=== PATIENT | female | born 1940 | race Caucasian/White ===

== ENCOUNTER 2017-12-20 02:26 | Outpatient (CLI) | payer MEDICARE, OTHER, SELFPAY ==
[2017-12-20 08:49] LABS: HGB 13.1 g/dL (12.0-15.5); Mean Corpuscular Hemoglobin 29.5 pg (27.0-33.0); Mean Corpuscular Volume 92.3 fL (80-95); Mean Platelet Volume 9.6 fL (8.0-11.0); Platelet Count 511 x1000/uL (130-400); RBC 4.44 m/cumm (4.00-5.20); RBC Distribution Width 14.3 % (11.7-14.6); White Blood Cell Count 7.12 k/cumm (4.4-10.8)
[2017-12-20 09:30] LABS: Hemoglobin A1C 6.8 % (4.5-6.2)
[2017-12-20 09:45] LABS: Iron 86 ug/dL (50-175)
== END 2017-12-20 02:46 ==
PROVIDERS: PCP Family Medicine; Visit Provider Family Medicine
DX: D64.9 Anemia, unspecified (principal); E11.9 Type 2 diabetes mellitus without complications
CPT/HCPCS: 36415; 80061; 83721; 85027; 83036; 83540

== ENCOUNTER 2018-03-21 01:41 | Outpatient (CLI) | payer MEDICARE, OTHER, SELFPAY ==
[2018-03-21 09:40] LABS: HCT 40.7 % (36.0-46.0); HGB 13.3 g/dL (12.0-15.5); Mean Corp. HGB Concentration 32.7 g/dL (32.0-36.0); Mean Corpuscular Hemoglobin 30.2 pg (27.0-33.0); Mean Corpuscular Volume 92.3 fL (80-95); Mean Platelet Volume 9.6 fL (8.0-11.0); Platelet Count 512 x1000/uL (130-400); RBC 4.41 m/cumm (4.00-5.20); RBC Distribution Width 14.6 % (11.7-14.6); White Blood Cell Count 7.42 k/cumm (4.4-10.8)
[2018-03-21 10:14] LABS: COMMENT (LAB VIEW ONLY) 142.56 mg/dL; Microalb ug/mg Crea 5.9 ug/mg Cr
[2018-03-21 10:22] LABS: ALT 41 U/L (12-78); AST 24 U/L (15-37); Albumin 3.5 g/dL (3.4-5.0); Alkaline Phosphatase 113 U/L (46-116); Anion Gap 10.2 mmol/L (3-11); BUN 19 mg/dL (7-18); Bilirubin, Total 0.4 mg/dL (0.2-1.0); CO2 27.8 mmol/L (21.0-32.0); CREATININE 0.84 mg/dL (0.55-1.02); Calcium 9.1 mg/dL (8.5-10.1); Chloride 103 mmol/L (98-107); Cholesterol 198 mg/dL (50-200); Ferritin 25 ng/mL (8-388); Glucose 133 mg/dL (70-100); HDL Cholesterol 76 mg/dL (40-60); LDL CHOLESTEROL 98 mg/dL (<100); Potassium 4.3 mmol/L (3.5-5.1); Sodium 141 mmol/L (136-145); TSH (W/Ref FT4) 3.82 uIU/mL (0.358-3.74); Total Protein 6.7 g/dL (6.4-8.2); Triglyceride 85 mg/dL (30-150)
[2018-03-21 11:07] LABS: FREE T4 0.93 ng/dL (0.76-1.46)
== END 2018-03-21 02:01 ==
PROVIDERS: PCP Family Medicine; Visit Provider Family Medicine
DX: F32.9 Major depressive disorder, single episode, unspecified
CPT/HCPCS: 36415; 80053; 80061; 83721; 85027; 82043; 82570; 82728; 83036; 83540; 84439; 84443

== ENCOUNTER 2018-07-03 10:25 | Outpatient (CLI) | payer MEDICARE, OTHER, SELFPAY ==
[2018-07-03 10:51] LABS: HGB 13.7 g/dL (12.0-15.5); Mean Corp. HGB Concentration 32.6 g/dL (32.0-36.0); Mean Corpuscular Hemoglobin 29.8 pg (27.0-33.0); Mean Corpuscular Volume 91.3 fL (80-95); Mean Platelet Volume 9.4 fL (8.0-11.0); Platelet Count 469 x1000/uL (130-400); RBC Distribution Width 14.5 % (11.7-14.6); White Blood Cell Count 6.92 k/cumm (4.4-10.8)
[2018-07-03 11:14] LABS: Hemoglobin A1C 6.9 % (4.5-6.2)
[2018-07-03 12:20] LABS: Iron 85 ug/dL (50-175)
[2018-07-03 12:31] LABS: TSH (W/Ref FT4) 3.09 uIU/mL (0.358-3.74)
== END 2018-07-03 10:45 ==
PROVIDERS: PCP Family Medicine; Visit Provider Family Medicine
DX: D64.9 Anemia, unspecified (principal); E11.9 Type 2 diabetes mellitus without complications; E03.9 Hypothyroidism, unspecified
CPT/HCPCS: 36415; 85027; 83036; 83540; 84443

== ENCOUNTER 2018-07-18 00:07 | Outpatient (CLI) | payer MEDICARE, OTHER, SELFPAY ==
--- NOTE | 2018-07-18 08:30 | ETT_ITS ---
*[facility]* *[facility]* [address] [place] [address] Stress Electrocardiography Jonas protocol Date of study: 07/18/2018 *PATIENT PRESENTATION* Height: 161.3cm (63.5in) Blood Pressure: Weight: 76.8kg (169lb) BSA: 1.88m^2 Referring physician: Rxoy Mehta Ordering physician: Roxy Mehta Impressions: Negative stress test after maximal exercise. Summary: 1. Stress ECG conclusions: The stress ECG is negative. Krishnan treadmill score: 7. This score predicts a low risk of cardiac events. 2. Stress: The target heart rate was achieved. The heart rate response to stress is normal. There is resting hypertension with an appropriate response to stress. The patient experienced no chest pain during stress. Exercise capacity is above normal for age. 3. Treadmill exercise testing was performed using the Jonas protocol. The patient exercised for 7 min, to protocol stage 2, to a maximal work rate of 8.6mets. Exercise was terminated due to fatigue. Indication: R07.9, Appropriate Use Criteria: A (Appropriate). History: REASON FOR VISIT: FOR PAST SEVERAL MONTHS PT REPORTS INTERMITTENT CHEST ACHES AND TIGHTNESS BROUGHT ON BY ACTIVITY, ASSOCIATED WITH SHORTNESS OF BREATH AND SOMETIMES WITH NAUSEA. PT IS RETIRED SHE DOES NOT DUE ANY REGULAR EXERCISE. Risk factors: FORMER SMOKER. QUIT 15 YEARS AGO. SMOKED FOR 40 YEARS, 1/4 PACK A DAY. Family history of coronary artery disease. Hypertension. Diabetes mellitus. Dyslipidemia. Cholesterol: 198mg/dl. HDL: 76mg/dl. LDL: 98mg/dl. Triglycerides: 85mg/dl. ALLERGIES: DOXYCYCLINE. MEDICATIONS: OMEPRAZOLE 20 MG DAILY. METFORMIN 500 MG BID. LOSARTAN 50 MG DAILY. IRON 18 MG DAILY. ESTRADIOL 1 TAB VG 2X/Q WK. ESCITALOPRAM OXALATE 10 MG DAILY. DULOXETINE 60 MG DAILY. VITAMIN D3 2000 UNITS DAILY. ATORVASTATIN 20 MG DAILY. ALBUTEROL SULFATE 2 PUFFS QID PRN. Protocol: Jonas protocol. Baseline ECG: SINUS RHYTHM. HR 77 BPM. Normal ECG. Stress protocol: + +---+ + !Stage !HR !BP (mmHg) ! + +---+ + !Baseline supine !77 !150/100 (117)! + +---+ + !Baseline standing !86 !150/96 (114) ! + +---+ + !Stage I; 1.7mph, 10degrees; 3 min !109!160/100 (120)! + +---+ + !Stage II; 2.5mph, 12degrees; 3 min!125!180/80 (113) ! + +---+ + !Recovery; 1 min !110!200/88 (125) ! + +---+ + !Recovery; 3 min !91 !180/80 (113) ! + +---+ + !Recovery; 6 min !88 !162/82 (109) ! + +---+ + * Stress results: Maximal heart rate during stress was 133bpm (92% of maximal predicted heart rate). The maximal predicted heart rate was 144bpm. The target heart rate was achieved. The heart rate response to stress is normal. There is resting hypertension with an appropriate response to stress. The rate-pressure product for the peak heart rate and blood pressure was 92469oh Hg/min. The patient experienced no chest pain during stress. Exercise capacity is above normal for age. Stress ECG: TREADMILL PORTION OF STRESS TEST ENDED IN 7 MINUTES DUE FATIGUE NORMAL HEART RATE AND BLOOD PRESSURE RESPONSE TO EXERERCISE MAX HR = 133 % OF TARGET = 92 PACs NOTED DURING RECOVERY PHASE. APPROXIMATE METS ACHIEVED = 8.58 NAUSEA AND DIZZYNESS REPORTED UPON IMMEDIATE RECOVERY SUBSIDED WITH LYING DOWN. 3 MINUTES POST EXERCISE CHEST TIGHTNESS REPORTED 2-3 OUT OF 10 ON PAIN SCALE, SUBSIDED WITHIN 2 MINUTES OF REST. 6 MINUTES POST EXERCISE BRIEF TWINGES IN HER LEFT CHEST. SUBSIDED AFTER A FEW SECONDS. NO SIGNIFICAN ST SEGMENT CHANGES ABOVE AVERAGE FUNCTIONAL CAPACITY FOR EXERCISE. The stress ECG is negative. Krishnan treadmill score: 7. This score predicts a low risk of cardiac events. Study data: James Blevins MD supervised and was readily available during the procedure. This study was interpreted by [facility]. Study status: Routine. Consent: The risks, benefits, and alternatives to the procedure were explained to the patient and informed consent was obtained. Procedure: Initial setup. A baseline ECG was recorded. Surface ECG leads and manual cuff blood pressure measurements were monitored. Heart sounds: Murmur. Lung sounds: Normal. Treadmill exercise testing was performed using the Jonas protocol. The patient exercised for 7 min, to protocol stage 2, to a maximal work rate of 8.6mets. Exercise was terminated due to fatigue. Study completion: The patient tolerated the procedure well and was discharged from the lab. Discharge: The patient left the laboratory in stable condition. Birthdate: Patient birthdate: 1940. Sex: Gender: female. Study date: Study date: 07/18/2018. Study time: 00:01 AM. Signature Documentation: The Stress ECG portion of this study was interpreted by James Blevins MD. Electronically signed by James Blevins 07/18/2018 11:01
== END 2018-07-18 00:27 ==
PROVIDERS: PCP Family Medicine; Visit Provider Family Medicine
DX: R07.9 Chest pain, unspecified (principal); R06.02 Shortness of breath; I10 Essential (primary) hypertension; E78.5 Hyperlipidemia, unspecified; Z87.891 Personal history of nicotine dependence; Z82.49 Family history of ischemic heart disease and other diseases of the circulatory system
CPT/HCPCS: 93016; 93018; 93017

== ENCOUNTER 2018-09-05 01:22 | Outpatient (CLI) | payer MEDICARE, OTHER, SELFPAY ==
[2018-09-05 11:21] LABS: Hemoglobin A1C 6.6 % (4.5-6.2)
== END 2018-09-05 01:42 ==
PROVIDERS: PCP Family Medicine; Visit Provider Family Medicine
DX: E11.9 Type 2 diabetes mellitus without complications (principal)
CPT/HCPCS: 36415; 83036

== ENCOUNTER 2019-01-15 02:07 | Outpatient (CLI) | payer MEDICARE, OTHER, SELFPAY ==
[2019-01-15 15:38] LABS: Abs Immature Grans 0.02 k/cumm (0.0-0.09); Absolute Basophil Count 0.04 k/cumm (0.0-0.2); Absolute Eosinophil Count 0.36 k/cumm (0.0-0.7); Absolute Lymphocyte Count 3.02 k/cumm (1.2-3.4); Absolute Neutrophil Count 5.85 k/cumm (1.2-6.7); Basophils % 0.4; Eosinophils % 3.5; HCT 41.2 % (36.0-46.0); HGB 13.5 g/dL (12.0-15.5); Immature Grans % 0.2; Lymphocytes % 29.6; Mean Corp. HGB Concentration 32.8 g/dL (32.0-36.0); Mean Corpuscular Hemoglobin 29.8 pg (27.0-33.0); Mean Corpuscular Volume 90.9 fL (80-95); Mean Platelet Volume 9.3 fL (8.0-11.0); Monocytes % 8.8; Neutrophils % 57.5; Platelet Count 501 x1000/uL (130-400); RBC 4.53 m/cumm (4.00-5.20); RBC Distribution Width 13.9 % (11.7-14.6); White Blood Cell Count 10.19 k/cumm (4.4-10.8)
[2019-01-15 16:13] LABS: Hemoglobin A1C 6.7 % (4.5-6.2); Iron 60 ug/dL (50-175)
[2019-01-15 17:26] LABS: ALT 22 U/L (14-59); AST 15 U/L (15-37); Albumin 3.6 g/dL (3.4-5.0); Alkaline Phosphatase 142 U/L (46-116); Anion Gap 12.4 mmol/L (3-11); BUN 20 mg/dL (7-18); Bilirubin, Total 0.2 mg/dL (0.2-1.0); CO2 24.6 mmol/L (21.0-32.0); CREATININE 0.92 mg/dL (0.55-1.02); Chloride 103 mmol/L (98-107); Estimated GFR 59.19 (mL/min/1.73m2); Ferritin 26 ng/mL (8-388); Glucose 101 mg/dL (70-100); Magnesium 1.8 mg/dL (1.8-2.4); Potassium 4.2 mmol/L (3.5-5.1); Sodium 140 mmol/L (136-145); TSH (W/Ref FT4) 2.51 uIU/mL (0.36-3.74)
[2019-01-15 18:13] LABS: Vitamin B12 1763 pg/mL (193-986)
== END 2019-01-15 02:27 ==
PROVIDERS: PCP Family Medicine; Visit Provider Family Medicine
DX: E11.9 Type 2 diabetes mellitus without complications (principal); I10 Essential (primary) hypertension; D50.9 Iron deficiency anemia, unspecified; D47.3 Essential (hemorrhagic) thrombocythemia; F32.9 Major depressive disorder, single episode, unspecified
CPT/HCPCS: 36415; 80053; 82607; 82728; 83036; 83540; 83735; 84443; 85025

== ENCOUNTER 2019-02-11 01:33 | Outpatient (CLI) | payer MEDICARE, OTHER, SELFPAY ==
[2019-02-11 11:17] LABS: Abs Immature Grans 0.01 k/cumm (0.0-0.09); Absolute Basophil Count 0.02 k/cumm (0.0-0.2); Absolute Eosinophil Count 0.28 k/cumm (0.0-0.7); Absolute Lymphocyte Count 2.15 k/cumm (1.2-3.4); Absolute Monocyte Count 0.44 k/cumm (0.11-0.7); Absolute Neutrophil Count 3.49 k/cumm (1.2-6.7); Basophils % 0.3; Eosinophils % 4.4; HCT 42.3 % (36.0-46.0); HGB 13.5 g/dL (12.0-15.5); Immature Grans % 0.2; Lymphocytes % 33.6; Mean Corp. HGB Concentration 31.9 g/dL (32.0-36.0); Mean Corpuscular Hemoglobin 29.1 pg (27.0-33.0); Mean Corpuscular Volume 91.2 fL (80-95); Monocytes % 6.9; Neutrophils % 54.6; Platelet Count 508 x1000/uL (130-400); RBC 4.64 m/cumm (4.00-5.20); RBC Distribution Width 14.2 % (11.7-14.6); White Blood Cell Count 6.39 k/cumm (4.4-10.8)
[2019-02-11 12:24] LABS: TSH (W/Ref FT4) 2.74 uIU/mL (0.36-3.74)
[2019-02-12 08:20] LABS: T3,Free 4.4 pg/mL (2.8-5.3)
[2019-02-13 12:42] LABS: Metanephrine, Free <0.20 nmol/L (<0.50); Normetanephrine, Free 1.1 nmol/L (<0.90)
== END 2019-02-11 01:53 ==
PROVIDERS: PCP Family Medicine; Visit Provider Family Medicine
DX: D47.3 Essential (hemorrhagic) thrombocythemia (principal); E04.1 Nontoxic single thyroid nodule; E11.9 Type 2 diabetes mellitus without complications; R61 Generalized hyperhidrosis
CPT/HCPCS: 36415; 83036; 83835; 84443; 84481; 85025

== ENCOUNTER 2019-02-11 10:42 | Outpatient (REF) | payer MEDICARE, OTHER, SELFPAY ==
[2019-02-11 15:49] LABS: Creatinine,Urine 154.42 mg/dL
[2019-02-11 15:50] LABS: Creatinine,24hr Ur 1.39 g/24hr (0.60-1.80); Total Volume 950 ml
[2019-02-14 17:48] LABS: Metanephrines, U 84 mcg/24 h; Normetanephrine, U 598 mcg/24 h; Total Metanephrines, U 682 mcg/24 h; Urine Volume 925 mL
[2019-02-15 14:53] LABS: Urine Volume 925 mL
== END 2019-02-11 11:02 ==
LOC: LBN 10:42
PROVIDERS: PCP Family Medicine; Visit Provider Family Medicine
DX: R61 Generalized hyperhidrosis (principal)
CPT/HCPCS: 81050; 82384; 82570; 83835

== ENCOUNTER 2019-02-21 02:21 | Outpatient (CLI) | payer MEDICARE, OTHER, SELFPAY ==
--- NOTE | 2019-02-21 12:50 | DI.US_ITS ---
EXAM: US THYROID CLINICAL HISTORY: thyroid mass on ct scan 2017 E04.1 TECHNIQUE: Ultrasound performed using standard protocol. COMPARISON: CAROTID ULTRASOUND from 02/03/2015 CHEST FOR PULMONARY EMBOLUS from 08/28/2016 FINDINGS: The right lobe measures 4.9 x 2.1 x 1.9 centimeters. There is a 3 x 1 x 1.5 centimeter cystic lesion in the lateral aspect of the right lobe of the thyroid gland. There is a thin septation seen superi david. No internal blood flow is present. There is a 1.2 x 0.9 x 0.9 centimeter lesion in the superi or pole of the right lobe of the thyroid gland. Lesion contains septations and a vascular solid compo nent internally. There are several smaller simple cystic lesions seen in the right lobe of the thyro id gland. There is also a small avascular solid nodule in the right lobe of the thyroid gland. This measures 0.6 centimeters. The left lobe measures 3.4 x 1.4 x 1.2 centimeters. There are several cystic lesions seen within the left lobe. There are 2 cystic lesions in the mid left lobe. They both measure 0.7 x 0.5 x 0.7 cent imeters. They each contain a thin septation and show no internal blood flow. The isthmus is within normal limits. IMPRESSION: Multinodular thyroid gland. Complex nodule in the upper pole of the right lobe of the thyroid gland. The nodule contains solid v ascular components internally. Due to the internal characteristics of this nodule, further evaluatio n is warranted. Biopsy should be considered.
== END 2019-02-21 02:41 ==
PROVIDERS: PCP Family Medicine; Visit Provider Family Medicine
DX: E04.2 Nontoxic multinodular goiter (principal); E07.89 Other specified disorders of thyroid
CPT/HCPCS: 76536

== ENCOUNTER 2019-03-04 10:47 | Outpatient (REF) | payer MEDICARE, OTHER, SELFPAY ==
[2019-03-07 10:29] LABS: 5-Hydroxyindoleacetic Acid, U 3.6 mg/24 h (<=8.6); Urine Volume 1325 mL
== END 2019-03-04 11:07 ==
LOC: LBN 10:47
PROVIDERS: PCP Family Medicine; Visit Provider Family Medicine
DX: R23.2 Flushing (principal); E04.2 Nontoxic multinodular goiter
CPT/HCPCS: 81050; 83497

== ENCOUNTER 2019-03-08 01:48 | Outpatient (CLI) | payer MEDICARE, OTHER, SELFPAY ==
[2019-03-08] MEDS: Breeza Beverage 473 ML BTL PO ×2 (07:05→07:06)
[2019-03-08] MEDS: Omnipaque 350 MG/ML 50 ML BTL PO (07:06)
[2019-03-08] MEDS: Omnipaque 350 MG/ML 100 ML BTL IV (07:46)
[2019-03-08] MEDS: Normal Saline Flush 10 ML SYR IVP (07:49)
[2019-03-08 07:56] LABS: ALT 27 U/L (14-59); AST 20 U/L (15-37); Albumin 3.3 g/dL (3.4-5.0); Alkaline Phosphatase 121 U/L (46-116); Anion Gap 8.8 mmol/L (3-11); BUN 21 mg/dL (7-18); Bilirubin, Total 0.2 mg/dL (0.2-1.0); CO2 26.2 mmol/L (21.0-32.0); CREATININE 0.79 mg/dL (0.55-1.02); Calcium 8.7 mg/dL (8.5-10.1); Chloride 106 mmol/L (98-107); Glucose 158 mg/dL (74-106); Potassium 3.9 mmol/L (3.5-5.1); Sodium 141 mmol/L (136-145); Total Protein 6.9 g/dL (6.4-8.2)
[2019-03-08 08:08] LABS: ESR 15 mm/hr (0-30)
--- NOTE | 2019-03-08 08:15 | DI.CT_ITS ---
EXAM: CT CHEST/ABD/PEL W CLINICAL HISTORY: ? carcinoid tumor flush/increased BP/h/o PE TECHNIQUE: Imaging Protocol: Axial computed tomography images with coronal and sagittal reformatted images were created and reviewed CONTRAST MATERIAL: Intravenous: Omnipaque 350 Contrast volume:100 mL contrast route:IV - Oral: Yes COMPARISON: ABD PELVIS WITH CONTRAST from 03/06/2012 ABD PELVIS WITH CONTRAST from 09/04/2013 CHEST FOR PULMONARY EMBOLUS from 07/26/2016 CHEST FOR PULMONARY EMBOLUS from 08/28/2016 FINDINGS: CHEST: Tracheobronchial tree: Patent where visualized. Mediastinum and Yulisa: No dominant adenopathy or fluid collection. Pulmonary parenchyma: Dependent atelectasis. No focal consolidating infiltrate. No pulmonary nodule . No architectural distortion. Pleura: No effusion or pneumothorax. Lymph nodes: Within normal limits. Aorta: Atherosclerosis. No aneurysmal dilatation. Thyroid gland: There are multiple bilateral thyroid nodules. The largest is in the lobe. Nonemergen t thyroid ultrasound may be obtained for further evaluation. Heart: There is no cardiomegaly or pericardial effusion. Coronary artery calcifications are present. Bones: Degenerative changes are present. ABDOMEN: Liver: There is diffuse fatty infiltration. No suspicious hepatic mass is seen. The portal, superio r mesenteric and splenic veins are patent. Gallbladder and biliary tract: Cholelithiasis. No biliary ductal dilatation. Pancreas: Normal density, no abnormal calcifications or inflammatory process. Spleen: There is a calcified granuloma. Kidneys: Normal size, contour and axis. No radiodense stones or obstructive uropathy. No masses seen. Adrenal glands: No masses seen. Aorta: Atherosclerosis. No aneurysmal dilatation. Lymph nodes: Within normal limits. PELVIS: Bladder: Symmetric distention, no gross wall thickening. Bowel: No obstruction or bowel wall thickening. No evidence of an acute appendicitis. There is a lar ge hiatal hernia. Peritoneal cavity: No ascites, collection or mesenteric inflammatory response. There has been no tucker ge in size or appearance of the 3.3 centimeter fluid attenuation lesion posterior to the descending c olon. This has been present and stable dating back to the oldest available CT scan from 03/06/2012. Bones: There are degenerative changes seen in the spine Reproductive organs: Unremarkable as visualized. IMPRESSION: 1. No evidence of an acute abdominal or pelvic process. 2. Hepatic steatosis. 3. Stable fluid attenuation lesion since 2011. 4. No acute pulmonary process. No evidence of a thoracic mass or metastatic disease. 5. Thyroid nodules. Thyroid ultrasound may be obtained for further evaluation. DATA REPOSITORY: All CT scans at this facility are submitted to the National Radiology Data Registry (NRDR) Dose Index Registry (DIR) with the [employer] (ACR). RADIATION OPTIMIZATION: All CT scans at this facility use at least one of these dose optimization te chniques: automated exposure control; mA and/or kV adjustment per patient size (includes targeted exa ms where dose is matched to clinical indication); or iterative reconstruction.
== END 2019-03-08 02:08 ==
PROVIDERS: PCP Family Medicine; Visit Provider Family Medicine
DX: R03.0 Elevated blood-pressure reading, without diagnosis of hypertension (principal); R23.2 Flushing; R61 Generalized hyperhidrosis; R68.89 Other general symptoms and signs; K76.0 Fatty (change of) liver, not elsewhere classified; E04.2 Nontoxic multinodular goiter; K80.20 Calculus of gallbladder without cholecystitis without obstruction; K44.9 Diaphragmatic hernia without obstruction or gangrene; Z86.711 Personal history of pulmonary embolism
CPT/HCPCS: 74177; 80053; 85652; 71260; J3490; Q9967

== ENCOUNTER 2019-03-29 03:13 | Outpatient (CLI) | payer MEDICARE, OTHER, SELFPAY ==
--- NOTE | 2019-03-29 13:52 | DI.US_ITS ---
APPROVED REPORT EXAM: Comprehensive 2D, Doppler, and color-flow Echocardiogram Patient Location: Out-Patient Disease Education Specialist: Nataliia Antonio RDCS (AE) Rhythm: NSR Indications: SOB FOLLOW UP z09 encounter for follow up examination after complete treatment for con ditions other than malignant. Conclusion Normal LV size and wall thickness, LV systolic function is hyperdynamic, EF 65-70% There is no chamber enlargement Mildy thickened mitral and aortic valve leaflets Trace mitral and aortic regurgitation Trace to mild pulmonic and tricus[pid regurgitation Wall motion Left Ventricle The left ventricle is normal size. Left ventricular systolic function is hyperdynamic. There is robert l left ventricular wall thickness. There is normal LV segmental wall motion. abnormal relax with vals vilchis. LVEF is estimated to be 65-70%. Right Ventricle The right ventricle is normal size. The right ventricular systolic function appears normal. Atria The left atrium size is normal. The right atrium size is normal. Aortic Valve Aortic valve is trileaflet. Aortic valve is mildly thickened There is no aortic valvular stenosis. Tr liudmila aortic regurgitation. Mitral Valve Mitral valve leaflets are mildly thickened. Trace mitral regurgitation. Tricuspid Valve The tricuspid valve is normal in structure. Mild tricuspid regurgitation. Pulmonic Valve Trace to mild pulmonic regurgitation. Great Vessels The aortic root is normal in size. The ascending aorta is top normal in size. IVC is normal in size a nd collapses >50% with inspiration. Pericardium Prominent anterior epicardial fat pad is present. 2D Dimensions IVSd 0.90 cm F: 0.6-1.0 LV EDV A2C 71.10 mL PWd 0.90 cm F: 0.6 - 1.0 LV EDV A4C 64.50 mL LVDd 4.10 cm F: 3.8 - 5.2 LA Volume Index A2C 21.13 mL/m2 LVDs 2.45 cm F: 2.2 - 3.5 LA Volume Index A4C 25.11 mL/m2 Aortic Root 3.25 cm F: 2.7 - 3.3 LA Volume Index Biplane 23.98 mL/m2 RA Area A4C 11.63 cm2 LA Area A4C 17.43 cm2 LVOT 1.90 cm (M/F) 1.5-2.5 LA Area A2C 16.65 cm2 Ascending Aorta 3.49 cm F: 2.3 - 3.1 EF AP4 65.27 % LVEF (Teich) 71.25 % EF AP2 68.64 % LVEF (Myers's) 66.69 % F: 54 - 74 EF BP 66.69 % LV Volume 51.83 mL F: 46 - 106 LV Volume Index 28.01 mL/m2 F: 29 - 61 FS 40.10 % LV Diastology E/A Ratio 0.7 MED E' 0.08 (>0.07 m/s) LV E/e MED 9.15 (<14) LAT E' 0.11 (>0.1 m/s) LV E/e LAT 7.05 (<14) Aortic Valve LVOT Area 2.94 cm2 LVOT Vmax 1.47 m/s LVOT Mean Santosh. 1.12 m/s LVOT Peak Gr. 8.6 mmHg AoV Area Vmax 0.00 m/s LVOT Mean Gr. 5.4 mmHg AoV Area/ BSA (Vmax) 0.96 cm2/m2 LVOT VTI 0.267 m EMMANUEL Mean Santosh. 0.00 m/s AoV Vmax 2.43 (0.5-1.3 m/s) EMMANUEL Mean Santosh. Index 1.09 cm2/m2 AoV Mean Santosh. 1.63 m/s AoV Peak Grad 23.7 mmHg AoV Mean Grad 12.1 (<5 mmHg) AoV VTI 0.411 (0.18-0.25 m) VTI Ratio 0.71 AoV Area VTI 2.07 (2.5-4.5 cm2) AoV Area/ BSA (VTI) 1.12 cm/m2 Mitral Valve MV E Max Santosh. 0.77 (0.4-1.3 m/s) MV A Velocity 1.10 (0.4-1.3 m/s) E/A Ratio 0.70 MV Decel. Time 173.40 (160-240 msec) MV PHT 50.29 msec MVA PHT 4.35 cm2 Pulmonary Valve PV Peak Velocity 1.16 (0.5-1.5 m/s) RVOT Peak Gr. 3.84 mmHg RVOT Peak Santosh. 0.98 m/s RVOT Mean Gr. 2.00 mmHg RVOT VTI 0.15 m Tricuspid Valve TR P. Velocity 3.01 m/s TV Regurg Vmax 3.01 m/s RAP Estimate 3.00 mmHg RVSP 39.00 mmHg TR P. Gradient 36.15 mmHg
== END 2019-03-29 03:33 ==
PROVIDERS: PCP Family Medicine; Visit Provider Family Medicine
DX: R06.02 Shortness of breath (principal); I34.8 Other nonrheumatic mitral valve disorders; I35.1 Nonrheumatic aortic (valve) insufficiency; I36.1 Nonrheumatic tricuspid (valve) insufficiency
CPT/HCPCS: 93306

== ENCOUNTER 2019-04-10 02:25 | Outpatient (CLI) | payer MEDICARE, OTHER, SELFPAY ==
[2019-04-10 09:53] LABS: Hemoglobin A1C 6.5 % (3.8-5.6)
[2019-04-10 10:42] LABS: ALT 40 U/L (14-59); AST 16 U/L (15-37); Albumin 3.6 g/dL (3.4-5.0); Alkaline Phosphatase 138 U/L (46-116); BUN 21 mg/dL (7-18); Bilirubin, Total 0.3 mg/dL (0.2-1.0); CREATININE 1.03 mg/dL (0.55-1.02); Calcium 9.6 mg/dL (8.5-10.1); Chloride 101 mmol/L (98-107); Estimated GFR 51.96 (mL/min/1.73m2); Glucose 137 mg/dL (74-106); Potassium 4.3 mmol/L (3.5-5.1); Sodium 140 mmol/L (136-145); TSH (W/Ref FT4) 4.06 uIU/mL (0.36-3.74); Total Protein 6.9 g/dL (6.4-8.2)
[2019-04-10 11:04] LABS: FREE T4 0.84 ng/dL (0.76-1.46)
[2019-04-11 05:41] LABS: Vitamin D 25 Total 58.5 ng/ml (30-100)
== END 2019-04-10 02:45 ==
PROVIDERS: PCP Family Medicine; Visit Provider Family Medicine
DX: I10 Essential (primary) hypertension (principal); E11.9 Type 2 diabetes mellitus without complications; E07.89 Other specified disorders of thyroid; M85.80 Other specified disorders of bone density and structure, unspecified site
CPT/HCPCS: 36415; 80053; 82306; 82397; 83036; 84439; 84443

== ENCOUNTER 2019-04-25 02:16 | Outpatient (CLI) | payer MEDICARE, OTHER, SELFPAY ==
[2019-04-25 10:30] LABS: HCT 42.2 % (36.0-46.0); HGB 13.8 g/dL (12.0-15.5); Mean Corp. HGB Concentration 32.7 g/dL (32.0-36.0); Mean Corpuscular Hemoglobin 29.6 pg (27.0-33.0); Mean Corpuscular Volume 90.4 fL (80-95); Platelet Count 512 x1000/uL (130-400); RBC 4.67 m/cumm (4.00-5.20); RBC Distribution Width 13.1 % (11.7-14.6); White Blood Cell Count 6.97 k/cumm (4.4-10.8)
[2019-04-25 11:30] LABS: Iron 60 ug/dL (50-170)
[2019-04-25 11:39] LABS: TSH (W/Ref FT4) 2.23 uIU/mL (0.36-3.74)
[2019-04-30 16:02] LABS: PTH-Related Peptide <0.4 pmol/L (< or = 4.2)
== END 2019-04-25 02:36 ==
PROVIDERS: PCP Family Medicine; Visit Provider Family Medicine
DX: D64.9 Anemia, unspecified (principal); E11.9 Type 2 diabetes mellitus without complications; E07.9 Disorder of thyroid, unspecified; I10 Essential (primary) hypertension; E03.9 Hypothyroidism, unspecified
CPT/HCPCS: 36415; 85027; 82397; 83036; 83540; 84443

== ENCOUNTER 2019-06-20 00:35 | Outpatient (CLI) | payer MEDICARE, OTHER, SELFPAY ==
--- NOTE | 2019-06-20 09:15 | DI.CT_ITS ---
EXAM: CT SINUS WO CLINICAL HISTORY: chronic sinusitis, J32.9 COMPARISON: No exams were available for comparison FINDINGS: CT examination of the paranasal sinuses was performed without contrast administration. Images obtain ed through the brain are unremarkable. The orbital structures appear intact. Mastoid air cells and temporal bone structures are unremarkable. There is moderate mucoperiosteal thickening of left maxillary antrum, ethmoid air cells, and frontal sinus. There may be fluid in left maxillary antrum. Ostiomeatal complex appears obstructed on the le ft. No significant findings involving the paranasal sinuses or nasal cavity on the right. The sphenoid s inuses are clear. IMPRESSION: Findings consistent with chronic and acute left maxillary, frontal, and ethmoid sinusitis. There shireen ears to be obstruction of the infundibulum of the ostiomeatal complex on the left. No sinus expansio n or bony erosion.
== END 2019-06-20 00:55 ==
PROVIDERS: PCP Family Medicine; Visit Provider Family Medicine
DX: J32.0 Chronic maxillary sinusitis (principal); J32.1 Chronic frontal sinusitis; J32.2 Chronic ethmoidal sinusitis
CPT/HCPCS: 70486

== ENCOUNTER 2019-09-17 16:04 | Outpatient (REF) | payer MEDICARE, OTHER, SELFPAY | END 2019-09-17 16:24 | LOC: LBN 16:04 | PROVIDERS: PCP Family Medicine; Visit Provider Family Medicine | DX: N76.0 Acute vaginitis (principal) | CPT/HCPCS: 87480; 87510; 87660 ==

== ENCOUNTER 2019-09-18 09:46 | Outpatient (CLI) | payer MEDICARE, OTHER, SELFPAY ==
--- NOTE | 2019-09-18 13:25 | DI.RAD_ITS ---
EXAM: XR KNEE RT 3V AP,LAT,JAYSON CLINICAL HISTORY: r knee pain, M25.561. TECHNIQUE: 2D digital imaging was performed. COMPARISON: CR LEFT ANKLE COMPLETE from 09/08/2014 FINDINGS: BONES: No acute fracture is present. No bony destructive lesion is seen. JOINTS: Femoral tibial joint spaces are mildly narrowed. There is mild periarticular spurring. Ther e is severe narrowing of the patellofemoral joint which shows moderate spurring. No joint effusion i s seen. SOFT TISSUE: Normal. 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 DATA REPOSITORY: RADIATION DOSE DELIVERED:
--- NOTE | 2019-09-18 13:30 | DI.RAD_ITS ---
EXAM: XR LUMBAR SPINE COMPLETE CLINICAL HISTORY: lbp, M54.5. TECHNIQUE: 2D digital imaging was performed. COMPARISON: No exams were available for comparison FINDINGS: BONES: Vertebral bodies are well maintained in height. Endplate osteophytes are seen throughout. Th ere is severe narrowing of the L3-4, L4-5 and L5-S1 disc spaces. Facet degenerative changes are also present at these levels. ALIGNMENT: Lumbar spinal alignment is within normal limits. SOFT TISSUE: Calcification is seen in the abdominal aorta.. IMPRESSION: Severe degenerative changes from L3-4 through L5-S1. DATA REPOSITORY: RADIATION DOSE DELIVERED:
== END 2019-09-18 10:06 ==
PROVIDERS: PCP Family Medicine; Visit Provider Family Medicine
DX: M54.5 Low back pain (principal); M51.37 Other intervertebral disc degeneration, lumbosacral region; M25.561 Pain in right knee; M17.11 Unilateral primary osteoarthritis, right knee; M22.2X2 Patellofemoral disorders, left knee
CPT/HCPCS: 73562; 72110

== ENCOUNTER 2019-10-18 10:10 | Outpatient (CLI) | payer MEDICARE, OTHER, SELFPAY ==
[2019-10-24 22:36] LABS: SARS-CoV-2 RNA Undetected (Undetected); SARS-CoV-2 Specimen Source Nasopharynx
== END 2019-10-18 10:30 ==
PROVIDERS: PCP Family Medicine; Visit Provider Family Medicine
DX: R05 Cough (principal)
CPT/HCPCS: U0003

== ENCOUNTER 2019-12-27 01:45 | Outpatient (CLI) | payer MEDICARE, OTHER, SELFPAY ==
[2019-12-27 12:48] LABS: HCT 37.4 % (36.0-46.0); HGB 11.9 g/dL (11.2-15.7); MCH 26.7 pg (27.0-33.0); MCHC 31.8 % (32.0-36.0); MPV 9.7 fL (8.0-11.0); Platelet Count 560 10^3/uL (130-400); RBC 4.45 10^6/uL (3.93-5.22); RDW 14.9 % (11.7-14.6); RDW-SD 45.1 fL; WBC 7.15 10^3/uL (4.4-10.8)
[2019-12-27 13:37] LABS: ALT 28 U/L (14-59); AST 19 U/L (15-37); Albumin 3.4 g/dL (3.4-5.0); Alkaline Phosphatase 152 U/L (46-116); Anion Gap 10.6 mmol/L (3-11); BUN 21 mg/dL (7-18); Bilirubin, Total 0.3 mg/dL (0.2-1.0); CO2 25.4 mmol/L (21.0-32.0); CREATININE 0.99 mg/dL (0.55-1.02); Calcium 9.2 mg/dL (8.5-10.1); Chloride 105 mmol/L (98-107); Estimated GFR 54.25 (mL/min/1.73m2); Glucose 171 mg/dL (74-106); Potassium 4.6 mmol/L (3.5-5.1); Sodium 141 mmol/L (136-145); TSH (W/Ref FT4) 2.45 uIU/mL (0.36-3.74); Total Protein 6.7 g/dL (6.4-8.2)
[2019-12-27 13:48] LABS: Hemoglobin A1C 7.1 % (<5.7)
== END 2019-12-27 02:05 ==
PROVIDERS: PCP Family Medicine; Visit Provider Family Medicine
DX: E03.9 Hypothyroidism, unspecified (principal); E11.9 Type 2 diabetes mellitus without complications; R53.83 Other fatigue
CPT/HCPCS: 36415; 80053; 85027; 83036; 84443

== ENCOUNTER 2020-04-08 04:21 | Outpatient (CLI) | payer MEDICARE, OTHER, SELFPAY ==
[2020-04-08 12:53] LABS: HCT 29.3 % (36.0-46.0); HGB 8.6 g/dL (11.2-15.7); MCH 22.8 pg (27.0-33.0); MCHC 29.4 % (32.0-36.0); MCV 77.7 fL (80-95); MPV 8.9 fL (8.0-11.0); RBC 3.77 10^6/uL (3.93-5.22); RDW 15.7 % (11.7-14.6); RDW-SD 43.8 fL; WBC 10.44 10^3/uL (4.4-10.8)
[2020-04-08 13:20] LABS: Hemoglobin A1C 7.2 % (<5.7)
[2020-04-08 13:21] LABS: Platelet Count 727 10^3/uL (130-400)
== END 2020-04-08 04:41 ==
PROVIDERS: PCP Family Medicine; Visit Provider Family Medicine
DX: E11.9 Type 2 diabetes mellitus without complications (principal); D47.3 Essential (hemorrhagic) thrombocythemia
CPT/HCPCS: 36415; 85027; 83036

== ENCOUNTER 2020-04-13 02:26 | Outpatient (CLI) | payer MEDICARE, OTHER, SELFPAY ==
[2020-04-13 09:04] LABS: Abs Immature Grans 0.04 10^3/uL (0.0-0.06); Absolute Basophil Count 0.08 10^3/uL (0.0-0.2); Absolute Eosinophil Count 0.33 10^3/uL (0.0-0.7); Absolute Lymphocyte Count 2.56 10^3/uL (1.2-3.4); Absolute Monocyte Count 0.61 10^3/uL (0.1-0.8); Absolute Neutrophil Count 4.95 10^3/uL (1.2-6.7); Basophils % 0.9; Eosinophils % 3.9; HCT 28.3 % (36.0-46.0); HGB 8.2 g/dL (11.2-15.7); Immature Grans % 0.5; Lymphocytes % 29.9; MCH 22.5 pg (27.0-33.0); MCV 77.7 fL (80-95); MPV 8.8 fL (8.0-11.0); Monocytes % 7.1; Neutrophils % 57.7; Nucleated RBC 0 %; Platelet Count 564 10^3/uL (130-400); RBC 3.64 10^6/uL (3.93-5.22); RDW 15.5 % (11.7-14.6); RDW-SD 43.4 fL; WBC 8.57 10^3/uL (4.4-10.8)
[2020-04-13 09:15] LABS: Prothrombin Time 9.9 sec (9.3-11.0)
[2020-04-13 09:26] LABS: Diff Comment RBC Morph Reviewed; Hypochromasia 2+; Microcytosis 1+; Poikilocytes 1+; Polychromasia Present
[2020-04-13 09:27] LABS: Iron 15 ug/dL (50-170)
[2020-04-13 09:40] LABS: Ferritin 8 ng/mL (8-252); TSH (W/Ref FT4) 2.25 uIU/mL (0.36-3.74)
== END 2020-04-13 02:46 ==
PROVIDERS: PCP Family Medicine; Visit Provider Family Medicine
DX: D64.9 Anemia, unspecified (principal); E03.9 Hypothyroidism, unspecified; R53.83 Other fatigue
CPT/HCPCS: 36415; 82728; 83540; 84443; 85025; 85610

== ENCOUNTER 2020-04-23 04:19 | Outpatient (RCR) | payer MEDICARE, OTHER, SELFPAY ==
[2020-04-15] MEDS: SODIUM FER. GLUC./SUC. 125 MG in Normal Saline 100 ML 110 MG IVPB (13:13)
[2020-04-15] MEDS: Normal Saline Flush 10 ML SYR IVP (13:24)
[2020-04-23] MEDS: SODIUM FER. GLUC./SUC. 125 MG in Normal Saline 100 ML 110 MG IVPB (12:42)
[2020-04-23] MEDS: Normal Saline Flush 10 ML SYR IVP (12:42)
[2020-04-23 12:46] VITALS: BP 142/70; PULSE 106; RESP 22; O2SAT 94
== END 2020-05-03 23:59 | disposition home or self-care (01) ==
LOC: INF 04:19
PROVIDERS: PCP Family Medicine; Visit Provider Family Medicine
DX: D50.9 Iron deficiency anemia, unspecified (principal)
CPT/HCPCS: 96365; J2916

== ENCOUNTER 2020-04-28 03:35 | Outpatient (CLI) | payer MEDICARE, OTHER, SELFPAY ==
[2020-04-28 12:41] LABS: HCT 32.6 % (36.0-46.0); HGB 9.4 g/dL (11.2-15.7); MCH 22.8 pg (27.0-33.0); MCHC 28.8 % (32.0-36.0); MCV 79.1 fL (80-95); MPV 9.4 fL (8.0-11.0); Platelet Count 698 10^3/uL (130-400); RBC 4.12 10^6/uL (3.93-5.22); RDW 20.2 % (11.7-14.6); RDW-SD 52.4 fL; WBC 8.69 10^3/uL (4.4-10.8)
[2020-04-28 13:09] LABS: ALT 24 U/L (14-59); AST 15 U/L (15-37); Albumin 3.5 g/dL (3.4-5.0); Alkaline Phosphatase 183 U/L (46-116); Anion Gap 9.8 mmol/L (3-11); BUN 25 mg/dL (7-18); Bilirubin, Total 0.3 mg/dL (0.2-1.0); CO2 24.2 mmol/L (21.0-32.0); CREATININE 1.05 mg/dL (0.55-1.02); Calcium 9.2 mg/dL (8.5-10.1); Chloride 102 mmol/L (98-107); Estimated GFR 50.69 (mL/min/1.73m2); Glucose 243 mg/dL (74-106); Potassium 4.8 mmol/L (3.5-5.1); Sodium 136 mmol/L (136-145); Total Protein 7.2 g/dL (6.4-8.2)
[2020-04-28 13:19] LABS: NT-proBNP 23 pg/mL (<300)
[2020-04-28 13:23] LABS: D-Dimer 5183 ng/mlFEU (<500)
== END 2020-04-28 03:55 ==
PROVIDERS: PCP Family Medicine; Visit Provider Family Medicine
DX: R06.02 Shortness of breath (principal); R53.83 Other fatigue; D64.9 Anemia, unspecified
CPT/HCPCS: 36415; 80053; 85027; 83880; 85379

== ENCOUNTER 2020-04-28 12:31 | Outpatient (CLI) | payer MEDICARE, OTHER, SELFPAY ==
--- NOTE | 2020-04-28 13:30 | DI.CT_ITS ---
EXAM: CT CHEST/ABD/PEL WO CLINICAL HISTORY: severe SOB, fatigue, anemia, R53.83, D64.9, R06.02. TECHNIQUE: Imaging Protocol: Axial computed tomography images with coronal and sagittal reformatted images were created and reviewed CONTRAST MATERIAL: Intravenous: Omnipaque 350 Contrast volume:82 cc. Oral: / no COMPARISON: CT CT CHEST/ABD/PEL W from 03/08/2019 FINDINGS: There is infiltration of the IV during the injection. Contrast is noted within the renal collecting systems. CHEST: Tracheobronchial tree: Patent where visualized. Mediastinum and Yulisa: No dominant adenopathy or fluid collection. Pulmonary parenchyma: Mild dependent changes. No consolidation or dominant measurable mass. No arch itectural distortion. Pleura: No effusion or pneumothorax. Lymph nodes: Within normal limits. Aorta: Thoracic portion non-dilated. Mild calcification. Normal diameter. Heart: Normal size. Mild coronary artery calcifications. Bones: ABDOMEN: Liver: Normal density. No measurable mass. Gallbladder and biliary tract: No radiodense calculus or dilation. Pancreas: Normal density, no abnormal calcifications or inflammatory process. Spleen: Normal. Kidneys: Normal size, contour and axis. No radiodense stones or obstructive uropathy. No masses seen. Adrenal glands: No masses seen. Aorta: Abdominal portion non-dilated. Lymph nodes: Within normal limits. PELVIS: Bladder: Symmetric distention, no gross wall thickening. Bowel: Moderate-sized hiatal hernia. No obstruction or bowel wall thickening. Mild diverticulosis s igmoid. Peritoneal cavity: No ascites, collection or mesenteric inflammatory response. Stable smoothly margin ated fluid collection posterior to the descending colon. Bones: Degenerative changes. No compression fractures. Reproductive organs: Status post hysterectomy. IMPRESSION: Somewhat limited exam due to IV malfunction. No acute abnormality is demonstrated in the chest, abdo men or pelvis. RADIATION DOSE DELIVERED: 701.95 mGy.cm Total DLP DATA REPOSITORY: All CT scans at this facility are submitted to the National Radiology Data Registry (NRDR) Dose Index Registry (DIR) with the [employer] (ACR). RADIATION OPTIMIZATION: All CT scans at this facility use at least one of these dose optimization te chniques: automated exposure control; mA and/or kV adjustment per patient size (includes targeted exa ms where dose is matched to clinical indication); or iterative reconstruction.
--- NOTE | 2020-04-28 17:21 | DI.VRAD_ITS ---
PROCEDURE INFORMATION: Exam: CT Chest Without Contrast; Diagnostic Exam date and time: 04/28/2020 4:20 PM Age: 79 years old Clinical indication: Other: Fatigue, anemia; Shortness of breath TECHNIQUE: Imaging protocol: Diagnostic computed tomography of the chest without contrast. Radiation optimization: All CT scans at this facility use at least one of these dose optimization techniques: automated exposure control; mA and/or kV adjustment per patient size (includes targeted exams where dose is matched to clinical indication); or iterative reconstruction. COMPARISON: CT CHEST/ABD/PEL W 03/08/2019 8:15 AM FINDINGS: Lungs: The central airways are patent. There is no bronchiectasis or bronchiolectasis. There is mild bibasilar atelectasis, left greater than right, without clear change from prior study. Lungs otherwise clear. Pleural space: There are no layering pleural effusions. Heart: There is mild coronary artery calcification. Mediastinal space: Again noted is a moderate sliding hiatal hernia. Aorta: There is mild to moderate atherosclerotic calcification of the thoracic aorta without aneurysm formation. Lymph nodes: There is no thoracic adenopathy. Bones/joints: Multilevel [id number] degenerative changes. No acute fracture. Soft tissues: Unremarkable. IMPRESSION: 1. No evidence for infectious or neoplastic process within the chest. 2. Moderate sliding hiatal hernia. PROCEDURE INFORMATION: Exam: CT Abdomen And Pelvis Without Contrast Exam date and time: 04/28/2020 4:20 PM Age: 79 years old Clinical indication: Other: Fatigue, anemia; Shortness of breath TECHNIQUE: Imaging protocol: Computed tomography of the abdomen and pelvis without contrast. Radiation optimization: All CT scans at this facility use at least one of these dose optimization techniques: automated exposure control; mA and/or kV adjustment per patient size (includes targeted exams where dose is matched to clinical indication); or iterative reconstruction. COMPARISON: CT CHEST/ABD/PEL W 03/08/2019 8:15 AM FINDINGS: Liver: The liver parenchyma demonstrates normal attenuation, without evidence for steatosis. Gallbladder and bile ducts: Normal. No calcified stones. No ductal dilation. Pancreas: The pancreas is moderately atrophic but appears otherwise unremarkable without focal lesion or evidence of acute inflammation. Spleen: There is a punctate calcification in the spleen, as on prior study, suggesting a tiny granuloma. The spleen is normal in size. Adrenal glands: Normal. No mass. Kidneys and ureters: There is contrast opacified urine within the renal collecting systems and ureters suggesting recent intravenous contrast administration. Stomach and bowel: There are scattered distal colonic diverticula without evidence for acute diverticulitis. There is no evidence for bowel obstruction or inflammation. There is a 3.5 x 2.4 cm homogeneous fluid density lesion posterior to the descending colon which partially abuts the posterior wall of the descending colon in this region, as seen on image 61, series 6, stable since prior study. Appendix: The appendix is not clearly visualized, but there is no right lower quadrant inflammatory change identified. Intraperitoneal space: Unremarkable. No free air. No significant fluid collection. Vasculature: There is moderate atherosclerotic calcification of the abdominal aorta and iliac arteries without aneurysm formation. Lymph nodes: Unremarkable. No enlarged lymph nodes. Urinary bladder: Unremarkable as visualized. Reproductive: The patient is status post hysterectomy. Bones/joints: There is mild facet arthrosis of the lower lumbar spine as well as multilevel moderate degenerative disc disease of the lumbar spine. No acute fractures are identified. Soft tissues: Unremarkable. IMPRESSION: 1. No evidence for neoplasm or inflammatory process within the abdomen or pelvis. 2. Stable fluid attenuation lesion posterior to the descending colon, likely benign. Dictated and Authenticated by: Adam Austin MD. Ordering:LISA Ramsey MD
== END 2020-04-28 12:51 ==
PROVIDERS: PCP Family Medicine; Visit Provider Family Medicine
DX: R06.02 Shortness of breath (principal); D64.9 Anemia, unspecified; R53.83 Other fatigue; K44.9 Diaphragmatic hernia without obstruction or gangrene
CPT/HCPCS: 36415; 71250; 80053; 85027; 74176; 83880; 85379

== ENCOUNTER 2020-04-28 18:07 | Observation (INO) | payer MEDICARE, OTHER, SELFPAY ==
[2020-04-28] VITALS (15 sets, daily range): BP systolic 141–159; BP diastolic 75–92; PULSE 88–103; RESP 14–26; TEMP 36.6–36.9; O2SAT 94–98
--- NOTE | 2020-04-28 18:00 | RT.EKG_ITS ---
APPROVED REPORT Exam: Resting ECG Patient Location: E HR:98 bpm ECG Measurements Heart Rate 98 AXIS PA 149 P 57 QRSd 87 QRS 46 QT 370 T 59 QTc 473 Conclusion Sinus rhythm...normal P axis, V-rate 60- [address]-T changes Normal [place]
--- NOTE | 2020-04-28 18:15 | DI.CT_ITS ---
EXAM: CT CHEST PE CTA CLINICAL HISTORY: sob. TECHNIQUE: Imaging Protocol: Axial CT angiography was performed with multi-slice acquisition and mu lti-planar and/or 3D reconstructions. CONTRAST MATERIAL: Intravenous: Omnipaque 350 Contrast volume:100 cc COMPARISON: CT CT CHEST/ABD/PEL WO from 04/28/2020 FINDINGS: Pulmonary Arteries: Bilateral pulmonary emboli are seen. Emboli are noted in the posterior segment r ight upper lobe branches and the apical segment of the right upper lobe. Right middle lobe subsegmen lynda emboli are seen. Emboli are seen in the right lower lobe branches. Additional emboli are seen i n the left upper lobe subsegmental branches and lingula as well as basilar segmental branch.. There is no abnormal dilatation of the pulmonary arteries.. Tracheobronchial tree: Patent where visualized. Mediastinum and Yulisa: No dominant adenopathy or fluid collection. Pulmonary parenchyma: Mild dependent changes. No consolidation or dominant measurable mass. No archi tectural distortion. Pleura: No effusion or pneumothorax. Heart: The heart is not dilated. No coronary artery calcifications are seen. No evidence of right hea rt strain. Aorta: Thoracic aorta non-dilated. Minimal atherosclerotic changes. Upper abdomen: Hiatal hernia, moderate sized. Bones: Degenerative disc changes. No compression fractures. IMPRESSION: Bilateral pulmonary emboli, right greater than left. No saddle embolus or evidence right heart strai n. RADIATION DOSE DELIVERED: 360.52mGy.cm Total DLP DATA REPOSITORY: All CT scans at this facility are submitted to the National Radiology Data Registry (NRDR) Dose Index Registry (DIR) with the [employer] (ACR). RADIATION OPTIMIZATION: All CT scans at this facility use at least one of these dose optimization te chniques: automated exposure control; mA and/or kV adjustment per patient size (includes targeted exa ms where dose is matched to clinical indication); or iterative reconstruction.
--- NOTE | 2020-04-28 18:41 | ED.GENADUL_ITS ---
Discharge Plan Disposition Patient Disposition: [facility] INPATIENT Condition: Fair Discharge Details Clinical Impression: Pulmonary emboli Primary Care Provider: Roxy Mehta ED Provider: Joyce Davalos Home Meds and New Rx's Prescriptions: No Action estradiol [Yuvafem] 10 mcg tablet 10 mcg VG .twice a week Qty: 24 RF: 4 Shingrix (PF) 50 mcg/0.5 mL suspension for reconstitution 0.5 ml IM ONCE Qty: 1 RF: 1 albuterol sulfate [Ventolin HFA] 90 mcg/actuation HFA aerosol inhaler 2 puff IH QID PRN (Reason: shortness of breath or wheezing) Qty: 8.5 RF: 0 (DME) Aerochamber MV Spacer See Rx Instructions .ROUTE .MEDSUPPLY Qty: 1 RF: 0 FLONASE 16 GM SPRAY.SUSP 2 spry NS DAILY PRNRF: 4 TEST STRIP 1 EACH strip 1 strip SQ DAILY Qty: 90 RF: 12 cholecalciferol (vitamin D3) [Vitamin D3] 2,000 UNIT capsule 2,000 unit PO DAILY RF: 0 EZ Tears 2 tab PO DAILY RF: 0 omeprazole 20 mg capsule,delayed release(DR/EC) 20 mg PO DAILY Qty: 90 RF: 12 levothyroxine [Levoxyl] 50 mcg tablet 50 mcg PO DAILY Qty: 90 RF: 4 losartan 50 mg tablet 50 mg PO DAILY Qty: 90 RF: 5 prednisone 20 mg tablet 20 mg PO BID Qty: 10 RF: 0 acetaminophen [Tylenol] 325 MG tablet 650 mg PO Q6H PRN PRNQty: 30 RF: 0 Medical Decision Making Patient presents for CTA of the chest which has been ordered. An IV has been established accordingly. She is oxygenating in the high 90s on room air with clear breath sounds no cough or fever noted cta shows multiple segmental and subsegmental emboli with both lungs. Will be started on heparin for PE protocol. Stools for occult blood have been negative x3 during an outpatient work-up for her recent anemia. She will be referred to observation under hospitalist services. Reporting care patient is handed off to Dr. Anders. Medical Records Medical records reviewed: Yes I reviewed the patient's medical records. Lab Data Lab results reviewed: Yes I reviewed the patient's lab results. HPI General Mode of arrival: ambulatory . Date/Time Provider Initiated Documentation: 04/28/20 18:15 . Limitations to Documentation: no limitations . Information obtained by: patient . HPI Narrative: Patient referred to the emergency department for CTA of the chest which they tried to obtain earlier today as an outpatient but they were unable to gain IV access. She reports that she has had increased shortness of breath. She denies any fevers chest pain leg swelling or pain. Related Data Home Medications Medication Instructions Recorded Confirmed Flonase 2 spry NS DAILY PRN spray 07/12/12 04/28/20 cholecalciferol (vitamin D3) 2,000 unit PO DAILY 07/28/16 04/28/20 [Vitamin D3] Ez Tears 2 tab PO DAILY 06/01/17 04/28/20 acetaminophen [Tylenol] 650 mg PO Q6H PRN PRN #30 tab 07/20/17 04/28/20 albuterol sulfate 90 mcg/actuation 2 puff IH QID PRN #8.5 gm 05/29/19 04/28/20 aerosol inhaler inhalational spacing device #1 each 05/29/19 04/28/20 estradiol 10 mcg vaginal tablet 10 mcg VG .twice a week #24 tab 09/17/19 04/28/20 omeprazole 20 mg capsule,delayed 20 mg PO DAILY #90 tab-cap 09/18/19 04/28/20 release varicella-zoster glycoE [id number] 0.5 ml IM ONCE #1 ea 01/14/20 04/28/20 adj(PF) 50 mcg/0.5 mL IM susp, kit levothyroxine 50 mcg tablet 50 mcg PO DAILY #90 tab 04/20/20 04/28/20 losartan 50 mg tablet 50 mg PO DAILY #90 tab 04/20/20 04/28/20 prednisone 20 mg tablet 20 mg PO BID #10 tab 04/26/20 04/28/20 Previous Rx's Medication Instructions Recorded acetaminophen [Tylenol] 650 mg PO Q6H PRN PRN #30 tab 07/20/17 albuterol sulfate 90 mcg/actuation 2 puff IH QID PRN #8.5 gm 05/29/19 aerosol inhaler inhalational spacing device #1 each 05/29/19 estradiol 10 mcg vaginal tablet 10 mcg VG .twice a week #24 tab 09/17/19 omeprazole 20 mg capsule,delayed 20 mg PO DAILY #90 tab-cap 09/18/19 release varicella-zoster glycoE [id number] 0.5 ml IM ONCE #1 ea 01/14/20 adj(PF) 50 mcg/0.5 mL IM susp, kit levothyroxine 50 mcg tablet 50 mcg PO DAILY #90 tab 04/20/20 losartan 50 mg tablet 50 mg PO DAILY #90 tab 04/20/20 prednisone 20 mg tablet 20 mg PO BID #10 tab 04/26/20 Allergies Allergy/AdvReac Type Severity Reaction Status Date / Time doxycycline Allergy PRURITIS Verified 04/13/20 11:33 General Stated Complaint: SOB MITRA: 2 Review of Systems Constitutional Constitutional: Denies anorexia and Denies fever(s) ENT Ears, Nose, Mouth, and Throat: Denies vertigo and Denies dizziness Cardiovascular Cardiovascular: Denies chest pain, Denies leg edema, Denies lightheadedness and Reports dyspnea Respiratory Respiratory: Denies pain on inspiration, Reports dyspnea and Denies wheezing Musculoskeletal Musculoskeletal: Denies myalgias Neurologic Neurologic: Denies vertigo and Denies dizziness Allergic/Immunologic Allergic/Immunologic: Denies wheezing [facility] Medical History (Updated 04/28/20 @ 19:51 by Joyce Davalos NP) Abdominal mass (10/02/12) Abnormal mammogram 03/02/00 left breast=cyst;2001-right breast, per U/[facility] at [facility] [place]simple cysts, also a recent biopsy Abnormal mammography (03/02/00) Abnormal weight loss 02/14/12 Allergic rhinitis Anemia Arthritis of both knees (01/26/15) Cataract Cervical arthritis with foraminal encroachment chiro care Chronic rhinitis Colon polyp Colon polyps hyperplastic polyps Depressive disorder Depressive disorder Diabetes mellitus Diabetes mellitus (07/17/12) Diverticulosis Diverticulosis of colon without diverticulitis (09/28/11) Elevated liver function tests (08/27/13) Elevated platelet count (02/03/15) persistent and increasing referral to hemotology Colonoscopy,EGD, Bone marrow BX Essential hypertension (03/15/13) Family history of malignant neoplasm of breast Family hx-breast malignancy grandmother,aunt and mother Gastroesophageal reflux disease GERD (gastroesophageal reflux disease) GERD (gastroesophageal reflux disease) Hiatal hernia Hyperlipidemia Hyperlipidemia (10/29/12) Hypoferremia (09/03/15) Iron deficiency anemia 04/30/15; DR. CORRALES Iron deficiency anemia, unspecified Low ferritin (03/24/15) Low ferritin level (03/24/15) Low serum iron (09/03/15) Memory changes (12/15/15) MMSE NSAID induced gastritis Osteopenia Osteopenia (03/02/03) normal Vitamin D level T-scores -1.8, -1.1, -0.8 Post zoster neuralgia Primary fibromyalgia syndrome Pulmonary emboli Pulmonary embolism 08/2016 Stress due to spouse with dementia (06/01/17) Stress due to spouse with dementia Thrombocytosis Thyroid cyst (03/24/15) on carotid us 2+cm cyst Surgical History (Updated 04/08/19 @ 15:12 by Roxy Mehta MD, [place]) Abdominal hysterectomy HAS 1 OVARY Arthroplasty of knee 08/03/15-LEFT KNEE BUNIONECTOMY 2006,2007 section Colonoscopy - IV Sedation (09/14/11) DR. JOYA-HYPERPLASTIC POLYPS; DIVERTICULOSIS EGD - IV Sedation 03/12/12 ; 02/2014 DR. CORRALES Excision, Lesion (07/20/17) right breast skin lesion - seborrrheic keratosis Extraction of cataract H/O abdominal hysterectomy H/O bilateral salpingectomy H/O cataract removal with insertion of prosthetic lens H/O section H/O esophagogastroduodenoscopy 04/03/11 Dr. Joya-2011, Dr. Corrales--02/2014 H/O knee surgery 12/11/14 repair of left medial meniscal tear History of bilateral salpingectomy History of cataract removal with insertion of prosthetic lens History of section Meniscectomy 12/11/14; [facility]; LEFT PARTIAL KNEE S/P abdominal hysterectomy one ovary remains S/P bunionectomy 2006,2007 S/P total knee replacement 08/02/15 left SALPINGECTOMY B/L Status post bunionectomy Status post total knee replacement Family History (Updated 09/18/19 @ 09:53 by Amada Delgado) Mother , 83 Renal failure syndrome Essential hypertension Depression Heart disease Hyperlipidemia Breast cancer Father , 82 Essential hypertension Depression Heart disease Hyperlipidemia Stroke Sister Essential hypertension Depression Brother , MVA at age 21. No problems noted. Maternal Grandfather , 78 Stroke Paternal Grandfather Heart disease Maternal Grandmother , 93 Heart disease Breast cancer Paternal Grandmother No problems noted. Sister Depression Son No problems noted. Social History (Updated 09/18/19 @ 09:51 by Amada Delgado) Smoking/Tobacco Use Status: Former Tobacco Use Tobacco: How many years used: 35 Quit status: quit date established Second Hand Exposure: Yes Smoking risk assessment performed?: Yes Alcohol Intake: current Alcohol Intake frequency: a few times a week Alcohol type: wine Counseling provided: reduce to 2 or less/day Drug use: Never Substance use type: does not use Counseling given: No Household members: spouse and none Housing: house Communication Needs: Hard of Hearing Do you need help understanding health information?: Rarely Pets and animals: No Sexually active: No Do you think of yourself as: straight/heterosexual Current gender identity: female What is your relationship status?: How often do you talk on the phone with friends or family?: three or more times per week How often do you get together with friends or relatives?: once per week How often do you attend mormonism or buddhism services?: decline to answer Do you belong to any clubs or organized social groups?: yes Panel score (0-1 are the most socially isolated patients): 2 What type of physical activity do you participate in: walking Duration: 45-60 minutes/day Frequency: 5-6 times per week Corinna/Holiness: none Special corinna needs: No Seatbelt use: always Helmet use: No Drive intox or ride w/intox laundry route driver: No Do you feel safe at home: Yes Do you feel safe in your relationship?: Yes Exam Const General: cooperative, healthy appearing, comfortable, no acute distress and well groomed Nutritional Appearance: average body habitus Orientation: alert, awake and oriented x3 [facility] Head: normal to inspection, normocephalic and atraumatic Mouth: oral mucosae normal Resp Effort & Inspection: normal respiratory effort Auscultation: clear to auscultation bilaterally Cardio Rate: regular rate Rhythm: regular rhythm GI Inspection: normal to inspection Palpation: soft Skin General skin exam: no rashes or lesions noted Neuro General: patient alert, patient awake, patient oriented x3 and no focal motor deficits Extrem General: normal to inspection, full ROM and no edema Course Vital Signs Vital signs: Vital Signs Temperature 36.9 C 04/28/20 18:20 Pulse 96 H 04/28/20 18:20 Respiratory Rate 19 01/26/21 18:20 Blood Pressure 159/92 H 04/28/20 18:20 Pulse Oximetry 98 04/28/20 18:20 Temperature 36.9 C 04/28/20 18:20 Temperature Source Temporal Artery Scan 04/28/20 18:20 Pulse 92 H 04/28/20 18:35 Pulse 97 H 04/28/20 18:36 Respiratory Rate 22 04/28/20 18:36 Respiratory Effort Labored 04/28/20 18:25 Blood Pressure 159/92 H 04/28/20 18:35 Blood Pressure Mean 105 04/28/20 18:35 Blood Pressure Position Supine 04/28/20 18:20 Pulse Oximetry 96 04/28/20 18:35 Oxygen Delivery Method Room Air 04/28/20 18:20 Oxygen Flow Rate 0 04/28/20 18:20 Pain Level 0 04/28/20 18:20
[2020-04-28] MEDS: Omnipaque 350 MG/ML 100 ML BTL IV (18:59)
[2020-04-28] MEDS: Normal Saline - Diluent 50 ML VIAL IV (19:00)
--- NOTE | 2020-04-28 19:43 | DI.VRAD_ITS ---
PROCEDURE INFORMATION: Exam: CT Angiography Chest With Contrast Exam date and time: 04/28/2020 6:52 PM Age: 79 years old Clinical indication: Other: SOB TECHNIQUE: Imaging protocol: Computed tomographic angiography of the chest with intravenous contrast. 3D rendering (Not supervised by radiologist): MIP and/or 3D reconstructed images were created by the technologist. Radiation optimization: All CT scans at this facility use at least one of these dose optimization techniques: automated exposure control; mA and/or kV adjustment per patient size (includes targeted exams where dose is matched to clinical indication); or iterative reconstruction. Contrast material: OMNIPAQUE 350; Contrast volume: 100 ml; Contrast route: INTRAVENOUS (IV); COMPARISON: CT CHEST FOR PULMONARY EMBOLUS 08/28/2016 12:09 PM FINDINGS: Pulmonary arteries: There are multiple new segmental and subsegmental emboli within both lungs. There are new nonocclusive pulmonary emboli within 2 adjacent subsegmental branches within the posterior segment of the right upper lobe on image 223, series 10. There are new nonocclusive subsegmental pulmonary emboli within the apical segment of the right upper lobe around image 160, series 10. There is new occlusive pulmonary embolism within the medial segment right middle lobe pulmonary artery on image 281, series 10. There is new nonocclusive pulmonary embolism within the lateral segment of the right middle lobe extending into distal subsegmental branches. There is a new nearly occlusive pulmonary embolism within a lateral subsegmental pulmonary arterial branch within the superior segment of the right lower lobe on image 280, series 10. There is a new nonocclusive thrombus within the descending right lower lobe pulmonary artery extending into multiple basilar segmental branches. There are new subsegmental nonocclusive pulmonary emboli within the apicoposterior segment of the left upper lobe around image 160, series 10. There is new nearly occlusive thrombus within subsegmental branches within the anterior segment of the left upper lobe around image 231, series 10. There are new subsegmental PE within the lingula on image 283 as well as within posterolateral basilar left lower lobe segmental and subsegmental branches around image 325. The pulmonary arteries are not dilated. Aorta: Unremarkable. No aortic aneurysm. No aortic dissection. Lungs: There are regions of mild subsegmental atelectasis at the lung bases, similar to prior study. Lungs otherwise clear. Pleural space: Unremarkable. No pneumothorax. No pleural effusion. Heart: Heart size is within normal limits. The right ventricular to left ventricular ratios is 0.86 which is within normal limits. There is no reflux of contrast into the inferior vena cava. There is no pericardial effusion. Mediastinal space: There is a moderate sliding hiatal hernia, without clear change from prior study. Lymph nodes: Unremarkable. No enlarged lymph nodes. Bones/joints: There is multilevel moderate spondylosis throughout the thoracic spine. No acute compression fractures are identified. Soft tissues: Unremarkable. IMPRESSION: 1. Multiple new segmental and subsegmental acute pulmonary emboli within all lobes as described above. 2. No CT evidence of right heart strain. 3. Moderate sliding hiatal hernia, as on prior study. COMMENTS: THIS REPORT CONTAINS FINDINGS THAT MAY BE CRITICAL TO PATIENT CARE. The exam findings were verbally communicated by me to Dr. Ashby via telephone conference at 7:40 PM EST on 04/28/2020. The findings were acknowledged and understood. Dictated and Authenticated by: Adam Austin MD. Ordering:DOROTHY Cook MD
[2020-04-28 21:29] LABS: PTT Activated 23.2 sec (21.0-27.5); Prothrombin Time 10.4 sec (9.3-11.0)
[2020-04-28] MEDS: Normal Saline 1,000 ML 80 ML IV (22:31)
--- NOTE | 2020-04-28 23:12 | NUR.NOTE ---
Nursing Note: At 21:20, Pt brought up to Rm 225 , AO x 3. with heparin drip regulated at 15 cc/hr. Pt ambulates to bathroom independently and voided well. Denied of pain but has SOB on exertion and at rest. O2 2 L/NC applied., w/ O2 Sat of 92% at R/A. Left upper arm swollen from IV infiltration in ER., elevated on two pillows and aqua hilary applied. Admission care rendered.
[2020-04-29] VITALS (8 sets, daily range): BP systolic 111–139; BP diastolic 53–79; PULSE 79–108; RESP 17–28; TEMP 35.7–36.8; O2SAT 91–97
--- NOTE | 2020-04-29 | DI.US_ITS ---
EXAM: US EXTREMITY VENOUS BI CLINICAL HISTORY: acute PE, concern for DVT. TECHNIQUE: Bilateral lower extremity venous ultrasound performed using grayscale, color-flow, and sp ectral Doppler analysis. COMPARISON: No exams were available for comparison FINDINGS: The bilateral common femoral, femoral and popliteal veins demonstrate normal compressibility, augment ation, and color Doppler. The posterior tibial veins are patent. IMPRESSION: Right: Negative for DVT Left: Negative for DVT DATA REPOSITORY:
--- NOTE | 2020-04-29 | DI.US_ITS ---
APPROVED REPORT EXAM: Comprehensive 2D, Doppler, and color-flow Echocardiogram Patient Location: In-Patient Screed Person: Adenike Nam RDCS (AE) Indications: Acute pulmonary emboli Other Information Study Quality: Adequate Conclusion Normal left ventricular wall thickness and chamber size. Estimated ejection fraction is 60%. There are no segmental wall motion abnormalities Normal right ventricular size and systolic function Both atria are normal in size The aortic valve is trileaflet, mildly sclerotic, with trace regurgitation Normal tricuspid valve, trace regurgitation, estimated RVSP is 31 mmHg Structurally normal mitral valve with mild regurgitation Normal pulmonic valve with trace regurgitation Mildly dilated ascending aorta, 3.57 cm Wall motion Left Ventricle The left ventricle is normal size. The left ventricular systolic function is normal. The left ventric ular ejection fraction is within the normal range. There is normal left ventricular wall thickness. T here is normal LV segmental wall motion. There is no ventricular septal defect visualized. LVEF is 60 %. Right Ventricle The right ventricle is normal size. The right ventricular systolic function is normal. The RVSP is 31 .4mmHg. Atria The left atrium size is normal. The right atrium size is normal. Prominent Eustachian valve is noted in the right atrium. The interatrial septum is intact with no evidence for an atrial septal defect. Aortic Valve The aortic valve is trileaflet and mildly sclerotic There is no aortic valvular stenosis. Trace aorti c regurgitation. Mitral Valve The mitral valve is normal in structure. No evidence of mitral valve stenosis. Mild mitral regurgitat ion. Tricuspid Valve The tricuspid valve is normal in structure. There is no tricuspid valve stenosis. Trace tricuspid reg urgitation. Pulmonic Valve The pulmonary valve is normal in structure. There is no pulmonic valvular stenosis. Trace pulmonic re gurgitation. Great Vessels The aortic root is normal in size. The ascending aorta is mildly dilated. IVC is normal in size and c ollapses >50% with inspiration. Pericardium There is no pericardial effusion. 2D Dimensions IVSD d PLAX 0.92 cm F: 0.6-1.0 LV Vol A2C d MOD 68.6 mL LVPW d PLAX 0.95 cm F: 0.6 - 1.0 LV Vol A4C d MOD 92.4 mL LVID d PLAX 4.11 cm F: 3.8 - 5.2 LA vol/ BSA A2C s A-L 24.4 mL/m2 LVDs 2.75 cm F: 2.2 - 3.5 LA vol/ BSA A4C s A-L 38.4 mL/m2 Ao Root d 3.10 cm F: 2.7 - 3.3 LA Vol/ BSA Biplane s A-L 30.9 mL/m2 RA Area A4C 13.33 cm2 LA Area A4C s MOD 22.00 cm2 RA Vol/ BSA A4C s A-L 17.1 mL/m2 LA Area A2C s MOD 17.32 cm2 Ao Asc Diam d 3.57 cm F: 2.3 - 3.1 LV EF A4C MOD 56.4 % LV EF Teichholz 61.3 % LV EF A2C MOD 61.7 % LVEF (Myers's) 57.13 % F: 54 - 74 LV EF Biplane MOD 57.1 % LV Volume 62.03 mL F: 46 - 106 SV 45.61 mL LV Volume Index 34.46 mL/m2 F: 29 - 61 SV Index 25.27 mL/m2 LV Vol Biplane MOD 79.8 mL FS 32.45 % M-Mode TAPSE 2.52 cm (M/F) >1.7 LV Diastology MV E' medial 0.075 (>0.07 m/s) E/A Ratio 0.7 LV E/e MED 11.15 (<14) MV E Vmax 0.84 (0.4-1.3 m/s) MV E' lateral 0.114 (>0.1 m/s) MV A Vmax 1.15 (0.4-1.3 m/s) LV E/e LAT 7.30 (<14) MV E/A Ratio 0.70 MV E/E' medial 11.17 MV E/E' lateral 7.34 Aortic Valve LVOT Area 2.99 cm2 AoV Area Vmax 2.37 cm2 LVOT Vmax 1.21 m/s AoV Area/ BSA (Vmax) 1.31 cm2/m2 LVOT Mean Santosh. 0.81 m/s EMMANUEL Mean Santosh. 2.21 cm2 LVOT Peak Grad 5.8 mmHg EMMANUEL Mean Santosh. Index 1.23 cm2/m2 LVOT Mean Grad 3.1 mmHg LVOT VTI 0.262 m LVOT Diam s 1.95 cm AoV Vmax 1.52 m/s Velocity Ratio 0.79 AoV Mean Santosh. 1.09 m/s AoV Peak Grad 9.3 mmHg LVOT SV 78.20 mL AoV Mean Grad 5.4 mmHg AoV VTI 0.336 m AoV Area VTI 2.33 cm2 AoV Area/ BSA (VTI) 1.29 cm/m2 Mitral Valve MV DT 323 (160-240 msec) MR Vmax 4.94 m/s MV PHT 94 msec MR VTI 1.540 m MV Area PHT 2.35 cm2 MR Peak Grad 97.5 mmHg MV VTI 0.231 m MR Mean Grad 65.4 mmHg MV VTI Annulus 0.236 m MR PISA Radius 0.44 cm MV Area VTI 3.46 (4.0-6.0 cm2) MR EROA 0.08 cm2 MR Aliasing Velocity 0.35 m/s MR PISA 1.20 cm2 Pulmonary Valve PV Vmax 0.94 (0.5-1.5 m/s) RVOT Peak Gr. 1.66 mmHg PV Peak Grad 3.5 mmHg RVOT Mean Gr. 0.80 mmHg PV Mean Grad 2.1 mmHg RVOT VTI 0.139 m PV VTI 0.175 m RVOT Vmax 0.64 m/s Tricuspid Valve TR Peak Grad 28.3 mmHg TR Vmax 2.66 m/s RA Pressure 3.00 mmHg RVSP (TR) 31.4 mmHg
[2020-04-29 02:38] LABS: PTT Activated 132.2 sec (21.0-27.5)
[2020-04-29] MEDS: Levothyroxine 50 MCG TAB PO (05:33)
--- NOTE | 2020-04-29 05:36 | HPE_ITS ---
Date of service: 04/28/20 Time of Service: 19:40 Assessment and Plan Assessment and plan (1) Pulmonary emboli: Status: Chronic Assessment and plan: Multiple segmental and subsegmental emboli. Currently on heparin drip. Long-term AC / lifetime, to be decided upon. No evidence of bleeding. H/H pending. Echocardiogram ordered; no eveidence of R heart strain noted on CTA chest. Qualifiers: Pulmonary embolism type: multiple subsegmental (without acute cor pulmonale) Qualified Code(s): I26.94 - Multiple subsegmental pulmonary emboli without acute cor pulmonale (2) Anemia: Status: Acute Assessment and plan: She has undergone an extensive w/u prior to this admission, including endoscopies, CTs and capsule endoscopy. Has been receiving iron infusions and H/H has improved. Monitor closely for blood loss now that she is on AC. Fecal occult blood monitorig initiated. H/H this AM (3) Hypothyroidism: Status: Chronic Assessment and plan: Cont current replacement tx. (4) Gastroesophageal reflux disease: Status: Chronic Assessment and plan: Hiatal hernia noted on CTA chest. Cont PPI. No current complaints. (5) Essential hypertension: Status: Chronic Assessment and plan: Cont home Losartan and monitor. (6) Diabetes mellitus: Status: Chronic Assessment and plan: Recent A1c of 7.2 Not currently on any medications for tx. Diabetic diet. Glucose monitoring with sliding scale insulin correction dosing. Random glucose at admission was 243. History of Present Illness History of Present Illness Chief Complaint: Shortness of air, dyspnea on exertion Narrative: This is a 79 yo female with a h/o anemia, hypothyroidism, depression, HLD, HTN, DM. She presented to the ED with SOA/REED. She was initially scheduled for a CTA chest on the day of admission as an outpatient but establishment of an IV was not successful. She denied CP, palpitations, leg pain/swelling/redness. No F/C, cough/sputum. A CTA chest showed multiple new segmental and subsegmental acute pulmonary emboli within all lobes as described above. No CT evidence of right heart strain. Because of her h/o idiopathic anemia and concerns for a GI source, she was placed on a heparin drip with a longer term decision to be made on anticoagulation the day after admission. Review of Systems All systems reviewed & are unremarkable except as noted in HPI and below PFSH Medical History Abdominal mass (10/02/12) Abnormal mammogram 03/02/00 left breast=cyst;2001[place]right breast[place] [facility] [place], also a recent biopsy Abnormal mammography (03/02/00) Abnormal weight loss 02/14/12 Allergic rhinitis Anemia Arthritis of both knees (01/26/15) Cataract Cervical arthritis with foraminal encroachment chiro care Chronic rhinitis Colon polyp Colon polyps hyperplastic polyps Depressive disorder Depressive disorder Diabetes mellitus Diabetes mellitus (07/17/12) Diverticulosis Diverticulosis of colon without diverticulitis (09/28/11) Elevated liver function tests (08/27/13) Elevated platelet count (02/03/15) persistent and increasing referral to hemotology Colonoscopy,EGD, Bone marrow BX Essential hypertension (03/15/13) Family history of malignant neoplasm of breast Family hx-breast malignancy grandmother,aunt and mother Gastroesophageal reflux disease GERD (gastroesophageal reflux disease) GERD (gastroesophageal reflux disease) Hiatal hernia Hyperlipidemia Hyperlipidemia (10/29/12) Hypoferremia (09/03/15) Iron deficiency anemia 04/30/15; DR. CORRALES Iron deficiency anemia, unspecified Low ferritin (03/24/15) Low ferritin level (03/24/15) Low serum iron (09/03/15) Memory changes (12/15/15) MMSE 30 NSAID induced gastritis Osteopenia Osteopenia (03/02/03) normal Vitamin D level T-scores -1.8, -1.1, -0.8 Post zoster neuralgia Primary fibromyalgia syndrome Pulmonary emboli Pulmonary embolism 08/2016 Stress due to spouse with dementia (06/01/17) Stress due to spouse with dementia Thrombocytosis Thyroid cyst (03/24/15) on carotid us 2+cm cyst Surgical History Abdominal hysterectomy HAS 1 OVARY Arthroplasty of knee 08/03/15-LEFT KNEE BUNIONECTOMY 2006,2007 section Colonoscopy - IV Sedation (09/14/11) DR. JOYA-HYPERPLASTIC POLYPS; DIVERTICULOSIS EGD - IV Sedation 03/12/12 ; 02/2014 DR. CORRALES Excision, Lesion (07/20/17) right breast skin lesion - seborrrheic keratosis Extraction of cataract H/O abdominal hysterectomy H/O bilateral salpingectomy H/O cataract removal with insertion of prosthetic lens H/O section H/O esophagogastroduodenoscopy 04/03/11 Dr. Joya-2011, Dr. Corrales--02/2014 H/O knee surgery 12/11/14 repair of left medial meniscal tear History of bilateral salpingectomy History of cataract removal with insertion of prosthetic lens History of section Meniscectomy 12/11/14; [facility]; LEFT PARTIAL KNEE S/P abdominal hysterectomy one ovary remains S/P bunionectomy 2006,2007 S/P total knee replacement 08/02/15 left SALPINGECTOMY B/L Status post bunionectomy Status post total knee replacement Family History Mother , 83 Renal failure syndrome Essential hypertension Depression Heart disease Hyperlipidemia Breast cancer Father , 82 Essential hypertension Depression Heart disease Hyperlipidemia Stroke Sister Essential hypertension Depression Brother , MVA at age 21. No problems noted. Maternal Grandfather , 78 Stroke Paternal Grandfather Heart disease Maternal Grandmother , 93 Heart disease Breast cancer Paternal Grandmother No problems noted. Sister Depression Son No problems noted. Social History Smoking/Tobacco Use Status: Former Tobacco Use Tobacco: How many years used: 35 Quit status: quit date established Second Hand Exposure: Yes Smoking risk assessment performed?: Yes Alcohol Intake: current Alcohol Intake frequency: a few times a week Alcohol type: wine Counseling provided: reduce to 2 or less/day Drug use: Never Substance use type: does not use Counseling given: No Household members: spouse and none Housing: house Communication Needs: Hard of Hearing Do you need help understanding health information?: Rarely Pets and animals: No Sexually active: No Do you think of yourself as: straight/heterosexual Current gender identity: female What is your relationship status?: How often do you talk on the phone with friends or family?: three or more times per week How often do you get together with friends or relatives?: once per week How often do you attend restorationism or alevism services?: decline to answer Do you belong to any clubs or organized social groups?: yes Panel score (0-1 are the most socially isolated patients): 2 What type of physical activity do you participate in: walking Duration: 45-60 minutes/day Frequency: 5-6 times per week Corinna/Oriental Orthodox: none Special corinna needs: No Seatbelt use: always Helmet use: No Drive intox or ride w/intox coal tram driver: No Do you feel safe at home: Yes Do you feel safe in your relationship?: Yes Meds Home Medications and Allergies Home Medications Medication Instructions Recorded Confirmed Type Flonase 2 spry NS DAILY PRN spray 07/12/12 04/28/20 History Test Strip 1 strip SQ DAILY #90 strip 11/30/12 04/28/20 Clinic cholecalciferol (vitamin D3) 2,000 unit PO DAILY 07/28/16 04/28/20 History [Vitamin D3] Ez Tears 2 tab PO DAILY 06/01/17 04/28/20 History acetaminophen [Tylenol] 650 mg PO Q6H PRN PRN #30 tab 07/20/17 04/28/20 Rx albuterol sulfate 90 mcg/actuation 2 puff IH QID PRN #8.5 gm 05/29/19 04/28/20 Rx aerosol inhaler inhalational spacing device #1 each 05/29/19 04/28/20 Rx estradiol 10 mcg vaginal tablet 10 mcg VG .twice a week #24 tab 09/17/19 04/28/20 Rx omeprazole 20 mg capsule,delayed 20 mg PO DAILY #90 tab-cap 09/18/19 04/28/20 Rx release varicella-zoster glycoE [id number] 0.5 ml IM ONCE #1 ea 01/14/20 04/28/20 Rx adj(PF) 50 mcg/0.5 mL IM susp, kit levothyroxine 50 mcg tablet 50 mcg PO DAILY #90 tab 04/20/20 04/28/20 Rx losartan 50 mg tablet 50 mg PO DAILY #90 tab 04/20/20 04/28/20 Rx prednisone 20 mg tablet 20 mg PO BID #10 tab 04/26/20 04/28/20 Rx Allergies Allergy/AdvReac Type Severity Reaction Status Date / Time doxycycline Allergy PRURITIS Verified 04/13/20 11:33 Exam Const General: cooperative and no acute distress Nutritional Appearance: overweight Orientation: alert and oriented x3 HENMT Head: normocephalic and atraumatic Resp Effort & Inspection: normal respiratory effort Auscultation: clear to auscultation bilaterally Cardio Jugular venous pressure: no JVD Rate: regular rate Rhythm: regular rhythm Heart Sounds: S1 normal and S2 normal GI Palpation: soft and nontender Auscultation: normal bowel sounds Neuro General: moves all extremities and no focal motor deficits Cognition: normal cognition Speech: speech normal Extrem General: no pedal edema and no calf tenderness Psych Appearance: grossly normal Mental Status: mental status grossly normal Speech and Movement: speech and movement normal Affect: normal affect Results Labs Result diagrams: 04/29/20 05:35 04/29/20 05:35 Labs: Laboratory Results - last 24 hr 04/28/20 04/28/20 04/29/20 18:24 21:16 01:52 PT 10.4 INR 1.0 APTT 23.2 Cancelled 132.2 H* D Last Vital Signs Temp 36.4 C L 04/29/20 02:48 Pulse 95 H 04/29/20 04:09 Resp 18 04/29/20 02:48 BP 111/53 L 04/29/20 02:48 Pulse Ox 97 04/29/20 02:48 COVID-19 Screening Have you, or household traveled for leisure in last 14 days?: No Had IN PERSON contact w/suspected or confirmed C-19 person: No
[2020-04-29 07:13] LABS: Abs Immature Grans 0.03 10^3/uL (0.0-0.06); Absolute Basophil Count 0.05 10^3/uL (0.0-0.2); Absolute Eosinophil Count 0.23 10^3/uL (0.0-0.7); Absolute Lymphocyte Count 3.06 10^3/uL (1.2-3.4); Absolute Monocyte Count 0.63 10^3/uL (0.1-0.8); Absolute Neutrophil Count 4.18 10^3/uL (1.2-6.7); Basophils % 0.6; Eosinophils % 2.8; HCT 27.4 % (36.0-46.0); Immature Grans % 0.4; Lymphocytes % 37.4; MCH 22.4 pg (27.0-33.0); MCHC 29.2 % (32.0-36.0); MCV 76.8 fL (80-95); MPV 8.8 fL (8.0-11.0); Monocytes % 7.7; Neutrophils % 51.1; Nucleated RBC 0 %; Platelet Count 611 10^3/uL (130-400); RBC 3.57 10^6/uL (3.93-5.22); RDW 19.8 % (11.7-14.6); RDW-SD 51.9 fL; WBC 8.18 10^3/uL (4.4-10.8)
[2020-04-29 07:26] LABS: Anion Gap 10.7 mmol/L (3-11); BUN 18 mg/dL (7-18); CO2 23.3 mmol/L (21.0-32.0); CREATININE 0.88 mg/dL (0.55-1.02); Calcium 8.3 mg/dL (8.5-10.1); Chloride 104 mmol/L (98-107); Glucose 148 mg/dL (74-106); Potassium 3.9 mmol/L (3.5-5.1); Sodium 138 mmol/L (136-145)
[2020-04-29 07:59] LABS: Diff Comment RBC Morph Reviewed
[2020-04-29 08:00] LABS: Anisocytosis 2+; Hypochromasia 3+; Microcytosis 2+; Polychromasia Present
[2020-04-29 08:01] LABS: Poikilocytes 2+
[2020-04-29] MEDS: Losartan 50 MG TAB PO (08:04)
[2020-04-29] MEDS: Cholecalciferol (Vitamin D3) 1,000 UNIT TAB 2000 UNITS PO (08:04)
[2020-04-29 08:33] LABS: NT-proBNP 30 pg/mL (<300)
[2020-04-29 08:36] LABS: Troponin I < 0.05 ng/mL (<0.06)
[2020-04-29] MEDS: Normal Saline 1,000 ML 80 ML IV (10:58)
[2020-04-29 11:08] LABS: PTT Activated 92.6 sec (21.0-27.5)
[2020-04-29 14:42] LABS: HCT 29.6 % (36.0-46.0); HGB 8.6 g/dL (11.2-15.7)
--- NOTE | 2020-04-29 15:00 | CHAPLAIN ---
Vania had just returned from tests elsewhere when I visited. She said she'd already had a busy morning. Vania's a year and a half ago. He had dementia and Vania took care of him for several years before he went to live at [facility] for just a few months before he . Since his , she has moved out of her home and into a senior park in [place] so she has dealt with a lot of changes recently and we talked about what that's been like for her. Vania's neighbor's recently , and Vania said she thinks they will be good company for one another. I will continue to visit.
--- NOTE | 2020-04-29 15:10 | W.PM.DS.N ---
Date of service: 04/29/20 Time of Service: 15:13 DS: Diagnosis Discharge Diagnosis (1) Pulmonary emboli: Status: Acute (2) Pulmonary hypertension: Status: Acute Asessment and Plan: RVSP 31 mmHg (3) Chronic anemia: Status: Chronic Asessment and Plan: of iron deficiency (4) Hypothyroidism: Status: Chronic (5) Gastroesophageal reflux disease: Status: Chronic (6) Essential hypertension: Status: Chronic (7) Diabetes mellitus: Status: Chronic Discharge Plan Disposition Patient Disposition: HOME Condition: Stable Discharge Details Reason For Visit: BILATERAL PE Admit Date/Time: 04/28/20 20:45 Admit Provider: Marino Anders Attending Provider: Marino Anders Primary Care Provider: Roxy Mehta [facility] Hospital Course: Ms Liu is a 79 year old female with PMHx of prior PE, as well as h/o chronic iron deficiency anemia without history of GI bleeding, NIDDM2, hypothyroidism, observed on [facility] hospitalist service from 04/28/2020 until 04/29/2020 for bilateral pulmonary emboli. The patient had been experiencing shortness of breath for three weeks and, after having difficulties with obtaining a CTA of her chest as an outpatient (difficulty with placing IV), was sent to the ED. Her CTA of the chest was successfully completed there and showed bilateral pulmonary emboli, right greater than left (not saddle), without evidence of right heart strain. She was treated with heparin drip. She was monitored on telemetry without any arrhythmic events. Her troponin and NT-proBNP were negative. Her echocardiogram showed RVSP of 31 mmHg and no evidence of R heart strain. Her oxygen requirement is room air on both rest and ambulation, there there is definite increase in work of breathing on exertion. Her hemoglobin has remained stable since initiation of anticoagulation, but will need to be followed up as outpatient - a CBC is being ordered for 05/04/2020. She is medically stable for discharge home today and follow up with her PCP within 1 week. Home Meds and New Rx's Prescriptions: New Eliquis 5 mg tablet See Rx Instructions .ROUTE .COMPLEX Qty: 74 RF: 0 Continued estradiol [Yuvafem] 10 mcg tablet 10 mcg VG .twice a week Qty: 24 RF: 4 Shingrix (PF) 50 mcg/0.5 mL suspension for reconstitution 0.5 ml IM ONCE Qty: 1 RF: 1 albuterol sulfate [Ventolin HFA] 90 mcg/actuation HFA aerosol inhaler 2 puff IH QID PRN (Reason: shortness of breath or wheezing) Qty: 8.5 RF: 0 (DME) Aerochamber MV Spacer See Rx Instructions .ROUTE .MEDSUPPLY Qty: 1 RF: 0 FLONASE 16 GM SPRAY.SUSP 2 spry NS DAILY PRNRF: 4 TEST STRIP 1 EACH strip 1 strip SQ DAILY Qty: 90 RF: 12 cholecalciferol (vitamin D3) [Vitamin D3] 2,000 UNIT capsule 2,000 unit PO DAILY RF: 0 EZ Tears 2 tab PO DAILY RF: 0 omeprazole 20 mg capsule,delayed release(DR/EC) 20 mg PO DAILY Qty: 90 RF: 12 levothyroxine [Levoxyl] 50 mcg tablet 50 mcg PO DAILY Qty: 90 RF: 4 losartan 50 mg tablet 50 mg PO DAILY Qty: 90 RF: 5 acetaminophen [Tylenol] 325 MG tablet 650 mg PO Q6H PRN PRNQty: 30 RF: 0 Discontinued prednisone 20 mg tablet 20 mg PO BID Qty: 10 RF: 0 Discharge Instructions Instructions: Apixaban (By mouth), Pulmonary Embolism (DC) Additional Instructions: Take eliquis as prescribed. Return to the hospital if you notice tarry stools/blood in stool, feel weak or faint, have a fever, chest pain, or worsening shortness of breath. Follow up with your PCP in 1-2 days. Hematology referral is being sent. Bloodwork 05/04/2020 - results to Dr Mehta Stand Alone Forms: Nursing Discharge Form Referrals: HEMATOLOGY/ONC,[facility] [place] [OTHER] - (recurrent PEs) Roxy Mehta MD, [place] [Primary Care Provider] - 05/07/20 10:20 am Activity:: Activity as Tolerated Equipment/Supplies:: No Equipment Needed Diet:: As Tolerated Discharge Orders Discharge Orders: Discharge Order (Routine); Ordered 04/29/20 Ordered By: Meena Shirley Other Ambulatory Orders: Complete Blood Count w/Diff (Routine) Timeframe: [id number] Location: Determined by Patient Ordered By: Meena Shirley DS: Summary Time Spent with Patient providing and/or coordinating discharge services: Greater than 30 minutes Status at Discharge Functional status at discharge: independent ambulation Overall status at discharge: patient is progressing back to baseline Mental Status: mental status grossly normal Speech and Movement: speech and movement normal Mood: congruent mood Affect: normal affect Exam Narrative Exam Narrative: General: Very pleasant elderly female, A&Ox3, laying comfortably in bed, no dyspnea/tachypnea/cyanosis on RA HEENT: EOMI, MMM Heart: RRR Lungs: CTAB Abdomen: soft, nontender, nondistended Extremities: no edema BLE's Psych Mental Status: mental status grossly normal Speech and Movement: speech and movement normal Mood: congruent mood Affect: normal affect DS: Data Vitals/I&O Vitals and I&O: Vital Signs Temperature 35.7 C L 04/29/20 11:17 Temperature Source Tympanic 04/29/20 11:17 Pulse 79 04/29/20 11:17 Pulse Rhythm Regular 04/29/20 08:05 Pulse 91 H 04/28/20 20:50 Respiratory Rate 18 04/29/20 11:17 Respiratory Effort Non-Labored 04/29/20 08:05 Respiratory Depth Normal 04/29/20 08:05 Respiratory Pattern Normal 04/29/20 08:05 Blood Pressure 139/79 04/29/20 11:17 Blood Pressure Mean 105 04/28/20 18:35 Blood Pressure Position Supine 04/28/20 18:20 Pulse Oximetry 91 L 04/29/20 11:17 Oxygen Delivery Method Nasal Cannula 04/29/20 11:17 Oxygen Flow Rate 2 04/29/20 11:17 Pain Level 0 04/29/20 02:48 Intake & Output 04/28/20 04/29/20 04/29/20 23:59 11:59 23:59 Intake Total 1431.333 / 1671.333 240 / 1671.333 Output Total 400 / 400 500 / 1300 800 / 1300 Balance -390 / -390 931.333 / 371.333 -560 / 371.333 Weight 77.5 kg Intake: IV 1191.333 / 1191.333 0 / 1191.333 Oral 240 / 480 240 / 480 Output: Urine 400 / 400 500 / 1300 800 / 1300 Other: Urine Color Yellow Yellow Yellow Urine Appearance Clear Clear Clear Stool Size Moderate Stool Characteristics Formed Brown Voiding Methods Toilet Toilet Toilet Data Completed and Pending Completed studies during hospitalization [Text1]: CTA chest 04/29/2020: Bilateral pulmonary emboli, right greater than left. No saddle embolus or evidence right heart strain. Echo: Normal left ventricular wall thickness and chamber size. Estimated ejection fraction is 60%. There are no segmental wall motion abnormalities Normal right ventricular size and systolic function Both atria are normal in size The aortic valve is trileaflet, mildly sclerotic, with trace regurgitation Normal tricuspid valve, trace regurgitation, estimated RVSP is 31 mmHg Structurally normal mitral valve with mild regurgitation Normal pulmonic valve with trace regurgitation Mildly dilated ascending aorta, 3.57 cm Venous doppler BLE's: Right: Negative for DVT Left: Negative for DVT Pending studies at discharge: COVID-19 PCR Labs on day of discharge: Labs from last 24 hours 04/29/20 04/29/20 04/29/20 18:15 14:34 10:25 WBC RBC Hgb 8.6 L Hct 29.6 L MCV MCH MCHC RDW Plt Count MPV Immature Gran % Neutrophils % Lymphocytes % Monocytes % Eosinophils % Basophils % Nucleated RBC % Absolute Neutrophils Absolute Lymphocytes Absolute Monocytes Absolute Eosinophils Absolute Basophils RBC Morphology Polychromasia Hypochromasia Poikilocytosis Anisocytosis Microcytosis PT INR APTT Pending 92.6 H* D Sodium Potassium Chloride Carbon Dioxide Anion Gap BUN Creatinine Estimated GFR/1.73 m2 Glucose Calcium Troponin I NT-Pro-B Natriuret Pep SARS-CoV-2 (PCR) [facility] COVID-19 PCR Ref Test Perform Site 04/29/20 04/29/20 04/29/20 06:50 06:50 06:00 WBC 8.18 RBC 3.57 L Hgb 8.0 L Cancelled Hct 27.4 L Cancelled MCV 76.8 L MCH 22.4 L MCHC 29.2 L RDW 19.8 H Plt Count 611 H MPV 8.8 Immature Gran % 0.4 Neutrophils % 51.1 Lymphocytes % 37.4 Monocytes % 7.7 Eosinophils % 2.8 Basophils % 0.6 Nucleated RBC % 0 Absolute Neutrophils 4.18 Absolute Lymphocytes 3.06 Absolute Monocytes 0.63 Absolute Eosinophils 0.23 Absolute Basophils 0.05 RBC Morphology See below Polychromasia Present Hypochromasia 3+ Poikilocytosis 2+ Anisocytosis 2+ Microcytosis 2+ PT INR APTT Sodium 138 Potassium 3.9 Chloride 104 Carbon Dioxide 23.3 Anion Gap 10.7 BUN 18 D Creatinine 0.88 Estimated GFR/1.73 m2 >= 60.00 Glucose 148 H D Calcium 8.3 L Troponin I < 0.05 NT-Pro-B Natriuret Pep 30 SARS-CoV-2 (PCR) [facility] COVID-19 PCR Ref Test Perform Site 04/29/20 04/28/20 04/28/20 01:52 21:16 21:05 WBC RBC Hgb Hct MCV MCH MCHC RDW Plt Count MPV Immature Gran % Neutrophils % Lymphocytes % Monocytes % Eosinophils % Basophils % Nucleated RBC % Absolute Neutrophils Absolute Lymphocytes Absolute Monocytes Absolute Eosinophils Absolute Basophils RBC Morphology Polychromasia Hypochromasia Poikilocytosis Anisocytosis Microcytosis PT INR APTT 132.2 H* D Cancelled Sodium Potassium Chloride Carbon Dioxide Anion Gap BUN Creatinine Estimated GFR/1.73 m2 Glucose Calcium Troponin I NT-Pro-B Natriuret Pep SARS-CoV-2 (PCR) Pending [facility] COVID-19 PCR Pending Ref Test Perform Site Pending 04/28/20 18:24 WBC RBC Hgb Hct MCV MCH MCHC RDW Plt Count MPV Immature Gran % Neutrophils % Lymphocytes % Monocytes % Eosinophils % Basophils % Nucleated RBC % Absolute Neutrophils Absolute Lymphocytes Absolute Monocytes Absolute Eosinophils Absolute Basophils RBC Morphology Polychromasia Hypochromasia Poikilocytosis Anisocytosis Microcytosis PT 10.4 INR 1.0 APTT 23.2 Sodium Potassium Chloride Carbon Dioxide Anion Gap BUN Creatinine Estimated GFR/1.73 m2 Glucose Calcium Troponin I NT-Pro-B Natriuret Pep SARS-CoV-2 (PCR) [facility] COVID-19 PCR Ref Test Perform Site [facility] Medical History Abdominal mass (10/02/12) Abnormal mammogram 03/02/00 left breast=cyst;2001-right breast, per U/S at [facility] [place]-simple cysts, also a recent biopsy Abnormal mammography (03/02/00) Abnormal weight loss 02/14/12 Allergic rhinitis Anemia Arthritis of both knees (01/26/15) Cataract Cervical arthritis with foraminal encroachment chiro care Chronic rhinitis Colon polyp Colon polyps hyperplastic polyps Depressive disorder Depressive disorder Diabetes mellitus Diabetes mellitus (07/17/12) Diverticulosis Diverticulosis of colon without diverticulitis (09/28/11) Elevated liver function tests (08/27/13) Elevated platelet count (02/03/15) persistent and increasing referral to hemotology Colonoscopy,EGD, Bone marrow BX Essential hypertension (03/15/13) Family history of malignant neoplasm of breast Family hx-breast malignancy grandmother,aunt and mother Gastroesophageal reflux disease GERD (gastroesophageal reflux disease) GERD (gastroesophageal reflux disease) Hiatal hernia Hyperlipidemia Hyperlipidemia (10/29/12) Hypoferremia (09/03/15) Iron deficiency anemia 04/30/15; DR. CORRALES Iron deficiency anemia, unspecified Low ferritin (03/24/15) Low ferritin level (03/24/15) Low serum iron (09/03/15) Memory changes (12/15/15) MMSE NSAID induced gastritis Osteopenia Osteopenia (03/02/03) normal Vitamin D level T-scores -1.8, -1.1, -0.8 Post zoster neuralgia Primary fibromyalgia syndrome Pulmonary emboli Pulmonary embolism 08/2016 Stress due to spouse with dementia (06/01/17) Stress due to spouse with dementia Thrombocytosis Thyroid cyst (03/24/15) on carotid us 2+cm cyst Surgical History Abdominal hysterectomy HAS 1 OVARY Arthroplasty of knee 08/03/15-LEFT KNEE BUNIONECTOMY 2006,2007 section Colonoscopy - IV Sedation (09/14/11) DR. JOYA-HYPERPLASTIC POLYPS; DIVERTICULOSIS EGD - IV Sedation 03/12/12 ; 02/2014 DR. CORRALES Excision, Lesion (07/20/17) right breast skin lesion - seborrrheic keratosis Extraction of cataract H/O abdominal hysterectomy H/O bilateral salpingectomy H/O cataract removal with insertion of prosthetic lens H/O section H/O esophagogastroduodenoscopy 04/03/11 Dr. Joya-2011, Dr. Corrales--02/2014 H/O knee surgery 12/11/14 repair of left medial meniscal tear History of bilateral salpingectomy History of cataract removal with insertion of prosthetic lens History of section Meniscectomy 12/11/14; [facility]; LEFT PARTIAL KNEE S/P abdominal hysterectomy one ovary remains S/P bunionectomy 2006,2007 S/P total knee replacement 08/02/15 left SALPINGECTOMY B/L Status post bunionectomy Status post total knee replacement Family History Mother , 83 Renal failure syndrome Essential hypertension Depression Heart disease Hyperlipidemia Breast cancer Father , 82 Essential hypertension Depression Heart disease Hyperlipidemia Stroke Sister Essential hypertension Depression Brother , MVA at age 21. No problems noted. Maternal Grandfather , 78 Stroke Paternal Grandfather Heart disease Maternal Grandmother , 93 Heart disease Breast cancer Paternal Grandmother No problems noted. Sister Depression Son No problems noted. Social History Smoking/Tobacco Use Status: Former Tobacco Use Tobacco: How many years used: 35 Quit status: quit date established Second Hand Exposure: Yes Smoking risk assessment performed?: Yes Alcohol Intake: current Alcohol Intake frequency: a few times a week Alcohol type: wine Counseling provided: reduce to 2 or less/day Drug use: Never Substance use type: does not use Counseling given: No Household members: spouse and none Housing: house Communication Needs: Hard of Hearing Do you need help understanding health information?: Rarely Pets and animals: No Sexually active: No Do you think of yourself as: straight/heterosexual Current gender identity: female What is your relationship status?: How often do you talk on the phone with friends or family?: three or more times per week How often do you get together with friends or relatives?: once per week How often do you attend alevism or episcopal services?: decline to answer Do you belong to any clubs or organized social groups?: yes Panel score (0-1 are the most socially isolated patients): 2 What type of physical activity do you participate in: walking Duration: 45-60 minutes/day Frequency: 5-6 times per week Corinna/Methodist: none Special corinna needs: No Seatbelt use: always Helmet use: No Drive intox or ride w/intox hire car driver: No Do you feel safe at home: Yes Do you feel safe in your relationship?: Yes
[2020-04-29] MEDS: Apixaban 5 MG TAB 10 MG PO (15:51)
--- NOTE | 2020-04-29 18:23 | INITIAL_ITS ---
- If Service Date Differs Date of service: 04/29/20 Time of Service: 18:23 Care Management Initial Assess REASON FOR HOSPITALIZATION:: Bilateral PEs PAST MEDICAL HISTORY/PAST SURGICAL HISTORY:: Medical History . Abdominal mass (10/02/12). Abnormal mammogram. 03/02/00 left breast=cyst;2001-[place] [facility] [place], also a recent biopsy. Abnormal mammography (03/02/00). Abnormal weight loss. 02/14/12. Allergic rhinitis. Anemia. Arthritis of both knees (01/26/15). Cataract. Cervical arthritis. with foraminal encroachment. chiro care. Chronic rhinitis. Colon polyp. Colon polyps. hyperplastic polyps. Depressive disorder. Depressive disorder. Diabetes mellitus. Diabetes mellitus (07/17/12). Diverticulosis. Diverticulosis of colon without diverticulitis (09/28/11). Elevated liver function tests (08/27/13). Elevated platelet count (02/03/15). persistent and increasing. referral to hemotology. Colonoscopy,EGD, Bone marrow BX. Essential hypertension (03/15/13). Family history of malignant neoplasm of breast. Family hx-breast malignancy. grandmother,aunt and mother. Gastroesophageal reflux disease. GERD (gastroesophageal reflux disease). GERD (gastroesophageal reflux disease). Hiatal hernia. Hyperlipidemia. Hyperlipidemia (10/29/12). Hypoferremia (09/03/15). Iron deficiency anemia. 04/30/15; DR. CORRALES. Iron deficiency anemia, unspecified. Low ferritin (03/24/15). Low ferritin level (03/24/15). Low serum iron (09/03/15). Memory changes (12/15/15). MMSE . NSAID induced gastritis. Osteopenia. Osteopenia (03/02/03). normal Vitamin D level. T-scores -1.8, -1.1, -0.8. Post zoster neuralgia. Primary fibromyalgia syndrome. Pulmonary emboli. Pulmonary embolism. 08/2016. Stress due to spouse with dementia (06/01/17). Stress due to spouse with dementia. Thrombocytosis. Thyroid cyst (03/24/15). on carotid us. 2+cm cyst. Surgical History . Abdominal hysterectomy. HAS 1 OVARY. Arthroplasty of knee. 08/03/15-LEFT KNEE. BUNIONECTOMY. 2006,2007. section. Colonoscopy - IV Sedation (09/14/11). DR. JOYA-HYPERPLASTIC POLYPS; DIVERTICULOSIS. EGD - IV Sedation. 03/12/12 ; 02/2014 DR. CORRALES. Excision, Lesion (07/20/17). right breast skin lesion - seborrrheic keratosis. Extraction of cataract. H/O abdominal hysterectomy. H/O bilateral salpi ngectomy. H/O cataract removal with insertion of prosthetic lens. H/O section. H/O esophagogastroduodenoscopy. 04/03/11 Dr. Joya-2011, Dr. Corrales--02/2014. H/O knee surgery. 12/11/14 repair of left medial meniscal tear. History of bilateral salpingectomy. History of cataract removal with insertion of prosthetic lens. History of section. Meniscectomy. 12/11/14; [facility]; LEFT PARTIAL KNEE. S/P abdominal hysterectomy. one ovary remains. S/P bunionectomy. 2006,2007. S/P total knee replacement. 08/02/15 left. SALPINGECTOMY. B/L. Status post bunionectomy. Status post total knee replacement PREVIOUS FUNCTIONAL STATUS/SOCIAL/FAMILY SUPPORTS:: Patricia lives alone in a mobile home in [place], [place] She has been a for the past year and a half and admits it has been very difficult. Patricia has one son who lives in the [facility] and one 2 1/2 year old grandchild. Patricia describes herself as very independent and continues to drive. Patricia stated that she has wonderful neighbors and that they check in on her and bring her food and are there to support her. CURRENT FUNCTIONAL STATUS:: Patricia was sitting up in bed when CM met with her. She had not seen the provider yet so was unsure of her plan of care. Dr. Shirley had ordered Eliquis and requested that CM review with her pharmacy to ensure it would be covered. This was done and CM learne that she will only have a $20/month co-pay. ADVANCE DIRECTIVES:: On file. Son agent Has patient been provided with info about the portal/API?: Yes Did the patient sign up for the portal?: Yes (previously) CODE STATUS:: DNR/DNI INSURANCE COVERAGE / FINANCIAL ISSUES:: Medicare. CIG[employer] U IDs only CURRENT HOME/COMMUNITY SERVICES/EQUIPMENT:: none currently PRIMARY CARE PHYSICIAN:: Roxy Mehta POTENTIAL DISCHARGE NEEDS:: Follow up with PCP PATIENT/FAMILY EDUCATION NEEDS:: Discharge plan, limitations, follow up plan. Ask Me Three TRANSPORTATION:: via private vehicle with friend PLAN:: Patricia will be discharged home with no new services. She will follow up with her PCP and plan of care and transport with a friend.
[2020-04-29 20:18] LABS: COVID-19 RT-PCR UVMMC Result Negative (Negative)
== END 2020-04-29 16:40 | disposition home or self-care (01) ==
LOC: ER 20:58 → MS 21:28
PROVIDERS: Internal Medicine; Admitting Provider Family Medicine; Emergency Provider Nurse Practitioner Acute Care; PCP Family Medicine; Visit Provider Family Medicine
DX: I26.94 Multiple subsegmental thrombotic pulmonary emboli without acute cor pulmonale (principal); E03.9 Hypothyroidism, unspecified; I10 Essential (primary) hypertension; F32.9 Major depressive disorder, single episode, unspecified; E78.5 Hyperlipidemia, unspecified; E11.9 Type 2 diabetes mellitus without complications; M47.812 Spondylosis without myelopathy or radiculopathy, cervical region; K57.30 Diverticulosis of large intestine without perforation or abscess without bleeding; K21.9 Gastro-esophageal reflux disease without esophagitis; D50.9 Iron deficiency anemia, unspecified; R41.3 Other amnesia; M79.7 Fibromyalgia; D47.3 Essential (hemorrhagic) thrombocythemia; I27.20 Pulmonary hypertension, unspecified
CPT/HCPCS: 36415; 71250; 71275; 80048; 80053; 85027; 93005; 93306; 94618; 96365; 96366; 96376; 99217; 99219; 99285; U0003; 74176; 83880; 84484; 85014; 85018; 85025; 85379; 85610; 85730; 93010; 93970; G0378; J3490

== ENCOUNTER 2020-05-01 01:13 | Outpatient (CLI) | payer MEDICARE, OTHER, SELFPAY ==
[2020-05-01 12:31] LABS: Abs Immature Grans 0.02 10^3/uL (0.0-0.06); Absolute Basophil Count 0.06 10^3/uL (0.0-0.2); Absolute Eosinophil Count 0.18 10^3/uL (0.0-0.7); Absolute Monocyte Count 0.42 10^3/uL (0.1-0.8); Absolute Neutrophil Count 4.33 10^3/uL (1.2-6.7); Basophils % 0.9; Eosinophils % 2.6; HGB 9.3 g/dL (11.2-15.7); Immature Grans % 0.3; Lymphocytes % 27.5; MCH 22.9 pg (27.0-33.0); MCHC 29.1 % (32.0-36.0); MCV 78.6 fL (80-95); MPV 9.1 fL (8.0-11.0); Monocytes % 6.1; Neutrophils % 62.6; Nucleated RBC 0 %; RBC 4.07 10^6/uL (3.93-5.22); RDW 19.9 % (11.7-14.6); RDW-SD 54.7 fL; WBC 6.91 10^3/uL (4.4-10.8)
[2020-05-01 12:38] LABS: Iron 23 ug/dL (50-170)
[2020-05-01 12:43] LABS: Platelet Count 758 10^3/uL (130-400)
[2020-05-01 12:51] LABS: Ferritin 88 ng/mL (8-252)
== END 2020-05-01 01:33 ==
PROVIDERS: Internal Medicine; PCP Family Medicine; Visit Provider Family Medicine
DX: D64.9 Anemia, unspecified (principal); I26.94 Multiple subsegmental thrombotic pulmonary emboli without acute cor pulmonale
CPT/HCPCS: 36415; 82728; 83540; 85025

== ENCOUNTER 2020-05-13 12:00 | Outpatient (RCR) | payer MEDICARE, OTHER, SELFPAY ==
[2020-05-04 00:16] VITALS: BP 142/70; PULSE 106; RESP 22
[2020-05-07] MEDS: SODIUM FER. GLUC./SUC. 125 MG in Normal Saline 100 ML 110 MG IVPB (12:04)
[2020-05-07] MEDS: Normal Saline Flush 10 ML SYR IVP (12:04)
[2020-05-13] MEDS: Normal Saline Flush 10 ML SYR IVP (12:01)
[2020-05-13] MEDS: SODIUM FER. GLUC./SUC. 125 MG in Normal Saline 100 ML 110 MG IVPB (12:06)
[2020-05-13 13:32] LABS: HCT 31.8 % (36.0-46.0); HGB 9.4 g/dL (11.2-15.7); MCH 23.4 pg (27.0-33.0); MCHC 29.6 % (32.0-36.0); MCV 79.1 fL (80-95); MPV 8.5 fL (8.0-11.0); RBC 4.02 10^6/uL (3.93-5.22); RDW 21.5 % (11.7-14.6); RDW-SD 57.7 fL; WBC 9.15 10^3/uL (4.4-10.8)
[2020-05-13 13:52] LABS: Platelet Count 656 10^3/uL (130-400)
[2020-05-13 14:15] LABS: Ferritin 96 ng/mL (8-252); Vitamin B12 531 pg/mL (193-986)
[2020-05-13 14:22] LABS: Iron 338 ug/dL (50-170)
[2020-05-26 12:40] LABS: C4a Level by RIA 7198 ng/mL (0-2830)
== END 2020-05-31 23:59 | disposition home or self-care (01) ==
LOC: INF 12:00
PROVIDERS: PCP Family Medicine; Visit Provider Family Medicine
DX: D50.9 Iron deficiency anemia, unspecified (principal)
CPT/HCPCS: 36415; 85027; 96365; 82607; 82728; 83540; 86160; J2916

== ENCOUNTER 2020-05-28 03:03 | Outpatient (CLI) | payer MEDICARE, OTHER, SELFPAY ==
[2020-05-28 12:38] LABS: HCT 39.7 % (36.0-46.0); HGB 11.6 g/dL (11.2-15.7); MCH 23.8 pg (27.0-33.0); MCHC 29.2 % (32.0-36.0); MCV 81.4 fL (80-95); MPV 9.5 fL (8.0-11.0); Platelet Count 628 10^3/uL (130-400); RBC 4.88 10^6/uL (3.93-5.22); RDW 24.3 % (11.7-14.6); RDW-SD 69.1 fL
[2020-05-28 12:53] LABS: Iron 249 ug/dL (50-170)
[2020-05-28 13:06] LABS: Ferritin 83 ng/mL (8-252)
== END 2020-05-28 03:04 | disposition home or self-care (01) ==
LOC: LOS 03:03
PROVIDERS: Nurse Practitioner Family; PCP Family Medicine; Visit Provider Family Medicine
DX: D64.9 Anemia, unspecified (principal); R79.89 Other specified abnormal findings of blood chemistry
CPT/HCPCS: 36415; 85027; 82728; 83540

== ENCOUNTER 2020-06-03 03:57 | Outpatient (CLI) | payer MEDICARE, OTHER, SELFPAY ==
[2020-06-03 13:05] LABS: C-Reactive Protein 1.09 mg/dL (0.0-0.3)
[2020-06-03 21:55] LABS: Rheumatoid Factor <8.6 IU/mL (<12.0)
[2020-06-03 21:57] LABS: ESR 48 mm/hr (<or=30)
[2020-06-04 10:14] LABS: Cyclic Citrullinated Peptide <2.5 U/mL (<5.0)
[2020-06-04 10:27] LABS: Lyme Ab w Rflx to Lyme Confirm Negative (Negative)
[2020-06-04 16:05] LABS: ANA Interpretation Negative (Negative)
[2020-06-05 13:35] LABS: Phospholipid Ab, IgG <9.4 GPL; Phospholipid Ab, IgM 9.7 MPL
== END 2020-06-03 03:58 | disposition home or self-care (01) ==
LOC: LOS 03:57
PROVIDERS: PCP Family Medicine; Visit Provider Family Medicine
DX: D64.9 Anemia, unspecified (principal); R06.02 Shortness of breath; R53.83 Other fatigue; I26.94 Multiple subsegmental thrombotic pulmonary emboli without acute cor pulmonale
CPT/HCPCS: 36415; 85652; 86147; 86200; 86038; 86140; 86431; 86606; 86618

== ENCOUNTER 2020-06-22 13:34 | Outpatient (REF) | payer MEDICARE, OTHER, SELFPAY | END 2020-06-22 13:35 | disposition home or self-care (01) | LOC: LBN 13:34 | PROVIDERS: PCP Family Medicine; Visit Provider Family Medicine | DX: N76.0 Acute vaginitis (principal) | CPT/HCPCS: 87480; 87510; 87660 ==

== ENCOUNTER → 2020-07-27 10:57 | Outpatient (BNVA) | payer MEDICARE, OTHER, SELFPAY | PROVIDERS: PCP Family Medicine; Referring Provider Family Medicine; Visit Provider Student in an Organized Health Care Education/Training Program | DX: M17.11 Unilateral primary osteoarthritis, right knee (principal); M70.52 Other bursitis of knee, left knee; Z96.652 Presence of left artificial knee joint; I26.99 Other pulmonary embolism without acute cor pulmonale | CPT/HCPCS: 20610; 99213; J1040 ==

== ENCOUNTER 2020-07-30 02:04 | Outpatient (CLI) | payer MEDICARE, OTHER, SELFPAY ==
[2020-07-30 12:40] LABS: ESR 14 mm//hr (0-30)
[2020-07-30 12:57] LABS: Hemoglobin A1C 6.7 % (<5.7); Iron 133 ug/dL (50-170)
[2020-07-30 13:10] LABS: Ferritin 22 ng/mL (8-252); TSH (W/Ref FT4) 1.56 uIU/mL (0.36-3.74)
== END 2020-07-30 02:05 | disposition home or self-care (01) ==
LOC: LOS 02:04
PROVIDERS: PCP Family Medicine; Visit Provider Family Medicine
DX: D64.9 Anemia, unspecified (principal); E11.9 Type 2 diabetes mellitus without complications; R70.0 Elevated erythrocyte sedimentation rate
CPT/HCPCS: 36415; 85652; 82728; 83036; 83540; 84443

== ENCOUNTER 2020-08-03 00:55 | Outpatient (CLI) | payer MEDICARE, OTHER, SELFPAY ==
--- NOTE | 2020-08-03 07:15 | DI.NM_ITS ---
APPROVED REPORT Exam: Exercise Treadmill Patient Location: Out-Patient Room/Bed: Stress Nurse: Ainsley Erazo RN Ordering Provider:WILLEM GLORIA, Contact Number: [phone] BMI: 30.46 Baseline Rhythm: Sinus Rhythm Indications: Chest pressure, SOB, fatigue Medical History Medical History: Anemia, GERD, HLD, DM II, Arthritis bilateral knees, HTN, recent PEs, Depression, [place] PD Cardiac Medications: Losartan, Omeprazole, Eliquis, Albuterol sulfate inhaler Allergies: Doxycycline Cardiac Risk Factors: HTN, Hyperlipidemia, DM, FHX of CAD, Smoking (former), COPD Previous Cardiac Procedures: None Pretest Chest Pain Characteristics: No chest pain Exercise History: Sedentary Physical Disabilities: Knees Lung Sounds: Clear to auscultation Heart Sounds: Regular Stress Test Details Test: Exercise stress testing was performed using a modified Jonas protocol. Nuclear Acquisition: Rest Tc-99m/Stress Tc-99m 1 day Rest Isotope: Tc-99m Sestamibi. Dose: 10.5 Date: 08/03/2020 Injection Time: 1130 Stress Isotope: Tc-99m Sestamibi. Dose: 31.0 Date: 08/03/2020 Injection Time: 1300 HR Resting HR Supine: 63 bpm Max Heart Rate (APMHR): 142.986484 bpm Resting HR Standin bpm Target HR (85% APMHR): 120.025936 bpm Max HR Achieved: 125 bpm % of APMHR: 88.03 Recovery HR: 74 bpm HR response to stress: Normal HR response to stress BP Resting BP Supine: 140/92 mmHg Resting BP Standin/86 mmHg Max BP: 174/80 mmHg Recovery BP: 146/88 mmHg BP response to stress: Normal blood pressure response to stress. ECG Resting ECG: Sinus Rhythm Ectopy: None. Stress ECG: Sinus Tachycardia ST Change: No significant ST segment changes noted Arrhythmia: None Recovery ECG: Sinus Rhythm Recovery ST Change: No significant ST segment changes noted Recovery Arrhythmia: None Clinical Reason for Termination: Knee pain Stress Symptoms: Dyspnea, Knee pain Exercise duration: 6 min35 sec Highest Stage Reached: Stage 2: 2.5 mph at 12% grade. Exercise capacity: 7.05 METs Rate Pressure Product: 42202 Stress ECG Conclusion 1. Resting electrocardiogram was normal 2. Patient exercised on the modified Jonas protocol and completed a workload of 7.05 METS limited by shortness of breath and knee pain 3. Normal heart rate and blood pressure response to exercise 4. The patient achieved 88% of predicted heart rate for age 6. There was no electrocardiographic evidence of myocardial ischemia Stress Test Summary STAGE Time (mins) Speed (mph) Grade (%) HR BP SYMPTOMS METS Supine 63 140/92 Standing 74 140/86 1 3 1.7 10 104 150/84 4.6 2 6 2.5 12 122 7 1 min recovery 102 174/80 3 min recovery 82 164/82 6 min recovery 74 146/88 Modified protocol - speed and elevation held at stage 2 ( 2.5 mph and 12% grade) d/t significant righ t knee pain. MPI Conclusion Normal myocardial perfusion without evidence of ischemia or prior infarction EF 58% Radiologist Interpretation Radiologist Interpretation by: Rufus Cook MD Interpretation Date/Time: 08/03/2020 16:01:15
== END 2020-08-03 01:15 ==
PROVIDERS: PCP Family Medicine; Visit Provider Family Medicine
DX: R07.89 Other chest pain (principal); R06.02 Shortness of breath; R53.83 Other fatigue; I10 Essential (primary) hypertension; E78.5 Hyperlipidemia, unspecified; E11.9 Type 2 diabetes mellitus without complications; Z82.49 Family history of ischemic heart disease and other diseases of the circulatory system; Z87.891 Personal history of nicotine dependence; J44.9 Chronic obstructive pulmonary disease, unspecified
CPT/HCPCS: 78452; 93016; 93018; 93017

== ENCOUNTER 2020-09-22 03:02 | Outpatient (CLI) | payer MEDICARE, OTHER, SELFPAY ==
[2020-09-22 12:29] LABS: Abs Immature Grans 0.04 10^3/uL (0.0-0.06); Absolute Basophil Count 0.06 10^3/uL (0.0-0.2); Absolute Eosinophil Count 0.16 10^3/uL (0.0-0.7); Absolute Lymphocyte Count 2.39 10^3/uL (1.2-3.4); Absolute Monocyte Count 0.78 10^3/uL (0.1-0.8); Absolute Neutrophil Count 4.29 10^3/uL (1.2-6.7); Basophils % 0.8; Eosinophils % 2.1; HCT 42.6 % (36.0-46.0); HGB 13.5 g/dL (11.2-15.7); Immature Grans % 0.5; MCH 28.1 pg (27.0-33.0); MCHC 31.7 % (32.0-36.0); MCV 88.6 fL (80-95); MPV 9.7 fL (8.0-11.0); Monocytes % 10.1; Neutrophils % 55.5; Nucleated RBC 0 %; Platelet Count 443 10^3/uL (130-400); RBC 4.81 10^6/uL (3.93-5.22); RDW 16.1 % (11.7-14.6); RDW-SD 52.4 fL; WBC 7.72 10^3/uL (4.4-10.8)
[2020-09-22 13:24] LABS: Hemoglobin A1C 7.1 % (<5.7)
[2020-09-22 13:56] LABS: Iron 93 ug/dL (50-170)
[2020-09-22 14:29] LABS: ALT 24 U/L (14-59); AST 17 U/L (15-37); Albumin 3.6 g/dL (3.4-5.0); Alkaline Phosphatase 160 U/L (46-116); BUN 15 mg/dL (7-18); Bilirubin, Total 0.3 mg/dL (0.2-1.0); CREATININE 0.9 mg/dL (0.55-1.02); Calcium 9.2 mg/dL (8.5-10.1); Chloride 100 mmol/L (98-107); Ferritin 32 ng/mL (8-252); Glucose 133 mg/dL (74-106); Potassium 4.2 mmol/L (3.5-5.1); Sodium 137 mmol/L (136-145); Total Protein 7.2 g/dL (6.4-8.2)
== END 2020-09-22 03:03 | disposition home or self-care (01) ==
PROVIDERS: PCP Family Medicine; Visit Provider Family Medicine
DX: D64.9 Anemia, unspecified (principal); R53.83 Other fatigue; E11.9 Type 2 diabetes mellitus without complications
CPT/HCPCS: 36415; 80053; 82728; 83036; 83540; 85025

== ENCOUNTER 2020-11-06 10:40 | Outpatient (CLI) | payer MEDICARE, OTHER, SELFPAY ==
--- NOTE | 2020-11-06 09:00 | DI.RAD_ITS ---
Exam(s) XR KNEE RT 1V XR STANDING ALIGNMENT EXAM: XR STANDING ALIGNMENT and XR knee RT 1 V CLINICAL HISTORY: right knee pain. TECHNIQUE: 2D digital imaging was performed. COMPARISON: CR XR KNEE RT 3V AP,LAT,JAYSON from 09/18/2019 FINDINGS: The hips are well maintained. The patient has a prior left total knee replacement. In the right kne e, there is moderate narrowing of the medial femoral tibial joint space. Mild periarticular spurring is seen in both the medial and lateral femoral tibial joint spaces. There is again seen marked narr owing of the patellofemoral joint with periarticular spurring present. The ankles are well maintaine d. The right lower extremity measures 86.4 cm. The left lower extremity measures 87.1 cm. IMPRESSION: Osteoarthritis of the right knee, particularly involving the patellofemoral joint. DATA REPOSITORY: RADIATION DOSE DELIVERED:
== END 2020-11-06 10:41 | disposition home or self-care (01) ==
LOC: DIORS 10:40
PROVIDERS: PCP Family Medicine; Referring Provider Family Medicine; Visit Provider Student in an Organized Health Care Education/Training Program
DX: M17.11 Unilateral primary osteoarthritis, right knee (principal); Z96.652 Presence of left artificial knee joint; I26.99 Other pulmonary embolism without acute cor pulmonale; Z79.01 Long term (current) use of anticoagulants; M25.561 Pain in right knee
CPT/HCPCS: 99213; 73560; 77073

== ENCOUNTER 2020-12-01 09:16 | Outpatient (CLI) | payer MEDICARE, OTHER, SELFPAY ==
--- NOTE | 2020-12-01 09:15 | RT.EKG_ITS ---
APPROVED REPORT Exam: Resting ECG Reason for Exam: Baseline EKG for surgery Patient Location: O HR:75 bpm ECG Measurements Heart Rate 75 AXIS DE 158 P 49 QRSd 90 QRS 30 QT 385 T 52 QTc 432 Conclusion Sinus rhythm...normal P axis, V-rate 60- 99
== END 2020-12-01 09:17 | disposition home or self-care (01) ==
LOC: DI.CM 09:18
PROVIDERS: PCP Family Medicine; Visit Provider Family Medicine
DX: Z01.818 Encounter for other preprocedural examination (principal)
CPT/HCPCS: 93010

== ENCOUNTER 2020-12-10 02:38 | Outpatient (CLI) | payer MEDICARE, OTHER, SELFPAY ==
[2020-12-10 12:20] LABS: HGB 13.4 g/dL (11.2-15.7); MCH 29.2 pg (27.0-33.0); MCHC 31.9 % (32.0-36.0); MCV 91.5 fL (80-95); MPV 9.6 fL (8.0-11.0); Platelet Count 487 10^3/uL (130-400); RBC 4.59 10^6/uL (3.93-5.22); RDW 13.1 % (11.7-14.6); WBC 7.62 10^3/uL (4.4-10.8)
[2020-12-10 12:29] LABS: Anion Gap 9.4 mmol/L (3-11); BUN 15 mg/dL (7-18); CO2 25.6 mmol/L (21.0-32.0); CREATININE 0.9 mg/dL (0.55-1.02); Calcium 9.3 mg/dL (8.5-10.1); Chloride 103 mmol/L (98-107); Glucose 160 mg/dL (74-106); Potassium 4.4 mmol/L (3.5-5.1); Sodium 138 mmol/L (136-145)
[2020-12-10 12:46] LABS: Hemoglobin A1C 6.7 % (<5.7)
[2020-12-10 13:03] LABS: Iron 45 ug/dL (50-170)
[2020-12-10 15:04] LABS: COMMENT (LAB VIEW ONLY) 252.72 mg/dL; Microalb ug/mg Crea 8.4 ug/mg Cr
== END 2020-12-10 02:39 | disposition home or self-care (01) ==
LOC: LOS 02:38
PROVIDERS: Student in an Organized Health Care Education/Training Program; PCP Family Medicine; Visit Provider Family Medicine
DX: D64.9 Anemia, unspecified (principal); E11.9 Type 2 diabetes mellitus without complications; M17.0 Bilateral primary osteoarthritis of knee; Z01.818 Encounter for other preprocedural examination
CPT/HCPCS: 36415; 80048; 85027; 82043; 82570; 83036; 83540

== ENCOUNTER 2020-12-14 03:37 | Outpatient (CLI) | payer MEDICARE, OTHER, SELFPAY ==
[2020-12-14 12:22] LABS: Source Nasal/Nares
[2020-12-14 15:51] LABS: COVID-19 PCR Negative (Negative)
== END 2020-12-14 03:38 | disposition home or self-care (01) ==
LOC: LBO 03:38
PROVIDERS: PCP Family Medicine; Visit Provider Student in an Organized Health Care Education/Training Program
DX: Z20.822 Contact with and (suspected) exposure to COVID-19 (principal); Z01.818 Encounter for other preprocedural examination
CPT/HCPCS: 87635

== ENCOUNTER 2020-12-15 06:47 | Outpatient (RCR) | payer MEDICARE, OTHER, SELFPAY ==
[2020-12-15] MEDS: SODIUM FER. GLUC./SUC. 125 MG in Normal Saline 100 ML 110 MG IVPB (10:26)
[2020-12-15] MEDS: Normal Saline Flush 10 ML SYR IVP (13:00)
== END 2020-12-31 23:59 | disposition home or self-care (01) ==
LOC: INF 06:47
PROVIDERS: PCP Family Medicine; Visit Provider Family Medicine
DX: D50.9 Iron deficiency anemia, unspecified (principal)
CPT/HCPCS: 96365; J2916

== ENCOUNTER 2020-12-16 07:02 | Observation (INO) | payer MEDICARE, OTHER, SELFPAY ==
[2020-12-16] VITALS (24 sets, daily range): BP systolic 59–141; BP diastolic 33–85; PULSE 60–88; RESP 12–24; TEMP 35.7–36.7; O2SAT 88–99; BMI 31.6
--- NOTE | 2020-12-16 | DI.CT_ITS ---
Exam(s) CT CHEST PE CTA EXAM: CT CHEST PE CTA CLINICAL HISTORY: post-operative hypoxia, decreased A-a gradient. TECHNIQUE: Imaging Protocol: Axial CT angiography was performed with multi-slice acquisition and mu lti-planar and/or 3D reconstructions. CONTRAST MATERIAL: Intravenous: Omnipaque 350 Contrast volume:71 mL COMPARISON: CT CT CHEST PE CTA from 04/28/[address] CHEST PE CTA from 04/28/2020 FINDINGS: Tracheobronchial tree: Patent where visualized. Pulmonary parenchyma: There is dependent atelectasis and/or scarring. No architectural distortion. Pulmonary Arteries: No evidence of filling defect to suggest pulmonary emboli. Mediastinum and Yulisa: No dominant adenopathy or fluid collection. There is a large hiatal hernia. Visualized thyroid gland: Unremarkable. Pleura: No effusion or pneumothorax. Heart: The heart is not dilated. Mild coronary artery calcification. No pericardial effusion. Aorta: Thoracic aorta non-dilated. Atherosclerosis. No evidence of dissection. Upper abdomen: Unremarkable. Soft tissues: Unremarkable. Bones: Within normal limits. IMPRESSION: 1. No evidence of pulmonary embolism, thoracic aortic dissection or aneurysm. 2. Bilateral basilar atelectasis. 3. Results of this exam have been verbally communicated with Ebony Branch, certified nurse apparatus repair mechanic. RADIATION DOSE DELIVERED: 494.33mGy.cm Total DLP DATA REPOSITORY: All CT scans at this facility are submitted to the National Radiology Data Registry (NRDR) Dose Index Registry (DIR) with the [employer] (A[employer]). RADIATION OPTIMIZATION: All CT scans at this facility use at least one of these dose optimization te chniques: automated exposure control; mA and/or kV adjustment per patient size (includes targeted exa ms where dose is matched to clinical indication); or iterative reconstruction.
[2020-12-16] MEDS: Celecoxib 200 MG CAP 400 MG PO (06:38)
[2020-12-16] MEDS: Acetaminophen 500 MG TAB 1000 MG PO ×3 (06:39→21:10)
[2020-12-16] MEDS: Gabapentin 300 MG CAP PO (06:39)
--- NOTE | 2020-12-16 06:55 | ANES.PREOP_ITS ---
General Info Date of Service Date Performed: 12/16/20 Height: 5 ft 3 in Weight: 80.9 kg Body Mass Index (BMI): 31.6 Surgical Procedure: Operation Date: 12/16/20 07:40 Proposed Procedures Side Surgeon p Knee Total Arthroplasty Right Timmy Antunez MD Meds Allergies and Home Medications Allergies Allergy/AdvReac Type Severity Reaction Status Date / Time doxycycline Allergy PRURITIS Verified 12/15/20 09:43 Home Medication Medication Instructions Recorded cholecalciferol (vitamin D3) 2,000 unit PO DAILY 07/28/16 [Vitamin D3] Ez Tears 2 tab PO DAILY 06/01/17 levothyroxine 50 mcg tablet 50 mcg PO DAILY #90 tab 04/20/20 losartan 50 mg tablet 50 mg PO DAILY #90 tab 04/20/20 estradiol 10 mcg vaginal tablet 10 mcg VG .three times weekly #36 06/01/20 tab apixaban 2.5 mg tablet 2.5 mg PO BID #180 tab 09/29/20 fluticasone propionate 50 1 spray INTRANASAL DAILY 90 Days 11/16/20 mcg/actuation nasal #3 units spray,suspension chlorhexidine gluconate 4 % 1 applic TOPICAL DAILY #473 ml 12/01/20 topical liquid acetaminophen 1,000 mg PO Q8H PRN #90 tab 12/14/20 celecoxib 200 mg PO BID PRN #60 cap 12/14/20 docusate sodium [Colace] 100 mg PO BID PRN #10 cap 12/14/20 oxycodone 5 mg PO Q4H #15 tab 12/14/20 omeprazole 20 mg PO HS 12/15/20 Current Visit Medications: Current Medications Generic Name Dose Route Start Last Admin Trade Name Freq PRN Reason Stop Dose Admin Acetaminophen 1,000 mg 12/16/20 06:00 12/16/20 06:39 Acetaminophen 500 Mg Tab PO 12/16/20 16:00 1,000 mg PREOP TERRENCE Administration Celecoxib 400 mg 12/16/20 06:00 12/16/20 06:38 Celecoxib 200 Mg Cap PO 12/16/20 16:00 400 mg PREOP TERRENCE Administration Gabapentin 300 mg 12/16/20 06:00 12/16/20 06:39 Gabapentin 300 Mg Cap PO 12/16/20 16:00 300 mg PREOP TERRENCE Administration Tranexamic Acid 1,000 mg/ 60 mls @ 360 mls/hr 12/16/20 06:00 Sodium Chloride IVPB 12/16/20 16:00 PREOP TERRENCE Tranexamic Acid 1,000 mg/ 60 mls @ 360 mls/hr 12/16/20 06:00 Sodium Chloride IVPB 12/16/20 16:00 DIRECTED TERRENCE Ringer's Solution 1,000 mls @ 80 mls/hr 12/16/20 06:00 IV 01/14/21 23:59 INFUSION TERRENCE Cefazolin Sodium 2,000 mg/ 100 mls @ 200 mls/hr 12/16/20 06:00 Sodium Chloride IVPB 12/16/20 16:00 PREOP [facility] IV Miscellaneous Supplies 1 each 12/16/20 06:00 Iv Access IV 01/14/21 23:59 DIRECTED TERRENCE Sodium Chloride 0 ml 12/16/20 06:00 Normal Saline Flush 10 Ml Syr IV 01/14/21 23:59 PRN PRN Sodium Chloride 0 ml 12/16/20 06:00 Normal Saline 10 Ml Vial IJ 01/14/21 23:59 DIRECTED PRN Sterile Water 0 ml 12/16/20 06:00 Water,Injection,Sterile 10 Ml Vial IJ 01/14/21 23:59 DIRECTED PRN PFSH Active Problems Active Problems: Problem Status Onset Code Elevated erythrocyte sedimentation rate R70.0 Degenerative joint disease of right knee M17.11 Pes anserinus bursitis of left knee M70.52 Patellofemoral arthralgia of right knee M25.561 Chronic anemia D64.9 Pulmonary hypertension I27.20 Pulmonary emboli I26.99 Shortness of breath R06.02 Anemia D64.9 Fatigue R53.83 Low back pain M54.5 Right knee pain M25.561 Post-nasal drip R09.82 Sensorineural hearing loss of both ears H90.3 Chronic rhinitis J31.0 Sinus infection J32.9 Hypothyroidism E03.9 Insomnia G47.00 Seborrheic keratoses L82.1 Depression F32.9 Elevated liver function tests 08/27/13 R94.5 Family history of malignant neoplasm of breast Z80.3 Gastroesophageal reflux disease K21.9 Low ferritin level 03/24/15 R79.0 Thyroid cyst 03/24/15 E04.1 Osteopenia 03/02/03 M85.80 Memory changes 12/15/15 R41.3 Hyperlipidemia 10/29/12 E78.5 Hiatal hernia K44.9 Essential hypertension 03/15/13 I10 Diverticulosis of colon without diverticulitis 09/28/11 K57.30 Diabetes mellitus 07/17/12 E11.9 Cervical arthritis M47.812 Arthritis of both knees 01/26/15 M17.0 Thrombocytosis D47.3 Medical History Medical History Abdominal mass (10/02/12) Abnormal mammogram 03/02/00 left breast=cyst;2001[place] [facility] [place] also a recent biopsy Abnormal mammography (03/02/00) Abnormal weight loss 02/14/12 Allergic rhinitis Anemia Arthritis of both knees (01/26/15) Cataract Cervical arthritis with foraminal encroachment chiro care Chronic rhinitis Colon polyp Colon polyps hyperplastic polyps Degenerative joint disease of right knee Depo-Medrol injection: 07/27/2020 Depressive disorder Depressive disorder Diabetes mellitus Diabetes mellitus (07/17/12) Diverticulosis Diverticulosis of colon without diverticulitis (09/28/11) Elevated liver function tests (08/27/13) Elevated platelet count (02/03/15) persistent and increasing referral to hemotology Colonoscopy,EGD, Bone marrow BX Essential hypertension (03/15/13) Family history of malignant neoplasm of breast Family hx-breast malignancy grandmother,aunt and mother Gastroesophageal reflux disease GERD (gastroesophageal reflux disease) GERD (gastroesophageal reflux disease) Hiatal hernia Hyperlipidemia Hyperlipidemia (10/29/12) Hypoferremia (09/03/15) Iron deficiency anemia 04/30/15; DR. CORRALES Iron deficiency anemia, unspecified Low ferritin (03/24/15) Low ferritin level (03/24/15) Low serum iron (09/03/15) Memory changes (12/15/15) MMSE NSAID induced gastritis Osteopenia Osteopenia (03/02/03) normal Vitamin D level T-scores -1.8, -1.1, -0.8 Pes anserinus bursitis of left knee Post zoster neuralgia Primary fibromyalgia syndrome Pulmonary emboli Pulmonary embolism 08/2016 Stress due to spouse with dementia (06/01/17) Stress due to spouse with dementia Thrombocytosis Thyroid cyst (03/24/15) on carotid us 2+cm cyst Surgical History Surgical History Abdominal hysterectomy HAS 1 OVARY Arthroplasty of knee 08/03/15-LEFT KNEE BUNIONECTOMY 2006,2007 section Colonoscopy - IV Sedation (09/14/11) DR. JOYA-HYPERPLASTIC POLYPS; DIVERTICULOSIS EGD - IV Sedation 03/12/12 ; 02/2014 DR. CORRALES Excision, Lesion (07/20/17) right breast skin lesion - seborrrheic keratosis Extraction of cataract H/O abdominal hysterectomy H/O bilateral salpingectomy H/O cataract removal with insertion of prosthetic lens H/O section H/O esophagogastroduodenoscopy 04/03/11 Dr. Joya-2011, Dr. Corrales--02/2014 H/O knee surgery 12/11/14 repair of left medial meniscal tear History of bilateral salpingectomy History of cataract removal with insertion of prosthetic lens History of section Meniscectomy 12/11/14; [facility]; LEFT PARTIAL KNEE S/P abdominal hysterectomy one ovary remains S/P bunionectomy 2006,2007 S/P total knee replacement 08/02/15 left SALPINGECTOMY B/L Status post bunionectomy Status post total knee replacement Tobacco Smoking/Tobacco Use Status: Former Tobacco Use Tobacco: How many years used: 35 Passive smoking exposure: Yes Quit Status: quit date established Second hand exposure: Yes Alcohol Alcohol Intake: current Alcohol intake frequency: a few times a week Alcohol type: wine Counseling provided: reduce to 2 or less/day Substance Use Substance use: Never Substance use type: does not use Counseling given: No Vital Signs and Lab Results Vital Signs Most Recent Vital Signs in EMR: Most Recent Vital Signs Temp Pulse Resp BP Pulse Ox 36.1 C L 81 16 135/85 96 12/16/20 06:16 12/16/20 06:16 12/16/20 06:16 12/16/20 06:16 12/16/20 06:16 Lab Results Blood Type / Crossmatch: No Data to Display Complete Blood Count: White Blood Count 7.62 10^3/uL (4.4-10.8) 12/10/20 10:58 12/10/20 Red Blood Count 4.59 10^6/uL (3.93-5.22) 12/10/20 10:58 12/10/20 Hemoglobin 13.4 g/dL (11.2-15.7) 12/10/20 10:58 12/10/20 Hematocrit 42.0 % (36.0-46.0) 12/10/20 10:58 12/10/20 Platelet Count 487 10^3/uL (130-400) H 12/10/20 10:58 12/10/20 Complete Metabolic Panel: Sodium Level 138 mmol/L (136-145) 12/10/20 10:58 12/10/20 Potassium Level 4.4 mmol/L (3.5-5.1) 12/10/20 10:58 12/10/20 Chloride Level 103 mmol/L (98-107) 12/10/20 10:58 12/10/20 Carbon Dioxide Level 25.6 mmol/L (21.0-32.0) 12/10/20 10:58 12/10/20 Blood Urea Nitrogen 15 mg/dL (7-18) 12/10/20 10:58 12/10/20 Creatinine 0.9 mg/dL (0.55-1.02) 12/10/20 10:58 12/10/20 Estimated GFR/1.73 m2 >= 60.00 (mL/min/1.73m2) 12/10/20 10:58 12/10/20 Calcium Level 9.3 mg/dL (8.5-10.1) 12/10/20 10:58 12/10/20 Glucose Level 160 mg/dL (74-106) H 12/10/20 10:58 12/10/20 Hemoglobin A1c 6.7 % (<5.7) H 12/10/20 10:58 12/10/20 Liver Function Panel: No Data to Display Coagulation Panel: No Data to Display Cardiac Panel: No Data to Display Arterial Blood Gas: No Data to Display Venous Blood Gas: No Data to Display Pancreas Panel: No Data to Display Thyroid Panel: No Data to Display Infectious Disease: Coronavirus (COVID-19)(PCR) Negative (Negative) 12/14/20 10:24 12/14/20 Coronavirus 2019 Source Nasal/Nares 12/14/20 10:24 12/14/20 Blood Cultures: No Data to Display Toxicology Panel: No Data to Display Imaging and Studies Imaging and Studies EKG Summary: //: Exam: Resting ECG Reason for Exam: Baseline EKG for surgery Patient Location: O HR:75 bpm ECG Measurements Heart Rate 75 AXIS NE 158 P 49 QRSd 90 QRS 30 QT 385 T52 QTc 432 Conclusion Sinus rhythm...normal P axis, V-rate 60- 99 Stress Test Summary: 06/2020: Stress ECG Conclusion 1. Resting electrocardiogram was normal 2. Patient exercised on the modified Jonas protocol and completed a workload of 7.05 METS limited by shortness of breath and knee pain 3. Normal heart rate and blood pressure response to exercise 4. The patient achieved 88% of predicted heart rate for age 6. There was no electrocardiographic evidence of myocardial ischemia Echocardiogram Summary: 04/23/2020: Conclusion Normal left ventricular wall thickness and chamber size. Estimated ejection fraction is 60%. There are no segmental wall motion abnormalities Normal right ventricular size and systolic function Both atria are normal in size The aortic valve is trileaflet, mildly sclerotic, with trace regurgitation Normal tricuspid valve, trace regurgitation, estimated RVSP is 31 mmHg Structurally normal mitral valve with mild regurgitation Normal pulmonic valve with trace regurgitation Mildly dilated ascending aorta, 3.57 cm Carotid Artery Summary:: 02/2015: CAROTID ULTRASOUND: Mild plaque is demonstrated in the carotid bulbs and origin of the ICA bilaterally. Tortuosity of the right internal carotid artery is identified. There is what appears to represent a right thyroid lobe cyst measuring up to 2.2 cm. in diameter. SUMMARY: No evidence of significant carotid stenosis. Please see the above discussion. Anesthesia Assessment and Plan Anesthesia History Personal History: No History of Anesthesia Complications Family History: No Family History of Anesthesia Complications Exercise Tolerance Exercise Tolerance: Metabolic Equivalents>4 Pertinent Negatives Pertinent Negatives: No Symptoms of GERD, No Major Cardiovascular Symptoms or Complaints and No Major Pulmonary Symptoms or Complaints Cardiac & Pulmonary Exam Cardiac Exam: Normal S1/S2 Heart Sounds Pulmonary Exam: Clear Bilateral Breath Sounds Airway Exam Known Difficult Airway: No Mallampati Class: 2 Mouth Opening: Normal (> 3cm) Thyromental Distance: Greater than 3 cm Neck Range of Motion: Full ROM Neck Circumference: Normal Teeth Condition: Normal Dentition ASA Classification ASA Score: ASA 3 Emergency Case?: No NPO Status NPO Status: NPO Clears >2 hours, Solids >8 hours Anesthesia Plan Resuscitation Status: Full Code Anesthesia Technique: General Anesthesia Airway Planned: LMA Monitors Used: Standard Monitors
[2020-12-16] MEDS: Lactated Ringers 1,000 ML 80 ML IV ×2 (07:01→15:00)
--- NOTE | 2020-12-16 07:06 | PDOC.DSDIS_ITS ---
Discharge Plan Disposition Patient Disposition: HOME Condition: Good Discharge Details Reason For Visit: Right Knee DJD Attending Provider: Timmy Antunez Primary Care Provider: Roxy Mehta Home Meds and New Rx's Prescriptions: New celecoxib 200 mg capsule 200 mg PO BID PRN (Reason: pain) Qty: 60 RF: 1 acetaminophen 500 mg tablet 1,000 mg PO Q8H PRN (Reason: pain) Qty: 90 RF: 3 docusate sodium [Colace] 100 mg capsule 100 mg PO BID PRNQty: 10 RF: 0 oxycodone 5 mg tablet 5 mg PO Q4H Qty: 15 RF: 0 Continued chlorhexidine gluconate [Hibiclens] 4 % liquid 1 applic topical DAILY Qty: 473 RF: 0 estradiol [Yuvafem] 10 mcg tablet 10 mcg VG .three times weekly Qty: 36 RF: 4 apixaban 2.5 mg tablet 2.5 mg PO BID Qty: 180 RF: 6 cholecalciferol (vitamin D3) [Vitamin D3] 2,000 UNIT capsule 2,000 unit PO DAILY RF: 0 EZ Tears 2 tab PO DAILY RF: 0 levothyroxine [Levoxyl] 50 mcg tablet 50 mcg PO DAILY Qty: 90 RF: 4 losartan 50 mg tablet 50 mg PO DAILY Qty: 90 RF: 5 fluticasone propionate [Flonase Allergy Relief] 50 mcg/actuation spray,suspension 1 spray intranasal DAILY 90 Days Qty: 3 RF: 4 Discontinued acetaminophen [Tylenol] 325 MG tablet 650 mg PO Q6H PRN PRNQty: 30 RF: 0 No Action omeprazole 20 mg capsule,delayed release(DR/EC) 20 mg PO HS RF: 0 Discharge Instructions Additional Instructions: Total Knee Discharge Instructions Activity: The most important activity is to walk. You should try to take short walks a few times a day. It is important that when resting you work on keeping the knee straight. Avoid putting a pillow behind the knee as this will encourage flexion. Work on range of motion exercises as provided by Physical Therapy. If you have the [employer] bike coming, this will be your primary tool for exercise after the knee replacement. You should use it and follow the directions for the knee. Utilize the other exercises sparingly based on your symptoms. - Start outpatient physical therapy within 2 weeks. - You should wear the DEVANTE hose on both legs for 2 weeks. You may remove these at night. You may also use any compression sock in place of the DEVANTE hose. - Utilize [facility] [employer] [facility] to review exercises, see videos on exercises and obtain basic information pertaining to your surgery and your recovery. Dressing: Remove the Erik wrap by 2 days after your surgery and put on the DEVANTE stocking given to you from the hospital. Keep the surgical dressing (underneath the ERIK wrap) in place for at least one week. After the first week it may be removed and replaced with light gauze and tape or nothing. The wound and dressing may get wet after 3 days but avoid soaking the dressing or otherwise it will need to be changed. Many people prefer covering the dressing with cling wrap (saran wrap) to minimize it from getting soaked. If it gets wet, just pat dry. If it starts to peel off then it will need to be changed. Medications: - You should take Tylenol and anti-inflammatory Celebrex as your primary pain control medications. If the Celebrex is too expensive or not covered, please call the office for another alternative (Advil/Ibuprofen or Naproxen/Aleve) - You have been prescribed a stronger pain medication Oxycodone for breakthrough pain, take as needed as prescribed. - You will continue your stomach acid reduction agent, Omeprazole to help reduce stomach acid and reflux. - You will be taking your home dose of Eliquis (Apixaban) 2.5mg BID for DVT prevention. You may start this at bedtime today. - If you have constipation you should take Colace or Miralax (both over-the-c ounter). It takes most people 3-4 days to have a bowel movement. Follow-up: 2 weeks If you have any acute concerns or questions, please do not hesitate to contact the office at [phone]. You may contact Dr. Antunez with any questions after hours through the hospital at [phone] or on his cell phone at [phone]. Remember the [employer] website has very helpful information about your surgery and your recovery and many questions can be answered there too. Referrals: Timmy Atnunez MD [ [facility] STAFF PHYSICIAN] - Equipment/Supplies: Walker Activity:: Activity as Tolerated Remove Dressings/Wound Care:: Do Not Remove Shower/Bathe:: Cover Diet:: As Tolerated DS: Diagnosis Discharge Diagnosis (1) Degenerative joint disease of right knee: Status: Acute
[2020-12-16] MEDS: ceFAZolin 2,000 MG in Normal Saline 100 ML 200 MG IVPB (07:28)
[2020-12-16] MEDS: Bupivacaine 0.25% Pres-Free 30 ML VIAL (07:56)
[2020-12-16] MEDS: Ketorolac 30 MG/ML VIAL (07:59)
[2020-12-16] MEDS: Normal Saline 20 ML VIAL (08:00)
--- NOTE | 2020-12-16 08:05 | W.ANESNERVE ---
Nerve Block Single Injection Procedure Date and Time Date Performed: 12/16/20 Procedure Start: 07:20 Location Where Procedure Performed Procedure Location: PACU Reason Performed: Postoperative Analgesia Requesting Provider: Harmony Timeout Performed Timeout Performed: Yes Monitoring Used ECG, Blood Pressure and SpO2 Sterility Sterility: Hand Hygiene, Surgical Mask, Sterile Gloves, Eye Protection and Chlorhexidine Sedation Given During Procedure Sedation Given (Indicate Dose Given): Versed IV Dose:: 2mg and Precedex IV Dose:: 8mcg Patient Mental Status Patient Mental Status: Sedate with meaningful communication Nerve Block 1st Nerve Block: Laterality: Right Block Type: Adductor Canal Needle / Catheter Used: 80mm SonoPlex II Local Anesthetic Bolus (Indicate Dose Given): Lidocaine used for local infiltration of skin, Injected in 3-5ml increments after negative blood aspiration and Bupivacaine 0.25% Dose:: 15mL Additives (Indicate Dose Given): None Ultrasound: Sterile probe cover and gel used Ultrasound Image Saved?: Yes Nerve Stimulator: Not Used Paresthesia: None Procedure Tolerated: No Complications Procedure Outcome: Successful Performed By: Ebony Branch
[2020-12-16 09:47] LABS: BE 0 mmol/L (-2-3); HCO3 26 mmol/L (22-26); pCO2 47 mmHg (35-45); pH 7.34 (7.35-7.45); pO2 81 mmHg (80-105); sO2 96 % (95-98); tCO2 24 mmol/L (23-27)
[2020-12-16 09:56] LABS: FIO2L 8 L; Site Left Radial
[2020-12-16 09:57] LABS: FIO2 Unknown/Not Given %
--- NOTE | 2020-12-16 10:20 | ROE_ITS ---
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 Depuy Attune Cruciate Retaining Femoral Component, Size 5 2. Depuy Attune Rotating Platform Tibial Component, Size 3 3. Depuy Attune 5x7mm CR,RP Poly 4. Depuy Attune Patellar Component, Size 35 Indications: I have seen Patricia in clinic for symptoms of knee arthritis, confirmed with radiographic findings. She has exhausted nonoperative methods and was having significant limitations in daily function and desired better function and less pain. I discussed the technical details of a knee replacement. I explained the risks of the procedure to include, but not limited to, bleeding, infection, pain, stiffness, fracture, damage to nerves and vessels, damage to muscles and tendons, loosening, need for repeat procedure, blood clot and cardiopulmonary demise. Despite these risks, Patricia elected to proceed. Findings: There was significant signs of arthritis throughout the knee, involving all 3 compartments, with exposed bone medially. Procedure Description: Patricia was greeted in the preoperative holding area where the correct side was identified and marked. The consent was reviewed with the patient and signed. The history and physical was updated. All questions were answered. Preoperative mediacations were administered: Acetaminophen 1000mg, Celebrex 400mg, and Gabapentin 300mg. An adductor canal block was then administered by the anesthesia team in the PACU. Patricia was taken back to the operating room. A spinal anesthestic was then administered. The patient was placed into the supine position on the operating room table. A nonsterile tourniquet was placed high onto the leg but only used for cementing. Posts were placed for positioning during the procedure. All bony prominences were well padded. Prophylactic antibiotics in the form of Cefazolin were administered. 1g of Tranxemic Acid was given intravenously within 30 minutes of incision. The right leg was then prepped with Chloraprep and draped in a standard fashion with impervious stockinette and extremity drape. A second prep with Chloraprep was performed prior to placing Ioband. A timeout to confirm correct identity, side and site, procedure, allergies, anesthesia, and medical concerns was performed. With the knee in some flexion, a midline incision was made overlying the knee. Full thickness skin flaps were raised once the extensor mechanism was encountered. These were raised medially and laterally. Any bleeding was controlled with electrocautery. Once the extensor mechanism was fully exposed, a medial parapatellar arthrotomy was performed in a flexed position. All bleeding from the arthrotomy and the geniculate arteries was coagulated. A medial subperiosteal peel was performed with electrocautery to the midcoronal plane. The fat pad was removed while keeping the patellar tendon protected. The anterior distal femur synovium was removed for later visualization. The ACL and PCL were resected and the anterior horn of the lateral meniscus was transected. The knee was then flexed with the patella everted. Time was spent to cauterize any bleeding but there was a persistent ooze with notable hypertension initially leading to some early blood loss. Using a step drill, and based on preoperative templating, the femoral canal was entered. This was done with a step drill without any difficulty. The intramedullary distal femoral cut guide was inserted, set to a 5 degree valgus cut and 9mm cut thickness. The distal femoral cut guide was then held in position and pinned. With the soft tissues protected, the distal cut was performed. This was passed over a few times to ensure a planar cut. I then turned attention to the tibia. The extramedullary guide was placed onto the leg. The distal aspect was slid medial to adjust for position of center of ankle and stay in line with shaft of the tibia. Approximately 3-5 degrees of posterior slope was kept in the proximal cutting guide. The center of the guide was aligned with the PCL. The stylus was used to assess cut thickness. The medial side, most involved side, was set for a 4mm cut. This was then held in position and pinned into place with 2 additional pins and a cross pin for stability. The medial and lateral collateral ligaments were protected and the cut was performed. With this completed, it was assessed and noted to be of appropriate dimensions. The guide was removed. A spacer block was inserted and the knee was brought into extension. The 6mm spacer block provided full extension, without hyperextension and with stability of both the medial and lateral collateral ligaments was assessed. The pins from the femur and the tibia were then removed. The distal femur was then sized. The anterior stylus was placed onto the lateral ridge of the anterior femur. This indicated a size 5 femur. The external rotation of the guide was adjusted to 5 degrees to match the epicondylar axis, perpendicular to Zion?s line. The 4-in-1 cutting guide was the placed. The posterior medial femur cut was evaluated and appeared of good thickness. The spacer block was inserted underneath the cutting guide and stability was confirmed in 90 degrees of flexion. An daryl wing was used to confirm appropriate position of the anterior cut to avoid notching. This cutting guide was ensured to be flush on the cut surface and then pinned into place with headed pins. While protecting the soft tissues, quad tendon, and collateral ligaments, the anterior and posterior cuts were performed with a saw. The central two pins were removed and the posterior and anterior chamfers were cut next. The notch-cutting guide was placed. This was pinned to lateralize the femoral component as much as possible while keeping it flush on the cut surface. This was then pinned into position. A reciprocating saw was used to make the small notch cut. A trial CR femoral component was then inserted, impacted down to the cut surfaces, and the lug holes were drilled. A provisional trial tibial compo nent was placed and the knee was brought through range of motion. The polyethylene was trialed until there was good flexion and extension with excellent stability to the medial and lateral collaterals. The patella was tracking without thumbs. The tibial cut surface was fully exposed. The medial and lateral menisci were removed. The tibia was then sized as a 3. The tibia had been previously marked during trialing to correspond to the center of the tibial component to help with rotation. The trial was aligned to this cristhian, approximately rotated to the medial 1/3rd of the tibial tubercle. The trial was pinned into place. The tibia was prepared with a reamer and a keel punch. The knee was then brought into extension and the patella was measured as 22mm. Using the patellar clamp and cut guide, this was resected to a flat surface with at least 13mm of thickness remaining. The size 35 patella fit the best. This was oriented and then clamped into position. The lugs were drilled. The trial components were removed. The final components, except for the polyethylene were opened on the back table. The periosteal and capsular tissues, especially posteriorly, around the knee were then systematically injected with a periarticular cocktail consisting of 50cc 0.25% Marcaine, 30mg Ketorolac, 20cc of Exparal and 50cc of injectable saline. The tourniquet was then inflated to 275mmHg. The knee was thoroughly irrigated with a pulse lavage and dried. On the back table, with the implants opened, the cement was mixed. 2 batches of medium viscosity cement were prepared with vacuum assistance. After the cement was ready it was placed on to the back side of the tibial component. A small amount was placed onto the posterior flange of the femur. Cement was manual pressurized and impregnated into the cut surface of the tibia. The tibial component was then inserted into the cut surface and impacted into position. Excess cement was removed and the component was reimpacted. Again, excess cement was removed and our attention was then turned to the femur. The femoral cut surface was once again dried and cement was manually impacted into the cut surface. The femoral component was lined with the lug holes and impacted. Excess cement was removed. It was ensured to be down against the cut surface. The trial polyethylene was then inserted and the leg was brought out into full extension for the duration of the cement curing process, approximately 18min. Cement was lastly manually impacted into the cut surface of the patella and the patellar button was clamped into position and held. At this time, I was made aware by Ebony Branch CRNA that Patricia had become hypotensive and mildly hypoxic. She was responding but less so than she had and had a definitive drop to where she was just prior to cementing. She was stable but there was concern about a cement syndrome or other embolic type process. While the knee was held in extension, attention was turned to the gutters of the knee and for all interfaces for any excess cement. While the cement was hardening, the knee was irrigated with Irrisept chlorhexadine solution. It was allowed to sit in the knee for 3 minutes. After the cement had finally cured, approximately 18min, the clamp was removed from the patella and the knee was taken through range of motion. A size 7mm polyethylene component provided the best range of motion and stability with less than 2mm gapping with medial and lateral stress and full extension without significant hyperextension. The patella was tracking with a no-thumbs technique. The trial poly was removed and once again the knee was checked for any loose, excess, or errant cement. The poly component was then inserted into position after cleaning and drying the tibial tray. The capsule was then reapproximated with a No. 1 Vicryl at multiple locations. The capsule was finally closed with a No. 2 Stratafix, barbed suture. The tourniquet was then released and the arthrotomy appeared watertight without significant bleeding. The second dosing of 1g TXA was started. Deep tissues were then reapproximated with 0 Vicryl and 2-0 Vicryl. The skin was closed with a running 3-0 Monocryl in a subcuticular fashion. This was reinforced with skin glue. A Mepilex silver dressing was applied along with a [id number] MARY wrap. A CryoCuff was applied. Patricia was transferred to the hospital stretcher without difficulty. She was still requiring 8L of Oxygen and slightly hypotensive. She was responsive and had palpable pulses but was taken to the PACU for closer observation, anticipating potential ABG to assess oxygenation as well as CT PE if hypoxia persists with history. Patricia has a good prognosis. 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 We will continue to watch closely and likely admit for further observation. Physical therapy will start today and without restrictions, weight-bearing as tolerated. She will return to using Eliquis for DVT prophylaxis.
[2020-12-16] MEDS: Omnipaque 350 MG/ML 100 ML BTL 71 ML IJ (10:34)
--- NOTE | 2020-12-16 11:02 | PDOC.ANES ---
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 Complication addressed and surgeon aware. Surgery was completed without incident and patient brought to the PACU. See PACU documentation for vital signs and documented interventions. ABG was obtained and correlated with clinical picture of ongoing oxygen requirement and tachypnea. Given history of PE, decision was made to rule out PE. Study was obtained, negative for PE. Patient's son, Santos, was updated on the findings. Patient is doing well in PACU and comfortable, plan to proceed with TKA recovery.
[2020-12-16] MEDS: oxyCODONE 5 MG TAB PO (11:53)
--- NOTE | 2020-12-16 12:55 | IN_ITS ---
Date of service: 12/16/20 Time of Service: 12:55 PT Notes Visit Reasons: Right Knee DJD Physical Therapy Day Surgery Initial Evaluation Date: 12/16/2020 Referring Doctor: Harmony PT Orders: PT CONSULT: Status post Ortho surgery Precautions: WBAT on right LE with AD. Patient Profile/Admitting Diagnosis: Vania is a 79-year-old female with degenerative joint disease of the right knee and is status post right total knee arthroplasty on postoperative day 0. PMHX: Medical History (Updated 07/27/20 @ 16:10 by Roxy Mehta MD, [place]) Abdominal mass (10/02/12) Abnormal mammogram 03/02/00 left breast=cyst;2001-right breast, per [place] [facility] [place], also a recent biopsy Abnormal mammography (03/02/00) Abnormal weight loss 02/14/12 Allergic rhinitis Anemia Arthritis of both knees (01/26/15) Cataract Cervical arthritis with foraminal encroachment chiro care Chronic rhinitis Colon polyps hyperplastic polyps Degenerative joint disease of right knee Depo-Medrol injection: 07/27/2020 Depressive disorder Diabetes mellitus (07/17/12) Diverticulosis Diverticulosis of colon without diverticulitis (09/28/11) Elevated liver function tests (08/27/13) Elevated platelet count (02/03/15) persistent and increasing referral to hemotology Colonoscopy,EGD, Bone marrow BX Essential hypertension (03/15/13) Family hx-breast malignancy grandmother,aunt and mother Gastroesophageal reflux disease GERD (gastroesophageal reflux disease) Hiatal hernia Hyperlipidemia (10/29/12) Hypoferremia (09/03/15) Iron deficiency anemia 04/30/15; DR. CORRALES Iron deficiency anemia, unspecified Low ferritin level (03/24/15) Low serum iron (09/03/15) Memory changes (12/15/15) MMSE NSAID induced gastritis Osteopenia (03/02/03) normal Vitamin D level T-scores -1.8, -1.1, -0.8 Pes anserinus bursitis of left knee Post zoster neuralgia Primary fibromyalgia syndrome Pulmonary embolism5 08/2016 Stress due to spouse with dementia (06/01/17) Thrombocytosis Thyroid cyst (03/24/15) on carotid us 2+cm cyst Surgical History Abdominal hysterectomy HAS 1 OVARY Arthroplasty of knee 08/03/15-LEFT KNEE BUNIONECTOMY 2006,2007 section Colonoscopy - IV Sedation (09/14/11) DR. JOYA-HYPERPLASTIC POLYPS; DIVERTICULOSIS EGD - IV Sedation 03/12/12 ; 02/2014 DR. CORRALES Excision, Lesion (07/20/17) right breast skin lesion - seborrrheic keratosis Extraction of cataract H/O abdominal hysterectomy H/O bilateral salpingectomy H/O cataract removal with insertion of prosthetic lens H/O section H/O esophagogastroduodenoscopy 04/03/11 Dr. Joya-2011, Dr. Corrales--02/2014 H/O knee surgery 12/11/14 repair of left medial meniscal tear History of bilateral salpingectomy History of cataract removal with insertion of prosthetic lens History of section Meniscectomy 12/11/14; [facility]; LEFT PARTIAL KNEE S/P abdominal hysterectomy one ovary remains S/P bunionectomy 2006,2007 S/P total knee replacement 08/02/15 left SALPINGECTOMY B/L Status post bunionectomy Status post total knee replacement Social History/Home Situation: Lives alone in a trailer with 3 steps to enter. Son will be checking in on her as she recovers at home. Equipment Owned/DME: None Subjective: Patient reports being tired and weak but is agreeable to PT consult. Complained of a whirling sensation of right after standing up from edge of bed and was momentarily unable to respond. PT immediately guided patient back onto bed for safety. Nurse Bernadine on the other side of patient assisting. Deferred any further out-of bed activities due to safety concerns. Objective: General Observation: Supine in SDC stretcher. MARY wraps on R LE. Cryocuff on R LE. IV access in R UE. Mental Status: Alert and oriented x 4 Pain: Reported 3-4/10 pain in the R knee during straight leg raise ROM: Right Lower Extremity: Hip flexion WFL. Hip abduction WFL. Knee flexion about 20 degrees to 90 degrees with empty end feel. Knee extension -20 degrees. Ankle dorsiflexion WFL. Ankle plantarflexion WFL. Left Lower Extremity: Hip flexion WFL. Hip abduction WFL. Knee flexion WFL. Ankle dorsiflexion WFL. Ankle plantarflexion WFL. Strength: Right Lower Extremity: Hip flexors 5/5. Hip abductors 5/5. Knee flexors 5/5. Knee extensors 3-/5. Ankle dorsiflexors 3-/5. Ankle plantarflexors 5/5. Left Lower Extremity:Hip flexors 5/5. Hip abductors 5/5. Knee flexors 5/5. Knee extensors 5/5. Ankle dorsiflexors 5/5. Ankle plantarflexors 5/5. Sensation: Denies numbness and tingling in B LE Bed Mobility/Transfers: Supine to sit contact-guard assist Sit to stand contact-guard assist Stand to sit minimal assist Gait: Deferred due to safety concerns Balance: Static Sitting: Normal Dynamic Sitting: Good Static Standing: Fair Dynamic Standing: Fair Special Tests: Mobility Limitations Standardized Measure [facility] AM-PAC 6 clicks Basic Mobility Inpatient Short Form: Raw Score: 17 CMS Score: 50% deficit Informed Consent/Education: Patient instructed in purpose of PT consult. Assessment: Deferred further mobility assessment due to safety concerns. Nurse Bernadine indicated at start of eval that orthopod explained to her that patient may have postoperative bone cement implantation syndrome which may complicate patient's recovery. Both patient and Nurse agreed to be seen after a half hour to an hour to allow her to stabilize a bit more. Later on during attemtp at finishing up evaluation, Dr. Antunez decided that pateint will be admitted to med surg unit for further monitoring. Will plan to re-evalaute patient under medical surgical status as ordered. Patient presents with clinical signs and symptoms consistent with current/admitting diagnoses that have resulted to mobility limitations, gait instability, generalized weakness, and impairment of motor control as demonstrated by the following impairment level findings: 1. Decreased strength to R knee major muscle groups 2. Impaired standing balance 3. Limitation of joint range of motion in R knee 4. 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 Inability to safely ambulate due to safety concersn by PT provider at this time 2. Increase completion time for mobility ADL performance 3. Increased fall risk Patient is assessed as a 99033 moderate complexity based on the following: History: 79-year-old female with impairment level findings, functional limitations, and past medical history as indicated above Examination: Demonstrable impairment in strength, balance, and mobility level with underlying impairments and functional limitations as documented above Presentation: Evolving Decision Makin moderate complexity Goals: N/A. PT evaluation only and one treatment session only. Plan of Care/Treatment Plan: N/A. PT evaluation only and one treatment session only. DISCHARGE RECOMMENDATIONS: PT re-evalaution under acute care in the medical surgical unit per orthopod order. TREATMENT CODE/TIME: 59117 x 20 minutes, 05911 x 9 minutes beginning at 12:55 PM. Thank you for the opportunity to participate in the care of this patient. Anne Gar PT, DPT, CLT [facility] [place], [place]
--- NOTE | 2020-12-16 14:18 | W.ANESPOSTOP ---
Postoperative Evaluation Date, Time and Location Date Performed: 12/16/20 Time Performed: 14:18 Patient Location: PACU Vital Signs Most Recent Imported Vital Signs: Most Recent Vital Signs Temp Pulse Resp BP Pulse Ox 36.3 C L 83 18 120/62 96 12/16/20 13:20 12/16/20 13:20 12/16/20 13:20 12/16/20 13:20 12/16/20 13:20 Pain Score Most Recent Pain Score: Most Recent Pain Score Pain Level 0 12/16/20 13:20 Assessment Mental Status: Awake (Alert & Oriented to Patient Baseline) Airway and Respiratory Function: Abnormal Respiratory exam (See explanation) (Plan to keep patient as observation overnight to monitor oxygenation 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
[2020-12-16] MEDS: Normal Saline Flush 10 ML SYR IV ×4 (14:29→21:09)
[2020-12-16] MEDS: Ketorolac 15 MG/ML VIAL IVP ×2 (14:50→21:10)
--- NOTE | 2020-12-16 15:42 | PT.INIE ---
Date of service: 12/16/20 Time of Service: 15:42 PT Notes Visit Reasons: Right Knee DJD Physical Therapy Inpatient Initial Evaluation Date: 12/16/2020 Referring Doctor: Timmy Antunez MD PT Orders: PT CONSULT: Status post Ortho surgery Precautions: WBAT on right LE with AD. Patient Profile/Admitting Diagnosis: Vania is a 79-year-old female with degenerative joint disease of the right knee and is status post right total knee arthroplasty on postoperative day 0. Patient was admitted by orthopod for observation in the medical surgical unit due to postoperative bone cement implantation syndrome. PMHX: Medical History (Updated 07/27/20 @ 16:10 by Roxy Mehta MD, [place]) Abdominal mass (10/02/12) Abnormal mammogram 03/02/00 left breast=cyst;2001-right breast, per U/S at [facility] [place]-simple cysts, also a recent biopsy Abnormal mammography (03/02/00) Abnormal weight loss 02/14/12 Allergic rhinitis Anemia Arthritis of both knees (01/26/15) Cataract Cervical arthritis with foraminal encroachment chiro care Chronic rhinitis Colon polyps hyperplastic polyps Degenerative joint disease of right knee Depo-Medrol injection: 07/27/2020 Depressive disorder Diabetes mellitus (07/17/12) Diverticulosis Diverticulosis of colon without diverticulitis (09/28/11) Elevated liver function tests (08/27/13) Elevated platelet count (02/03/15) persistent and increasing referral to hemotology Colonoscopy,EGD, Bone marrow BX Essential hypertension (03/15/13) Family hx-breast malignancy grandmother,aunt and mother Gastroesophageal reflux disease GERD (gastroesophageal reflux disease) Hiatal hernia Hyperlipidemia (10/29/12) Hypoferremia (09/03/15) Iron deficiency anemia 04/30/15; DR. CORRALES Iron deficiency anemia, unspecified Low ferritin level (03/24/15) Low serum iron (09/03/15) Memory changes (12/15/15) MMSE NSAID induced gastritis Osteopenia (03/02/03) normal Vitamin D level T-scores -1.8, -1.1, -0.8 Pes anserinus bursitis of left knee Post zoster neuralgia Primary fibromyalgia syndrome Pulmonary embolism5 08/2016 Stress due to spouse with dementia (06/01/17) Thrombocytosis Thyroid cyst (03/24/15) on carotid us 2+cm cyst Surgical History Abdominal hysterectomy HAS 1 OVARY Arthroplasty of knee 08/03/15-LEFT KNEE BUNIONECTOMY 2006,2007 section Colonoscopy - IV Sedation (09/14/11) DR. JOYA-HYPERPLASTIC POLYPS; DIVERTICULOSIS EGD - IV Sedation 03/12/12 ; 02/2014 DR. CORRALES Excision, Lesion (07/20/17) right breast skin lesion - seborrrheic keratosis Extraction of cataract H/O abdominal hysterectomy H/O bilateral salpingectomy H/O cataract removal with insertion of prosthetic lens H/O section H/O esophagogastroduodenoscopy 04/03/11 Dr. Joya-2011, Dr. Corrales--02/2014 H/O knee surgery 12/11/14 repair of left medial meniscal tear History of bilateral salpingectomy History of cataract removal with insertion of prosthetic lens History of section Meniscectomy 12/11/14; [facility]; LEFT PARTIAL KNEE S/P abdominal hysterectomy one ovary remains S/P bunionectomy 2006,2007 S/P total knee replacement 08/02/15 left SALPINGECTOMY B/L Status post bunionectomy Status post total knee replacement Social History/Home Situation: Lives alone in a trailer with 3 steps to enter. Son will be checking in on her as she recovers at home. Equipment Owned/DME: None Subjective: Patient reports feeling a lot better this time. Denies any whirling sensation, chest pain, and headache throughout session. Reports 3-4/10 pain in the R knee. Feels secure that she stayed at the hospital for further monitoring. Did report having mild difficulty breathing after short distance level surface ambulation with PT this afternoon. Nurse Roxanne made aware. Objective: General Observation: Supine in bed. MARY wraps on R LE. Cryocuff on R LE. IV access in R UE. Mental Status: Alert and oriented x 4 Pain: Reported 3-4/10 pain in the R knee during straight leg raise ROM: Right Lower Extremity: Hip flexion WFL. Hip abduction WFL. Knee flexion about 20 degrees to 90 degrees with empty end feel. Knee extension -20 degrees. Ankle dorsiflexion WFL. Ankle plantarflexion WFL. Left Lower Extremity: Hip flexion WFL. Hip abduction WFL. Knee flexion WFL. Ankle dorsiflexion WFL. Ankle plantarflexion WFL. Strength: Right Lower Extremity: Hip flexors 5/5. Hip abductors 5/5. Knee flexors 5/5. Knee extensors 3-/5. Ankle dorsiflexors 3-/5. Ankle plantarflexors 5/5. Left Lower Extremity:Hip flexors 5/5. Hip abductors 5/5. Knee flexors 5/5. Knee extensors 5/5. Ankle dorsiflexors 5/5. Ankle plantarflexors 5/5. Sensation: Denies numbness and tingling in B LE Bed Mobility/Transfers: Supine to sit contact-guard assist Sit to stand contact-guard assist Stand to sit minimal assist Gait: Instructed patient on level surface ambulation of about 40 feet using a front wheeled walker with contact-guard assist using step to gait pattern. Lauren decreased. No L OB seen. Patient did report some mild goatee in breathing which nurse Roxanne was made aware of. Vital signs were right away taken by nurse Oliveira with blood pressure of 120/60 mmHg, oxygen saturation of 96% on room air, and heart rate of 78 bpm. Patient was then assisted back in supine. Balance: Static Sitting: Normal Dynamic Sitting: Good Static Standing: Fair Dynamic Standing: Fair Special Tests: Mobility Limitations Standardized Measure [facility] AM-PAC 6 clicks Basic Mobility Inpatient Short Form: Raw Score: 17 CMS Score: 50% deficit Informed Consent/Education: Patient instructed in purpose of PT consult. Assessment: Vania is a 79-year-old female with degenerative joint disease of the right knee and is status post right total knee arthroplasty on postoperative day 0. Patient was admitted by orthopod for observation in the medical surgical unit due to postoperative bone cement implantation syndrome. Dyspnea during short distance ambulation. Patient presents with clinical signs and symptoms consistent with current/admitting diagnoses that have resulted to mobility limitations, gait instability, generalized weakness, and impairment of motor control as demonstrated by the following impairment level findings: 1. Decreased strength to R knee major muscle groups 2. Impaired standing balance 3. Limitation of joint range of motion in R knee 4. 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 Inability to safely ambulate due to safety concersn by PT provider at this time 2. Increase completion time for mobility ADL performance 3. Increased fall risk Patient is assessed as a 94318 moderate complexity based on the following: History: 79-year-old female with impairment level findings, functional limitations, and past medical history as indicated above Examination: Demonstrable impairment in strength, balance, and mobility level with underlying impairments and functional limitations as documented above Presentation: Evolving Decision Makin moderate complexity Goals: Goals X1 week 1. Supine-Sit independent 2. Sit-Supine independent 3. Sit-Stand independent 4. Stand-Sit independent 5. Bed-Chair independent 6. Chair-Bed independent 7. Independent gait on level surface with use of front-wheeled walker for at least 300 feet without report of pain nor dyspnea 8. Independent stair negotiation while holding onto 1 rail for at least 3 steps without report of pain nor dyspnea 9. Independent with home exercise program 10. Good static and dynamic standing balance/tolerance Plan of Care/Treatment Plan: 1-2x/day, 7 days/week x 1 week. Plan of care has been reviewed with the [facility] providing the service under Physical Therapy direction. Initiate Physical Therapy intervention for pain management as needed, strengthening, bed mobility, transfers, gait, stairs, balance training, and use of assistive device. DISCHARGE RECOMMENDATIONS: Home when medically cleared by orthopedic surgery. Outpatient PT services to facilitate return to independent community ambulation without an assistive device. TREATMENT CODE/TIME: 94810 x 23 minutes beginning at 15:42 PM. Thank you for the opportunity to participate in the care of this patient. Anne Gar PT, DPT, CLT [facility] [place], [place]
[2020-12-16] MEDS: ceFAZolin 1 GM/50 ML BAG IVPB (16:15)
[2020-12-16] MEDS: Omeprazole 20 MG CAPCR PO (21:11)
[2020-12-16] MEDS: Apixaban 2.5 MG TAB PO (21:12)
[2020-12-17] MEDS: ceFAZolin 1 GM/50 ML BAG IVPB ×2 (00:22→07:20)
[2020-12-17] MEDS: Normal Saline Flush 10 ML SYR IV ×3 (00:25→10:11)
[2020-12-17] MEDS: Lactated Ringers 1,000 ML 80 ML IV (01:55)
[2020-12-17] MEDS: Ketorolac 15 MG/ML VIAL IVP ×2 (01:58→09:36)
[2020-12-17 02:00] VITALS: O2SAT 95
[2020-12-17 03:40] VITALS: BP 118/73; PULSE 83; RESP 17; TEMP 36.7; O2SAT 97
[2020-12-17] MEDS: Levothyroxine 50 MCG TAB PO (06:30)
[2020-12-17] MEDS: oxyCODONE 5 MG TAB PO (06:30)
[2020-12-17 07:15] VITALS: BP 144/78; PULSE 88; RESP 16; TEMP 37.4; O2SAT 93
[2020-12-17] MEDS: Apixaban 2.5 MG TAB PO (07:20)
[2020-12-17] MEDS: Acetaminophen 500 MG TAB 1000 MG PO (07:20)
[2020-12-17] MEDS: Cholecalciferol (Vitamin D3) 1,000 UNIT TAB 2000 UNITS PO (07:33)
[2020-12-17 08:12] LABS: HGB 10.6 g/dL (11.2-15.7); MCH 29.2 pg (27.0-33.0); MCHC 31.2 % (32.0-36.0); MCV 93.7 fL (80-95); MPV 9.7 fL (8.0-11.0); Platelet Count 336 10^3/uL (130-400); RBC 3.63 10^6/uL (3.93-5.22); RDW 13.4 % (11.7-14.6); WBC 10.03 10^3/uL (4.4-10.8)
--- NOTE | 2020-12-17 08:16 | DSE_ITS ---
Date of service: 12/17/20 Time of Service: 08:17 DS: Diagnosis Discharge Diagnosis (1) Degenerative joint disease of right knee: Status: Acute Discharge Plan Disposition Patient Disposition: HOME Condition: Good Discharge Details Reason For Visit: Right Knee DJD Admit Date/Time: 12/16/20 07:02 Admit Provider: Timmy Antunez Attending Provider: Timmy Antunez Primary Care Provider: Roxy Mehta [facility] Course Hospital Course: Patient was admitted to the medical/surgical floor following the procedure. She suffered some hypotension and hypoxia at the time of cementing and this took some time to respond. 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 With her history of blood clots, a CT of the chest for PE was obtained and was negative. The surgery was tolerated well and she remained stable with supportive oxygen and monitoring. Given this, she was admitted for observation. Mobilization began postoperatively. She was voiding spontaneously. Vitals reamained stable. Physical therapy worked with the patient and was cleared for discharge home. No acute medical issues. Pain was controlled on oral regimen. Home Meds and New Rx's Prescriptions: New celecoxib 200 mg capsule 200 mg PO BID PRN (Reason: pain) Qty: 60 RF: 1 acetaminophen 500 mg tablet 1,000 mg PO Q8H PRN (Reason: pain) Qty: 90 RF: 3 docusate sodium [Colace] 100 mg capsule 100 mg PO BID PRNQty: 10 RF: 0 oxycodone 5 mg tablet 5 mg PO Q4H Qty: 15 RF: 0 Continued chlorhexidine gluconate [Hibiclens] 4 % liquid 1 applic topical DAILY Qty: 473 RF: 0 estradiol [Yuvafem] 10 mcg tablet 10 mcg VG .three times weekly Qty: 36 RF: 4 apixaban 2.5 mg tablet 2.5 mg PO BID Qty: 180 RF: 6 cholecalciferol (vitamin D3) [Vitamin D3] 2,000 UNIT capsule 2,000 unit PO DAILY RF: 0 EZ Tears 2 tab PO DAILY RF: 0 levothyroxine [Levoxyl] 50 mcg tablet 50 mcg PO DAILY Qty: 90 RF: 4 losartan 50 mg tablet 50 mg PO DAILY Qty: 90 RF: 5 fluticasone propionate [Flonase Allergy Relief] 50 mcg/actuation spray,suspension 1 spray intranasal DAILY 90 Days Qty: 3 RF: 4 Discontinued acetaminophen [Tylenol] 325 MG tablet 650 mg PO Q6H PRN PRNQty: 30 RF: 0 No Action omeprazole 20 mg capsule,delayed release(DR/EC) 20 mg PO HS RF: 0 Discharge Instructions Additional Instructions: Total Knee Discharge Instructions Activity: The most important activity is to walk. You should try to take short walks a few times a day. It is important that when resting you work on keeping the knee straight. Avoid putting a pillow behind the knee as this will encourage flexion. Work on range of motion exercises as provided by Physical Therapy. If you have the [employer] bike coming, this will be your primary tool for exercise after the knee replacement. You should use it and follow the dir ections for the knee. Utilize the other exercises sparingly based on your symptoms. - Start outpatient physical therapy within 2 weeks. - You should wear the DEVANTE hose on both legs for 2 weeks. You may remove these at night. You may also use any compression sock in place of the DEVANTE hose. - Utilize [employer] to review exercises, see videos on exercises and obtain basic information pertaining to your surgery and your recovery. Dressing: Keep the surgical dressing, Mepilex, in place for at least one week. After the first week it may be removed and replaced with light gauze and tape or nothing. The wound and dressing may get wet after 3 days but avoid soaking the dressing or otherwise it will need to be changed. Many people prefer covering the dressing with cling wrap (saran wrap) to minimize it from getting soaked. If it gets wet, just pat dry. If it starts to peel off then it will need to be changed. Medications: - You should take Tylenol and anti-inflammatory Celebrex as your primary pain control medications. If the Celebrex is too expensive or not covered, please call the office for another alternative (Advil/Ibuprofen or Naproxen/Aleve) - You have been prescribed a stronger pain medication Oxycodone for breakthrough pain, take as needed as prescribed. - You will continue your stomach acid reduction agent, Omeprazole to help reduce stomach acid and reflux. - You will be taking your home dose of Eliquis (Apixaban) 2.5mg BID for DVT prevention. You may start this at bedtime today. - If you have constipation you should take Colace or Miralax (both [id number]). It takes most people 3-4 days to have a bowel movement. Follow-up: 2 weeks If you have any acute concerns or questions, please do not hesitate to contact the office at [phone]. You may contact Dr. Antunez with any questions after hours through the hospital at [phone] or on his cell phone at [phone]. Remember the [employer] website has very helpful information about your surgery and your recovery and many questions can be answered there too. Referrals: Timmy Antunez MD [ [facility] STAFF PHYSICIAN] - Activity:: Activity as Tolerated Equipment/Supplies:: Walker Diet:: As Tolerated Discharge Orders Discharge Orders: Discharge Order (Routine); Ordered 12/17/20 Ordered By: Timmy Antunez DS: Summary Time Spent with Patient providing and/or coordinating discharge services: Less than 30 minutes Status at Discharge Functional status at discharge: uses cane/walker Overall status at discharge: patient is progressing back to baseline Mental Status: mental status grossly normal Speech and Movement: speech and movement normal Mood: congruent mood Affect: normal affect Exam Psych Mental Status: mental status grossly normal Speech and Movement: speech and movement normal Mood: congruent mood Affect: normal affect DS: Data Vitals/I&O Vitals and I&O: Vital Signs Temperature 37.4 C 12/17/20 07:15 Temperature Source Tympanic 12/17/20 07:15 Pulse 88 12/17/20 07:15 Pulse Rhythm Regular 12/17/20 06:38 Respiratory Rate 16 12/17/20 07:15 Respiratory Effort Non-Labored 12/17/20 06:38 Respiratory Depth Normal 12/17/20 06:38 Respiratory Pattern Normal 12/17/20 06:38 Blood Pressure 144/78 H 12/17/20 07:15 Blood Pressure Mean 89 12/16/20 15:03 Blood Pressure Position Supine 12/16/20 15:03 Pulse Oximetry 93 12/17/20 07:15 Respiratory End-tidal CO2 30 12/16/20 11:24 Oxygen Delivery Method Nasal Cannula 12/17/20 07:15 Oxygen Flow Rate 1 12/17/20 07:15 Pain Level 2 12/17/20 07:30 Comment 12/16/20 15:03 Intake & Output 12/16/20 12/16/20 12/17/20 11:59 23:59 11:59 Intake Total 1120 / 1246.667 126.667 / 1573.343 7064.333 / 1173.333 Output Total 300 / 1350 1050 / 1350 550 / 550 Balance 820 / -103.333 -923.333 / -103.333 623.333 / 623.333 Weight 80.9 kg 86.7 kg Intake: IV 1120 / 1246.667 126.667 / 1246.667 933.333 / 933.333 Oral 240 / 240 Output: Urine 1050 / 1050 550 / 550 Estimated Blood Loss 300 / 300 Other: Urine Color Straw Dark Julianne Urine Appearance Clear Clear Urine Odor Strong Normal Emesis Description None None Voiding Methods Bedside Commode Bedside Commode Data Completed and Pending Labs on day of discharge: Labs from last 24 hours 12/17/20 12/17/20 12/16/20 07:42 07:42 09:42 WBC Pending RBC Pending Hgb Pending Hct Pending MCV Pending MCH Pending MCHC Pending RDW Pending Plt Count Pending MPV Pending ABG Sample Site Left Radial ABG pH 7.34 L ABG pCO2 47 H ABG pO2 81 ABG HCO3 26 ABG Total CO2 24 ABG O2 Saturation 96 ABG Base Excess 0 Oxygen Liter Flow 8 FiO2 Unknown/Not Given Sodium Pending Potassium Pending Chloride Pending Carbon Dioxide Pending Anion Gap Pending BUN Pending Creatinine Pending Estimated GFR/1.73 m2 Pending Glucose Pending Calcium Pending [facility] Medical History Abdominal mass (10/02/12) Abnormal mammogram 03/02/00 left breast=cyst;2001-right breast, per U/S at [facility] [place]-simple cysts, also a recent biopsy Abnormal mammography (03/02/00) Abnormal weight loss 02/14/12 Allergic rhinitis Anemia Arthritis of both knees (01/26/15) Cataract Cervical arthritis with foraminal encroachment chiro care Chronic rhinitis Colon polyp Colon polyps hyperplastic polyps Degenerative joint disease of right knee Depo-Medrol injection: 07/27/2020 Depressive disorder Depressive disorder Diabetes mellitus Diabetes mellitus (07/17/12) Diverticulosis Diverticulosis of colon without diverticulitis (09/28/11) Elevated liver function tests (08/27/13) Elevated platelet count (02/03/15) persistent and increasing referral to hemotology Colonoscopy,EGD, Bone marrow BX Essential hypertension (03/15/13) Family history of malignant neoplasm of breast Family hx-breast malignancy grandmother,aunt and mother Gastroesophageal reflux disease GERD (gastroesophageal reflux disease) GERD (gastroesophageal reflux disease) Hiatal hernia Hyperlipidemia Hyperlipidemia (10/29/12) Hypoferremia (09/03/15) Iron deficiency anemia 04/30/15; DR. CORRALES Iron deficiency anemia, unspecified Low ferritin (03/24/15) Low ferritin level (03/24/15) Low serum iron (09/03/15) Memory changes (12/15/15) MMSE NSAID induced gastritis Osteopenia Osteopenia (03/02/03) normal Vitamin D level T-scores -1.8, -1.1, -0.8 Pes anserinus bursitis of left knee Post zoster neuralgia Primary fibromyalgia syndrome Pulmonary emboli Pulmonary embolism 08/2016 Stress due to spouse with dementia (06/01/17) Stress due to spouse with dementia Thrombocytosis Thyroid cyst (03/24/15) on carotid us 2+cm cyst Surgical History Abdominal hysterectomy HAS 1 OVARY Arthroplasty of knee 08/03/15-LEFT KNEE BUNIONECTOMY 2006,2007 section Colonoscopy - IV Sedation (09/14/11) DR. JOYA-HYPERPLASTIC POLYPS; DIVERTICULOSIS EGD - IV Sedation 03/12/12 ; 02/2014 DR. CORRALES Excision, Lesion (07/20/17) right breast skin lesion - seborrrheic keratosis Extraction of cataract H/O abdominal hysterectomy H/O bilateral salpingectomy H/O cataract removal with insertion of prosthetic lens H/O section H/O esophagogastroduodenoscopy 04/03/11 Dr. Joya-2011, Dr. Corrales--02/2014 H/O knee surgery 12/11/14 repair of left medial meniscal tear History of bilateral salpingectomy History of cataract removal with insertion of prosthetic lens History of section Meniscectomy 12/11/14; [facility]; LEFT PARTIAL KNEE S/P abdominal hysterectomy one ovary remains S/P bunionectomy 2006,2007 S/P total knee replacement 08/02/15 left SALPINGECTOMY B/L Status post bunionectomy Status post total knee replacement Family History Mother , 83 Renal failure syndrome Essential hypertension Depression Heart disease Hyperlipidemia Breast cancer Father , 82 Essential hypertension Depression Heart disease Hyperlipidemia Stroke Sister Essential hypertension Depression Brother , MVA at age 21. No problems noted. Maternal Grandfather , 78 Stroke Paternal Grandfather Heart disease Maternal Grandmother , 93 Heart disease Breast cancer Paternal Grandmother No problems noted. Sister Depression Son No problems noted. Social History Smoking/Tobacco Use Status: Former Tobacco Use Quit Date: 04/03/00 Tobacco: How many years used: 35 Quit status: quit date established Second Hand Exposure: Yes Smoking risk assessment performed?: Yes Alcohol Intake: current Alcohol Intake frequency: a few times a week Alcohol type: wine Counseling provided: reduce to 2 or less/day Drug use: Never Substance use type: does not use Counseling given: No Household members: spouse and none Housing: house Communication Needs: Hard of Hearing Do you need help understanding health information?: Rarely Pets and animals: No Sexually active: No Do you think of yourself as: straight/heterosexual Current gender identity: female What is your relationship status?: How often do you talk on the phone with friends or family?: three or more times per week How often do you get together with friends or relatives?: once per week How often do you attend oriental orthodox or rastafari services?: decline to answer Do you belong to any clubs or organized social groups?: yes Panel score (0-1 are the most socially isolated patients): 2 What type of physical activity do you participate in: walking Duration: 45-60 minutes/day Frequency: 5-6 times per week Corinna/Muslim: none Special corinna needs: No Seatbelt use: always Helmet use: No Drive intox or ride w/intox driver service technician: No Do you feel safe at home: Yes Additional Social history: lives alone
[2020-12-17 08:29] LABS: Anion Gap 7.1 mmol/L (3-11); BUN 12 mg/dL (7-18); CO2 26.9 mmol/L (21.0-32.0); CREATININE 0.9 mg/dL (0.55-1.02); Calcium 8.2 mg/dL (8.5-10.1); Chloride 105 mmol/L (98-107); Glucose 178 mg/dL (74-106); Potassium 4.4 mmol/L (3.5-5.1); Sodium 139 mmol/L (136-145)
[2020-12-17] MEDS: Ondansetron 4 MG/2 ML VIAL IVP (10:11)
--- NOTE | 2020-12-17 17:00 | PT.INDS ---
Date of service: 12/17/20 PT Notes Visit Reasons: Right Knee DJD Physical Therapy Inpatient Discharge Summary Date: 12/17/2020 Dates of service: 12/16/2020 through 12/17/2020 Referring Doctor: Timmy Antunez MD PT Orders: PT CONSULT: Status post Ortho surgery Precautions: WBAT on right LE with AD. Patient Profile/Admitting Diagnosis: Vania is a 79-year-old female with degenerative joint disease of the right knee and is status post right total knee arthroplasty on postoperative day 0. Patient was admitted by orthopod for observation in the medical surgical unit due to postoperative bone cement implantation syndrome. PMHX: Medical History (Updated 07/27/20 @ 16:10 by Roxy Mehta MD, [place]) Abdominal mass (10/02/12) Abnormal mammogram 03/02/00 left breast=cyst;2001-right breast, per [place] [facility] [place], also a recent biopsy Abnormal mammography (03/02/00) Abnormal weight loss 02/14/12 Allergic rhinitis Anemia Arthritis of both knees (01/26/15) Cataract Cervical arthritis with foraminal encroachment chiro care Chronic rhinitis Colon polyps hyperplastic polyps Degenerative joint disease of right knee Depo-Medrol injection: 07/27/2020 Depressive disorder Diabetes mellitus (07/17/12) Diverticulosis Diverticulosis of colon without diverticulitis (09/28/11) Elevated liver function tests (08/27/13) Elevated platelet count (02/03/15) persistent and increasing referral to hemotology Colonoscopy,EGD, Bone marrow BX Essential hypertension (03/15/13) Family hx-breast malignancy grandmother,aunt and mother Gastroesophageal reflux disease GERD (gastroesophageal reflux disease) Hiatal hernia Hyperlipidemia (10/29/12) Hypoferremia (09/03/15) Iron deficiency anemia 04/30/15; DR. CORRALES Iron deficiency anemia, unspecified Low ferritin level (03/24/15) Low serum iron (09/03/15) Memory changes (12/15/15) MMSE NSAID induced gastritis Osteopenia (03/02/03) normal Vitamin D level T-scores -1.8, -1.1, -0.8 Pes anserinus bursitis of left knee Post zoster neuralgia Primary fibromyalgia syndrome Pulmonary embolism5 08/2016 Stress due to spouse with dementia (06/01/17) Thrombocytosis Thyroid cyst (03/24/15) on carotid us 2+cm cyst Surgical History Abdominal hysterectomy HAS 1 OVARY Arthroplasty of knee 08/03/15-LEFT KNEE BUNIONECTOMY 2006,2007 section Colonoscopy - IV Sedation (09/14/11) DR. JOYA-HYPERPLASTIC POLYPS; DIVERTICULOSIS EGD - IV Sedation 03/12/12 ; 02/2014 DR. CORRALES Excision, Lesion (07/20/17) right breast skin lesion - seborrrheic keratosis Extraction of cataract H/O abdominal hysterectomy H/O bilateral salpingectomy H/O cataract removal with insertion of prosthetic lens H/O section H/O esophagogastroduodenoscopy 04/03/11 Dr. Joya-2011, Dr. Corrales--02/2014 H/O knee surgery 12/11/14 repair of left medial meniscal tear History of bilateral salpingectomy History of cataract removal with insertion of prosthetic lens History of section Meniscectomy 12/11/14; [facility]; LEFT PARTIAL KNEE S/P abdominal hysterectomy one ovary remains S/P bunionectomy 2006,2007 S/P total knee replacement 08/02/15 left SALPINGECTOMY B/L Status post bunionectomy Status post total knee replacement Social History/Home Situation: Lives alone in a trailer with 3 steps to enter. Son will be checking in on her as she recovers at home. Equipment Owned/DME: None Subjective: Feels a lot better cmpared to yesterday. Denies any SOB, chest pain, and headache but did report being mildy woozy and clammy after ambulation activity. Objective: General Observation: Supine in bed. MARY wraps on R LE. Cryocuff on R LE. IV access in R UE. Mental Status: Alert and oriented x 4 Pain: Reported 2-3/10 pain in the R knee during straight leg raise ROM: Right Lower Extremity: Hip flexion WFL. Hip abduction WFL. Knee flexion about 20 degrees to 90 degrees with empty end feel. Knee extension -20 degrees. Ankle dorsiflexion WFL. Ankle plantarflexion WFL. Left Lower Extremity: Hip flexion WFL. Hip abduction WFL. Knee flexion WFL. Ankle dorsiflexion WFL. Ankle plantarflexion WFL. Strength: Right Lower Extremity: Hip flexors 5/5. Hip abductors 5/5. Knee flexors 5/5. Knee extensors 3-/5. Ankle dorsiflexors 3-/5. Ankle plantarflexors 5/5. Left Lower Extremity:Hip flexors 5/5. Hip abductors 5/5. Knee flexors 5/5. Knee extensors 5/5. Ankle dorsiflexors 5/5. Ankle plantarflexors 5/5. Sensation: Denies numbness and tingling in B LE Bed Mobility/Transfers: Supine to sit standby assist Sit to stand standby assist Stand to sit standby assist Gait: Instructed patient on level surface ambulation of about 80 feet +80 feet using a front wheeled walker with standby assist using step to gait pattern. Complained of being clammy and woozy. Nurse Isabella updated. Vital signs 142/70 mmHg, 97% oxygen saturation on room air, and 88 bpm with blood sugar measuring 263 mg/dL. Patient was able to walk back to room with no issues. Balance: Static Sitting: Normal Dynamic Sitting: Good Static Standing: Fair Dynamic Standing: Fair Assessment: Vania is a 79-year-old female with degenerative joint disease of the right knee and is status post right total knee arthroplasty on postoperative day 1. Patient was admitted by orthopod for observation in the medical surgical unit due to postoperative bone cement implantation syndrome. Patient presents with clinical signs and symptoms consistent with current/admitting diagnoses that have resulted to mobility limitations, gait instability, generalized weakness, and impairment of motor control as demonstrated by the following impairment level findings: 1. Decreased strength to R knee major muscle groups 2. Impaired standing balance 3. Limitation of joint range of motion in R knee 4. 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 Inability to safely ambulate due to safety concersn by PT provider at this time 2. Increase completion time for mobility ADL performance 3. Increased fall risk Goals: Goals X1 week 1. Supine-Sit independent MET 2. Sit-Supine independent MET 3. Sit-Stand independent NOT MET 4. Stand-Sit independent NOT MET 5. Bed-Chair independent NOT MET 6. Chair-Bed independent NOT MET 7. Independent gait on level surface with use of front-wheeled walker for at least 300 feet without report of pain nor dyspnea NOT MET 8. Independent stair negotiation while holding onto 1 rail for at least 3 steps without report of pain nor dyspnea NOT MET 9. Independent with home exercise program NOT MET 10. Good static and dynamic standing balance/tolerance NOT MET DISCHARGE RECOMMENDATIONS: Home when medically cleared by orthopedic surgery. Outpatient PT services to facilitate return to independent community ambulation without an assistive device. TREATMENT CODE/TIME: 91109 x 45 minutes for 3 units. Thank you for the opportunity to participate in the care of this patient. Anne Gar PT, DPT, CLT [facility] [place], [place]
== END 2020-12-17 10:51 | disposition home or self-care (01) ==
LOC: SUR 12:47 → MS 15:23
PROVIDERS: Nurse Anesthetist, Certified Registered; Admitting Provider Student in an Organized Health Care Education/Training Program; PCP Family Medicine; Visit Provider Student in an Organized Health Care Education/Training Program
PROC: (CPT 27447; principal; 2020-12-16 07:30)
DX: M17.11 Unilateral primary osteoarthritis, right knee (principal); R09.02 Hypoxemia; I95.89 Other hypotension; D64.9 Anemia, unspecified; E03.9 Hypothyroidism, unspecified; K21.9 Gastro-esophageal reflux disease without esophagitis; E78.5 Hyperlipidemia, unspecified; M85.80 Other specified disorders of bone density and structure, unspecified site; K44.9 Diaphragmatic hernia without obstruction or gangrene; I10 Essential (primary) hypertension; E11.9 Type 2 diabetes mellitus without complications; D47.3 Essential (hemorrhagic) thrombocythemia; Z86.711 Personal history of pulmonary embolism; I27.20 Pulmonary hypertension, unspecified
CPT/HCPCS: 27447; C1776; 71275; 80048; 82805; 85027; 97162; 97530; G0378; J0171; J0360; J0690; J1885; J2001; J2250; J2370; J2405; J3010; J3490

== ENCOUNTER 2020-12-31 11:00 | Outpatient (CLI) | payer MEDICARE, OTHER, SELFPAY ==
--- NOTE | 2020-12-31 10:15 | DI.RAD_ITS ---
Exam(s) XR KNEE RT 1V XR STANDING ALIGNMENT EXAM: XR STANDING ALIGNMENT and XR knee RT 1 V CLINICAL HISTORY: 1ST POST OP R TKA. TECHNIQUE: 2D digital imaging was performed. Four views were obtained. COMPARISON: CR XR STANDING ALIGNMENT from 11/06/2020 CR XR KNEE RT 1V from 12/31/2020 CR XR KNEE RT 1V from 12/31/2020 FINDINGS: Since the prior examination, the patient has undergone a right total knee replacement. The orthopedi c hardware in the right knee appears within normal limits. No lucencies are seen about the orthopedi c hardware to suggest loosening or infection. There is no acute fracture. The hip joints are well maintained. Patient has a left total knee replacement which appears grossly unremarkable. The ankles are well maintained. The left lower extremity measures 88.3 cm. The right lower extremity measures 87 cm. IMPRESSION: Interval placement of a right TKR. DATA REPOSITORY: RADIATION DOSE DELIVERED:
== END 2020-12-31 11:01 | disposition home or self-care (01) ==
LOC: DIORS 11:00
PROVIDERS: PCP Family Medicine; Referring Provider Family Medicine; Visit Provider Physician Assistant Surgical
DX: Z96.651 Presence of right artificial knee joint (principal); Z47.1 Aftercare following joint replacement surgery; M17.11 Unilateral primary osteoarthritis, right knee
CPT/HCPCS: 73560; 77073

== ENCOUNTER → 2021-02-01 12:57 | Outpatient (BNVA) | payer MEDICARE, OTHER, SELFPAY | PROVIDERS: PCP Family Medicine; Referring Provider Family Medicine; Visit Provider Student in an Organized Health Care Education/Training Program | DX: Z47.1 Aftercare following joint replacement surgery (principal); Z96.651 Presence of right artificial knee joint; M70.52 Other bursitis of knee, left knee | CPT/HCPCS: 99212 ==

== ENCOUNTER 2021-03-02 03:26 | Outpatient (CLI) | payer MEDICARE, OTHER, SELFPAY ==
[2021-03-02 12:49] LABS: Abs Immature Grans 0.03 10^3/uL (0.0-0.06); Absolute Basophil Count 0.08 10^3/uL (0.0-0.2); Absolute Eosinophil Count 0.16 10^3/uL (0.0-0.7); Absolute Lymphocyte Count 2.09 10^3/uL (1.2-3.4); Absolute Monocyte Count 0.59 10^3/uL (0.1-0.8); Absolute Neutrophil Count 4.62 10^3/uL (1.2-6.7); Basophils % 1.1; Eosinophils % 2.1; HCT 40.4 % (36.0-46.0); HGB 12.4 g/dL (11.2-15.7); Immature Grans % 0.4; Lymphocytes % 27.6; MCH 28.1 pg (27.0-33.0); MCHC 30.7 % (32.0-36.0); MCV 91.6 fL (80-95); MPV 9.6 fL (8.0-11.0); Monocytes % 7.8; Nucleated RBC 0 %; Platelet Count 551 10^3/uL (130-400); RBC 4.41 10^6/uL (3.93-5.22); RDW 13.5 % (11.7-14.6); RDW-SD 46.1 fL; WBC 7.57 10^3/uL (4.4-10.8)
[2021-03-02 12:56] LABS: Iron 44 ug/dL (50-170)
[2021-03-02 13:09] LABS: Ferritin 33 ng/mL (8-252)
[2021-03-02 13:16] LABS: Hemoglobin A1C 7.2 % (<5.7)
== END 2021-03-02 03:27 | disposition home or self-care (01) ==
LOC: LOS 03:26
PROVIDERS: PCP Family Medicine; Visit Provider Internal Medicine Hematology & Oncology
DX: D64.9 Anemia, unspecified (principal); E11.9 Type 2 diabetes mellitus without complications; D50.9 Iron deficiency anemia, unspecified
CPT/HCPCS: 36415; 82728; 83036; 83540; 85025

== ENCOUNTER → 2021-03-15 12:56 | Outpatient (BNVA) | payer MEDICARE, OTHER, SELFPAY | PROVIDERS: PCP Family Medicine; Visit Provider Student in an Organized Health Care Education/Training Program | DX: Z47.1 Aftercare following joint replacement surgery (principal); Z96.651 Presence of right artificial knee joint ==

== ENCOUNTER 2021-03-24 02:10 | Outpatient (RCR) | payer MEDICARE, OTHER, SELFPAY ==
[2021-03-12] MEDS: Normal Saline Flush 10 ML SYR IVP (12:57)
[2021-03-12] MEDS: SODIUM FER. GLUC./SUC. 125 MG in Normal Saline 100 ML 110 MG IVPB (13:11)
[2021-03-19] MEDS: SODIUM FER. GLUC./SUC. 125 MG in Normal Saline 100 ML 110 MG IVPB (13:08)
[2021-03-19] MEDS: Normal Saline Flush 10 ML SYR IVP (13:08)
[2021-03-24] MEDS: Normal Saline Flush 10 ML SYR IVP (13:03)
[2021-03-24] MEDS: SODIUM FER. GLUC./SUC. 125 MG in Normal Saline 100 ML 110 MG IVPB (13:11)
== END 2021-04-02 23:59 | disposition home or self-care (01) ==
LOC: INF 02:10
PROVIDERS: PCP Family Medicine; Visit Provider Family Medicine
DX: D50.9 Iron deficiency anemia, unspecified (principal)
CPT/HCPCS: 96365; J2916

== ENCOUNTER 2021-06-11 04:04 | Outpatient (CLI) | payer MEDICARE, SELFPAY ==
[2021-06-11 14:50] LABS: Abs Immature Grans 0.02 10^3/uL (0.0-0.06); Absolute Basophil Count 0.06 10^3/uL (0.0-0.2); Absolute Eosinophil Count 0.13 10^3/uL (0.0-0.7); Absolute Neutrophil Count 4.49 10^3/uL (1.2-6.7); Basophils % 0.8; Eosinophils % 1.6; HCT 42.6 % (36.0-46.0); HGB 13.5 g/dL (11.2-15.7); Immature Grans % 0.3; Lymphocytes % 33.8; MCH 28.6 pg (27.0-33.0); MCHC 31.7 % (32.0-36.0); MCV 90.3 fL (80-95); MPV 9.2 fL (8.0-11.0); Monocytes % 7.5; Nucleated RBC 0 %; Platelet Count 497 10^3/uL (130-400); RBC 4.72 10^6/uL (3.93-5.22); RDW-SD 46.7 fL
[2021-06-11 15:14] LABS: Ferritin 35 ng/mL (8-252)
[2021-06-11 15:15] LABS: Hemoglobin A1C 7.1 % (<5.7)
[2021-06-11 16:10] LABS: Iron 68 ug/dL (50-170)
[2021-06-11 16:42] LABS: TSH (W/Ref FT4) 1.25 uIU/mL (0.36-3.74)
== END 2021-06-11 04:05 | disposition home or self-care (01) ==
LOC: LBO 04:05
PROVIDERS: PCP Family Medicine; Visit Provider Internal Medicine Hematology & Oncology
DX: D64.9 Anemia, unspecified (principal); E03.9 Hypothyroidism, unspecified; I26.94 Multiple subsegmental thrombotic pulmonary emboli without acute cor pulmonale; E11.9 Type 2 diabetes mellitus without complications; D50.9 Iron deficiency anemia, unspecified
CPT/HCPCS: 36415; 82728; 83036; 83540; 84443; 85025

== ENCOUNTER 2021-06-21 18:31 | Outpatient (REF) | payer MEDICARE, SELFPAY ==
[2021-06-21 18:47] LABS: Bilirubin Negative (Negative); Blood Large (Negative); Clarity Sl Cloudy (Clear); Glucose Negative (Negative); Ketones Negative (Negative); Leukocyte Esterase Trace (Negative); Nitrite Positive (Negative); Specific Gravity >= 1.030 (1.005-1.025); Urobilinogen 0.2 EU/dL (Up TO 0.2); pH 5.5 (5-8)
[2021-06-21 18:59] LABS: Bacteria Many HPF (Negative); C & S Indicated? Yes; Casts Negative LPF (Negative); Crystals Negative HPF (Negative); Epithelial Cells Few HPF (Negative); Mucus Trace (Negative); RBC 20-50 HPF (0-2); WBC >50 HPF (0-5)
== END 2021-06-21 18:32 | disposition home or self-care (01) ==
LOC: NCHCN 18:31
PROVIDERS: PCP Family Medicine; Visit Provider Family Medicine
DX: R30.0 Dysuria (principal)
CPT/HCPCS: 87077; 81003; 81015; 87086; 87186

== ENCOUNTER 2021-07-09 12:03 | Outpatient (REF) | payer MEDICARE, SELFPAY ==
[2021-07-09 14:30] LABS: Bilirubin Negative (Negative); Blood Small (Negative); Clarity Sl Cloudy (Clear); Glucose Negative (Negative); Ketones Negative (Negative); Leukocyte Esterase Negative (Negative); Nitrite Negative (Negative); Specific Gravity >= 1.030 (1.005-1.025); Urobilinogen 0.2 EU/dL (Up TO 0.2)
[2021-07-09 14:40] LABS: Bacteria Few HPF (Negative); C & S Indicated? Yes; Crystals Negative HPF (Negative); Epithelial Cells Few HPF (Negative); Mucus Moderate (Negative); WBC >50 HPF (0-5)
== END 2021-07-09 12:04 | disposition home or self-care (01) ==
LOC: LBN 12:03
PROVIDERS: PCP Family Medicine; Visit Provider Physician Assistant
DX: N39.0 Urinary tract infection, site not specified (principal); R30.0 Dysuria; R39.89 Other symptoms and signs involving the genitourinary system
CPT/HCPCS: 87077; 81003; 81015; 87086; 87186; 87480; 87510; 87660

== ENCOUNTER 2021-07-26 03:13 | Outpatient (CLI) | payer MEDICARE, SELFPAY ==
--- NOTE | 2021-07-26 10:30 | DI.MAMMO_ITS ---
Exam(s) MAMMO DIAGNOSTIC BI EXAM: MAMMO DIAGNOSTIC BI CLINICAL HISTORY: persistent r breast pain,MASTODYNIA,N64.4 TECHNIQUE: Bilateral full field digital CC and MLO mammographic images were obtained with 3D tomosyn thesis and utilizing computer aided detection (CAD). COMPARISON: Available for comparison. FINDINGS: Masses/Architectural Distortion: None seen. Microcalcifications: No suspicious pleomorphic-type are seen. Skin Thickening/Nipple Retraction: None. IMPRESSION: 1. No significant interval change with no specific features of malignancy noted. 2. Unless there is more urgent need, screening mammography is recommended, as per [employer] guidelines. 3. Findings were discussed with the patient on the date of the examination. BI-RADS Category 1 - Negative Breast Density - Category C - Heterogeneously dense Breast density category C or D implies that the patient has dense breast tissue. Dense breast tissue is very common and is not abnormal but dense breast tissue can make it harder to find cancer on a ma mmogram. Also, dense breast tissue may increase their breast cancer risk. This information about the result of the mammogram report was provided to the patient to raise their awareness. Use this report when you speak with the patient about their risks for breast cancer, which includes their family hist ory. At that time, you may recommend for more screening tests (Ultrasound or MRI) as they might be us eful based on their risk. A negative radiographic report should not delay biopsy if a dominant or clinically suspicious mass is present. Up to ten percent of cancers are not identified on mammography. A negative report may reinforce clinical impression. Adenosis and dense breasts may obscure an underlying neoplasm. False positive reports average 6 to 10%. Patient will receive a letter notifying them of these results.
== END 2021-07-26 03:33 ==
PROVIDERS: PCP Family Medicine; Visit Provider Family Medicine
DX: N64.4 Mastodynia (principal)
CPT/HCPCS: 77062; 77066; G0279

== ENCOUNTER 2021-07-30 01:18 | Outpatient (RCR) | payer MEDICARE, SELFPAY ==
[2021-07-30] MEDS: Normal Saline Flush 10 ML SYR IVP (10:04)
[2021-07-30] MEDS: SODIUM FER. GLUC./SUC. 125 MG in Normal Saline 100 ML 110 MG IVPB (10:12)
== END 2021-07-31 23:59 | disposition home or self-care (01) ==
LOC: INF 01:18
PROVIDERS: PCP Family Medicine; Visit Provider Family Medicine
DX: D50.9 Iron deficiency anemia, unspecified (principal)
CPT/HCPCS: 96365; J2916

== ENCOUNTER 2021-08-13 01:19 | Outpatient (RCR) | payer MEDICARE, SELFPAY ==
[2021-08-06] MEDS: Normal Saline Flush 10 ML SYR IVP (10:10)
[2021-08-06] MEDS: SODIUM FER. GLUC./SUC. 125 MG in Normal Saline 100 ML 110 MG IVPB (10:20)
[2021-08-13] MEDS: Normal Saline Flush 10 ML SYR IVP (13:23)
[2021-08-13] MEDS: SODIUM FER. GLUC./SUC. 125 MG in Normal Saline 100 ML 110 MG IVPB (13:23)
== END 2021-08-31 23:59 | disposition home or self-care (01) ==
LOC: INF 01:19
PROVIDERS: PCP Family Medicine; Visit Provider Family Medicine
DX: D50.9 Iron deficiency anemia, unspecified (principal)
CPT/HCPCS: 96365; J2916

== ENCOUNTER 2021-08-25 04:19 | Outpatient (CLI) | payer MEDICARE, SELFPAY ==
[2021-08-25 12:49] LABS: HCT 43.5 % (36.0-46.0); MCH 29.4 pg (27.0-33.0); MCHC 32.2 % (32.0-36.0); MCV 91 fL (80-95); MPV 10.1 fL (8.0-11.0); Platelet Count 447 10^3/uL (130-400); RBC 4.77 10^6/uL (3.93-5.22); RDW-SD 50.4 fL; WBC 6.33 10^3/uL (4.4-10.8)
[2021-08-25 13:05] LABS: Hemoglobin A1C 7.1 % (<5.7)
[2021-08-25 13:06] LABS: Iron 128 ug/dL (50-170)
[2021-08-25 13:18] LABS: Ferritin 230 ng/mL (8-252)
== END 2021-08-25 04:20 | disposition home or self-care (01) ==
LOC: LOS 04:19
PROVIDERS: PCP Family Medicine; Visit Provider Family Medicine
DX: D64.9 Anemia, unspecified (principal); E11.9 Type 2 diabetes mellitus without complications
CPT/HCPCS: 36415; 85027; 82728; 83036; 83540

== ENCOUNTER → 2021-09-23 02:35 | Outpatient (CLI) | payer MEDICARE, SELFPAY ==
--- NOTE | 2021-09-23 08:45 | DI.DEXA_ITS ---
Exam(s) XR DEXA BONE DENSITY W/WO XU EXAM: XR DEXA BONE DENSITY W/WO XU CLINICAL HISTORY: osteopenia, M85.88 TECHNIQUE: nCino C densitometer analysis of left hip, lumbar spine and left forearm. COMPARISON: DX XU from 06/18/2008 CR XR LUMBAR SPINE COMPLETE from 09/18/2019 DEXA scan from 2003 through 2008 FINDINGS: Lateral view of the thoracic and lumbar spine shows no evidence of compression fractures. Degenera tive disc changes with sclerotic endplates are noted at L3-4 which increases bone mineral density alex surements. Bone mineral density measurements of the lumbar spine correspond to a total T-score of -0.3, in the normal range. This is unchanged from 2009 the represent is 6.3 percent increase from 2003. Bone mineral density measurements of the left hip correspond to a total T-score of -1.6 . The femora l neck T-score is -2.6, in the osteoporotic range. Total T-score in 2009 was -0.8 and a femoral neck T-score was -1.9.. The left forearm bone mineral density measurements correspond to a T-score of the distal 3rd of -2.5 , in the osteoporotic range. The forearm was not analyzed on the prior exams. IMPRESSION: Normal bone mineral density of the lumbar spine. 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
== END ==
PROVIDERS: PCP Family Medicine; Visit Provider Family Medicine
DX: M81.0 Age-related osteoporosis without current pathological fracture (principal)
CPT/HCPCS: 77080

== ENCOUNTER 2021-10-04 07:48 | Emergency (ER) | payer MEDICARE, SELFPAY ==
[2021-10-04 08:00] VITALS: BP 150/90; PULSE 78; RESP 18; TEMP 37.1
--- NOTE | 2021-10-04 08:11 | ED.GENADUL_ITS ---
Discharge Plan Disposition Patient Disposition: HOME Condition: Stable Discharge Details Clinical Impression: Acute pain of left ear, Acute dysfunction of eustachian tube Primary Care Provider: Roxy Mehta ED Provider: Janneth Strickland Home Meds and New Rx's Prescriptions: New methylprednisolone [Medrol (Sumanth)] 4 mg tablets,dose pack See Rx Instructions .ROUTE .COMPLEX Qty: 21 0RF Rx Instructions: orally per package directions Continued apixaban 2.5 mg tablet 2.5 mg PO BID Qty: 180 6RF estradiol [Yuvafem] 10 mcg tablet 10 mcg VG .three times weekly Qty: 36 4RF levothyroxine [Levoxyl] 50 mcg tablet 50 mcg PO DAILY Qty: 90 4RF omeprazole 20 mg capsule,delayed release(DR/EC) 20 mg PO HS Qty: 90 3RF losartan 100 mg tablet 100 mg PO DAILY Qty: 90 3RF cholecalciferol (vitamin D3) [Vitamin D3] 2,000 UNIT capsule 2,000 unit PO DAILY EZ Tears 2 tab PO DAILY estradiol 0.01 % (0.1 mg/gram) cream 1 g vaginal .twice weekly Qty: 42.5 5RF fluticasone propionate [Flonase Allergy Relief] 50 mcg/actuation spray,suspension 2 spray intranasal DAILY 90 Days Qty: 3 4RF Rx Instructions: administer into each nostril acetaminophen 500 mg tablet 1,000 mg PO Q8H PRN (Reason: pain) Qty: 90 3RF Discharge Instructions Instructions: Earache (ED) Additional Instructions: Your exam is not consistent with an ear infection, sinus infection or strep throat. Lungs are clear. Your ear pain seems most consistent with swelling Or blocked eustachian tube. Please continue with increased hydration, Tylenol, your Tamiko pot and Mucinex. We will like to start you on oral steroids to help reduce the swelling comfort. This has been sent to [facility] in [place]. As we discussed, this can elevate your sugar temporarily. Please take as directed on packaging. Please follow-up with primary care in 1 week for reevaluation. If you develop any new or worsening symptoms please seek care urgently once again. Referrals: Roxy Mehta [place], [place] [Primary Care Provider] - Medical Decision Making Patient is a pleasant 80-year-old female with past medical history pertinent for diet-controlled diabetes, pulmonary emboli anticoagulated on apixaban, presented with chief complaint of left ear pain. Patient was diagnosed with COVID-19 2 weeks ago. At the time of diagnosis, she was outside the window for treatment. She reports that overall her symptoms have been improving in regard to cough. Denies any shortness of breath. Has been monitoring her oxygen at home and has not had any episodes of desaturation. However, states that she has had increasing left ear pain that seems to come and sharp waves. She denies any discharge. Has been monitoring her temperature at home and states that it may be 1/10 above her typical. Denies any sinus pain, pain with chewing or dental pain, breathing or swallowing. She does report that she has throat. Has been Mucinex, Jenkins pot, Tylenol. Patient reports that she has had long history of sinusitis and has been trying to prevent this. Has had a large amount of mucus secretions. On exam, patient appears nontoxic. Vital signs are stable, patient afebrile. Lungs clear. She has no sinus discomfort with palpation. Posterior oropharynx is normal no erythema, swelling or exudate. Exams of her ears are normal. Denies any evidence of otitis media or otitis interna. However, patient does clearly have these waves of discomfort. With the increase continues to a ccretion description of the pain, on questioning she has eustachian tube function. Again, no evidence of bacterial infection no erythema, loss of landmarks, tympanic membrane. Patient discussed treatment options. There is severity of discomfort, he says it would be appropriate to treat her with oral steroids to help reduce swelling. We did discuss potential side effects of this medication. Return precautions were discussed. Encourage hydration and continuation of supportive therapies. Advise follow-up with primary care. All her questions and concerns were addressed and she is in agreement this plan. HPI General Date/Time Provider Initiated Documentation: 10/04/21 08:11 . Limitations to Documentation: no limitations . Information obtained by: patient and RN notes reviewed . History of Present Illness 80 year old F presents to the emergency department with the chief complaint of left ear pain, described as severe, Quality is described as sharp, and is localized to the face. Patient reports no radiation. Patient started experiencing this day(s) and it has been intermittent (waves of discomfort). No relieving factors improve symptom(s), No exacerbating factors reported . Patient notes cough (improving from recent dx of COVID); denies chest pain, fever/chills, nausea/vomiting, rash and shortness of breath. Related Data Home Medications Medication Instructions Recorded Confirmed cholecalciferol (vitamin D3) 50 2,000 unit PO DAILY 07/28/16 10/04/21 mcg (2,000 unit) capsule (Vitamin D3) Ez Tears 2 tab PO DAILY 06/01/17 09/02/21 apixaban 2.5 mg tablet 2.5 mg PO BID #180 tabs 09/29/20 10/04/21 acetaminophen 500 mg tablet 1,000 mg PO Q8H PRN pain #90 tabs 12/14/20 10/04/21 estradiol 0.01% (0.1 mg/gram) 1 g vaginal .twice weekly #42.5 07/09/21 10/04/21 vaginal cream grams estradiol 10 mcg vaginal tablet 10 mcg vaginal .three times weekly 07/12/21 10/04/21 (Yuvafem) #36 tabs levothyroxine 50 mcg tablet 50 mcg PO DAILY #90 tabs 07/12/21 10/04/21 (Levoxyl) losartan 100 mg tablet 100 mg PO DAILY #90 tabs 07/12/21 10/04/21 omeprazole 20 mg capsule,delayed 20 mg PO HS #90 caps 07/12/21 10/04/21 release fluticasone propionate 50 2 spray intranasal DAILY 90 days 09/28/21 10/04/21 mcg/actuation nasal #3 multiple units spray,suspension (Flonase Allergy Relief) methylprednisolone 4 mg tablets in See Rx Instructions PO .COMPLEX 10/04/21 a dose pack (Medrol (Sumanth)) #21 dose pk Previous Rx's Medication Instructions Recorded apixaban 2.5 mg tablet 2.5 mg PO BID #180 tabs 09/29/20 acetaminophen 500 mg tablet 1,000 mg PO Q8H PRN pain #90 tabs 12/14/20 estradiol 0.01% (0.1 mg/gram) 1 g vaginal .twice weekly #42.5 07/09/21 vaginal cream grams estradiol 10 mcg vaginal tablet 10 mcg vaginal .three times weekly 07/12/21 (Yuvafem) #36 tabs levothyroxine 50 mcg tablet 50 mcg PO DAILY #90 tabs 07/12/21 (Levoxyl) losartan 100 mg tablet 100 mg PO DAILY #90 tabs 07/12/21 omeprazole 20 mg capsule,delayed 20 mg PO HS #90 caps 07/12/21 release fluticasone propionate 50 2 spray intranasal DAILY 90 days 09/28/21 mcg/actuation nasal #3 multiple units spray,suspension (Flonase Allergy Relief) methylprednisolone 4 mg tablets in See Rx Instructions PO .COMPLEX 10/04/21 a dose pack (Medrol (Sumanth)) #21 dose pk Allergies Allergy/AdvReac Type Severity Reaction Status Date / Time bone cement Allergy Severe Verified 08/16/21 11:26 doxycycline Allergy PRURITIS Verified 08/16/21 11:26 General Stated Complaint: GenMedical MITRA: 3 Review of Systems Constitutional Constitutional: Reports as per HPI Eyes Eyes: Reports as per HPI, Denies eye discharge and Denies irritation ENT Ears, Nose, Mouth, and Throat: Reports as per HPI Cardiovascular Cardiovascular: Reports as per HPI, Denies chest pain and Denies dyspnea Respiratory Respiratory: Reports as per HPI and Denies dyspnea Integumentary/Breasts Skin/Breast: Reports as per HPI and Denies rash Neurologic Neurologic: Reports as per HPI PFSH All Active Problems (Updated 10/04/21 @ 08:50 by NIKKI Mcnair) Acute pain of left ear (Acute) Acute dysfunction of eustachian tube (Acute) Laceration of left breast without foreign body (Acute) Osteopenia (Acute) Breast pain, right (Acute) Skin lesion of face (Acute) History of total right knee replacement (Acute) s/p R TKA 12/16/20 Elevated erythrocyte sedimentation rate (Acute) Pes anserinus bursitis of left knee (Acute) Patellofemoral arthralgia of right knee (Acute) Chronic anemia (Chronic) continue iron infusions until ferritin over 100 Pulmonary hypertension (Acute) Pulmonary emboli (Acute) Shortness of breath (Acute) Anemia (Acute) Fatigue (Acute) Low back pain (Acute) Right knee pain (Acute) Post-nasal drip (Acute) Sensorineural hearing loss of both ears (Acute) Chronic rhinitis (Acute) Sinus infection (Acute) Hypothyroidism (Chronic) Insomnia (Acute) Seborrheic keratoses (Acute) Depression (Chronic) Family history of malignant neoplasm of breast (Chronic) Gastroesophageal reflux disease (Chronic) Low ferritin level (Chronic 03/24/15) Thyroid cyst (Chronic 03/24/15) on carotid us 2+cm cyst Osteopenia (Chronic 03/02/03) normal Vitamin D level T-scores -1.8, -1.1, -0.8 Memory changes (Chronic 12/15/15) MMSE 30 Hyperlipidemia (Chronic 10/29/12) Hiatal hernia (Chronic) Essential hypertension (Chronic 03/15/13) Diverticulosis of colon without diverticulitis (Chronic 09/28/11) Diabetes mellitus (Chronic 07/17/12) Cervical arthritis (Chronic) with foraminal encroachment chiro care Arthritis of both knees (Chronic 01/26/15) Thrombocytosis (Chronic) Medical History Abdominal mass (10/02/12) Abnormal mammogram 03/02/00 left breast=cyst;2001-right breast, per [facility] at [facility]-simple cysts, also a recent biopsy Abnormal mammography (03/02/00) Abnormal weight loss 02/14/12 Allergic rhinitis Cataract Chronic rhinitis Colon polyp Colon polyps hyperplastic polyps Degenerative joint disease of right knee TKA: 12/16/20 Depo-Medrol injection: 07/27/2020 Depressive disorder Depressive disorder Diabetes mellitus Diverticulosis Elevated platelet count (02/03/15) persistent and increasing referral to hemotology Colonoscopy,EGD, Bone marrow BX Family hx-breast malignancy grandmother,aunt and mother GERD (gastroesophageal reflux disease) GERD (gastroesophageal reflux disease) Hyperlipidemia Hypoferremia (09/03/15) Iron deficiency anemia 04/30/15; DR. CORRALES Iron deficiency anemia, unspecified Low ferritin (03/24/15) Low serum iron (09/03/15) NSAID induced gastritis Osteopenia Post zoster neuralgia Primary fibromyalgia syndrome Pulmonary emboli Pulmonary embolism 08/2016 Stress due to spouse with dementia (06/01/17) Stress due to spouse with dementia Surgical History Abdominal hysterectomy HAS 1 OVARY BUNIONECTOMY 2006,2007 section Colonoscopy - IV Sedation (09/14/11) DR. JOYA-HYPERPLASTIC POLYPS; DIVERTICULOSIS EGD - IV Sedation 03/12/12 ; 02/2014 DR. CORRALES Excision, Lesion (07/20/17) right breast skin lesion - seborrrheic keratosis Extraction of cataract H/O abdominal hysterectomy H/O bilateral salpingectomy H/O cataract removal with insertion of prosthetic lens H/O section H/O esophagogastroduodenoscopy 04/03/11 Dr. Joya-2011, Dr. Corrales--02/2014 H/O knee surgery 12/11/14 repair of left medial meniscal tear History of bilateral salpingectomy History of cataract removal with insertion of prosthetic lens History of section History of tonsillectomy and adenoidectomy Meniscectomy 12/11/14; [facility]; LEFT PARTIAL KNEE S/P abdominal hysterectomy one ovary remains S/P bunionectomy 2006,2007 S/P total knee replacement 08/02/15 left SALPINGECTOMY B/L Status post bunionectomy Status post total knee replacement Family History Mother , 83 Renal failure syndrome Essential hypertension Depression Heart disease Hyperlipidemia Breast cancer Father , 82 Essential hypertension Depression Heart disease Hyperlipidemia Stroke Sister Essential hypertension Depression Brother , MVA at age 21. No problems noted. Maternal Grandfather , 78 Stroke Paternal Grandfather Heart disease Maternal Grandmother , 93 Heart disease Breast cancer Paternal Grandmother No problems noted. Sister Depression Son No problems noted. Social History Smoking/Tobacco Use Status: Former Tobacco Use tobacco type: cigarettes Quit Date: 04/03/00 Tobacco: How many years used: 35 Second Hand Exposure: Yes Smoking risk assessment performed?: Yes Alcohol Intake: current Alcohol Intake frequency: a few times a month Alcohol type: wine Counseling provided: reduce to 2 or less/day Drug use: Never Substance use type: does not use Counseling given: No Caregiver/Support person: No Household members: none Housing: house Communication Needs: Hard of Hearing Do you need help understanding health information?: Rarely Pets and animals: No Sexually active: No Do you think of yourself as: straight/heterosexual Current gender identity: female What is your relationship status?: How often do you talk on the phone with friends or family?: three or more times per week How often do you get together with friends or relatives?: twice per week How often do you attend methodist or mormonism services?: decline to answer Do you belong to any clubs or organized social groups?: yes Panel score (0-1 are the most socially isolated patients): 2 What type of physical activity do you participate in: walking Duration: 30-45 minutes/day Frequency: 3-4 times per week Corinna/Evangelical: none Special corinna needs: No Seatbelt use: always Helmet use: No Drive intox or ride w/intox food mobile driver: No Do you feel safe at home: Yes Additional Social history: lives alone Exam Const General: cooperative, healthy appearing, comfortable, no acute distress, well developed and well groomed Nutritional Appearance: average body habitus and well nourished Orientation: alert and awake [facility] Head: normal to inspection and normocephalic Ears: hearing grossly normal bilaterally, external ears normal, TM's normal bilaterally, TM normal on the right, TM normal on the left, mastoids normal and no external ear abnormalities General nose exam: external nose normal and nares normal Face and sinus: normal facial exam, sinuses nontender and face symmetric Mouth: oral mucosae normal, lip normal, tongue normal, oropharynx normal and moist mucous membranes Teeth and gingiva: dentition normal and gingiva normal Throat: posterior oropharynx normal, tonsils normal and uvula midline Eyes General: appearance normal, both eyes and all related structures Neck Neck: normal visual inspection, full ROM and no lymphadenopathy Resp Effort & Inspection: normal respiratory effort, able to speak in complete sentences and no respiratory distress Auscultation: clear to auscultation bilaterally, no rales, no rhonchi and no wheezes Cardio Rate: regular rate Rhythm: regular rhythm Heart Sounds: S1 normal and S2 normal Skin General skin exam: no rashes or lesions noted Neuro General: patient alert and patient awake Cognition: normal cognition Speech: speech normal Gait: normal gait Psych Appearance: grossly normal and well kempt Mental Status: mental status grossly normal Speech and Movement: speech and movement normal Course Vital Signs Vital signs: Vital Signs Temperature 37.1 C 10/04/21 08:00 Pulse 78 10/04/21 08:00 Respiratory Rate 18 10/04/21 08:00 Blood Pressure 150/90 H 10/04/21 08:00 Temperature 37.1 C 10/04/21 08:00 Temperature Source Tympanic 10/04/21 08:00 Pulse 78 10/04/21 08:00 Respiratory Rate 18 10/04/21 08:00 Blood Pressure 150/90 H 10/04/21 08:00 Blood Pressure Position Sitting 10/04/21 08:00 Oxygen Delivery Method Room Air 10/04/21 08:00 Oxygen Flow Rate 0 10/04/21 08:00
[2021-10-04 08:15] VITALS: RESP 18
== END 2021-10-04 09:03 | disposition home or self-care (01) ==
PROVIDERS: Emergency Provider Physician Assistant; PCP Family Medicine
DX: H69.92 Unspecified Eustachian tube disorder, left ear (principal); E11.9 Type 2 diabetes mellitus without complications; Z87.891 Personal history of nicotine dependence; U07.1 COVID-19
CPT/HCPCS: 99283; 99284

== ENCOUNTER 2021-11-16 01:54 | Outpatient (CLI) | payer MEDICARE, SELFPAY ==
[2021-11-16 12:37] LABS: Hemoglobin A1C 7.3 % (<5.7)
[2021-11-16 12:45] LABS: ALT 31 U/L (14-59); AST 20 U/L (15-37); Albumin 3.4 g/dL (3.4-5.0); Alkaline Phosphatase 132 U/L (46-116); BUN 18 mg/dL (7-18); Bilirubin, Total 0.2 mg/dL (0.2-1.0); CREATININE 0.9 mg/dL (0.55-1.02); Calcium 8.9 mg/dL (8.5-10.1); Chloride 101 mmol/L (98-107); Glucose 238 mg/dL (74-106); Sodium 138 mmol/L (136-145); TSH (W/Ref FT4) 1.81 uIU/mL (0.36-3.74); Total Protein 7.6 g/dL (6.4-8.2)
[2021-11-17 08:44] LABS: Iron 63 ug/dL (50-170)
[2021-11-17 08:58] LABS: Ferritin 43 ng/mL (8-252)
== END 2021-11-16 01:55 | disposition home or self-care (01) ==
LOC: LOS 01:54
PROVIDERS: PCP Family Medicine; Visit Provider Family Medicine
DX: E11.9 Type 2 diabetes mellitus without complications (principal); D64.9 Anemia, unspecified; I27.20 Pulmonary hypertension, unspecified; R79.0 Abnormal level of blood mineral
CPT/HCPCS: 80053; 82728; 83036; 83540; 84443

== ENCOUNTER 2021-11-25 02:37 | Outpatient (RCR) | payer MEDICARE, SELFPAY ==
[2021-11-25] MEDS: Normal Saline Flush 10 ML SYR IVP (09:31)
[2021-11-25] MEDS: SODIUM FER. GLUC./SUC. 125 MG in Normal Saline 100 ML 110 MG IVPB (09:43)
== END 2021-12-01 23:59 | disposition home or self-care (01) ==
LOC: INF 02:37
PROVIDERS: PCP Family Medicine; Visit Provider Family Medicine
DX: D50.9 Iron deficiency anemia, unspecified (principal)
CPT/HCPCS: 96365; J2916

== ENCOUNTER 2021-12-09 02:36 | Outpatient (RCR) | payer MEDICARE, SELFPAY ==
[2021-12-02] MEDS: SODIUM FER. GLUC./SUC. 125 MG in Normal Saline 100 ML 110 MG IVPB (10:08)
[2021-12-02] MEDS: Normal Saline Flush 10 ML SYR IVP ×2 (10:09→11:10)
[2021-12-09] MEDS: Normal Saline Flush 10 ML SYR IVP (09:46)
[2021-12-09] MEDS: SODIUM FER. GLUC./SUC. 125 MG in Normal Saline 100 ML 110 MG IVPB (09:49)
== END 2021-12-31 23:59 | disposition home or self-care (01) ==
LOC: INF 02:36
PROVIDERS: PCP Family Medicine; Visit Provider Family Medicine
DX: D50.9 Iron deficiency anemia, unspecified (principal)
CPT/HCPCS: 96365; J2916

== ENCOUNTER 2021-12-20 13:48 | Outpatient (CLI) | payer MEDICARE, SELFPAY ==
--- NOTE | 2021-12-20 13:30 | DI.RAD_ITS ---
Exam(s) XR KNEE RT 2V AP,LAT EXAM: XR KNEE RT 2V AP,LAT INDICATION: ANNUAL F/U R TKA. COMPARISON: CR XR KNEE RT 1V from 12/31/2020 TECHNIQUE: 2D digital imaging was performed. Two views. FINDINGS: There has been no change in the appearance of the total knee prosthesis or appearance of the surround ing bone. DATA REPOSITORY: RADIATION DOSE DELIVERED:
== END 2021-12-20 13:49 | disposition home or self-care (01) ==
LOC: DIORS 13:48
PROVIDERS: PCP Family Medicine; Referring Provider Family Medicine; Visit Provider Student in an Organized Health Care Education/Training Program
DX: Z96.651 Presence of right artificial knee joint (principal)
CPT/HCPCS: 99214; 73560

== ENCOUNTER 2022-02-17 03:30 | Outpatient (CLI) | payer MEDICARE, SELFPAY ==
[2022-02-17 12:51] LABS: Hemoglobin A1C 7.5 % (<5.7)
[2022-02-17 12:54] LABS: Iron 60 ug/dL (50-170)
[2022-02-17 12:57] LABS: COMMENT (LAB VIEW ONLY) 101.71 mg/dL; Microalb ug/mg Crea 6.6 ug/mg Cr
[2022-02-17 18:51] LABS: Ferritin 72 ng/mL (8-252)
== END 2022-02-17 03:31 | disposition home or self-care (01) ==
LOC: LOS 03:30
PROVIDERS: PCP Family Medicine; Visit Provider Family Medicine
DX: D64.9 Anemia, unspecified (principal); E11.9 Type 2 diabetes mellitus without complications
CPT/HCPCS: 36415; 82043; 82570; 82728; 83036; 83540

== ENCOUNTER 2022-02-25 00:59 | Outpatient (RCR) | payer MEDICARE, SELFPAY ==
[2022-02-25] MEDS: Normal Saline Flush 10 ML SYR IVP (11:15)
[2022-02-25] MEDS: SODIUM FER. GLUC./SUC. 125 MG in Normal Saline 100 ML 110 MG IVPB (11:20)
== END 2022-03-02 23:59 | disposition home or self-care (01) ==
LOC: INF 00:59
PROVIDERS: PCP Family Medicine; Visit Provider Family Medicine
DX: D64.9 Anemia, unspecified (principal)
CPT/HCPCS: 96365; J2916

== ENCOUNTER → 2022-02-28 13:33 | Outpatient (BNVA) | payer MEDICARE, SELFPAY | PROVIDERS: PCP Family Medicine; Referring Provider Family Medicine; Visit Provider Student in an Organized Health Care Education/Training Program | DX: Z96.651 Presence of right artificial knee joint (principal) | CPT/HCPCS: 99213 ==

== ENCOUNTER 2022-04-11 02:57 | Outpatient (CLI) | payer MEDICARE, SELFPAY ==
--- NOTE | 2022-04-11 07:30 | DI.RAD_ITS ---
Exam(s) XR CHEST 2V PA LATERAL EXAM: XR CHEST 2V PA LATERAL CLINICAL HISTORY: cough,BRONCHITIS, J40,R05.9 TECHNIQUE: 2D digital imaging was performed. COMPARISON: CT CT CHEST PE CTA from 12/16/2020 FINDINGS: Moderate size hiatal hernia with air-fluid level. HEART: Normal size. Aorta: Not dilated. Calcification at arch. PULMONARY VASCULATURE: Normal. LUNGS: Clear. PLEURAL SPACE: No pleural effusion or pneumothorax. BONE:Unremarkable for age. IMPRESSION: No acute abnormality. Hiatal hernia. DATA REPOSITORY: RADIATION DOSE DELIVERED:
[2022-04-11] MEDS: Albuterol HFA 18 GM 200 PUFF INH IH (14:18)
[2022-04-11] MEDS: Inhaler, Assist Device 1 EACH MC (14:18)
--- NOTE | 2022-04-11 14:48 | W.PFT ---
Date of service: 04/11/22 Time of Service: 13:02 Pulmonary Function Test Result Requesting Provider Roxy Mehta Indications: Cough and dyspnea Interpretation Spirometry: There is no airflow limitation. There is no significant bronchodilator response. Lung Volumes: Normal lung volumes Diffusion Capacity: Normal diffusion Airway Pressure: Normal airways resistance Impression Normal pulmonary function testing. Clinical Correlation therefore is recommended.
== END 2022-04-11 02:58 | disposition home or self-care (01) ==
PROVIDERS: PCP Family Medicine; Visit Provider Family Medicine
DX: R05.9 Cough, unspecified (principal); R06.09 Other forms of dyspnea; J45.909 Unspecified asthma, uncomplicated; Z87.891 Personal history of nicotine dependence
CPT/HCPCS: 94060; 94726; 94729; 71046

== ENCOUNTER 2022-04-15 01:12 | Outpatient (CLI) | payer MEDICARE, SELFPAY ==
[2022-04-15 12:14] LABS: HCT 40.5 % (36.0-46.0); HGB 12.9 g/dL (11.2-15.7); MCH 29.2 pg (27.0-33.0); MCHC 31.9 % (32.0-36.0); MCV 92 fL (80-95); MPV 9.6 fL (8.0-11.0); Platelet Count 594 10^3/uL (130-400); RBC 4.42 10^6/uL (3.93-5.22); RDW 13.2 % (11.7-14.6); WBC 12.87 10^3/uL (4.4-10.8)
[2022-04-15 12:29] LABS: Iron 74 ug/dL (50-170)
[2022-04-15 12:53] LABS: ALT 24 U/L (14-59); AST 21 U/L (15-37); Albumin 3.4 g/dL (3.4-5.0); Alkaline Phosphatase 134 U/L (46-116); Anion Gap 8.7 mmol/L (3-11); BUN 21 mg/dL (7-18); Bilirubin, Total 0.3 mg/dL (0.2-1.0); CO2 27.3 mmol/L (21.0-32.0); CREATININE 0.9 mg/dL (0.55-1.02); Chloride 103 mmol/L (98-107); Estimated GFR 64.63 (mL/min/1.73m2); Ferritin 95 ng/mL (8-252); Glucose 118 mg/dL (74-106); Sodium 139 mmol/L (136-145); TSH (W/Ref FT4) 3.61 uIU/mL (0.36-3.74); Total Protein 7.5 g/dL (6.4-8.2)
[2022-04-15 13:02] LABS: C-Reactive Protein 2.57 mg/dL (0.0-0.3)
[2022-04-15 22:45] LABS: Estimated Average Glucose 148 mg/dL; Hemoglobin A1C 6.8 % (<5.7)
== END 2022-04-15 01:13 | disposition home or self-care (01) ==
LOC: LOS 01:12
PROVIDERS: PCP Family Medicine; Visit Provider Family Medicine
DX: D64.9 Anemia, unspecified (principal); E03.9 Hypothyroidism, unspecified; I10 Essential (primary) hypertension; J01.90 Acute sinusitis, unspecified; R05.9 Cough, unspecified
CPT/HCPCS: 36415; 80053; 85027; 82728; 83036; 83540; 84443; 86140

== ENCOUNTER 2022-04-19 02:18 | Outpatient (CLI) | payer MEDICARE, SELFPAY ==
--- NOTE | 2022-04-19 08:40 | DI.CT_ITS ---
Exam(s) CT SINUS WO EXAM: CT SINUS WO CLINICAL HISTORY: chronic sinus infection,acute inflammation,j01.90. TECHNIQUE: Imaging Protocol: Axial computed tomography images with coronal and sagittal reformatted images were created and reviewed. No IV Contrast COMPARISON: CT CT SINUS WO from 06/20/2019 FINDINGS: MAXILLARY SINUSES: There are fluid levels in both maxillary sinuses consistent with acute sinusitis. No bone dehiscence in the maxillary sinus mccartney. No fractures evident. There is no evidence of bone dehiscence. OSTIOMEATAL UNITS: Echoes all thickening evident bilaterally ETHMOIDAL AIR CELLS: Well aerated. No mucosal thickening nor fluid levels. SPHENOID SINUSES: Well aerated. No mucosal thickening nor fluid levels. FRONTAL SINUSES: Well aerated. No mucosal thickening nor fluid levels. NASAL SEPTUM AND TURBINATES:Nasal septum is relatively midline with no evidence of significant nasal septal spur. There is no evidence of significant remington bullosa. IMPRESSION: 1. There are bilateral maxillary sinus fluid levels consistent with bilateral maxillary sinusitis. Insert opacification of the ostiomeatal units bilaterally. No bone dehiscence in either maxillary si nus. I note that prior CT scan of 06/20/2019 revealed unilateral left-sided maxillary sinusitis at t hat time. 2. Other paranasal sinuses are clear. RADIATION DOSE DELIVERED: 123.61mGy.cm Total DLP DATA REPOSITORY: All CT scans at this facility are submitted to the National Radiology Data Registry (NRDR) Dose Index Registry (DIR) with the [employer] (A[employer]). RADIATION OPTIMIZATION: All CT scans at this facility use at least one of these dose optimization te chniques: automated exposure control; mA and/or kV adjustment per patient size (includes targeted exa ms where dose is matched to clinical indication); or iterative reconstruction.
== END 2022-04-19 02:38 ==
LOC: DI 02:18
PROVIDERS: PCP Family Medicine; Visit Provider Family Medicine
DX: J01.90 Acute sinusitis, unspecified (principal)
CPT/HCPCS: 70486

== ENCOUNTER 2022-04-28 02:07 | Outpatient (RCR) | payer MEDICARE, SELFPAY ==
[2022-04-21] MEDS: SODIUM FER. GLUC./SUC. 125 MG in Normal Saline 100 ML 110 MG IVPB (13:16)
[2022-04-21] MEDS: Normal Saline Flush 10 ML SYR IVP (13:16)
[2022-04-28] MEDS: Normal Saline Flush 10 ML SYR IVP (13:08)
[2022-04-28] MEDS: SODIUM FER. GLUC./SUC. 125 MG in Normal Saline 100 ML 110 MG IVPB (13:08)
== END 2022-05-03 23:59 | disposition home or self-care (01) ==
LOC: INF 02:07
PROVIDERS: PCP Family Medicine; Visit Provider Family Medicine
DX: D50.9 Iron deficiency anemia, unspecified (principal)
CPT/HCPCS: 96365; J2916

== ENCOUNTER 2022-05-05 02:51 | Outpatient (RCR) | payer MEDICARE, SELFPAY ==
[2022-05-05] MEDS: SODIUM FER. GLUC./SUC. 125 MG in Normal Saline 100 ML 110 MG IVPB (13:10)
[2022-05-05] MEDS: Normal Saline Flush 10 ML SYR IVP (13:10)
== END 2022-05-31 23:59 | disposition home or self-care (01) ==
LOC: INF 02:51
PROVIDERS: PCP Family Medicine; Visit Provider Family Medicine
DX: D50.9 Iron deficiency anemia, unspecified (principal)
CPT/HCPCS: 96365; J2916

== ENCOUNTER 2022-05-19 01:25 | Outpatient (CLI) | payer MEDICARE, SELFPAY ==
[2022-05-23 11:06] LABS: Myeloperoxidase Ab IgG <0.2 U; Proteinase 3 Ab (PR3) <0.2 U
[2022-05-23 14:01] LABS: Angiotensin Converting Enzyme 35 U/L (16 - 85)
== END 2022-05-19 01:26 | disposition home or self-care (01) ==
LOC: LOS 01:25
PROVIDERS: PCP Family Medicine; Visit Provider Otolaryngology
DX: R53.83 Other fatigue (principal); R05.8 Other specified cough; J32.8 Other chronic sinusitis
CPT/HCPCS: 36415; 82164; 83516

== ENCOUNTER 2022-07-06 10:22 | Day surgery (SDC) | payer MEDICARE, SELFPAY ==
[2022-07-06] VITALS (8 sets, daily range): BP systolic 126–166; BP diastolic 69–86; PULSE 73–83; RESP 10–27; TEMP 36.4–37.1; O2SAT 95–99; BMI 32.3
[2022-07-06] MEDS: Lactated Ringers 1,000 ML 80 ML IV (11:10)
--- NOTE | 2022-07-06 11:30 | ANES.PREOP_ITS ---
General Info Date of Service Date Performed: 07/06/22 Height: 5 ft 3 in Weight: 82.8 kg Body Mass Index (BMI): 32.3 Surgical Procedure: Operation Date: 07/06/22 12:40 Proposed Procedure Side Surgeon p Knee Arthroscopy Synovectomy & Manipulation Right Timmy Antunez MD Meds Allergies and Home Medications Allergies Allergy/AdvReac Type Severity Reaction Status Date / Time bone cement Allergy Severe Verified 07/05/22 11:57 doxycycline Allergy PRURITIS Verified 06/06/22 10:54 Home Medication Medication Instructions Recorded cholecalciferol (vitamin D3) 50 2,000 unit PO DAILY 07/28/16 mcg (2,000 unit) capsule (Vitamin D3) Ez Tears 2 tab PO DAILY 06/01/17 levothyroxine 50 mcg tablet 50 mcg PO DAILY #90 tabs 07/12/21 (Levoxyl) omeprazole 20 mg capsule,delayed 20 mg PO HS #90 caps 07/12/21 release apixaban 2.5 mg tablet 2.5 mg PO BID #180 tabs 11/12/21 estradiol 10 mcg vaginal tablet 10 mcg vaginal .three times weekly 01/13/22 (Yuvafem) #36 tabs glipizide 5 mg tablet, extended 5 mg PO DAILY #90 tabs 01/13/22 release 24 hr estradiol 0.01% (0.1 mg/gram) 1 g vaginal .twice weekly #42.5 03/22/22 vaginal cream grams mupirocin 2 % topical ointment 1 applic topical BID PRN 03/22/22 losartan 100 mg tablet 100 mg PO DAILY #90 tabs 06/20/22 lipase 3,000-protease 1 cap PO DIRECTED 07/05/22 9,500-amylase 15,000 unit capsule, delayed rel (Creon) Current Visit Medications: Current Medications Generic Name Dose Route Start Last Admin Trade Name Freq PRN Reason Stop Dose Admin Ringer's Solution 1,000 mls @ 80 mls/hr 07/06/22 06:00 07/06/22 11:10 IV 08/04/22 23:59 80 mls/hr INFUSION TERRENCE Administration Cefazolin Sodium/Dextrose 2 gm in 50 mls @ 100 mls/hr 07/06/22 06:00 Ancef Duplex IVPB 08/04/22 23:59 PREOP TERRENCE IV Miscellaneous Supplies 1 each 07/06/22 06:00 Iv Access IV 08/04/22 23:59 DIRECTED TERRENCE Sodium Chloride 0 ml 07/06/22 06:00 Normal Saline Flush 10 Ml Syr IV 08/04/22 23:59 PRN PRN Sodium Chloride 0 ml 07/06/22 06:00 Normal Saline 10 Ml Vial IJ 08/04/22 23:59 DIRECTED PRN Sterile Water 0 ml 07/06/22 06:00 Water,Injection,Sterile 10 Ml Vial IJ 08/04/22 23:59 DIRECTED PRN PFSH Active Problems Active Problems: Problem Status Onset Code Sensorineural hearing loss H90.5 Wears hearing aid in both ears Z97.4 Sinusitis J32.9 Chronic sinusitis of both maxillary sinuses J32.0 Asthma J45.909 Bronchitis J40 Acute inflammation of sinus J01.90 Cough R05.9 Arthrofibrosis of total knee arthroplasty T84.82XA Painful total knee replacement, right T84.84XA, Z96.651 Nasal mucosa dry J34.89 Laceration of left breast without foreign body S21.012A Osteopenia M85.80 Breast pain, right N64.4 Skin lesion of face L98.9 History of total right knee replacement 12/16/20 Z96.651 Elevated erythrocyte sedimentation rate R70.0 Pes anserinus bursitis of left knee M70.52 Patellofemoral arthralgia of right knee M25.561 Chronic anemia D64.9 Pulmonary hypertension I27.20 Pulmonary emboli I26.99 Shortness of breath R06.02 Anemia D64.9 Fatigue R53.83 Low back pain M54.5 Right knee pain M25.561 Post-nasal drip R09.82 Sensorineural hearing loss of both ears H90.3 Chronic rhinitis J31.0 Hypothyroidism E03.9 Insomnia G47.00 Seborrheic keratoses L82.1 Depression F32.9 Elevated liver function tests 08/27/13 R94.5 Family history of malignant neoplasm of breast Z80.3 Gastroesophageal reflux disease K21.9 Low ferritin level 03/24/15 R79.0 Thyroid cyst 03/24/15 E04.1 Osteopenia 03/02/03 M85.80 Memory changes 12/15/15 R41.3 Hyperlipidemia 10/29/12 E78.5 Hiatal hernia K44.9 Essential hypertension 03/15/13 I10 Diverticulosis of colon without diverticulitis 09/28/11 K57.30 Diabetes mellitus 07/17/12 E11.9 Cervical arthritis M47.812 Arthritis of both knees 01/26/15 M17.0 Thrombocytosis D47.3 Medical History Medical History Abdominal mass (10/02/12) Abnormal mammogram 03/02/00 left breast=cyst;2001-right breast, per U/S at [facility] [place]-simple cysts, also a recent biopsy Abnormal mammography (03/02/00) Abnormal weight loss 02/14/12 Allergic rhinitis Cataract Chronic rhinitis Colon polyp Colon polyps hyperplastic polyps Degenerative joint disease of right knee TKA: 12/16/20 Depo-Medrol injection: 07/27/2020 Depressive disorder Depressive disorder Diabetes mellitus Diverticulosis Elevated platelet count (02/03/15) persistent and increasing referral to hemotology Colonoscopy,EGD, Bone marrow BX Family hx-breast malignancy grandmother,aunt and mother GERD (gastroesophageal reflux disease) GERD (gastroesophageal reflux disease) Hyperlipidemia Hypoferremia (09/03/15) Iron deficiency anemia 04/30/15; DR. CORRALES Iron deficiency anemia, unspecified Low ferritin (03/24/15) Low serum iron (09/03/15) NSAID induced gastritis Osteopenia Post zoster neuralgia Primary fibromyalgia syndrome Pulmonary emboli Pulmonary embolism 08/2016 Stress due to spouse with dementia (06/01/17) Stress due to spouse with dementia Surgical History Surgical History Abdominal hysterectomy HAS 1 OVARY BUNIONECTOMY 2006,2007 section Colonoscopy - IV Sedation (09/14/11) DR. JOYA-HYPERPLASTIC POLYPS; DIVERTICULOSIS EGD - IV Sedation 03/12/12 ; 02/2014 DR. CORRALES Excision, Lesion (07/20/17) right breast skin lesion - seborrrheic keratosis Extraction of cataract H/O abdominal hysterectomy H/O bilateral salpingectomy H/O cataract removal with insertion of prosthetic lens H/O section H/O esophagogastroduodenoscopy 04/03/11 Dr. Joya-2011, Dr. Corrales--02/2014 H/O knee surgery 12/11/14 repair of left medial meniscal tear History of bilateral salpingectomy History of cataract removal with insertion of prosthetic lens History of section History of tonsillectomy and adenoidectomy Meniscectomy 12/11/14; [facility]; LEFT PARTIAL KNEE S/P abdominal hysterectomy one ovary remains S/P bunionectomy 2006,2007 S/P total knee replacement 08/02/15 left SALPINGECTOMY B/L Status post bunionectomy Status post total knee replacement Tobacco Smoking/Tobacco Use Status: Former Tobacco Use Passive smoking exposure: Yes Second hand exposure: Yes Alcohol Alcohol Intake: current Alcohol intake frequency: a few times a month Alcohol type: wine Counseling provided: reduce to 2 or less/day Substance Use Substance use: Never Substance use type: does not use Vital Signs and Lab Results Vital Signs Most Recent Vital Signs in EMR: Most Recent Vital Signs Temp Pulse Resp BP Pulse Ox 37.1 C 83 16 129/86 97 07/06/22 10:52 07/06/22 10:52 07/06/22 10:52 07/06/22 10:52 07/06/22 10:52 Lab Results Blood Type / Crossmatch: No Data to Display Complete Blood Count: No Data to Display Complete Metabolic Panel: No Data to Display Liver Function Panel: No Data to Display Coagulation Panel: No Data to Display Cardiac Panel: No Data to Display Arterial Blood Gas: No Data to Display Venous Blood Gas: No Data to Display Pancreas Panel: No Data to Display Thyroid Panel: No Data to Display Infectious Disease: No Data to Display Blood Cultures: No Data to Display Toxicology Panel: No Data to Display Imaging and Studies Imaging and Studies Study information below may be from another EMR and interpreted by another provider. Please see original notes in EMR for more complete details. EKG Summary: //: Exam: Resting ECG Reason for Exam: Baseline EKG for surgery Patient Location: O HR:75 bpm ECG Measurements Heart Rate 75 AXIS OH 158 P 49 QRSd 90 QRS 30 QT 385 T52 QTc 432 Conclusion Sinus rhythm...normal P axis, V-rate 60- 99 Stress Test Summary: 06/2020: Stress ECG Conclusion 1. Resting electrocardiogram was normal 2. Patient exercised on the modified Jonas protocol and completed a workload of 7.05 METS limited by shortness of breath and knee pain 3. Normal heart rate and blood pressure response to exercise 4. The patient achieved 88% of predicted heart rate for age 5. There was no electrocardiographic evidence of myocardial ischemia Echocardiogram Summary: 04/23/2020: Conclusion Normal left ventricular wall thickness and chamber size. Estimated ejection fraction is 60%. There are no segmental wall motion abnormalities Normal right ventricular size and systolic function Both atria are normal in size The aortic valve is trileaflet, mildly sclerotic, with trace regurgitation Normal tricuspid valve, trace regurgitation, estimated RVSP is 31 mmHg Structurally normal mitral valve with mild regurgitation Normal pulmonic valve with trace regurgitation Mildly dilated ascending aorta, 3.57 cm Carotid Artery Summary:: 02/2015: CAROTID ULTRASOUND: Mild plaque is demonstrated in the carotid bulbs and origin of the ICA bilaterally. Tortuosity of the right internal carotid artery is identified. There is what appears to represent a right thyroid lobe cyst measuring up to 2.2 cm. in diameter. SUMMARY: No evidence of significant carotid stenosis. Please see the above discussion. Pulmonary Function Summary: 04/11/2022: Pulmonary Function Test Result Requesting Provider Roxy Mehta Indications: Cough and dyspnea Interpretation Spirometry: There is no airflow limitation. There is no significant bronchodilator response. Lung Volumes: Normal lung volumes Diffusion Capacity: Normal diffusion Airway Pressure: Normal airways resistance Impression Normal pulmonary function testing. Clinical Correlation therefore is recommended. Anesthesia Assessment and Plan Anesthesia History Personal History: No History of Anesthesia Complications Family History: No Family History of Anesthesia Complications Exercise Tolerance Exercise Tolerance: Metabolic Equivalents>4 Pertinent Negatives Pertinent Negatives: No Symptoms of GERD, No Major Cardiovascular Symptoms or Complaints and No Major Pulmonary Symptoms or Complaints Cardiac & Pulmonary Exam Cardiac Exam: Normal S1/S2 Heart Sounds Pulmonary Exam: Clear Bilateral Breath Sounds Implantable Cardiac Device Does patient have a Pacemaker or an ICD?: No Airway Exam Known Difficult Airway: No Mallampati Class: 2 Mouth Opening: Normal (> 3cm) Thyromental Distance: Greater than 3 cm Neck Range of Motion: Full ROM Neck Circumference: Normal Teeth Condition: Normal Dentition ASA Classification ASA Score: ASA 2 Emergency Case?: No NPO Status NPO Status: NPO Clears >2 hours, Solids >8 hours Anesthesia Plan Resuscitation Status: Full Code Anesthesia Technique: General Anesthesia Airway Planned: LMA Monitors Used: Standard Monitors
--- NOTE | 2022-07-06 12:10 | W.PREOPHP ---
Assessment and Plan Assessment and plan (1) Arthrofibrosis of total knee arthroplasty: Status: Acute (2) Painful total knee replacement, right: Status: Acute Assessment and plan: Patricia is an 81-year-old female who has ongoing synovitis, pain, and stiffness about the right knee after knee replacement. Given the failure of other nonoperative options I have offered an arthroscopic synovectomy. I have previously discussed at the office visit we had previously. I reviewed the risk of the procedure to include bleeding, infection, pain, stiffness, recurrence, need for repeat procedures. Despite these risk, she elects to proceed. History of Present Illness History of Present Illness Chief Complaint: Right Knee Synovitis and Fibrosis s/p TKA Narrative: Vania is an 81-year-old active female who has had some restricted motion and some pain around the knee after knee replacement surgery. Given the apparent synovitis despite aggressive physical therapy and continued exercise, I have offered arthroscopic synovectomy. She is here today for that procedure. She had no change to her story. She does feel that the motion may have gotten slightly better. However, she continues have pain over the posterior medial posterior lateral aspect of the knee with flexion primarily. No trauma. No instability. No issues with the wound. No fevers no chills. She has had no changes to her health. Review of Systems All systems reviewed & are unremarkable except as noted in HPI and below PFSH All Active Problems Sensorineural hearing loss (Acute) Wears hearing aid in both ears (Acute) Sinusitis (Acute) Chronic sinusitis of both maxillary sinuses (Acute) Asthma (Chronic) Bronchitis (Acute) Acute inflammation of sinus (Acute) Cough (Acute) Arthrofibrosis of total knee arthroplasty (Acute) Painful total knee replacement, right (Acute) Nasal mucosa dry (Acute) Laceration of left breast without foreign body (Acute) Osteopenia (Acute) Breast pain, right (Acute) Skin lesion of face (Acute) History of total right knee replacement (Acute 12/16/20) s/p R TKA 12/16/20 Elevated erythrocyte sedimentation rate (Acute) Pes anserinus bursitis of left knee (Acute) Patellofemoral arthralgia of right knee (Acute) Chronic anemia (Chronic) continue iron infusions until ferritin over 100 Pulmonary hypertension (Acute) Pulmonary emboli (Acute) Shortness of breath (Acute) Anemia (Acute) Fatigue (Acute) Low back pain (Acute) Right knee pain (Acute) Post-nasal drip (Acute) Sensorineural hearing loss of both ears (Acute) Chronic rhinitis (Acute) Hypothyroidism (Chronic) Insomnia (Acute) Seborrheic keratoses (Acute) Depression (Chronic) Family history of malignant neoplasm of breast (Chronic) Gastroesophageal reflux disease (Chronic) Low ferritin level (Chronic 03/24/15) Thyroid cyst (Chronic 03/24/15) on carotid us 2+cm cyst Osteopenia (Chronic 03/02/03) normal Vitamin D level T-scores -1.8, -1.1, -0.8 Memory changes (Chronic 12/15/15) MMSE Hyperlipidemia (Chronic 10/29/12) Hiatal hernia (Chronic) Essential hypertension (Chronic 03/15/13) Diverticulosis of colon without diverticulitis (Chronic 09/28/11) Diabetes mellitus (Chronic 07/17/12) Cervical arthritis (Chronic) with foraminal encroachment chiro care Arthritis of both knees (Chronic 01/26/15) Thrombocytosis (Chronic) Medical History Abdominal mass (10/02/12) Abnormal mammogram 03/02/00 left breast=cyst;2001-right breast, per U/S at [facility] [place]-simple cysts, also a recent biopsy Abnormal mammography (03/02/00) Abnormal weight loss 02/14/12 Allergic rhinitis Cataract Chronic rhinitis Colon polyp Colon polyps hyperplastic polyps Degenerative joint disease of right knee TKA: 12/16/20 Depo-Medrol injection: 07/27/2020 Depressive disorder Depressive disorder Diabetes mellitus Diverticulosis Elevated platelet count (02/03/15) persistent and increasing referral to hemotology Colonoscopy,EGD, Bone marrow BX Family hx-breast malignancy grandmother,aunt and mother GERD (gastroesophageal reflux disease) GERD (gastroesophageal reflux disease) Hyperlipidemia Hypoferremia (09/03/15) Iron deficiency anemia 04/30/15; DR. CORRALES Iron deficiency anemia, unspecified Low ferritin (03/24/15) Low serum iron (09/03/15) NSAID induced gastritis Osteopenia Post zoster neuralgia Primary fibromyalgia syndrome Pulmonary emboli Pulmonary embolism 08/2016 Stress due to spouse with dementia (06/01/17) Stress due to spouse with dementia Surgical History Abdominal hysterectomy HAS 1 OVARY BUNIONECTOMY 2006,2007 section Colonoscopy - IV Sedation (09/14/11) DR. JOYA-HYPERPLASTIC POLYPS; DIVERTICULOSIS EGD - IV Sedation 03/12/12 ; 02/2014 DR. CORRALES Excision, Lesion (07/20/17) right breast skin lesion - seborrrheic keratosis Extraction of cataract H/O abdominal hysterectomy H/O bilateral salpingectomy H/O cataract removal with insertion of prosthetic lens H/O section H/O esophagogastroduodenoscopy 04/03/11 Dr. Joya-2011, Dr. Corrales--02/2014 H/O knee surgery 12/11/14 repair of left medial meniscal tear History of bilateral salpingectomy History of cataract removal with insertion of prosthetic lens History of section History of tonsillectomy and adenoidectomy Meniscectomy 12/11/14; [facility]; LEFT PARTIAL KNEE S/P abdominal hysterectomy one ovary remains S/P bunionectomy 2006,2007 S/P total knee replacement 08/02/15 left SALPINGECTOMY B/L Status post bunionectomy Status post total knee replacement Family History Mother , 83 Renal failure syndrome Essential hypertension Depression Heart disease Hyperlipidemia Breast cancer Father , 82 Essential hypertension Depression Heart disease Hyperlipidemia Stroke Sister Essential hypertension Depression Brother , MVA at age 21. No problems noted. Maternal Grandfather , 78 Stroke Paternal Grandfather Heart disease Maternal Grandmother , 93 Heart disease Breast cancer Paternal Grandmother No problems noted. Sister Depression Son No problems noted. Social History Smoking/Tobacco Use Status: Former Tobacco Use tobacco type: cigarettes Quit Date: 04/03/00 Tobacco: How many years used: 35 Second Hand Exposure: Yes Smoking risk assessment performed?: Yes Alcohol Intake: current Alcohol Intake frequency: a few times a month Alcohol type: wine Counseling provided: reduce to 2 or less/day Drug use: Never Substance use type: does not use Counseling given: No Caregiver/Support person: No Household members: none Housing: house Communication Needs: Hard of Hearing and Corrective Lenses Do you need help understanding health information?: Rarely Pets and animals: No Sexually active: No Do you think of yourself as: straight/heterosexual Current gender identity: female What is your relationship status?: How often do you talk on the phone with friends or family?: three or more times per week How often do you get together with friends or relatives?: twice per week How often do you attend moravian or bahai services?: decline to answer Do you belong to any clubs or organized social groups?: yes Panel score (0-1 are the most socially isolated patients): 2 What type of physical activity do you participate in: walking Duration: 30-45 minutes/day Frequency: 5-6 times per week Corinna/Mandaen: none Special corinna needs: No Seatbelt use: always Helmet use: No Drive intox or ride w/intox otr company truck driver: No Do you feel safe at home: Yes Additional Social history: lives alone Meds Allergies and Home Medications Allergies Allergy/AdvReac Type Severity Reaction Status Date / Time bone cement Allergy Severe Verified 07/05/22 11:57 doxycycline Allergy PRURITIS Verified 06/06/22 10:54 Home Medications Medication Instructions Recorded Confirmed Type cholecalciferol (vitamin D3) 50 2,000 unit PO DAILY 07/28/16 07/06/22 History mcg (2,000 unit) capsule (Vitamin D3) Ez Tears 2 tab PO DAILY 06/01/17 07/06/22 History levothyroxine 50 mcg tablet 50 mcg PO DAILY #90 tabs 07/12/21 07/06/22 Rx (Levoxyl) omeprazole 20 mg capsule,delayed 20 mg PO HS #90 caps 07/12/21 07/06/22 Rx release apixaban 2.5 mg tablet 2.5 mg PO BID #180 tabs 11/12/21 07/05/22 Rx estradiol 10 mcg vaginal tablet 10 mcg vaginal .three times weekly 01/13/22 07/06/22 Rx (Yuvafem) #36 tabs glipizide 5 mg tablet, extended 5 mg PO DAILY #90 tabs 01/13/22 07/06/22 Rx release 24 hr estradiol 0.01% (0.1 mg/gram) 1 g vaginal .twice weekly #42.5 03/22/22 07/06/22 Rx vaginal cream grams mupirocin 2 % topical ointment 1 applic topical BID PRN 03/22/22 07/06/22 History losartan 100 mg tablet 100 mg PO DAILY #90 tabs 06/20/22 07/06/22 Rx lipase 3,000-protease 1 cap PO DIRECTED 07/05/22 07/06/22 History 9,500-amylase 15,000 unit capsule, delayed rel (Creon) Exam Resp Effort & Inspection: normal respiratory effort Auscultation: clear to auscultation bilaterally Cardio Rate: regular rate Rhythm: regular rhythm Extrem Other: Incision over the right knee is well-healed. No signs of infection. No erythema. There is a mild bogginess of the right knee. No effusion is detected. There is some pain to palpation over the medial lateral aspects of the knee, more posteriorly and anteriorly. No crepitus with range of motion. However, there is increase in pain with passive flexion. Range of motion is approximately 5 to 95 degrees with some effort about 105 degrees as possible. Results Last Vital Signs Temp 37.1 C 07/06/22 10:52 Pulse 83 07/06/22 10:52 Resp 16 07/06/22 10:52 BP 129/86 07/06/22 10:52 Pulse Ox 97 07/06/22 10:52
[2022-07-06] MEDS: ceFAZolin 2 GM/50 ML BAG IVPB (12:13)
--- NOTE | 2022-07-06 12:29 | W.PM.DSUDISC ---
Date of service: 07/06/22 Time of Service: 12:29 Discharge Plan Disposition Patient Disposition: Home Condition: Good Discharge Details Reason For Visit: R knee arthroscopy Attending Provider: Timmy Antunez Primary Care Provider: Roxy Mehta Home Meds and New Rx's Prescriptions: New hydrocodone-acetaminophen 5-325 mg tablet 1 tab PO Q6H PRN (Reason: pain) Qty: 12 0RF acetaminophen 500 mg tablet 1,000 mg PO TID Qty: 90 0RF ibuprofen 600 mg tablet 600 mg PO TID PRN (Reason: pain) Qty: 90 0RF Continued mupirocin 2 % ointment 1 applic topical BID PRN estradiol 0.01 % (0.1 mg/gram) cream 1 g vaginal .twice weekly Qty: 42.5 5RF levothyroxine [Levoxyl] 50 mcg tablet 50 mcg PO DAILY Qty: 90 4RF omeprazole 20 mg capsule,delayed release(DR/EC) 20 mg PO HS Qty: 90 3RF cholecalciferol (vitamin D3) [Vitamin D3] 2,000 UNIT capsule 2,000 unit PO DAILY EZ Tears 2 tab PO DAILY apixaban 2.5 mg tablet 2.5 mg PO BID Qty: 180 6RF estradiol [Yuvafem] 10 mcg tablet 10 mcg VG .three times weekly Qty: 36 4RF glipizide 5 mg tablet extended release 24hr 5 mg PO DAILY Qty: 90 5RF losartan 100 mg tablet 100 mg PO DAILY Qty: 90 3RF Creon 3,000-9,500- 15,000 unit capsule,delayed release(DR/EC) 1 cap PO DIRECTED Discharge Instructions Stand Alone Forms: [facility] Referrals: Timmy Antunez MD [ [facility] STAFF PHYSICIAN] - Equipment/Supplies: Partial Weight Bearing Crutches Activity:: Activity as Tolerated Remove Dressings/Wound Care:: 72 hours Shower/Bathe:: 72 hours Diet:: As Tolerated Discharge Orders Discharge Orders: Discharge Order (Routine); Ordered 07/06/22 Ordered By: Michele Bartholomew DS: Diagnosis Discharge Diagnosis (1) Arthrofibrosis of total knee arthroplasty: Status: Acute (2) Painful total knee replacement, right: Status: Acute
[2022-07-06] MEDS: EPINEPHrine 30 MG/30 ML VIAL (12:48)
[2022-07-06] MEDS: Bupivacaine 0.5% Pres-Free 30 ML VIAL (12:48)
[2022-07-06] MEDS: fentaNYL 100 MCG/2 ML VIAL IVP (13:34)
--- NOTE | 2022-07-06 13:48 | W.ANESPOSTOP ---
Postoperative Evaluation Date, Time and Location Date Performed: 07/06/22 Time Performed: 13:48 Patient Location: PACU Vital Signs Most Recent Imported Vital Signs: Most Recent Vital Signs Temp Pulse Resp BP Pulse Ox 36.4 C L 73 16 161/72 H 98 07/06/22 13:37 07/06/22 13:37 07/06/22 13:37 07/06/22 13:37 07/06/22 13:37 Pain Score Most Recent Pain Score: Most Recent Pain Score Pain Level 3 07/06/22 13:37 Assessment Mental Status: Awake (Alert & Oriented to Patient Baseline) Airway and Respiratory Function: Patent airway with normal (patient baseline) respiratory exam Cardiovascular Function: Hemodynamically Stable Hydration Status: Adequately Hydrated Nausea & Vomiting: No Nausea or Vomiting Pain: Pain is tolerable per patient Peripheral Nerve Block: Patient did not receive a nerve block
[2022-07-06] MEDS: Acetaminophen 325 MG TAB 650 MG PO (14:22)
--- NOTE | 2022-07-06 17:00 | ROE_ITS ---
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 Nonoperative measures were exhausted but disability due to lack of motion persisted. I discussed knee arthroscopy with synovectomy with maniuplation with the patient. I reviewed the risks of the procedure to include, but not limited to, bleeding, infection, pain, continued stiffness, recurrence, blood clot. Despite these risks, the patient elected to proceed. Findings: There were dense adhesions seen within the suprapatellar space. There is also frayed scar tissue seen adjacent the patella with notable synovitis and irritated tissues within the medial and lateral gutters. A small amount of interposed soft tissue was seen between the medial aspect of the joint as well as the lateral aspect. This was resected. Procedure Description: Patricia was greeted in the preoperative holding area where the correct side was identified and marked. The consent was reviewed with the patient and signed. The history and physical was updated. All questions were answered. She was taken back to the operating room. The patient was placed into the supine position on the operating room table. All bony prominences were well padded. Prophylactic antibiotics in the form of Cefazolin were administered. The right leg was then prepped with Chloraprep and draped in a standard fashion with stockinette and extremity drape. A timeout to confirm correct identity, side and site, procedure, allergies, anesthesia, and medical concerns was perfor med. The leg was placed into a pneumatic leg johnson, SPIDER2. A standard lateral portal was made at the lateral border of the patella tendon in line with the inferior pole of the patella, soft spot. The skin and deep tissue was incised sharply and the blunt trochar was inserted atraumatically. At this point had visualization of the femoral component. A superolateral portal was then established with spinal needle localization just superior and lateral to the patella. A knife was taken down through the skin and soft tissue to enter the knee joint. Starting in the superior compartment above the femoral component and anterior to the femur I released all scarring between the anterior femoral synovium and the overlying extensor mechanism. This was taken through all of any noticeable scar tissue until the superior patellar pouch was fully released and mobile. This resection was carried out mostly with electrocautery as well as shaver. Once this was released fully from lateral to medial superiorly I then continue working down the lateral gutter. All scar tissue in the lateral gutter was released so there is normal space and movement between the capsular tissues and the edge of the femoral component and femur. This was taken down through the lateral gutter such that I was able to identify the polyethylene to its posterior corner. Once again, all scar tissue in this area was resected so the polyethylene was easily visible. There was some notable inflamed tissue and synovitis seen in this region. I utilized both electrocautery and a shaver to debride this area until is able to visualize the entire lateral gutter all the way to the posterior corner.. After the synovectomy, there is no interposed tissue in the back and the polyethylene was identified. I then continued to work anteriorly. To continue the synovectomy from the lateral compartment to the anterior compartment into the medial compartment, I placed a medial portal under spinal needle localization. Once this was in place it became another working portal and I continued the synovectomy through the anterior compartment to the medial compartment. Once again, I freed up the medial gutter so I was able to visualize the polyethylene from the anterior posterior margins. There was notable synovitis in this region with frayed tissue and some interposed soft tissue making visualization of the periphery challenging. Using both electrocautery and shaver an aggressive synovectomy was performed of this area from anterior to posterior. There is no interposed tissue after full synovectomy was performed. Adhesions between the capsule and the femur were released. This was continued up the medial gutter until it met up with the releases performed previously in the superior compartment. Any remnant scar tissue from around the patella was then removed with a shaver and electrocautery. The arthroscope was brought back into the suprapatellar pouch and the leg was in full extension. The knee was thoroughly irrigated with the arthroscopic fluid on high flow and pressure. Inflow was stopped and excess fluid was removed. The wounds were closed with 4-0 Nylon. 0.5% bupivacaine was injected around the portal sites and into the knee. The wounds were dressed with Xeroform, 4x4 gauze, ABD pad, Kerlix and an MARY wrap. A cryo-cuff was applied. The patient tolerated the procedure well and was recovered in the PACU area in a stable condition suffering no known complication..
== END 2022-07-06 15:24 | disposition home or self-care (01) ==
PROVIDERS: PCP Family Medicine; Visit Provider Student in an Organized Health Care Education/Training Program
PROC: (CPT 29870; principal; 2022-07-06 12:30)
DX: T84.82XA Fibrosis due to internal orthopedic prosthetic devices, implants and grafts, initial encounter (principal); T84.84XA Pain due to internal orthopedic prosthetic devices, implants and grafts, initial encounter; Z96.651 Presence of right artificial knee joint
CPT/HCPCS: 29876; J0690; J1100; J1885; J2405; J2704; J3010

== ENCOUNTER → 2022-07-18 11:11 | Outpatient (BNVA) | payer MEDICARE, SELFPAY | PROVIDERS: PCP Family Medicine; Referring Provider Family Medicine; Visit Provider Student in an Organized Health Care Education/Training Program | DX: Z47.1 Aftercare following joint replacement surgery (principal); T84.82XA Fibrosis due to internal orthopedic prosthetic devices, implants and grafts, initial encounter; Z96.651 Presence of right artificial knee joint ==

== ENCOUNTER 2022-08-11 02:32 | Outpatient (CLI) | payer MEDICARE, SELFPAY ==
[2022-08-11 12:17] LABS: HCT 36.1 % (36.0-46.0); HGB 11.5 g/dL (11.2-15.7); MCH 29.7 pg (27.0-33.0); MCHC 31.9 % (32.0-36.0); MCV 93 fL (80-95); MPV 9.4 fL (8.0-11.0); Platelet Count 518 10^3/uL (130-400); RBC 3.87 10^6/uL (3.93-5.22); RDW-SD 47.9 fL; WBC 6.72 10^3/uL (4.4-10.8)
[2022-08-11 12:43] LABS: Hemoglobin A1C 6.5 % (<5.7)
[2022-08-11 12:49] LABS: Iron 48 ug/dL (50-170)
[2022-08-11 13:14] LABS: ALT 26 U/L (14-59); AST 16 U/L (15-37); Albumin 3.4 g/dL (3.4-5.0); Alkaline Phosphatase 117 U/L (46-116); Anion Gap 9.1 mmol/L (3-11); BUN 18 mg/dL (7-18); Bilirubin, Total 0.2 mg/dL (0.2-1.0); CO2 27.9 mmol/L (21.0-32.0); CREATININE 0.9 mg/dL (0.55-1.02); Calcium 8.7 mg/dL (8.5-10.1); Chloride 104 mmol/L (98-107); Estimated GFR 64.63 (mL/min/1.73m2); Ferritin 56 ng/mL (8-252); Glucose 219 mg/dL (74-106); Potassium 3.9 mmol/L (3.5-5.1); Sodium 141 mmol/L (136-145); TSH (W/Ref FT4) 2.25 uIU/mL (0.36-3.74); Total Protein 6.9 g/dL (6.4-8.2); Vitamin B12 508 pg/mL (193-986)
== END 2022-08-11 02:33 | disposition home or self-care (01) ==
LOC: LOS 02:33
PROVIDERS: PCP Family Medicine; Visit Provider Family Medicine
DX: E11.9 Type 2 diabetes mellitus without complications (principal); Z01.818 Encounter for other preprocedural examination; D64.9 Anemia, unspecified; E03.9 Hypothyroidism, unspecified; E78.5 Hyperlipidemia, unspecified; I10 Essential (primary) hypertension; I27.20 Pulmonary hypertension, unspecified; K21.9 Gastro-esophageal reflux disease without esophagitis; R53.83 Other fatigue; R41.9 Unspecified symptoms and signs involving cognitive functions and awareness
CPT/HCPCS: 36415; 80053; 85027; 82607; 82728; 83036; 83540; 84443

== ENCOUNTER → 2022-08-15 13:45 | Outpatient (BNVA) | payer MEDICARE, SELFPAY | PROVIDERS: PCP Family Medicine; Referring Provider Family Medicine | DX: Z47.1 Aftercare following joint replacement surgery (principal); T84.82XA Fibrosis due to internal orthopedic prosthetic devices, implants and grafts, initial encounter; Z96.651 Presence of right artificial knee joint ==

== ENCOUNTER 2022-08-30 03:20 | Outpatient (RCR) | payer MEDICARE, SELFPAY ==
[2022-08-16] MEDS: SODIUM FER. GLUC./SUC. 125 MG in Normal Saline 100 ML 110 MG IVPB (10:02)
[2022-08-16] MEDS: Normal Saline Flush 10 ML SYR IVP (10:03)
[2022-08-23] MEDS: Normal Saline Flush 10 ML SYR IVP (11:12)
[2022-08-23] MEDS: SODIUM FER. GLUC./SUC. 125 MG in Normal Saline 100 ML 110 MG IVPB (11:12)
[2022-08-30] MEDS: SODIUM FER. GLUC./SUC. 125 MG in Normal Saline 100 ML 110 MG IVPB (10:30)
[2022-08-30] MEDS: Normal Saline Flush 10 ML SYR IVP (10:34)
== END 2022-08-31 23:59 | disposition home or self-care (01) ==
LOC: INF 03:20
PROVIDERS: PCP Family Medicine; Visit Provider Family Medicine
DX: D50.9 Iron deficiency anemia, unspecified (principal)
CPT/HCPCS: 96365; J2916

== ENCOUNTER 2022-09-27 01:26 | Outpatient (CLI) | payer MEDICARE, SELFPAY ==
--- NOTE | 2022-09-27 06:45 | DI.RAD_ITS ---
Exam(s) XR SHOULDER RT COMPLETE 2+V EXAM: XR SHOULDER RT COMPLETE 2+V CLINICAL HISTORY: b/l shoulder pain,m25.519. TECHNIQUE: 2D digital imaging was performed. Five views. COMPARISON: No exams were available for comparison FINDINGS: BONES: No acute fracture is present. No bony destructive lesion is seen. Degenerative cysts in the h umeral head. JOINTS: No dislocation present. [id number] narrowing of the glenohumeral joint and mild periar ticular spurring. Mild spurring at the AC joint. SOFT TISSUE: Normal. IMPRESSION: Moderate degenerative changes. DATA REPOSITORY: RADIATION DOSE DELIVERED:
--- NOTE | 2022-09-27 06:45 | DI.RAD_ITS ---
Exam(s) XR SHOULDER LT COMPLETE 2+V EXAM: XR SHOULDER LT COMPLETE 2+V CLINICAL HISTORY: b/l shoulder pain,m25.519. TECHNIQUE: 2D digital imaging was performed. Five views. COMPARISON: CR XR SHOULDER RT COMPLETE 2+V from 09/27/2022 FINDINGS: BONES: No acute fracture is present. No bony destructive lesion is seen. Small subchondral cyst in t he superior humeral head. JOINTS: No dislocation present. Moderate to severe narrowing of the glenohumeral joint. Spurring at the inferior glenoid and humeral head. No significant AC joint spurring. Some spurring is noted at the undersurface of the acromion. SOFT TISSUE: Normal. IMPRESSION: Moderate to severe degenerative changes of the glenohumeral joint. DATA REPOSITORY: RADIATION DOSE DELIVERED:
== END 2022-09-27 01:46 ==
LOC: DI 01:26
PROVIDERS: PCP Family Medicine; Visit Provider Family Medicine
DX: M19.011 Primary osteoarthritis, right shoulder (principal); M19.012 Primary osteoarthritis, left shoulder
CPT/HCPCS: 73030

== ENCOUNTER 2022-10-28 01:23 | Outpatient (CLI) | payer MEDICARE, SELFPAY ==
[2022-10-28 12:19] LABS: HCT 40.4 % (36.0-46.0); HGB 12.7 g/dL (11.2-15.7); MCH 28.6 pg (27.0-33.0); MCHC 31.4 % (32.0-36.0); MCV 91 fL (80-95); MPV 9.3 fL (8.0-11.0); Platelet Count 585 10^3/uL (130-400); RBC 4.44 10^6/uL (3.93-5.22); RDW 13.3 % (11.7-14.6); RDW-SD 44.7 fL; WBC 6.45 10^3/uL (4.4-10.8)
[2022-10-28 12:36] LABS: Hemoglobin A1C 6.3 % (<5.7)
[2022-10-28 12:45] LABS: ALT 23 U/L (14-59); AST 16 U/L (15-37); Albumin 3.5 g/dL (3.4-5.0); Alkaline Phosphatase 132 U/L (46-116); Anion Gap 11.3 mmol/L (3-11); BUN 15 mg/dL (7-18); Bilirubin, Total 0.2 mg/dL (0.2-1.0); CO2 26.7 mmol/L (21.0-32.0); CREATININE 0.9 mg/dL (0.55-1.02); Chloride 102 mmol/L (98-107); Estimated GFR 64.63 (mL/min/1.73m2); Ferritin 22 ng/mL (8-252); Glucose 129 mg/dL (74-106); Potassium 4.4 mmol/L (3.5-5.1); Sodium 140 mmol/L (136-145); Total Protein 7.4 g/dL (6.4-8.2)
[2022-10-28 12:48] LABS: Iron 268 ug/dL (50-170)
== END 2022-10-28 01:24 | disposition home or self-care (01) ==
LOC: LOS 01:23
PROVIDERS: PCP Family Medicine; Visit Provider Family Medicine
DX: D64.9 Anemia, unspecified (principal); E11.9 Type 2 diabetes mellitus without complications; E03.9 Hypothyroidism, unspecified; R79.0 Abnormal level of blood mineral
CPT/HCPCS: 36415; 80053; 85027; 82728; 83036; 83540

== ENCOUNTER 2022-11-01 02:14 | Outpatient (RCR) | payer MEDICARE, SELFPAY ==
[2022-11-01] MEDS: Normal Saline Flush 10 ML SYR IVP (10:34)
[2022-11-01] MEDS: SODIUM FER. GLUC./SUC. 125 MG in Normal Saline 100 ML 110 MG IVPB (10:35)
== END 2022-12-01 23:59 | disposition home or self-care (01) ==
LOC: INF 02:14
PROVIDERS: PCP Family Medicine; Visit Provider Family Medicine
DX: D50.9 Iron deficiency anemia, unspecified (principal)
CPT/HCPCS: 96365; J2916

== ENCOUNTER → 2022-12-30 18:34 | Outpatient (CLI) | payer MEDICARE, SELFPAY ==
--- NOTE | 2022-12-30 18:45 | DI.RAD_ITS ---
Exam(s) XR CHEST 2V PA LATERAL EXAM: XR CHEST 2V PA LATERAL CLINICAL HISTORY: evaluate pathology. TECHNIQUE: 2D digital imaging was performed. COMPARISON: CR XR CHEST 2V PA LATERAL from 04/11/2022 FINDINGS: 2 views: Heart size is normal. The mediastinum is not widened. Prominent retrocardiac hiatal hernia is again noted. However, there is also atelectasis now evident in both lung bases, more so on the right side where there may be developing infiltrate. No pleural e ffusions. No pulmonary edema. IMPRESSION: Atelectasis with possible developing infiltrate right lung base. No pleural effusions. Large hiatal hernia again noted. DATA REPOSITORY: RADIATION DOSE DELIVERED:
--- NOTE | 2022-12-30 19:31 | DI.VRAD_ITS ---
PROCEDURE INFORMATION: Exam: XR Chest Exam date and time: 12/30/2022 7:01 PM Age: 82 years old Clinical indication: Evaluate pathology TECHNIQUE: Imaging protocol: Radiologic exam of the chest. Views: 2 views. COMPARISON: CR XR CHEST 2V PA LATERAL 04/11/2022 2:13 PM FINDINGS: Lungs: No alveolar infiltrate. Bibasilar linear parenchymal scarring or subsegmental collapse / atelectasis. Pleural spaces: No pleural fluid collection. No pneumothorax. Heart/Mediastinum: Normal heart size. Calcific thoracic aorta. Hiatal hernia. Bones/joints: Spinal degenerative changes. IMPRESSION: 1. No acute infiltrate. 2. Bibasilar linear parenchymal scarring or subsegmental collapse / atelectasis. 3. Hiatal hernia. Dictated and Authenticated by: Tre Salinas MD. Ordering:ROSALBA Song MD
== END ==
PROVIDERS: PCP Family Medicine; Visit Provider Nurse Practitioner Family
DX: J98.11 Atelectasis (principal); R91.8 Other nonspecific abnormal finding of lung field
CPT/HCPCS: 71046

== ENCOUNTER 2022-12-30 21:15 | Outpatient (REF) | payer MEDICARE, SELFPAY ==
[2022-12-30 21:32] LABS: Abs Immature Grans 0.08 10^3/uL (0.0-0.06); Absolute Lymphocyte Count 2.03 10^3/uL (1.2-3.4); Absolute Monocyte Count 0.56 10^3/uL (0.1-0.8); Basophils % 0.3; HCT 39.9 % (36.0-46.0); HGB 12.5 g/dL (11.2-15.7); Immature Grans % 0.7; Lymphocytes % 17.6; MCH 26.1 pg (27.0-33.0); MCHC 31.3 % (32.0-36.0); MCV 83 fL (80-95); MPV 9.4 fL (8.0-11.0); Monocytes % 4.9; Neutrophils % 76.5; Platelet Count 628 10^3/uL (130-400); RBC 4.79 10^6/uL (3.93-5.22); RDW 14.3 % (11.7-14.6); RDW-SD 43.3 fL; WBC 11.51 10^3/uL (4.4-10.8)
[2022-12-30 21:34] LABS: Absolute Basophil Count 0.03 10^3/uL (0.0-0.2); Absolute Neutrophil Count 8.81 10^3/uL (1.2-6.7)
[2022-12-30 21:36] LABS: Iron 32 ug/dL (50-170); Total Iron Binding Capacity 412 ug/dL (250-450)
[2022-12-30 21:48] LABS: Anion Gap 11.5 mmol/L (3-11); BUN 21 mg/dL (7-18); CO2 24.5 mmol/L (21.0-32.0); CREATININE 0.9 mg/dL (0.55-1.02); Calcium 9.6 mg/dL (8.5-10.1); Chloride 97 mmol/L (98-107); Estimated GFR 64.23 (mL/min/1.73m2); Ferritin 21 ng/mL (8-252); Glucose 156 mg/dL (74-106); NT-proBNP 70 pg/mL (<300); Potassium 4.6 mmol/L (3.5-5.1); Sodium 133 mmol/L (136-145)
== END 2022-12-30 21:16 | disposition home or self-care (01) ==
LOC: LBN 21:15
PROVIDERS: PCP Family Medicine; Visit Provider Nurse Practitioner Family
DX: D64.9 Anemia, unspecified (principal); R09.89 Other specified symptoms and signs involving the circulatory and respiratory systems; R06.02 Shortness of breath; R06.2 Wheezing
CPT/HCPCS: 80048; 82728; 83540; 83550; 83880; 85025

== ENCOUNTER 2023-01-25 03:12 | Outpatient (RCR) | payer MEDICARE, SELFPAY ==
[2023-01-11] MEDS: SODIUM FER. GLUC./SUC. 125 MG in Normal Saline 100 ML 110 MG IVPB (09:07)
[2023-01-11] MEDS: Normal Saline Flush 10 ML SYR IVP (09:08)
[2023-01-18] MEDS: SODIUM FER. GLUC./SUC. 125 MG in Normal Saline 100 ML 110 MG IVPB (10:11)
[2023-01-18] MEDS: Normal Saline Flush 10 ML SYR IVP (10:12)
[2023-01-25] MEDS: SODIUM FER. GLUC./SUC. 125 MG in Normal Saline 100 ML 110 MG IVPB (10:13)
[2023-01-25] MEDS: Normal Saline Flush 10 ML SYR IVP (10:14)
== END 2023-01-31 23:59 | disposition home or self-care (01) ==
LOC: INF 03:12
PROVIDERS: PCP Family Medicine; Visit Provider Family Medicine
DX: D50.9 Iron deficiency anemia, unspecified (principal)
CPT/HCPCS: 96365; J2916

== ENCOUNTER 2023-02-09 02:15 | Outpatient (CLI) | payer MEDICARE, SELFPAY ==
[2023-02-09 13:02] LABS: Ferritin 157 ng/mL (8-252)
== END 2023-02-09 02:16 | disposition home or self-care (01) ==
LOC: LOS 02:16
PROVIDERS: PCP Family Medicine; Visit Provider Family Medicine
DX: D64.9 Anemia, unspecified (principal)
CPT/HCPCS: 36415; 82728

== ENCOUNTER 2023-03-20 02:55 | Outpatient (CLI) | payer MEDICARE, SELFPAY ==
[2023-03-20 12:43] LABS: HCT 41.8 % (36.0-46.0); HGB 13.4 g/dL (11.2-15.7); MCH 28.4 pg (27.0-33.0); MCHC 32.1 % (32.0-36.0); MCV 89 fL (80-95); MPV 9.7 fL (8.0-11.0); Platelet Count 503 10^3/uL (130-400); RBC 4.72 10^6/uL (3.93-5.22); RDW 16.9 % (11.7-14.6); RDW-SD 55.5 fL; WBC 7.17 10^3/uL (4.4-10.8)
[2023-03-20 13:07] LABS: Hemoglobin A1C 6.3 % (<5.7)
[2023-03-20 13:16] LABS: ALT 25 U/L (14-59); AST 16 U/L (15-37); Albumin 3.4 g/dL (3.4-5.0); Alkaline Phosphatase 130 U/L (46-116); Anion Gap 10.1 mmol/L (3-11); BUN 21 mg/dL (7-18); Bilirubin, Total 0.2 mg/dL (0.2-1.0); CO2 25.9 mmol/L (21.0-32.0); Calcium 9.1 mg/dL (8.5-10.1); Calculated LDL 194 mg/dL (<100); Chloride 106 mmol/L (98-107); Cholesterol 291 mg/dL (<200); Ferritin 50 ng/mL (8-252); Glucose 113 mg/dL (74-106); HDL Cholesterol 68 mg/dL (40-60); Potassium 4.2 mmol/L (3.5-5.1); Sodium 142 mmol/L (136-145); Total Protein 7.1 g/dL (6.4-8.2); Triglyceride 148 mg/dL (<150)
[2023-03-21 13:24] LABS: COMMENT (LAB VIEW ONLY) 145.53 mg/dL; Microalb ug/mg Crea 4.5 ug/mg Cr
== END 2023-03-20 02:56 | disposition home or self-care (01) ==
LOC: LOS 02:55
PROVIDERS: PCP Family Medicine; Visit Provider Family Medicine
DX: E03.9 Hypothyroidism, unspecified; E11.9 Type 2 diabetes mellitus without complications; I10 Essential (primary) hypertension
CPT/HCPCS: 36415; 80053; 80061; 85027; 82043; 82570; 82728; 83036; 84443

== ENCOUNTER 2023-05-03 03:22 | Outpatient (RCR) | payer MEDICARE, SELFPAY ==
[2023-04-12] MEDS: Normal Saline Flush 10 ML SYR IVP (13:25)
[2023-04-12] MEDS: SODIUM FER. GLUC./SUC. 125 MG in Normal Saline 100 ML 110 MG IVPB (13:25)
[2023-04-19] MEDS: Normal Saline Flush 10 ML SYR IVP (13:21)
[2023-04-19] MEDS: SODIUM FER. GLUC./SUC. 125 MG in Normal Saline 100 ML 110 MG IVPB (13:21)
[2023-04-26] MEDS: SODIUM FER. GLUC./SUC. 125 MG in Normal Saline 100 ML 110 MG IVPB (13:34)
[2023-04-26] MEDS: Normal Saline Flush 10 ML SYR IVP (13:35)
[2023-05-03] MEDS: SODIUM FER. GLUC./SUC. 125 MG in Normal Saline 100 ML 110 MG IVPB (13:11)
[2023-05-03] MEDS: Normal Saline Flush 10 ML SYR IVP (13:11)
== END 2023-05-03 23:59 | disposition home or self-care (01) ==
LOC: INF 03:22
PROVIDERS: PCP Family Medicine; Visit Provider Family Medicine
DX: D64.9 Anemia, unspecified (principal)
CPT/HCPCS: 96365; J2916

== ENCOUNTER 2023-05-03 16:37 | Outpatient (REF) | payer MEDICARE, SELFPAY | END 2023-05-03 16:38 | disposition home or self-care (01) | LOC: LBN 16:37 | PROVIDERS: Visit Provider Physician Assistant | DX: J02.9 Acute pharyngitis, unspecified (principal) | CPT/HCPCS: 87070 ==

== ENCOUNTER 2023-06-13 12:59 | Outpatient (CLI) | payer MEDICARE, SELFPAY ==
[2023-06-13 13:10] LABS: Ferritin 177 ng/mL (8-252)
== END 2023-06-13 13:00 | disposition home or self-care (01) ==
LOC: LOS 12:59
PROVIDERS: PCP Family Medicine; Visit Provider Family Medicine
DX: D50.9 Iron deficiency anemia, unspecified (principal)
CPT/HCPCS: 36415; 82728

== ENCOUNTER 2023-08-03 05:05 | Outpatient (CLI) | payer MEDICARE, SELFPAY ==
[2023-08-03 12:55] LABS: Ferritin 109 ng/mL (8-252)
== END 2023-08-03 05:06 | disposition home or self-care (01) ==
LOC: LOS 05:06
PROVIDERS: PCP Family Medicine; Visit Provider Family Medicine
DX: D50.9 Iron deficiency anemia, unspecified (principal)
CPT/HCPCS: 36415; 82728

== ENCOUNTER → 2023-09-05 03:04 | Outpatient (CLI) | payer MEDICARE, SELFPAY ==
--- NOTE | 2023-09-05 07:00 | DI.CT_ITS ---
Exam(s) CT HEAD WO EXAM: CT HEAD WO CLINICAL HISTORY: loss of consciousness from fall; on anticoagulation, head injury/trauma. TECHNIQUE: Imaging Protocol: Axial computed tomography images with coronal and sagittal reformatted images were created and reviewed COMPARISON: CT CT SINUS WO from 04/19/2022 FINDINGS: There are no skull fractures. There is no fluid in the visualized paranasal sinuses. Previously pres ent fluid levels in both maxillary sinuses evident on CT scan of 04/19/2022 have resolved. Visualize d paranasal sinuses are presently clear, as are the mastoid air cells. There is no evidence of intracranial hemorrhage, mass effect, or shift of midline structures. There are no extra-axial fluid collections. The ventricles are not enlarged or shifted and there is no blo od within the ventricular system nor within the basal cisterns. Mild bilateral periventricular hypodensity consistent with chronic small vessel disease. IMPRESSION: No acute intracranial findings on this noninfused CT scan of the brain. RADIATION DOSE DELIVERED: 683.89mGy.cm Total DLP DATA REPOSITORY: All CT scans at this facility are submitted to the National Radiology Data Registry (NRDR) Dose Index Registry (DIR) with the [employer] ([employer]). RADIATION OPTIMIZATION: All CT scans at this facility use at least one of these dose optimization te chniques: automated exposure control; mA and/or kV adjustment per patient size (includes targeted exa ms where dose is matched to clinical indication); or iterative reconstruction.
== END ==
PROVIDERS: PCP Family Medicine; Visit Provider Family Medicine
DX: S06.9X9A Unspecified intracranial injury with loss of consciousness of unspecified duration, initial encounter; W19.XXXA Unspecified fall, initial encounter; Z86.711 Personal history of pulmonary embolism; Z79.01 Long term (current) use of anticoagulants; I10 Essential (primary) hypertension
CPT/HCPCS: 70450

== ENCOUNTER 2023-09-22 01:16 | Outpatient (CLI) | payer MEDICARE, SELFPAY ==
[2023-09-22 12:51] LABS: HCT 42.8 % (36.0-46.0); HGB 13.9 g/dL (11.2-15.7); MCH 30.1 pg (27.0-33.0); MCHC 32.5 % (32.0-36.0); MCV 93 fL (80-95); MPV 9.5 fL (8.0-11.0); Platelet Count 506 10^3/uL (130-400); RBC 4.62 10^6/uL (3.93-5.22); RDW 13.9 % (11.7-14.6); RDW-SD 47.7 fL; WBC 7.04 10^3/uL (4.4-10.8)
[2023-09-22 13:19] LABS: ALT 32 U/L (14-59); AST 24 U/L (15-37); Albumin 3.7 g/dL (3.4-5.0); Alkaline Phosphatase 138 U/L (46-116); Anion Gap 12.4 mmol/L (3-11); BUN 17 mg/dL (7-18); Bilirubin, Total 0.41 mg/dL (0.2-1.0); CO2 23.6 mmol/L (21.0-32.0); CREATININE 0.9 mg/dL (0.55-1.02); Calcium 9.1 mg/dL (8.5-10.1); Chloride 105 mmol/L (98-107); Estimated GFR 64.23 (mL/min/1.73m2); Glucose 112 mg/dL (74-106); Sodium 141 mmol/L (136-145); TSH (W/Ref FT4) 2.29 uIU/mL (0.36-3.74); Total Protein 7.3 g/dL (6.4-8.2)
[2023-09-22 14:01] LABS: Hemoglobin A1C 5.9 % (<5.7)
== END 2023-09-22 01:17 | disposition home or self-care (01) ==
LOC: LOS 01:16
PROVIDERS: PCP Family Medicine; Visit Provider Family Medicine
DX: E11.9 Type 2 diabetes mellitus without complications (principal); D47.3 Essential (hemorrhagic) thrombocythemia; I10 Essential (primary) hypertension
CPT/HCPCS: 36415; 80053; 85027; 83036; 84443

== ENCOUNTER 2023-10-10 04:41 | Outpatient (CLI) | payer MEDICARE, SELFPAY ==
[2023-10-10 12:44] LABS: Ferritin 39 ng/mL (8-252)
== END 2023-10-10 04:42 | disposition home or self-care (01) ==
LOC: LOS 04:41
PROVIDERS: PCP Family Medicine; Visit Provider Family Medicine
DX: D50.9 Iron deficiency anemia, unspecified (principal)
CPT/HCPCS: 36415; 82728

== ENCOUNTER 2023-10-19 09:51 | Outpatient (CLI) | payer MEDICARE, SELFPAY ==
--- NOTE | 2023-10-19 09:45 | RT.EKG_ITS ---
APPROVED REPORT Exam: Resting ECG Reason for Exam: chest discomfort Patient Location: O HR:81 bpm ECG Measurements Heart Rate 81 AXIS SC 166 P 67 QRSd 93 QRS 41 QT 374 T 63 QTc 434 Conclusion Sinus rhythm...normal P axis, V-rate 50- 99 Normal Electrocardiogram
== END 2023-10-19 09:52 | disposition home or self-care (01) ==
LOC: DI.CM 09:52
PROVIDERS: PCP Family Medicine; Visit Provider Physician Assistant
DX: R07.89 Other chest pain (principal); R53.1 Weakness
CPT/HCPCS: 93010

== ENCOUNTER 2023-10-19 10:19 | Emergency (ER) | payer MEDICARE, SELFPAY ==
--- NOTE | 2023-10-19 10:15 | RT.EKG_ITS ---
APPROVED REPORT Exam: Resting ECG Reason for Exam: Chest pain Patient Location: E HR:87 bpm ECG Measurements Heart Rate 87 AXIS VA 153 P 54 QRSd 83 QRS 45 QT 354 T 62 QTc 426 Conclusion Sinus rhythm...normal P axis, V-rate 60- 99
[2023-10-19 10:25] VITALS: BP 141/58; PULSE 97; RESP 97; TEMP 36.9
[2023-10-19 10:52] LABS: Abs Immature Grans 0.03 10^3/uL (0.0-0.06); Absolute Basophil Count 0.08 10^3/uL (0.0-0.2); Absolute Eosinophil Count 0.19 10^3/uL (0.0-0.7); Absolute Lymphocyte Count 2.16 10^3/uL (1.2-3.4); Absolute Monocyte Count 0.72 10^3/uL (0.1-0.8); Absolute Neutrophil Count 6.67 10^3/uL (1.2-6.7); Basophils % 0.8 %; Eosinophils % 1.9 %; HCT 42.3 % (36.0-46.0); HGB 14.1 g/dL (11.2-15.7); Immature Grans % 0.3 %; Lymphocytes % 21.9 %; MCH 29.7 pg (27.0-33.0); MCHC 33.3 % (32.0-36.0); MCV 89 fL (80-95); MPV 8.9 fL (8.0-11.0); Monocytes % 7.3 %; Neutrophils % 67.8 %; Platelet Count 531 10^3/uL (130-400); RBC 4.75 10^6/uL (3.93-5.22); RDW 13.2 % (11.7-14.6); RDW-SD 42.9 fL; WBC 9.85 10^3/uL (4.4-10.8)
--- NOTE | 2023-10-19 11:00 | DI.RAD_ITS ---
Exam(s) XR CHEST 2V PA LATERAL EXAM: XR CHEST 2V PA LATERAL CLINICAL HISTORY: cough 2 weeks, recent lightheadedness, rales b/l. TECHNIQUE: 2D digital imaging was performed. COMPARISON: CR,XR XR CHEST 2V PA LATERAL from 12/30/2022 FINDINGS: 2 views: Moderate size retrocardiac hiatal hernia again noted. Heart size is normal. The upper mediastinum is not widened. Lungs are clear. No infiltrates nor pleural effusions. IMPRESSION: No acute pulmonary findings.Moderate size hiatal hernia noted. DATA REPOSITORY: RADIATION DOSE DELIVERED:
--- OUTSIDE RECORDS SUMMARY | 2023-10-19 11:09 | XMS_ITS | Encounter Summary ---
Author Organization [facility] [place] [address] Care Team Providers Care Patient Financial Representative Name Role Phone Roxy Mehta MD Primary Care Provider Reason for Referral * Consultation (Priority 3) - Closed Specialty Diagnoses / Procedures Referred By Contac t Referred To Contact Dermatology Diagnoses Disorder of the skin and subcutaneous tissue, unspecified Roxy Mehta MD [address] [place] [address] [facility] Dermatology [address] [place] [address] Referral ID Status Reason Start Date Expiration Date V isits Requested Visits Authorized [id number] Closed Consult, Test & Treat PCP Updated and/or Approved 10/06/2022 10/06/2023 6 6 Encounter Details Date Type Department Care Team (Late st Contact Info) Description 10/06/2022 Transcribe Orders eDH Incoming Referrals [phone] Roxy Mehta MD [address] [place] [address] Disorder of the skin and subcutaneous tissue, unspecified Social History Tobacco Use Types Packs/Day Years Used Date Smoking Tobacco: Former Cigarettes Smokeless Tobacco: Never Comments: Sex and Gender Information Value Date Recorded Sex Assigned at Female 07/30/2020 12:05 PM EDT Gender Identity Female 07/30/2020 12:05 PM EDT Sexual Orientation Straight 07/30/2020 12 :05 PM EDT documented as of this encounter Plan of Treatment Scheduled Referrals Name Type Priority Associated Diagnoses Orde r Schedule Referral to Dermatology Outpatient Referral Routine Disorder of the skin and subcutaneous tissue, unspecified Ordered: 10/06/2022 documented as of this encounter Visit Diagnoses Diagnosis Disorder of the skin and subcutaneous tissue, unspecified documented in this encounter Care Teams Patient Financial Representative Relationship Specialty Start Date End Date Roxy Mehta MD [address] [place] [address] PCP - General 02/23/10 documented as of this encounter
--- OUTSIDE RECORDS SUMMARY | 2023-10-19 11:09 | XMS_ITS | Clinical Summary ---
Author Organization [facility] Address [facility] [place] [address] Care Team Providers Care Dress Designer Name Role Phone Roxy Mehta MD Primary Care Provider [phone] Allergies No known active allergies Medications Medication Sig Dispensed Refills Start Date End Date Status apixaban (Eliquis) 5 mg Tablet Take 2.5 mg by mouth 2 times daily. Active ferrous sulfate 325 mg (65 mg iron) Tablet Take 325 mg by mouth daily (with breakfast). Active losartan potassium (LOSARTAN ORAL) Take 50 mg by mouth daily. Active fluticasone propionate (Flonase) 50 mcg/actuation [place], Suspension Daily 07/12/2012 Active levothyroxine (Synthroid) 50 mcg Tablet Take 50 mcg by mouth daily. 04/20/2020 Active cholecalciferol, Vitamin D3, 50 mcg (2,000 unit) Capsule 2,000 Units daily. 07/28/2016 Active albuteroL 90 mcg/actuation HFA Aerosol Inhaler INHALE TWO PUFFS BY MOUTH FOUR TIMES A DAY NEEDED FOR SHORTNESS OF BREATH OR WHEEZING 05/08/2020 Active estradioL (VAGIFEM) [address] vaginally. 3 times weekly 09/17/2019 Active inhalational spacing device Spacer .MEDSUPPLY 05/29/2019 Active omeprazole 20 mg Tablet, Delayed Release (E.C.) Take 20 mg by mouth daily. 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 Required Venofer 2016. Capsule study revealed healed small gastric erosion. Marrow 2014 normal cytogenetics Thrombocytosis 02/23/2015 Overview (10/03/2016): 2014 marrow negative for MPN, normal cytogenetics. Negative for BCR/ABL. JAK2 negative Immunizations Name Administration Dates Next Due Influenza Vaccine, Whole 01/22/2008,03/16/2006,1 04/10/2004 TD Adult 04/07/2003 Social History Tobacco Use Types Packs/Day Years Used Date Smoking Tobacco: Former Cigarettes Smokeless Tobacco: Never Comments:s Sex and Gender Information Value Date Recorded Sex Assigned at Female 07/30/2020 12:05 PM EDT Gender Identity Female 07/30/2020 12:05 PM EDT Sexual Orientation Straight 07/30/2020 12 :05 PM EDT Last Filed Vital Signs Vital Sign Reading Time Taken Comments Blood Pressure 152/71 06/17/2021 9:59 AM EDT Pulse 89 06/17/2021 9:59 AM EDT Temperature 36.9 ??C (98.4 ??F) 06/17/2021 9:59 AM ED T Respiratory Rate 18 06/17/2021 9:59 AM EDT Oxygen Saturation 95% 06/17/2021 9:59 AM EDT Inhaled Oxygen Concentration - - Weight 81.5 kg (179 lb 9.6 oz) 06/17/2021 9:59 A M EDT Height 159 cm (5' 2.6) 06/17/2021 9:59 AM EDT Body Mass Index 32.22 06/17/2021 9:59 AM EDT Plan of Treatment Health Maintenance Due Date Last Done Comments Tdap adult 1960 Zoster vaccine (1 of 2) 12/27/1991 Advance Directive 1996 Bone Density Scan 2006 Pneumoccocal Vaccine: 65+ (1 of 1 - PCV) 2006 Tetanus vaccine 04/07/2013 04/07/2003 Covid-19 Vaccine (1 - 2022- season) 2022 Influenza (Flu) vaccine (1 o f 1 - Influenza standard series) 12/03/2023 01/22/2008, 03/16/2006, 02/08/2005 Care Teams Dress Designer Relationship Specialty Start Date End Date Roxy Mehta MD [address] [place] [address] PCP - General 02/23/10
--- OUTSIDE RECORDS SUMMARY | 2023-10-19 11:09 | XMS_ITS | Encounter Summary ---
Author Organization [facility] [place] [address] Care Team Providers Care Videotape Editor Name Role Phone Roxy Mehta MD Primary Care Provider [phone] Encounter Details Date Type Department Care Team (Latest Contact Info) Description 06/17/2021 10:00 AM EDT Office Visit Hematology/Oncology at [address] [phone] Chris Jacobson MD [facility] HEMATOLOGY/[place] [address] Samantha Pardo APRN [facility] HEMATOLOGY/[place] [address] Iron deficiency anemia, unspecified iron deficiency anemia type; Reactive thrombocytosis Social History Tobacco Use Types Packs/Day Years Used Date Smoking Tobacco: Former Cigarettes Smokeless Tobacco: Never Comments:1960's Sex and Gender Information Value Date Recorded Sex Assigned at Female 07/30/2020 12:05 PM EDT Gender Identity Female 07/30/2020 12:05 PM EDT Sexual Orientation Straight 07/30/2020 12 :05 PM EDT documented as of this encounter Last Filed Vital Signs Vital Sign Reading [...] Mass Index 32.22 06/17/2021 9:59 AM EDT documented in this encounter Progress Notes * Chris Jacobson MD - 06/17/2021 10:00 AM EDT Subjective: Patient ID: Patricia Liu is a 80 y.o. female. HPI The patient is a 80-year-old female who I am seeing in the [facility]. She has been followed by hematology intermittently for the last few years because of elevated platelet count. This was felt to be reactive. A bone marrow was negative for myeloproliferative neoplasm. Mutation studieswere negative. She has had intermittent iron deficiency. She has received 2 or 3 bouts of intravenous iron. More recently over the last 6 months she been maintained on oral iron Monday. She is tolerating that. She feels well. She has not seen any bleeding. She is still quite active. Patient Active Problem List Diagnosis Code ??? Thrombocytosis D75.839 ??? Iron deficiency anemia D50.9 ??? Recurrent pulmonary embolism I26.99 ??? Reactive thrombocytosis D75.838 Current Outpatient Medications: ??? omeprazole 20 mg Tablet, Delayed Release (E.C.), Take 20 mg by mouth daily., Disp: , Rfl: ??? fluticasone propionate (Flonase) 50 mcg/actuation [place], Suspension, Daily, Disp: , Rfl: ??? levothyroxine (Synthroid) 50 mcg Tablet, Take 50 mcg by mouth daily., Disp: , Rfl: ??? cholecalciferol, Vitamin D3, 50 mcg (2,000 unit) Capsule, 2,000 Units daily., Disp: , Rfl: ??? albuteroL 90 mcg/actuation HFA Aerosol Inhaler, INHALE TWO PUFFS BY MOUTH FOUR TIMES A DAY NEEDED FOR SHORTNESS OF BREATH OR WHEEZING, Disp: , Rfl: ??? estradioL (VAGIFEM) 10 mcg Tablet, Place vaginally. 3 times weekly, Disp: , Rfl: ??? inhalational spacing device Spacer, .MEDSUPPLY, Disp: , Rfl: ??? losartan potassium (LOSARTAN ORAL), Take 50 mg by mouth daily., Disp: , Rfl: ??? apixaban (Eliquis) 5 mg Tablet, Take 2.5 mg by mouth 2 times daily., Disp: , Rfl: ??? ferrous sulfate 325 mg (65 mg iron) Tablet, Take 325 mg by mouth daily (with breakfast)., Disp:, Rfl: No Known Allergies Review of Systems Constitutional: Positive for fatigue. Negative for fever and unexpected weight change. HENT: Negative for nosebleeds. Respiratory: Negative for cough and shortness of breath. Cardiovascular: Negative for chest pain and palpitations. Gastrointestinal: Negative for abdominal pain and diarrhea. Musculoskeletal: Positive for gait problem (knee). Negative for back pain. Skin: Negative for rash. Neurological: Negative for speech difficulty. Hematological: Negative for adenopathy. Does not bruise/bleed easily. All other systems reviewed and are negative. Objective: Physical Exam Constitutional: General: She is not in acute distress. Eyes: General: No scleral icterus. Cardiovascular: Rate and Rhythm: Normal rate. Pulmonary: Effort: Pulmonary effort is normal. Musculoskeletal: Left lower leg: No edema. Skin: Findings: No rash. Neurological: Mental Status: She is alert and oriented to person, place, and time. Psychiatric: Mood and Affect: Mood normal. Labs from today White count 8.0, hemoglobin 13.5, platelets 497 ferritin 45 Assessment and Plan: 80-year-old female who has had intermittent thrombocytosis likely reactive to recurrent iron deficiency. Over the last several months she has been maintained on oral iron 3 times a week. She is toleratingthat well. Her hemoglobin has been well preserved and her ferritin is climbed up to 45 from the 30 range. This suggests that what she is absorbing from her oral iron is keeping up with what she has been losing. Her platelet count is essentially back to the normal range and she is not anemic. I do not think she needs close hematology follow-up anymore. She can follow with her primary care doctor. If her ferritin gets above 100 I think it would be reasonable to stop her iron. there is no evidence of an intrinsic marrow disorder. I think her intermittent elevated platelet count has been reactive to the iron deficiency. I did not make a return appointment to the hematology clinic for her. documented in this encounter Plan of Treatment Not on file documented as of this encounter Procedures Procedure Name Priority Date/Time Associated Diagnosis Comments CBC (WITH DIFF) Routine 06/11/2021 documented in this encounter Results * (ABNORMAL) CBC (with Diff) (06/11/2021) WBC 8.00 RBC 4.72 Hemoglobin 13.5 Hematocrit 42.6 Platelets 497(H) Neutr Abs (ANC) 4.49 Ferritin 35 Iron 68 Blood 06/11/2021 Historical Provider HEMATOLOGY ORDERA BLES documented in this encounter Visit Diagnoses Diagnosis Iron deficiency anemia, unspecified iron deficiency anemia type Reactive thrombocytosis documented in this encounter Care Teams Videotape Editor Relationship Specialty Start Date End Date Roxy Mehta MD [address] [place] [address] PCP - General 02/23/10 documented as of this encounter
--- OUTSIDE RECORDS SUMMARY | 2023-10-19 11:10 | XMS_ITS | Encounter Summary ---
Author Organization [facility] [place] [address] Care Team Providers Care Optometrist Assistant Name Role Phone Roxy Mehta MD Primary Care Provider [phone] Encounter Details Date Type Department Care Team (Latest Contact Info) Description 09/12/2016 1:37 PM EDT - 09/12/2016 11:59 PM EDT Hospital Encounter [place] [address] Discharge Disposition: Home Social History Tobacco Use Types Packs/Day Years Used Date Smoking Tobacco: Former Comments:1060's Sex and Gender Information Value Date Recorded Sex Assigned at Female 07/30/2020 12:05 PM EDT Gender Identity Female 07/30/2020 12:05 PM EDT Sexual Orientation Straight 07/30/2020 12 :05 PM EDT documented as of this encounter Medications at Time of Discharge Medication Sig Dispensed Refills Start Date End Date fluticasone propionate (Flonase) 50 mcg/actuation [place], Suspension Daily 07/12/2012 cholecalciferol, Vitamin D3, 50 mcg (2,000 unit) Capsule 2,000 Units daily. 07/28/2016 apixaban (Eliquis) 5 mg Tablet Take 2.5 mg by mouth 2 times daily. ferrous sulfate 325 mg (65 mg iron) Tablet Take 325 mg by mouth daily (with breakfast). aspirin 81 mg Tablet, Delayed Release (E.C.) Take 81 mg by mouth daily. Reported on 10/03/2016 08/13/2020 DULoxetine (CYMBALTA) 30 mg Capsule, Delayed Release(E.C.)Indications :Thrombocytosis Take 30 mg by mouth daily. 08/13/2020 omeprazole (PRILOSEC) 40 mg Capsule, Delayed Release(E.C.)Indications :Thrombocytosis Take 20 mg by mouth 2 times daily. 12/10/2020 lisinopril (PRINIVIL;ZESTRIL) 10 mg TabletIndications:Thromb ocytosis Take 10 mg by mouth daily. 08/13/2020 CIS Free Text Med - Nasacort 1 Puff(s), Nasal, Twice daily PRN 03/16/2006 12/10/2020 CIS Free Text Med - Albuterol (Refill) 03/16/2006 CIS Free Text Med - Vagifem 25MCG = 1 Tablet(s), Vag, Every other day 03/16/2006 12/10/2020 metFORMIN (GLUCOPHAGE) 1,000 mg tablet 1000MG = 1 Tablet(s), PO, Twice daily 03/16/2006 08/13/2020 documented as of this encounter Plan of Treatment Not on file documented as of this encounter Procedures Procedure Name Priority Date/Time Associated Diagnosis Comments U ALBUMIN/CRE RATIO Routine 09/12/2016 1 :50 PM EDT HEMOGLOBIN A1C Routine 09/12/2016 1:47 PM EDT LIPID PANEL (REFLEX DIRECT LDL) Routine 09/12/2016 1:47 PM EDT documented in this encounter Results * U Albumin/Cre Ratio (09/12/2016 1:50 PM EDT) Alb/Cr Ratio, Random 6 0 - 29 mcg/mg Cr [facility] Comment: Reference Ranges: <30 mcg/mg: Normal 30-300 mcg/mg: Moderately increased albuminuria.* >300 mcg/mg: Severely increased albuminuria. * ACEI or ARB recommended if diabetic; suggested if BP>130/80 without diabetes ACEI or ARB strongly recommended if diabetic; recommended if BP>130/80 without diabetes Two of three specimens collected within a 3 to 6 month period should be abnormal before considering a patient to have albuminuria. Transient causes: exercise, fever, infection, CHF, marked hyperglycemia or hypertension. Persistent albuminuria indicates CKD and is an independent risk factor for ASCVD. ADA Standards of Medical Care in Diabetes-2016; KDIGO: Kidney International Supplements (2012) 2, 357? 362 U Albumin Conc, Random 8.2 mg/L [facility] U Creatinine 142 mg/dL [facility] Urine specimen (specimen) Urine / Unknown 09/12/2016 1:50 PM EDT 09/12/2016 2:01 PM EDT Narrative Resulting Agency Comment Spec In Lab Roxy Mehta MD URINE ORDERABLES [facility] [place] [address] * (ABNORMAL) Hemoglobin A1c (09/12/2016 1:47 PM EDT) Hemoglobin A1C 5.9(H) 4.3 - 5.6 % [facility] Comment: Reference Range: 4.3 - 5.6% 5.7 - 6.4% - Increased Risk of Developing Diabetes Mellitus >= 6.5% - Consistent with diagnosis of Diabetes Mellitus In the absence of hyperglycemia (i.e. plasma glucose > 200 mg/dL) or classic symptoms of hyperglycemia a repeat measurement of HbA1c should be performed on a separate sample to confirm the diagnosis. Diagnosis and Classification of Diabetes Mellitus, Diabetes Care 2013; 36: Suppl. 1, S67-74 Est Avg Gluc See note mg/dL [facility] Comment: Estimated Average Glucose not appropriate for patients over 70 years of age. eAG equivalents for HbA1c percentages: HbA1c(%) ?eAG(mg/dL) 6.0 ?126 6.5 ?140 7.0 ?154 7.5 ?169 8.0 ?183 8.5 ?197 9.0 ?212 9.5 ?226 10.0 ? 240 Limitations: The eAG calculation has not been validated on women, individuals below 18 years old and above 70 years old, and individuals with hemoglobinopathies. Additional resources are available on the ADA website. Uzair PALACIO, Latha J, Ryne R, et al. ??Translating the A1C assay into estimated average glucose values. ??Diabetes Care 2008:31(8):6886-1436. Blood specimen (specimen) Venous Draw / Unknown 09/12/2016 1:47 PM EDT 09/12/2016 1:54 PM EDT Narrative Resulting Agency Comment Spec In Lab Roxy Mehta MD CHEMISTRY ORDERABLES Performing Organization Address City/State/[facility] Co de Phone Number [facility] [place] [address] * (ABNORMAL) Lipid Panel (09/12/2016 1:47 PM EDT) Chol, Total 291(H) <=239 mg/dL [facility] Triglycerides 180 <=199 mg/dL [facility] HDL 72 >=40 mg/dL [facility] LDL Cholesterol 183 <=190 mg/dL [facility] Chol/HDL Ratio 4.0 ratio [facility] Lipid Interpretation See Note [facility] Comment: Lipid management should be guided by a patient? s ASCVD risk, goals and preferences. ACC/AHA Guidelines recommend high intensity statin if clinical ASCVD or LDL greater than or equal to 190 mg/dL. http://[email or web address].com/FSY-IJG-Yhkmgdsgs Adults aged 40-75 with LDL 70-189 mg/dL should have their 10 year ASCVD risk estimated with the ACC/AHA ASCVD risk timber estimator http://tools.acc.org/JEPJE-Pthf-Wgdwqyapp/ Statin should be discussed if risk greater than or equal to 7.5% in non-diabetics. With diabetes, moderate intensity statin is recommended if risk less than 7.5%, high intensity if risk greater than or equal to 7.5%. Annual lipid monitoring on statins is not necessary. Evaluate secondary causes of Triglycerides greater than 500 mg/dL or LDL greater than 190 mg/dL: See table 6 of ACC/AHA Guideline. Lifestyle modification is a critical component of ASCVD risk reduction. Blood specimen (specimen) Venous Draw / Unknown 09/12/2016 1:47 PM EDT 09/12/2016 1:54 PM EDT Narrative Resulting Agency Comment Spec In Lab Roxy Mehta MD CHEMISTRY ORDERABLES Performing Organization Address City/State/[facility] Co de Phone Number [facility] [place] [address] documented in this encounter Visit Diagnoses Not on filedocumented in this encounter Care Teams Optometrist Assistant Relationship Specialty Start Date End Date Roxy Mehta MD [address] [place] [address] PCP - General 02/23/10 documented as of this encounter
--- OUTSIDE RECORDS SUMMARY | 2023-10-19 11:10 | XMS_ITS | Encounter Summary ---
Author Organization [facility] Address [facility] [place] [address] Care Team Providers Care Pressure Testing Technician Name Role Phone Willem Mehta MD Primary Care Provider [phone] Reason for Visit * Reason Comments Skin Check Encounter Details Date Type Department Care Team (Late st Contact Info) Description 01/07/2016 9:15 AM EDT Office Visit Dermatology at [address] [address] Joyce Truong MD [facility] [place] [address] [place] (actinic keratosis); Nevus; Giordano angioma; Seborrheic keratosis Social History Tobacco Use Types Packs/Day Years Used Date Smoking Tobacco: Former Sex and Gender Information Value Date Recorded Sex Assigned at Female 07/30/2020 12:05 PM EDT Gender Identity Female 07/30/2020 12:05 PM EDT Sexual Orientation Straight 07/30/2020 12 :05 PM EDT documented as of this encounter Progress Notes * Joyce Truong MD - 01/07/2016 9:15 AM EDT Images from the original note were not included. DERMATOLOGY CONSULT NOTE Date of service: 01/07/2016 Patricia Liu : 1940 Provider: Joyce Truong MD PROBLEM: Rough spot on back The patient is seen at the request of WILLEM MEHTA MD , who instructed the patient to be seen for evaluation of above HPI Patricia is a 75 y.o. female with rough spots on her back. Not sure about the mole on her back. FH: Mother had skin cancer ADR: Review of patient's allergies indicates no known allergies. MEDS: Current Outpatient Prescriptions on File Prior to Visit Medication Sig Dispense Refill ??? aspirin 81 mg Tablet, Delayed Release (E.C.) Take 81 mg by mouth daily. ??? Calcium Citrate-Vitamin D3 200 mg calcium -250 unit Tablet Take by mouth. ??? DULoxetine (CYMBALTA) 30 mg Capsule, Delayed Release(E.C.) Take 30 mg by mouth daily. ??? omeprazole (PRILOSEC) 40 mg Capsule, Delayed Release(E.C.) Take 40 mg by mouth daily. ??? lisinopril (PRINIVIL;ZESTRIL) 10 mg Tablet Take 10 mg by mouth daily. ??? CIS Free Text Med - Nasacort 1 Puff(s), Nasal, Twice daily PRN ??? CIS Free Text Med - Albuterol (Refill) ??? CIS Free Text Med - Vagifem 25MCG = 1 Tablet(s), Vag, Every other day ??? ibuprofen (ADVIL;MOTRIN) 600 mg tablet 600mg, PO, 2-3 times a day ??? metFORMIN (GLUCOPHAGE) 1,000 mg tablet 1000MG = 1 Tablet(s), PO, Twice daily No current facility-administered medications on file prior to visit. ROS General: feeling well Skin: denies other skin complaints EXAM General: NAD, pleasant, cooperative Skin: A total body skin exam except for areas covered by underwear was performed. This includes examination of the skin of the face, ears, neck, chest, axillae, left and right upper and lower extremities, hands and feet, abdomen, and except the areas covered by underwear were not examined. Significant skin findings: A.1.5cm x 1.0cm medium brown patch with regular pigment network B. 0.2-0.3cm scaly irregular pink papule(s) on the forehead C. Numerous,0.4-0.6cm brown papules with waxy, stuck-on appearance on the trunk D. Multiple 0.2-0.4cm bright red, well-demarcated papules ASSESSMENT/PLAN: A. Nevus-call if changes B. Actinic Keratosis Procedure Note: Procedure: Destruction of lesion(s) with cryotherapy. Number: 1 Location: as above Discussed procedure and expectations including risks (including risk of hypopigmentation) and benefits. Verbal consent obtained. Frozen with LN2, 15-30 second thaw time, TWICE. There were no complications; the patient tolerated the procedure well. Post-procedure expectations and wound care were reviewed. C. Seborrheic Keratosis -reassured D. Giordano Angioma-reassured E. RTC 1yr I am documenting this encounter acting as the scribe for and in the presence of Dr. Truong. Vania Thomas LPN I performed the above scribed service and agree with the accuracy of the documentation in this encounter. Joyce Truong MD Section of Dermatology [facility] cc: No referring provider defined for this encounter. documented in this encounter Plan of Treatment Not on file documented as of this encounter Visit Diagnoses Diagnosis [place] (actinic keratosis) Actinic keratosis Nevus Benign neoplasm of skin, site unspecified Giordano angioma Nevus, non-neoplastic Seborrheic keratosis Other seborrheic keratosis documented in this encounter Care Teams Pressure Testing Technician Relationship Specialty Start Date End Date Willem Mehta MD [address] [address] PCP - General 02/23/10 documented as of this encounter
--- OUTSIDE RECORDS SUMMARY | 2023-10-19 11:10 | XMS_ITS | Encounter Summary ---
Author Organization [facility] [place] [address] Care Team Providers Care Political Advisor Name Role Phone Roxy Mehta MD Primary Care Provider [phone] Reason for Visit * Reason Comments Iron Deficiency Encounter Details Date Type Department Care Team (Latest Contact Info) Description 09/29/2016 8:12 AM EDT - 09/29/2016 11:59 PM EDT Hospital Encounter [place] [address] Iron deficiency anemia, unspecified iron deficiency anemia type (Primary Dx) Discharge Disposition: Home Social History Tobacco Use Types Packs/Day Years Used Date Smoking Tobacco: Former Comments:1060's Sex and Gender Information Value Date Recorded Sex Assigned at Female 07/30/2020 12:05 PM EDT Gender Identity Female 07/30/2020 12:05 PM EDT Sexual Orientation Straight 07/30/2020 12 :05 PM EDT documented as of this encounter Last Filed Vital Signs Vital Sign Reading Time Taken Comments Blood Pressure 120/61 09/29/2016 8:39 AM EDT Pulse 98 09/29/2016 8:39 AM EDT Temperature 36.2 ??C (97.2 ??F) 09/29/2016 8:39 AM ED T Respiratory Rate 18 09/29/2016 8:39 AM EDT Oxygen Saturation 100% 09/29/2016 8:39 AM EDT Inhaled Oxygen Concentration - - Weight - - Height - - Body Mass Index - - documented in this encounter Medications at Time of Discharge Medication Sig Dispensed Refills Start Date End Date fluticasone propionate (Flonase) 50 mcg/actuation [place], Suspension Daily 07/12/2012 cholecalciferol, Vitamin D3, 50 [...] 03/16/2006 08/13/2020 documented as of this encounter Progress Notes * Roma Armijo RN - 09/29/2016 8:56 AM EDT Patient Name: Patricia Liu Patient Age: 75 y.o. Birthdate: 1940 Admit date: 09/29/2016 Attending Physician: No att. providers found TIME TREATMENT STARTED: 0845 TIME TREATMENT ENDED: 1055 Patricia Liu, with diagnosis of Iron Deficiency Anemia is here for infusion of Venofer, week 3. S: Pt. offers no complaints at this time. O: Chemotherapy orders independently verified for correct drug name, route and dosage per patient'sheight, weight and BSA by MARCO Srinivasan and onsite pharmacist IV access: Peripheral, left wrist Premeds: none Venofer 300 mg over 2 hrs Pt preferred not to stay for 30 observation following infusion. REACTIONS (DESCRIPTION, TIME, INTERVENTION AND EFFECTIVENESS) none A: Pt. Tolerated treatment well. Patricia Liu confirms that all questions and issues have been addressed. P: Return to clinic as scheduled. documented in this encounter Plan of Treatment Not on file documented as of this encounter Visit Diagnoses Diagnosis Iron deficiency anemia, unspecified iron deficiency anemia type- Primary documented in this encounter Administered Medications Inactive Administered Medications - up to 3 most recent administrations Medication Order MAR Action Action Date Dose Rate Site iron sucrose (VENOFER) 300 mg in sodium chloride 0.9% 265 mL 300 mg, Intravenous, ONCE, 1 dose, On Hilda 09/29/16 at 0830, Administer over 120 Minutes, Patients should be closely monitored for signs of hypersensitivity during and for at least 30 min after each administration. Given 09/29/2016 8:50 AM EDT 300 mg 132.5 mL/hr documented in this encounter Care Teams Political Advisor Relationship Specialty Start Date End Date Roxy Mehta MD [address] [place] [address] PCP - General 02/23/10 documented as of this encounter
--- OUTSIDE RECORDS SUMMARY | 2023-10-19 11:10 | XMS_ITS | Encounter Summary ---
Author Organization [facility] [place] [address] Care Team Providers Care Residential Youth Counselor Name Role Phone Roxy Mehta MD Primary Care Provider [phone] Encounter Details Date Type Department Care Team (Late st Contact Info) Description 08/18/2020 Telephone Hematology [place] [phone] Clarissa Zuleta RN Social History Tobacco Use Types Packs/Day Years Used Date Smoking Tobacco: Former Cigarettes Smokeless Tobacco: Never Comments:1960's Sex and Gender Information Value Date Recorded Sex Assigned at Female 07/30/2020 12:05 PM EDT Gender Identity Female 07/30/2020 12:05 PM EDT Sexual Orientation Straight 07/30/2020 12 :05 PM EDT documented as of this encounter Miscellaneous Notes * Telephone Encounter - Clarissa Zuleta RN - 08/18/2020 1:39 PM EDT TC to PCP office and relayed requests for Dr. Mehta by Dr. Espana, Hematology, (written below) with contact information to return call with questions. Clarissa Zuleta RN MSN ===View-only below this line=== ----- Message ----- From: Wendy Espana MD Sent: 08/17/2020 7:49 PM EDT To: Clarissa Zuleta RN, Sina David PS: can you change her follow-up to 2 instead of 6/ - and change to tele - 11 am? Clarissa: I e faxed my note to PCP. Can you call PCP office and relay message that I recommend to consider re GI evaluation to rule out source of bleeding. Thanks Wendy documented in this encounter Plan of Treatment Not on file documented as of this encounter Visit Diagnoses Not on filedocumented in this encounter Care Teams Residential Youth Counselor Relationship Specialty Start Date End Date Roxy Mehta MD [address] [place] [address] PCP - General 02/23/10 documented as of this encounter
--- OUTSIDE RECORDS SUMMARY | 2023-10-19 11:10 | XMS_ITS | Encounter Summary ---
Author Organization [facility] [place] [address] Care Team Providers Care Child Care Supervisor Name Role Phone Roxy Mehta MD Primary Care Provider [phone] Encounter Details Date Type Department Care Team (Late st Contact Info) Description 03/08/2019 Ancillary Procedure [place] [phone] Roxy Mehta MD [address] [place] [address] Social History Tobacco Use Types Packs/Day Years Used Date Smoking Tobacco: Former Smokeless Tobacco: Never Comments:1960's Sex and Gender Information Value Date Recorded Sex Assigned at Female 07/30/2020 12:05 PM EDT Gender Identity Female 07/30/2020 12:05 PM EDT Sexual Orientation Straight 07/30/2020 12 :05 PM EDT documented as of this encounter Plan of Treatment Not on file documented as of this encounter Procedures Procedure Name Priority Date/Time Associated Diagnosis Comments FILM LIBRARY STORAGE ONLY CT CHEST ABDOMEN PELVIS Routine 03/08/2019 12:00 AM EST documented in this encounter Results * Film Library- Storage Only CT Chest Abdomen Pelvis (03/08/2019 12:00 AM EST) Narrative [facility] - 05/07/2020 4:47 PM EST This exam is auto-finalizing. It's purpose is for storage only. Roxy Mehta MD IM FILM LIBRARY ORD ERABLES [place], [place] documented in this encounter Visit Diagnoses Not on filedocumented in this encounter Care Teams Child Care Supervisor Relationship Specialty Start Date End Date Roxy Mehta MD [address] [place] [address] [address] [facility] [address] [place] [address] PCP - General 02/23/10 documented as of this encounter
--- OUTSIDE RECORDS SUMMARY | 2023-10-19 11:10 | XMS_ITS | Encounter Summary ---
Author Organization [facility] Address [facility] [place] [address] Care Team Providers Care Trouble Operator Name Role Phone Roxy Mehta MD Primary Care Provider [phone] Encounter Details Date Type Department Care Team (Late st Contact Info) Description 10/30/2017 Telephone Dermatology at [facility] [address] [place] [address] Joyce Truong MD [facility] [place] [address] Social History Tobacco Use Types Packs/Day Years Used Date Smoking Tobacco: Former Smokeless Tobacco: Never Comments:1060's Sex and Gender Information Value Date Recorded Sex Assigned at Female 07/30/2020 12:05 PM EDT Gender Identity Female 07/30/2020 12:05 PM EDT Sexual Orientation Straight 07/30/2020 12 :05 PM EDT documented as of this encounter Miscellaneous Notes * Telephone Encounter - Lindsay Ross - 10/30/2017 2:35 PM EDT Patricia left a message on my vm to schedule appts with Dr. Truong. I returned a call to the number provided of [phone] and left a message with the correct number to contact Yina at [phone]. documented in this encounter Plan of Treatment Not on file documented as of this encounter Visit Diagnoses Not on filedocumented in this encounter Care Teams Trouble Operator Relationship Specialty Start Date End Date Roxy Mehta MD [address] [place] [address] PCP - General 02/23/10 documented as of this encounter
--- OUTSIDE RECORDS SUMMARY | 2023-10-19 11:10 | XMS_ITS | Encounter Summary ---
Author Organization [facility] [place] [address] Care Team Providers Care Hand Bobbin Cleaner Name Role Phone Roxy Mehta MD Primary Care Provider Encounter Details Date Type Department Care Team (Latest Contact Info) Description 08/04/2020 1:30 PM EDT - 08/04/2020 11:59 PM EDT Hospital [place] [address] Pulmonary hypertension Discharge Disposition: Home Social History Tobacco Use [...] End Date fluticasone propionate (Flonase) 50 mcg/actuation [place], Suspension Daily 07/12/2012 levothyroxine (Synthroid) 50 mcg Tablet Take 50 mcg by mouth daily. 04/20/2020 cholecalciferol, Vitamin D3, 50 mcg (2,000 unit) Capsule 2,000 Units daily. 07/28/2016 albuteroL 90 mcg/actuation HFA Aerosol Inhaler INHALE TWO PUFFS BY MOUTH FOUR TIMES A DAY NEEDED FOR SHORTNESS OF BREATH OR WHEEZING 05/08/2020 estradioL (VAGIFEM) [address] vaginally. 3 times weekly 09/17/2019 inhalational spacing device Spacer .MEDSUPPLY 05/29/2019 losartan potassium (LOSARTAN ORAL) Take 50 mg by mouth daily. apixaban (Eliquis) 5 mg Tablet Take 2.5 mg by mouth 2 times daily. ferrous sulfate 325 mg (65 mg iron) Tablet Take 325 mg by mouth daily (with breakfast). Symbicort 160-4.5 mcg/actuation HFA Aerosol Inhaler INHALE TWO PUFFS BY MOUTH TWICE A DAY 05/08/2020 12/10/2020 aspirin 81 mg Tablet, Delayed Release (E.C.) Take 81 mg by mouth daily. Reported on 10/03/2016 08/13/2020 DULoxetine (CYMBALTA) 30 mg Capsule, Delayed Release(E.C.)Indication s:Thrombocytosis Take 30 mg by mouth daily. 08/13/2020 omeprazole (PRILOSEC) 40 mg Capsule, Delayed Release(E.C.)Indication s:Thrombocytosis Take 20 mg by mouth 2 times daily. 12/10/2020 lisinopril (PRINIVIL;ZESTRIL) 10 mg TabletIndications:Throm bocytosis Take 10 mg by mouth daily. 08/13/2020 [...] Procedure Name Priority Date/Time Associated Diagnosis Comments COMMON PULMONARY FUNCTION TEST Routine 08/04/2020 1:48 PM EDT Pulmonary hypertension documented in this encounter Results * Pulmonary Function Testing (08/04/2020 1:48 PM EDT) FVC Actual Pre-BD 2.95 L COMPAS PFT FVC Pre-BD % of Predicted 122 % COMPAS PFT FVC Predicted 2.42 L COMPAS PFT FVC Pre-BD Z-Score 1.16 COMPAS PFT FVC Lower Limits of Normal 1.71 L COMPAS PFT FEV1 Actual Pre-BD 2.33 L COMPAS PFT FEV1 Pre-BD % of Predicted 126 % COMPAS PFT FEV1 Predicted 1.85 L COMPAS PFT FEV1 Pre-BD Z-Score 1.51 COMPAS PFT FEV1 Lower Limits of Normal 1.30 L COMPAS PFT FEV1 / FVC Actual Pre-BD 79 % COMPAS PFT FEV1/FVC Pre-BD Z-Score 0.25 COMPAS PFT FEV1 / FVC LLN 63 % COMPAS PFT [id number] Actual Pre-BD 2.40 L/s COMPAS PFT HFY93-72 Pre-BD % of Predicted 157 % COMPAS PFT HQS45-23 Predicted 1.53 L/s COMPAS PFT OSN78-17 Pre-BD Z-Score 1.14 COMPAS PFT DLCO Hb Actual Pre-BD 15.63 mL/min/mmHg COMPAS PFT DLCO Hb Pre-BD % of Predicted 88 % COMPAS PFT DLCO Hb Pre-BD Z-Score -0.70 COMPAS PFT DLCO Hb Predicted 17.76 mL/min/mmHg COMPAS PFT DLCO [facility]C ACT PRE-BD 15.63 mL/min/mmHg COMPAS PFT DLCO UNC PRE-BD % of PRED 88 % COMPAS PFT DLCO [facility]C PRE-BD Z-SCORE -0.70 % COMPAS PFT DLCO [facility] Predicted 17.76 mL/min/mmHg COMPAS PFT DLCO/VA Actual Pre-BD 3.45 mL/min/mmHg /L COMPAS PFT DLCO/VA Pre-BD % of Predicted 83 % COMPAS PFT DLCO/VA Pre-BD Z-Score -1.14 COMPAS PFT DLCO/VA Predicted 4.17 mL/min/mmHg /L COMPAS PFT Narrative COMPAS PFT - 08/04/2020 1:48 PM EDT FINDINGS: FEV1, FVC, and FEV1/VC are within normal limits. Diffusion capacity is normal. IMPRESSION: Normal spirometry. No diffusion impairment. Procedure Note Unknown - 08/04/2020 FINDINGS: FEV1, FVC, and FEV1/VC are within normal limits. Diffusioncapacity is normal. IMPRESSION: Normal spirometry. No diffusion impairment. Leif Cohen MD PFT ORDERABLES COMPAS PFT documented in this encounter Visit Diagnoses Diagnosis Pulmonary hypertension Other chronic pulmonary heart diseases documented in this encounter Care Teams Hand Bobbin Cleaner Relationship Specialty Start Date End Date Roxy Mehta MD [address] [place] [address] PCP - General 02/23/10 documented as of this encounter
--- OUTSIDE RECORDS SUMMARY | 2023-10-19 11:10 | XMS_ITS | Encounter Summary ---
Author Organization [facility] Address [facility] [place] [address] Care Team Providers Care Grey Washer Name Role Phone Roxy Mehta MD Primary Care Provider [phone] Encounter Details Date Type Department Care Team (Late st Contact Info) Description 09/12/2016 2:45 PM EDT Office Visit Hematology [place] [address] Chris Jacobson MD [facility] DR HEMATOLOGY/[place] [address] Samantha Pardo APRN [facility] [address] HEMATOLOGY/[place] [address] [address] [facility] [address] HEMATOLOGY/[place] [address] Thrombocytosis; Elevated TSH Social History Tobacco Use Types Packs/Day Years Used Date Smoking Tobacco: Former Comments:1060's Sex and Gender Information Value Date Recorded Sex Assigned at Female 07/30/2020 12:05 PM EDT Gender Identity Female 07/30/2020 12:05 PM EDT Sexual Orientation Straight 07/30/2020 12 :05 PM EDT documented as of this encounter Last Filed Vital Signs Vital Sign Reading Time Taken Comments Blood Pressure 144/72 09/12/2016 3:09 PM EDT Pulse 67 09/12/2016 3:09 PM EDT Temperature 36.6 ??C (97.9 ??F) 09/12/2016 3:09 PM ED T Respiratory Rate 16 09/12/2016 3:09 PM EDT Oxygen Saturation 100% 09/12/2016 3:09 PM EDT Inhaled Oxygen Concentration - - Weight 75.3 kg (166 lb) 09/12/2016 3:09 PM EDT Height - - Body Mass Index - - documented in this encounter Progress Notes * Shauna Cuadra, - 09/12/2016 2:45 PM EDT Images from the original note were not included. Hematology Clinic Follow Up Reason for referral: Mrs Liu was re-referred by Dr. Roxy Mehta MD for evaluation of thrombocytosis and anemia. I have reviewed available records and interviewed/examined the patient. HPI Patricia reports that she remembers plt count being reported as high as far back as early 2012. At that time she was in her usual state of health. This was monitored over the last few years. Only changein her health was several months of poor appetite and ~25-lb wt loss with negative work up earlier in 2013. She reportedly had negative EGD, CT C/A/P. Last colo was 2011. Everything normalized and over last 2 months appetite is normal and her wt is back to baseline. Review of her work up shows [facility] 01/27/15 WBC 7.6 Hn 12.9 MCV 87.1 Plt 605 (labs dating back to 11/2012 show plt 487 -> -> 557 by 08/2013). Our evaluation showed negative JAK2, normal BMBx, low ferritin. We counseled to have completion of iron-deficiency evaluation and return PRN. Video capsule endoscopy revealed a small erosion in the gastric antrum and lymphangiectasias but no source of chronic blood loss. Interval History: Patrciia is back for evaluation of worsening labs, anemia and thrombocytosis. Following our visit in 2014, she has continued on once daily oral iron. She had a left TKR last year, recovered well. This year, starting ~June, she developed a severe case of shingles that she continues to suffer from both with pain and a small area of redness over herback. She self-medicated with 800 mg ibuprofen daily and was rather immobile for ~8 weeks time. Shortly thereafter, she developed difficulty breathing and was hospitalized for pulmonary emboli in both lungs as well as a Hb 7.3 thought to be due to GI bleeding. She was admitted for 2-3 days at [facility]. She was started on apixaban for anticoagulation but also given one dose of IV iron. Clot was attributed to immobility/inflammation during shingles. Since that time she has had no other hospitalizations, F/C or other severe infections. Following her hospitalization, she reports her bowels were black/tarry but have since normalized tobrown. Despite her presentation, she has not needed any pRBC transfusions. She felt well enough to dine out for the first time Monday but she occasionally still feels some dizziness with standing and she is easily breathless. Review of Systems Constitutional: No fevers, chills, sweats, +fatigue Skin: No rash or other lesions HEENT: Denies sore throat, congestion Cardiovascular: No chest pain, palpitations, REED, or orthopnea Respiratory: Denies cough, wheezing Gastrointestinal: Denies n/v, abd pain, diarrhea/melena Genitourinary: Denies dysuria, frequency, hematuria Musculoskeletal: Chronic bilat knee pain L>R Neuro: Denies numbness, tingling or focal weakness Psychiatric: +depression by hx, denies current sx Remainder of the ROS was negative Past Medical History 1. Type 2 Diabetes 2. GERD 3. Hypertension 4. Arthritis affecting knees 5. Pulmonary Emboli Medications Medications 09/12/16 4884 Medication Sig Taking? apixaban (ELIQUIS) 5 mg Tablet Take 5 mg by mouth 2 times daily. Yes ferrous sulfate 325 mg (65 mg iron) Tablet Take 325 mg by mouth daily (with breakfast). Yes Calcium Citrate-Vitamin D3 200 mg calcium -250 unit Tablet Take by mouth. Yes DULoxetine (CYMBALTA) 30 mg Capsule, Delayed Release(E.C.) Take 30 mg by mouth daily. Yes omeprazole (PRILOSEC) 40 mg Capsule, Delayed Release(E.C.) Take 40 mg by mouth daily. Yes lisinopril (PRINIVIL;ZESTRIL) 10 mg Tablet Take 10 mg by mouth daily. Yes CIS Free Text Med - Nasacort 1 Puff(s), Nasal, Twice daily PRN Yes CIS Free Text Med - Albuterol (Refill) Yes CIS Free Text Med - Vagifem 25MCG = 1 Tablet(s), Vag, Every other day Yes metFORMIN (GLUCOPHAGE) 1,000 mg tablet 1000MG = 1 Tablet(s), PO, Twice daily Yes aspirin 81 mg Tablet, Delayed Release (E.C.) Take 81 mg by mouth daily. Reported on 09/12/2016 Allergies Itching with doxycycline Family History M: d @83 Hx of breast ca. heart disease, diabetes F: d @81 heart disease, CVA One sister who is well (HTN) No Hx of hematologic malignancy Social History Retired, Quit tobacco >10 yrs ago Physical Exam Blood pressure 144/72, pulse 67, temperature 36.6 ??C (97.9 ??F), temperature source Temporal, resp. rate 16, weight 75.3 kg (166 lb), SpO2 100 %. General: Well appearing, in NAD, slight generalized pallor Head: NCAT Eyes: anicteric, No conjunctival injection ENT: no OP lesions/exudates Neck: Supple, full ROM Heme: no cervical or axillary LAD or masses CV: RRR, no murmur Pulm: Non-labored, CTAB GI: ND, NABS, soft, slight TTP over epigastric/LUQ, no hepatosplenomegaly Skin: No rash noted Neurological: alert and oriented x 3, speech fluent, PERRL, EOMI Psychiatric: normal mood and affect Recent Results (from the past 24 hour(s)) Comprehensive metabolic panel (non-fasting) Result Value Ref Range Glucose Lvl 90 65 - 199 mg/dL BUN 22 (H) 8 - 18 mg/dL Creatinine 0.89 0.70 - 1.20 mg/dL Sodium 139 135 - 145 mmol/L Potassium 4.2 3.5 - 5.0 mmol/L Chloride 100 98 - 107 mmol/L CO2 20 (L) 22 - 31 mmol/L Anion Gap 19 (H) 5 - 15 mmol/L Calcium 9.5 8.5 - 10.5 mg/dL Total Protein 7.4 6.1 - 8.0 gm/dL Albumin 4.4 3.2 - 5.2 gm/dL AST 19 0 - 30 unit/L ALT 13 0 - 30 unit/L Alk Phos 131 (H) 40 - 104 unit/L Total Bilirubin <0.2 (L) 0.2 - 1.3 mg/dL Bili, Direct <0.1 0.0 - 0.3 mg/dL Estimated GFR >60 >=60 Ferritin Result Value Ref Range Ferritin 25 (L) 30 - 400 ng/mL Iron and TIBC Result Value Ref Range Iron 20 (L) 30 - 150 mcg/dL TIBC 456 (H) 250 - 450 mcg/dL Iron Saturation 4 (L) 20 - 50 % Reticulocyte Count Result Value Ref Range Retic Ct % 4.4 (H) 0.7 - 2.5 % Retic Ct Abs 0.150 (H) 0.020 - 0.110 x10(6)/mcL Immature Retic% 27.6 (H) 0.5 - 13.8 % Reticulated Hgb 22.5 (L) 29.8 - 39.4 pg Lactate Dehydrogenase Result Value Ref Range LDH 163 110 - 220 unit/L TSH Result Value Ref Range TSH 4.27 (H) 0.27 - 4.20 mlU/ML Hemogram Result Value Ref Range WBC 10.3 (H) 4.0 - 9.5 x10(3)/mcL RBC 3.34 (L) 4.00 - 5.21 x10(6)/mcL Hemoglobin 8.5 (L) 11.7 - 15.5 gm/dL Hematocrit 28.3 (L) 35.7 - 45.8 % MCV 84.7 82.6 - 94.4 fL MCH 25.4 (L) 27.1 - 32.0 pg MCHC 30.0 (L) 31.7 - 35.0 gm/dL Platelets 928 (H) 145 - 357 x10(3)/mcL RDWSD 47.8 (H) 37.0 - 46.0 fL RDWCV 15.8 (H) 11.5 - 14.1 % MPV 8.4 7.6 - 12.9 fL nRBC % Auto 0.0 % nRBC Abs Auto 0.000 0.000 - 0.000 x10(3)/mcL Differential, Automated Result Value Ref Range Neutrophils % 52.9 % Neutr Abs (ANC) 5.48 1.70 - 6.10 x10(3)/mcL Lymphocytes % 36.1 % Lymphocytes Abs 3.7 (H) 0.9 - 3.2 x10(3)/mcL Monocytes % 6.9 % Monocyte Abs 0.7 0.3 - 0.9 x10(3)/mcL Eosinophils % 2.7 % Eosinophils Abs 0.3 0.0 - 0.4 x10(3)/mcL Basophils % 0.9 % Basophils Abs 0.1 0.0 - 0.1 x10(3)/mcL Immature Gran % 0.50 % [place]ierra Gran Abs 0.05 (H) 0.00 - 0.04 x10(3)/mcL Lipid Panel Result Value Ref Range Chol, Total 291 (H) <=239 mg/dL Triglycerides 180 <=199 mg/dL HDL 72 >=40 mg/dL LDL Cholesterol 183 <=190 mg/dL Chol/HDL Ratio 4.0 ratio Lipid Interpretation See Note Hemoglobin A1c Result Value Ref Range Hemoglobin A1C 5.9 (H) 4.3 - 5.6 % Est Avg Gluc See note mg/dL Scan, Peripheral Blood Result Value Ref Range Plat Estimate Increased RBC Morphology Abnormal Microcytes 1-5 /HPF Hypochromia Slight Polychromasia Present >5/HPF Ovalocytes 1-5 /HPF Giant Platelets Less than 1 /HPF U Albumin/Cre Ratio Result Value Ref Range Alb/Cr Ratio, Random 6 0 - 29 mcg/mg Cr U Albumin Conc, Random 8.2 mg/L U Creatinine 142 mg/dL JAK2 mutation negative Bone Marrow Final 03/2015: DIAGNOSIS 1. Thrombocytosis, by history 2. Normocellular marrow with maturing trilineage hematopoiesis. No morphologic features ??of involvement by a myeloproliferative neoplasm ??are seen. Cytogenetics and molecular ??studies pending. Normal cytogenetics Myeloid Sequencing Panel (54-Gene Panel) SPECIMEN: ??[id number] Analysis: ??Examination of DNA extracted from peripheral blood or bone marrow aspirates for ??somatic mutation analysis. Results: ??This sample failed QC metrics post-sequencing. ?? If testing is warranted as per ??clinical indication, please contact the attending pathologist in order to resubmit an ??alternative tissue sample. Assessment and Recommendations 75 y.o. woman with iron deficiency anemia, reactive thrombocytosis, and mild lymphocytic leukocytosis. She was previously evaluated by hematology where JAK2 mutation was negative, bone marrow biopsy was negative for any MPN, and recommendation for capsule endoscopy revealed a small gastric erosion.We suspect that her anemia is multifactorial and largely due to iron deficiency with some prior chronic blood loss. She has very low iron stores and her daily PO iron has been insufficient to replaceher lost stores. Her thrombocytosis is reactive to the iron deficiency. Her leukocytosis may be reactive to her shingles but we will continue to monitor this. A previous marrow did not identify any ly mphocytic process like CLL. We recommended that for now, we aggressively replete her iron stores. Once she is off Eloquis, we can also consider GI evaluation with another EGD/capsule. She is agreeable. Plans: - additional IV iron sucrose 300 mg x 3 doses to be done here, start this week if possible - RTC ~3-4 weeks following completion of therapy to track ferritin - will need ongoing monitoring to assess iron losses She knows to call in the interim with questions/concerns. Shauna Cuadra DO Hematology-Oncology Fellow Pager [phone] 09/12/2016 4:31 PM CC. Roxy Mehta MD * Chris Jacobson MD - 09/12/2016 2:45 PM EDT I saw this patient with Dr Cuadra. I agree with the details of History and Physical Exam as documented in the above note. I was present for the critical portions of the history, exam and discussion ofour recommendations. It looks like her anemia and thrombocytosis reactive to iron deficiency. Would recommend IV iron replacement since oral replacement did not work for her in the past. Please see above note for full details. documented in this encounter Plan of Treatment Not on file documented as of this encounter Results * (ABNORMAL) Reticulocyte Count (10/03/2016 9:24 AM EDT) Retic Ct % 3.1(H) 0.7 - 2.5 % [facility] Retic Ct Abs 0.140(H) 0.020 - 0.110 x10(6)/mc L [facility] Immature Retic% 22.7(H) 0.5 - 13.8 % [facility] Reticulated Hgb 36.4 29.8 - 39.4 pg [facility] Blood specimen (specimen) 10/03/2016 9:24 AM EDT 10/03/2016 9:27 AM EDT Narrative Resulting Agency Comment Spec In Lab Chris Jacobson MD HEMATOLOGY ORDERABLE S [facility] [place] [address] * Ferritin (10/03/2016 9:24 AM EDT) [facility] Ferritin 400 30 - 400 ng/mL [facility] Comment: Pediatric reference ranges not verified at [facility], interpret with caution. Reference ranges for females greater than 50 years of age approach values for men, i.e., 30-400 ng/mL. Blood specimen (specimen) 10/03/2016 9:24 AM EDT 10/03/2016 9:27 AM EDT Narrative Resulting Agency Comment Spec In Lab Chris Jacobson MD CHEMISTRY ORDERABLES Performing Organization Address City/[facility]/ZIP Co de Phone Number [facility] [place] [address] * Iron and TIBC (10/03/2016 9:24 AM EDT) [facility] Iron 74 30 - 150 mcg/dL [facility] TIBC 358 250 - 450 mcg/dL [facility] Iron Saturation 21 20 - 50 % [facility] Blood specimen (specimen) 10/03/2016 9:24 AM EDT 10/03/2016 9:27 AM EDT Narrative Resulting Agency Comment Spec In Lab Chris Jacobson MD CHEMISTRY ORDERABLES [facility] [place] [address] * (ABNORMAL) Comprehensive metabolic panel (non-fasting) (10/03/2016 9:24 AM EDT) Glucose Lvl 106 65 - 199 mg/dL [facility] Comment:Diabetes: >=200 mg/d L plus symptoms BUN 14 8 - 18 mg/dL [facility] Creatinine 0.90 0.70 - 1.20 mg/dL [facility] Comment: Please note that the pediatric reference intervals supplied above were not validated at [facility]. Results from pediatric patients should be interpreted in conjunction to the patient's age, height and muscle mass. Sodium 139 135 - 145 mmol/L [facility] Potassium 4.2 3.5 - 5.0 mmol/L [facility] Comment: Please note: ??Patients with WBC >100,000 may have falsely elevated Potassium levels. ??For accurate Potassium quantification in these patients send serum separator tube (gold top) for subsequent determinations. ??Contact the Clinical Chemistry Laboratory if there are any questions. Chloride 97(L) 98 - 107 mmol/L [facility] CO2 22 22 - 31 mmol/L [facility] Anion Gap 20(H) 5 - 15 mmol/L [facility] Calcium 9.8 8.5 - 10.5 mg/dL [facility] Total Protein 7.5 6.1 - 8.0 gm/dL [facility] Albumin 4.3 3.2 - 5.2 gm/dL [facility] AST 13 0 - 30 unit/L [facility] ALT 16 0 - 30 unit/L [facility] Alk Phos 115(H) 40 - 104 unit/L [facility] Total Bilirubin <0.2(L) 0.2 - 1.3 mg/dL [facility] Bili, Direct <0.1 0.0 - 0.3 mg/dL [facility] Estimated GFR >60 >=60 [facility] Comment: This estimated GFR (eGFR) value was calculated using the MDRD equation which has been validated on patients between the ages of 18 and 70. The MDRD should not be used to assess kidney function in patients < 18 years of age or in patients with extremes of body mass, or in patients with acute kidney failure. This value should be multiplied by 1.2 for patients. For further information please copy and paste the following links into your internet browser. [email or web address]/DHnkdep [email or web address] Blood specimen (specimen) 10/03/2016 9:24 AM EDT 10/03/2016 9:27 AM EDT Narrative Resulting Agency Comment Spec In Lab Chris Jacobson MD CHEMISTRY ORDERABLES [facility] [place] [id number] documented in this encounter Visit Diagnoses Diagnosis Thrombocytosis Essential thrombocythemia Elevated TSH Other abnormal blood chemistry documented in this encounter Care Teams Grey Washer Relationship Specialty Start Date End Date Roxy Mehta MD [address] [place] [address] PCP - General 02/23/10 documented as of this encounter
--- OUTSIDE RECORDS SUMMARY | 2023-10-19 11:10 | XMS_ITS | Encounter Summary ---
Author Organization [facility] [address] Care Team Providers Care Rough Rounder Machine Name Role Phone Roxy Mehta MD Primary Care Provider [phone] Reason for Visit * Reason Comments Anemia Encounter Details Date Type Department Care Team (Latest Contact Info) Description 09/15/2016 8:17 AM EDT - 09/15/2016 11:59 PM EDT Hospital Encounter [place]ology [place] [address] Iron deficiency anemia, unspecified iron deficiency anemia [...] Sign Reading Time Taken Comments Blood Pressure 116/65 09/15/2016 8:42 AM EDT Pulse 102 09/15/2016 8:42 AM EDT Temperature 36.6 ??C (97.9 ??F) 09/15/2016 8:42 AM ED T Respiratory Rate 18 09/15/2016 8:42 AM EDT Oxygen Saturation 98% 09/15/2016 8:42 AM EDT Inhaled Oxygen Concentration - - Weight - - Height - - Body Mass Index - - documented in this encounter Medications at Time of Discharge Medication Sig Dispensed Refills Start Date End Date fluticasone propionate (Flonase) 50 mcg/actuation [place], Suspension Daily 07/12/2012 cholecalciferol, Vitamin D3, 50 [...] as of this encounter Progress Notes * Najma Burns, MARCO - 09/15/2016 9:02 AM EDT Patient Name: Patricia Liu Patient Age: 75 y.o. Birthdate: 1940 Admit date: 09/15/2016 Attending Physician: No att. providers found TIME TREATMENT STARTED: 0830 TIME TREATMENT ENDED: 1130 Patricia Liu, 75 y.o. female with diagnosis of arsh is here for infusion of venofer. S: Pt. offers no complaints at this time. O: orders independently verified for correct drug name, route and dosage per patient's height, weight and BSA by Gabriel Burns RN and onsite pharmacist REACTIONS (DESCRIPTION, TIME, INTERVENTION AND EFFECTIVENESS) none A: Pt. Tolerated treatment well. Patricia Liu confirms that all questions and issues have been addressed. P: Return to clinic prn documented in this encounter Miscellaneous Notes * Addendum Note - Najma Burns RN - 09/15/2016 12:21 PM EDTEncounter addended by: Najma Burns RN on: 09/15/2016 12:21 PM
Actions taken: Charge Capture section accepted documented in this encounter Plan of Treatment [...] mg, Intravenous, ONCE, 1 dose, On Hilda 09/15/16 at 0830, Administer over 120 Minutes, Patients should be closely monitored for signs of hypersensitivity during and for at least 30 min after each administration. Given 09/15/2016 8:54 AM EDT 300 mg 132.5 mL/hr documented in this encounter Care Teams Rough Rounder Machine Relationship Specialty Start Date End Date Roxy Mehta MD [address] [place] [address] [address] [place] [address] PCP - General 02/23/10 documented as of this encounter
--- OUTSIDE RECORDS SUMMARY | 2023-10-19 11:10 | XMS_ITS | Encounter Summary ---
Author Organization [facility] Address [facility] [place] [address] Care Team Providers Care Operations Director Name Role Phone Roxy Mehta MD Primary Care Provider [phone] Encounter Details Date Type Department Care Team (Late st Contact Info) Description 05/08/2020 [place] [id number] Abimael Mascorro MD [facility] [place] [address] REED (dyspnea on exertion); Acute pulmonary embolism without acute cor pulmonale, unspecified pulmonary embolism type; Chronic obstructive pulmonary disease, unspecified COPD type Social History Tobacco Use Types Packs/Day Years Used Date Smoking Tobacco: Former Smokeless Tobacco: Never Comments: Sex and Gender Information Value Date Recorded Sex Assigned at Female 07/30/2020 12:05 PM EDT Gender Identity Female 07/30/2020 12:05 PM EDT Sexual Orientation Straight 07/30/2020 12 :05 PM EDT documented as of this encounter Plan of Treatment Not on file documented as of this encounter Visit Diagnoses Diagnosis REED (dyspnea on exertion) Other dyspnea and respiratory abnormality Acute pulmonary embolism without acute cor pulmonale, unspecified pulmonary embolism type Chronic obstructive pulmonary disease, unspecified COPD type documented in this encounter Care Teams Operations Director Relationship Specialty Start Date End Date Roxy Mehta MD [address] [place] [address] [address] [place] [address] PCP - General 02/23/10 documented as of this encounter
--- OUTSIDE RECORDS SUMMARY | 2023-10-19 11:10 | XMS_ITS | Encounter Summary ---
Author Organization [facility] [place] [address] Care Team Providers Care Extrusion Utility Worker Name Role Phone Roxy Mehta MD Primary Care Provider [phone] Encounter Details Date Type Department Care Team (Latest Contact Info) Description 09/22/2016 8:14 AM EDT - 09/22/2016 11:59 PM EDT Hospital Encounter [place]ematology [place] [address] Anemia, unspecified type Discharge Disposition: Home Social History Tobacco Use Types Packs/Day Years Used Date Smoking Tobacco: Former Comments:1060's Sex and Gender Information Value Date Recorded Sex Assigned at Female 07/30/2020 12:05 PM EDT Gender Identity Female 07/30/2020 12:05 PM EDT Sexual Orientation Straight 07/30/2020 12 :05 PM EDT documented as of this encounter Last Filed Vital Signs Vital Sign Reading Time Taken Comments Blood Pressure 132/68 09/22/2016 8:29 AM EDT Pulse 94 09/22/2016 8:29 AM EDT Temperature 36.2 ??C (97.2 ??F) 09/22/2016 8:29 AM ED T Respiratory Rate 17 09/22/2016 8:29 AM EDT Oxygen Saturation 98% 09/22/2016 8:29 AM EDT Inhaled Oxygen Concentration - - Weight - - Height - - Body Mass Index - - documented in this encounter Medications at Time of Discharge Medication Sig Dispensed Refills Start Date End Date fluticasone propionate (Flonase) 50 mcg/actuation [place], Suspension Daily 07/12/2012 cholecalciferol, Vitamin D3, 50 [...] as of this encounter Progress Notes * Frannie Castro RN - 09/22/2016 8:37 AM EDT Patient Name: Patricia Liu Patient Age: 75 y.o. Birthdate: 1940 Admit date: 09/22/2016 Attending Physician: Christin att. providers found TIME TREATMENT STARTED: 0830 TIME TREATMENT ENDED: 1110 Patricia Liu, 75 y.o. female with diagnosis of anemia is here for an infusion of Venofer. PROTOCOL: 300mg IV iron x3 doses. Pt is here for dose #2 of 3. S: Pt continues to complain of fatigue. She states that she was hoping to feel increased energy after 1st dose, however this did not happen. O: Orders independently verified for correct drug name, route and dosage per patient's height, weight and BSA by Frannie Castro RN and onsite pharmacist REACTIONS (DESCRIPTION, TIME, INTERVENTION AND EFFECTIVENESS) None, pt tolerated infusion well. No s/s of reaction during 30 minute post- infusion observation. A: Pt. Tolerated treatment well. Patricia Liu confirms that all questions and issues have been addressed. P: Return to clinic as scheduled. documented in this encounter Plan of Treatment Not on file documented as of this encounter Visit Diagnoses Diagnosis Anemia, unspecified type documented in this encounter Administered Medications Inactive Administered Medications - up to 3 most recent administrations Medication Order MAR Action Action Date Dose Rate Site iron sucrose (VENOFER) 300 mg in sodium chloride 0.9% 265 mL 300 mg, Intravenous, ONCE, 1 dose, On Hilda 09/22/16 at 0830, Administer over 120 Minutes, Patients should be closely monitored for signs of hypersensitivity during and for at least 30 min after each administration. Given 09/22/2016 8:32 AM EDT 300 mg 132.5 mL/hr documented in this encounter Care Teams Extrusion Utility Worker Relationship Specialty Start Date End Date Roxy Mehta MD [address] [place] [address] PCP - General 02/23/10 documented as of this encounter
--- OUTSIDE RECORDS SUMMARY | 2023-10-19 11:10 | XMS_ITS | Encounter Summary ---
Author Organization [facility] Address [facility] [place] [address] Care Team Providers Care Suspender Cutter Name Role Phone Roxy Mehta MD Primary Care Provider [phone] Reason for Visit * Reason Comments Skin Check Encounter Details Date Type Department Care Team (Late st Contact Info) Description 01/03/2019 2:15 PM EDT Office Visit Dermatology at [address] [phone] Joyce Beck [facility] [place] [address] SKs (seborrheic keratoses); Seborrheic keratosis, inflamed; Solar lentigo; Giordano angioma; Skin tag Social History Tobacco Use Types Packs/Day Years Used Date Smoking Tobacco: Former Smokeless Tobacco: Never Comments:1960s Sex and Gender Information Value Date Recorded Sex Assigned at Female 07/30/2020 12:05 PM EDT Gender Identity Female 07/30/2020 12:05 PM EDT Sexual Orientation Straight 07/30/2020 12 :05 PM EDT documented as of this encounter Progress Notes * Joyce Beck MD - 01/03/2019 2:15 PM EDT DERMATOLOGY ESTABLISHED PATIENT CLINIC NOTE Date of service: 01/03/2019 Patricia Liu : 1940 Provider: Joyce Beck MD Preferred name: Preferred contact method with results: Message okay: Yes PROBLEM: Full Skin SKIN HISTORY: SK AK HPI Ms. Liu is a 78 y.o. year old female. Established patient, last seen 12/12/2017. Here today for full skin exam with no concerns. ADR: Patient has no known allergies. MEDS: Current Outpatient Medications on File Prior to Visit Medication Sig Dispense Refill ??? apixaban (ELIQUIS) 5 mg Tablet Take 5 mg by mouth 2 times daily. ??? ferrous sulfate 325 mg (65 mg iron) Tablet Take 325 mg by mouth daily (with breakfast). ??? aspirin 81 mg Tablet, Delayed Release (E.C.) Take 81 mg by mouth daily. Reported on 10/03/2016 ??? Calcium Citrate-Vitamin D3 200 mg calcium [...] Nasacort 1 Puff(s), Nasal, Twice daily PRN (Patient not taking: No sig reported) ??? CIS Free Text Med - Albuterol (Refill) (Patient not taking: No sig reported) ??? CIS Free Text Med - Vagifem 25MCG = 1 Tablet(s), Vag, Every other day ??? metFORMIN (GLUCOPHAGE) 1,000 mg tablet 1000MG = 1 Tablet(s), PO, Twice daily No current facility-administered medications on file prior to visit. ROS General: feeling well Skin: denies other skin complaints EXAM General: NAD, pleasant, cooperative Skin: The patient was asked to disrobe to the level of their comfort. Full skin examination of the scalp, hair, head, face, neck, back, chest, abdomen, right and left upper extremities, right and left lower extremities and buttocks was normal with the exception of the findings listed below. Significant skin findings: A. Multiple 0.4-0.6cm brown papules with waxy, stuck-on appearance B. Verrucous stuck on papule with surrounding erythema located on the right catholic x1 C. Sun exposed areas: 0.3-0.6cm light-brown evenly pigmented, well-demarcated macules. D. Multiple 0.2-0.4cm bright red, well-demarcated papules E. Fleshy pedunculated papule located on neck ASSESSMENT/PLAN: A. Seborrheic Keratoses - Benign. No treatment necessary. - Reassured about benign nature and natural history. B. Irritated Seborrheic Keratosis - Benign, but symptomatic. Procedure Note: Procedure: Destruction of lesions with cryotherapy. Number: 1 Location: as above Discussed procedure and expectations including risks (including risk of hypopigmentation) and benefits. Verbal consent obtained. Frozen with LN2, 15-30 second thaw time, TWICE. There were no complications; the patient tolerated the procedure well. Post-procedure expectations and wound care were reviewed. C. Solar Lentigines - Benign. No treatment necessary. - Reassured about benign nature and natural history. - Sun avoidance, protective clothing and the use of SPF 30+ sunscreen is advised. Observe closely for skin changes and call if such occurs. D. Giordano Angiomas - Benign. No treatment necessary. - Reassured about benign nature and natural history. E. Skin Tags - Benign. No treatment necessary. - Reassured about benign nature and natural history. -- recommended OTC tag away RTC 1 year for FSE Note initiated and routed to physician for review and change by: Lindsay Kennedy LPN I, Maximus Hughes, have performed the documentation for this encounter in the presence of and actingas a scribe for JOYCE BECK MD. I performed the services which were documented by the scribe, and I agree with the accuracy of the documentation in this encounter. JOYCE BECK MD. Joyce Beck MD Section of Dermatology [facility] documented in this encounter Plan of Treatment Not on file documented as of this encounter Visit Diagnoses Diagnosis SKs (seborrheic keratoses) Other seborrheic keratosis Seborrheic keratosis, inflamed Inflamed seborrheic keratosis Solar lentigo Other dyschromia Giordano angioma Nevus, non-neoplastic Skin tag Unspecified hypertrophic and atrophic condition of skin documented in this encounter Care Teams Suspender Cutter Relationship Specialty Start Date End Date Roxy Mehta MD [address] [place] [address] PCP - General 02/23/10 documented as of this encounter
--- OUTSIDE RECORDS SUMMARY | 2023-10-19 11:10 | XMS_ITS | Encounter Summary ---
Author Organization [facility] [place] [address] Care Team Providers Care Vacuum Pan Operator Name Role Phone Roxy Mehta MD Primary Care Provider [phone] Encounter Details Date Type Department Care Team (Late st Contact Info) Description 12/10/2020 1:00 PM EDT Office Visit Hematology/Oncology at [address] [phone] Chris Jacobson MD [facility] HEMATOLOGY/[place] [address] Flor Coleman CASING IN LINE SETTER [address] [place] [address] [place] [address] Iron deficiency anemia, unspecified iron deficiency anemia [...] Sign Reading Time Taken Comments Blood Pressure 151/82 12/10/2020 12:59 PM EDT Pulse 85 12/10/2020 12:59 PM EDT Temperature 36.7 ??C (98.1 ??F) 12/10/2020 12:59 PM E DT Respiratory Rate 16 12/10/2020 12:59 PM EDT Oxygen Saturation 99% 12/10/2020 12:59 PM EDT Inhaled Oxygen Concentration - - Weight 80.3 kg (177 lb) 12/10/2020 12:59 PM EDT Height 159 cm (5' 2.6) 12/10/2020 12:59 PM EDT Body Mass Index 31.76 12/10/2020 12:59 PM EDT documented in this encounter Progress Notes * Chrsi Jacobson MD - 12/10/2020 1:00 PM EDT Subjective: Patient ID: Patricia Liu is a 79 y.o. female. HPI The patient is a 79-year-old female who I am seeing in the [facility]. She has a history of chronic elevation of her platelet count. I saw her once in 2014 and again in 2016. She had a bone marrow aspirate and biopsy in 2014 that did not show any evidence of a myeloproliferative neoplasm. She has been intermittently iron deficient and we felt her thrombocytosis was most likely reactive. She saw Dr. Carballo earlier this year because of another pulmonary embolism. She is currently on Eliquis. Likely to be on it for life. She did get intravenous iron in 2016 and her platelet count improved. She got another course of intravenous iron from her primary care doctor in June of this year. Her platelet count did improve after that as well. Her most recent ferritin was still borderline. She is taking oral iron. She takes ferrous sulfate daily. She did have a work-up of her GI tract including a capsule study in 2015 which did not reveal any sinister source of GI blood loss. She is planning a knee replacement surgery coming up in about 4 5 days. She did have labs done for her primary care doctor today. Patient Active Problem List Diagnosis Code ??? Thrombocytosis D47.3 ??? Iron deficiency anemia D50.9 ??? 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 omeprazole 20 mg Tablet, Delayed Release (E.C.), Take 20 mg by mouth daily., Disp: , Rfl: ??? fluticasone propionate (Flonase Allergy Relief) 50 mcg/actuation [place], Suspension, Daily, Disp: , Rfl: ??? levothyroxine (Synthroid) 50 mcg Tablet, Take 50 mcg by mouth daily., Disp: , Rfl: ??? cholecalciferol, Vitamin D3, 50 mcg (2,000 unit) Capsule, 2,000 Units daily., Disp: , Rfl: ??? estradioL (VAGIFEM) 10 mcg Tablet, Place vaginally. 3 times weekly, Disp: , Rfl: ??? inhalational spacing device Spacer, .MEDSUPPLY, Disp: , Rfl: ??? losartan potassium (LOSARTAN ORAL), Take 50 mg by mouth daily., Disp: , Rfl: ??? apixaban (ELIQUIS) 5 mg Tablet, Take 2.5 mg by mouth 2 times daily., Disp: , Rfl: ??? ferrous sulfate 325 mg (65 mg iron) Tablet, Take 325 mg by mouth daily (with breakfast)., Disp:, Rfl: ??? Calcium Citrate-Vitamin D3 200 mg calcium -250 unit Tablet, Take by mouth., Disp: , Rfl: ??? albuteroL 90 mcg/actuation HFA Aerosol Inhaler, INHALE TWO PUFFS BY MOUTH FOUR TIMES A DAY NEEDED FOR SHORTNESS OF BREATH OR WHEEZING, Disp: , Rfl: No Known Allergies Review of Systems [...] Mood normal. Labs from today White count 7.6, hemoglobin 13.4, platelets 487 Creatinine 0.9, serum iron 45 Assessment and Plan: 79-year-old female who has had intermittent thrombocytosis likely reactive to recurrent iron deficiency. Her most recent ferritins were borderline at 32 and her serum iron today is also somewhat borderline. She is taking oral iron and may well be keeping up with her losses but she may be getting iron deficiency as well. Given that her platelet count is not elevated I doubt that she has significant iron deficiency especially since her hemoglobin remains normal. I did talk about a couple strategies for her. I am going to monitor her about every 3 months with aCBC and a ferritin. If her ferritin gets below 50 I would recommend intravenous iron to push it back up. In the meantime she is going to remain on oral iron. There is some evidence that taking it every other day will increase absorption so I recommended that she drop down to the iron tablet on Wednesdays and Fridays and see if that can maintain her iron stores adequately. I will plan to see her back in about 3 months with repeat labs. If she has more problems I would behappy to see her sooner. * Tere Love RN - 12/10/2020 1:00 PM EDT MEDICAL ONCOLOGY INITIAL NURSING ASSESSMENT ADVANCE DIRECTIVES: In [facility] [ ] Has documents [ ] Will bring in [ ] . No ACP IF NO: Advance Directive pamphlet provided : Referral to Care Management : PRESENTING SYSTEMS and PATHOLOGY: as per Dr. Jacobson REVIEW OF SYSTEMS: as per Dr. Jacobson Prior Radiotherapy: no[ x ] Yes[ ]Site Date Facility Prior Chemotherapy: no[ x ] Yes[ ] Drug: Oncologist- LastTreatment: NO: YES: Claustrophobia or requires sedation for MRIs x Allergy to CT or MRI contrast agent or iodine or shellfish x Diabetic and on metformin x Metal in body, implanted device, worked with metal, body piercings,braces x Dentures or hearing device x Pacemaker x Difficulty breathing while lying flat x Kidney problems/creatinine x Balance difficulty: [ ]no [x ]yes At risk for fall: [ ] no [ ] yes If yes, actions implemented to prevent fall. Patient/family instructed to avoid independent ambulation. Use wheelchair and ask for assistance of staff while in the clinic. ADL [x ] no limits [ ] needs dressing assistance [ ] needs meal assistance Assistive device:[ ]none [x ]cane [ ]walker [ ]wheelchair [ ]other: explain PAIN ASSESSMENT: [ 3-4 ] out of 10 Location: right knee Description: [ ] Dull [ ] Sharp [ ] Burning [ x ] Throbbing [ ] Radiating [ ] Continuous [ ]Intermittent Aggravating Factors: [x ] Movement [ x ] Position [ ]Immobility [ ]Other Alleviating Factors: [ ]Medication [ ] Positioning [ ] Other Current Pain Management Plan: [ ]Satisfied [x ] Not satisfied. Having knee replacement soon SOCIAL ASSESSMENT: See ED[facility] social assessment information entered. Support Systems: has support transportation plan: [x ]private vehicle [ ] RCT needs Social Work referral [ ] Unknown at this time needs Social Work referral Barriers to treatment: none Referrals/Interventions: NA LEARNING STYLE: Visual and verbal, wants written material and verbal discussion. TEACHING: __ NCI ???Chemotherapy and You?? and folder given __ Specific chemotherapy literature provided and reviewed with patient documented in this encounter Plan of Treatment Not on file documented as of this encounter Visit Diagnoses Diagnosis Iron deficiency anemia, unspecified iron deficiency anemia type Reactive thrombocytosis documented in this encounter Care Teams Vacuum Pan Operator Relationship Specialty Start Date End Date Roxy Mehta MD [address] [place] [address] [address] [facility] [place] [address] PCP - General 02/23/10 documented as of this encounter
--- OUTSIDE RECORDS SUMMARY | 2023-10-19 11:10 | XMS_ITS | Encounter Summary ---
Author Organization [facility] [place] [address] Care Team Providers Care Otr Owner Operator Name Role Phone Roxy Mehta MD Primary Care Provider [phone] Encounter Details Date Type Department Care Team (Latest Contact Info) Description 08/11/2020 12:18 PM EDT - 08/11/2020 11:59 PM EDT Hospital Encounter Hematology [place] [address] VTE (venous thromboembolism); Iron deficiency anemia, unspecified iron deficiency anemia type Discharge Disposition: Home Social History Tobacco Use Types Packs/Day Years Used Date Smoking Tobacco: Former Cigarettes Smokeless Tobacco: Never Comments:1960s Sex and Gender Information Value Date Recorded Sex Assigned at Female 07/30/2020 12:05 PM EDT Gender Identity Female 07/30/2020 12:05 PM EDT Sexual Orientation Straight 07/30/2020 12 :05 PM EDT documented as of this encounter Medications at Time of Discharge Medication Sig Dispensed Refills Start Date End Date fluticasone propionate (Flonase) 50 mcg/actuation [place], Suspension Daily 07/12/2012 levothyroxine (Synthroid) 50 mcg [...] Procedure Name Priority Date/Time Associated Diagnosis Comments SILICA CLOTTING TIME Routine 08/11/2020 12:37 PM EDT VTE (venous thromboembolism) DRVVT Routine 08/11/2020 12:37 PM EDT VTE (venous thromboembolism) TT Routine 08/11/2020 12:37 PM EDT VTE (venous thromboembolism) PTT Routine 08/11/2020 12:37 PM EDT VTE (venous thromboembolism) PT Routine 08/11/2020 12:37 PM EDT VTE (venous thromboembolism) FIBR Routine 08/11/2020 12:37 PM EDT VTE (venous thromboembolism) HC HOMOCYSTEINE Routine 08/11/2020 12:37 PM EDT VTE (venous thromboembolism) THS REPORT Routine 08/11/2020 12:37 PM EDT VTE (venous thromboembolism) PROTEIN S ACTIVITY Routine 08/11/2020 12 :37 PM EDT HEMOGRAM Routine 08/11/2020 12:37 PM EDT Iron deficiency anemia, unspecified iron deficiency anemia type DIFFERENTIAL, AUTOMATED Routine 08/11/2020 12:37 PM EDT Iron deficiency anemia, unspecified iron deficiency anemia type APC RESISTANCE Routine 08/11/2020 12:37 PM EDT HC IRON BINDING CAPACITY Routine 08/11/2020 12:37 PM EDT Iron deficiency anemia, unspecified iron deficiency anemia type BETA-2 GLYCOPROTEIN ANTIBODIES Routine 08/11/2020 12:37 PM EDT VTE (venous thromboembolism) PROTEIN C ACTIVITY Routine 08/11/2020 12 :37 PM EDT CARDIOLIPIN ANTIBODY SCREEN Routine 08/11/2020 12:37 PM EDT VTE (venous thromboembolism) ANTITHROMBIN Routine 08/11/2020 12:37 PM EDT HC CBC,PLT & AUTO DIFF Routine 08/11/2020 12:37 PM EDT Iron deficiency anemia, unspecified iron deficiency anemia type HOMOCYSTEINE TOTAL, PLASMA Routine 08/11/2020 12:37 PM EDT VTE (venous thromboembolism) HC FERRITIN, SERUM Routine 08/11/2020 12 :37 PM EDT Iron deficiency anemia, unspecified iron deficiency anemia type THROMBOSIS SCREEN REPORT Routine 08/11/2020 12:20 PM EDT documented in this encounter Results * Protein S Activity (08/11/2020 12:37 PM EDT) Protein S Act 129 64 - 149 % activity [facility] Blood specimen (specimen) Venous Draw / Unknown 08/11/2020 12:37 PM EDT 08/11/2020 1:14 PM EDT Narrative Resulting Agency Comment Spec In Lab Wendy Espana MD HEMATOLOGY ORDERABLE S [facility] [place] [address] * (ABNORMAL) Protein C activity (08/11/2020 12:37 PM EDT) Protein C Act >150(H) 70 - 140 % [facility] Blood specimen (specimen) Venous Draw / Unknown 08/11/2020 12:37 PM EDT 08/11/2020 1:14 PM EDT Narrative Resulting Agency Comment Spec In Lab Wendy Espana MD HEMATOLOGY ORDERABLE S [facility] [place] [address] * (ABNORMAL) Antithrombin (08/11/2020 12:37 PM EDT) Antithrombin >150(H) 83 - 128 % [facility] Blood specimen (specimen) Venous Draw / Unknown 08/11/2020 12:37 PM EDT 08/11/2020 1:14 PM EDT Narrative Resulting Agency Comment Spec In Lab Wendy Espana MD HEMATOLOGY ORDERABLE S [facility] [place] [address] * APC resistance (08/11/2020 12:37 PM EDT) Pathologist [facility] APC Resistance 3.10 >=2.54 [facility] Blood Venous Draw / Unknown 08/11/2020 12:37 PM EDT 08/11/2020 1:14 PM EDT Narrative Resulting Agency Comment Spec In Lab Wendy Espana MD HEMATOLOGY ORDERABLE S Performing Organization Address City/[facility]/ZIP Co de Phone Number [facility] [place] [address] * Differential, Automated (08/11/2020 12:37 PM EDT) [facility] Neutrophils % 58.2 % [facility] Neutr Abs (ANC) 5.54 1.70 - 6.10 x10(3)/[facility] Lymphocytes % 31.0 % [facility] Lymphocytes Abs 3.0 0.9 - 3.2 x10(3)/[facility] Monocytes % 8.9 % [facility] Monocyte Abs 0.8 0.3 - 0.9 x10(3)/[facility] Eosinophils % 0.9 % [facility] Eosinophils Abs 0.1 0.0 - 0.4 x10(3)/[facility] Basophils % 0.8 % [facility] Basophils Abs 0.1 0.0 - 0.1 x10(3)/[facility] Immature Gran % 0.20 % [facility] Comment: Immature granulocytes(IG's)percentage and absolute count will include metamyelocytes, myelocytes, and promyelocytes. Blood smears from CBCs yielding IG's will be scanned manually for concordance. If this scan disagrees with the automated IG or if promyelocytes are noted, a manual differential will be performed. [place] Gran Abs 0.02 0.00 - 0.04 x10(3)/[facility] Blood specimen (specimen) 08/11/2020 12:37 PM EDT 08/11/2020 1:14 PM EDT Narrative Resulting Agency Comment Spec In Lab Wendy Espana MD HEMATOLOGY ORDERABLE S [facility] [place] [address] * (ABNORMAL) Hemogram (08/11/2020 12:37 PM EDT) WBC 9.5 4.0 - 9.5 x10(3)/[facility] RBC 5.13 4.00 - 5.21 x10(6)/[facility] Hemoglobin 13.9 11.7 - 15.5 gm/dL [facility] Hematocrit 44.2 35.7 - 45.8 % [facility] MCV 86.2 82.6 - 94.4 [facility] MCH 27.1 27.1 - 32.0 pg [facility] MCHC 31.4(L) 31.7 - 35.0 gm/dL [facility] Platelets 492(H) 145 - 357 x10(3)/[facility] RDWSD 59.7(H) 37.0 - 46.0 [facility] RDWCV 18.6(H) 11.5 - 14.1 % [facility] MPV 9.3 7.6 - 12.9 [facility] nRBC % Auto 0.0 % [facility] nRBC Abs Auto 0.000 0.000 - 0.000 x10(3)/[facility] Blood specimen (specimen) 08/11/2020 12:37 PM EDT 08/11/2020 1:14 PM EDT Narrative Resulting Agency Comment Spec In Lab Wendy Espana MD HEMATOLOGY ORDERABLE S Performing Organization Address City/[facility]/ZIP Co de Phone Number [facility] [place] [address] * Beta-2 glycoprotein antibodies (08/11/2020 12:37 PM EDT) B2GPI IgG <9.4 <=20.0 unit(s) [facility] B2GPI IgM <9.4 <=20.0 unit(s) [facility] B2GPI Interp See Thrombosis Screen Report [id number] Hematopatholo gy Reports. [facility] Blood specimen (specimen) 08/11/2020 12:37 PM EDT 08/12/2020 7:29 AM EDT Narrative Resulting Agency Comment Spec In Lab Wendy Espana MD IMMUNOLOGY ORDERABLE S Performing Organization Address [facility] Co de Phone Number [facility] [place] [address] * Homocysteine Total, Plasma (08/11/2020 12:37 PM EDT) Homocyst Tot 11 <=15 mcmol/L [facility] Blood specimen (specimen) 08/11/2020 12:37 PM EDT 08/11/2020 1:14 PM EDT Narrative Resulting Agency Comment Spec In Lab Wendy Espana MD CHEMISTRY ORDERABLES Performing Organization Address [facility]/ZIP Co de Phone Number [facility] [place] [address] * Cardiolipin Antibody Screen (08/11/2020 12:37 PM EDT) Cardiolipin IgG <9.4 <=14.9 GPL unit(s) [facility] Comment: Ranges ?? GPL ------ ?? --- Negative ?? <=14.9 Indeterminate ??15.0 - 20.0 Low/Medium Positive 20.1 - 80.0 High Positive ??>80.0 Cardiolipin IgM <9.4 <=12.5 MPL unit(s) [facility] Comment: Ranges ?? MPL ------ ?? --- Negative ?? <=12.5 Indeterminate ??12.6 - 20.0 Low/Medium Positive 20.1 - 80.0 High Positive ??>80.0 Blood specimen (specimen) 08/11/2020 12:37 PM EDT 08/12/2020 7:29 AM EDT Narrative Resulting Agency Comment Spec In Lab Wendy Espana MD IMMUNOLOGY ORDERABLE S Performing Organization Address [facility]/ZIP Co de Phone Number [facility] [place] [address] * THS Report (08/11/2020 12:37 PM EDT) THS Report See Comment [facility] Comment:See Thrombosis Scree n Report [id number] under Hematopathology Reports. Blood 08/11/2020 12:3 7 PM EDT 08/11/2020 1:14 PM EDT Narrative Resulting Agency Comment Spec In Lab Wendy Espana MD HEMATOLOGY ORDERABLE S Performing Organization Address City/[facility]/ZIP Co de Phone Number [facility] [place] [address] * dRVVT (08/11/2020 12:37 PM EDT) dRVVT 0.86 <=1.20 IU/mL [facility] Comment: A result greater than 1.20 TR is consistent with the presence of lupus anticoagulant. Values of 1.20 to 1.30 in this assay are not definitively positive or negative for the presence of a lupus anticoagulant. The DRVVT ratio may be falsely elevated in patients on anticoagulants, especially heparins and direct oral anticoagulants. An abnormal test result in an anticoagulated patient must therefore be interpreted with caution, and repeat testing after discontinuing anticoagulation may be appropriate. Blood specimen (specimen) 08/11/2020 12:37 PM EDT 08/11/2020 1:14 PM EDT Narrative Resulting Agency Comment Spec In Lab Wendy Espana MD HEMATOLOGY ORDERABLE S Performing Organization Address [facility] Co de Phone Number [facility] [place] [address] * Silica Clotting Time (08/11/2020 12:37 PM EDT) Silica Clotting Time 1.13 <=1.16 ratio [facility] Comment: A result greater than 1.16 TR is consistent with the presence of lupus anticoagulant. Values of 1.16 to 1.24 in this assay are not definitively positive or negative for the presence of a lupus anticoagulant. The SCT ratio may be falsely elevated in patients on anticoagulants, especially heparins and direct oral anticoagulants. An abnormal test result in an anticoagulated patient must therefore be interpreted with caution, and repeat testing after discontinuing anticoagulation may be appropriate. Blood specimen (specimen) 08/11/2020 12:37 PM EDT 08/11/2020 1:14 PM EDT Narrative Resulting Agency Comment Spec In Lab Wendy Espana MD HEMATOLOGY ORDERABLE S Performing Organization Address [facility] Co de Phone Number [facility] [place] [address] * TT (08/11/2020 12:37 PM EDT) Thrombin Time 14 10 - 17 sec [facility] Comment: A prolongation in the thrombin time (>20 seconds) may be indicative of hypofibrinogenemia or dysfibrinogenemia. The thrombin time will be prolonged, often markedly so, by the presence of heparin or direct thrombin inhibitors (argatroban, bivalirudin, dabigatran) in the specimen. Blood specimen (specimen) 08/11/2020 12:37 PM EDT 08/11/2020 1:14 PM EDT Narrative Resulting Agency Comment Spec In Lab Wendy Espana MD HEMATOLOGY ORDERABLE S Performing Organization Address [facility] Co de Phone Number [facility] [place] [address] * (ABNORMAL) FIBR (08/11/2020 12:37 PM EDT) Fibrinogen 465(H) 200 - 393 mg/dL [facility] Comment: A fibrinogen level >100 mg/dL is adequate for hemostasis in most patients without underlying bleeding disorders. Blood specimen (specimen) 08/11/2020 12:37 PM EDT 08/11/2020 1:14 PM EDT Narrative Resulting Agency Comment Spec In Lab Wendy Espana MD HEMATOLOGY ORDERABLE S Performing Organization Address [facility] Co de Phone Number [facility] [place] [address] * PTT (08/11/2020 12:37 PM EDT) PTT 34 25 - 37 sec [facility] Comment: The PTT is NOT appropriate for heparin monitoring. Use the Anti-Xa level for heparin monitoring (HEP UFH) or LMWH monitoring (HEP LMW). A PTT less than 37 seconds generally indicates adequate hemostasis. Blood specimen (specimen) 08/11/2020 12:37 PM EDT 08/11/2020 1:14 PM EDT Narrative Resulting Agency Comment Spec In Lab Wendy Espana MD HEMATOLOGY ORDERABLE S Performing Organization Address [facility] Co de Phone Number [facility] [place] [address] * (ABNORMAL) PT (08/11/2020 12:37 PM EDT) PT 13.0(H) 9.4 - 12.5 sec [facility] INR 1.1 [facility] Comment: An INR <2.0 indicates adequate procoagulant activity for hemostasis in most patients without underlying bleeding disorders, though the INR may not adequately reflect hemostatic capacity in patients with liver disease and synthetic impairment. The recommended target INR range for therapeutic anticoagulation is 2.0 ? 3.0 for most applications, though lower and higher ranges may be appropriate depending on clinical circumstances. Blood specimen (specimen) 08/11/2020 12:37 PM EDT 08/11/2020 1:14 PM EDT Narrative Resulting Agency Comment Spec In Lab Wendy Espana MD HEMATOLOGY ORDERABLE S Performing Organization Address [facility] Co de Phone Number [facility] [place] [address] * Iron and TIBC (08/11/2020 12:37 PM EDT) Iron 81 30 - 150 mcg/dL [facility] TIBC 383 250 - 450 mcg/dL [facility] Iron Saturation 21 20 - 50 % [facility] Blood specimen (specimen) 08/11/2020 12:37 PM EDT 08/11/2020 1:14 PM EDT Narrative Resulting Agency Comment Spec In Lab Wendy Espana MD CHEMISTRY ORDERABLES Performing Organization Address [facility] Co de Phone Number [facility] [place] [address] * Ferritin (08/11/2020 12:37 PM EDT) Ferritin 32 30 - 400 ng/mL [facility] Comment: Pediatric reference ranges not verified at [facility], interpret with caution. Reference ranges for females greater than 50 years of age approach values for men, i.e., 30-400 ng/mL. Blood specimen (specimen) 08/11/2020 12:37 PM EDT 08/11/2020 1:14 PM EDT Narrative Resulting Agency Comment Spec In Lab Wendy Espana MD CHEMISTRY ORDERABLES [facility] [place] [address] * Thrombosis Screen Report (08/11/2020 12:20 PM EDT) Thrombosis Screen Report [id number] ? Location: 3K The signing pathologist has (i) examined the relevant preparation(s) for the specimen(s) and (ii) rendered or confirmed the diagnosis(es). . ? Thrombosis Screen DIAGNOSIS 1. Thrombocytosis. 2. Increased fibrinogen level. 3. ??No evidence for the presence of common hereditary/acquired hematologic ?? risk factors associated with unexplained venous thromboembolism (see ?? Discussion). Correction Note: ??This report is modified on 09/02/20 11:30 by Steffanie Arndt MD to add the results of lupus anticoagulant tests that were inadvertently omitted. ??There are no changes to the diagnosis. Electronically signed by: ?Hair SALCIDO, Steffanie Santizo Verified: ??09/02/2020 11:32 ??Hematopathologist Performed at: ??-[facility] Dept. of Pathology, [place], [place] ADDITIONAL STUDIES TEST ?(REFERENCE RANGE) ?RESULT Platelet count ?(145,000-357,000/uL ) ?492,000/cumm PT ?(9.4-12.5) ?13.0 sec PTT ? (25-37) ? 34 sec Fibrinogen ?(200-393) ?465 mg/dl Thrombin time ? (10-17) ? 14 sec APC resistance, ratio ? (>2.54) ? 3.10 Antithrombin ?(83-128%) ? >150% Protein C* ?(70-140%) ? >150% Protein S* ?(64-149%) ? 129% Lupus anticoagulant (DRVVT ratio) (<1.20) ? 0.86 Lupus anticoagulant (SCT ratio) ?? (<1.16) ? 1.13 Anticardiolipin antibodies ?(IgG </= 14.9 GPL) ?<9.4 GPL Anticardiolipin antibodies ?(IgM </= 12.5 MPL) ?<9.4 MPL Wkcw-5-lkxaqwclaszv-1 antibodies ??(IgG </= 20 units) ?<9.4 units Dflb-6-sdafgqyczzrc-1 antibodies ??(IgM </= 20 units) ?<9.4 units Homocysteine, random, plasma ?(</=15 umol/L) ?11 umol/L Factor V Leiden Mutation ?(normal) ?Not performed Prothrombin (37329 G->A) mutation (normal) ?Not performed * Functional assay for free Protein S and Protein C The screening test for activated protein C resistance is negative, thus there is no evidence for the presence of factor V Leiden. ??The DNA assay for factor V Leiden is therefore not indicated and was not performed as part of this study. Not performed at the request of the referring physician. DISCUSSION Thrombocytosis may be associated with such conditions as acute and chronic inflammation (such as may be seen with acute venous thromboembolism), infection, iron deficiency, occult neoplasm or a myeloproliferative neoplasm. Suggest repeat testing at a suitable interval with further evaluation if persistent. The fibrinogen level is elevated, a finding that may be associated with acute/chronic inflammatory conditions and/or with obesity. If elevated fibrinogen persists (>400 mg/dL), it may contribute to increased risk for arterial and venous thrombosis in . DISCUSSION some populations (Rachel ?? et al., J. Thromb Haemost. ??2003). Suggest repeat testing in at least 3-4 months and when the patient is clinically well. L evels of protein C and protein S may be overestimated in the presence of rivaroxaban or apixaban. If there is strong suspicion for a deficiency of one of these proteins, suggest repeat testing after discontinuation of the potentially interfering medication. Although the thrombophilia screening panel is negative, this individual may have additional as yet undefined genetic or environmental risk factors for venous thrombosis. Consultation with a thrombosis specialist or genetic counselor may be helpful for further characterizing specific thrombosis risk for this patient, if clinically appropriate. 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 No family history of VTE. [facility] 08/11/2020 12:2 0 PM EDT Wendy Espana MD PATHOLOGY/CYTOLOGY O RDERAANTELMO [facility] [place] [address] documented in this encounter Visit Diagnoses Diagnosis VTE (venous thromboembolism) Embolism and thrombosis of unspecified site Iron deficiency anemia, unspecified iron deficiency anemia type documented in this encounter Care Teams Otr Owner Operator Relationship Specialty Start Date End Date Roxy Mehta MD [address] [place] [address] PCP - General 02/23/10 documented as of this encounter
--- OUTSIDE RECORDS SUMMARY | 2023-10-19 11:10 | XMS_ITS | Encounter Summary ---
Author Organization [facility] [place] [address] Care Team Providers Care Garbage Truck Helper Name Role Phone Roxy Mehta MD Primary Care Provider [phone] Reason for Visit * Reason Comments Advice Only * Consultation (Urgent) - Closed Specialty Diagnoses / Procedures Referred By Contac t Referred To Contact Hematology and Oncology Diagnoses Multiple subsegmental pulmonary emboli without acute cor pulmonale Anemia, unspecified Essential (hemorrhagic) thrombocythemia Roxy Mehta MD [address] [place] [address] [facility] [address] [place] [address] Referral ID Status Reason Start Date Expiration Date V isits Requested Visits Authorized [id number] Closed Consult, Test & Treat Connection Center PCP Updated and/or Approved 05/11/2020 05/11/2021 1 1 Encounter Details Date Type Department Care Team (Latest Contact Info) Description 08/11/2020 11:00 AM EDT Office Visit [place]ematology [place] [address] Wendy Espana MD [facility] HEMATOLOGY/[place] [address] VTE (venous thromboembolism) (Primary Dx); Iron deficiency anemia, unspecified iron deficiency anemia [...] Sign Reading Time Taken Comments Blood Pressure 155/89 08/11/2020 10:52 AM EDT Pulse 85 08/11/2020 10:52 AM EDT Temperature 35.8 ??C (96.4 ??F) 08/11/2020 1 0:52 AM EDT Respiratory Rate 18 08/11/2020 10:5 2 AM EDT Oxygen Saturation 97% 08/11/2020 10: 52 AM EDT Inhaled Oxygen Concentration - - Weight 77.9 kg (171 lb 12.8 oz) 021 10:52 AM EDT Height 158 cm (5' 2.21) 08/11/2020 10: 52 AM EDT Body Mass Index 31.22 08/11/2020 10:52 AM EDT documented in this encounter Progress Notes * Wendy Espana MD - 08/11/2020 11:00 AM EDT Images from the original note were not included. [facility] [place] [address] THROMBOSIS CONSULTATION DATE OF VISIT 08/11/2020 Patient Patricia Liu 1940 REFERRING PHYSICIAN /Roxy Mehta MD PRIMARY CARE PHYSICIAN Roxy Mehta MD REASON FOR CONSULTATION Evaluation of recurrent pulmonary embolism, iron deficiency anemia & thrombocytosis HISTORY OF THE PRESENT ILLNESS Patricia Liu is a 79 y.o. woman with history of recurrent iron deficiency anemia, thrombocytosis,recurrent pulmonary embolism , who is seen in consultation at the request of Roxy Mehta MD for evaluation of recurrent PE and her anemia + thrombocytosis. The history is obtained from the patient, and I have reviewed extensive medical records provided by the referring physician and locatedin the electronic medical record to fill in gaps in the patient's recollection of events, treatments and outcomes. Patricia has had two pulmonary embolism in the past. Her first pulmonary embolism occurred several years ago around the time that she also had shingles. (about 6 years ago) She could not remember how she was diagnosed with acute pulmonary embolism and was not certain if she was treated with anticoagulation or not. Patricia has noticed some epigastric discomfort since [place] last year. Around she hasstarted to not feeling well, fatigue and also noted some shortness of breath. She was not able to walk long distance due to dyspnea. Subsequently she underwent further work up which revealed acute recurrent anemia secondary to iron deficiency anemia and also acute pulmonary embolism. She had a remote history of iron deficiency anemia and secondary thrombocytosis back in and she was seen by Samantha Pardo APRN and Dr. Jacobson for iron deficiency anemia & thrombocytosis. It was thought that her thrombocytosis was secondary to her iron deficiency anemia, because her thrombocytosis improved after Correction of iron deficiency anemia. Previously bone marrow biopsy on was performed which was unrevealing without any underlying bone marrow process. JAK2 mutationand PCR-BCR-ABL were negative. For the cause of iron deficiency anemia - it was not clear whether this was due to GI bleeding or not. Colonoscopy in 2015 showed no evidence of bleeding. Polyps were removed and internal hemorrhoid was noted. I did not see the report of EGD around the time, but she told me that her EGD was negative for source of bleeding. In September 2015 small capsule study was done at [facility] which revealed no sourceof chronic blood losses. However, incidental small gastric erosion and few scattered lymphangiectasia in the proximal small bowel. Since then she has not required any intravenous iron supplement until recent event. She received her last intravenous iron infusion in May 2020. Lab in Apr 2020 showed microcytic anemia with Hg of 8 and her platelet was 600-750K around that time. She believed that she also received PRBC. She has not had a repeat GI work up for this recent iron deficiency anemia. She denies any rectal bleeding,melena. Her stool is loose, but not watery. She was last seen By GI several years ago, and her GI thought that she might have a gastroparesis, but this has never been confirmed. She denies any major GI surgery. She stated that she did not feel like eating, but tries to eat. No weight loss. She denies any history of celiac disease. She has chronic knee pain due to OA. She recently received corticosteroid injection about 2 1/2 weeks to the knee, but it did not alleviate her symptom so far. Her overall mobility is limited by her knee pain. She does not routinely take NSAIDs. THROMBOSIS RISK FACTORS Risk Factor Comment Obesity (BMI >30 kg/m2) V/A x Body mass index is 31.22 kg/m??. Diabetes V/A Current smoker V/A Estrogen or estrogen/progestin V/A V/A Inflammatory disease V/A Recent surgery (<3 months) V Recent hospitalization (<3 mo) V Recent travel (<3 mo) V Period of immobility V Documented thrombophilia V Accident/Trauma V/A Cancer or treatment for cancer V/A Blood transfusion V/A Central venous catheter V Family history (1st degree) V/A Varicose veins/venous insuff. V Hypertension A Hyperlipidemia A Vascular disease A V: Risk factor for venous thrombosis; A: Risk factor for arterial thrombosis PAST MEDICAL HISTORY 1. DM 2. Hypertension 3. Iron deficiency anemia and reactive thrombocytosis 4. Pulmonary embolism without DVT 5. Hypothyroidism 6. GERD 7. Knee pain due to OA OPERATIVE PROCEDURES Past Surgical History: Procedure Laterality Date ??? PRG UNLISTED DIAGNOSTIC GASTROENTEROLOGY PROCEDURE N/A 09/24/2015 VIDEO CAPSULE ENDOSCOPY performed by Darlyn Escalante MD at [facility] ENDOSCOPY ??? PRO BONE MARROW ASPIRATION W/BX THROUGH SAME INCISION/SITE Left 03/18/2015 ([facility]) BONE MARROW ASP PERFORMED W/BX THRU BX INCISION performed by Chris Jacobson MD at [facility] OSC ??? PRO BONE MARROW BX, NEEDLE/TROCAR Left 03/18/2015 ([facility]) BONE MARROW,BIOPSY performed by Chris Jacobson MD at [facility] OSC TKA Left MEDICATIONS Current Outpatient Medications on File Prior to Visit Medication Sig Dispense Refill ??? fluticasone propionate (Flonase Allergy Relief) 50 mcg/actuation [place], Suspension Daily ??? levothyroxine (Synthroid) 50 mcg Tablet Daily ??? cholecalciferol, Vitamin D3, 50 mcg (2,000 unit) Capsule 2,000 Units daily. ??? Symbicort 160-4.5 mcg/actuation HFA Aerosol Inhaler INHALE TWO PUFFS BY MOUTH TWICE A DAY ??? albuteroL 90 mcg/actuation HFA Aerosol Inhaler INHALE TWO PUFFS BY MOUTH FOUR TIMES A DAY NEEDED FOR SHORTNESS OF BREATH OR WHEEZING ??? estradioL (VAGIFEM) [address] vaginally. 3 times weekly ??? inhalational spacing device Spacer .MEDSUPPLY ??? losartan potassium (LOSARTAN ORAL) Take 50 mg by mouth daily. ??? apixaban (ELIQUIS) 5 mg Tablet Take [...] (PRILOSEC) 40 mg Capsule, Delayed Release(E.C.) Take 20 mg by mouth 2 times daily. ??? lisinopril (PRINIVIL;ZESTRIL) 10 mg Tablet [...] facility-administered medications on file prior to visit. ADVERSE DRUG REACTIONS Allergies as of 08/11/2020 ??? (No Known Allergies) FAMILY HISTORY No family history of VTE SOCIAL HISTORY Former smoker 15 PY, quit 20 years ago REVIEW OF SYSTEMS Fevers/chills/sweats No Recent infections No Unexplained weight loss No Headache/lightheadedness/syncope No Sinus pain/pressure No Oral sores/lesions/bleeding No Sore throat/dysphagia No Nosebleeds No Cough/SOB/chest pain/heart racing SOB resolved Nausea/vomiting/dyspepsia No Abdominal pain Epigastric discomfort Diarrhea/constipation No Urinary pain, burning, incontinence No Hematuria No Vaginal discharge/bleeding No Skin rashes/ulcers No Back/joint pain/swelling Right knee pain Leg swelling/pain/redness No Bruising/petechiae/bleeding/melena No Sensory/motor No Polydipsia/polyuria/heat/cold intol No Lumps/bumps/swollen glands No Other Negative except as above PHYSICAL EXAMINATION BP 155/89 (Patient Position: Sitting) Pulse 85 Temp 35.8 ??C (96.4 ??F) (Temporal) Resp 18 Ht 158 cm (5' 2.21) Wt 77.9 kg (171 lb 12.8 oz) SpO2 97% BMI 31.22 kg/m?? GENERAL: Well-appearing, articulate white female. HEENT: Wearing mask NECK: Supple; BREASTS: Exam deferred. CHEST/LUNGS: Clear to auscultation. No rales, rhonchi, wheezes. HEART: Regular rate and rhythm; no murmur, rub, gallop GASTROINTESTINAL: Abdomen soft, non-tender, GENITOURINARY: Exam deferred. EXTREMITIES: No edema. No erythema, tenderness or palpable cords. MUSCULOSKELETAL: Spine nontender. No acutely inflamed joints. SKIN: No ecchymoses, petechiae, ulcers or rashes. LYMPH: Not examinded NEUROLOGIC: Alert, oriented. Speech clear, coherent. No focal deficits noted. PSYCHIATRIC: Appropriate affect, no apparent distress. LABORATORY STUDIES Lab Results Component Value Date WBC 9.5 08/11/2020 RBC 5.13 08/11/2020 HGB 13.9 08/11/2020 HCT 44.2 08/11/2020 MCV 86.2 08/11/2020 MCH 27.1 08/11/2020 MCHC 31.4 (L) 08/11/2020 PLATELET 492 (H) 08/11/2020 RDWCV 18.6 (H) 08/11/2020 Ref. Range 08/11/2020 12:37 Iron Latest Ref Range: 30 - 150 mcg/dL 81 TIBC Latest Ref Range: 250 - 450 mcg/dL 383 Iron Saturation Latest Ref Range: 20 - 50 % 21 Ferritin Latest Ref Range: 30 - 400 ng/mL 32 Thrombophilia testing today pending RADIOGRAPHIC STUDIES O[place]ide CT scan CT chest 04/28/20 Multiple new segmental and subsegmental PE in all lobes Moderate sized of hiatal hernia CT abdomen/pelvis 04/28/20 No acute abnormality in the abdomen/pelvis IMPRESSION Patricia Liu is a 79 y.o. woman with history of recurrent pulmonary embolism, who was referred [facility] for evaluation of pulmonary embolism, duration of anticoagulation. She also has history of recurrent iron deficiency anemia and thrombocytosis. Her initial PE was diagnosed around her diagnosis of shingles about 6 years ago. I don't have her medical record from that time. We will try to request that from her PCP. Her second pulmonary embolism appeared to be unprovoked, but occurred concurrent to anemia secondary to iron deficiency. It is hard to say whether the anemia preceded the PE or vice versa. She had a similar episode of iron deficiency back in and underwent extensive GI work up including colo, EGD and capsule study. Capsule study showed a single small and superficial non-bleeding localized ??erosion in the gastric antrum. Previously she responded to IV iron infusion and has not had a recurrent event until recent in Apr 2020. Her lab today showed resolution of anemia after repeat IV iron infusion and her thrombocytosis has improved from 750-> 492K. Although her thrombocytosis is still persists, but significant improved. Previously she also underwent a work up to rule out bone marrow process. Her BMBx was normal and did not suggest any underlying primary bone marrow process. Her previous lab was negative for JAK2 mutation (myleoproliferative disorder) and PCR-BCR ABL (CML). I agreed that her thrombocytosis is more likely reactive secondary to iron deficiency amemia and I don't recommend a further work up at this moment. Although her previous GI work up was negative several years ago, I think it is worth it to re consider GI evaluation, jane that this time she will benefit to stay on long-term anticoagulation. Her previous capsule study did show an area of non bleeding gastric erosion. With her known hx of hiatal hernia, david erosions which are erosions/ulcers that can occur in the sac of hiatal hernia can be possible. She also does have some epigastric discomfort for a few months. I suspected that her event was more likely due to GI bleeding rather than decreased oral iron absorption because she was doing fine for several years between the two events. We discussed that given unprovoked nature of her pulmonary embolism, thrombophilia testing is reasonable. However, the result won't likely blade changer. She is interested to proceed with the testing which was done today. We discussed that her estimate risk for VTE recurrence is as high as 10-15%/year without anticoagulation and anticoagulation will reduce the risk for VTE recurrence down to 1%/year and the life-threatening bleeding risk on apixaban such as ICH is <1%/year. In her case, I think it is important to us to be sure that there is no ongoing source of bleeding somewhere that would potential put her at risk of beleding if she continues to stay on long-term anticoagulation. PLAN/RECOMMENDATIONS 1. Thrombophilia testing 2. Continue apixaban 5 mg PO twice daily - favor long-term anticoagulation - consider lowering apixaban dose to 2.5 mg PO BID after initial 6 months of treatment is completedas long as there is no significant bleeding and no high risk thrombophilia 3. Recommend GI re evaluation to rule out source of bleeding, jane that she will need to stay on long-term anticoagulation 4. Can consider right TKA in the future once she is further out from her PE and once the cause of anemia is identified - preferable 6 months of her event Patricia Liu had the opportunity to ask questions and indicated that all her questions were answered to her satisfaction. She will follow up with me (tele visit) in approximately three weeks to discuss the results of the thrombosis testing, and I will finalize my recommendations at that time. Wendy Espana MD documented in this encounter Plan of Treatment Not on file documented as of this encounter Results * Ferritin (08/11/2020 12:37 PM EDT) [facility] Ferritin 32 30 - 400 ng/mL [facility] Comment: Pediatric reference ranges not verified at [facility], interpret with caution. Reference ranges for females greater than 50 years of age approach values for men, i.e., 30-400 ng/mL. Blood specimen (specimen) 08/11/2020 12:37 PM EDT 08/11/2020 1:14 PM EDT Narrative Resulting Agency Comment Spec In Lab Wendy Espana MD CHEMISTRY ORDERABLES Performing Organization Address City/[facility]/ZIP Co de Phone Number [facility] [place] [address] * Iron and TIBC (08/11/2020 12:37 PM EDT) Iron 81 30 - 150 mcg/dL [facility] TIBC 383 250 - 450 mcg/dL [facility] Iron Saturation 21 20 - 50 % [facility] Blood specimen (specimen) 08/11/2020 12:37 PM EDT 08/11/2020 1:14 PM EDT Narrative Resulting Agency Comment Spec In Lab Wendy Espana MD CHEMISTRY ORDERABLES Performing Organization Address [facility] Co de Phone Number [facility] [place] [address] documented in this encounter Visit Diagnoses Diagnosis VTE (venous thromboembolism)- Primary Embolism and thrombosis of unspecified site Iron deficiency anemia, unspecified iron deficiency anemia type Reactive thrombocytosis documented in this encounter Care Teams Garbage Truck Helper Relationship Specialty Start Date End Date Roxy Mehta MD [address] [place] [address] PCP - General 02/23/10 documented as of this encounter
--- OUTSIDE RECORDS SUMMARY | 2023-10-19 11:10 | XMS_ITS | Encounter Summary ---
[place] [address] Care Team Providers Care Nurse Executive Name Role Phone Roxy Mehta MD Primary Care Provider [phone] Encounter Details Date Type Department Care Team (Late st Contact Info) Description 05/11/2020 Telephone [place] [id number] Lacey Cole Social History Tobacco Use Types Packs/Day Years [...] on filedocumented in this encounter Care Teams Nurse Executive Relationship Specialty Start Date End Date Roxy Mehta MD [address] [place], [place] [id number] PCP - General 02/23/10 documented as of this encounter
--- OUTSIDE RECORDS SUMMARY | 2023-10-19 11:10 | XMS_ITS | Encounter Summary ---
Author Organization [facility] [place] [address] Care Team Providers Care Sql Data Analyst Name Role Phone Roxy Mehta MD Primary Care Provider [phone] Encounter Details Date Type Department Care Team (Late st Contact Info) Description 09/07/2016 Orders Only Hematology [place] [address] Samantha Pardo, [facility] HEMATOLOGY/[place] [address] Iron deficiency anemia due to chronic blood loss Social History Tobacco Use Types Packs/Day Years Used Date Smoking Tobacco: Former Sex and Gender Information Value Date Recorded Sex Assigned at Female 07/30/2020 12:05 PM EDT Gender Identity Female 07/30/2020 12:05 PM EDT Sexual Orientation Straight 07/30/2020 12 :05 PM EDT documented as of this encounter Plan of Treatment Not on file documented as of this encounter Results * (ABNORMAL) TSH (09/12/2016 1:47 PM EDT) TSH 4.27(H) 0.27 - 4.20 mlU/ML [facility] Blood specimen (specimen) 09/12/2016 1:47 PM EDT 09/12/2016 1:54 PM EDT Narrative Resulting Agency Comment Spec In Lab Samantha Pardo SERVICE OBSERVER CHIEF CHEMISTRY ORDERABLES Performing Organization Address City/[facility]/ZIP Co de Phone Number [facility] [place] [address] * Lactate Dehydrogenase (09/12/2016 1:47 PM EDT) LDH 163 110 - 220 unit/L [facility] Blood specimen (specimen) 09/12/2016 1:47 PM EDT 09/12/2016 1:54 PM EDT Narrative Resulting Agency Comment Spec In Lab Samantha Pardo SERVICE OBSERVER CHIEF CHEMISTRY ORDERABLES Performing Organization Address [facility] Co de Phone Number [facility] [place] [address] * (ABNORMAL) Reticulocyte Count (09/12/2016 1:47 PM EDT) [facility] Retic Ct % 4.4(H) 0.7 - 2.5 % [facility] Retic Ct Abs 0.150(H) 0.020 - 0.110 x10(6)/mc L [facility] Immature Retic% 27.6(H) 0.5 - 13.8 % [facility] Reticulated Hgb 22.5(L) 29.8 - 39.4 pg [facility] Blood specimen (specimen) 09/12/2016 1:47 PM EDT 09/12/2016 1:54 PM EDT Narrative Resulting Agency Comment Spec In Lab Samantha Pardo SERVICE OBSERVER CHIEF HEMATOLOGY ORDERABLE S Performing Organization Address [facility]/ZIP Co de Phone Number [facility] [place] [address] * (ABNORMAL) Iron and TIBC (09/12/2016 1:47 PM EDT) Pathologist [facility] Iron 20(L) 30 - 150 mcg/dL [facility] TIBC 456(H) 250 - 450 mcg/dL [facility] Iron Saturation 4(L) 20 - 50 % [facility] Blood specimen (specimen) 09/12/2016 1:47 PM EDT 09/12/2016 1:54 PM EDT Narrative Resulting Agency Comment Spec In Lab Samantha Pardo SERVICE OBSERVER CHIEF CHEMISTRY ORDERABLES Performing Organization Address City/[facility]/ZIP Co de Phone Number [facility] [place] [address] * (ABNORMAL) Ferritin (09/12/2016 1:47 PM EDT) Ferritin 25(L) 30 - 400 ng/mL [facility] Comment: Pediatric reference ranges not verified at [facility], interpret with caution. Reference ranges for females greater than 50 years of age approach values for men, i.e., 30-400 ng/mL. Blood specimen (specimen) 09/12/2016 1:47 PM EDT 09/12/2016 1:54 PM EDT Narrative Resulting Agency Comment Spec In Lab Samantha Pardo SERVICE OBSERVER CHIEF CHEMISTRY ORDERABLES Performing Organization Address [facility] Co de Phone Number [facility] [place] [address] * (ABNORMAL) Comprehensive metabolic panel (non-fasting) (09/12/2016 1:47 PM EDT) [facility] Signature Glucose Lvl 90 65 - 199 mg/dL [facility] Comment:Diabetes: >=200 mg/d L plus symptoms BUN 22(H) 8 - 18 mg/dL [facility] Creatinine 0.89 0.70 - 1.20 mg/dL [facility] Comment: Please note that the pediatric reference intervals supplied above were not validated at [facility]. Results from pediatric patients should be interpreted in conjunction to the patient's age, height and muscle mass. Sodium 139 135 - 145 mmol/L [facility] Potassium 4.2 3.5 - 5.0 mmol/L [facility] Comment: Please note: ??Patients with WBC >100,000 may have falsely elevated Potassium levels. ??For accurate Potassium quantification in these patients send serum separator tube (gold top) for subsequent determinations. ??Contact the Clinical Chemistry Laboratory if there are any questions. Chloride 100 98 - 107 mmol/L [facility] CO2 20(L) 22 - 31 mmol/L [facility] Anion Gap 19(H) 5 - 15 mmol/L [facility] Calcium 9.5 8.5 - 10.5 mg/dL [facility] Total Protein 7.4 6.1 - 8.0 gm/dL [facility] Albumin 4.4 3.2 - 5.2 gm/dL [facility] AST 19 0 - 30 unit/L [facility] ALT 13 0 - 30 unit/L [facility] Alk Phos 131(H) 40 - 104 unit/L [facility] Total Bilirubin <0.2(L) 0.2 - 1.3 mg/dL [facility] Bili, Direct <0.1 0.0 - 0.3 mg/dL [facility] Estimated GFR >60 >=60 [facility] Comment: This estimated GFR (eGFR) value [...] the following links into your internet browser. [email or web address] Blood specimen (specimen) 09/12/2016 1:47 PM EDT 09/12/2016 1:54 PM EDT Narrative Resulting Agency Comment Spec In Lab Samantha Pardo SERVICE OBSERVER CHIEF CHEMISTRY ORDERABLES [facility] [place] [phone] documented in this encounter Visit Diagnoses Diagnosis Iron deficiency anemia due to chronic blood loss Iron deficiency anemia secondary to blood loss (chronic) documented in this encounter Care Teams Sql Data Analyst Relationship Specialty Start Date End Date Roxy Mehta MD [address] [place] [address] PCP - General 02/23/10 documented as of this encounter
--- OUTSIDE RECORDS SUMMARY | 2023-10-19 11:10 | XMS_ITS | Encounter Summary ---
Author Organization [facility] [place] [address] Care Team Providers Care Central Sterilization Technician Name Role Phone Roxy Mehta MD Primary Care Provider [phone] Encounter Details Date Type Department Care Team (Late st Contact Info) Description 03/11/2021 1:30 PM EST Office Visit Hematology/Oncology at [address] [phone] Chris Jacobson MD [facility] HEMATOLOGY/[place] [address] Flor Coleman COUNCILOR [address] [place] [address] [place] [address] Iron deficiency anemia, unspecified iron [...] Sign Reading Time Taken Comments Blood Pressure 159/75 03/11/2021 1:26 PM EST Pulse 99 03/11/2021 1:26 PM EST Temperature 35.3 ??C (95.5 ??F) 03/11/2021 1:26 PM ES T Respiratory Rate 20 03/11/2021 1:26 PM EST Oxygen Saturation 98% 03/11/2021 1:26 PM EST Inhaled Oxygen Concentration - - Weight 80.5 kg (177 lb 6.4 oz) 03/11/2021 1:26 P M EST Height 159 cm (5' 2.6) 03/11/2021 1:26 PM EST Body Mass Index 31.83 03/11/2021 1:26 PM EST documented in this encounter Progress Notes * Flor Coleman, COUNCILOR - 03/11/2021 1:30 PM EST Subjective: Patient ID: Patricia Liu is a 80 y.o. female. Patient Active Problem List Diagnosis Code ??? Thrombocytosis D75.839 ??? Iron deficiency anemia D50.9 ??? Recurrent pulmonary embolism I26.99 HPI The patient is a 79-year-old female who I am seeing in the [facility]. She has a history of chronic elevation of her platelet count. I saw her once in 2014 and again in 2016. She had a bone marrow aspirate and biopsy in 2014 that did not show any evidence of a myeloproliferative neoplasm. She has been intermittently iron deficient and we felt her thrombocytosis was most likely reactive. ?? She saw Dr. Carballo earlier this year because of another pulmonary embolism. She is currently on Eliquis. Likely to be on it for life. ?? She did get intravenous iron in 2016 and her platelet count improved. She got another course of intravenous iron from her primary care doctor in June of this year. Her platelet count did improve after that as well. Her most recent ferritin was still borderline. She is taking oral iron. She takes ferrous sulfate daily. ?? She did have a work-up of her GI tract including a capsule study in 2015 which did not reveal any sinister source of GI blood loss. ?? She is planning a knee replacement surgery coming up in about 4 5 days. She did have labs done for her primary care doctor today. INTERVAL HPI 03/11/21 Vania Liu is a 80 yo female diagnosed with thrombocytosis in 2014. At that time she had a bone marrow biopsy that was negative for MPN. She has had iron deficiency of which she has had GI workup and no source of bleeding found. Vania's thrombocytosis was felt to be DELMI reactive, and has responded to iron infusions. She most recently had full set of iron infusions in June, and one dose in December before her knee replacement surgery. These have been scheduled by her PCP. Vania returns [facility] today for routine follow-up. Today she says she is doing well. She has been feeling a little more fatigued in recent weeks, and thinks she needs some iron. She also loses her appetite when her iron is low. She has been taking itorally QOD. She says her PCP has already scheduled her at [facility] next week for Iron. In the future she says she would prefer to have infusion in the clinic here, so we will schedule her for that in 3 months. Vania does not notice any signs of GI bleeding or any other unusual bleeding. She has been staying active. She goes to twice weekly for her knee replacement rehab and has been walking about a mileevery other day. She has other salguero been well. No breathing issues. No fevers, chills or night sweats. She has not noticed any unusual lumps or bumps. No Known Allergies Current Medications ??? omeprazole 20 mg Tablet, Delayed Release (E.C.) ??? fluticasone propionate (Flonase Allergy Relief) 50 mcg/actuation Powell, Suspension ??? levothyroxine (Synthroid) 50 mcg Tablet ??? cholecalciferol, Vitamin D3, 50 mcg (2,000 unit) Capsule ??? estradioL (VAGIFEM) 10 mcg Tablet ??? inhalational spacing device Spacer ??? losartan potassium (LOSARTAN ORAL) ??? apixaban (ELIQUIS) 5 mg Tablet ??? ferrous sulfate 325 mg (65 mg iron) Tablet ??? albuteroL 90 mcg/actuation HFA Aerosol Inhaler Review of Systems Constitutional: Positive for appetite change and fatigue. Negative for fever. Decreased appetite , increased fatigue HENT: Negative. Respiratory: Negative for cough and shortness of breath. Cardiovascular: Negative. Gastrointestinal: Negative. Genitourinary: Negative. Musculoskeletal: Negative. Neurological: Negative. Hematological: Negative for adenopathy. Does not bruise/bleed easily. Psychiatric/Behavioral: Negative. Objective: Physical Exam Vitals reviewed. Exam conducted with a corporate real estate specialist present. Constitutional: General: She is not in acute distress. Appearance: Normal appearance. She is not ill-appearing. HENT: Head: Normocephalic. Cardiovascular: Rate and Rhythm: Normal rate and regular rhythm. Heart sounds: Normal heart sounds. Pulmonary: Breath sounds: Normal breath sounds. No wheezing or rales. Abdominal: General: Bowel sounds are normal. Palpations: Abdomen is soft. Tenderness: There is abdominal tenderness. Comments: RUQ tenderness on palpation Musculoskeletal: Right lower leg: No edema. Left lower leg: No edema. Skin: General: Skin is warm and dry. Neurological: Mental Status: She is alert and oriented to person, place, and time. Psychiatric: Mood and Affect: Mood normal. Thought Content: Thought content normal. BP 159/75 (Patient Position: Sitting) Pulse 99 Temp 35.3 ??C (95.5 ??F) (Temporal) Resp 20 Ht 159 cm (5' 2.6) Wt 80.5 kg (177 lb 6.4 oz) SpO2 98% BMI 31.83 kg/m?? LABS 03/02/21 WBC 7.57; ANC 4.62; H/H 12.4/40.4; PLT 551; BUN 12; CREAT 0.9; CA++8.2; IRON 33; FERRITIN 44. Assessment and Plan: Assessment: Vania Liu is a 80 yo female diagnosed with thrombocytosis in 2014. At that time she had a bone marrow biopsy that was negative for MPN. She has had iron deficiency of which she has had GI workup and no source of bleeding found. Vania's thrombocytosis was felt to be DELMI reactive, and has responded to iron infusions. She most recently had full set of iron infusions in June, and one dose in December before her knee replacement surgery. These have been scheduled by her PCP. [facility]. Persistent reactive thrombocytosis. CBC, Iron studies and CMP reviewed with patient today. Plan: RTC 3 months. Will plan for labs, Venofer infusions X3 weeks upon return, pending lab results. Continue oral Iron QOD. documented in this encounter Plan of Treatment Not on file documented as of this encounter Visit Diagnoses Diagnosis Iron deficiency anemia, unspecified iron deficiency anemia type Reactive thrombocytosis documented in this encounter Care Teams Central Sterilization Technician Relationship Specialty Start Date End Date Roxy Mehta MD [address] [place] [address] PCP - General 02/23/10 documented as of this encounter
--- OUTSIDE RECORDS SUMMARY | 2023-10-19 11:10 | XMS_ITS | Encounter Summary ---
Author Organization [facility] [place] [address] Care Team Providers Care Auto Wrecker Name Role Phone Roxy Mehta MD Primary Care Provider Encounter Details Date Type Department Care Team (Late st Contact Info) Description 04/28/2020 Ancillary Procedure [place] [phone] Roxy Mehta MD [address] [place] [address] Social History Tobacco Use Types [...] STORAGE ONLY CT CHEST ABDOMEN PELVIS Routine 04/28/2020 12:00 AM EST documented in this encounter Results * Film Library- Storage Only CT Chest Abdomen Pelvis (04/28/2020 12:00 AM EST) Narrative [facility] - 05/07/2020 4:49 PM EST This exam is auto-finalizing. It's purpose is for storage only. Roxy Mehta MD [facility] FILM LIBRARY ORD ERABLES [facility] [place], [place] documented in this encounter Visit Diagnoses Not on filedocumented in this encounter Care Teams Auto Wrecker Relationship Specialty Start Date End Date Roxy Mehta MD [address] [place] [address] [address] [place] [address] PCP - General 02/23/10 documented as of this encounter
--- OUTSIDE RECORDS SUMMARY | 2023-10-19 11:10 | XMS_ITS | Encounter Summary ---
Author Organization [facility] [place] [address] Care Team Providers Care Wash Barrel Leader Name Role Phone Roxy Mehta MD Primary Care Provider [phone] Reason for Visit * Reason Comments Follow-up Encounter Details Date Type Department Care Team (Late st Contact Info) Description 10/03/2016 10:45 AM EDT Office Visit Hematology [place] [address] Chris Jacobson MD [facility] HEMATOLOGY/[place] [address] Samantha Pardo, CHELI [facility] HEMATOLOGY/[place] [address] Thrombocytosis; Iron deficiency anemia due to chronic blood [...] Sign Reading Time Taken Comments Blood Pressure 131/71 10/03/2016 10:44 AM EDT Pulse 104 10/03/2016 10:44 AM EDT Temperature 36.4 ??C (97.5 ??F) 10/03/2016 10:44 AM E DT Respiratory Rate 18 10/03/2016 10:44 AM EDT Oxygen Saturation 98% 10/03/2016 10:44 AM EDT Inhaled Oxygen Concentration - - Weight 73.8 kg (162 lb 9.6 oz) 10/03/2016 10:44 AM EDT Height 160 cm (5' 2.99) 10/03/2016 10:44 AM EDT Body Mass Index 28.81 10/03/2016 10:44 AM EDT documented in this encounter Progress Notes * Samantha Pardo, DAIRY QUALITY ASSURANCE OFFICER - 10/03/2016 10:45 AM EDT Subjective: Patient ID: Patircia Liu is a 75 y.o. female here for f/u of DELMI Patient Active Problem List Diagnosis ??? Iron deficiency anemia Oral iron since 2014. Required Venofer 2016. Capsule study revealed healed small gastric erosion. Marrow 2014 normal cytogenetics ??? Thrombocytosis 2014 marrow negative for MPN, normal cytogenetics. Negative for BCR/ABL. JAK2 negative HPI Patricia is doing OK - she has now completed 3 additional doses of IV venofer - she tolerated well. She only yesterday begain starting to feel a bit better - but still fatigued. She was hoping she wouldbe feeling better at this point. Last IV venofer 3 days ago. She is requesting any further follow up be done closer to home if possible. She denies any active bleeding - no BRBPB and no black dark tarry stools. Review of Systems Constitutional: Positive for fatigue. May be starting to improve HENT: Negative. Eyes: Negative. Respiratory: Negative. Negative for cough and shortness of breath. Cardiovascular: Negative. Negative for chest pain, palpitations and leg swelling. Gastrointestinal: Negative. Negative for constipation, diarrhea, nausea and vomiting. Genitourinary: Negative. Musculoskeletal: Negative. Skin: Negative. Neurological: Negative. Negative for weakness and numbness. Psychiatric/Behavioral: Negative. Objective: Physical Exam Not repeated today Assessment and Plan: 75 y.o. woman with iron deficiency anemia, reactive thrombocytosis, and mild lymphocytic leukocytosis. She was previously evaluated by hematology where JAK2 mutation was negative, bone marrow biopsy was negative for any MPN, and recommendation for capsule endoscopy revealed a small gastric erosion.We suspect that her anemia is multifactorial and largely due to iron deficiency with some prior chronic blood loss. She has had a nice response to IV iron with her retic, ferritin and iron studies all returning to normal. At this time we would recommend continued follow up monitoring for ongoing losses. She does remian on anticoagulation for her bilat PE's. She does prefer local follow up as it is quite inconveniene tto travel to [place]. She has requested PCP follow up in the immediate future and if needed - perhaps hematology follow up in the future at [facility]. Would recommend Q3 months CBC and iron studies. If requires ongoing IV iron we could help to get her set up in [facility] for this. Regarding her thrombocytosis -this is better after iron infusions, (back to [facility]) however stillelevated. Previous marrow in 2014 did NOT show a MPN, had normal cytogenetics. JAK2 and BCR/ABL allnegative. 50 gene panel was not able to be completed. As long as platelet count remains less than 1million - no need for cytoreduction at this time. This still does leave the question regarding length of anticoagulation with thrombocytosis and recent GIB. She does have a consult coming up with Dr. Christie to further discuss - she will remain on AC at least until that time. We will not schedule follow up at this time, however we do remain available should she need furtherhematology consultation/treatment. 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
--- OUTSIDE RECORDS SUMMARY | 2023-10-19 11:10 | XMS_ITS | Encounter Summary ---
Author Organization [facility] [place] [address] Care Team Providers Care Auto Body Shop Manager Name Role Phone Roxy Mehta MD Primary Care Provider [phone] Encounter Details Date Type Department Care Team (Late st Contact Info) Description 07/26/2016 Ancillary Procedure [place] [phone] Roxy Mehta MD [address] [place] [address] Social History Tobacco Use Types [...] Comments FILM LIBRARY STORAGE ONLY CT CHEST Routine 07/26/2016 12:00 AM EDT documented in this encounter Results * Film Library- Storage Only CT Chest (07/26/2016 12:00 AM EDT) Narrative [facility] - 05/07/2020 4:40 PM EST This exam is auto-finalizing. It's purpose is for storage only. Roxy Mehta MD [facility] FILM LIBRARY ORD ERABLES [place], [place] documented in this encounter Visit Diagnoses Not on filedocumented in this encounter Care Teams Auto Body Shop Manager Relationship Specialty Start Date End Date Roxy Mehta MD [address] [place] [address] PCP - General 02/23/10 documented as of this encounter
--- OUTSIDE RECORDS SUMMARY | 2023-10-19 11:10 | XMS_ITS | Encounter Summary ---
Author Organization [facility] [place] [address] Care Team Providers Care Professor Of Criminal Justice Name Role Phone Roxy Mehta MD Primary Care Provider [phone] Encounter Details Date Type Department Care Team (Latest Contact Info) Description 09/02/2020 11:00 AM EDT TH Visit (TeleHealth) Hematology [place] [address] Wendy Espana MD [facility] HEMATOLOGY/[place] [address] Recurrent pulmonary embolism; Iron deficiency anemia, unspecified iron deficiency anemia [...] as of this encounter Progress Notes * Wendy Espana MD - 09/02/2020 11:00 AM EDT Images from the original note were not included. [facility] [place], [place] [address] THROMBOSIS CONSULTATION DATE OF VISIT 09/02/2020 Patient Patricia Liu 1940 REFERRING PHYSICIAN /Roxy Mehta MD PRIMARY CARE PHYSICIAN Roxy Mehta MD REASON FOR CONSULTATION Evaluation of recurrent pulmonary embolism, iron deficiency anemia & thrombocytosis Due to COVID-19 pandemic this office visit was converted to tele visit. Patient verbally consents to this tele visit and understands that the visit may be billed, similar to a clinic office visit. HISTORY OF THE PRESENT ILLNESS Patricia Liu is a 79 y.o. woman with history of recurrent iron deficiency anemia, thrombocytosis,recurrent pulmonary embolism , who is seen in consultation at the request of Roxy Mehta MDforevaluation of recurrent PE and her anemia + thrombocytosis. The history is obtained from the patient, and I have reviewed extensive medical records provided by the referring physician and located in the electronic medical record to fill in gaps in the patient's recollection of events, treatmentsand outcomes. Patricia has had two pulmonary embolism in the past. Her first pulmonary embolism occurred several years ago around the time that she also had shingles. (about 6 years ago) She could not remember how she was diagnosed with acute pulmonary embolism and was not certain if she was treated with anticoagulation or not. Patricia has noticed some epigastric discomfort since Thanksgiving last year. Around [place] she hasstarted to not feeling well, fatigue [...] to GI bleeding or not. Colonoscopy in 2016 showed no evidence of bleeding. Polyps were removed and internal hemorrhoid was noted. I did not see the report of EGD around the time, but she told me that her EGD was negative for source of bleeding. In September 2015 small capsule study was done at [facility] which revealed no sourceof chronic blood losses. [...] pain. She does not routinely take NSAIDs. INTERIM HISTORY She is scheduled for tele follow-up today to discuss thrombophilia result. She denies any chest pain, shortness of breath. No recent melena or BRBPR or bleeding anywhere. She feels good overall. She continues to have knee pain and is hoping to undergo a TKA in the near future if this is safe to do from my standpoint. She is scheduled to see her PCP the end of this month. THROMBOSIS RISK FACTORS Risk Factor Comment Obesity (BMI >30 kg/m2) V/A x Diabetes V/A Current smoker V/A Estrogen or [...] GERD 7. Knee pain due to OA 8. Moderate size of hiatal hernia OPERATIVE PROCEDURES Past Surgical History: Procedure Laterality Date ??? PRG UNLISTED DIAGNOSTIC GASTROENTEROLOGY PROCEDURE N/A 09/24/2015 VIDEO CAPSULE ENDOSCOPY performed by Darlyn Escalante MD at [facility] ENDOSCOPY ??? PRO BONE MARROW ASPIRATION W/BX THROUGH SAME INCISION/SITE Left 03/18/2015 ([facility]) BONE MARROW ASP PERFORMED W/BX THRU BX INCISION performed by Chris Jacobson MD at [facility] OSC ??? PRO BONE MARROW BX, NEEDLE/TROCAR Left 03/18/2015 ([facility]) BONE MARROW,BIOPSY performed by Chris Jacobson MD at [facility] OSC TKA Left MEDICATIONS Current Outpatient Medications on File Prior to Visit Medication Sig Dispense Refill ??? fluticasone propionate (Flonase Allergy Relief) 50 mcg/actuation [place], Suspension Daily ??? levothyroxine (Synthroid) 50 mcg [...] mg by mouth daily (with breakfast). ??? Calcium Citrate-Vitamin D3 200 mg calcium -250 unit Tablet Take by mouth. ??? omeprazole (PRILOSEC) 40 mg Capsule, Delayed Release(E.C.) Take 20 mg by mouth 2 times daily. ??? CIS Free Text Med - Nasacort 1 Puff(s), Nasal, Twice daily PRN (Patient not taking: No sig reported) ??? CIS Free Text Med - Albuterol (Refill) (Patient not taking: No sig reported) ??? CIS Free Text Med - Vagifem 25MCG = 1 Tablet(s), Vag, Every other day (Patient not taking: No sig reported) No current facility-administered medications on file prior to visit. ADVERSE DRUG REACTIONS Allergies as of 09/02/2020 ??? (No Known Allergies) FAMILY HISTORY No family history of VTE SOCIAL HISTORY Former smoker 15 PY, quit 20 years ago REVIEW OF SYSTEMS Fevers/chills/sweats No Recent infections No Unexplained weight loss No Headache/lightheadedness/syncope No Sinus pain/pressure No Oral sores/lesions/bleeding No Sore throat/dysphagia No Nosebleeds No Cough/SOB/chest pain/heart racing SOB resolved Nausea/vomiting/dyspepsia No Abdominal pain No Diarrhea/constipation No Urinary pain, burning, incontinence No Hematuria No Vaginal discharge/bleeding No Skin rashes/ulcers No Back/joint pain/swelling Right knee pain Leg swelling/pain/redness No Bruising/petechiae/bleeding/melena No Sensory/motor No Polydipsia/polyuria/heat/cold intol No Lumps/bumps/swollen glands No Other Negative except as above PHYSICAL EXAMINATION None LABORATORY STUDIES Lab Results Component Value Date [...] 30 - 400 ng/mL 32 Thrombophilia testing The signing pathologist has (i) examined the relevant preparation(s) for the specimen(s) and (ii) rendered or confirmed the diagnosis(es). ?Thrombosis Screen DIAGNOSIS 1. Thrombocytosis. 2. Increased fibrinogen level. 3. ??No evidence for the presence of common hereditary/acquired hematologic ?risk factors associated with unexplained venous thromboembolism (see ?Discussion). Correction Note: ??This report is modified on 09/02/20 11:30 by Steffanie Arndt MD to add ??the results of lupus anticoagulant tests that were inadvertently omitted. ??There are ??no changes to the diagnosis. Electronically signed by: ?Steffanie Arndt MD Verified: ??09/02/2020 11:32 ??Hematopathologist Performed at: ??-[facility] Dept. of Pathology, [place], [place] ADDITIONAL STUDIES TEST ?(REFERENCE RANGE) ?RESULT Platelet count ?(145,000-357,000/uL) ?492,000/cumm PT ?(9.4-12.5) ? 13.0 sec PTT ? (25-37) ? 34 sec [...] antibodies ?(IgM </= 12.5 MPL) ?<9.4 MPL Eaxb-2-rykygekvdjxi-1 antibodies ??(IgG </= 20 units) ?<9.4 units Erai-9-jqmliwxpazay-1 antibodies ??(IgM </= 20 units) ?<9.4 units Homocysteine, random, plasma ?(</=15 umol/L) ?11 umol/L Factor V Leiden Mutation ?(normal) ? Not performed Prothrombin (84027 G->A) mutation (normal) ?Not performed### * Functional assay for free Protein S and Protein C The screening test for activated protein C resistance is negative, thus there is ??no evidence for the presence of factor V Leiden. ??The DNA assay for factor V Leiden ??is therefore not indicated and was not performed as part of this study. ### Not performed at the request of the referring physician. DISCUSSION Thrombocytosis may be associated with such conditions as acute and chronic ??inflammation (such as may be seen with acute venous thromboembolism), infection, ??iron deficiency, occult neoplasm or a myeloproliferative neoplasm. Suggest repeat ??testing at a suitable interval with further evaluation if persistent. The fibrinogen level is elevated, a finding that may be associated with acute/chronic ??inflammatory conditions and/or with obesity. If elevated fibrinogen persists (>400 ??mg/dL), it may contribute to increased risk for arterial and venous thrombosis in ??some populations (Rachel ?? et al., J. Thromb Haemost. ??2002). Suggest repeat testing ??in at least 3-4 months and when the patient is clinically well. L evels of protein C and protein S may be overestimated in the presence of rivaroxaban ??or apixaban. If there is strong suspicion for a deficiency of one of these proteins, ??suggest repeat testing after discontinuation of the potentially interfering ??medication. Although the thrombophilia screening panel is negative, this individual may have ??additional as yet undefined genetic or environmental risk factors for venous ??thrombosis. Consultation with a thrombosis specialist or genetic counselor may be ??helpful for further characterizing specific thrombosis risk for this patient, if ??clinically appropriate. 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 No family ??history of VTE. RADIOGRAPHIC STUDIES OUtside CT scan CT chest 04/28/20 Multiple new segmental and subsegmental PE in all lobes Moderate sized of hiatal hernia CT abdomen/pelvis 04/28/20 No acute abnormality in the abdomen/pelvis IMPRESSION Patricia Liu is a 79 y.o. woman with history of recurrent pulmonary embolism, who was [facility] for evaluation of pulmonary embolism, duration of anticoagulation. She also has history of recurrent iron deficiency anemia and thrombocytosis. Today she is scheduled for follow-up to discuss lab result & anticoagulation management. Her initial PE was diagnosed around her diagnosis of shingles about 6 years ago. I don't have her medical record from that time. Her recent second pulmonary embolism appeared to be unprovoked, [...] lab today showed resolution of anemia after IV iron infusion and her thrombocytosis has [...] GI evaluation, jane that this time she needs to stay on long-term anticoagulation which will put her at higher risk of bleeding. Her previous capsule study did show an area of non bleeding gastric erosion. With her known hx of moderate sized of hiatal hernia, david erosions which are erosions/ulcers that can occur in the sac of hiatal hernia can be possible. She also does have some epigastricdiscomfort for a few months. I suspected that her event was more likely due to GI bleeding rather than decreased oral iron absorption because she was doing fine for several years between the two events. If her iron deficiency anemia is truly due to bleeding secondary to hiatal hernia, surgical repair of this will reduce her future risk of recurrent bleeding. Now that she develops a new PE, I alsothink it is reasonable to rule out colorectal malignancy. I have called Dr. Mehta's office and have left my number for call back. I will discuss with her again about this. We discussed that given unprovoked nature of her pulmonary embolism, thrombophilia testing is reasonable.We reviewed her lab together which showed no evidence of inherited or acquired thrombophilia. Prothrombin gene mutation was not performed because the testing is generally not covered by health insurance and the result won't change my anticoagulation management. We discussed that her estimate risk for VTE recurrence is as high as 10-15%/year without anticoagulation and anticoagulation will reduce the risk for VTE recurrence down to 1%/year and the life-threatening bleeding risk on apixaban such as ICH is <1%/year. In her case, I think it is important tous to be sure that there is no ongoing source of bleeding somewhere that would potential put her atrisk of beleding if she continues to stay on long-term anticoagulation. I think we can lower her apixaban dose to 2.5 mg PO twice daily after initial 6 months of treatmentis completed based on this study. The AMPLIFY-EXT was the study evaluating efficacy/safety of different doses of apixaban after completion for acute treatment for 6 months for secondary VTE prophylaxis.The AMPLIFY-EXT showed that symptomatic VTE recurrence occurred in 8.8 who received placebo, 1.7% in patients receiving apixaban 2.5 mg PO BID and 1.7% in patients receiving apixaban 5 mg PO BID. The rates of major bleeding were 0.5% in the placebo group, 0.2% in the 2.5-mg apixaban group, and 0.1% in the 5-mg apixaban group. Therates of clinically relevant nonmajor bleeding were 2.3% in the placebo group, 3.0% in the 2.5-mg apixaban group, and 4.2% in the 5- mg apixaban group. The rate of from any cause was 1.7% in theplacebo group. ( Apixaban for extended treatment for VTE, Helena NUNES et al 2013; 368:699-708), Now that she is 4 months out from her PE, if she is interested to proceed with a TKA, this should be safe to do. We discussed that TKA is associated with high risk for developing recurrent thrombosis. We generally recommend to hold apixaban 3 days before procedure and resume 12 hours after procedure. I explained to her that apixaban is FDA approved for DVT prophylaxis post TKA. In case, if her TKA is scheduled prior to end of October 2020. it would be fine to reduce her apixaban to 2.5 mg PO twicedaily earlier and start her at this dose postop to minimize postoperative bleeding risk. PLAN/RECOMMENDATIONS 1.Recommend long-term anticoagulation - continue apixaban 5 mg PO twice daily for now - recommend reducing apixaban to 2.5 mg PO twice daily after initial 6 months of treatment is completed (04/28/20-10/26/20-> reduced the dose after end of October) 2. Recommend GI re evaluation (EGD+ colo) to rule out source of bleeding, jane that she will need tostay on long-term anticoagulation. I wonder if her GI bleeding could be due to erosion in the setting of moderate hiatal hernia. [place] rectal malignancy should also be ruled out in the setting of new PE. Await return call from PCP to discuss this. 3. Can consider right TKA in the future once she is further out from her PE and once the cause of anemia is identified - hold apixaban 3 days before procedure - resume apixaban at low dose 2.5 mg PO twice daily approximately 8-12 hours after surgery and stayat this dose long-term Patricia Liu had the opportunity to ask questions and indicated that all her questions were answered to her satisfaction. While I won't schedule a routine follow-up, she can call our office to scheduled as needed. I provided care to the patient via tele call. Total time of care: 20 minutes. Wendy Espana MD Addendum I personally talked to Dr. Mehta. She will talk to Patricia about GI work up. She is concerned of her persistent thrombocytosis. When Patricia was not iron deficient, her platelet has been running between 500-700. Now that she has a recurrent unprovoked PE, I think it is reasonable to consider myeloid sequence panel to rule out other rare mutation that can cause myeloproliferative disorder. This was not in thepast. I will see her if Samantha Pardo APRN can see her up at [facility] for the lab testing. Otherwise Patricia has to come to [facility] for her testing. Wendy Espana MD documented in this encounter Plan of Treatment Not on file documented as of this encounter Visit Diagnoses Diagnosis Recurrent pulmonary embolism Other pulmonary embolism and infarction Iron deficiency anemia, unspecified iron deficiency anemia type Reactive thrombocytosis documented in this encounter Care Teams Professor Of Criminal Justice Relationship Specialty Start Date End Date Roxy Mehta MD [address] [place] [address] PCP - General 02/23/10 documented as of this encounter
--- OUTSIDE RECORDS SUMMARY | 2023-10-19 11:10 | XMS_ITS | Encounter Summary ---
Author Organization [facility] Address [facility] [place] [address] Care Team Providers Care Environmental Air Specialist Name Role Phone Roxy Mehta MD Primary Care Provider [phone] Reason for Visit * Reason Comments Skin Check rough areas on hairl ine Encounter Details Date Type Department Care Team (Late st Contact Info) Description 12/12/2017 9:30 AM EDT Office Visit Dermatology at [facility] [address] [place] [address] Moody Beck MD [facility] [address] [place] [address] Ainsley Perez PA [facility] [address] [address] Lentigines; SKs (seborrheic keratoses) Social History Tobacco Use Types Packs/Day Years Used Date Smoking Tobacco: Former Smokeless Tobacco: Never Comments:1060's Sex and Gender Information Value Date Recorded Sex Assigned at Female 07/30/2020 12:05 PM EDT Gender Identity Female 07/30/2020 12:05 PM EDT Sexual Orientation Straight 07/30/2020 12 :05 PM EDT documented as of this encounter Progress Notes * Ainsley Perez PA - 12/12/2017 9:30 AM EDT DERMATOLOGY - ESTABLISHED PATIENT FOLLOW-UP Date of service: 12/12/2017 Patricia Liu : 1940, 76 y.o. CC: Chief Complaint Patient presents with ??? Skin Check rough areas on hairline HPI: Patricia Liu is a 76 y.o. female last seen by Dr. Beck on 01/05/2017 Ms. Liu returns today for a waist up exam with no particular spots of concern today. Relevant Skin History: Okay to leave detailed voice message with results? Yes Seborrheic Keratosis Actinic Keratosis ?? Family History: Melanoma: None Social History: - Medications: Current Outpatient Prescriptions Medication Sig Dispense Refill ??? apixaban (ELIQUIS) [...] PO, Twice daily No current facility-administered medications for this visit. Allergies: No Known Allergies Review of Systems: - General: Feels well. - Skin: No other skin concerns. Examination: - Constitutional: Patient was alert, well-appearing and in no noticeable distress. - Skin: Examination of skin from the waist up was performed. This includes examination of the skin of the face, ears, neck, chest, axillae, left and right upper extremities, hands, back, and abdomen. Diagnosis/Skin findings/Assessment/Plan: 1. Lentigines - Scattered: 0.3-0.6cm light-brown evenly pigmented, well- demarcated macules. - Patient reassured of benign nature. - Observe skin for change in color, size or character. Call if such occur. 2. Seborrheic keratoses - Scattered: Multiple 0.4-0.6cm brown papules with waxy, stuck-on appearance. Milia-like cysts, comedone-like openings and/or fissuring on dermoscopy. - Patient reassured of benign nature. - Advised patient to call if areas become inflamed or irritated. [facility] [id number] RTC: 1 year for FSE. Routed for scheduling. Note initiated by NIKKI TAMEZ. I, Stephanie Renteria, have performed the documentation for this encounter in the presence of and acting as a scribe for Ainsley Fowler) MIRIAN Perez. I performed the services which were documented by the scribe, and I agree with the accuracy of the documentation in this encounter. Ainsley Perez PA-C Reviewed and signed by Ainsley Perez PA-C [facility] Patient seen in conjunction with staff shoder filler: Moody Beck MD Section of Dermatology [facility] * Moody Beck MD - 12/12/2017 9:30 AM EDT Patient seen and examined. Scattered regular brown macules c/w solar lentigines- discussed suncare,reassured about benign nature. Scattered stuck on papules and plaques c/w SK's- reassured about benign nature. Patient seen in conjunction with Ainsley Perez PA-C (Bri) Signed by: MOODY BECK MD Section of Dermatology [facility] documented in this encounter Plan of Treatment Not on file documented as of this encounter Visit Diagnoses Diagnosis Lentigines Other dyschromia SKs (seborrheic keratoses) Other seborrheic keratosis documented in this encounter Care Teams Environmental Air Specialist Relationship Specialty Start Date End Date Roxy Mehta MD [address] [place] [address] PCP - General 02/23/10 documented as of this encounter
--- OUTSIDE RECORDS SUMMARY | 2023-10-19 11:10 | XMS_ITS | Encounter Summary ---
Author Organization [facility] [place] [address] Care Team Providers Care Private Investigator Surveillance Name Role Phone Roxy Mehta MD Primary Care Provider [phone] Encounter Details Date Type Department Care Team (Latest Contact Info) Description 10/03/2016 9:14 AM EDT - 10/03/2016 11:59 PM EDT Hospital Encounter [place] [address] Thrombocytosis Discharge Disposition: Home Social History Tobacco Use [...] End Date fluticasone propionate (Flonase) 50 mcg/actuation [place], Suspension Daily 07/12/2012 cholecalciferol, Vitamin D3, 50 [...] Procedure Name Priority Date/Time Associated Diagnosis Comments HEMOGRAM Routine 10/03/2016 9:24 AM EDT Thrombocytosis DIFFERENTIAL, AUTOMATED Routine 10/03/2016 9:24 AM EDT Thrombocytosis IRON AND TIBC Routine 10/03/2016 9:24 AM EDT Thrombocytosis RETICULOCYTE COUNT Routine 10/03/2016 9: 24 AM EDT Thrombocytosis CBC (WITH DIFF) Routine 10/03/2016 9:24 AM EDT Thrombocytosis FERRITIN Routine 10/03/2016 9:24 AM EDT Thrombocytosis COMPREHENSIVE METABOLIC PANEL (NON-FASTING) Routine 10/03/2016 9:24 AM EDT Thrombocytosis documented in this encounter Results * Differential, Automated (10/03/2016 9:24 AM EDT) Neutrophils % 55.4 % [facility] Neutr Abs (ANC) 4.34 1.70 - 6.10 x10(3)/[facility] Lymphocytes % 32.9 % [facility] Lymphocytes Abs 2.6 0.9 - 3.2 x10(3)/[facility] Monocytes % 8.4 % [facility] Monocyte Abs 0.7 0.3 - 0.9 x10(3)/[facility] Eosinophils % 1.5 % [facility] Eosinophils Abs 0.1 0.0 - 0.4 x10(3)/[facility] Basophils % 1.3 % [facility] Basophils Abs 0.1 0.0 - 0.1 x10(3)/[facility]OR[facility] Immature Gran % 0.50 % [facility] Comment: Immature granulocytes(IG's)percentage and absolute count will include metamyelocytes, myelocytes, and promyelocytes. Blood smears from CBCs yielding IG's will be scanned manually for concordance. If this scan disagrees with the automated IG or if promyelocytes are noted, a manual differential will be performed. [place] Gran Abs 0.04 0.00 - 0.04 x10(3)/[facility] LABORATORY Blood specimen (specimen) 10/03/2016 9:24 AM EDT 10/03/2016 9:27 AM EDT Narrative Resulting Agency Comment Spec In Lab Chris Jacobson MD HEMATOLOGY ORDERABLE S [facility] [place] [address] * (ABNORMAL) Hemogram (10/03/2016 9:24 AM EDT) WBC 7.8 4.0 - 9.5 x10(3)/[facility]ORY RBC 4.40 4.00 - 5.21 x10(6)/[facility] Hemoglobin 11.6(L) 11.7 - 15.5 gm/dL [facility] Hematocrit 38.1 35.7 - 45.8 % [facility] MCV 86.6 82.6 - 94.4 [facility] MCH 26.4(L) 27.1 - 32.0 pg [facility] MCHC 30.4(L) 31.7 - 35.0 gm/dL [facility] Platelets 688(H) 145 - 357 x10(3)/[facility] RDWSD 60.5(H) 37.0 - 46.0 [facility] RDWCV 19.4(H) 11.5 - 14.1 % [facility] MPV 8.6 7.6 - 12.9 [facility] nRBC % Auto 0.0 % [facility] nRBC Abs Auto 0.000 0.000 - 0.000 x10(3)/[facility] Blood specimen (specimen) 10/03/2016 9:24 AM EDT 10/03/2016 9:27 AM EDT Narrative Resulting Agency Comment Spec In Lab Chris Jacobson MD HEMATOLOGY ORDERABLE S [facility] [place] [address] * (ABNORMAL) Reticulocyte Count (10/03/2016 9:24 AM EDT) Retic Ct % 3.1(H) 0.7 - 2.5 % [facility] Retic Ct Abs 0.140(H) 0.020 - 0.110 x10(6)/[facility] LABORATORY Immature Retic% 22.7(H) 0.5 - 13.8 % [facility] Reticulated Hgb 36.4 29.8 - 39.4 pg [facility] Blood specimen (specimen) 10/03/2016 9:24 AM EDT 10/03/2016 9:27 AM EDT Narrative Resulting Agency Comment Spec In Lab Chris Jacobson MD HEMATOLOGY ORDERABLE S Performing Organization Address [facility] Co de Phone Number [facility] [place] [address] * Ferritin (10/03/2016 9:24 AM EDT) Ferritin 400 30 - 400 ng/mL [facility] Comment: Pediatric reference ranges not verified at [facility], interpret with caution. Reference ranges for females greater than 50 years of age approach values for men, i.e., 30-400 ng/mL. Blood specimen (specimen) 10/03/2016 9:24 AM EDT 10/03/2016 9:27 AM EDT Narrative Resulting Agency Comment Spec In Lab Chris Jacobson MD CHEMISTRY ORDERABLES Performing Organization Address [facility] Co de Phone Number [facility] [place] [address] * Iron and TIBC (10/03/2016 9:24 AM EDT) [facility] Signature Iron 74 30 - 150 mcg/dL [facility] TIBC 358 250 - 450 mcg/dL [facility] Iron Saturation 21 20 - 50 % [facility] Blood specimen (specimen) 10/03/2016 9:24 AM EDT 10/03/2016 9:27 AM EDT Narrative Resulting Agency Comment Spec In Lab Chris Jacobson MD CHEMISTRY ORDERABLES Performing Organization Address [facility]/ZIP Co de Phone Number [facility] [place] [address] * (ABNORMAL) Comprehensive metabolic panel (non-fasting) (10/03/2016 9:24 AM EDT) [facility] Signature Glucose Lvl 106 65 - 199 mg/dL [facility] Comment:Diabetes: >=200 mg/d L plus symptoms BUN 14 8 - 18 mg/dL [facility] Creatinine 0.90 0.70 - 1.20 mg/dL [facility] Comment: Please note that the pediatric reference intervals supplied above were not validated at [facility]. Results from pediatric patients should be interpreted in conjunction to the patient's age, height and muscle mass. Sodium 139 135 - 145 mmol/L [facility] Potassium 4.2 3.5 - 5.0 mmol/L [facility] Comment: Please note: ??Patients with WBC >100,000 may have falsely elevated Potassium levels. ??For accurate Potassium quantification in these patients send serum separator tube (gold top) for subsequent determinations. ??Contact the Clinical Chemistry Laboratory if there are any questions. Chloride 97(L) 98 - 107 mmol/L [facility] CO2 22 22 - 31 mmol/L [facility] Anion Gap 20(H) 5 - 15 mmol/L [facility] Calcium 9.8 8.5 - 10.5 mg/dL [facility] Total Protein 7.5 6.1 - 8.0 gm/dL [facility] Albumin 4.3 3.2 - 5.2 gm/dL [facility] AST 13 0 - 30 unit/L [facility] ALT 16 0 - 30 unit/L [facility] Alk Phos 115(H) 40 - 104 unit/L [facility] Total Bilirubin <0.2(L) 0.2 - 1.3 mg/dL [facility] Bili, Direct <0.1 0.0 - 0.3 mg/dL [facility] Estimated GFR >60 >=60 [facility] Comment: This estimated GFR (eGFR) [...] the following links into your internet browser. [email or web address] Blood specimen (specimen) 10/03/2016 9:24 AM EDT 10/03/2016 9:27 AM EDT Narrative Resulting Agency Comment Spec In Lab Chris Jacobson MD CHEMISTRY ORDERABLES [facility] [place] [address] documented in this encounter Visit Diagnoses Diagnosis Thrombocytosis Essential thrombocythemia documented in this encounter Care Teams Private Investigator Surveillance Relationship Specialty Start Date End Date Roxy Mehta MD [address] [facility] [address] [place] [address] PCP - General 02/23/10 documented as of this encounter
--- OUTSIDE RECORDS SUMMARY | 2023-10-19 11:10 | XMS_ITS | Encounter Summary ---
Author Organization [facility] Address [facility] [place] [address] Care Team Providers Care Sliver Machine Operator Name Role Phone Roxy Mehta MD Primary Care Provider [phone] Encounter Details Date Type Department Care Team (Late st Contact Info) Description 09/14/2016 External Results [facility] [place] [address] Samantha Pardo OPERATIONS OFFICER [employer] DEPARTMENT [facility] [address] HEMATOLOGY/[place] [address] Social History Tobacco Use Types Packs/Day Years [...] Procedure Name Priority Date/Time Associated Diagnosis Comments CHEMOTHERAPY SCAN Routine 09/14/2016 documented in this encounter Results * Scan Doc: Chemotherapy (09/14/2016) Samantha Pardo OPERATIONS OFFICER [employer] DEPARTMENT MEDIA MGR SCAN EXT O RDR/RSLT documented in this encounter Visit Diagnoses Not on filedocumented in this encounter Care Teams Sliver Machine Operator Relationship Specialty Start Date End Date Roxy Mehta MD [address] [place] [address] PCP - General 02/23/10 documented as of this encounter
--- OUTSIDE RECORDS SUMMARY | 2023-10-19 11:10 | XMS_ITS | Encounter Summary ---
Author Organization [facility] [place] [address] Care Team Providers Care Government Instructor Name Role Phone Roxy Mehta MD Primary Care Provider [phone] Encounter Details Date Type Department Care Team (Late st Contact Info) Description 04/28/2020 12:05 AM EST Ancillary Procedure [place] [address] Roxy Mehta MD [address] [place], [place] [id number] Social History Tobacco Use Types Packs/Day Years [...] FILM LIBRARY STORAGE ONLY CT CHEST Routine 04/28/2020 12:05 AM EST documented in this encounter Results * Film Library- Storage Only CT Chest (04/28/2020 12:05 AM EST) Narrative [facility] - 05/07/2020 4:50 PM EST This exam is auto-finalizing. It's purpose is for storage only. Roxy Mehta MD [facility] FILM LIBRARY ORD ERABLES [place] documented in this encounter Visit Diagnoses Not on filedocumented in this encounter Care Teams Government Instructor Relationship Specialty Start Date End Date Roxy Mehta MD [address] [place] [address] [address] [place] [address] PCP - General 02/23/10 documented as of this encounter
--- OUTSIDE RECORDS SUMMARY | 2023-10-19 11:10 | XMS_ITS | Encounter Summary ---
Author Organization [facility] Address [facility] [place] [address] Care Team Providers Care Acute Care Clinical Nurse Specialist Name Role Phone Roxy Mehta MD Primary Care Provider [phone] Reason for Visit * Consultation (Urgent) - Closed Specialty Diagnoses / Procedures Referred By Contac t Referred To Contact Pulmonology Diagnoses Pulmonary hypertension, unspecified Multiple subsegmental pulmonary emboli without acute cor pulmonale Roxy Mehta MD [address] [place] [address] [facility] [address] [place] [id number] Referral ID Status Reason Start Date Expiration Date V isits Requested Visits Authorized [id number] Closed Consult, Test & Treat Connection Center PCP Updated and/or Approved 05/07/2020 05/07/2021 6 6 Encounter Details Date Type Department Care Team (Late st Contact Info) Description 08/04/2020 2:00 PM EDT Office [place] [address] Camryn Valdez MD [facility] Pulmonary [place] [address] Carlton Choi MD [facility] [place] [address] REED (dyspnea on exertion) Social History Tobacco Use Types Packs/Day Years [...] Sign Reading Time Taken Comments Blood Pressure 143/66 08/04/2020 1:27 PM EDT Pulse 78 08/04/2020 1:27 PM EDT Temperature 36.1 ??C (97 ??F) 08/04/2020 1:27 PM EDT Respiratory Rate - - Oxygen Saturation 97% 08/04/2020 1:27 PM EDT Inhaled Oxygen Concentration - - Weight 78.9 kg (174 lb) 08/04/2020 1:27 PM EDT Height - - Body Mass Index 30.83 10/03/2016 10:44 AM EDT documented in this encounter Progress Notes * Carlton Choi - 08/04/2020 2:00 PM EDT Images from the original note were not included. 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 Patricia reports a history of waxing and waning fatigue, malaise, and dyspnea that seem to correspond with Hgb levels. During one of these episodes in April, a D-dimer was checked and was elevated. She was found to have bilateral pulmonary embolisms, and she is now on apixaban with plan for ongoing therapy. In general, dyspnea tends to improve after iron infusion. Her last infusion was in May and currently, she doesn't feel much dyspnea and doesn't feel limited in regular activity by shortness of breath. For the past couple of weeks she has been using a Symbicort inhaler, but hasn't noticed any effect She reports she had an initial pulmonary embolism 6 years ago, in the setting of a Shingles infection. She's not sure how long she was on anticoagulation after that. She doesn't have cough, hemoptysis, wheeze, chest pain, or fevers or chills. Weight tends to fluctuate with episodes of malaise, but has recently been stable. There was concern from her son for toxic mold exposure, but she doesn't know of any mold in her home and notes her symptoms have persisted despite 2 separate environments. Past Medical and Surgical History: Recurrent VTE Iron deficiency anemia Thromboctyosis Hypertension GERD Diabetes Type 2 Family History: No known family history of lung disease or clotting disorder. Social and Occupational History: 15 pack year smoking history, quit 20 years ago. . No known mold or water damage in the home. Current Medications at Start of Encounter: Outpatient Medications Prior to Visit Medication Sig Dispense Refill ??? losartan potassium (LOSARTAN ORAL) Take by mouth. ??? apixaban (ELIQUIS) 5 mg Tablet Take [...] = 1 Tablet(s), PO, Twice daily No facility-administered medications prior to visit. Adverse Drug Reactions: No Known Allergies Review of Systems: An 11-point ROS was negative except per the HPI. Physical Examination: BP 143/66 HR 78 T 98 Ow sat 97% RA General: Well-appearing woman, not in distress HEENT: Sclera anicteric. Moist mucus membranes. Neck: Supple, no palpable lymphadenopathy, no JVD Heart: Normal S1S2, RRR, no murmurs Lungs: Clear bilaterally to auscultation without rales, wheeze, or rhonchi Extremities: Warm, well-perfused, no lower extremity edema Labs: 04/2020 labs with Hgb 9, platelets 750, eos 180, normal renal function and electrolytes with CO2 23 Imaging: CT chest 04/28 with mild dependent atelectasis, bilateral pulmonary emboli Echocardiogram: 2020: EF 60%, normal RV size and function, normal biatrial size, RVSP 31 mm HG Pulmonary Function Tests: Date FVC FEV1 Ratio TLC RV RV/TLC ERV DLCO 6MWT 08/03/2020 122% 128% 0.79 88% Spirometry is normal. Diffusing capacity, uncorrected for hemoglobin, is normal. Impression and Plan of Care: This is a 79-year old woman with iron deficiency anemia and recurrent VTE. It seems that her dyspnea largely coincides with episodes of fatigue, and may be secondary to iron deficiency. She does not have evidence of obstructive airway disease, and we discussed that she can stop using Symbicort and monitor for worsening symptoms. Reassuringly, TTE obtained after her most recent pulmonary embolism does not show evidence of pulmonary hypertension, and normal DLCO is also reassuring against this possibility. If she were to develop worsening exercise intolerance the absence of worsening anemia, it would be reasonable to repeat TTE and PFTs to evaluate for CTEPH. At this time, agree with ongoing anticoagulation and hematology evaluation. Finally, we discussed that there is no evidence on imaging or PFTs of pulmonary toxicity from mold exposure. We are happy to see Patricia back in pulmonary clinic should any future problems arise. Carlton Choi MD [facility] PULMON[facility] AT [facility] [address] Dept: [phone] Loc: [phone] * Camryn Valdez MD - 08/04/2020 2:00 PM EDT I have seen the patient in person and reviewed the fellow's above history and I agree with the details as written. The assessment and plan were formulated in discussion with me and I agree with them as documented. 79 y/o woman with dyspnea in the setting of recurrent PE and anemia, who has a clear chest exam, normal lung function, clear chest imaging and normal cardiac function on ECHO after recent PE. At thistime we have not found evidence of pulmonary disease to explain dyspnea. Recommend additional investigation of cardiac function if dyspnea is progressive while on anticoagulation. Camryn Valdez MD documented in this encounter Plan of Treatment Not on file documented as of this encounter Visit Diagnoses Diagnosis REED (dyspnea on exertion) Other dyspnea and respiratory abnormality documented in this encounter Care Teams Acute Care Clinical Nurse Specialist Relationship Specialty Start Date End Date Roxy Mehta MD [address] [place] [address] PCP - General 02/23/10 documented as of this encounter
--- OUTSIDE RECORDS SUMMARY | 2023-10-19 11:10 | XMS_ITS | Encounter Summary ---
Author Organization [facility] Address [facility] [place] [address] Care Team Providers Care Corn Husk Baler Name Role Phone Roxy Mehta MD Primary Care Provider [phone] Encounter Details Date Type Department Care Team (Late st Contact Info) Description 05/15/2020 Orders [place] [address] Jb Gross MD [facility] [place] [address] Pulmonary hypertension (Primary Dx) Social History Tobacco Use Types Packs/Day Years Used Date Smoking Tobacco: Former Smokeless Tobacco: Never Comments:1958's Sex and Gender Information Value Date Recorded Sex Assigned at Female 07/30/2020 12:05 PM EDT Gender Identity Female 07/30/2020 12:05 PM EDT Sexual Orientation Straight 07/30/2020 12 :05 PM EDT documented as of this encounter Progress Notes * Tali Lim - 05/15/2020 12:20 PM EST p documented in this encounter Plan of Treatment Not on file documented as of this encounter Results * Pulmonary Function Testing [...] / FVC LLN 63 % COMPAS PFT [id number] Actual Pre-BD 2.40 L/s COMPAS PFT [id number] Pre-BD % of Predicted 157 % COMPAS PFT [id number] Predicted 1.53 L/s COMPAS PFT [id number] Pre-BD Z-Score 1.14 COMPAS PFT DLCO Hb [...] in this encounter Visit Diagnoses Diagnosis Pulmonary hypertension- Primary Other chronic pulmonary heart diseases Pulmonary hypertension Other chronic pulmonary heart diseases documented in this encounter Care Teams Corn Husk Baler Relationship Specialty Start Date End Date Roxy Mehta MD [address] [place] [address] PCP - General 02/23/10 documented as of this encounter
--- OUTSIDE RECORDS SUMMARY | 2023-10-19 11:10 | XMS_ITS | Encounter Summary ---
Author Organization [facility] Address [facility] [place] [address] Care Team Providers Care Embedded Software Engineer Name Role Phone Roxy Mehta MD Primary Care Provider [phone] Reason for Visit * Consultation (Routine) - Closed Specialty Diagnoses / Procedures Referred By Contac t Referred To Contact Dermatology Diagnoses Disorder of the skin and subcutaneous tissue, unspecified SK ON MORAVIAN, GROWING Roxy Mehta MD [address] [place] [address] [facility] Dermatology [address] [place] [address] Referral ID Status Reason Start Date Expiration Date V isits Requested Visits Authorized [id number] Closed Consult, Test & Treat Connection Center PCP Updated and/or Approved 03/04/2021 03/04/2022 6 6 Encounter Details Date Type Department Care Team (Late st Contact Info) Description 05/11/2021 11:30 AM EST Office Visit Dermatology at [facility] [address] [place] [address] Ramón Grijalva MD [facility] [address] [address] Seborrheic keratosis, inflamed; SK (seborrheic keratosis) Social History Tobacco Use Types Packs/Day Years Used Date Smoking Tobacco: Former Cigarettes Smokeless Tobacco: Never Comments:1960's Sex and Gender Information Value Date Recorded Sex Assigned at Female 07/30/2020 12:05 PM EDT Gender Identity Female 07/30/2020 12:05 PM EDT Sexual Orientation Straight 07/30/2020 12 :05 PM EDT documented as of this encounter Progress Notes * Ramón Grijalva MD - 05/11/2021 11:30 AM EST Images from the original note were not included. DEPARTMENT OF DERMATOLOGY Medical Dermatology Clinic Provider: Ramón Grijalva MD Patient's preferred name Patricia Preferred contact method for results []Phone []myD-H []Letter Detailed phone message OK? Yes Are there any other people with whom we may discuss your care? Past Medical History Date, location, treatment Melanoma N Dysplastic nevi N SCC N BCC N AKs LN2 Other relevant past medical history SK 07/20/17: right breast, SK s/p excision Family History Details Melanoma ? NMSC Mother: unknown type Other relevant family history N Social History Occupation: Retired Pre-Procedure Questions Details Allergy to lidocaine, epinephrine, Dermabond, chlorhexidine, or adhesives Bleeding disorder or blood thinners Eliquis Pacemaker, defibrillator, deep brain stimulator, cochlear implant History of Present Illness: Patricia Liu is a 80 y.o. Patient returns to clinic today for a concerning spot on the right forehead that seems to be growing, it is itchy. She also has some other growths on her body that she would like checked. Last visit at Dermatology: 01/03/2019 Last visit with this provider: Visit date not found Medications: Reviewed in eD-H Allergies: Reviewed in eD-H Skin Examination: Waist-up skin examination: Patient was asked to disrobe to the level of their comfort. Patient elected to remain clothed below the waist. Examination of the scalp, hair, face, ears, neck, back, chest, abdomen, and upper extremities was normal with the exception of the findings below. Assessment/Plan # Irritated Seborrheic keratosis- brown stuck on papule on the right hindu -benign nature of lesions discussed -patient reassured. Hx of intermittent itch. Plan: Treatment with curettage and LN2 Procedure Note: Procedure: Destruction of lesion(s) with curettage and cryotherapy. Number: 1 Location: as above Discussed procedure and expectations including risks (including risk of hypopigmentation) and benefits. Verbal consent obtained. Lesion was debulked with a curette and frozen with LN2, 15-30 second thaw time, TWICE. There were no complications; the patient tolerated the procedure well. Post-procedure expectations and wound care were reviewed. # Seborrheic Keratoses - numerous stuck on, waxy papules on the face, chest, back - Benign. No treatment needed. RTC: PRN []Note routed to school attendance secretary []Recall placed in scheduling system []Appointment scheduled at checkout Scribe attestation: Delon Herzog CMA has performed the documentation for this encounter in the presence of and acting as a scribe for Ramón Grijalva MD. I performed the above scribed service and agree with the accuracy of the documentation in this encounter. Reviewed and signed by: Ramón Grijalva MD Dermatology [facility] documented in this encounter Plan of Treatment Not on file documented as of this encounter Visit Diagnoses Diagnosis Seborrheic keratosis, inflamed Inflamed seborrheic keratosis SK (seborrheic keratosis) Other seborrheic keratosis documented in this encounter Care Teams Embedded Software Engineer Relationship Specialty Start Date End Date Roxy Mehta MD [address] [address] PCP - General 02/23/10 documented as of this encounter
--- OUTSIDE RECORDS SUMMARY | 2023-10-19 11:10 | XMS_ITS | Encounter Summary ---
Author Organization [facility] Address [facility] [place] [address] Care Team Providers Care Grinder Machine Setter Name Role Phone Roxy Mehta MD Primary Care Provider [phone] Encounter Details Date Type Department Care Team (Late st Contact Info) Description 07/13/2020 Telephone Dermatology at [facility] [address] [place] [address] Joyce Truong MD [facility] [place] [address] Social History Tobacco Use Types Packs/Day Years Used Date Smoking Tobacco: Former Smokeless Tobacco: Never Comments:1960's Sex and Gender Information Value Date Recorded Sex Assigned at Female 07/30/2020 12:05 PM EDT Gender Identity Female 07/30/2020 12:05 PM EDT Sexual Orientation Straight 07/30/2020 12 :05 PM EDT documented as of this encounter Miscellaneous Notes * Telephone Encounter - Yina Mott - 07/13/2020 2:[address] Truong patient Patricia declined to schedule her yearly skin check with Dr. Truong. documented in this encounter Plan of Treatment Not on file documented as of this encounter Visit Diagnoses Not on filedocumented in this encounter Care Teams Grinder Machine Setter Relationship Specialty Start Date End Date Roxy Mehta MD [address] [place] [address] PCP - General 02/23/10 documented as of this encounter
--- OUTSIDE RECORDS SUMMARY | 2023-10-19 11:10 | XMS_ITS | Encounter Summary ---
Author Organization [facility] [place] [address] Care Team Providers Care Engineering Model Maker Name Role Phone Roxy Mehta MD Primary Care Provider [phone] Encounter Details Date Type Department Care Team (Late st Contact Info) Description 08/28/2016 Ancillary Procedure [place] [id number] Roxy Mehta MD [address] [place] [address] Social History Tobacco Use Types [...] FILM LIBRARY STORAGE ONLY CT CHEST Routine 08/28/2016 12:00 AM EDT documented in this encounter Results * Film Library- Storage Only CT Chest (08/28/2016 12:00 AM EDT) Narrative [facility] - 05/07/2020 4:43 PM EST This exam is auto-finalizing. It's purpose is for storage only. Roxy Mehta MD [facility] FILM LIBRARY ORD ERABLES [place], [place] documented in this encounter Visit Diagnoses Not on filedocumented in this encounter Care Teams Engineering Model Maker Relationship Specialty Start Date End Date Roxy Mehta MD [address] [place] [address] PCP - General 02/23/10 documented as of this encounter
--- OUTSIDE RECORDS SUMMARY | 2023-10-19 11:10 | XMS_ITS | Encounter Summary ---
Author Organization [facility] [place] [address] Care Team Providers Care Cloth Weigher Name Role Phone Roxy Mehta MD Primary Care Provider [phone] Encounter Details Date Type Department Care Team (Latest Contact Info) Description 09/12/2016 1:24 PM EDT - 09/12/2016 1:36 PM EDT Hospital Encounter [place]ology [place] [address] Iron deficiency anemia due to chronic blood loss Discharge Disposition: Home Social History Tobacco Use [...] (2,000 unit) Capsule 2,000 Units daily. 07/28/2016 aspirin 81 mg Tablet, Delayed Release (E.C.) [...] Procedure Name Priority Date/Time Associated Diagnosis Comments SCAN, PERIPHERAL BLOOD STAT 7 1:47 PM EDT HEMOGRAM STAT 09/12/2016 1:47 PM EDT Iron deficiency anemia due to chronic blood loss DIFFERENTIAL, AUTOMATED STAT 09/12/2016 1:47 PM EDT Iron deficiency anemia due to chronic blood loss IRON AND TIBC STAT 09/12/2016 1:47 PM EDT Iron deficiency anemia due to chronic blood loss RETICULOCYTE COUNT STAT 09/12/2016 1: 47 PM EDT Iron deficiency anemia due to chronic blood loss CBC (WITH DIFF) STAT 09/12/2016 1:47 PM EDT Iron deficiency anemia due to chronic blood loss TSH STAT 09/12/2016 1:47 PM EDT Iron deficiency anemia due to chronic blood loss T4, FREE STAT 09/12/2016 1:47 PM EDT LACTATE DEHYDROGENASE STAT 09/12/2016 1:47 PM EDT Iron deficiency anemia due to chronic blood loss FERRITIN STAT 09/12/2016 1:47 PM EDT Iron deficiency anemia due to chronic blood loss COMPREHENSIVE METABOLIC PANEL (NON-FASTING) STAT 09/12/2016 1:47 PM EDT Iron deficiency anemia due to chronic blood loss documented in this encounter Results * T4, free (09/12/2016 1:47 PM EDT) [facility] Free T4 1.10 0.93 - 1.70 ng/dL [facility] Blood specimen (specimen) Venous Draw / Unknown 09/12/2016 1:47 PM EDT 09/12/2016 2:28 PM EDT Narrative Resulting Agency Comment Spec In Lab Samantha Pardo APRN CHEMISTRY ORDERABLES Performing Organization Address City/[facility]/ZIP Co de Phone Number [facility] [place] [address] * Scan, Peripheral Blood (09/12/2016 1:47 PM EDT) [facility] Plat Estimate Increased [facility] RBC Morphology Abnormal [facility] Microcytes 1-5 /HPF [facility] Hypochromia Slight [facility] Polychromasia Present >5/HPF [facility] Ovalocytes 1-5 /HPF [facility] Giant Platelets Less than 1 /HPF [facility] Blood specimen (specimen) 09/12/2016 1:47 PM EDT 09/12/2016 1:54 PM EDT Narrative Resulting Agency Comment Spec In Lab Samantha Pardo APRN HEMATOLOGY ORDERABLE S Performing Organization Address City/[facility]/ZIP Co de Phone Number [facility] [place] [address] * (ABNORMAL) Differential, Automated (09/12/2016 1:47 PM EDT) [facility] Neutrophils % 52.9 % [facility] Neutr Abs (ANC) 5.48 1.70 - 6.10 x10(3)/[facility] Lymphocytes % 36.1 % [facility] Lymphocytes Abs 3.7(H) 0.9 - 3.2 x10(3)/[facility] Monocytes % 6.9 % [facility] Monocyte Abs 0.7 0.3 - 0.9 x10(3)/[facility] Eosinophils % 2.7 % [facility] Eosinophils Abs 0.3 0.0 - 0.4 x10(3)/[facility] Basophils % 0.9 % [facility] Basophils Abs 0.1 0.0 - 0.1 x10(3)/[facility] Immature Gran % 0.50 % [facility] Comment: Immature granulocytes(IG's)percentage and absolute count will include metamyelocytes, myelocytes, and promyelocytes. Blood smears from CBCs yielding IG's will be scanned manually for concordance. If this scan disagrees with the automated IG or if promyelocytes are noted, a manual differential will be performed. [place] Gran Abs 0.05(H) 0.00 - 0.04 x10(3)/[facility] Blood specimen (specimen) 09/12/2016 1:47 PM EDT 09/12/2016 1:54 PM EDT Narrative Resulting Agency Comment Spec In Lab Samantha Pardo CHEMIST INTERNSHIP HEMATOLOGY ORDERABLE S [facility] [place] [address] * (ABNORMAL) Hemogram (09/12/2016 1:47 PM EDT) Pathologist [facility] WBC 10.3(H) 4.0 - 9.5 x10(3)/[facility] LABORATORY RBC 3.34(L) 4.00 - 5.21 x10(6)/[facility] Hemoglobin 8.5(L) 11.7 - 15.5 gm/dL [facility] Hematocrit 28.3(L) 35.7 - 45.8 % [facility] MCV 84.7 82.6 - 94.4 fL [facility] MCH 25.4(L) 27.1 - 32.0 pg [facility] MCHC 30.0(L) 31.7 - 35.0 gm/dL [facility] Platelets 928(H) 145 - 357 x10(3)/[facility] LABORATORY RDWSD 47.8(H) 37.0 - 46.0 [facility] LABORATORY RDWCV 15.8(H) 11.5 - 14.1 % [facility] MPV 8.4 7.6 - 12.9 fL [facility] nRBC % Auto 0.0 % [facility] nRBC Abs Auto 0.000 0.000 - 0.000 x10(3)/[facility] Blood specimen (specimen) 09/12/2016 1:47 PM EDT 09/12/2016 1:54 PM EDT Narrative Resulting Agency Comment Spec In Lab Samantha Pardo APRN HEMATOLOGY ORDERABLE S [facility] [place] [address] * (ABNORMAL) TSH (09/12/2016 1:47 PM EDT) TSH 4.27(H) 0.27 - 4.20 mlU/ML [facility] Blood specimen (specimen) 09/12/2016 1:47 PM EDT 09/12/2016 1:54 PM EDT Narrative Resulting Agency Comment Spec In Lab Samantha Pardo CHEMIST INTERNSHIP CHEMISTRY ORDERABLES [facility] [place] [address] * Lactate Dehydrogenase (09/12/2016 1:47 PM EDT) LDH 163 110 - 220 unit/L [facility] Blood specimen (specimen) 09/12/2016 1:47 PM EDT 09/12/2016 1:54 PM EDT Narrative Resulting Agency Comment Spec In Lab Samantha Pardo APRN CHEMISTRY ORDERABLES Performing Organization Address [facility]/ZIP Co de Phone Number [facility] [place] [address] * (ABNORMAL) Reticulocyte Count (09/12/2016 1:47 PM EDT) Pathologist [facility] Retic Ct % 4.4(H) 0.7 - 2.5 % [facility] Retic Ct Abs 0.150(H) 0.020 - 0.110 x10(6)/mc L [facility] Immature Retic% 27.6(H) 0.5 - 13.8 % [facility] Reticulated Hgb 22.5(L) 29.8 - 39.4 pg [facility] Blood specimen (specimen) 09/12/2016 1:47 PM EDT 09/12/2016 1:54 PM EDT Narrative Resulting Agency Comment Spec In Lab Samantha Pardo APRN HEMATOLOGY ORDERABLE S Performing Organization Address [facility]/ZIP Co de Phone Number [facility] [place] [address] * (ABNORMAL) Iron and TIBC (09/12/2016 1:47 PM EDT) Iron 20(L) 30 - 150 mcg/dL [facility] TIBC 456(H) 250 - 450 mcg/dL [facility] Iron Saturation 4(L) 20 - 50 % [facility] Blood specimen (specimen) 09/12/2016 1:47 PM EDT 09/12/2016 1:54 PM EDT Narrative Resulting Agency Comment Spec In Lab Samantha Pardo APRN CHEMISTRY ORDERABLES Performing Organization Address [facility] Co de Phone Number [facility] [place] [address] * (ABNORMAL) Ferritin (09/12/2016 1:47 PM EDT) [facility] Ferritin 25(L) 30 - 400 ng/mL [facility] Comment: Pediatric reference ranges not verified at [facility], interpret with caution. Reference ranges for females greater than 50 years of age approach values for men, i.e., 30-400 ng/mL. Blood specimen (specimen) 09/12/2016 1:47 PM EDT 09/12/2016 1:54 PM EDT Narrative Resulting Agency Comment Spec In Lab Samantha Pardo APRN CHEMISTRY ORDERABLES Performing Organization Address [facility] Co de Phone Number [facility] [place] [address] * (ABNORMAL) Comprehensive metabolic panel (non-fasting) (09/12/2016 1:47 PM EDT) [facility] Glucose Lvl 90 65 - 199 mg/dL [facility] Comment:Diabetes: >=200 mg/d L plus symptoms BUN 22(H) 8 - 18 mg/dL [facility] Creatinine 0.89 0.70 - 1.20 mg/dL [facility] Comment: Please note that the pediatric reference intervals supplied above were not validated at [facility]. Results from pediatric patients should be interpreted in conjunction to the patient's age, height and muscle mass. Sodium 139 135 - 145 mmol/L [facility] Potassium 4.2 3.5 - 5.0 mmol/L [facility] Comment: Please note: ??Patients with WBC >100,000 may have falsely elevated Potassium levels. ??For accurate Potassium quantification in these patients send serum separator tube (gold top) for subsequent determinations. ??Contact the Clinical Chemistry Laboratory if there are any questions. Chloride 100 98 - 107 mmol/L [facility] CO2 20(L) 22 - 31 mmol/L [facility] Anion Gap 19(H) 5 - 15 mmol/L [facility] Calcium 9.5 8.5 - 10.5 mg/dL [facility] Total Protein 7.4 6.1 - 8.0 gm/dL [facility] Albumin 4.4 3.2 - 5.2 gm/dL [facility] AST 19 0 - 30 unit/L [facility] ALT 13 0 - 30 unit/L [facility] Alk Phos 131(H) 40 - 104 unit/L [facility] Total Bilirubin <0.2(L) 0.2 - 1.3 mg/dL [facility] Bili, Direct <0.1 0.0 - 0.3 mg/dL [facility] Estimated GFR >60 >=60 [facility] Comment: This estimated GFR [...] the following links into your internet browser. [email or web address] Blood specimen (specimen) 09/12/2016 1:47 PM EDT 09/12/2016 1:54 PM EDT Narrative Resulting Agency Comment Spec In Lab Samantha Pardo APRN CHEMISTRY ORDERABLES [facility] [place] [address] documented in this encounter Visit Diagnoses Diagnosis Iron deficiency anemia due to chronic blood loss Iron deficiency anemia secondary to blood loss (chronic) documented in this encounter Care Teams Cloth Weigher Relationship Specialty Start Date End Date Roxy Mehta MD [address] [place] [address] PCP - General 02/23/10 documented as of this encounter
--- OUTSIDE RECORDS SUMMARY | 2023-10-19 11:10 | XMS_ITS | Encounter Summary ---
Author Organization [facility] Address [facility] [place] [address] Care Team Providers Care Rn Infusion Name Role Phone Roxy Mehta MD Primary Care Provider [phone] Reason for Visit * Reason Comments Skin Check Skin Lesion spots on chest now s preading to face Encounter Details Date Type Department Care Team (Late st Contact Info) Description 01/05/2017 11:15 AM EDT Office Visit Dermatology at [place] [address] [place] [address] Joyce Truong MD [facility] [address] [place] [address] Giordano angioma; Seborrheic keratosis; Solar lentigo Social History Tobacco Use Types Packs/Day Years Used Date Smoking Tobacco: Former Smokeless Tobacco: Never Comments:1060's Sex and Gender Information Value Date Recorded Sex Assigned at Female 07/30/2020 12:05 PM EDT Gender Identity Female 07/30/2020 12:05 PM EDT Sexual Orientation Straight 07/30/2020 12 :05 PM EDT documented as of this encounter Progress Notes * Joyec Truong MD - 01/05/2017 11:15 AM EDT DERMATOLOGY ESTABLISHED PATIENT CLINIC NOTE Date of service: 01/05/2017 Patricia Santizo Noe : 1940 Provider: Joyce Truong MD PROBLEM: Spots on my chest and now on my face SKIN HISTORY: Seborrheic Keratosis Actinic Keratosis HPI Ms. Liu is a 76 y.o. female .Established patient to me . She is here for a complete skin examination with concerns of spots on my chest and now on my face and I don't like them ADR: Review of patient's allergies indicates no [...] A total body skin exam except for the genitalia was performed. This includes examination of the skin of the face, ears, neck, chest, axillae, left and right upper and lower extremities, hands, feet, abdomen, back, and buttocks. The genitalia, perineum, and perianal areas were not examined. Significant skin findings: A. Few, 0.3cm bright red, well-demarcated papules B. Few,scattered 0.4cm brown papules with waxy, stuck-on appearance. C. 0.3-0.6cm light-brown evenly pigmented, well-demarcated macules ASSESSMENT/PLAN: A. Giordano Angiomas - Reassured about benign nature and natural history. B. Seborrheic Keratoses -Reassured about benign nature and natural history. C. Solar Lentigines -Reassured about benign nature and natural history. -Sun avoidance, protective clothing and the use of SPF 30 sunscreen is advised. Observe closely forskin changes and call if such occurs. RTC January 2018 for full skin exam, or sooner as needed. I am documenting this encounter acting as the scribe for and in the presence of Dr. Truong. DENISE HYDE WEATHERIZATION ADMINISTRATORJose Maria Burgos is documenting this encounter acting as the scribe for and in the presence of Joyce Truong MD. I performed the above scribed service and agree with the accuracy of the documentation in this encounter. Joyce Truong MD Section of Dermatology [facility] documented in this encounter Plan of Treatment Not on file documented as of this encounter Visit Diagnoses Diagnosis Giordano angioma Nevus, non-neoplastic Seborrheic keratosis Other seborrheic keratosis Solar lentigo Other dyschromia documented in this encounter Care Teams Rn Infusion Relationship Specialty Start Date End Date Roxy Mehta MD [address] [facility] [place] [address] PCP - General 02/23/10 documented as of this encounter
--- OUTSIDE RECORDS SUMMARY | 2023-10-19 11:11 | XMS_ITS | Encounter Summary ---
[place] [address] Care Team Providers Care Wardrobe Specialty Worker Name Role Phone Roxy Mehta MD Primary Care Provider [phone] Reason for Visit * Auth/Cert Specialty Diagnoses / Procedures Referred By Kishore t Referred To Contact Diagnoses FE Anemia Procedures PRG GI TRACT IMAGING, INTRALUMINAL, ESOPHAGUS THROUGH ILEUM, W INTERP & REPORT VIDEO CAPSULE ENDOSCOPY Referral ID Status Reason Start Date Expiration Date Visits Re quested Visits Authorized [id number] 1 1 Encounter Details Date Type Department Care Team (Late st Contact Info) Description 09/24/2015 7:30 AM EDT - 09/24/2015 8:00 AM EDT [place] [address] Darlyn Escalante MD [facility] DR GASTROENTER[place] [address] VIDEO CAPSULE ENDOSCOPY (WRVU 2.24) Social History Tobacco Use Types Packs/Day Years [...] End Date fluticasone propionate (Flonase) 50 mcg/actuation [place], Suspension Daily 07/12/2012 aspirin 81 mg Tablet, Delayed Release (E.C.) [...] Tablet(s), Vag, Every other day 03/16/2006 12/10/2020 ibuprofen (ADVIL;MOTRIN) 600 mg tablet 600mg, PO, 2-3 times a day 03/16/2006 09/12/2016 metFORMIN (GLUCOPHAGE) 1,000 mg tablet 1000MG = 1 Tablet(s), PO, Twice daily 03/16/2006 08/13/2020 documented as of this encounter Miscellaneous Notes * Op Note - Darlyn Escalante MD - 09/25/2015 8:28 AM EDT [facility] Operative Note Patient Name: Patricia Liu : [id number] MR#: [id number] Case Date: 09/24/2015 Surgeon: Surgeon(s) and Role: * Darlyn Escalante MD - Primary Preoperative diagnosis: FE Anemia Postoperative diagnosis: * No post-op diagnosis entered * Procedure(s): VIDEO CAPSULE ENDOSCOPY Please see the Provation procedure report in the Procedures tab in eDH. documented in this encounter Plan of Treatment Not on file documented as of this encounter Procedures Procedure Name Priority Date/Time Associated Diagnosis Comments VIDEO CAPSULE ENDOSCOPY (WRVU 2.24) 09/24/2015 8:00 AM EDT FE Anemia VIDEO CAPSULE ENDOSCOPY Routine 09/24/2015 7:41 AM EDT documented in this encounter Results * VIDEO CAPSULE ENDOSCOPY (09/24/2015 7:41 AM EDT) [facility] VIDEO CAPSULE ENDOSCOPY [facility] Endoscopy ___ Procedure Date: 09/24/2015 7:41 AM ? Patient Name: Patricia Liu ? N: [id number] ? Date of : 1940 ? Age: 74 ? Order #: [id number] ? Instrument Name: ? ___ Procedure: ? Video capsule endoscopy Indications: ? Iron deficiency anemia Providers: ? Julian Escalante MD Referring : ?Roxy Mehta MD Medicines: ? None Complications: ? No immediate complications. ___ Procedure: ? Pre-Anesthesia Assessment: ? - After reviewing the risks and ? benefits, the patient was deemed in ? satisfactory condition to undergo the ? procedure. ? The SensorArray was applied to the ? patient's abdomen with adhesive pads ? and connected to the DataRecorder ? around the waist. The DataRecorder ? was checked to ensure green light was ? flashing. The patient was then ? instructed to ingest the M2A capsule ? and provided a glass of water. This ? was accomplished without difficulty. ? The patient was then given ? instructions for eating and drinking ? and was instructed to periodically ? monitor the DataRecorder throughout ? the day to insure proper transmission. ? Approximately eight hours later the ? patient returned for removal of the ? SensorArray. ? Findings: ? Images of the esophagus, stomach and small bowel were ? obtained from the swallowed capsule and reviewed. ? The capsule passed into the duodenum in 34-min and ? into the cecum in 4-hr 35-min for a total small bowel ? transit time of 4-hr and 1-min. ? A single small and superficial non-bleeding localized ? erosion was found in the gastric antrum. There were ? no stigmata of recent bleeding. ? Few incidental scattered lymphangiectasia within the ? proximal small bowel. ? Impression: ?- Source of chronic blood losses to ? explain iron deficiency was not seen ? on this exam. ? - Incidental small gastric erosion ? and few scattered lymphangiectasia in ? the proximal small bowel. Recommendation: ?Return to referring provider. ? _ L. Ovi Escalante MD 11/08/2015 7:52:37 AM Number of Addenda: 0 Note Initiated On: 11/08/2015 7:41 AM PROVATION 09/24/2015 7:41 AM EDT Roxy Mehta MD GENERAL SURGICAL ORD ERABLES PROVATION documented in this encounter Visit Diagnoses Not on filedocumented in this encounter Care Teams Wardrobe Specialty Worker Relationship Specialty Start Date End Date Roxy Mehta MD [address] [place] [address] PCP - General 02/23/10 documented as of this encounter
--- OUTSIDE RECORDS SUMMARY | 2023-10-19 11:11 | XMS_ITS | Encounter Summary ---
Author Organization [facility] [place] [address] Care Team Providers Care Counter Intelligence Name Role Phone Roxy Mehta MD Primary Care Provider [phone] Encounter Details Date Type Department Care Team (Latest Contact Info) Description 02/23/2015 11:17 AM EST - 02/23/2015 11:59 PM EST Hospital Encounter Hematology [place] [address] Thrombocytosis; Leukocytosis Discharge Disposition: Home Social History Tobacco Use [...] End Date fluticasone propionate (Flonase) 50 mcg/actuation [place], Suspension Daily 07/12/2012 DULoxetine (CYMBALTA) 30 mg Capsule, Delayed Release(E.C.)Indications: Thrombocytosis Take 30 mg by mouth daily. 08/13/2020 omeprazole (PRILOSEC) 40 mg Capsule, Delayed Release(E.C.)Indications: Thrombocytosis Take 20 mg by mouth 2 times daily. 12/10/2020 lisinopril (PRINIVIL;ZESTRIL) 10 mg TabletIndications:Thrombo cytosis Take 10 mg by mouth daily. 08/13/2020 [...] Procedure Name Priority Date/Time Associated Diagnosis Comments JAK2 Routine 02/23/2015 11:30 AM EST Thrombocytosis Leukocytosis JAK2 Routine 02/23/2015 11:30 AM EST Thrombocytosis Leukocytosis HEMOGRAM Routine 02/23/2015 11:30 AM EST Thrombocytosis Leukocytosis DIFFERENTIAL, AUTOMATED Routine 02/23/2015 11:30 AM EST Thrombocytosis Leukocytosis IRON AND TIBC Routine 02/23/2015 11:30 AM EST Thrombocytosis Leukocytosis CBC (WITH DIFF) Routine 02/23/2015 11:30 AM EST Thrombocytosis Leukocytosis FERRITIN Routine 02/23/2015 11:30 AM EST Thrombocytosis Leukocytosis COMPREHENSIVE METABOLIC PANEL (NON-FASTING) Routine 02/23/2015 11:30 AM EST Thrombocytosis Leukocytosis documented in this encounter Results * JAK2 (02/23/2015 11:30 AM EST) JAK2 Report Specimen Type: peripheral blood Indication for Study: progressive thrombocytosis. Question ET. Analysis: ??Examination of DNA extracted from peripheral blood leukocytes for the V617F somatic mutation in the Janus Kinase 2 (JAK2) gene. DNA is analyzed using primers and probes specific to the wild type and mutant sequence of the gene region of interest (V617F,)followed by SNP detection on an [employer] Prism 7500 Sequence Detection System. Results: ??Negative for the V617F mutation (see comment). Comments: ??This genotyping result, negative for the V617F mutation, indicates that this patient does not have the mutation associated with polycythemia vera. However, it does not completely exclude the possibility of this diagnosis in this patient. Recent literature indicates that this mutation is present in greater than 80% of polycythemia vera patients and in approximately 40% of essential thrombocythemia and idiopathic myelofibrosis patients. Therefore, it is possible to have one of these myeloproliferatiove disorders and not have the described mutation Methods: ??Genomic DNA was extracted from the submitted specimen using the [employer] [place] Bio[employer]ot. The real time PCR was performed on the BRAYDEN 7500 system using fluorescently labeled probes for allelic discrimination References: ??Madan et al. Lancet 2005;365:6446-4860; Jose et al. Nature 2005;1-5; Dior et al. Lancet 2005;366:1830-6520; Solis et al. Blood 2005;106:0869-5357. CERNER MILLENNIUM Comment: [VERIFIED DATE]03.03.15 Verified By:Zeyad Hernandez PhD, Molecular Pathologist (Electronic Signature) Blood specimen (specimen) 02/23/2015 11:30 AM EST 02/23/2015 3:20 PM EST Narrative Resulting Agency Comment Spec In Lab Chris Jacobson MD HEMATOLOGY ORDERABLE S EDNA CORADOENNIUM * Differential, Automated (02/23/2015 11:30 AM EST) Neutrophils % 56.5 % CERNER MILLENNIUM Neutr Abs (ANC) 5.03 1.50 - 6.30 x10(3)/mcL CERNER MILLENNIUM Lymphocytes % 32.4 % CERNER MILLENNIUM Lymphocytes Abs 2.9 1.0 - 3.6 x10(3)/mcL CERNER MILLENNIUM Monocytes % 8.0 % CERNER MILLENNIUM Monocyte Abs 0.7 0.2 - 1.0 x10(3)/mcL CERNER MILLENNIUM Eosinophils % 2.2 % CERNER MILLENNIUM Eosinophils Abs 0.2 0.0 - 0.5 x10(3)/mcL CERNER MILLENNIUM Basophils % 0.7 % CERNER MILLENNIUM Basophils Abs 0.1 0.0 - 0.2 x10(3)/mcL CERNER MILLENNIUM Immature Gran % 0.20 % CERN ER MILLENNIUM Comment: Immature granulocytes(IG's)percentage and absolute count will include metamyelocytes, myelocytes, and promyelocytes. Blood smears from CBCs yielding IG's will be scanned manually for concordance. If this scan disagrees with the automated IG or if promyelocytes are noted, a manual differential will be performed. Cierra Gran Abs 0.02 0.00 - 0.05 x10(3)/mcL CERNER MILLENNIUM Blood specimen (specimen) 02/23/2015 11:30 AM EST 02/23/2015 11:40 AM EST Narrative Resulting Agency Comment Spec In Lab Chris Jacobson MD HEMATOLOGY ORDERABLE S CERNER MILLENNIUM * (ABNORMAL) Hemogram (02/23/2015 11:30 AM EST) WBC 8.9 4.0 - 10.0 x10(3)/mcL CERNER MILLENNIUM RBC 4.36 3.93 - 5.22 x10(6)/mcL CERNER MILLENNIUM Hemoglobin 12.2 11.2 - 15.7 gm/dL CERNER MILLENNIUM Hematocrit 37.6 34.0 - 45.0 % CERNER MILLENNIUM MCV 86.2 79.0 - 94.0 fL CERNER MILLENNIUM MCH 28.0 26.6 - 32.2 pg CERNER MILLENNIUM MCHC 32.4 32.0 - 36.5 gm/dL CERNER MILLENNIUM Platelets 559(H) 145 - 370 x10(3)/mcL CERNER MILLENNIUM RDWSD 43.4 35.0 - 46.0 fL CERNER MILLENNIUM RDWCV 14.0 10.9 - 14.4 % CERNER MILLENNIUM MPV 9.0 9.0 - 12.0 fL CERNER MILLENNIUM Blood specimen (specimen) 02/23/2015 11:30 AM EST 02/23/2015 11:40 AM EST Narrative Resulting Agency Comment Spec In Lab Chris Jacobson MD HEMATOLOGY ORDERABLE S Performing Organization Address [facility] de Phone Number [facility] * (ABNORMAL) Ferritin (02/23/2015 11:30 AM EST) Ferritin 11(L) 30 - 400 ng/mL CERNER MILLENNIUM Comment: Pediatric reference ranges not verified at [facility], interpret with caution. Reference ranges for females greater than 50 years of age approach values for men, i.e., 30-400 ng/mL. Blood specimen (specimen) 02/23/2015 11:30 AM EST 02/23/2015 11:40 AM EST Narrative Resulting Agency Comment Spec In Lab Chris Jacobson MD CHEMISTRY ORDERABLES Performing Organization Address [facility] de Phone Number CERNER MILLENNIUM * (ABNORMAL) Iron and TIBC (02/23/2015 11:30 AM EST) Iron 46 30 - 150 mcg/dL CERNER MILLENNIUM TIBC 449 250 - 450 mcg/dL CERNER MILLENNIUM Iron Saturation 10(L) 20 - 50 % CERN ER MILLENNIUM Blood specimen (specimen) 02/23/2015 11:30 AM EST 02/23/2015 11:40 AM EST Narrative Resulting Agency Comment Spec In Lab Chris Jacobson MD CHEMISTRY ORDERABLES Performing Organization Address [facility] de Phone Number CERNER MILLENNIUM * (ABNORMAL) Comprehensive metabolic panel (non-fasting) (02/23/2015 11:30 AM EST) Glucose Lvl 111 65 - 199 mg/dL CERNER MILLENNIUM Comment:Diabetes: >=200 mg/d L plus symptoms BUN 21(H) 8 - 18 mg/dL CERNER MILLENNIUM Creatinine 0.80 0.70 - 1.20 mg/dL CERNER MILLENNIUM Comment: Please note that the pediatric reference intervals supplied above were not validated at [facility]. Results from pediatric patients should be interpreted in conjunction to the patient's age, height and muscle mass. Sodium 138 135 - 145 mmol/L CERNER MILLENNIUM Potassium 4.1 3.5 - 5.0 mmol/L CERNER MILLENNIUM Comment: Please note: ??Patients with WBC >100,000 may have falsely elevated Potassium levels. ??For accurate Potassium quantification in these patients send serum separator tube (gold top) for subsequent determinations. ??Contact the Clinical Chemistry Laboratory if there are any questions. Chloride 99 98 - 107 mmol/L CERNER MILLENNIUM CO2 26 22 - 31 mmol/L CERNER MILLENNIUM Anion Gap 13 5 - 15 mmol/L CERNER MILLENNIUM Calcium 8.9 8.5 - 10.5 mg/dL CERNER MILLENNIUM Total Protein 7.1 6.1 - 8.0 gm/dL CERNER MILLENNIUM Albumin 4.3 3.2 - 5.2 gm/dL CERNER MILLENNIUM AST 16 0 - 30 unit/L CERNER MILLENNIUM ALT 14 0 - 30 unit/L CERNER MILLENNIUM Alk Phos 104 40 - 104 unit/L CERNER MILLENNIUM Total Bilirubin <0.2(L) 0.2 - 1.3 mg/dL CERNER MILLENNIUM Comment:result rechecked-NM Bili, Direct <0.1 0.0 - 0.3 mg/dL CERNER MILLENNIUM Estimated GFR >60 >=60 CERNER MILLENNIUM Comment: This estimated GFR (eGFR) value was [...] the following links into your internet browser. [email or web address] Blood specimen (specimen) 02/23/2015 11:30 AM EST 02/23/2015 11:40 AM EST Narrative Resulting Agency Comment Spec In Lab Chris Jacobson MD CHEMISTRY ORDERABLES [facility] documented in this encounter Visit Diagnoses Diagnosis Thrombocytosis Essential thrombocythemia Leukocytosis Leukocytosis, unspecified documented in this encounter Care Teams Counter Intelligence Relationship Specialty Start Date End Date Roxy Mehta MD [address] [place] [address] PCP - General 02/23/10 documented as of this encounter
--- OUTSIDE RECORDS SUMMARY | 2023-10-19 11:11 | XMS_ITS | Encounter Summary ---
Author Organization [facility] Address [facility] [place] [place] [address] Care Team Providers Care Desk Clerk Name Role Phone Roxy Mehta MD Primary Care Provider [phone] Encounter Details Date Type Department Care Team (Late st Contact Info) Description 06/24/2008 [place] [address] Kimberley Coffman MD [facility] [place] [address] Social History Tobacco Use Types Packs/Day Years Used Date Smoking Tobacco: Never Assessed Sex and Gender Information Value Date Recorded Sex Assigned at Female 07/30/2020 12:05 PM EDT Gender Identity Female 07/30/2020 12:05 PM EDT Sexual Orientation Straight 07/30/2020 12 :05 PM EDT documented as of this encounter Plan of Treatment Not on file documented as of this encounter Procedures Procedure Name Priority Date/Time Associated Diagnosis Comments SURGICAL PATHOLOGY REPORT Routine 06/24/2008 10:13 AM EDT documented in this encounter Results * Surgical Pathology Report (06/24/2008 10:13 AM EDT) Surgical Pathology Report [id number] ? Location: OPW The signing pathologist has (i) examined the relevant preparation(s) for the specimen(s) and (ii) rendered or confirmed the diagnosis(es). . ?Pathology Surgical Pathology Final Report Clinical Information Specimen Submitted: A - Left breast Clinical History: New calcifications Clinical Diagnosis: FCD DCIS Report to: Roxy Mehta MD [facility] [address] [place], [place] ??[address] Gross Description Specimen: ?Received in two containers. 1 - Labeled/Fixative: ??Left breast with calcifications, formalin. Qty/Size/Weight: ? Single yellow-white needle core biopsy, 1.6 cm. ??The ? accompanying radiograph shows a single irregular ? cluster of coarse calcifications. Sections/Processi ng: ?? Submitted in (A1). 2 - Labeled/Fixative: ??Left breast no calcifications, formalin. Qty/Size/Weight: ? Six yellow-pink needle core biopsies, varying from ? 0.7 cm to 2.5 cm. Sections/Processi ng: ?? Submitted in (A2-A3). ??(T3) ??aje/SHB Microscopic Description Slides reviewed, microscopic description not recorded. Diagnosis Needle biopsies: ?Left breast. Diagnosis: ?Fibrocystic disease with cysts Microcalcificatio ns: ??Identified in cyst CR-0 06/25/08 VAM 06/25/08 Verified by: ? Kaveh Silveira MD ?Pathologist ?(Electronic Signature) The attending pathologist whose signature appears on this report has reviewed all diagnostic slides and has edited the gross and/or microscopic portion of the report in rendering the final pathologic diagnosis. [facility] 06/24/2008 10:1 3 AM EDT Kimberley Rose MD PATHOLOG Y/CYTOLOGY ORDERABLES [facility] documented in this encounter Visit Diagnoses Not on filedocumented in this encounter Care Teams Desk Clerk Relationship Specialty Start Date End Date Roxy Mehta MD [address] [place] [address] PCP - General 02/23/10 documented as of this encounter
--- OUTSIDE RECORDS SUMMARY | 2023-10-19 11:11 | XMS_ITS | Encounter Summary ---
Author [facility] [place] [address] Care Team Providers Care Paper Machine Back Tender Name Role Phone Roxy Mehta MD Primary Care Provider [phone] Encounter Details Date Type Department Care Team (Late st Contact Info) Description 03/26/2015 Orders Only [place]ematology [place] [address] Argelia Teresa MD [facility] HEMATOLGY/[place] [address] Social History Tobacco Use Types Packs/Day Years [...] on filedocumented in this encounter Care Teams Paper Machine Back Tender Relationship Specialty Start Date End Date Roxy Mehta MD [address] [place], [place] [id number] PCP - General 02/23/10 documented as of this encounter
--- OUTSIDE RECORDS SUMMARY | 2023-10-19 11:11 | XMS_ITS | Encounter Summary ---
Author Organization [facility] [place] [address] Care Team Providers Care Water Quality Technician Name Role Phone Roxy Mehta MD Primary Care Provider [phone] Reason for Visit * Reason Comments Advice Only * Consultation (Routine) - Closed Specialty Diagnoses / Procedures Referred By Contoziel t Referred To Contact Hematology and Oncology Diagnoses elevated platelet count Roxy Mehta MD [address] [place] [address] [facility] [address] [place] [address] Referral ID Status Reason Start Date Expiration Date V isits Requested Visits Authorized [id number] Closed Consult, Test & Treat Connection Center 02/05/2015 02/05/2016 1 1 Encounter Details Date Type Department Care Team (Late st Contact Info) Description 02/23/2015 9:45 AM EST Office Visit Hematology [place] [address] Chris Jacobson MD [facility] DR HEMATOLOGY/[place] [address] Samantha Pardo, CHELI [facility] HEMATOLOGY/[place] [address] Argelia Feldman MD [facility] HEMATOLGY/[place] [address] Thrombocytosis Social History Tobacco Use Types Packs/Day Years Used Date Smoking Tobacco: Former Sex and Gender Information Value Date Recorded Sex Assigned at Female 07/30/2020 12:05 PM EDT Gender Identity Female 07/30/2020 12:05 PM EDT Sexual Orientation Straight 07/30/2020 12 :05 PM EDT documented as of this encounter Last Filed Vital Signs Vital Sign Reading Time Taken Comments Blood Pressure 143/84 02/23/2015 9:46 AM EST Pulse 97 02/23/2015 9:46 AM EST Temperature 36.4 ??C (97.5 ??F) 02/23/2015 9:46 AM ES T Respiratory Rate 18 02/23/2015 9:46 AM EST Oxygen Saturation 98% 02/23/2015 9:46 AM EST Inhaled Oxygen Concentration - - Weight 74.7 kg (164 lb 10.9 oz) 02/23/2015 9:46 AM EST Height - - Body Mass Index - - documented in this encounter Progress Notes * Chris Jacobson MD - 03/03/2015 6:25 PM EST I saw this patient with Dr Feldman. I agree with the details of History and Physical Exam as documented in the above note. I was present for the critical portions of the history, exam and discussion of our recommendations. Please see above note for full details. * Argelia Feldman - 02/23/2015 9:59 AM EST Images from the original note were not included. Hematology Clinic Outpatient Initial Evaluation Reason for referral: Mrs Liu was referred by Dr. ROXY MEHTA MD for evaluation of thrombocytosis and transient leukocytosis. I have reviewed available records and interviewed/examined the patient. PEDRO Gomez reports that she remembers plt count being [...] and her wt is back to baseline. She denies night sweats, fever, chills. Her energy is lower than recent baseline but she cannot point to limitations related to fatigue or SOB etc. Reviewed of her work up shows Labs on 01/27/15 WBC 7.6 Hn 12.9 MCV 87.1 Plt 605 (labs dating back to show plt 487 -> -> 557 by ). She had elevated WBC on one occasion @ 12.4 - during work up for transaminitis? as above but diff has been relatively unremarkable). CMP was unremarkable with Cr 0.8 TSH 2.7 RF neg. She reportedly had and imaging in the last fewmonths. Review of Systems Constitutional: No fevers, chills, sweats, +mild fatigue Skin: No rash or other lesions HEENT: Denies sore throat, congestion Cardiovascular: No chest pain, palpitations, REED, or orthopnea Respiratory: Denies SOB, cough, wheezing Gastrointestinal: Denies n/v, abd pain, diarrhea/melena Genitourinary: Denies dysuria, frequency, hematuria Musculoskeletal: Chronic bilat knee pain L>R Neuro: Denies numbness, tingling orweakness Psychiatric: +depression by hx, denies current sx Remainder of the ROS was negative Past Medical History 1. Type 2 Diabetes 2. GERD 3. Hypertension 4. Arthritis affecting knees - scheduled for L TKA in Apr 2015 Medications 1. Metformin 1000 mg BID 2. Duloxetine 30 mg QD 3. Lisinopril 10 mg QD 4. Omeprazole 40 mg QD 5. Fluticasone nasal spray and PRN Albuterol res 6. Calcium and VitD Allergies Itching with doxycycline Family History M: d @83 Hx of breast ca. heart disease, diabetes F: d @81 heart disease, CVA One sister who well (HTN) No Hx of hematologic malignancy Social History Retired, Quit tobacco 11 yrs ago Physical Exam Physical Examination Vitals: Temp: [36.4 ??C (97.5 ??F)] Heart Rate: [97] BP: (143)/(84) Resp: [18] SpO2: [98 %] General: Well appearing, in NAD Head: NCAT Eyes: anicteric, No conjunctival injection ENT: no OP lesions/exudates Neck: Supple, full ROM Heme: no cervical or axillary LAD or masses CV: RRR, no murmur Pulm: Non-labored, CTAB GI: ND, NABS, soft, minimal diffuse tenderness to deep palpation, no hepatosplenomegaly Skin: No rash noted Neurological: alert and oriented x 3, speech fluent, PERRL, EOMI Psychiatric: normal mood and affect Assessment and Recommendations 74 y.o. woman with thrombocytosis. She only had isolated leukocytosis likely related to acute viralhepatitis. Highest concern is for MPN specifically essential thrombocytosis. Early iron deficiency would not be supported by chronicity of her finding in the setting of normal Hb but this would be imp ortant to rule out. Similarly reactive causes etc would not fit timeline. I recommend checking iron, molecular studies for BCR-ABL and Jak2 followed by doing bone marrow either as second round diagnostic test or confirmatory/risk stratifying test. I reviewed with her risk of VTE with MPN for which I recommend ASA daily. I reiterated she would need to take PPI daily (preferrably 1st thing in AM) for GERD. In light of this, We may need to postpone her upcoming until she has a firm diagnosis and there is a plan surrounding VTE risk at surgery. She understand and agrees with this. Plans -REcheck CBC, CMP -Check Fe/Ferritin -peripheral blood Jak2 and BCR-ABL (FISH) -Defer BMBx pending above -Daily aspirin for VTE risk -See her in clinic in 2-3 weeks pending above work-up and potentially BMBx - Left message on her PCP's phone at the time this visit She knows to call in the interim with questions/concerns. ARGELIA FELDMAN MD Hematology Fellow CC. ROXY MEHTA MD ++++++++++++++++++++++++++++++++++++++++++++++++++++++++++++++++++++++++++++++++ + Addendum: Ferritin returned 11 with low iron saturation suggestive likely GI blood loss. Concern for Gi malignancy enough that would re-scope despite recent colo. Her plt count is likely reactive to the Fe deficiency but will await molecular studies. Dr Mehta also return call and we reviewed above. She will coordinate getting colo on the patient. We will f/u on molecular studies and schedule for BMBx based on above findings. Full labs Recent Results (from the past 24 hour(s)) Comprehensive metabolic panel (non-fasting) Result Value Ref Range Glucose Lvl 111 65 - 199 mg/dL BUN 21 (H) 8 - 18 mg/dL Creatinine 0.80 0.70 - 1.20 mg/dL Sodium 138 135 - 145 mmol/L Potassium 4.1 3.5 - 5.0 mmol/L Chloride 99 98 - 107 mmol/L CO2 26 22 - 31 mmol/L Anion Gap 13 5 - 15 mmol/L Calcium 8.9 8.5 - 10.5 mg/dL Total Protein 7.1 6.1 - 8.0 gm/dL Albumin 4.3 3.2 - 5.2 gm/dL AST 16 0 - 30 unit/L ALT 14 0 - 30 unit/L Alk Phos 104 40 - 104 unit/L Total Bilirubin <0.2 (L) 0.2 - 1.3 mg/dL Bili, Direct <0.1 0.0 - 0.3 mg/dL Estimated GFR >60 >=60 Iron and TIBC Result Value Ref Range Iron 46 30 - 150 mcg/dL TIBC 449 250 - 450 mcg/dL Iron Saturation 10 (L) 20 - 50 % Ferritin Result Value Ref Range Ferritin 11 (L) 30 - 400 ng/mL Hemogram Result Value Ref Range WBC 8.9 4.0 - 10.0 x10(3)/mcL RBC 4.36 3.93 - 5.22 x10(6)/mcL Hemoglobin 12.2 11.2 - 15.7 gm/dL Hematocrit 37.6 34.0 - 45.0 % MCV 86.2 79.0 - 94.0 fL MCH 28.0 26.6 - 32.2 pg MCHC 32.4 32.0 - 36.5 gm/dL Platelets 559 (H) 145 - 370 x10(3)/mcL RDWSD 43.4 35.0 - 46.0 fL RDWCV 14.0 10.9 - 14.4 % MPV 9.0 9.0 - 12.0 fL Differential, Automated Result Value Ref Range Neutrophils % 56.5 % Neutr Abs (ANC) 5.03 1.50 - 6.30 x10(3)/mcL Lymphocytes % 32.4 % Lymphocytes Abs 2.9 1.0 - 3.6 x10(3)/mcL Monocytes % 8.0 % Monocyte Abs 0.7 0.2 - 1.0 x10(3)/mcL Eosinophils % 2.2 % Eosinophils Abs 0.2 0.0 - 0.5 x10(3)/mcL Basophils % 0.7 % Basophils Abs 0.1 0.0 - 0.2 x10(3)/mcL Immature Gran % 0.20 % Cierra Gran Abs 0.02 0.00 - 0.05 x10(3)/mcL Miscellaneous Lab request Result Value Ref Range Misc Lab Result Request received in lab. ARGELIA FELDMAN MD Hematology Fellow documented in this encounter Plan of Treatment Not on file documented as of this encounter Procedures Procedure Name Priority Date/Time Associated Diagnosis Comments CHROMO REPORT ACQUIRED Routine 12:20 PM EST MISCELLANEOUS LAB REQUEST Routine 02/23/2015 11:30 AM EST Thrombocytosis documented in this encounter Results * chromo report acquired (02/23/2015 12:20 PM EST) Pathologist [facility] Acquired Report Final Report Specimen Type: Blood Specimen Condition: 7.5ml, no clot Collection Date/Time: 02/23/2015 11:27 Received Date/Time: 02/23/2015 12:20 Indication: Thrombocytosis ---Results--- FISH Negative for BCR-ABL1 fusion gene. ---Karyotype--- nuc starr(ABL1,BCR)x2[22 0] ---Preparation--- Culture Type: 24 hour short term culture Days in Culture: 1 Banding Method: N/A Banding Level: N/A FISH Method: Interphase FISH ---Analysis--- Cultures Analyzed: N/A Metaphase Cells Counted: N/A Metaphase Cells Analyzed: ??N/A Metaphase Cells Karyotyped: N/A ---Interpretation- -- Interphase FISH analysis using a dual-color, dual-fusion BCR-ABL1 fusion probe associated with t(9;22) ([employer] revealed 0% of the cells with a signal pattern consistent with the BCR-ABL1 fusion gene in 220 cells. This was within the normal limits (<1.0%). Thus, there was no evidence of the BCR-ABL1 fusion. ---Recommendation- -- Correlation with clinical and pathological studies is suggested. ---Disclaimer--- The FISH test was developed and its performance characteristics were determined by the [facility] ([facility]) Cytogenetics Laboratory as required by CLIA? 88 regulations. It has not been cleared or approved for specific uses by the U.S. Food and Drug Administration (FDA). The FDA has determined that such clearance or approve is not necessary. This test is used for clinical purposes. It should not be regarded as investigational or for research. Pursuant to the requirements of CLIA? 88, this laboratory has established and verified the test? s accuracy and precision. The [facility] Cytogenetics Laboratory is certified under the CLIA? 88 as qualified to perform high complexity clinical laboratory testing. 11.26.15 (Electronic Signature) Verified By: Ward SALCIDO, Ph.D., Liming Director, Cytogenetics [facility] 02/23/2015 12:2 0 PM EST Argelia Feldman MD HEMATOLOGY ORDERABLE S [facility] * Miscellaneous Lab request (02/23/2015 11:30 AM EST) Pathologist [facility] Lab Result Request received in lab. [facility] Blood specimen (specimen) 02/23/2015 11:30 AM EST 02/23/2015 11:42 AM EST Narrative Resulting Agency Comment Spec In Lab Chris Jacobson MD HEMATOLOGY ORDERABLE S Performing Organization Address [facility] Co de Phone Number [facility] * (ABNORMAL) Ferritin (02/23/2015 11:30 AM EST) Ferritin 11(L) 30 - 400 ng/mL [facility] Comment: Pediatric reference ranges not verified at [facility], interpret with caution. Reference ranges for females greater than 50 years of age approach values for men, i.e., 30-400 ng/mL. Blood specimen (specimen) 02/23/2015 11:30 AM EST 02/23/2015 11:40 AM EST Narrative Resulting Agency Comment Spec In Lab Chris Jacobson MD CHEMISTRY ORDERABLES Performing Organization Address [facility] Co de Phone Number [facility] * (ABNORMAL) Iron and TIBC (02/23/2015 11:30 AM EST) Iron 46 30 - 150 mcg/dL [facility] MILLENNIUM TIBC 449 250 - 450 mcg/dL [facility] Iron Saturation 10(L) 20 - 50 % [facility] MILLENNIUM Blood specimen (specimen) 02/23/2015 11:30 AM EST 02/23/2015 11:40 AM EST Narrative Resulting Agency Comment Spec In Lab Chris Jacobson MD CHEMISTRY ORDERABLES Performing Organization Address [facility] Co de Phone Number [facility] * (ABNORMAL) Comprehensive metabolic panel (non-fasting) (02/23/2015 11:30 AM EST) Glucose Lvl 111 65 - 199 mg/dL [facility] Comment:Diabetes: >=200 mg/d L plus symptoms BUN 21(H) 8 - 18 mg/dL [facility] Creatinine 0.80 0.70 - 1.20 mg/dL [facility] Comment: Please note that the pediatric reference [...] the following links into your internet browser. [email or web address] Blood specimen (specimen) 02/23/2015 11:30 AM EST 02/23/2015 11:40 AM EST Narrative Resulting Agency Comment Spec In Lab Chris Jacobson MD CHEMISTRY ORDERABLES Performing Organization Address City/State/[facility] Co de Phone Number [facility] documented in this encounter Visit Diagnoses Diagnosis Thrombocytosis Essential thrombocythemia documented in this encounter Care Teams Water Quality Technician Relationship Specialty Start Date End Date Roxy Mehta MD [address] [place] [address] PCP - General 02/23/10 documented as of this encounter
--- OUTSIDE RECORDS SUMMARY | 2023-10-19 11:11 | XMS_ITS | Encounter Summary ---
Author Organization [facility] [place] [address] Care Team Providers Care Supervisor Newspaper Deliveries Name Role Phone Roxy Mehta MD Primary Care Provider [phone] Reason for Visit * Auth/Cert Specialty Diagnoses / Procedures Referred By Kishore t Referred To Contact Diagnoses FE Anemia Procedures PRG GI TRACT IMAGING, INTRALUMINAL, ESOPHAGUS THROUGH ILEUM, W INTERP & REPORT VIDEO CAPSULE ENDOSCOPY Referral ID Status Reason Start Date Expiration Date Visits Re quested Visits Authorized [id number] 1 1 Encounter Details Date Type Department Care Team (Latest Contact Info) Description 09/24/2015 7:30 AM EDT - 09/24/2015 4:03 PM EDT Hospital Encounter [place] [address] Darlyn Escalante MD [facility] [place] [address] Discharge Disposition: Home Social History Tobacco Use [...] End Date fluticasone propionate (Flonase) 50 mcg/actuation [place], Suspension Daily 07/12/2012 aspirin 81 mg Tablet, [...] Escalante MD - 09/25/2015 8:28 AM EDT [facility] Operative Note Patient Name: Patricia Liu : [id number] MR#: [id number] Case Date: 09/24/2015 Surgeon: Surgeon(s) and Role: [...] VIDEO CAPSULE ENDOSCOPY (09/24/2015 7:41 AM EDT) VIDEO CAPSULE ENDOSCOPY [facility] Endoscopy ___ Procedure Date: 09/24/2015 7:41 AM ? Patient Name: Patricia Liu ? N: [id number] ? Date of : 1940 ? Age: 74 ? Order #: [id number] ? Instrument Name: ? ___ Procedure: ? Video capsule endoscopy Indications: ? Iron deficiency anemia Providers: ? Julian Escalante MD Referring MD: ?Roxy Mehta MD Medicines: ? None Complications: [...] on filedocumented in this encounter Care Teams Supervisor Newspaper Deliveries Relationship Specialty Start Date End Date Roxy Mehta MD [address] [place] [address] PCP - General 02/23/10 documented as of this encounter
--- OUTSIDE RECORDS SUMMARY | 2023-10-19 11:11 | XMS_ITS | Encounter Summary ---
Author Organization [facility] Address [facility] [place] [address] Care Team Providers Care Transit Department Clerk Name Role Phone Roxy Mehta MD Primary Care Provider [phone] Encounter Details Date Type Department Care Team (Late st Contact Info) Description 03/06/2015 Orders Only Hematology [place] [address] Argelia Teresa MD [facility] HEMATOLGY/[place] [address] Social History Tobacco Use Types Packs/Day Years Used Date Smoking Tobacco: Former Sex and Gender Information Value Date Recorded Sex Assigned at Female 07/30/2020 12:05 PM EDT Gender Identity Female 07/30/2020 12:05 PM EDT Sexual Orientation Straight 07/30/2020 12 :05 PM EDT documented as of this encounter Plan of Treatment Scheduled Orders Name Type Priority Associated Diagnoses Orde r Schedule ([facility])BONE MARROW ASP PERFORMED W/BX THRU BX INCISION Procedures Routine One Time f or 1 Occurrences starting 03/06/2015 until 03/06/2015 ([facility]) UNILAT BONE MARROW BIOSPY Procedures Routine One Time for 1 Occurrences starting 03/06/2015 until 03/06/2015 documented as of this encounter Visit Diagnoses Not on filedocumented in this encounter Care Teams Transit Department Clerk Relationship Specialty Start Date End Date Roxy Mehta MD [address] [place] [address] PCP - General 02/23/10 documented as of this encounter
--- OUTSIDE RECORDS SUMMARY | 2023-10-19 11:11 | XMS_ITS | Encounter Summary ---
Author Organization [facility] Address [facility] [place] [address] Care Team Providers Care Underground Foreman Name Role Phone Willem Mehta MD Primary Care Provider [phone] Encounter Details Date Type Department Care Team (Late st Contact Info) Description 06/18/2015 Telephone Hematology [place] [address] Argelia Teresa MD [facility] HEMATOLGY/[place] [address] Social History Tobacco Use Types Packs/Day Years Used Date Smoking Tobacco: Former Sex and Gender Information Value Date Recorded Sex Assigned at Female 07/30/2020 12:05 PM EDT Gender Identity Female 07/30/2020 12:05 PM EDT Sexual Orientation Straight 07/30/2020 12 :05 PM EDT documented as of this encounter Miscellaneous Notes * Telephone Encounter - Argelia Teresa - 06/18/2015 3:59 PM EDT Received message from WILLEM MEHTA MD that patient had normal [place] and EGD. She had plt elevated to 600 in the setting of ferritin of 11 and bone marrow biopsy that is normal with the exception of absent iron stores. I spoke with Patricia and reviewed above. She still likely has (or had) GI source of bleed as this is the only plausible explanation for her iron dificiency in the absence of another source. We discussed options to work this up and she prefers a conservative approach. She started PO iron two weeks ago. I would recommend the following 1. If tolerated, at least BID dosing of iron x 2 months 2. recheck her ferritin and CBC at that time (incidentally she has surgery planned in early August so I would do this prior to surgery so that the elevated plt count is not an issue) 3. Stop iron after the two months 4. Recheck her iron studies and CBC about 6 months from today to evaluate for ongoing bleeding 5. If iron studies are low again - would recommend further (GI) work up including capsule endoscopy. FOB test may also be useful but this may not bulk picker intermittent bleeding. We will see her in follow up as needed documented in this encounter Plan of Treatment Not on file documented as of this encounter Visit Diagnoses Not on filedocumented in this encounter Care Teams Underground Foreman Relationship Specialty Start Date End Date Willem Mehta MD [address] [place] [address] PCP - General 02/23/10 documented as of this encounter
--- OUTSIDE RECORDS SUMMARY | 2023-10-19 11:11 | XMS_ITS | Encounter Summary ---
[place] [address] Care Team Providers Care Gyroscopic Instrument Mechanic Name Role Phone Roxy Mehta MD Primary Care Provider [phone] Reason for Visit * Auth/Cert Specialty Diagnoses / Procedures Referred By Kishore t Referred To Contact Diagnoses Thrombocythemia Procedures PRO BONE MARROW ASPIRATION W/BX THROUGH SAME INCISION/SITE PRO BONE MARROW BX, NEEDLE/TROCAR ([facility]) BONE MARROW ASP PERFORMED W/BX THRU BX INCISION ([facility]) BONE MARROW,BIOPSY Referral ID Status Reason Start Date Expiration Date Visits Re quested Visits Authorized [id number] 1 1 Encounter Details Date Type Department Care Team (Late st Contact Info) Description 03/18/2015 11:30 AM EST - 03/18/2015 12:30 PM EST Surgery [place] [id number] Chris Jacobson MD [facility] DR HEMATOLOGY/[place] [address] ([facility] MS[facility]G) BONE MARROW ASP PERFORMED W/BX THRU BX INCISION (WRVU 0.16) Social History Tobacco Use Types Packs/Day Years Used Date Smoking Tobacco: Former Sex and Gender Information Value Date Recorded Sex Assigned at Female 07/30/2020 12:05 PM EDT Gender Identity Female 07/30/2020 12:05 PM EDT Sexual Orientation Straight 07/30/2020 12 :05 PM EDT documented as of this encounter Last Filed Vital Signs Vital Sign Reading Time Taken Comments Blood Pressure 121/79 03/18/2015 1:00 PM EST Pulse 86 03/18/2015 1:00 PM EST Temperature 36.6 ??C (97.9 ??F) 03/18/2015 10:[address] Respiratory Rate 18 03/18/2015 1:00 PM EST Oxygen Saturation 94% 03/18/2015 1:00 PM EST Inhaled Oxygen Concentration - - Weight 72.6 kg (160 lb) 03/18/2015 10:22 AM EST Height - - Body Mass Index - - documented in this encounter Discharge Instructions * Discharge Instructions* Kerri Hummel RN - 03/18/2015 10:27 AM EST OUTPATIENT SURGERY POST-OPERATIVE INSTRUCTIONS BONE MARROW BIOPSY SITE 1. You have had a bone marrow aspiration and or/biopsy, which is like having an operation with a tiny, deep incision. 2. Do Not do any strenuous work today, like housework, yard work, sports of any kind or lifting more than 5 pounds as it may cause your bone marrow site to bleed. 3. To avoid infection, leave the clear plastic dressing on the site for three days. You may shower,bathe, or swim as you wish, provided the clear dressing remains intact, and all sides of the dressing are firmly adhered to the skin. In the unlikely event that a portion or the entire dressing should come off, you may replace it with a conventional cloth band aid. However, you will no longer be able to get the site wet until three days have passed, as a conventional band aid is not waterproof and the site is no longer a sterile area. 4. It is not unusual for the site to leak a scant amount of blood, so do not be alarmed to see a small collection, or ???puddle?? of blood under the dressing. Wound healing will still occur. 5. If you are uncertain if there is an increase in any leaking from your bone marrow site, roll up a towel, lie down on a firm surface, place the towel directly under the puncture site to apply pressure, and rest there for one half hour. Direct, FIRM thumb pressure applied to the site for 10 minutes works well as an alternative method. Leave the dressing on. 6. Most people do not experience much discomfort after this procedure, but if you do, you should ask your physician what to take. AVOID ASPIRIN PRODUCTS as these interfere with clotting. 7. After three days, remove your dressing and leave it off, so the air can get to the site to finish the healing process. 8. NOTIFY YOUR DOCTOR FOR: a. Redness b. Heat c. Fever d. Swelling e. Drainage f. Increased pain g. Foul odor (which may not be apparent through the dressing) If you are having problems or have any additional concerns or questions: Between 8am and 5pm - Call the Hematology Clinic at . After 5pm or on a weekend: Call the [facility] thermoscrew operator at and ask for the physician examination supervisor covering for your doctor. Instructions following sedation You may have received medication before and/or during your procedure, which affects judgement and reaction time. Use caution with stairs. Do not drive, operate machinery, drink alcoholic beverages, or make any legal decisions for 24 hours. You may eat a regular diet as tolerated. Do not smoke if you are alone. IV site -- slight redness, or tenderness is normal, you can use a warm compress. If tenderness and redness increases or foul drainage occurs, please contact your M. D. [address] ??? [place] [address] ??? [phone] ??? [email or web address] ??? [facility] ??? [facility] ??? [facility] documented in this encounter Medications at Time of Discharge Medication Sig Dispensed Refills Start Date End Date fluticasone propionate (Flonase) 50 mcg/actuation Ware, Suspension Daily 07/12/2012 aspirin 81 mg Tablet, [...] 03/16/2006 08/13/2020 documented as of this encounter H&P Notes * Pita Garland APRN - 03/18/2015 12:01 PM EST Images from the original note were not included. Pre-Sedation Assessment: Planned procedure: Unilateral Bone Marrow Aspirate with Biopsy Indications: Thrombocytosis Diagnosis: Thrombocytosis Assessment: Cardiovascular: Rhythm: Regular Rate: Normal Pulmonary: Breath sounds clear to auscultation ASA: 2: Patient with mild systemic disease Mallampati: I: soft palate, fauces, tonsillar pillars and uvula can be seen H&P reviewed: Yes Relevant diagnostic studies: None Confirm NPO status: Yes, Date and Time of last intake: 03/17 aat 1800 History of anesthetic complications: No Current medications reviewed: Yes Allergies reviewed: Yes Alcohol use: None, Date and Time of last drink: Drug use: None Sedation Plan: moderate (conscious sedation) The sedation plan, its benefits and risks, and alternatives were discussed with the patient. The planned procedure, its benefits and risks, and alternatives were discussed with the patient. The patient consented to the procedure. Discharge to: Home Pita Garland, MSN, COMPUTER DRAFTER Nurse Practitioner Section of Hematology/Oncology [facility] Office phone: documented in this encounter Procedure Notes * Pita Garland APRN - 03/18/2015 12:33 PM ESTProcedure(s): BONE MARROW ASPIRATION W BIOPSY Pre-Procedure Diagnose(s): Thrombocytosis BONE MARROW BIOPSY AND ASPIRATION PROCEDURE NOTE Bone Marrow Biopsy & Aspiration with Conscious Sedation Date/Time of Procedure: 03/18/15 at 12:30pm Proceduralist: PITA GARLAND APRN, RN, MS, RADIATION OFFICER DIAGNOSIS: Thrombocytosis Pre-Procedure: (x) Consent signed and on chart. (x) CBC drawn within 3 days. (x) Medications/Allergies (x) H & P complete Prior to start of procedure the following is verified in a TIME OUT: (x) Patient identity (x) Planned procedure (x) Safety concerns IV ACCESS: Per sedation RN PAIN INTERVENTION: Per sedation RN Sterile Condition: Chlorohexidine was used to sterilize the area. Sterile drapes were used to create a sterile field. Local Anesthesia: 1% Lidocaine 18mLs with Sodium Bicarbonate 8.4% 2mLs PROCEDURE: A bone marrow biopsy and aspiration was performed on the RIGHT posterior iliac crest. Tegaderm dressing placed and pressure applied to site(s) for 30 minutes following the procedure. Estimated Blood Loss: minimal Complications: none POST INTERVENTION CARE & PAIN ASSESSMENT: Per [facility] nurses. Follow-up: Written/Verbal instructions for site care given to patient per [facility] nurses. Follow-up with Physician as instructed. Pita Garland, MSN, COMPUTER DRAFTER Nurse Practitioner Section of Hematology/Oncology [facility] Office phone: documented in this encounter Plan of Treatment Not on file documented as of this encounter Procedures Procedure Name Priority Date/Time Associated Diagnosis Comments CHROMO REPORT ACQUIRED Routine 03/18/2015 3:28 PM EST BONE MARROW FINAL REPORT Routine 03/18/2015 12:31 PM EST IRON STAIN, BONE MARROW Routine 03/18/2015 12:31 PM EST BONE MARROW PANEL ([facility]/APD) Routine 03/18/2015 12:31 PM EST ([facility]) BONE MARROW BIOPSY; DIAGNOSTIC (WRVU 1.28) 03/18/2015 12:04 PM EST Thrombocythemia ([facility]) BONE MARROW ASP PERFORMED W/BX THRU BX INCISION (WRVU 0.16) 03/18/2015 12:04 PM EST Thrombocythemia ([facility] MSURG)BONE MARROW ASP PERFORMED W/BX THRU BX INCISION Routine 03/18/2015 10:19 AM EST ([facility]) BONE MARROW BIOPSY; DIAGNOSTIC Routine 03/18/2015 10:19 AM EST HEMOGRAM Routine 03/18/2015 10:00 AM EST DIFFERENTIAL, AUTOMATED Routine 03/18/2015 10:00 AM EST CBC (WITH DIFF) Routine 03/18/2015 10:00 AM EST documented in this encounter Results * chromo report acquired (03/18/2015 3:28 PM EST) Pathologist [facility] Cytogenetics Acquired Report Final Report ? [id number] Specimen Type: Bone Marrow Specimen Condition: ~3ml, with fat and spicules Collection Date/Time: 03/18/2015 12:31 Received Date/Time: 03/19/2015 09:09 Indication: Thrombocytosis ---Results--- Normal Karyotype ---Karyotype--- 46,XX[20] ---Preparation--- Culture Type: 24 and 48 hour short term cultures Days in Culture: 1-2 Banding Method: G-banding Banding Level: 350-400 bands ---Analysis--- Cultures Analyzed: 2 Metaphase Cells Counted: ??30 Metaphase Cells Analyzed: ??20 Metaphase Cells Karyotyped: ??3 ---Interpretation --- Cytogenetic analysis revealed a normal female karyotype of 46,XX. No clonal abnormalities were observed. ---Comments--- This result should be correlated with clinical presentation and other laboratory testing results. 12.30.15 (Electronic Signature) Verified By: Ward SALCIDO, Ph.D., [facility] Director, Cytogenetics [facility] 03/18/2015 3:28 PM EST Chris Jacobson MD HEMATOLOGY ORDERABLE S [facility] * Bone Marrow Final Report (03/18/2015 12:31 PM EST) Bone Marrow Final Report [id number] ?Location: The signing pathologist has (i) examined the relevant preparation(s) for the specimen(s) and (ii) rendered or confirmed the diagnosis(es). . ?Molecular Genetics RESULTS DIAGNOSIS 1. Thrombocytosis, by history 2. Normocellular marrow with maturing trilineage hematopoiesis. No morphologic features of involvement by a myeloproliferative neoplasm ??are seen. Cytogenetics and molecular studies pending. Myeloid Sequencing Panel (54-Gene Panel) SPECIMEN: ??[id number] Analysis: ??Examination of DNA extracted from peripheral blood or bone marrow aspirates for somatic mutation analysis. Results: ??This sample failed QC metrics post-sequencing. ?? If testing is warranted as per clinical indication, please contact the attending pathologist in order to resubmit an alternative tissue sample. Reviewed by: Ana Betts, PhD, Genomic Supervisor Front ?04/10/15 16:41 Reviewed by: Tre Whitlock, PhD, HCLD, Director-CGAT ([facility], 04/13/15 15:34) Verified date: ??04/24/15 ??JERZY Verified by: ?Monica SALCIDO, Josesito ?(Electronic Signature) ? Bone Marrow Final DIAGNOSIS 1. Thrombocytosis, by history 2. Normocellular marrow with maturing trilineage hematopoiesis. No morphologic features of involvement by a myeloproliferative neoplasm ??are seen. Cytogenetics and molecular studies pending. 03/19/15 [facility] 03/20/15 Verified by: ? Josesito Anderson MD ?Hematopathologist ?(Electronic Signature) The attending pathologist whose signature appears on this report has reviewed all diagnostic slides and has edited the gross and/or microscopic portion of the report in rendering the final pathologic diagnosis. . DISCUSSION A 54 gene myeloid panel is ordered which includes JAK2, CALR, and BCR-ABL. Please correlate with results. PERIPHERAL SMEAR WBC 8.31K/ul; RBC 4.52a541/ul; Hgb 13.0; MCV 84.2; RDW 14.1; PLT 600K/ul There is no anemia (13.0 gm/dl). ??The red blood cells show mild anisopoikilocytosis with elliptocytes seen. ??The white blood (8.31 10^3/uL) cells show normal morphology. Platelets are increased but show normal platelet morphology along with occasional large forms. BONE MARROW ASPIRATE The bone marrow aspirate is adequate. ??It is cellular with granulocyte:erythroid ratio of 3:2. ??Erythroid precursors show normoblastic maturation. ??Granulocytic precursors show normal maturation. ??Megakaryocytes are normal in number and generaly show normal morphology. A few atypical small megakaryocytes are seen. ??Lymphocytes and plasma cells are normal. ??Iron stain performed and shows that iron stores are absent. ??No ringed sideroblasts are seen. DIFFERENTIAL Neutrophils/bands 28%, Lymphocytes 8%, Monocytes 2%, Eosinophils 6%, Basophils 0%, Metamyelocytes 5%, Myelocytes 4%, Promyelocytes 9%, Blasts 3%, Erythroid precursors 34%, Plasma cells 1%. BONE MARROW BIOPSY and/or CLOT The adequate decalcified bone marrow biopsy is normocellular (40%). ??The erythroid precursors are numerically normal. ??The granulocytic precursors are numerically normal with normal maturation. ??Megakaryocytes are adequate in number and show normal distribution. No megakaryocyte clusters are seen. A single small loose interstitial lymphoid aggregate is seen, consistent with a reactive lymphoid aggregate. ??Plasma cells are not increased. ??Granulomas are not identified. ??Bony spicules appear normal for age. Deep level sections examined. CLINICAL INFORMATION Specimen: ? Bone marrow aspirate and biopsy, right Clinical Diagnosis: ? Thrombocytosis Indication for Study: ?? Evaluate for myeloproliferative disorder CERNER MILLENNIUM 03/18/2015 12:3 1 PM EST Chris Jacobson MD PATHOLOGY/CYTOLOGY O RDERABLES EDNA MILLENNIUM * Iron Stain, Bone Marrow (03/18/2015 12:31 PM EST) Iron Stain BM See Comment CERN ER MILLENNIUM Comment:See Bone Marrow Repo rt [id number] under Hematopathology Reports. Bone marrow specimen (specimen) 03/18/2015 12:31 PM EST 03/18/2015 12:53 PM EST Narrative Resulting Agency Comment Spec In Lab Chris Jacobson MD HEMATOLOGY ORDERABLE S CERGLORIA MILLENNIUM * Differential, Automated (03/18/2015 10:00 AM EST) Neutrophils % 51.6 % CERNER MILLENNIUM Neutr Abs (ANC) 4.29 1.50 - 6.30 x10(3)/mcL CERNER MILLENNIUM Lymphocytes % 36.7 % CERNER MILLENNIUM Lymphocytes Abs 3.0 1.0 - 3.6 x10(3)/mcL CERNER MILLENNIUM Monocytes % 7.7 % CERNER MILLENNIUM Monocyte Abs 0.6 0.2 - 1.0 x10(3)/mcL CERNER MILLENNIUM Eosinophils % 2.9 % CERNER MILLENNIUM Eosinophils Abs 0.2 0.0 - 0.5 x10(3)/mcL CERNER MILLENNIUM Basophils % 0.7 % CERNER MILLENNIUM Basophils Abs 0.1 0.0 - 0.2 x10(3)/mcL CERNER MILLENNIUM Immature Gran % 0.40 % CERN ER MILLENNIUM Comment: Immature granulocytes(IG's)percentage and absolute count will include metamyelocytes, myelocytes, and promyelocytes. Blood smears from CBCs yielding IG's will be scanned manually for concordance. If this scan disagrees with the automated IG or if promyelocytes are noted, a manual differential will be performed. Cierra Gran Abs 0.03 0.00 - 0.05 x10(3)/mcL CERNER MILLENNIUM Blood specimen (specimen) 03/18/2015 10:00 AM EST 03/18/2015 11:57 AM EST Narrative Resulting Agency Comment Spec In Lab Chris Jacobson MD HEMATOLOGY ORDERABLE S CERNER MILLENNIUM * (ABNORMAL) Hemogram (03/18/2015 10:00 AM EST) WBC 8.3 4.0 - 10.0 x10(3)/mcL CERNER MILLENNIUM RBC 4.69 3.93 - 5.22 x10(6)/mcL CERNER MILLENNIUM Hemoglobin 13.0 11.2 - 15.7 gm/dL CERNER MILLENNIUM Hematocrit 39.5 34.0 - 45.0 % CERNER MILLENNIUM MCV 84.2 79.0 - 94.0 fL CERNER MILLENNIUM MCH 27.7 26.6 - 32.2 pg CERNER MILLENNIUM MCHC 32.9 32.0 - 36.5 gm/dL CERNER MILLENNIUM Platelets 600(H) 145 - 370 x10(3)/mcL CERNER MILLENNIUM RDWSD 43.1 35.0 - 46.0 fL CERNER MILLENNIUM RDWCV 14.1 10.9 - 14.4 % CERNER MILLENNIUM MPV 9.6 9.0 - 12.0 fL CERNER MILLENNIUM Blood specimen (specimen) 03/18/2015 10:00 AM EST 03/18/2015 11:57 AM EST Narrative Resulting Agency Comment Spec In Lab Chris Jacobson MD HEMATOLOGY ORDERABLE S EDNA ROMERO documented in this encounter Visit Diagnoses Not on filedocumented in this encounter Administered Medications Inactive Administered Medications - up to 3 most recent administrations Medication Order MAR Action Action Date Dose Rate Site fentaNYL 50 mcg/mL multi-dose injection 25 mcg, Intravenous, EVERY 5 MIN PRN, Starting on Mon03/18/15 at 1022, Until Mon03/18/15 at 1512, Pain, Administer every 5 min to achieve pain scale 1-3. Hold for respiratory rate less than 8 breaths per minute. Dose not to exceed 200 mcg., Intra-Operative (Intra-Procedure), Routine Given 03/18/2015 12:19 PM EST 25 mcg Given 03/18/2015 12:11 PM EST 25 mcg midazolam (PF) (VERSED) 1 mg/mL multi-dose injection 0.25-1 mg 0.25-1 mg, Intravenous, EVERY 5 MIN PRN, Starting on Mon03/18/15 at 1022, Until Mon03/18/15 at 1512, Anxiety, Administer every 5 minutes to achieve RASS (-)1. Hold for delirium/agitation. Dose not to exceed 4 mg., Intra-Operative (Intra-Procedure), Routine Given 03/18/2015 12:16 PM EST 1 mg Given 03/18/2015 12:09 PM EST 1 mg sodium chloride 0.9% infusion 125 mL/hr, Intravenous, CONTINUOUS, Starting on Mon03/18/15 at 1045, Until Mon03/18/15 at 1512, Day of Surgery (Day of Procedure) New Bag 03/18/2015 10:46 AM EST 125 mL/hr 125 mL/hr documented in this encounter Active and Recently Administered Medications Times are shown in EST. Continuous Medication Order 03/16/2015 03/17/2015 03/18/2015 sodium chloride 0.9% infusion (CANCELED) 125 mL/hr, Intravenous, CONTINUOUS, Starting on Mon03/18/15 at 1045, Until Mon03/18/15 at 1512, Day of Surgery (Day of Procedure) 1046 (New Bag - Prov ider: Giovana Au RN) PRN Medication Order 03/16/2015 03/17/2015 03/18/2015 fentaNYL 50 mcg/mL multi-dose injection (CANCELED) 25 mcg, Intravenous, EVERY 5 MIN PRN, Starting on Mon03/18/15 at 1022, Until Mon03/18/15 at 1512, Pain, Administer every 5 min to achieve pain scale 1-3. Hold for respiratory rate less than 8 breaths per minute. Dose not to exceed 200 mcg., Intra-Operative (Intra-Procedure), Routine 1211 (Given - Provid er: Xiomara Carmona RN)1219 (Given - Provider: Xiomara Carmona RN) midazolam (PF) (VERSED) 1 mg/mL multi-dose injection 0.25-1 mg (CANCELED) 0.25-1 mg, Intravenous, EVERY 5 MIN PRN, Starting on Mon03/18/15 at 1022, Until Mon03/18/15 at 1512, Anxiety, Administer every 5 minutes to achieve RASS (-)1. Hold for delirium/agitation. Dose not to exceed 4 mg., Intra-Operative (Intra-Procedure), Routine 1209 (Given - Provid er: Xiomara Carmona, MARCO)1216 (Given - Provider: Xiomara Carmona RN) documented in this encounter Care Teams Gyroscopic Instrument Mechanic Relationship Specialty Start Date End Date Roxy Mehta MD [address] [place] [address] PCP - General 02/23/10 documented as of this encounter
--- OUTSIDE RECORDS SUMMARY | 2023-10-19 11:11 | XMS_ITS | Encounter Summary ---
Author Organization [facility] [place] [address] Care Team Providers Care Organ Teacher Name Role Phone Roxy Mehta MD Primary Care Provider [phone] Reason for Visit * Auth/Cert Specialty Diagnoses / Procedures Referred By Kishore t Referred To Contact Diagnoses Thrombocythemia Procedures PRO BONE MARROW ASPIRATION W/BX THROUGH SAME INCISION/SITE PRO BONE MARROW BX, NEEDLE/TROCAR ([facility]) BONE MARROW ASP PERFORMED W/BX THRU BX INCISION ([facility]) BONE MARROW,BIOPSY Referral ID Status Reason Start Date Expiration Date Visits Re quested Visits Authorized [id number] 1 1 Encounter Details Date Type Department Care Team (Latest Contact Info) Description 03/18/2015 10:08 AM EST - 03/18/2015 1:11 PM [facility] Hospital Encounter [facility] [place] [phone] Chris Jacobson MD [facility] HEMATOLOGY/[place] [address] Discharge Disposition: Home Social History Tobacco Use [...] 5pm or on a weekend: Call the [facility] traveling crane operator at and ask for the physician brickmason apprentice covering for your doctor. Instructions following sedation [...] occurs, please contact your M. D. [address] ??? [place] [address] ??? [phone] ??? [email or web address] ??? [facility] [place] [facility] ??? [facility] ??? [facility] documented in this encounter Medications at Time of Discharge Medication Sig Dispensed Refills Start Date End Date fluticasone propionate (Flonase) 50 mcg/actuation [address], Suspension Daily 07/12/2012 aspirin 81 mg Tablet, [...] procedure. Discharge to: Home Pita Garland, MSN, SOLID WASTE COLLECTION WORKER Nurse Practitioner Section of Hematology/Oncology [facility] Office phone: documented in this encounter Procedure Notes * Pita Garland APRN - 03/18/2015 12:33 PM ESTProcedure(s): BONE MARROW ASPIRATION W BIOPSY Pre-Procedure Diagnose(s): Thrombocytosis BONE MARROW BIOPSY AND ASPIRATION PROCEDURE NOTE Bone Marrow Biopsy & Aspiration with Conscious Sedation Date/Time of Procedure: 03/18/15 at 12:30pm Proceduralist: PITA GARLAND APRN, RN, MS, CAMERA MACHINIST DIAGNOSIS: Thrombocytosis Pre-Procedure: (x) Consent signed and [...] with Physician as instructed. Pita Garland, MSN, SOLID WASTE COLLECTION WORKER Nurse Practitioner Section of Hematology/Oncology [facility] Office phone: documented in this encounter Plan of Treatment Not on file documented as of this encounter Procedures Procedure Name Priority Date/Time Associated Diagnosis Comments CHROMO REPORT ACQUIRED Routine 03/18/2015 3:28 PM EST BONE MARROW FINAL REPORT Routine 03/18/2015 12:31 PM EST IRON STAIN, BONE MARROW Routine 03/18/2015 12:31 PM EST BONE MARROW PANEL (MC/CGP/APD) Routine 03/18/2015 12:31 PM EST ([facility]) [...] report acquired (03/18/2015 3:28 PM EST) Pathologist [facility] Cytogenetics Acquired Report Final Report ? [id number] Specimen Type: Bone Marrow Specimen Condition: ~3ml, [...] (Electronic Signature) Verified By: Ward SALCIDO, Ph.D., [facility] Director, Cytogenetics EDNA ROMERO 03/18/2015 3:28 PM EST Chris Jacobson MD HEMATOLOGY ORDERABLE [facility] * Bone Marrow Final Report (03/18/2015 12:31 PM EST) Bone Marrow Final Report [id number] ?Location: The signing pathologist has (i) examined the relevant preparation(s) for the specimen(s) and (ii) rendered or confirmed the diagnosis(es). . ?Molecular Genetics RESULTS DIAGNOSIS 1. Thrombocytosis, by history 2. Normocellular marrow with maturing trilineage hematopoiesis. No morphologic features of involvement by a myeloproliferative neoplasm ??are seen. Cytogenetics and molecular studies pending. Myeloid Sequencing Panel (54-Gene Panel) SPECIMEN: ??[id number] Analysis: ??Examination of DNA extracted from peripheral blood or bone marrow aspirates for somatic mutation analysis. Results: ??This sample failed QC metrics post-sequencing. ?? If testing is warranted as per clinical indication, please contact the attending pathologist in order to resubmit an alternative tissue sample. Reviewed by: Ana Betts, PhD, Genomic Coal Mill Operator ?04/10/15 16:41 Reviewed by: Tre Whitlock, PhD, [facility], Director-[facility] ([facility], 04/13/15 15:34) Verified date: ??04/24/15 ??JERZY Verified by: ?Monica SALCIDO, Josesito ?(Electronic Signature) ? Bone Marrow Final DIAGNOSIS 1. Thrombocytosis, by history 2. Normocellular marrow with maturing trilineage hematopoiesis. No morphologic features of involvement by a myeloproliferative neoplasm ??are seen. Cytogenetics and molecular studies pending. 03/19/15 [facility] 03/20/15 Verified by: ? Josesito Anderson [...] with results. PERIPHERAL SMEAR WBC 8.31K/ul; RBC 4.89d802/ul; Hgb 13.0; MCV 84.2; RDW 14.1; PLT [...] EST Chris Jacobson MD PATHOLOGY/CYTOLOGY O RDERABLES CERGLORIA MILLENNIUM * Iron Stain, Bone Marrow (03/18/2015 12:31 PM EST) Iron Stain BM See Comment CERN ER MILLENNIUM Comment:See Bone Marrow Repo rt [id number] under Hematopathology Reports. Bone marrow specimen (specimen) [...] MAR Action Action Date Dose Rate Site sodium chloride 0.9% infusion 125 mL/hr, Intravenous, [...] Routine 1211 (Given - Provid er: Xiomara Carmona, RN)1219 (Given - Provider: Xiomara Carmona, RN) midazolam (PF) (VERSED) 1 mg/mL multi-dose injection 0.25-1 mg (CANCELED) 0.25-1 mg, Intravenous, EVERY 5 MIN PRN, Starting on Mon03/18/15 at 1022, Until Mon03/18/15 at 1512, Anxiety, Administer every 5 minutes to achieve RASS (-)1. Hold for delirium/agitation. Dose not to exceed 4 mg., Intra-Operative (Intra-Procedure), Routine 1209 (Given - Provid er: Xiomara Carmona, RN)1216 (Given - Provider: Xiomara Carmona, MARCO) documented in this encounter Care Teams Organ Teacher Relationship Specialty Start Date End Date Roxy Mehta MD [address] [place] [address] PCP - General 02/23/10 documented as of this encounter
[2023-10-19 11:39] LABS: ALT 27 U/L (14-59); AST 18 U/L (15-37); Albumin 3.5 g/dL (3.4-5.0); Alkaline Phosphatase 148 U/L (46-116); Anion Gap 10.1 mmol/L (3-11); BUN 18 mg/dL (7-18); Bilirubin, Total 0.21 mg/dL (0.2-1.0); CO2 22.9 mmol/L (21.0-32.0); Calcium 9.1 mg/dL (8.5-10.1); Chloride 104 mmol/L (98-107); Glucose 126 mg/dL (74-106); Potassium 4.2 mmol/L (3.5-5.1); Sodium 137 mmol/L (136-145); Total Protein 7.4 g/dL (6.4-8.2)
[2023-10-19 11:46] LABS: NT-proBNP 28 pg/mL (<300)
[2023-10-19 11:51] LABS: Troponin I < 50 ng/L (< or =60)
--- NOTE | 2023-10-19 12:00 | DI.CT_ITS ---
Exam(s) CT CHEST PE CTA EXAM: CT CHEST PE CTA CLINICAL HISTORY: shortness of breath, lightheadedness. TECHNIQUE: Imaging Protocol: CT angiography of the chest was performed using pulmonary embolus christen col. Multi planar reconstructions were performed. CONTRAST MATERIAL: Intravenous: Omnipaque 350 Contrast volume: 85 cc COMPARISON: CT CT CHEST PE CTA from 12/16/2020 FINDINGS: CHEST: PULMONARY ARTERIES: Suboptimal bolus timing. There are no obvious intraluminal filling defects to sug gest acute pulmonary emboli. LUNGS: There are no infiltrates nor evidence of pulmonary infarction.. No ominous pulmonary nodules. No pleural effusions. No significant focal findings in the trachea and mainstem bronchi. MEDIASTINUM: There is no hilar nor mediastinal adenopathy. Visualized thyroid unremarkable.Prominent hiatal hernia again noted. CARDIAC: Heart size is normal. There is no pericardial effusion.Caliber of the thoracic aorta is wit hin normal limits. No evidence of dissection. There is no significant shift of the interventricular septum. PARTIALLY VISUALIZED UPPERMOST ABDOMEN: Hiatal hernia. Right adrenal unremarkable. Tiny hypodense n odule left adrenal gland measuring 5-6 mm which is probably an adenoma. Calcified splenic granuloma noted spleen size normal. OSSEOUS: No significant osseous lesions.. IMPRESSION: 1. No evidence of obvious acute pulmonary emboli. No evidence of pulmonary infarction.No pleural eff usions. 2. Prominent hiatal hernia noted. This measures 7 cm wide by 5 cm AP x 5 cm craniocaudal. Called by myself to ER provider. RADIATION DOSE DELIVERED: Total DLP DATA REPOSITORY: All CT scans at this facility are submitted to the National Radiology Data Registry (NRDR) Dose Index Registry (DIR) with the [employer] (A[employer]). RADIATION OPTIMIZATION: All CT scans at this facility use at least one of these dose optimization te chniques: automated exposure control; mA and/or kV adjustment per patient size (includes targeted exa ms where dose is matched to clinical indication); or iterative reconstruction.
[2023-10-19] MEDS: Omnipaque 350 MG/ML 100 ML BTL IJ (12:19)
[2023-10-19 12:21] LABS: Ferritin 36 ng/mL (8-252)
[2023-10-19 12:57] LABS: COVID-19 PCR Negative (Negative); Influenza A PCR Negative (Negative); Influenza B PCR Negative (Negative); RSV PCR Negative (Negative)
[2023-10-19 13:12] LABS: Source Nasopharynx
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
[2023-10-19 14:05] LABS: Troponin I < 50 ng/L (< or =60)
[2023-10-19 14:42] LABS: Bilirubin Negative (Negative); Blood Negative (Negative); Clarity Clear (Clear); Glucose Negative (Negative); Ketones Negative (Negative); Leukocyte Esterase Negative (Negative); Nitrite Negative (Negative); Specific Gravity 1.015 (1.005-1.025); Urobilinogen 0.2 mg/dL (Up to 0.2); pH 7.5 (5-8)
== END 2023-10-19 15:48 | disposition home or self-care (01) ==
PROVIDERS: Emergency Provider Student in an Organized Health Care Education/Training Program; PCP Family Medicine
DX: R53.83 Other fatigue (principal); R05.9 Cough, unspecified; R06.02 Shortness of breath; K44.9 Diaphragmatic hernia without obstruction or gangrene; J32.9 Chronic sinusitis, unspecified; E78.5 Hyperlipidemia, unspecified; E11.9 Type 2 diabetes mellitus without complications; Z86.711 Personal history of pulmonary embolism; Z79.84 Long term (current) use of oral hypoglycemic drugs; Z87.891 Personal history of nicotine dependence
CPT/HCPCS: 36415; 71275; 80053; 87637; 93005; 99285; 71046; 81003; 82728; 83735; 83880; 84484; 85025; 93010; 99284; J3490

== ENCOUNTER 2023-10-30 01:49 | Outpatient (RCR) | payer MEDICARE, SELFPAY ==
--- OUTSIDE RECORDS SUMMARY | 2023-10-30 01:51 | XMS_ITS | Encounter Summary ---
Author Organization [facility] [place] [address] Care Team Providers Care National Account Director Name Role Phone Roxy Mehta MD Primary Care Provider [phone] Encounter Details Date Type Department Care Team (Latest Contact Info) Description 06/17/2021 10:00 AM EDT Office Visit Hematology/Oncology at [address] [phone] Chris Jacobson MD [facility] [place] [address] Samantha Pardo APRN [facility] [place] [address] Iron deficiency anemia, unspecified iron deficiency anemia [...] female who I am seeing in the [facility]. She has been followed by [...] Rfl: ??? fluticasone propionate (Flonase) 50 mcg/actuation [place], Suspension, Daily, Disp: , Rfl: ??? levothyroxine [...] thrombocytosis documented in this encounter Care Teams National Account Director Relationship Specialty Start Date End Date Roxy Mehta MD [address] [place] [address] PCP - General 02/23/10 documented as of this encounter
--- OUTSIDE RECORDS SUMMARY | 2023-10-30 01:51 | XMS_ITS | Encounter Summary ---
Author Organization [facility] [address] Care Team Providers Care Etl Bi Developer Name Role Phone Roxy Mehta MD Primary Care Provider [phone] Reason for Visit * Reason Comments Skin Check Skin Lesion spots on chest now s preading to face Encounter Details Date Type Department Care Team (Late st Contact Info) Description 01/05/2017 11:15 AM EDT Office Visit Dermatology at [facility] [address] [place] [address] Joyce Truong MD [facility] [address]LV[place] [address] Giordano angioma; Seborrheic keratosis; Solar lentigo Social [...] Progress Notes * Joyce Truong MD - 01/05/2017 11:15 AM EDT [...] the presence of Dr. Truong. DENISE HYDE DIRECTOR OF PHOTOGRAPHYJose Maria Burgos is documenting this encounter acting as the scribe for and in the presence of Joyce Truong MD. I performed the above scribed service and agree with the accuracy of the documentation in this encounter. Joyce Truong MD Section of Dermatology [facility] documented in this encounter Plan of Treatment Not on file documented as of this encounter Visit Diagnoses Diagnosis Giordano angioma Nevus, non-neoplastic Seborrheic keratosis Other seborrheic keratosis Solar lentigo Other dyschromia documented in this encounter Care Teams Etl Bi Developer Relationship Specialty Start Date End Date Roxy Mehta MD [address] [facility] [address] [place] [address] PCP - General 02/23/10 documented as of this encounter
--- OUTSIDE RECORDS SUMMARY | 2023-10-30 01:51 | XMS_ITS | Encounter Summary ---
Author Organization [facility] Address [facility] [place] [address] Care Team Providers Care Shim Plug Cutter Name Role Phone Roxy Mehta MD Primary Care Provider [phone] Reason for Visit * Reason Comments Skin Check rough areas on hairl ine Encounter Details Date Type Department Care Team (Late st Contact Info) Description 12/12/2017 9:30 AM EDT Office Visit Dermatology at [facility] [address] [place] [address] Moody Beck MD [facility] [address] [place] [address] Ainsley Perez PA [facility] [address] [place] [address] Lentigines; SKs (seborrheic keratoses) Social History Tobacco [...] call if areas become inflamed or irritated. [facility] [address] RTC: 1 year for FSE. Routed for [...] Reviewed and signed by Ainsley Perez PA-C [facility] Patient seen in conjunction with staff fork lift mechanic: Moody Beck MD Section of Dermatology [facility] * Moody Beck MD - 12/12/2017 9:30 AM EDT Patient seen and examined. Scattered regular brown macules c/w solar lentigines- discussed suncare,reassured about benign nature. Scattered stuck on papules and plaques c/w SK's- reassured about benign nature. Patient seen in conjunction with Ainsley Perez PA-C ([facility]) Signed by: MOODY BECK MD Section of Dermatology [facility] documented in this encounter Plan of Treatment Not on file documented as of this encounter Visit Diagnoses Diagnosis Lentigines Other dyschromia SKs (seborrheic keratoses) Other seborrheic keratosis documented in this encounter Care Teams Shim Plug Cutter Relationship Specialty Start Date End Date Roxy Mehta MD [address] [place] [address] PCP - General 02/23/10 documented as of this encounter
--- OUTSIDE RECORDS SUMMARY | 2023-10-30 01:51 | XMS_ITS | Clinical Summary ---
Author Organization [facility] Address [facility] [place] [address] Care Team Providers Care Facility Manager Histology Name Role Phone Roxy Mehta MD Primary Care Provider Allergies No known active allergies Medications Medication Sig Dispensed Refills Start Date End Date Status apixaban (Eliquis) 5 mg Tablet Take 2.5 mg by mouth 2 times daily. Active ferrous sulfate 325 mg (65 mg iron) Tablet Take 325 mg by mouth daily (with breakfast). Active losartan potassium (LOSARTAN ORAL) Take 50 mg by mouth daily. Active fluticasone propionate (Flonase) 50 mcg/actuation [place], Suspension Daily 07/12/2012 Active levothyroxine (Synthroid) 50 [...] normal cytogenetics. Negative for BCR/ABL. JAK2 negative Encounters Date Type Department Care Team Description 10/19/2023 Telephone Hematology/Oncology at [address] [address] Enid Romero RN from Last 3 Months Immunizations Name Administration Dates Next Due Influenza [...] 2006 Tetanus vaccine 04/07/2013 04/07/2003 Covid-19 Vaccine ( - 2022-24 season) 2022 Influenza (Flu) vaccine (1 o f 1 - Influenza standard series) 12/03/2023 01/22/2008, 03/16/2006, 02/08/2005 Care Teams Facility Manager Histology Relationship Specialty Start Date End Date Roxy Mehta MD [address] [place], [place] [id number] PCP - General 02/23/10
--- OUTSIDE RECORDS SUMMARY | 2023-10-30 01:51 | XMS_ITS | Encounter Summary ---
Author Organization [facility] [place] [address] Care Team Providers Care Stroboroma Operator Name Role Phone Roxy Mehta MD Primary Care Provider [phone] Encounter Details Date Type Department Care Team (Late st Contact Info) Description 04/28/2020 12:05 AM EST Ancillary Procedure [place] [address] Roxy Mehta MD [address] [place], [place] [id number] Social History Tobacco Use Types Packs/Day Years [...] CT Chest (04/28/2020 12:05 AM EST) Narrative [facility] - 05/07/2020 4:50 PM EST This exam is auto-finalizing. It's purpose is for storage only. Roxy Mehta MD [facility] FILM LIBRARY ORD ERABLES DH [place], [place] documented in this encounter Visit Diagnoses Not on filedocumented in this encounter Care Teams Stroboroma Operator Relationship Specialty Start Date End Date oRxy Mehta MD [address] [place] [address] [address] [place] [address] PCP - General 02/23/10 documented as of this encounter
--- OUTSIDE RECORDS SUMMARY | 2023-10-30 01:51 | XMS_ITS | Encounter Summary ---
Author Organization [facility] Address [facility] [place] [address] Care Team Providers Care Musical Engineer Name Role Phone Roxy Mehta MD Primary Care Provider Encounter Details Date Type Department Care Team (Late st Contact Info) Description 12/10/2020 1:00 PM EDT Office Visit Hematology/Oncology at [address] [phone] Chris Jacobson MD [facility] [place] [address] Flor Coleman APRN [address] [place] [address] DR HEMATOLOGY ONCOLOGY [place], [place] [id number] Iron deficiency anemia, unspecified iron deficiency anemia [...] Progress Notes * Chris Jacobson MD - 12/10/2020 1:00 PM EDT Subjective: Patient ID: Patricia Liu is a 79 y.o. female. HPI The patient is a 79-year-old female who I am seeing in the [facility]. She has a history of chronic elevation [...] GI tract including a capsule study in 2016 which did not reveal any sinister source [...] fluticasone propionate (Flonase Allergy Relief) 50 mcg/actuation [place], Suspension, Daily, Disp: , Rfl: ??? levothyroxine [...] thrombocytosis documented in this encounter Care Teams Musical Engineer Relationship Specialty Start Date End Date Roxy Mehta MD [address] [facility] [place] [address] PCP - General 02/23/10 documented as of this encounter
--- OUTSIDE RECORDS SUMMARY | 2023-10-30 01:51 | XMS_ITS | Encounter Summary ---
Author Organization [facility] [place] [address] Care Team Providers Care Organ Tuner Electronic Name Role Phone Roxy Mehta MD Primary Care Provider [phone] Encounter Details Date Type Department Care Team (Late st Contact Info) Description 08/18/2020 Telephone Hematology [place] [phone] Clarissa Zuleta RN Social History Tobacco Use [...] on filedocumented in this encounter Care Teams Organ Tuner Electronic Relationship Specialty Start Date End Date Roxy Mehta MD [address] [facility] [facility] [address] [place] [address] PCP - General 02/23/10 documented as of this encounter
--- OUTSIDE RECORDS SUMMARY | 2023-10-30 01:51 | XMS_ITS | Encounter Summary ---
Author Organization [facility] Address [facility] [place] [address] Care Team Providers Care Student Affairs Dean Name Role Phone Roxy Mehta MD Primary Care Provider [phone] Reason for Visit * Consultation (Urgent) - Closed Specialty Diagnoses / Procedures Referred By Contac t Referred To Contact Pulmonology Diagnoses Pulmonary hypertension, unspecified Multiple subsegmental pulmonary emboli without acute cor pulmonale Roxy Mehta MD [address] [place] [address] [facility] Pulmon[facility] [address] [place] [phone] Referral ID Status Reason Start Date Expiration Date V isits Requested Visits Authorized [id number] Closed Consult, Test & Treat Connection Center PCP Updated and/or Approved 05/07/2020 05/07/2021 6 6 Encounter Details Date Type Department Care Team (Late st Contact Info) Description 08/04/2020 2:00 PM EDT Office [place] [address] Camryn Valdez MD [facility] [place] [address] Carlton Choi MD [facility] [place] [address] REED (dyspnea on exertion) Social [...] from the original note were not included. [facility] Section of Pulmonary and Critical Care Medicine Outpatient Consultation Date of Encounter: 08/03/2020 Referring Provider: Roxy Mehta MD [address] [place] [address] [address] [facility] 1 [place] [address] PCP: Roxy Mehta MD Reason for Evaluation: [...] future problems arise. Carlton Choi MD [facility] PULMONOLOGY AT [facility] [address] Dept: [phone] Loc: [phone] * Camryn Valdez MD - 08/04/2020 2:00 [...] abnormality documented in this encounter Care Teams Student Affairs Dean Relationship Specialty Start Date End Date Roxy Mehta MD [address] [place] [address] PCP - General 02/23/10 documented as of this encounter
--- OUTSIDE RECORDS SUMMARY | 2023-10-30 01:51 | XMS_ITS | Encounter Summary ---
Author Organization [facility] [place] [address] Care Team Providers Care Aircraft Engine Installer Name Role Phone Roxy Mehta MD Primary Care Provider [phone] Reason for Referral * Consultation (Priority 3) - Closed Specialty Diagnoses / Procedures Referred By Contac t Referred To Contact Dermatology Diagnoses Disorder of the skin and subcutaneous tissue, unspecified Roxy Mehta MD [address] [place] [address] [facility] Dermatology [address] [place] [address] Referral ID Status Reason Start Date Expiration Date V isits Requested Visits Authorized [id number] Closed Consult, Test & Treat PCP Updated and/or Approved 10/06/2022 10/06/2023 6 6 Encounter Details Date Type Department Care Team (Late st Contact Info) Description 10/06/2022 Transcribe Orders eDH Incoming Referrals [phone] Roxy Mehta MD [address] [place] [address] Disorder of the skin and [...] unspecified documented in this encounter Care Teams Aircraft Engine Installer Relationship Specialty Start Date End Date Roxy Mehta MD [address] [place] [address] PCP - General 02/23/10 documented as of this encounter
--- OUTSIDE RECORDS SUMMARY | 2023-10-30 01:51 | XMS_ITS | Encounter Summary ---
Author Organization [facility] Address [facility] [place] [address] Care Team Providers Care Food Concession Manager Name Role Phone Roxy Mehta MD Primary Care Provider [phone] Encounter Details Date Type Department Care Team (Late st Contact Info) Description 05/15/2020 Orders [place] [address] Jb Gross MD [facility] [place] [address] Pulmonary hypertension (Primary Dx) Social History Tobacco [...] / FVC LLN 63 % COMPAS PFT [id number] Actual Pre-BD 2.40 L/s COMPAS PFT [id number] Pre-BD % of Predicted 157 % COMPAS PFT ULY50-49 Predicted 1.53 L/s COMPAS PFT NVM15-34 Pre-BD Z-Score 1.14 COMPAS PFT DLCO Hb [...] diseases documented in this encounter Care Teams Food Concession Manager Relationship Specialty Start Date End Date Roxy Mehta MD [address] [place] [address] PCP - General 02/23/10 documented as of this encounter
--- OUTSIDE RECORDS SUMMARY | 2023-10-30 01:51 | XMS_ITS | Encounter Summary ---
Author Organization [facility] [place] [address] Care Team Providers Care Hospital Personnel Director Name Role Phone Roxy Mehta MD Primary Care Provider [phone] Encounter Details Date Type Department Care Team (Late st Contact Info) Description 04/28/2020 Ancillary Procedure [place] [phone] Roxy Mehta MD [address] [place] [address] Social History Tobacco Use Types [...] Abdomen Pelvis (04/28/2020 12:00 AM EST) Narrative [facility] - 05/07/2020 4:49 PM EST This exam is auto-finalizing. It's purpose is for storage only. Roxy Mehta MD [facility] FILM LIBRARY ORD ERABLES DH [place], [place] documented in this encounter Visit Diagnoses Not on filedocumented in this encounter Care Teams Hospital Personnel Director Relationship Specialty Start Date End Date Roxy Mehta MD [address] [place] [address] [address] [place] [address] PCP - General 02/23/10 documented as of this encounter
--- OUTSIDE RECORDS SUMMARY | 2023-10-30 01:51 | XMS_ITS | Encounter Summary ---
[place] [address] Care Team Providers Care Senior Compliance Analyst Name Role Phone Roxy Mehta MD Primary Care Provider [phone] Reason for Visit * Reason Comments Advice Only * Consultation (Urgent) - Closed Specialty Diagnoses / Procedures Referred By Contoziel t Referred To Contact Hematology and Oncology Diagnoses Multiple subsegmental pulmonary emboli without acute cor pulmonale Anemia, unspecified Essential (hemorrhagic) thrombocythemia Roxy Mehta MD [address] [place] [address] [facility] Hem Onc [address] [place] [address] Referral ID Status Reason Start Date Expiration Date V isits Requested Visits Authorized [id number] Closed Consult, Test & Treat Connection Center PCP Updated and/or Approved 05/11/2020 05/11/2021 1 1 Encounter Details Date Type Department Care Team (Latest Contact Info) Description 08/11/2020 11:00 AM EDT Office Visit [place] [address] Wendy Espana MD [facility] [address] [place] [address] VTE (venous thromboembolism) (Primary Dx); Iron deficiency [...] were not included. [facility] [place] [address] THROMBOSIS CONSULTATION DATE OF VISIT 08/11/2020 Patient [...] Patricia has noticed some epigastric discomfort since Thanks last year. Around she hasstarted to not [...] 2015 small capsule study was done at [facility] [place] which revealed no sourceof chronic blood losses. [...] ENDOSCOPY performed by Darlyn Escalante MD at [facility] ENDOSCOPY ??? PRO BONE MARROW ASPIRATION W/BX THROUGH SAME INCISION/SITE Left 03/18/2015 ([facility]) BONE MARROW ASP PERFORMED W/BX THRU BX INCISION performed by Chris Jacobson MD at [facility] OSC ??? PRO BONE MARROW BX, NEEDLE/TROCAR Left 03/18/2015 ([facility]G) BONE MARROW,BIOPSY performed by Chris Jacobson MD at [facility] OSC TKA Left MEDICATIONS Current Outpatient Medications on File Prior to Visit Medication Sig Dispense Refill ??? fluticasone propionate (Flonase Allergy Relief) 50 mcg/actuation [place], Suspension Daily ??? levothyroxine (Synthroid) 50 mcg [...] of recurrent pulmonary embolism, who was referred [facility] for evaluation of pulmonary embolism, [...] is reasonable. However, the result won't likely waste/materials exchange specialist. She is interested to proceed with the [...] Results * Ferritin (08/11/2020 12:37 PM EDT) [facility] Ferritin 32 30 - 400 ng/mL [facility] Comment: Pediatric reference ranges not verified at [facility] [place], interpret with caution. Reference ranges for females greater than 50 years of age approach values for men, i.e., 30-400 ng/mL. Blood specimen (specimen) 08/11/2020 12:37 PM EDT 08/11/2020 1:14 PM EDT Narrative Resulting Agency Comment Spec In Lab Wendy Espana MD CHEMISTRY ORDERABLES Performing Organization Address City/[facility]/ZIP Co de Phone Number [facility] [place] [address] * Iron and TIBC (08/11/2020 12:37 PM EDT) Iron 81 30 - 150 mcg/dL [facility] TIBC 383 250 - 450 mcg/dL [facility] Iron Saturation 21 20 - 50 % [facility] Blood specimen (specimen) 08/11/2020 12:37 PM EDT 08/11/2020 1:14 PM EDT Narrative Resulting Agency Comment Spec In Lab Wendy Espana MD CHEMISTRY ORDERABLES Performing Organization Address City/[facility] Co de Phone Number [facility] [place] [address] documented in this encounter Visit Diagnoses Diagnosis VTE (venous thromboembolism)- Primary Embolism and thrombosis of unspecified site Iron deficiency anemia, unspecified iron deficiency anemia type Reactive thrombocytosis documented in this encounter Care Teams Senior Compliance Analyst Relationship Specialty Start Date End Date Roxy Mehta MD [address] [place] [address] PCP - General 02/23/10 documented as of this encounter
--- OUTSIDE RECORDS SUMMARY | 2023-10-30 01:51 | XMS_ITS | Encounter Summary ---
Author Organization [place] [address] Care Team Providers Care Manufacturing Maintenance Mechanic Name Role Phone Roxy Mehta MD Primary Care Provider [phone] Encounter Details Date Type Department Care Team (Late st Contact Info) Description 03/08/2019 Ancillary Procedure [place] [phone] Roxy Mehta MD [address] [place] [address] Social History Tobacco Use Types [...] Abdomen Pelvis (03/08/2019 12:00 AM EST) Narrative [facility] - 05/07/2020 4:47 PM EST This exam is auto-finalizing. It's purpose is for storage only. Roxy Mehta MD IM FILM LIBRARY ORD ERABLES [place], [place] documented in this encounter Visit Diagnoses Not on filedocumented in this encounter Care Teams Manufacturing Maintenance Mechanic Relationship Specialty Start Date End Date Roxy Mehta MD [address] [place] [address] [address] [facility] 1 [place] [address] PCP - General 02/23/10 documented as of this encounter
--- OUTSIDE RECORDS SUMMARY | 2023-10-30 01:51 | XMS_ITS | Encounter Summary ---
Author Organization [facility] Address [facility] [place] [address] Care Team Providers Care Wood Crafter Name Role Phone Roxy Mehta MD Primary Care Provider [phone] Encounter Details Date Type Department Care Team (Late st Contact Info) Description 05/08/2020 [place] [phone] Abimael Mascorro MD [facility] [place] [address] REED (dyspnea on exertion); Acute pulmonary embolism [...] type documented in this encounter Care Teams Wood Crafter Relationship Specialty Start Date End Date Roxy Mehta MD [address] [place] [address] [address] [place] [address] PCP - General 02/23/10 documented as of this encounter
--- OUTSIDE RECORDS SUMMARY | 2023-10-30 01:51 | XMS_ITS | Encounter Summary ---
Author Organization [facility] Address [facility] [place] [address] Care Team Providers Care Adjuster Arbitrator Name Role Phone Roxy Mehta MD Primary Care Provider [phone] Encounter Details Date Type Department Care Team (Late st Contact Info) Description 10/30/2017 Telephone Dermatology at [facility] [address] [place] [address] Joyce Truong MD [facility] [address] [place] [address] Social History Tobacco Use Types Packs/Day Years [...] a call to the number provided of [phone] and left a message with the correct number to contact Yina at [phone]. documented in this encounter Plan of Treatment Not on file documented as of this encounter Visit Diagnoses Not on filedocumented in this encounter Care Teams Adjuster Arbitrator Relationship Specialty Start Date End Date Roxy Mehta MD [address] [place] [address] PCP - General 02/23/10 documented as of this encounter
--- OUTSIDE RECORDS SUMMARY | 2023-10-30 01:51 | XMS_ITS | Encounter Summary ---
Author Organization [facility] [place] [address] Care Team Providers Care Social Problems Specialist Name Role Phone Roxy Mehta MD Primary Care Provider Encounter Details Date Type Department Care Team (Latest Contact Info) Description 08/11/2020 12:18 PM EDT - 08/11/2020 11:59 PM EDT Hospital Encounter [place]ology [place] [address] VTE (venous thromboembolism); Iron deficiency anemia, unspecified [...] End Date fluticasone propionate (Flonase) 50 mcg/actuation [place], Suspension Daily 07/12/2012 levothyroxine (Synthroid) 50 mcg [...] Act 129 64 - 149 % activity [facility] Blood specimen (specimen) Venous Draw / Unknown 08/11/2020 12:37 PM EDT 08/11/2020 1:14 PM EDT Narrative Resulting Agency Comment Spec In Lab Wendy Espana MD HEMATOLOGY ORDERABLE S [facility] [place] [address] * (ABNORMAL) Protein C activity (08/11/2020 12:37 PM EDT) Protein C Act >150(H) 70 - 140 % [facility] Blood specimen (specimen) Venous Draw / Unknown 08/11/2020 12:37 PM EDT 08/11/2020 1:14 PM EDT Narrative Resulting Agency Comment Spec In Lab Wendy Espana MD HEMATOLOGY ORDERABLE S [facility] [place] [address] * (ABNORMAL) Antithrombin (08/11/2020 12:37 PM EDT) Antithrombin >150(H) 83 - 128 % [facility] Blood specimen (specimen) Venous Draw / Unknown 08/11/2020 12:37 PM EDT 08/11/2020 1:14 PM EDT Narrative Resulting Agency Comment Spec In Lab Wendy Espana MD HEMATOLOGY ORDERABLE S [facility] [place] [address] * APC resistance (08/11/2020 12:37 PM EDT) Pathologist [facility] APC Resistance 3.10 >=2.54 [facility] Blood Venous Draw / Unknown 08/11/2020 12:37 PM EDT 08/11/2020 1:14 PM EDT Narrative Resulting Agency Comment Spec In Lab Wendy Espana MD HEMATOLOGY ORDERABLE S Performing Organization Address City/[facility]/ZIP Co de Phone Number [facility] [place] [address] * Differential, Automated (08/11/2020 12:37 PM EDT) [facility] Neutrophils % 58.2 % [facility] Neutr Abs (ANC) 5.54 1.70 - 6.10 x10(3)/[facility] Lymphocytes % 31.0 % [facility] Lymphocytes Abs 3.0 0.9 - 3.2 x10(3)/[facility] Monocytes % 8.9 % [facility] Monocyte Abs 0.8 0.3 - 0.9 x10(3)/[facility] Eosinophils % 0.9 % [facility] Eosinophils Abs 0.1 0.0 - 0.4 x10(3)/[facility] Basophils % 0.8 % [facility] Basophils Abs 0.1 0.0 - 0.1 x10(3)/[facility] Immature Gran % 0.20 % [facility] Comment: Immature granulocytes(IG's)percentage and absolute count will include metamyelocytes, myelocytes, and promyelocytes. Blood smears from CBCs yielding IG's will be scanned manually for concordance. If this scan disagrees with the automated IG or if promyelocytes are noted, a manual differential will be performed. [place] Gran Abs 0.02 0.00 - 0.04 x10(3)/[facility] Blood specimen (specimen) 08/11/2020 12:37 PM EDT 08/11/2020 1:14 PM EDT Narrative Resulting Agency Comment Spec In Lab Wendy Espana MD HEMATOLOGY ORDERABLE S [facility] [place] [address] * (ABNORMAL) Hemogram (08/11/2020 12:37 PM EDT) WBC 9.5 4.0 - 9.5 x10(3)/[facility] RBC 5.13 4.00 - 5.21 x10(6)/[facility] Hemoglobin 13.9 11.7 - 15.5 gm/dL [facility] Hematocrit 44.2 35.7 - 45.8 % [facility] MCV 86.2 82.6 - 94.4 [facility] MCH 27.1 27.1 - 32.0 pg [facility] MCHC 31.4(L) 31.7 - 35.0 gm/dL [facility] Platelets 492(H) 145 - 357 x10(3)/[facility] RDWSD 59.7(H) 37.0 - 46.0 [facility] RDWCV 18.6(H) 11.5 - 14.1 % [facility] MPV 9.3 7.6 - 12.9 [facility] nRBC % Auto 0.0 % [facility] nRBC Abs Auto 0.000 0.000 - 0.000 x10(3)/[facility] Blood specimen (specimen) 08/11/2020 12:37 PM EDT 08/11/2020 1:14 PM EDT Narrative Resulting Agency Comment Spec In Lab Wendy Espana MD HEMATOLOGY ORDERABLE S Performing Organization Address City/[facility]/ZIP Co de Phone Number [facility] [place] [address] * Beta-2 glycoprotein antibodies (08/11/2020 12:37 PM EDT) B2GPI IgG <9.4 <=20.0 unit(s) [facility] B2GPI IgM <9.4 <=20.0 unit(s) [facility] B2GPI Interp See Thrombosis Screen Report [id number] Hematopatholo gy Reports. [facility] Blood specimen (specimen) 08/11/2020 12:37 PM EDT 08/12/2020 7:29 AM EDT Narrative Resulting Agency Comment Spec In Lab Wendy Espana MD IMMUNOLOGY ORDERABLE S Performing Organization Address [facility] Co de Phone Number [facility] [place] [address] * Homocysteine Total, Plasma (08/11/2020 12:37 PM EDT) Homocyst Tot 11 <=15 mcmol/L [facility] Blood specimen (specimen) 08/11/2020 12:37 PM EDT 08/11/2020 1:14 PM EDT Narrative Resulting Agency Comment Spec In Lab Wendy Espana MD CHEMISTRY ORDERABLES Performing Organization Address [facility]/ZIP Co de Phone Number [facility] [place] [address] * Cardiolipin Antibody Screen (08/11/2020 12:37 PM EDT) Cardiolipin IgG <9.4 <=14.9 GPL unit(s) [facility] Comment: Ranges ?? GPL ------ ?? --- Negative ?? <=14.9 Indeterminate ??15.0 - 20.0 Low/Medium Positive 20.1 - 80.0 High Positive ??>80.0 Cardiolipin IgM <9.4 <=12.5 MPL unit(s) [facility] Comment: Ranges ?? MPL ------ ?? --- Negative ?? <=12.5 Indeterminate ??12.6 - 20.0 Low/Medium Positive 20.1 - 80.0 High Positive ??>80.0 Blood specimen (specimen) 08/11/2020 12:37 PM EDT 08/12/2020 7:29 AM EDT Narrative Resulting Agency Comment Spec In Lab Wendy Espana MD IMMUNOLOGY ORDERABLE S Performing Organization Address [facility]/ZIP Co de Phone Number [facility] [place] [address] * THS Report (08/11/2020 12:37 PM EDT) THS Report See Comment [facility] Comment:See Thrombosis Scree n Report [id number] under Hematopathology Reports. Blood 08/11/2020 12:3 7 PM EDT 08/11/2020 1:14 PM EDT Narrative Resulting Agency Comment Spec In Lab Wendy Espana MD HEMATOLOGY ORDERABLE S Performing Organization Address City/[facility]/ZIP Co de Phone Number [facility] [place] [address] * dRVVT (08/11/2020 12:37 PM EDT) dRVVT 0.86 <=1.20 IU/mL [facility] Comment: A result greater than [...] MD HEMATOLOGY ORDERABLE S Performing Organization Address [facility] Co de Phone Number [facility] [place] [address] * Silica Clotting Time (08/11/2020 12:37 PM EDT) Silica Clotting Time 1.13 <=1.16 ratio [facility] Comment: A result greater than [...] MD HEMATOLOGY ORDERABLE S Performing Organization Address [facility] Co de Phone Number [facility] [place] [address] * TT (08/11/2020 12:37 PM EDT) Thrombin Time 14 10 - 17 sec [facility] Comment: A prolongation in the [...] MD HEMATOLOGY ORDERABLE S Performing Organization Address [facility] Co de Phone Number [facility] [place] [address] * (ABNORMAL) FIBR (08/11/2020 12:37 PM EDT) Fibrinogen 465(H) 200 - 393 mg/dL [facility] Comment: A fibrinogen level >100 mg/dL is adequate for hemostasis in most patients without underlying bleeding disorders. Blood specimen (specimen) 08/11/2020 12:37 PM EDT 08/11/2020 1:14 PM EDT Narrative Resulting Agency Comment Spec In Lab Wendy Espana MD HEMATOLOGY ORDERABLE S Performing Organization Address [facility] Co de Phone Number [facility] [place] [address] * PTT (08/11/2020 12:37 PM EDT) PTT 34 25 - 37 sec [facility] Comment: The PTT is NOT appropriate for heparin monitoring. Use the Anti-Xa level for heparin monitoring (HEP UFH) or LMWH monitoring (HEP LMW). A PTT less than 37 seconds generally indicates adequate hemostasis. Blood specimen (specimen) 08/11/2020 12:37 PM EDT 08/11/2020 1:14 PM EDT Narrative Resulting Agency Comment Spec In Lab Wendy Espana MD HEMATOLOGY ORDERABLE S Performing Organization Address [facility] Co de Phone Number [facility] [place] [address] * (ABNORMAL) PT (08/11/2020 12:37 PM EDT) PT 13.0(H) 9.4 - 12.5 sec [facility] INR 1.1 [facility] Comment: An INR <2.0 indicates adequate [...] MD HEMATOLOGY ORDERABLE S Performing Organization Address [facility] Co de Phone Number [facility] [place] [address] * Iron and TIBC (08/11/2020 12:37 PM EDT) Iron 81 30 - 150 mcg/dL [facility] TIBC 383 250 - 450 mcg/dL [facility] Iron Saturation 21 20 - 50 % [facility] Blood specimen (specimen) 08/11/2020 12:37 PM EDT 08/11/2020 1:14 PM EDT Narrative Resulting Agency Comment Spec In Lab Wendy Espana MD CHEMISTRY ORDERABLES Performing Organization Address [facility] Co de Phone Number [facility] [place] [address] * Ferritin (08/11/2020 12:37 PM EDT) Ferritin 32 30 - 400 ng/mL [facility] Comment: Pediatric reference ranges not verified at [facility], interpret with caution. Reference ranges for females greater than 50 years of age approach values for men, i.e., 30-400 ng/mL. Blood specimen (specimen) 08/11/2020 12:37 PM EDT 08/11/2020 1:14 PM EDT Narrative Resulting Agency Comment Spec In Lab Wendy Espana MD CHEMISTRY ORDERABLES [facility] [place] [address] * Thrombosis Screen Report (08/11/2020 12:20 PM EDT) Thrombosis Screen Report [id number] ? Location: 3K The signing pathologist has [...] Santizo Verified: ??09/02/2020 11:32 ??Hematopathologist Performed at: ??-[facility] Dept. of Pathology, [place], [place] ADDITIONAL STUDIES TEST ?(REFERENCE RANGE) ?RESULT [...] antibodies ?(IgM </= 12.5 MPL) ?<9.4 MPL Vaio-0-yrgoxkauubff-1 antibodies ??(IgG </= 20 units) ?<9.4 units Xyon-0-lwcsljczpyuq-1 antibodies ??(IgM </= 20 units) ?<9.4 units Homocysteine, random, plasma ?(</=15 umol/L) ?11 umol/L Factor V Leiden Mutation ?(normal) ?Not performed Prothrombin (58139 G->A) mutation (normal) ?Not performed * Functional [...] with apixaban. No family history of VTE. [facility] 08/11/2020 12:2 0 PM EDT Wendy Espana MD PATHOLOGY/CYTOLOGY O RDERAANTELMO [facility] [place] [address] documented in this encounter Visit Diagnoses Diagnosis VTE (venous thromboembolism) Embolism and thrombosis of unspecified site Iron deficiency anemia, unspecified iron deficiency anemia type documented in this encounter Care Teams Social Problems Specialist Relationship Specialty Start Date End Date Roxy Mehta MD [address] [place] [address] PCP - General 02/23/10 documented as of this encounter
--- OUTSIDE RECORDS SUMMARY | 2023-10-30 01:51 | XMS_ITS | Encounter Summary ---
Author Organization [facility] Address [facility] [address] Care Team Providers Care Line Runner Name Role Phone Roxy Mehta MD Primary Care Provider [phone] Reason for Visit * Consultation (Routine) - Closed Specialty Diagnoses / Procedures Referred By Contac t Referred To Contact Dermatology Diagnoses Disorder of the skin and subcutaneous tissue, unspecified SK ON DRUZE, GROWING Roxy Mehta MD [address] [place] [address] [facility] Dermatology [address] [place] [address] Referral ID Status Reason Start Date Expiration Date V isits Requested Visits Authorized [id number] Closed Consult, Test & Treat Connection Center PCP Updated and/or Approved 03/04/2021 03/04/2022 6 6 Encounter Details Date Type Department Care Team (Late st Contact Info) Description 05/11/2021 11:30 AM EST [facility] [address] [place] [address] Ramón Grijalva MD [facility] [address] SYLV[place] [address] Seborrheic keratosis, inflamed; SK (seborrheic [...] brown stuck on papule on the right episcopalian -benign nature of lesions discussed -patient reassured. [...] treatment needed. RTC: PRN []Note routed to payroll secretary []Recall placed in scheduling system []Appointment scheduled at checkout Scribe attestation: Delon Herzog CMA has performed the documentation for this encounter in the presence of and acting as a scribe for Ramón Grijalva MD. I performed the above scribed service and agree with the accuracy of the documentation in this encounter. Reviewed and signed by: Ramón Grijalva MD Dermatology [facility] documented in this encounter Plan of Treatment Not on file documented as of this encounter Visit Diagnoses Diagnosis Seborrheic keratosis, inflamed Inflamed seborrheic keratosis SK (seborrheic keratosis) Other seborrheic keratosis documented in this encounter Care Teams Line Runner Relationship Specialty Start Date End Date Roxy Mehta MD [address] [address] PCP - General 02/23/10 documented as of this encounter
--- OUTSIDE RECORDS SUMMARY | 2023-10-30 01:51 | XMS_ITS | Encounter Summary ---
Author Organization [facility] [place] [address] Care Team Providers Care Digital Design Engineer Name Role Phone Roxy Mehta MD Primary Care Provider [phone] Encounter Details Date Type Department Care Team (Latest Contact Info) Description 08/04/2020 1:30 PM EDT - 08/04/2020 11:59 PM EDT Hospital En[place] [address] Pulmonary hypertension Discharge Disposition: Home Social History [...] End Date fluticasone propionate (Flonase) 50 mcg/actuation [place], Suspension Daily 07/12/2012 levothyroxine (Synthroid) 50 mcg [...] / FVC LLN 63 % COMPAS PFT RHT65-75 Actual Pre-BD 2.40 L/s COMPAS PFT ZNA62-75 Pre-BD % of Predicted 157 % COMPAS PFT EEM32-31 Predicted 1.53 L/s COMPAS PFT VID92-04 Pre-BD Z-Score 1.14 COMPAS PFT DLCO Hb [...] diseases documented in this encounter Care Teams Digital Design Engineer Relationship Specialty Start Date End Date Roxy Mehta MD [address] [place] [address] PCP - General 02/23/10 documented as of this encounter
--- OUTSIDE RECORDS SUMMARY | 2023-10-30 01:51 | XMS_ITS | Encounter Summary ---
Author Organization [facility] Address [facility] [place] [address] Care Team Providers Care Conversion Developer Name Role Phone Roxy Mehta MD Primary Care Provider [phone] Encounter Details Date Type Department Care Team (Late st Contact Info) Description 10/19/2023 Telephone Hematology/Oncology at [address] [address] Enid Romero RN Social History Tobacco Use Types Packs/Day Years Used Date Smoking Tobacco: Former Cigarettes Smokeless Tobacco: Never Comments:1960's Sex and Gender Information Value Date Recorded Sex Assigned at Female 07/30/2020 12:05 PM EDT Gender Identity Female 07/30/2020 12:05 PM EDT Sexual Orientation Straight 07/30/2020 12 :05 PM EDT documented as of this encounter Miscellaneous Notes * Telephone Encounter - Enid Romero RN - 10/19/2023 4:21 PM EDT Images from the original note were not included. Tried to call Maggie at [facility] back x 5 could not get past VM. Left VM. Dr. Jacobson referred Pt back to PCP management of [facility] on 06/17/[address] Pollock has been watching her Ferratin and last gave IV ferratin at [facility] infusion in April when ferratin level fell to the 30's. It looks like Pt is set up for Ferratin infusions at [facility] infusion Starting 10/29. Labs today: ----- Message from Marcia Moise sent at 10/19/2023 3:34 PM EDT ----- Just spoke with Maggie from [facility]. She was inquiring about Patricia being able to get an iron infusion here at the cancer center. Maggie said that Patricia's niece states that she has been talking to Dr. Jacobson and he said it was ok for that to happen. There is no note in the chart, no order and she has been seen by her PCP, Dr. Pollock. For this. The patient is at the ER and was thinking that this would happen today. Maggie is going to reach out to the PCP (whom is on vacation) to let her knowthis and see how to proceed. Maggie would like a phone call back from a nurse, please do not leave a message asf for them to get her so she can have a conversation and not have to play phone tag. Her number is [phone] Thank you Marcia documented in this encounter Plan of Treatment Not on file documented as of this encounter Visit Diagnoses Not on filedocumented in this encounter Care Teams Conversion Developer Relationship Specialty Start Date End Date Roxy Mehta MD [address] [place] [address] PCP - General 02/23/10 documented as of this encounter
--- OUTSIDE RECORDS SUMMARY | 2023-10-30 01:51 | XMS_ITS | Encounter Summary ---
Author Organization [place] [address] Care Team Providers Care Turnstile Collector Name Role Phone Roxy Mehta MD Primary Care Provider [phone] Encounter Details Date Type Department Care Team (Latest Contact Info) Description 10/03/2016 9:14 AM EDT - 10/03/2016 11:59 PM EDT Hospital Encounter Hematology [place] [address] Thrombocytosis Discharge Disposition: Home Social History Tobacco [...] End Date fluticasone propionate (Flonase) 50 mcg/actuation [place], Suspension Daily 07/12/2012 cholecalciferol, Vitamin D3, 50 [...] 9:24 AM EDT) Neutrophils % 55.4 % [facility] Neutr Abs (ANC) 4.34 1.70 - 6.10 x10(3)/[facility] Lymphocytes % 32.9 % [facility] Lymphocytes Abs 2.6 0.9 - 3.2 x10(3)/[facility] Monocytes % 8.4 % [facility] Monocyte Abs 0.7 0.3 - 0.9 x10(3)/[facility] Eosinophils % 1.5 % [facility] Eosinophils Abs 0.1 0.0 - 0.4 x10(3)/[facility] Basophils % 1.3 % [facility] Basophils Abs 0.1 0.0 - 0.1 x10(3)/[facility] LABOR[facility] Immature Gran % 0.50 % [facility] Comment: Immature granulocytes(IG's)percentage and absolute count will include metamyelocytes, myelocytes, and promyelocytes. Blood smears from CBCs yielding IG's will be scanned manually for concordance. If this scan disagrees with the automated IG or if promyelocytes are noted, a manual differential will be performed. [place] Gran Abs 0.04 0.00 - 0.04 x10(3)/[facility] Blood specimen (specimen) 10/03/2016 9:24 AM EDT 10/03/2016 9:27 AM EDT Narrative Resulting Agency Comment Spec In Lab Chris Jacobson MD HEMATOLOGY ORDERABLE S [facility] [place] [address] * (ABNORMAL) Hemogram (10/03/2016 9:24 AM EDT) WBC 7.8 4.0 - 9.5 x10(3)/[facility] RBC 4.40 4.00 - 5.21 x10(6)/[facility] Hemoglobin 11.6(L) 11.7 - 15.5 gm/dL [facility] Hematocrit 38.1 35.7 - 45.8 % [facility] MCV 86.6 82.6 - 94.4 [facility] MCH 26.4(L) 27.1 - 32.0 pg [facility] MCHC 30.4(L) 31.7 - 35.0 gm/dL [facility] Platelets 688(H) 145 - 357 x10(3)/[facility] RDWSD 60.5(H) 37.0 - 46.0 [facility] RDWCV 19.4(H) 11.5 - 14.1 % [facility] MPV 8.6 7.6 - 12.9 [facility] nRBC % Auto 0.0 % [facility] nRBC Abs Auto 0.000 0.000 - 0.000 x10(3)/[facility] Blood specimen (specimen) 10/03/2016 9:24 AM EDT 10/03/2016 9:27 AM EDT Narrative Resulting Agency Comment Spec In Lab Chris Jacobson MD HEMATOLOGY ORDERABLE S [facility] [place] [address] * (ABNORMAL) Reticulocyte Count (10/03/2016 9:24 AM EDT) Retic Ct % 3.1(H) 0.7 - 2.5 % [facility] Retic Ct Abs 0.140(H) 0.020 - 0.110 x10(6)/[facility] Immature Retic% 22.7(H) 0.5 - 13.8 % [facility] Reticulated Hgb 36.4 29.8 - 39.4 pg [facility] Blood specimen (specimen) 10/03/2016 9:24 AM EDT 10/03/2016 9:27 AM EDT Narrative Resulting Agency Comment Spec In Lab Chris Jacobson MD HEMATOLOGY ORDERABLE S Performing Organization Address [facility] Co de Phone Number [facility] [place] [address] * Ferritin (10/03/2016 9:24 AM EDT) Ferritin 400 30 - 400 ng/mL [facility] Comment: Pediatric reference ranges not verified at [facility], interpret with caution. Reference ranges for females greater than 50 years of age approach values for men, i.e., 30-400 ng/mL. Blood specimen (specimen) 10/03/2016 9:24 AM EDT 10/03/2016 9:27 AM EDT Narrative Resulting Agency Comment Spec In Lab Chris Jacobson MD CHEMISTRY ORDERABLES Performing Organization Address [facility] Co de Phone Number [facility] [place] [address] * Iron and TIBC (10/03/2016 9:24 AM EDT) [facility] Signature Iron 74 30 - 150 mcg/dL [facility] TIBC 358 250 - 450 mcg/dL [facility] Iron Saturation 21 20 - 50 % [facility] Blood specimen (specimen) 10/03/2016 9:24 AM EDT 10/03/2016 9:27 AM EDT Narrative Resulting Agency Comment Spec In Lab Chris Jacobson MD CHEMISTRY ORDERABLES Performing Organization Address [facility]/ZIP Co de Phone Number [facility] [place] [address] * (ABNORMAL) Comprehensive metabolic panel (non-fasting) (10/03/2016 9:24 AM EDT) [facility] Signature Glucose Lvl 106 65 - 199 mg/dL [facility] Comment:Diabetes: >=200 mg/d L plus symptoms BUN 14 8 - 18 mg/dL [facility] Creatinine 0.90 0.70 - 1.20 mg/dL [facility] Comment: Please note that the pediatric reference intervals supplied above were not validated at [facility]. Results from pediatric patients should be interpreted in conjunction to the patient's age, height and muscle mass. Sodium 139 135 - 145 mmol/L [facility] Potassium 4.2 3.5 - 5.0 mmol/L [facility] Comment: Please note: ??Patients with WBC >100,000 may have falsely elevated Potassium levels. ??For accurate Potassium quantification in these patients send serum separator tube (gold top) for subsequent determinations. ??Contact the Clinical Chemistry Laboratory if there are any questions. Chloride 97(L) 98 - 107 mmol/L [facility] CO2 22 22 - 31 mmol/L [facility] Anion Gap 20(H) 5 - 15 mmol/L [facility] Calcium 9.8 8.5 - 10.5 mg/dL [facility] Total Protein 7.5 6.1 - 8.0 gm/dL [facility] Albumin 4.3 3.2 - 5.2 gm/dL [facility] AST 13 0 - 30 unit/L [facility] ALT 16 0 - 30 unit/L [facility] Alk Phos 115(H) 40 - 104 unit/L [facility] Total Bilirubin <0.2(L) 0.2 - 1.3 mg/dL [facility] Bili, Direct <0.1 0.0 - 0.3 mg/dL [facility] Estimated GFR >60 >=60 [facility] Comment: This estimated GFR (eGFR) [...] the following links into your internet browser. [email or web address] Blood specimen (specimen) 10/03/2016 9:24 AM EDT 10/03/2016 9:27 AM EDT Narrative Resulting Agency Comment Spec In Lab Chris Jacobson MD CHEMISTRY ORDERABLES [facility] [place] [address] documented in this encounter Visit Diagnoses Diagnosis Thrombocytosis Essential thrombocythemia documented in this encounter Care Teams Turnstile Collector Relationship Specialty Start Date End Date Roxy Mehta MD [address] [facility] [place] [address] PCP - General 02/23/10 documented as of this encounter
--- OUTSIDE RECORDS SUMMARY | 2023-10-30 01:51 | XMS_ITS | Encounter Summary ---
Author Organization [facility] Address [facility] [place] [address] Care Team Providers Care Business Analytics Faculty Member Name Role Phone Roxy Mehta MD Primary Care Provider [phone] Encounter Details Date Type Department Care Team (Late st Contact Info) Description 03/11/2021 1:30 PM EST Office Visit Hematology/Oncology at [address] [id number] Chris Jacobson MD [facility] [place] [address] Flor Coleman APRN [address] [place] [address] DR HEMATOLOGY ONCOLOGY [place], [place] [id number] Iron deficiency anemia, unspecified iron deficiency anemia [...] this encounter Progress Notes * Flor Coleman, RESIDENTIAL SALES MANAGER - 03/11/2021 1:30 PM EST Subjective: Patient [...] been scheduled by her PCP. Vania returns [facility] today for routine follow-up. Today she says she is doing well. She has been feeling a little more fatigued in recent weeks, and thinks she needs some iron. She also loses her appetite when her iron is low. She has been taking itorally QOD. She says her PCP has already scheduled her at [facility] next week for Iron. In the future [...] fluticasone propionate (Flonase Allergy Relief) 50 mcg/actuation [place], Suspension ??? levothyroxine (Synthroid) 50 mcg Tablet [...] Exam Vitals reviewed. Exam conducted with a automotive tire testing supervisor present. Constitutional: General: She is not in [...] been scheduled [facility]. Persistent reactive [...] thrombocytosis documented in this encounter Care Teams Business Analytics Faculty Member Relationship Specialty Start Date End Date Roxy Mehta MD [address] [place] [address] PCP - General 02/23/10 documented as of this encounter
--- OUTSIDE RECORDS SUMMARY | 2023-10-30 01:51 | XMS_ITS | Encounter Summary ---
Author Organization [facility] [place] [address] Care Team Providers Care Pipe And Tank Fabricator Name Role Phone Roxy Mehta MD Primary Care Provider [phone] Encounter Details Date Type Department Care Team (Latest Contact Info) Description 09/02/2020 11:00 AM EDT TH Visit (TeleHealth) Hematology [place] [address] Wendy Espana MD [facility] DR HEMATOLOGY [place] [address] Recurrent pulmonary embolism; Iron deficiency anemia, unspecified [...] were not included. [facility] [place], [place] [address] THROMBOSIS CONSULTATION DATE OF VISIT 09/02/2020 Patient [...] epigastric discomfort since Thanksgiving last year. Around [place] she hasstarted to not feeling well, fatigue [...] 2015 small capsule study was done [place] [facility] which revealed no sourceof chronic blood losses. [...] ENDOSCOPY performed by Darlyn Escalante MD at [facility] ENDOSCOPY ??? PRO BONE MARROW ASPIRATION W/BX THROUGH SAME INCISION/SITE Left 03/18/2015 ([facility]G) BONE MARROW ASP PERFORMED W/BX THRU BX INCISION performed by Chris Jacobson MD at [facility] OSC ??? PRO BONE MARROW BX, NEEDLE/TROCAR Left 03/18/2015 ([facility] MSURG) BONE MARROW,BIOPSY performed by Chris Jacobson MD at [facility] OSC TKA Left MEDICATIONS Current Outpatient Medications on File Prior to Visit Medication Sig Dispense Refill ??? fluticasone propionate (Flonase Allergy Relief) 50 mcg/actuation [place], Suspension Daily ??? levothyroxine (Synthroid) 50 mcg [...] MD Verified: ??09/02/2020 11:32 ??Hematopathologist Performed at: ??-[facility] Dept. of Pathology, [place], [place] ADDITIONAL STUDIES TEST ?(REFERENCE RANGE) ?RESULT [...] antibodies ?(IgM </= 12.5 MPL) ?<9.4 MPL Mwzr-6-yfnterjqbkkv-1 antibodies ??(IgG </= 20 units) ?<9.4 units Fugu-8-sqshuxatfjso-1 antibodies ??(IgM </= 20 units) ?<9.4 units Homocysteine, random, plasma ?(</=15 umol/L) ?11 umol/L Factor V Leiden Mutation ?(normal) ? Not performed Prothrombin (86893 G->A) mutation (normal) ?Not performed### * Functional [...] in the setting of moderate hiatal hernia. [place] rectal malignancy should also be ruled out [...] Pardo APRN can see her up at [facility] for the lab testing. Otherwise Patricia has to come to [facility] for her testing. Wendy Espana MD documented in this encounter Plan of Treatment Not on file documented as of this encounter Visit Diagnoses Diagnosis Recurrent pulmonary embolism Other pulmonary embolism and infarction Iron deficiency anemia, unspecified iron deficiency anemia type Reactive thrombocytosis documented in this encounter Care Teams Pipe And Tank Fabricator Relationship Specialty Start Date End Date Roxy Mehta MD [address] [facility] [place] [address] PCP - General 02/23/10 documented as of this encounter
--- OUTSIDE RECORDS SUMMARY | 2023-10-30 01:51 | XMS_ITS | Encounter Summary ---
Author Organization Counts Include [facility] Address [facility] [place] [address] Care Team Providers Care Ambulance Officer Name Role Phone Roxy Mehta MD Primary Care Provider [phone] Encounter Details Date Type Department Care Team (Late st Contact Info) Description 07/13/2020 Telephone Dermatology at [facility] [address] [place] [address] Joyce Truong MD [facility] [place] [address] Social History Tobacco Use Types Packs/Day Years [...] on filedocumented in this encounter Care Teams Ambulance Officer Relationship Specialty Start Date End Date Roxy Mehta MD [address] [place] [address] PCP - General 02/23/10 documented as of this encounter
--- OUTSIDE RECORDS SUMMARY | 2023-10-30 01:51 | XMS_ITS | Encounter Summary ---
[place] [address] Care Team Providers Care Fuller Brush Worker Name Role Phone Roxy Mehta MD Primary Care Provider [phone] Encounter Details Date Type Department Care Team (Late st Contact Info) Description 05/11/2020 Telephone [place] [phone] Lacey Cole Social History Tobacco Use Types [...] on filedocumented in this encounter Care Teams Fuller Brush Worker Relationship Specialty Start Date End Date Roxy Mehta MD [address] [place], [place] [id number] PCP - General 02/23/10 documented as of this encounter
--- OUTSIDE RECORDS SUMMARY | 2023-10-30 01:51 | XMS_ITS | Encounter Summary ---
Author Organization [facility] [place] [address] Care Team Providers Care Senior Court Office Assistant Name Role Phone Roxy Mehta MD Primary Care Provider [phone] Reason for Visit * Reason Comments Follow-up Encounter Details Date Type Department Care Team (Late st Contact Info) Description 10/03/2016 10:45 AM EDT Office Visit Hematology [place] [address] Chris Jacobson MD [facility] DR HEMATOLOGY [place] [address] Samantha Pardo, [place] [facility] DR HEMATOLOGY [place] [address] Thrombocytosis; Iron deficiency anemia due to chronic [...] this encounter Progress Notes * Samantha Pardo, FARM MACHINERY SET UP MECHANIC - 10/03/2016 10:45 AM EDT Subjective: Patient ID: Patricia Liu is a 75 y.o. female here [...] it is quite inconveniene tto travel to [place]. She has requested PCP follow up in the immediate future and if needed - perhaps hematology follow up in the future at [facility]. Would recommend Q3 months CBC and iron studies. If requires ongoing IV iron we could help to get her set up in [facility] for this. Regarding her thrombocytosis -this is better after iron infusions, (back to [facility]) however stillelevated. Previous marrow in [...] (chronic) documented in this encounter Care Teams Senior Court Office Assistant Relationship Specialty Start Date End Date Roxy Mehta MD [address] [facility] [address] [place] [address] PCP - General 02/23/10 documented as of this encounter
--- OUTSIDE RECORDS SUMMARY | 2023-10-30 01:51 | XMS_ITS | Encounter Summary ---
Author Organization [facility] Address [facility] [place] [address] Care Team Providers Care Medical Office Clerk Name Role Phone Roxy Mehta MD Primary Care Provider [phone] Reason for Visit * Reason Comments Skin Check Encounter Details Date Type Department Care Team (Late st Contact Info) Description 01/03/2019 2:15 PM EDT Office Visit Dermatology at [address] [address] Joyce Beck MD [facility] [address] SKs (seborrheic keratoses); Seborrheic keratosis, inflamed; Solar [...] with surrounding erythema located on the right spiritism x1 C. Sun exposed areas: 0.3-0.6cm light-brown [...] MD. Joyce Beck MD Section of Dermatology [facility] documented in this encounter Plan of Treatment Not on file documented as of this encounter Visit Diagnoses Diagnosis SKs (seborrheic keratoses) Other seborrheic keratosis Seborrheic keratosis, inflamed Inflamed seborrheic keratosis Solar lentigo Other dyschromia Giordano angioma Nevus, non-neoplastic Skin tag Unspecified hypertrophic and atrophic condition of skin documented in this encounter Care Teams Medical Office Clerk Relationship Specialty Start Date End Date Roxy Mehta MD [address] [place] [address] PCP - General 02/23/10 documented as of this encounter
--- OUTSIDE RECORDS SUMMARY | 2023-10-30 01:52 | XMS_ITS | Encounter Summary ---
Author Organization [facility] [place] [address] Care Team Providers Care Movable Bulkhead Installer Name Role Phone Roxy Mehta MD Primary Care Provider [phone] Reason for Visit * Reason Comments Iron Deficiency Encounter Details Date Type Department Care Team (Latest Contact Info) Description 09/29/2016 8:12 AM EDT - 09/29/2016 11:59 PM EDT Hospital Encounter [place]ematology [place] [address] Iron deficiency anemia, unspecified iron deficiency anemia [...] Date fluticasone propionate (Flonase) 50 mcg/actuation [place], Suspension Daily 07/12/2012 cholecalciferol, Vitamin D3, 50 [...] mL/hr documented in this encounter Care Teams Movable Bulkhead Installer Relationship Specialty Start Date End Date Roxy Mehta MD [address] [place] [address] PCP - General 02/23/10 documented as of this encounter
--- OUTSIDE RECORDS SUMMARY | 2023-10-30 01:52 | XMS_ITS | Encounter Summary ---
Author Organization [facility] [place] [address] Care Team Providers Care Turbine Mechanic Name Role Phone Roxy Mehta MD Primary Care Provider [phone] Encounter Details Date Type Department Care Team (Latest Contact Info) Description 09/12/2016 1:24 PM EDT - 09/12/2016 1:36 PM EDT Hospital Encounter [place] [address] Iron deficiency anemia due to chronic blood [...] End Date fluticasone propionate (Flonase) 50 mcg/actuation [place], Suspension Daily 07/12/2012 cholecalciferol, Vitamin D3, 50 [...] T4, free (09/12/2016 1:47 PM EDT) [facility] Free T4 1.10 0.93 - 1.70 ng/dL [facility] Blood specimen (specimen) Venous Draw / Unknown 09/12/2016 1:47 PM EDT 09/12/2016 2:28 PM EDT Narrative Resulting Agency Comment Spec In Lab Samantha Pardo APRN CHEMISTRY ORDERABLES Performing Organization Address City/[facility]/ZIP Co de Phone Number [facility] [place] [address] * Scan, Peripheral Blood (09/12/2016 1:47 PM EDT) [facility] Plat Estimate Increased [facility] RBC Morphology Abnormal [facility] Microcytes 1-5 /HPF [facility] Hypochromia Slight [facility] Polychromasia Present >5/HPF [facility] Ovalocytes 1-5 /HPF [facility] Giant Platelets Less than 1 /HPF [facility] Blood specimen (specimen) 09/12/2016 1:47 PM EDT 09/12/2016 1:54 PM EDT Narrative Resulting Agency Comment Spec In Lab Samantha Pardo APRN HEMATOLOGY ORDERABLE S Performing Organization Address City/[facility]/ZIP Co de Phone Number [facility] [place] [address] * (ABNORMAL) Differential, Automated (09/12/2016 1:47 PM EDT) [facility] Neutrophils % 52.9 % [facility] Neutr Abs (ANC) 5.48 1.70 - 6.10 x10(3)/[facility] Lymphocytes % 36.1 % [facility] Lymphocytes Abs 3.7(H) 0.9 - 3.2 x10(3)/[facility] Monocytes % 6.9 % [facility] Monocyte Abs 0.7 0.3 - 0.9 x10(3)/[facility] Eosinophils % 2.7 % [facility] Eosinophils Abs 0.3 0.0 - 0.4 x10(3)/[facility] Basophils % 0.9 % [facility] Basophils Abs 0.1 0.0 - 0.1 x10(3)/[facility] Immature Gran % 0.50 % [facility] Comment: Immature granulocytes(IG's)percentage and absolute count will include metamyelocytes, myelocytes, and promyelocytes. Blood smears from CBCs yielding IG's will be scanned manually for concordance. If this scan disagrees with the automated IG or if promyelocytes are noted, a manual differential will be performed. [place] Gran Abs 0.05(H) 0.00 - 0.04 x10(3)/[facility] Blood specimen (specimen) 09/12/2016 1:47 PM EDT 09/12/2016 1:54 PM EDT Narrative Resulting Agency Comment Spec In Lab Samantha Pardo ASSOCIATE PROFESSOR OF ENGINEERING HEMATOLOGY ORDERABLE S [facility] [place] [address] * (ABNORMAL) Hemogram (09/12/2016 1:47 PM EDT) Pathologist [facility] [place] WBC 10.3(H) 4.0 - 9.5 x10(3)/[facility] RBC 3.34(L) 4.00 - 5.21 x10(6)/[facility] Hemoglobin 8.5(L) 11.7 - 15.5 gm/dL [facility] Hematocrit 28.3(L) 35.7 - 45.8 % [facility] MCV 84.7 82.6 - 94.4 fL [facility] MCH 25.4(L) 27.1 - 32.0 pg [facility] MCHC 30.0(L) 31.7 - 35.0 gm/dL [facility] Platelets 928(H) 145 - 357 x10(3)/[facility] RDWSD 47.8(H) 37.0 - 46.0 [facility] RDWCV 15.8(H) 11.5 - 14.1 % [facility] MPV 8.4 7.6 - 12.9 fL [facility] nRBC % Auto 0.0 % [facility] nRBC Abs Auto 0.000 0.000 - 0.000 x10(3)/[facility] Blood specimen (specimen) 09/12/2016 1:47 PM EDT 09/12/2016 1:54 PM EDT Narrative Resulting Agency Comment Spec In Lab Samantha Pardo APRN HEMATOLOGY ORDERABLE S [facility] [place] [address] * (ABNORMAL) TSH (09/12/2016 1:47 PM EDT) TSH 4.27(H) 0.27 - 4.20 mlU/ML [facility] Blood specimen (specimen) 09/12/2016 1:47 PM EDT 09/12/2016 1:54 PM EDT Narrative Resulting Agency Comment Spec In Lab Samantha Pardo ASSOCIATE PROFESSOR OF ENGINEERING CHEMISTRY ORDERABLES [facility] [place] [address] * Lactate Dehydrogenase (09/12/2016 1:47 PM EDT) LDH 163 110 - 220 unit/L [facility] Blood specimen (specimen) 09/12/2016 1:47 PM EDT 09/12/2016 1:54 PM EDT Narrative Resulting Agency Comment Spec In Lab Samantha Pardo APRN CHEMISTRY ORDERABLES Performing Organization Address [facility]/ZIP Co de Phone Number [facility] [place] [address] * (ABNORMAL) Reticulocyte Count (09/12/2016 1:47 PM EDT) Pathologist [facility] [place] Retic Ct % 4.4(H) 0.7 - 2.5 % [facility] Retic Ct Abs 0.150(H) 0.020 - 0.110 x10(6)/mc L [facility] Immature Retic% 27.6(H) 0.5 - 13.8 % [facility] Reticulated Hgb 22.5(L) 29.8 - 39.4 pg [facility] Blood specimen (specimen) 09/12/2016 1:47 PM EDT 09/12/2016 1:54 PM EDT Narrative Resulting Agency Comment Spec In Lab Samantha Pardo APRN HEMATOLOGY ORDERABLE S Performing Organization Address [facility]/ZIP Co de Phone Number [facility] [place] [address] * (ABNORMAL) Iron and TIBC (09/12/2016 1:47 PM EDT) Iron 20(L) 30 - 150 mcg/dL [facility] TIBC 456(H) 250 - 450 mcg/dL [facility] Iron Saturation 4(L) 20 - 50 % [facility] Blood specimen (specimen) 09/12/2016 1:47 PM EDT 09/12/2016 1:54 PM EDT Narrative Resulting Agency Comment Spec In Lab Samantha Pardo APRN CHEMISTRY ORDERABLES Performing Organization Address [facility] Co de Phone Number [facility] [place] [address] * (ABNORMAL) Ferritin (09/12/2016 1:47 PM EDT) [facility] Ferritin 25(L) 30 - 400 ng/mL [facility] Comment: Pediatric reference ranges not verified at [facility], interpret with caution. Reference ranges for females greater than 50 years of age approach values for men, i.e., 30-400 ng/mL. Blood specimen (specimen) 09/12/2016 1:47 PM EDT 09/12/2016 1:54 PM EDT Narrative Resulting Agency Comment Spec In Lab Samantha Pardo APRN CHEMISTRY ORDERABLES Performing Organization Address [facility] Co de Phone Number [facility] [place] [address] * (ABNORMAL) Comprehensive metabolic panel (non-fasting) (09/12/2016 1:47 PM EDT) [facility] Glucose Lvl 90 65 - 199 mg/dL [facility] Comment:Diabetes: >=200 mg/d L plus symptoms BUN 22(H) 8 - 18 mg/dL [facility] Creatinine 0.89 0.70 - 1.20 mg/dL [facility] Comment: Please note that the pediatric reference intervals supplied above were not validated at [facility]. Results from pediatric patients should be interpreted in conjunction to the patient's age, height and muscle mass. Sodium 139 135 - 145 mmol/L [facility] Potassium 4.2 3.5 - 5.0 mmol/L [facility] Comment: Please note: ??Patients with WBC >100,000 may have falsely elevated Potassium levels. ??For accurate Potassium quantification in these patients send serum separator tube (gold top) for subsequent determinations. ??Contact the Clinical Chemistry Laboratory if there are any questions. Chloride 100 98 - 107 mmol/L [facility] CO2 20(L) 22 - 31 mmol/L [facility] Anion Gap 19(H) 5 - 15 mmol/L [facility] Calcium 9.5 8.5 - 10.5 mg/dL [facility] Total Protein 7.4 6.1 - 8.0 gm/dL [facility] Albumin 4.4 3.2 - 5.2 gm/dL [facility] AST 19 0 - 30 unit/L [facility] ALT 13 0 - 30 unit/L [facility] Alk Phos 131(H) 40 - 104 unit/L [facility] Total Bilirubin <0.2(L) 0.2 - 1.3 mg/dL [facility] Bili, Direct <0.1 0.0 - 0.3 mg/dL [facility] Estimated GFR >60 >=60 [facility] Comment: This estimated GFR (eGFR) [...] the following links into your internet browser. [email or web address] [email or web address] [email or web address] [email or web address] Blood specimen (specimen) 09/12/2016 1:47 PM EDT 09/12/2016 1:54 PM EDT Narrative Resulting Agency Comment Spec In Lab Samantha Pardo APRN CHEMISTRY ORDERABLES [facility] [place] [address] documented in this encounter Visit Diagnoses Diagnosis Iron deficiency anemia due to chronic blood loss Iron deficiency anemia secondary to blood loss (chronic) documented in this encounter Care Teams Turbine Mechanic Relationship Specialty Start Date End Date Roxy Mehta MD [address] [place] [address] PCP - General 02/23/10 documented as of this encounter
--- OUTSIDE RECORDS SUMMARY | 2023-10-30 01:52 | XMS_ITS | Encounter Summary ---
Author Organization [facility] [place] [address] Care Team Providers Care Architectural Draftsperson Name Role Phone Roxy Mehta MD Primary Care Provider [phone] Encounter Details Date Type Department Care Team (Late st Contact Info) Description 03/26/2015 Orders Only [place] [address] Argelia Teresa MD [facility] HEMATOLGY/[place] [address] Social History Tobacco Use Types Packs/Day Years [...] on filedocumented in this encounter Care Teams Architectural Draftsperson Relationship Specialty Start Date End Date Roxy Mehta MD [address] [place], [place] [id number] PCP - General 02/23/10 documented as of this encounter
--- OUTSIDE RECORDS SUMMARY | 2023-10-30 01:52 | XMS_ITS | Encounter Summary ---
Author Organization [facility] [address] Care Team Providers Care Scientific Research Manager Name Role Phone Roxy Mehta MD Primary Care Provider [phone] Reason for Visit * Auth/Cert Specialty Diagnoses / Procedures Referred By Kishore t Referred To Contact Diagnoses FE Anemia Procedures PRG GI TRACT IMAGING, INTRALUMINAL, ESOPHAGUS THROUGH ILEUM, W INTERP & REPORT VIDEO CAPSULE ENDOSCOPY Referral ID Status Reason Start Date Expiration Date Visits Re quested Visits Authorized [id number] 1 1 Encounter Details Date Type Department Care Team (Late st Contact Info) Description 09/24/2015 7:30 AM EDT - 09/24/2015 8:00 AM EDT [place] [address] Darlyn Escalante MD [facility] [place] [address] VIDEO CAPSULE ENDOSCOPY (WRVU 2.24) Social History [...] End Date fluticasone propionate (Flonase) 50 mcg/actuation [place], Suspension Daily 07/12/2012 aspirin 81 mg Tablet, [...] Escalante MD - 09/25/2015 8:28 AM EDT [facility] [place] Note Patient Name: Patricia Liu : [id number] MR#: [id number] Case Date: 09/24/2015 Surgeon: Surgeon(s) and Role: [...] VIDEO CAPSULE ENDOSCOPY (09/24/2015 7:41 AM EDT) Pathologist [facility] [place] VIDEO CAPSULE ENDOSCOPY [facility] Endoscopy ___ Procedure Date: 09/24/2015 7:41 AM ? Patient Name: Patricia Liu ? N: [id number] ? Date of : 1940 ? Age: 74 ? Order #: [id number] ? Instrument Name: ? ___ Procedure: ? [...] on filedocumented in this encounter Care Teams Scientific Research Manager Relationship Specialty Start Date End Date Roxy Mehta MD [address] [place] [address] PCP - General 02/23/10 documented as of this encounter
--- OUTSIDE RECORDS SUMMARY | 2023-10-30 01:52 | XMS_ITS | Encounter Summary ---
Author Organization [facility] Address [facility] [place] [address] Care Team Providers Care Elementary Librarian Name Role Phone Roxy Mehta MD Primary Care Provider [phone] Reason for Visit * Auth/Cert Specialty Diagnoses / Procedures Referred By Kishore t Referred To Contact Diagnoses Thrombocythemia Procedures PRO BONE MARROW ASPIRATION W/BX THROUGH SAME INCISION/SITE PRO BONE MARROW BX, NEEDLE/TROCAR (OSC MSURG) BONE MARROW ASP PERFORMED W/BX THRU BX INCISION (OSC MSURG) BONE MARROW,BIOPSY Referral ID Status Reason Start Date Expiration Date Visits Re quested Visits Authorized [id number] 1 1 Encounter Details Date Type Department Care Team (Latest Contact Info) Description 03/18/2015 10:08 AM EST - 03/18/2015 1:11 PM [facility] Hospital Encounter Outpatient [place] [id number] Chris Jacobson MD [facility] DR HEMATOLOGY [place] [address] Discharge Disposition: Home Social History Tobacco Use [...] 5pm or on a weekend: Call the [facility] stretcher leveler operator helper at and ask for the physician implementation consultant covering for your doctor. Instructions following sedation [...] drainage occurs, please contact your M. D. [facility] [address] ??? [place] [address] ??? [phone] ??? [email or web address] ??? [facility] ??? [facility] ??? [facility] documented in this encounter Medications at Time of Discharge Medication Sig Dispensed Refills Start Date End Date fluticasone propionate (Flonase) 50 mcg/actuation [place], Suspension Daily 07/12/2012 aspirin 81 mg Tablet, [...] procedure. Discharge to: Home Pita Garland, MSN, TILE INSTALLER Nurse Practitioner Section of Hematology/Oncology [facility] Office phone: documented in this encounter Procedure Notes * Pita Garland APRN - 03/18/2015 12:33 PM ESTProcedure(s): BONE MARROW ASPIRATION W BIOPSY Pre-Procedure Diagnose(s): Thrombocytosis BONE MARROW BIOPSY AND ASPIRATION PROCEDURE NOTE Bone Marrow Biopsy & Aspiration with Conscious Sedation Date/Time of Procedure: 03/18/15 at 12:30pm Proceduralist: PITA GARLAND APRN, RN, MS, COMPUTER SECURITY SPECIALIST DIAGNOSIS: Thrombocytosis Pre-Procedure: (x) Consent signed and [...] with Physician as instructed. Pita Garland, MSN, TILE INSTALLER Nurse Practitioner Section of Hematology/Oncology [facility] Office phone: documented in this encounter Plan [...] chromo report acquired (03/18/2015 3:28 PM EST) [facility] Cytogenetics Acquired Report Final Report ? [id number] Specimen Type: Bone Marrow Specimen Condition: ~3ml, [...] clinical presentation and other laboratory testing results. 04.01.15 (Electronic Signature) Verified By: Ward SALCIDO, Ph.D., [place] [facility] Director, Cytogenetics [facility] 03/18/2015 3:28 PM EST Chris Jacobson MD HEMATOLOGY ORDERABLE S [facility] * Bone Marrow Final Report (03/18/2015 12:31 PM EST) FINAL DIAGNOSIS (AP) [id number] ?Location: The signing pathologist has (i) examined the relevant preparation(s) for the specimen(s) and (ii) rendered or confirmed the diagnosis(es). . ?Molecular Genetics RESULTS DIAGNOSIS 1. Thrombocytosis, by history 2. Normocellular marrow with maturing trilineage hematopoiesis. No morphologic features of involvement by a myeloproliferative neoplasm ??are seen. Cytogenetics and molecular studies pending. Myeloid Sequencing Panel (54-Gene Panel) SPECIMEN: ??[id number] Analysis: ??Examination of DNA extracted from peripheral blood or bone marrow aspirates for somatic mutation analysis. Results: ??This sample failed QC metrics post-sequencing. ?? If testing is warranted as per clinical indication, please contact the attending pathologist in order to resubmit an alternative tissue sample. Reviewed by: Ana Betts, PhD, Genomic Digital Media Analyst ?04/10/15 16:41 Reviewed by: Tre Whitlock, PhD, [facility], Director-[facility] ([facility], 04/13/15 15:34) Verified date: ??04/24/15 ??JERZY Verified by: ?Monica SALCIDO, Josesito ?(Electronic Signature) ? Bone Marrow Final DIAGNOSIS 1. Thrombocytosis, by history 2. Normocellular marrow with maturing trilineage hematopoiesis. No morphologic features of involvement by a myeloproliferative neoplasm ??are seen. Cytogenetics and molecular studies pending. 03/19/15 [facility] 03/20/15 Verified by: ? Josesito Anderson [...] with results. PERIPHERAL SMEAR WBC 8.31K/ul; RBC 4.83q418/ul; Hgb 13.0; MCV 84.2; RDW 14.1; PLT [...] for Study: ?? Evaluate for myeloproliferative disorder 04/24/2015 4:46 PM EST [facility] 03/18/2015 12:3 1 PM EST Chris Jacobson MD PATHOLOGY/CYTOLOGY O RDERABLES Performing Organization Address City/[facility]/ZIP Co de Phone Number EDNA MAKALEXANDRUIUM [facility] [place] [address] * Iron Stain, Bone Marrow (03/18/2015 12:31 PM EST) Iron Stain BM See Comment CERN ER MILLENNIUM Comment:See Bone Marrow Repo rt [id number] under Hematopathology Reports. Bone marrow specimen (specimen) 03/18/2015 12:31 PM EST 03/18/2015 12:53 PM EST Narrative Resulting Agency Comment Spec In Lab Chris Jacobson MD HEMATOLOGY ORDERABLE S Performing Organization Address City/[facility]/ZIP Co de Phone Number CERNER MILLENNIUM * Differential, Automated (03/18/2015 10:00 AM [...] Xiomara Carmona, RN)1219 (Given - Provider: Xiomara Carmona RN) [...] Xiomara Carmona, MARCO)1216 (Given - Provider: Xiomara Carmona, RN) documented in this encounter Care Teams Elementary Librarian Relationship Specialty Start Date End Date Roxy Mehta MD [address] [facility] [address] [place] [address] PCP - General 02/23/10 documented as of this encounter
--- OUTSIDE RECORDS SUMMARY | 2023-10-30 01:52 | XMS_ITS | Encounter Summary ---
Author Organization [facility] [place] [address] Care Team Providers Care Buffing And Polishing Wheel Repairer Name Role Phone Roxy Mehta MD Primary Care Provider [phone] Encounter Details Date Type Department Care Team (Latest Contact Info) Description 09/22/2016 8:14 AM EDT - 09/22/2016 11:59 PM EDT Hospital Encounter Hematology [place] [address] Anemia, unspecified type Discharge Disposition: Home Social [...] End Date fluticasone propionate (Flonase) 50 mcg/actuation [place], Suspension Daily 07/12/2012 cholecalciferol, Vitamin D3, 50 [...] mL/hr documented in this encounter Care Teams Buffing And Polishing Wheel Repairer Relationship Specialty Start Date End Date Roxy Mehta MD [address] [place] [address] PCP - General 02/23/10 documented as of this encounter
--- OUTSIDE RECORDS SUMMARY | 2023-10-30 01:52 | XMS_ITS | Encounter Summary ---
Author Organization [facility] [place] [address] Care Team Providers Care Lining Stamper Name Role Phone Roxy Mehta MD Primary Care Provider [phone] Encounter Details Date Type Department Care Team (Latest Contact Info) Description 09/12/2016 1:37 PM EDT - 09/12/2016 11:59 PM EDT Hospital Encounter Hematology [place] [address] Discharge Disposition: Home Social History Tobacco Use [...] End Date fluticasone propionate (Flonase) 50 mcg/actuation [place], Suspension Daily 07/12/2012 cholecalciferol, Vitamin D3, 50 [...] Random 6 0 - 29 mcg/mg Cr [facility] Comment: Reference Ranges: <30 [...] 362 U Albumin Conc, Random 8.2 mg/L [facility] U Creatinine 142 mg/dL [facility] Urine specimen (specimen) Urine / Unknown 09/12/2016 1:50 PM EDT 09/12/2016 2:01 PM EDT Narrative Resulting Agency Comment Spec In Lab Roxy Mehta MD URINE ORDERABLES [facility] [place] [address] * (ABNORMAL) Hemoglobin A1c (09/12/2016 1:47 PM EDT) Hemoglobin A1C 5.9(H) 4.3 - 5.6 % [facility] Comment: Reference Range: 4.3 [...] S67-74 Est Avg Gluc See note mg/dL [facility] Comment: Estimated Average Glucose [...] into estimated average glucose values. ??Diabetes Care 2008:31(8):2231-7529. Blood specimen (specimen) Venous Draw / Unknown 09/12/2016 1:47 PM EDT 09/12/2016 1:54 PM EDT Narrative Resulting Agency Comment Spec In Lab Roxy Mehta MD CHEMISTRY ORDERABLES Performing Organization Address City/State/[facility] Co de Phone Number [facility] [place] [address] * (ABNORMAL) Lipid Panel (09/12/2016 1:47 PM EDT) Chol, Total 291(H) <=239 mg/dL [facility] Triglycerides 180 <=199 mg/dL [facility] HDL 72 >=40 mg/dL [facility] LDL Cholesterol 183 <=190 mg/dL [facility] Chol/HDL Ratio 4.0 ratio [facility] Lipid Interpretation See Note [facility] Comment: Lipid management should be guided by a patient? s ASCVD risk, goals and preferences. ACC/AHA Guidelines recommend high intensity statin if clinical ASCVD or LDL greater than or equal to 190 mg/dL. http://Glide PharmaurUjogo.com/KGM-FHP-Lqcwzptoa Adults aged 40-75 with LDL 70-189 mg/dL should have their 10 year ASCVD risk estimated with the ACC/AHA ASCVD risk commercial estimator http://tools.acc.org/ESBMV-Wqeh-Xefknyyct/ Statin should be discussed if risk greater [...] Mehta MD CHEMISTRY ORDERABLES Performing Organization Address City/State/[facility] Co de Phone Number [facility] [place] [address] documented in this encounter Visit Diagnoses Not on filedocumented in this encounter Care Teams Lining Stamper Relationship Specialty Start Date End Date Roxy Mehta MD [address] [place] [address] PCP - General 02/23/10 documented as of this encounter
--- OUTSIDE RECORDS SUMMARY | 2023-10-30 01:52 | XMS_ITS | Encounter Summary ---
Author Organization [facility] [place] [address] Care Team Providers Care Cage Tender Name Role Phone Roxy Mehta MD Primary Care Provider [phone] Reason for Visit * Auth/Cert Specialty Diagnoses / Procedures Referred By Kishore t Referred To Contact Diagnoses FE Anemia Procedures PRG GI TRACT IMAGING, INTRALUMINAL, ESOPHAGUS THROUGH ILEUM, W INTERP & REPORT VIDEO CAPSULE ENDOSCOPY Referral ID Status Reason Start Date Expiration Date Visits Re quested Visits Authorized [id number] 1 1 Encounter Details Date Type Department Care Team (Latest Contact Info) Description 09/24/2015 7:30 AM EDT - 09/24/2015 4:03 PM EDT Hospital [place] [address] Darlyn Escalante MD [facility] [place] [address] Discharge Disposition: Home Social History Tobacco Use [...] End Date fluticasone propionate (Flonase) 50 mcg/actuation [place], Suspension Daily 07/12/2012 aspirin 81 mg Tablet, [...] Escalante MD - 09/25/2015 8:28 AM EDT [facility] [place] Note Patient Name: Patricia Liu : [id number] MR#: [id number] Case Date: 09/24/2015 Surgeon: Surgeon(s) and Role: [...] (09/24/2015 7:41 AM EDT) VIDEO CAPSULE ENDOSCOPY [facility] Endoscopy ___ Procedure Date: 09/24/2015 7:41 AM ? Patient Name: Patricia Liu ? Date of : 1940 ? Age: 74 ? Order #: [id number] ? Instrument Name: ? ___ Procedure: ? [...] on filedocumented in this encounter Care Teams Cage Tender Relationship Specialty Start Date End Date Roxy Mehta MD [address] [place] [address] PCP - General 02/23/10 documented as of this encounter
--- OUTSIDE RECORDS SUMMARY | 2023-10-30 01:52 | XMS_ITS | Encounter Summary ---
Author Organization [facility]ly [place] [address] Care Team Providers Care Sawmill Supervisor Name Role Phone Roxy Mehta MD Primary Care Provider [phone] Encounter Details Date Type Department Care Team (Late st Contact Info) Description 07/26/2016 Ancillary Procedure [place] [id number] Roxy Mehta MD [address] [place] [address] Social History Tobacco Use Types [...] CT Chest (07/26/2016 12:00 AM EDT) Narrative [facility] - 05/07/2020 4:40 PM EST This exam is auto-finalizing. It's purpose is for storage only. Roxy Mehta MD [facility] FILM LIBRARY ORD ERABLES [place], [place] documented in this encounter Visit Diagnoses Not on filedocumented in this encounter Care Teams Sawmill Supervisor Relationship Specialty Start Date End Date Roxy Mehta MD [address] [place] [address] PCP - General 02/23/10 documented as of this encounter
--- OUTSIDE RECORDS SUMMARY | 2023-10-30 01:52 | XMS_ITS | Encounter Summary ---
Author Organization [facility] [place] [address] Care Team Providers Care Pumper Gauger Apprentice Name Role Phone Roxy Mehta MD Primary Care Provider Reason for Visit * Reason Comments Advice Only * Consultation (Routine) - Closed Specialty Diagnoses / Procedures Referred By Contoziel t Referred To Contact Hematology and Oncology Diagnoses elevated platelet count Roxy Mehta MD [address] [place] [address] [facility] Hem Onc [address] [place] [address] Referral ID Status Reason Start Date Expiration Date V isits Requested Visits Authorized [id number] Closed Consult, Test & Treat Connection [facility] 02/05/2015 02/05/2016 1 1 Encounter Details Date Type Department Care Team (Late st Contact Info) Description 02/23/2015 9:45 AM EST Office Visit [place]ematology [place] [address] Chris Jacobson MD [facility] [address] [place] [address] Samantha Pardo APRN [facility] [address] [place] [address] Argelia Feldman MD [facility] HEMATOLGY/[place] [address] Thrombocytosis Social History Tobacco Use [...] ARGELIA FELDMAN MD Hematology Fellow CC. ROXY DOBBERTIN, MD ++++++++++++++++++++++++++++++++++++++++++++++++++++++++++++++++++++++++++++++++ + Addendum: Ferritin returned 11 [...] report acquired (02/23/2015 12:20 PM EST) Pathologist [facility] Cytogenetics Acquired Report Final Report Specimen Type: [...] dual-fusion BCR-ABL1 fusion probe associated with t(9;22) ([employer] revealed 0% of the cells with a signal pattern consistent with the BCR-ABL1 fusion gene in 220 cells. This was within the normal limits (<1.0%). Thus, there was no evidence of the BCR-ABL1 fusion. ---Recommendation- -- Correlation with clinical and pathological studies is suggested. ---Disclaimer--- The FISH test was developed and its performance characteristics were determined by the [facility] ([facility] Cytogenetics Laboratory as required by CLIA? 88 [...] the test? s accuracy and precision. The [facility] Cytogenetics Laboratory is certified under the CLIA? 88 as qualified to perform high complexity clinical laboratory testing. 11.26.15 (Electronic Signature) Verified By: Ward SALCIDO, Ph.D., Liming Director, Cytogenetics [facility] 02/23/2015 12:2 0 PM EST Argelia Feldman MD HEMATOLOGY ORDERABLE S [facility] * Miscellaneous Lab request (02/23/2015 11:30 AM EST) Pathologist [facility] Lab Result Request received in lab. [facility] Blood specimen (specimen) 02/23/2015 11:30 AM EST 02/23/2015 11:42 AM EST Narrative Resulting Agency Comment Spec In Lab Chris Jacobson MD HEMATOLOGY ORDERABLE S Performing Organization Address [facility] Co de Phone Number [facility] * (ABNORMAL) Ferritin (02/23/2015 11:30 AM EST) Ferritin 11(L) 30 - 400 ng/mL [facility] Comment: Pediatric reference ranges not verified at [facility], interpret with caution. Reference ranges for females greater than 50 years of age approach values for men, i.e., 30-400 ng/mL. Blood specimen (specimen) 02/23/2015 11:30 AM EST 02/23/2015 11:40 AM EST Narrative Resulting Agency Comment Spec In Lab Chris Jacobson MD CHEMISTRY ORDERABLES Performing Organization Address [facility] Co de Phone Number [facility] * (ABNORMAL) Iron and TIBC (02/23/2015 11:30 AM EST) Iron 46 30 - 150 mcg/dL [facility] TIBC 449 250 - 450 mcg/dL [facility] Iron Saturation 10(L) 20 - 50 % [facility] Blood specimen (specimen) 02/23/2015 11:30 AM EST 02/23/2015 11:40 AM EST Narrative Resulting Agency Comment Spec In Lab Chris Jacobson MD CHEMISTRY ORDERABLES Performing Organization Address [facility] Co de Phone Number [facility] * (ABNORMAL) Comprehensive metabolic panel (non-fasting) (02/23/2015 11:30 AM EST) Glucose Lvl 111 65 - 199 mg/dL [facility] Comment:Diabetes: >=200 mg/d L plus symptoms BUN 21(H) 8 - 18 mg/dL [facility] Creatinine 0.80 0.70 - 1.20 mg/dL [facility] Comment: Please note that the pediatric reference intervals supplied above were not validated at [facility]. Results from pediatric patients should be interpreted [...] the following links into your internet browser. http://[employer]/DHnkdep http://[employer]/DHMCnkf Blood specimen (specimen) 02/23/2015 11:30 AM EST 02/23/2015 11:40 AM EST Narrative Resulting Agency Comment Spec In Lab Chris Jacobson MD CHEMISTRY ORDERABLES Performing Organization Address City/State/[facility] Co de Phone Number [facility] documented in this encounter Visit Diagnoses Diagnosis Thrombocytosis Essential thrombocythemia documented in this encounter Care Teams Pumper Gauger Apprentice Relationship Specialty Start Date End Date Roxy Mehta MD [address] [place] [address] PCP - General 02/23/10 documented as of this encounter
--- OUTSIDE RECORDS SUMMARY | 2023-10-30 01:52 | XMS_ITS | Encounter Summary ---
Author Organization [facility] [place] [address] Care Team Providers Care Health Consultant Name Role Phone Roxy Mehta MD Primary Care Provider [phone] Encounter Details Date Type Department Care Team (Late st Contact Info) Description 09/07/2016 Orders Only Hematology [place] [address] Samantha Pardo, TAX EXPERT [facility] [address] [place] [address] Iron deficiency anemia due to chronic blood [...] EDT) TSH 4.27(H) 0.27 - 4.20 mlU/ML [facility] Blood specimen (specimen) 09/12/2016 1:47 PM EDT 09/12/2016 1:54 PM EDT Narrative Resulting Agency Comment Spec In Lab Samantha Pardo APRN CHEMISTRY ORDERABLES Performing Organization Address [facility]/ZIP Co de Phone Number [facility] [place] [address] * Lactate Dehydrogenase (09/12/2016 1:47 PM EDT) LDH 163 110 - 220 unit/L [facility] Blood specimen (specimen) 09/12/2016 1:47 PM EDT 09/12/2016 1:54 PM EDT Narrative Resulting Agency Comment Spec In Lab Samantha Pardo TAX EXPERT CHEMISTRY ORDERABLES Performing Organization Address [facility] de Phone Number [facility] [place] [address] * (ABNORMAL) Reticulocyte Count (09/12/2016 1:47 PM EDT) Pathologist [facility] Retic Ct % 4.4(H) 0.7 - 2.5 % [facility] Retic Ct Abs 0.150(H) 0.020 - 0.110 x10(6)/mc L [facility] Immature Retic% 27.6(H) 0.5 - 13.8 % [facility] Reticulated Hgb 22.5(L) 29.8 - 39.4 pg [facility] Blood specimen (specimen) 09/12/2016 1:47 PM EDT 09/12/2016 1:54 PM EDT Narrative Resulting Agency Comment Spec In Lab Samantha Pardo TAX EXPERT HEMATOLOGY ORDERABLE S Performing Organization Address [facility]/ZIP Co de Phone Number [facility] [place] [address] * (ABNORMAL) Iron and TIBC (09/12/2016 1:47 PM EDT) Iron 20(L) 30 - 150 mcg/dL [facility] TIBC 456(H) 250 - 450 mcg/dL [facility] Iron Saturation 4(L) 20 - 50 % [facility] Blood specimen (specimen) 09/12/2016 1:47 PM EDT 09/12/2016 1:54 PM EDT Narrative Resulting Agency Comment Spec In Lab Samantha Pardo TAX EXPERT CHEMISTRY ORDERABLES Performing Organization Address [facility] Co de Phone Number [facility] [place] [address] * (ABNORMAL) Ferritin (09/12/2016 1:47 PM EDT) Ferritin 25(L) 30 - 400 ng/mL [facility] Comment: Pediatric reference ranges not verified at [facility], interpret with caution. Reference ranges for females greater than 50 years of age approach values for men, i.e., 30-400 ng/mL. Blood specimen (specimen) 09/12/2016 1:47 PM EDT 09/12/2016 1:54 PM EDT Narrative Resulting Agency Comment Spec In Lab Samantha Pardo TAX EXPERT CHEMISTRY ORDERABLES Performing Organization Address [facility] Co de Phone Number [facility] [place] [address] * (ABNORMAL) Comprehensive metabolic panel (non-fasting) (09/12/2016 1:47 PM EDT) [facility] Glucose Lvl 90 65 - 199 mg/dL [facility] Comment:Diabetes: >=200 mg/d L plus symptoms BUN 22(H) 8 - 18 mg/dL [facility] Creatinine 0.89 0.70 - 1.20 mg/dL [facility] Comment: Please note that the pediatric reference intervals supplied above were not validated at [facility]. Results from [...] questions. Chloride 100 98 - 107 mmol/L [facility] CO2 20(L) 22 - 31 mmol/L [facility] Anion Gap 19(H) 5 - 15 mmol/L [facility] Calcium 9.5 8.5 - 10.5 mg/dL [facility] Total Protein 7.4 6.1 - 8.0 gm/dL [facility] Albumin 4.4 3.2 - 5.2 gm/dL [facility] AST 19 0 - 30 unit/L [facility] ALT 13 0 - 30 unit/L [facility] Alk Phos 131(H) 40 - 104 unit/L [facility] Total Bilirubin <0.2(L) 0.2 - 1.3 mg/dL [facility] Bili, Direct <0.1 0.0 - 0.3 mg/dL [facility] Estimated GFR >60 >=60 [facility] [...] the following links into your internet browser. [email or web address]/DHnkdep [email or web address]/DHMCnkf Blood specimen (specimen) 09/12/2016 1:47 PM EDT 09/12/2016 1:54 PM EDT Narrative Resulting Agency Comment Spec In Lab Samantha Pardo TAX EXPERT CHEMISTRY ORDERABLES [facility] [place] [address] documented in this encounter Visit Diagnoses Diagnosis Iron deficiency anemia due to chronic blood loss Iron deficiency anemia secondary to blood loss (chronic) documented in this encounter Care Teams Health Consultant Relationship Specialty Start Date End Date Roxy Mehta MD [address] [place] [address] PCP - General 02/23/10 documented as of this encounter
--- OUTSIDE RECORDS SUMMARY | 2023-10-30 01:52 | XMS_ITS | Encounter Summary ---
Author Organization [facility] Address [facility] [place] [address] Care Team Providers Care Medication Aide Name Role Phone Roxy Mehta MD Primary Care Provider [phone] Reason for Visit * Auth/Cert Specialty Diagnoses / Procedures Referred By Kishore rodriguez Referred To Contact Diagnoses Thrombocythemia Procedures PRO BONE MARROW ASPIRATION W/BX THROUGH SAME INCISION/SITE PRO BONE MARROW BX, NEEDLE/TROCAR (OSC MSURG) BONE MARROW ASP PERFORMED W/BX THRU BX INCISION (OSC MSURG) BONE MARROW,BIOPSY Referral ID Status Reason Start Date Expiration Date Visits Re quested Visits Authorized [id number] 1 1 Encounter Details Date Type Department Care Team (Late st Contact Info) Description 03/18/2015 11:30 AM EST - 03/18/2015 12:30 PM EST Surgery [place] [phone] Chris Jacobson MD [facility] DR HEMATOLOGY [place] [address] (OSC MSURG) BONE MARROW ASP PERFORMED W/BX [...] 5pm or on a weekend: Call the [facility] skimmer scoop operator at and ask for the physician radioisotope production operator covering for your doctor. Instructions following sedation [...] occurs, please contact your M. D. [address] [facility] [address] ??? [place] [address] ??? [phone] ??? [email or web address] [employer] ??? [facility] ??? [facility] ??? [facility] documented in this encounter Medications at Time of Discharge Medication Sig Dispensed Refills Start Date End Date fluticasone propionate (Flonase) 50 mcg/actuation [place], Suspension Daily 07/12/2012 aspirin 81 mg Tablet, [...] procedure. Discharge to: Home Pita Garland, MSN, [employer] Nurse Practitioner Section of Hematology/Oncology [facility] Office phone: documented in this encounter Procedure Notes * Pita Garland APRN - 03/18/2015 12:33 PM ESTProcedure(s): BONE MARROW ASPIRATION W BIOPSY Pre-Procedure Diagnose(s): Thrombocytosis BONE MARROW BIOPSY AND ASPIRATION PROCEDURE NOTE Bone Marrow Biopsy & Aspiration with Conscious Sedation Date/Time of Procedure: 03/18/15 at 12:30pm Proceduralist: PITA GARLAND APRN, RN, MS, SIGNAL INTELLIGENCE/ELECTRONIC WARFARE DIAGNOSIS: Thrombocytosis Pre-Procedure: (x) Consent signed and [...] with Physician as instructed. Pita Garland, MSN, [employer] Nurse Practitioner Section of Hematology/Oncology [facility] Office phone: documented in this encounter Plan [...] report acquired (03/18/2015 3:28 PM EST) Pathologist [facility] Cytogenetics Acquired Report Final Report ? [id number] Specimen Type: Bone Marrow Specimen Condition: ~3ml, [...] Jacobson MD HEMATOLOGY ORDERABLE S [facility] * Bone Marrow Final Report (03/18/2015 12:31 PM EST) FINAL DIAGNOSIS (AP) [id number] ?Location: The signing pathologist has (i) examined the relevant preparation(s) for the specimen(s) and (ii) rendered or confirmed the diagnosis(es). . ?Molecular Genetics RESULTS DIAGNOSIS 1. Thrombocytosis, by history 2. Normocellular marrow with maturing trilineage hematopoiesis. No morphologic features of involvement by a myeloproliferative neoplasm ??are seen. Cytogenetics and molecular studies pending. Myeloid Sequencing Panel (54-Gene Panel) SPECIMEN: ??[id number] Analysis: ??Examination of DNA extracted from peripheral blood or bone marrow aspirates for somatic mutation analysis. Results: ??This sample failed QC metrics post-sequencing. ?? If testing is warranted as per clinical indication, please contact the attending pathologist in order to resubmit an alternative tissue sample. Reviewed by: Ana Betts, PhD, Genomic Environmental Monitoring Technician ?04/10/15 16:41 Reviewed by: Tre Whitlock, PhD, [facility], Director-[facility] (t, 04/13/15 15:34) Verified date: ??04/24/15 ??JERZY Verified by: ?Monica SALCIDO, Josesito ?(Electronic Signature) ? Bone Marrow Final DIAGNOSIS 1. Thrombocytosis, by history 2. Normocellular marrow with maturing trilineage hematopoiesis. No morphologic features of involvement by a myeloproliferative neoplasm ??are seen. Cytogenetics and molecular studies pending. 03/19/15 [facility] 03/20/15 Verified by: ? Josesito Anderson [...] with results. PERIPHERAL SMEAR WBC 8.31K/ul; RBC 4.79j204/ul; Hgb 13.0; MCV 84.2; RDW 14.1; PLT [...] for myeloproliferative disorder 04/24/2015 4:46 PM EST [facility] 03/18/2015 12:3 1 PM EST Chris Jacobson MD PATHOLOGY/CYTOLOGY O RDERABLES Performing Organization Address City/[facility]/ZIP Co de Phone Number [facility] [place] [address] * Iron Stain, Bone Marrow (03/18/2015 12:31 PM EST) Iron Stain BM See Comment [facility]J [facility] Comment:See Bone Marrow Repo rt [id number] under Hematopathology Reports. Bone marrow specimen (specimen) 03/18/2015 12:31 PM EST 03/18/2015 12:53 PM EST Narrative Resulting Agency Comment Spec In Lab Chris Jacobson MD HEMATOLOGY ORDERABLE S [facility] * Differential, Automated (03/18/2015 10:00 AM EST) [...] [facility] MPV 9.6 9.0 - 12.0 fL [facility] Blood specimen (specimen) 03/18/2015 10:00 AM EST [...] Routine 1209 (Given - Provid er: Xiomara Carmona RN)1216 (Given - Provider: Xiomara Carmona RN) documented in this encounter Care Teams Medication Aide Relationship Specialty Start Date End Date Roxy Mehta MD [address] [place] [address] [address] PCP - General 02/23/10 documented as of this encounter
--- OUTSIDE RECORDS SUMMARY | 2023-10-30 01:52 | XMS_ITS | Encounter Summary ---
Author Organization [facility] Address [facility] [place] [address] Care Team Providers Care Practice Administrator Name Role Phone Willem Mehta MD Primary Care Provider [phone] Reason for Visit * Reason Comments Skin Check Encounter Details Date Type Department Care Team (Late st Contact Info) Description 01/07/2016 9:15 AM EDT Office Visit Dermatology at [address] [address] Joyce Truong MD [facility] [place] [address] [place] (actinic keratosis); Nevus; Giordano angioma; Seborrheic [...] encounter. Joyce Truong MD Section of Dermatology [facility] cc: No referring provider defined for this encounter. documented in this encounter Plan of Treatment Not on file documented as of this encounter Visit Diagnoses Diagnosis AK (actinic keratosis) Actinic keratosis Nevus Benign neoplasm of skin, site unspecified Giordano angioma Nevus, non-neoplastic Seborrheic keratosis Other seborrheic keratosis documented in this encounter Care Teams Practice Administrator Relationship Specialty Start Date End Date Willem Mehta MD [address] [facility] [facility] [address] PCP - General 02/23/10 documented as of this encounter
--- OUTSIDE RECORDS SUMMARY | 2023-10-30 01:52 | XMS_ITS | Encounter Summary ---
Author Organization [facility] Address [facility] [place] [address] Care Team Providers Care Plow Mechanic Name Role Phone Roxy Mehta MD Primary Care Provider [phone] Encounter Details Date Type Department Care Team (Late st Contact Info) Description 09/14/2016 External Results [facility] [place] [address] Samantha Pardo, POUCH MAKING MACHINE OPERATOR [facility] DR HEMATOLOGY [place] [address] Social History Tobacco Use Types Packs/Day Years [...] * Scan Doc: Chemotherapy (09/14/2016) Samantha Pardo POUCH MAKING MACHINE OPERATOR MEDIA MGR SCAN EXT O RDR/RSLT documented in this encounter Visit Diagnoses Not on filedocumented in this encounter Care Teams Plow Mechanic Relationship Specialty Start Date End Date Roxy Mehta MD [address] [place] [address] PCP - General 02/23/10 documented as of this encounter
--- OUTSIDE RECORDS SUMMARY | 2023-10-30 01:52 | XMS_ITS | Encounter Summary ---
Author Organization [facility] Address [facility] [place] [address] Care Team Providers Care Field Representative/Health Education Name Role Phone Willem Mehta MD Primary Care Provider Encounter Details Date Type Department Care Team (Late st Contact Info) Description 06/18/2015 Telephone Hematology [place] [address] Argelia Teresa MD [facility] HEMATOLGY/[place] [address] Social History Tobacco Use Types Packs/Day Years [...] WILLEM MEHTA MD that patient had normal [place] and EGD. She had plt elevated to [...] also be useful but this may not seed cone picker intermittent bleeding. We will see her in follow up as needed documented in this encounter Plan of Treatment Not on file documented as of this encounter Visit Diagnoses Not on filedocumented in this encounter Care Teams Field Representative/Health Education Relationship Specialty Start Date End Date Willem Mehta MD [address] [place] [address] PCP - General 02/23/10 documented as of this encounter
--- OUTSIDE RECORDS SUMMARY | 2023-10-30 01:52 | XMS_ITS | Encounter Summary ---
Author Organization [facility] [place] [address] Care Team Providers Care Fruit Distributor Name Role Phone Roxy Mehta MD Primary Care Provider [phone] Encounter Details Date Type Department Care Team (Late st Contact Info) Description 09/12/2016 2:45 PM EDT Office Visit Hematology [place] [address] Chris Jacobson MD [facility] [place] [address] Samantha Pardo APRN [facility] [place] [address] Shauna Cuadra, [facility] [address] HEMATOLOGY/[place] [address] Thrombocytosis; Elevated TSH Social History Tobacco Use [...] source of chronic blood loss. Interval History: Patricia is back for evaluation of worsening labs, [...] She was admitted for 2-3 days at [facility]. She was started on apixaban for anticoagulation [...] knees 5. Pulmonary Emboli Medications Medications 09/12/16 4044 Medication Sig Taking? apixaban (ELIQUIS) 5 mg [...] cytogenetics Myeloid Sequencing Panel (54-Gene Panel) SPECIMEN: ??[id number] Analysis: ??Examination of DNA extracted from peripheral [...] questions/concerns. Shauna Cuadra DO Hematology-Oncology Fellow Pager [phone] 09/12/2016 4:31 PM CC. Roxy Mehta MD [...] Resulting Agency Comment Spec In Lab Chris Jacosbon MD HEMATOLOGY ORDERABLE S Performing Organization Address City/[facility]/ZIP Co de Phone Number [facility] [place] [address] * Ferritin (10/03/2016 9:24 AM EDT) [facility] Signature Ferritin 400 30 - 400 ng/mL [facility] Comment: Pediatric reference ranges not verified at [facility], interpret with caution. Reference ranges for females greater than 50 years of age approach values for men, i.e., 30-400 ng/mL. Blood specimen (specimen) 10/03/2016 9:24 AM EDT 10/03/2016 9:27 AM EDT Narrative Resulting Agency Comment Spec In Lab Chris Jacobson MD CHEMISTRY ORDERABLES Performing Organization Address [facility]/ZIP Co de Phone Number [facility] [address] * Iron and TIBC (10/03/2016 9:24 AM EDT) [facility] Iron 74 30 - 150 mcg/dL [facility] TIBC 358 250 - 450 mcg/dL [facility] Iron Saturation 21 20 - 50 % [facility] Blood specimen (specimen) 10/03/2016 9:24 AM EDT 10/03/2016 9:27 AM EDT Narrative Resulting Agency Comment Spec In Lab Chris Jacobson MD CHEMISTRY ORDERABLES Performing Organization Address City/[facility]/ZIP Co de Phone Number [facility] [place] [address] * (ABNORMAL) Comprehensive metabolic panel (non-fasting) (10/03/2016 9:24 AM EDT) [facility] Signature Glucose Lvl 106 65 - 199 mg/dL [facility] Comment:Diabetes: >=200 mg/d L plus symptoms BUN 14 8 - 18 mg/dL [facility] Creatinine 0.90 0.70 - 1.20 mg/dL [facility] Comment: Please note that the pediatric reference intervals supplied above were not validated at [facility]. Results from pediatric patients should be interpreted [...] [facility] Estimated GFR >60 >=60 [facility] Comment: This estimated GFR [...] the following links into your internet browser. [email or web address] Blood specimen (specimen) 10/03/2016 9:24 AM EDT 10/03/2016 9:27 AM EDT Narrative Resulting Agency Comment Spec In Lab Chris Jacobson MD CHEMISTRY ORDERABLES [facility] [place] [id number] documented in this encounter Visit Diagnoses Diagnosis Thrombocytosis Essential thrombocythemia Elevated TSH Other abnormal blood chemistry documented in this encounter Care Teams Fruit Distributor Relationship Specialty Start Date End Date Roxy Mehta MD [address] [place] [address] PCP - General 02/23/10 documented as of this encounter
--- OUTSIDE RECORDS SUMMARY | 2023-10-30 01:52 | XMS_ITS | Encounter Summary ---
Author Organization [facility] Address [facility] [place] [address] Care Team Providers Care Equip Maint Eng Name Role Phone Roxy Mehta MD Primary Care Provider [phone] Encounter Details Date Type Department Care Team (Late st Contact Info) Description 06/24/2008 Orders [place] [address] Kimberley Coffman MD [facility] [place] [address] Social History Tobacco Use Types Packs/Day Years [...] 10:13 AM EDT) Surgical Pathology Report [id number] ? Location: [facility] The signing pathologist has (i) examined the relevant preparation(s) for the specimen(s) and (ii) rendered or confirmed the diagnosis(es). . ?Pathology Surgical Pathology Final Report Clinical Information Specimen Submitted: A - Left breast Clinical History: New calcifications Clinical Diagnosis: FCD DCIS Report to: Roxy Mehta MD [facility] [address] [place], [place] ??[address] Gross Description Specimen: ?Received in two containers. [...] in rendering the final pathologic diagnosis. [facility] 06/24/2008 10:1 3 AM EDT Kimberley Rose MD PATHOLOG Y/CYTOLOGY ORDERABLES [facility] documented in this encounter Visit Diagnoses Not on filedocumented in this encounter Care Teams Equip Maint Eng Relationship Specialty Start Date End Date Roxy Mehta MD [address] [place] [address] PCP - General 02/23/10 documented as of this encounter
--- OUTSIDE RECORDS SUMMARY | 2023-10-30 01:52 | XMS_ITS | Encounter Summary ---
Author Organization [facility] [place] [address] Care Team Providers Care Caustic Cresylate Shift Superintendent Name Role Phone Roxy Mehta MD Primary Care Provider [phone] Encounter Details Date Type Department Care Team (Latest Contact Info) Description 02/23/2015 11:17 AM EST - 02/23/2015 11:59 PM EST Hospital Encounter Hematology [place] [address] Thrombocytosis; Leukocytosis Discharge Disposition: Home Social History [...] End Date fluticasone propionate (Flonase) 50 mcg/actuation [place], Suspension Daily 07/12/2012 DULoxetine (CYMBALTA) 30 mg [...] from the submitted specimen using the Qiagen EZSnappy Chow BioRobot. The real time PCR was performed on the BRAYDEN 7500 system using fluorescently labeled probes for allelic discrimination References: ??Madan et al. Lancet 2005;365:7833-0055; Jose et al. Nature 2005;1-5; Dior et al. Lancet 2005;366:2711-1006; Solis et al. Blood 2005;106:1401-5287. CERNER MILLENNIUM Comment: [VERIFIED DATE]03.03.15 Verified By:Zeyad [...] MD HEMATOLOGY ORDERABLE S Performing Organization Address [facility] de Phone Number [facility] * (ABNORMAL) Ferritin (02/23/2015 11:30 AM EST) Ferritin 11(L) 30 - 400 ng/mL [facility] MILLENNIUM Comment: Pediatric reference ranges not verified at [facility], interpret with caution. Reference ranges for females greater than 50 years of age approach values for men, i.e., 30-400 ng/mL. Blood specimen (specimen) 02/23/2015 11:30 AM EST 02/23/2015 11:40 AM EST Narrative Resulting Agency Comment Spec In Lab Chris Jacobson MD CHEMISTRY ORDERABLES Performing Organization Address [facility] de Phone Number CERNER MILLENNIUM * [...] Jacobson MD CHEMISTRY ORDERABLES Performing Organization Address [facility] de Phone Number CERNER MILLENNIUM * (ABNORMAL) Comprehensive metabolic panel (non-fasting) (02/23/2015 11:30 AM EST) Glucose Lvl 111 65 - 199 mg/dL [facility] MILLENNIUM Comment:Diabetes: >=200 mg/d L plus symptoms BUN 21(H) 8 - 18 mg/dL [facility] MILLENNIUM Creatinine 0.80 0.70 - 1.20 mg/dL [facility] MILLENNIUM Comment: Please note that the pediatric reference intervals supplied above were not validated at [facility]. Results from pediatric patients should be interpreted [...] the following links into your internet browser. [email or web address] Blood specimen (specimen) 02/23/2015 11:30 AM EST 02/23/2015 11:40 AM EST Narrative Resulting Agency Comment Spec In Lab Chris Jacobson MD [facility]MISTRY ORDERABLES [facility] documented in this encounter Visit Diagnoses Diagnosis Thrombocytosis Essential thrombocythemia Leukocytosis Leukocytosis, unspecified documented in this encounter Care Teams Caustic Cresylate Shift Superintendent Relationship Specialty Start Date End Date Roxy Mehta MD [address] [place] [address] PCP - General 02/23/10 documented as of this encounter
--- OUTSIDE RECORDS SUMMARY | 2023-10-30 01:52 | XMS_ITS | Encounter Summary ---
Author Organization [facility] Address [place] [address] Care Team Providers Care Institution Librarian Name Role Phone Roxy Mehta MD Primary Care Provider [phone] Encounter Details Date Type Department Care Team (Late st Contact Info) Description 03/06/2015 Orders Only Hematology [place] [address] Argelia Teresa MD [facility] HEMATOLGY/[place] [address] Social History Tobacco Use Types Packs/Day Years [...] on filedocumented in this encounter Care Teams Institution Librarian Relationship Specialty Start Date End Date Roxy Mehta MD [address] [place] [address] PCP - General 02/23/10 documented as of this encounter
--- OUTSIDE RECORDS SUMMARY | 2023-10-30 01:52 | XMS_ITS | Encounter Summary ---
Author Organization [place] [address] Care Team Providers Care Fleet Coordinator Name Role Phone Roxy Mehta MD Primary Care Provider [phone] Encounter Details Date Type Department Care Team (Late st Contact Info) Description 08/28/2016 Ancillary Procedure [place] [id number] Roxy Mehta MD [address] [place] [address] Social History Tobacco Use Types [...] CT Chest (08/28/2016 12:00 AM EDT) Narrative [facility] - 05/07/2020 4:43 PM EST This exam is auto-finalizing. It's purpose is for storage only. Roxy Mehta MD [facility] FILM LIBRARY ORD ERABLES [place], [place] documented in this encounter Visit Diagnoses Not on filedocumented in this encounter Care Teams Fleet Coordinator Relationship Specialty Start Date End Date Roxy Mehta MD [address] [place] [address] PCP - General 02/23/10 documented as of this encounter
--- OUTSIDE RECORDS SUMMARY | 2023-10-30 01:52 | XMS_ITS | Encounter Summary ---
Author Organization [facility] [place] [address] Care Team Providers Care Head Of Partner Development Name Role Phone Roxy Mehta MD Primary Care Provider [phone] Reason for Visit * Reason Comments Anemia Encounter Details Date Type Department Care Team (Latest Contact Info) Description 09/15/2016 8:17 AM EDT - 09/15/2016 11:59 PM EDT Hospital Encounter Hematology [place] [address] Iron deficiency anemia, unspecified iron deficiency anemia [...] End Date fluticasone propionate (Flonase) 50 mcg/actuation [place], Suspension Daily 07/12/2012 cholecalciferol, Vitamin D3, 50 [...] mL/hr documented in this encounter Care Teams Head Of Partner Development Relationship Specialty Start Date End Date Roxy Mehta MD [address] [place] [address] [address] [place] [address] PCP - General 02/23/10 documented as of this encounter
[2023-10-30] MEDS: SODIUM FER. GLUC./SUC. 125 MG in Normal Saline 100 ML 110 MG IVPB (11:28)
[2023-10-30] MEDS: Normal Saline Flush 10 ML SYR IVP (11:29)
== END 2023-11-01 23:59 | disposition home or self-care (01) ==
LOC: INF 01:49
PROVIDERS: PCP Family Medicine; Visit Provider Family Medicine
DX: D50.9 Iron deficiency anemia, unspecified (principal)
CPT/HCPCS: 96365; J2916

== ENCOUNTER 2023-11-28 02:32 | Outpatient (RCR) | payer MEDICARE, SELFPAY ==
--- OUTSIDE RECORDS SUMMARY | 2023-11-06 03:10 | XMS_ITS | Encounter Summary ---
Author Organization [facility] [place] [address] Care Team Providers Care Clothing Busheler Name Role Phone Roxy Mehta MD Primary Care Provider [phone] Encounter Details Date Type Department Care Team (Late st Contact Info) Description 08/18/2020 Telephone Hematology [place] [address] Clarissa Zuleta RN Social History Tobacco Use [...] on filedocumented in this encounter Care Teams Clothing Busheler Relationship Specialty Start Date End Date Roxy Mehta MD [address] [place] [address] PCP - General 02/23/10 documented as of this encounter
--- OUTSIDE RECORDS SUMMARY | 2023-11-06 03:10 | XMS_ITS | Encounter Summary ---
Author Organization [facility] [place] [address] Care Team Providers Care Senior Oracle Database Developer Name Role Phone Roxy Mehta MD Primary Care Provider [phone] Encounter Details Date Type Department Care Team (Latest Contact Info) Description 08/11/2020 12:18 PM EDT - 08/11/2020 11:59 PM EDT Hospital Encounter Hematology [place] [address] VTE (venous thromboembolism); Iron deficiency anemia, unspecified [...] End Date fluticasone propionate (Flonase) 50 mcg/actuation [place], Suspension Daily 07/12/2012 levothyroxine (Synthroid) 50 mcg [...] Act 129 64 - 149 % activity [facility] Blood specimen (specimen) Venous Draw / Unknown 08/11/2020 12:37 PM EDT 08/11/2020 1:14 PM EDT Narrative Resulting Agency Comment Spec In Lab Wendy Espana MD HEMATOLOGY ORDERABLE S [facility] [place] [address] * (ABNORMAL) Protein C activity (08/11/2020 12:37 PM EDT) Protein C Activity >150(H) 70 - 140 % [facility] Blood specimen (specimen) Venous Draw / Unknown 08/11/2020 12:37 PM EDT 08/11/2020 1:14 PM EDT Narrative Resulting Agency Comment Spec In Lab Wendy Espana MD HEMATOLOGY ORDERABLE S [facility] [place] [address] * (ABNORMAL) Antithrombin (08/11/2020 12:37 PM EDT) Antithrombin III Assay >150(H) 83 - 128 % [facility] Blood specimen (specimen) Venous Draw / Unknown 08/11/2020 12:37 PM EDT 08/11/2020 1:14 PM EDT Narrative Resulting Agency Comment Spec In Lab Wendy Espana MD HEMATOLOGY ORDERABLE S [facility] [place] [address] * APC resistance (08/11/2020 12:37 PM EDT) [facility] Activated Protein C Resistance 3.10 >=2.54 [facility] Blood Venous Draw / Unknown 08/11/2020 12:37 PM EDT 08/11/2020 1:14 PM EDT Narrative Resulting Agency Comment Spec In Lab Wendy Espana MD HEMATOLOGY ORDERABLE S Performing Organization Address City/[facility] Co de Phone Number [facility] [place] [address] * Differential, Automated (08/11/2020 12:37 PM EDT) [facility] Neutrophil % 58.2 % [facility] Neutrophil Absolute 5.54 1.70 - 6.10 x10(3)/[facility] Lymph % 31.0 % [facility] Lymphocytes Abs 3.0 0.9 - 3.2 x10(3)/[facility] Monocyte % 8.9 % [facility] Monocyte Abs 0.8 0.3 - 0.9 x10(3)/[facility] Eos % 0.9 % [facility] Eosinophils Abs 0.1 0.0 - 0.4 x10(3)/[facility] Basophil % 0.8 % [facility] Baso Absolute 0.1 0.0 - 0.1 x10(3)/[facility] Immature Gran % 0.20 % [facility] Comment: Immature granulocytes(IG's)percentage and absolute count will include metamyelocytes, myelocytes, and promyelocytes. Blood smears from CBCs yielding IG's will be scanned manually for concordance. If this scan disagrees with the automated IG or if promyelocytes are noted, a manual differential will be performed. Immature Gran Absolute 0.02 0.00 - 0.04 x10(3)/mcL [facility] Blood specimen (specimen) 08/11/2020 12:37 PM EDT 08/11/2020 1:14 PM EDT Narrative Resulting Agency Comment Spec In Lab Wendy Espana MD HEMATOLOGY ORDERABLE S [facility] [place] [address] * (ABNORMAL) Hemogram (08/11/2020 12:37 PM EDT) White Blood Cell 9.5 4.0 - 9.5 x10(3)/mc L [facility] Red Blood Cell 5.13 4.00 - 5.21 x10(6)/mc L [facility] Hemoglobin 13.9 11.7 - 15.5 gm/dL [facility] Hematocrit 44.2 35.7 - 45.8 % [facility] Mean Cell Volume 86.2 82.6 - 94.[address] [facility] Mean Cell Hemoglobin 27.1 27.1 - 32.[address] [facility] Mean Cell Hemoglobin Concentration 31.4(L) 31.7 - 35.0 gm/dL [facility] Platelet 492(H) 145 - 357 x10(3)/mc L [facility] RDW Standard Deviation 59.7(H) 37.0 - 46.[address] [facility] RDW coefficient of variation 18.6(H) 11.5 - 14.1 % [facility] Mean Platelet Volume 9.3 7.6 - 12.[address] [facility] NRBC% auto 0.0 % [facility] NRBC Absolute 0.000 0.000 - 0.000 x10(3)/mc L [facility] Blood specimen (specimen) 08/11/2020 12:37 PM EDT 08/11/2020 1:14 PM EDT Narrative Resulting Agency Comment Spec In Lab Wendy Espana MD HEMATOLOGY ORDERABLE S [facility] [place] [address] * Beta-2 glycoprotein antibodies (08/11/2020 12:37 PM EDT) Beta 2 Glycoprotein, IgG <9.4 <=20.0 unit(s) [facility] Beta 2 Glycoprotein, IgM <9.4 <=20.0 unit(s) [facility] B2GPI Interp See Thrombosis Screen Report [id number] Hematopatholo gy Reports. [facility] Blood specimen (specimen) 08/11/2020 12:37 PM EDT 08/12/2020 7:29 AM EDT Narrative Resulting Agency Comment Spec In Lab Wendy Espana MD IMMUNOLOGY ORDERABLE S Performing Organization Address City/[facility]/ZIP Co de Phone Number [facility] [place] [address] * Homocysteine Total, Plasma (08/11/2020 12:37 PM EDT) Homocystine 11 <=15 mcmol/L [facility] Blood specimen (specimen) 08/11/2020 12:37 PM EDT 08/11/2020 1:14 PM EDT Narrative Resulting Agency Comment Spec In Lab Wendy Espana MD CHEMISTRY ORDERABLES Performing Organization Address City/[facility]/ZIP Co de Phone Number [facility] [place] [address] * Cardiolipin Antibody Screen (08/11/2020 12:37 PM EDT) Pathologist [facility] Cardiolipin Antibody IgG <9.4 <=14.9 GPL unit(s) [facility] Comment: Ranges ?? GPL ------ ?? --- Negative ?? <=14.9 Indeterminate ??15.0 - 20.0 Low/Medium Positive 20.1 - 80.0 High Positive ??>80.0 Cardiolipin Antibody IgM <9.4 <=12.5 MPL unit(s) [facility] Comment: Ranges ?? MPL ------ ?? --- Negative ?? <=12.5 Indeterminate ??12.6 - 20.0 Low/Medium Positive 20.1 - 80.0 High Positive ??>80.0 Blood specimen (specimen) 08/11/2020 12:37 PM EDT 08/12/2020 7:29 AM EDT Narrative Resulting Agency Comment Spec In Lab Wendy Espana MD IMMUNOLOGY ORDERABLE S Performing Organization Address City/[facility]/ZIP Co de Phone Number [facility] [place] [address] * THS Report (08/11/2020 12:37 PM EDT) [facility] THS Report See Comment [facility] Comment:See Thrombosis Scree n Report [id number] under Hematopathology Reports. Blood 08/11/2020 12:3 7 PM EDT 08/11/2020 1:14 PM EDT Narrative Resulting Agency Comment Spec In Lab Wendy Espana MD HEMATOLOGY ORDERABLE S Performing Organization Address City/[facility]/ZIP Co de Phone Number [facility] [place] [address] * dRVVT (08/11/2020 12:37 PM EDT) [facility] dRVVT 0.86 <=1.20 IU/mL [facility] Comment: A result greater than [...] MD HEMATOLOGY ORDERABLE S Performing Organization Address [facility] Co de Phone Number [facility] [place] [address] * Silica Clotting Time (08/11/2020 12:37 PM EDT) Silica Clotting Time 1.13 <=1.[address] [facility] Comment: A result greater than [...] MD HEMATOLOGY ORDERABLE S Performing Organization Address [facility] Co de Phone Number [facility] [place] [address] * TT (08/11/2020 12:37 PM EDT) Thrombin Time 14 10 - [address] [facility] Comment: A prolongation in the [...] MD HEMATOLOGY ORDERABLE S Performing Organization Address [facility]/ZIP Co de Phone Number [facility] [place] [address] * (ABNORMAL) FIBR (08/11/2020 12:37 PM EDT) Fibrinogen 465(H) 200 - 393 mg/dL [facility] Comment: A fibrinogen level >100 mg/dL is adequate for hemostasis in most patients without underlying bleeding disorders. Blood specimen (specimen) 08/11/2020 12:37 PM EDT 08/11/2020 1:14 PM EDT Narrative Resulting Agency Comment Spec In Lab Wendy Espana MD HEMATOLOGY ORDERABLE S Performing Organization Address [facility] Co de Phone Number [facility] [place] [address] * PTT (08/11/2020 12:37 PM EDT) Partial Thromboplastin Time 34 25 - [address] [facility] Comment: The PTT is NOT appropriate for heparin monitoring. Use the Anti-Xa level for heparin monitoring (HEP UFH) or LMWH monitoring (HEP LMW). A PTT less than 37 seconds generally indicates adequate hemostasis. Blood specimen (specimen) 08/11/2020 12:37 PM EDT 08/11/2020 1:14 PM EDT Narrative Resulting Agency Comment Spec In Lab Wendy Espana MD HEMATOLOGY ORDERABLE S Performing Organization Address [facility] Co de Phone Number [facility] [place] [address] * (ABNORMAL) PT (08/11/2020 12:37 PM EDT) [facility] Prothrombin Time 13.0(H) 9.4 - 12.[address] [facility] International Normalization Ratio 1.1 [facility] Comment: An INR <2.0 indicates [...] MD HEMATOLOGY ORDERABLE S Performing Organization Address City/[facility]/ZIP Co de Phone Number [facility] [place] [address] * Iron and TIBC (08/11/2020 12:37 PM EDT) [facility] Iron 81 30 - 150 mcg/dL [facility] TIBC 383 250 - 450 mcg/dL [facility] Iron Saturation 21 20 - 50 % [facility] Blood specimen (specimen) 08/11/2020 12:37 PM EDT 08/11/2020 1:14 PM EDT Narrative Resulting Agency Comment Spec In Lab Wendy Espana MD CHEMISTRY ORDERABLES [facility] [place] [address] * Ferritin (08/11/2020 12:37 PM EDT) [facility] Ferritin 32 30 - 400 ng/mL [facility] Comment: Pediatric reference ranges not verified at [facility], interpret with caution. Reference ranges for females greater than 50 years of age approach values for men, i.e., 30-400 ng/mL. Blood specimen (specimen) 08/11/2020 12:37 PM EDT 08/11/2020 1:14 PM EDT Narrative Resulting Agency Comment Spec In Lab Wendy Espana MD CHEMISTRY ORDERABLES [facility] [place] [address] * Thrombosis Screen Report (08/11/2020 12:20 PM EDT) Thrombosis Screen Report [id number] ? Location: 3K The signing pathologist has [...] MD Verified: ??09/02/2020 11:32 ??Hematopathologist Performed at: ??-[facility] Dept. of Pathology, [place], [place] ADDITIONAL STUDIES TEST ?(REFERENCE RANGE) ?RESULT [...] antibodies ?(IgM </= 12.5 MPL) ?<9.4 MPL Tfmh-9-fyesizdbftvk-1 antibodies ??(IgG </= 20 units) ?<9.4 units Xsfn-1-avttefrkahke-1 antibodies ??(IgM </= 20 units) ?<9.4 units Homocysteine, random, plasma ?(</=15 umol/L) ?11 umol/L Factor V Leiden Mutation ?(normal) ?Not performed Prothrombin (45534 G->A) mutation (normal) ?Not performed * Functional [...] with apixaban. No family history of VTE. [facility] 08/11/2020 12:2 0 PM EDT Wendy Espana MD PATHOLOGY/CYTOLOGY O RDERABLES [facility] [place] [address] documented in this encounter Visit Diagnoses Diagnosis VTE (venous thromboembolism) Embolism and thrombosis of unspecified site Iron deficiency anemia, unspecified iron deficiency anemia type documented in this encounter Care Teams Senior Oracle Database Developer Relationship Specialty Start Date End Date Roxy Mehta MD [address] [place] [address] PCP - General 02/23/10 documented as of this encounter
--- OUTSIDE RECORDS SUMMARY | 2023-11-06 03:10 | XMS_ITS | Encounter Summary ---
Author Organization [facility] Address [facility] [place] [address] Care Team Providers Care Payroll And Benefits Analyst Name Role Phone Roxy Mehta MD Primary Care Provider [phone] Encounter Details Date Type Department Care Team (Late st Contact Info) Description 10/19/2023 Telephone Hematology/Oncology at [address] [address] Enid Romero RN Social History [...] not included. Tried to call Maggie at [facility] back x 5 could not get past VM. Left VM. Dr. Jacobson referred Pt back to PCP management of [facility] on 06/17/[address] Pollock has been watching her Ferratin and last gave IV ferratin at [facility] infusion in April when ferratin level fell to the 30's. It looks like Pt is set up for Ferratin infusions at [facility] infusion Starting 10/29. Labs today: ----- Message from Marcia Moise sent at 10/19/2023 3:34 PM EDT ----- Just spoke with Maggie from [facility]. She was inquiring about Patricia being able [...] to play phone tag. Her number is [phone] Thank you Marcia documented in this encounter Plan of Treatment Not on file documented as of this encounter Visit Diagnoses Not on filedocumented in this encounter Care Teams Payroll And Benefits Analyst Relationship Specialty Start Date End Date Roxy Mehta MD [address] [place] [address] PCP - General 02/23/10 documented as of this encounter
--- OUTSIDE RECORDS SUMMARY | 2023-11-06 03:10 | XMS_ITS | Encounter Summary ---
Author Organization [facility] [place] [address] Care Team Providers Care Finnish Rubber Name Role Phone Roxy Mehta MD Primary Care Provider Reason for Visit * Reason Comments Follow-up Encounter Details Date Type Department Care Team (Late st Contact Info) Description 10/03/2016 10:45 AM EDT Office Visit Hematology [place] [address] Chris Jacobson MD [facility] DR HEMATOLOGY [place] [address] Samantha Pardo, CHELI [facility] DR HEMATOLOGY [place] [address] Thrombocytosis; Iron deficiency anemia due to chronic [...] this encounter Progress Notes * Samantha Pardo, TRIM MACHINE OPERATOR - 10/03/2016 10:45 AM EDT Subjective: Patient [...] it is quite inconveniene tto travel to [place]. She has requested PCP follow up in the immediate future and if needed - perhaps hematology follow up in the future at [facility]. Would recommend Q3 months CBC and iron studies. If requires ongoing IV iron we could help to get her set up in [facility] for this. Regarding her thrombocytosis -this is better after iron infusions, ([facility]) however stillelevated. Previous marrow in 2014 did [...] (chronic) documented in this encounter Care Teams Finnish Rubber Relationship Specialty Start Date End Date Roxy Mehta MD [address] [place] [address] PCP - General 02/23/10 documented as of this encounter
--- OUTSIDE RECORDS SUMMARY | 2023-11-06 03:10 | XMS_ITS | Encounter Summary ---
[place] [address] Care Team Providers Care Furnace Mason Name Role Phone Roxy Mehta MD Primary Care Provider [phone] Encounter Details Date Type Department Care Team (Late st Contact Info) Description 05/11/2020 Telephone [place] [phone] Lacey Cole Social History Tobacco Use Types [...] on filedocumented in this encounter Care Teams Furnace Mason Relationship Specialty Start Date End Date Roxy Mehta MD [address] [place], [place] [id number] PCP - General 02/23/10 documented as of this encounter
--- OUTSIDE RECORDS SUMMARY | 2023-11-06 03:10 | XMS_ITS | Encounter Summary ---
Author Organization [facility] [place] [address] Care Team Providers Care Tmd Teacher Name Role Phone Roxy Mehta MD Primary Care Provider [phone] Encounter Details Date Type Department Care Team (Late st Contact Info) Description 03/08/2019 Ancillary Procedure [place] [phone] Roxy Mehta MD [address] [place] [address] Social History Tobacco Use Types [...] Abdomen Pelvis (03/08/2019 12:00 AM EST) Narrative [facility] - 05/07/2020 4:47 PM EST This exam is auto-finalizing. It's purpose is for storage only. Roxy Mehta MD IM FILM LIBRARY ORD ERABLES [place], [place] documented in this encounter Visit Diagnoses Not on filedocumented in this encounter Care Teams Tmd Teacher Relationship Specialty Start Date End Date Roxy Mehta MD [address] [place] [address] [address] [facility] [address] [place] [address] PCP - General 02/23/10 documented as of this encounter
--- OUTSIDE RECORDS SUMMARY | 2023-11-06 03:10 | XMS_ITS | Encounter Summary ---
Author Organization [facility] Address [facility] [place] [address] Care Team Providers Care Principal Accounts Clerk Name Role Phone Roxy Mehta MD Primary Care Provider [phone] Reason for Visit * Reason Comments Skin Check rough areas on hairl ine Encounter Details Date Type Department Care Team (Late st Contact Info) Description 12/12/2017 9:30 AM EDT Office Visit Dermatology at [facility] [address] [place] [address] Moody Beck MD [facility] [address] [address] Ainsley Perez PA [facility] [address] [address] Lentigines; SKs (seborrheic keratoses) Social History Tobacco [...] call if areas become inflamed or irritated. [facility] [id number] RTC: 1 year for FSE. Routed for [...] Reviewed and signed by Ainsley Perez PA-C [facility] Patient seen in conjunction with staff mental health assistant: Moody Beck MD Section of Dermatology [facility] * Moody Beck MD - 12/12/2017 9:30 AM EDT Patient seen and examined. Scattered regular brown macules c/w solar lentigines- discussed suncare,reassured about benign nature. Scattered stuck on papules and plaques c/w SK's- reassured about benign nature. Patient seen in conjunction with Ainsley Perez PA-C ([place]) Signed by: MOODY BECK MD Section of Dermatology [facility] documented in this encounter Plan of Treatment Not on file documented as of this encounter Visit Diagnoses Diagnosis Lentigines Other dyschromia SKs (seborrheic keratoses) Other seborrheic keratosis documented in this encounter Care Teams Principal Accounts Clerk Relationship Specialty Start Date End Date Roxy Mehta MD [address] [place] [address] PCP - General 02/23/10 documented as of this encounter
--- OUTSIDE RECORDS SUMMARY | 2023-11-06 03:10 | XMS_ITS | Encounter Summary ---
Author Organization Counts Include [facility] Address [facility] [place] [address] Care Team Providers Care Major General Name Role Phone Roxy Mehta MD Primary Care Provider [phone] Encounter Details Date Type Department Care Team (Late st Contact Info) Description 07/13/2020 Telephone Dermatology at [facility] [address] [place] [address] Joyce Truong MD [facility] [place] [address] Social History Tobacco Use Types Packs/Day Years [...] on filedocumented in this encounter Care Teams Major General Relationship Specialty Start Date End Date Roxy Mehta MD [address] [place] [address] PCP - General 02/23/10 documented as of this encounter
--- OUTSIDE RECORDS SUMMARY | 2023-11-06 03:10 | XMS_ITS | Encounter Summary ---
Author Organization [facility] [place] [address] Care Team Providers Care Senior Analyst Name Role Phone Roxy Mehta MD Primary Care Provider [phone] Encounter Details Date Type Department Care Team (Latest Contact Info) Description 08/04/2020 1:30 PM EDT - 08/04/2020 11:59 PM EDT Hospital [place] [address] Pulmonary hypertension Discharge Disposition: Home Social History [...] End Date fluticasone propionate (Flonase) 50 mcg/actuation [place], Suspension Daily 07/12/2012 levothyroxine (Synthroid) 50 mcg [...] / FVC LLN 63 % COMPAS PFT [id number] Actual Pre-BD 2.40 L/s COMPAS PFT ATM58-13 Pre-BD % of Predicted 157 % COMPAS PFT ASE23-92 Predicted 1.53 L/s COMPAS PFT [id number] Pre-BD Z-Score 1.14 COMPAS PFT DLCO Hb [...] diseases documented in this encounter Care Teams Senior Analyst Relationship Specialty Start Date End Date Roxy Mehta MD [address] [place] [address] PCP - General 02/23/10 documented as of this encounter
--- OUTSIDE RECORDS SUMMARY | 2023-11-06 03:10 | XMS_ITS | Encounter Summary ---
Author Organization [facility] [place] [address] Care Team Providers Care Investment Representative Name Role Phone Roxy Mehta MD Primary Care Provider [phone] Reason for Referral * Consultation (Priority 3) - Closed Specialty Diagnoses / Procedures Referred By Contac t Referred To Contact Dermatology Diagnoses Disorder of the skin and subcutaneous tissue, unspecified Roxy Mehta MD [address] [place] [address] [facility] [address] [place] [address] Referral ID Status Reason Start Date Expiration Date V isits Requested Visits Authorized [id number] Closed Consult, Test & Treat PCP Updated and/or Approved 10/06/2022 10/06/2023 6 6 Encounter Details Date Type Department Care Team (Late st Contact Info) Description 10/06/2022 Transcribe Orders eDH Incoming Referrals [phone] Roxy Mehta MD [address] [place] [address] Disorder of the skin and [...] unspecified documented in this encounter Care Teams Investment Representative Relationship Specialty Start Date End Date Roxy Mehta MD [address] [place] [address] PCP - General 02/23/10 documented as of this encounter
--- OUTSIDE RECORDS SUMMARY | 2023-11-06 03:10 | XMS_ITS | Encounter Summary ---
Author Organization [facility] [place] [address] Care Team Providers Care Case Loader Operator Name Role Phone Roxy Mehta MD Primary Care Provider [phone] Encounter Details Date Type Department Care Team (Late st Contact Info) Description 04/28/2020 12:05 AM EST Ancillary Procedure [place] [address] Roxy Mehta MD [address] [place], [place] [id number] Social History Tobacco Use Types Packs/Day Years [...] CT Chest (04/28/2020 12:05 AM EST) Narrative [facility] - 05/07/2020 4:50 PM EST This exam is auto-finalizing. It's purpose is for storage only. Roxy Mehta MD [facility] FILM LIBRARY ORD ERABLES [place], [place] documented in this encounter Visit Diagnoses Not on filedocumented in this encounter Care Teams Case Loader Operator Relationship Specialty Start Date End Date Roxy Mehta MD [address] [place] [address] [address] [place] [address] PCP - General 02/23/10 documented as of this encounter
--- OUTSIDE RECORDS SUMMARY | 2023-11-06 03:10 | XMS_ITS | Encounter Summary ---
Author Organization [facility] [place] [address] Care Team Providers Care Casting Machine Operator Helper Name Role Phone Roxy Mehta MD Primary Care Provider [phone] Encounter Details Date Type Department Care Team (Latest Contact Info) Description 10/03/2016 9:14 AM EDT - 10/03/2016 11:59 PM EDT Hospital Encounter [place] [address] Thrombocytosis Discharge Disposition: Home Social History Tobacco [...] End Date fluticasone propionate (Flonase) 50 mcg/actuation [place], Suspension Daily 07/12/2012 cholecalciferol, Vitamin D3, 50 [...] 9:24 AM EDT Thrombocytosis COMPREHENSIVE METABOLIC PANEL Routine 10/03/2016 9:24 AM EDT Thrombocytosis documented in this encounter Results * Differential, Automated (10/03/2016 9:24 AM EDT) Neutrophil % 55.4 % [facility] Neutrophil Absolute 4.34 1.70 - 6.10 x10(3)/[facility] Lymph % 32.9 % [facility] Lymphocytes Abs 2.6 0.9 - 3.2 x10(3)/[facility] Monocyte % 8.4 % [facility] Monocyte Abs 0.7 0.3 - 0.9 x10(3)/[facility] Eos % 1.5 % [facility] Eosinophils Abs 0.1 0.0 - 0.4 x10(3)/[facility] Basophil % 1.3 % [facility] Baso Absolute 0.1 0.0 - 0.1 x10(3)/[facility] Immature Gran % 0.50 % [facility] Comment: Immature granulocytes(IG's)percentage and absolute count will include metamyelocytes, myelocytes, and promyelocytes. Blood smears from CBCs yielding IG's will be scanned manually for concordance. If this scan disagrees with the automated IG or if promyelocytes are noted, a manual differential will be performed. Immature Gran Absolute 0.04 0.00 - 0.04 x10(3)/[facility] Blood specimen (specimen) 10/03/2016 9:24 AM EDT 10/03/2016 9:27 AM EDT Narrative Resulting Agency Comment Spec In Lab Chris Jacobson MD HEMATOLOGY ORDERABLE S [facility] [place] [address] * (ABNORMAL) Hemogram (10/03/2016 9:24 AM EDT) White Blood Cell 7.8 4.0 - 9.5 x10(3)/mc L [facility] Red Blood Cell 4.40 4.00 - 5.21 x10(6)/ L [facility] Hemoglobin 11.6(L) 11.7 - 15.5 gm/dL [facility] Hematocrit 38.1 35.7 - 45.8 % [facility] Mean Cell Volume 86.6 82.6 - 94.4 fL [facility] Mean Cell Hemoglobin 26.4(L) 27.1 - 32.0 pg [facility] Mean Cell Hemoglobin Concentration 30.4(L) 31.7 - 35.0 gm/dL [facility] Platelet 688(H) 145 - 357 x10(3)/mc L [facility] RDW Standard Deviation 60.5(H) 37.0 - 46.0 fL [facility] RDW coefficient of variation 19.4(H) 11.5 - 14.1 % [facility] Mean Platelet Volume 8.6 7.6 - 12.9 fL [facility] NRBC% auto 0.0 % [facility] NRBC Absolute 0.000 0.000 - 0.000 x10(3)/mc L [facility] Blood specimen (specimen) 10/03/2016 9:24 AM EDT 10/03/2016 9:27 AM EDT Narrative Resulting Agency Comment Spec In Lab Chris Jacobson MD HEMATOLOGY ORDERABLE S [facility] [place] [address] * (ABNORMAL) Reticulocyte Count (10/03/2016 9:24 AM EDT) Reticulocyte % 3.1(H) 0.7 - 2.5 % [facility] Retic Abs # 0.140(H) 0.020 - 0.110 x10(6)/mc L [facility] Immature Retic% 22.7(H) 0.5 - 13.8 % [facility] Reticulated Hgb 36.4 29.8 - 39.4 pg [facility] Blood specimen (specimen) 10/03/2016 9:24 AM EDT 10/03/2016 9:27 AM EDT Narrative Resulting Agency Comment Spec In Lab Chris Jacobson MD HEMATOLOGY ORDERABLE S Performing Organization Address [facility]/ZIP Co de Phone Number [facility] [place] [address] * Ferritin (10/03/2016 9:24 AM EDT) [facility] Signature Ferritin 400 30 - 400 ng/mL [facility] Comment: Pediatric reference ranges not verified at [facility], interpret with caution. Reference ranges for females greater than 50 years of age approach values for men, i.e., 30-400 ng/mL. Blood specimen (specimen) 10/03/2016 9:24 AM EDT 10/03/2016 9:27 AM EDT Narrative Resulting Agency Comment Spec In Lab Chris Jacobson MD CHEMISTRY ORDERABLES Performing Organization Address [facility]/ZIP Co de Phone Number [facility] [place] [address] * Iron and TIBC (10/03/2016 9:24 AM EDT) [facility] Iron 74 30 - 150 mcg/dL [facility] TIBC 358 250 - 450 mcg/dL [facility] Iron Saturation 21 20 - 50 % [facility] Blood specimen (specimen) 10/03/2016 9:24 AM EDT 10/03/2016 9:27 AM EDT Narrative Resulting Agency Comment Spec In Lab Chris Jacobson MD CHEMISTRY ORDERABLES Performing Organization Address [facility]/ZIP Co de Phone Number [facility] [place] [address] * (ABNORMAL) Comprehensive metabolic panel (non-fasting) (10/03/2016 9:24 AM EDT) [facility] Signature Glucose 106 65 - 199 mg/dL [facility] Comment:Diabetes: >=200 mg/d L plus symptoms Blood Urea Nitrogen 14 8 - 18 mg/dL [facility] Creatinine 0.90 0.70 - 1.20 mg/dL [facility] Comment: Please note that the pediatric reference intervals supplied above were not validated at [facility]. Results from pediatric patients should be interpreted in conjunction to the patient's age, height and muscle mass. Sodium 139 135 - 145 mmol/L [facility] Potassium 4.2 3.5 - 5.0 mmol/L [facility] Comment: Please note: ??Patients with WBC >100,000 may have falsely elevated Potassium levels. ??For accurate Potassium quantification in these patients send serum separator tube ([facility] top) for subsequent determinations. ??Contact the Clinical Chemistry Laboratory if there are any questions. Chloride 97(L) 98 - 107 mmol/L [facility] Carbon Dioxide 22 22 - 31 mmol/L [facility] Anion Gap 20(H) 5 - 15 mmol/L [facility] Calcium 9.8 8.5 - 10.5 mg/dL [facility] Protein, Total 7.5 6.1 - 8.0 gm/dL [facility] Albumin 4.3 3.2 - 5.2 gm/dL [facility] Aspartate Aminotransferase 13 0 - 30 unit/L [facility] Alanine Aminotransferase 16 0 - 30 unit/L [facility] Alkaline Phosphatase 115(H) 40 - 104 unit/L [facility] Bilirubin, Total <0.2(L) 0.2 - 1.3 mg/dL [facility] Bilirubin, Direct <0.1 0.0 - 0.3 mg/dL [facility] Est Glomerular Filtration Rate >60 >=60 [facility] Comment: This estimated GFR [...] the following links into your internet browser. [email or web address] Blood specimen (specimen) 10/03/2016 9:24 AM EDT 10/03/2016 9:27 AM EDT Narrative Resulting Agency Comment Spec In Lab Chris Jacobson MD CHEMISTRY ORDERABLES Performing Organization Address City/[facility] Co de Phone Number [facility] [place] [address] documented in this encounter Visit Diagnoses Diagnosis Thrombocytosis Essential thrombocythemia documented in this encounter Care Teams Casting Machine Operator Helper Relationship Specialty Start Date End Date Roxy Mehta MD [address] [place] [address] PCP - General 02/23/10 documented as of this encounter
--- OUTSIDE RECORDS SUMMARY | 2023-11-06 03:10 | XMS_ITS | Encounter Summary ---
Author Organization [facility] Address [facility] [place] [address] Care Team Providers Care Linux Network Administrator Name Role Phone Roxy Mehta MD Primary Care Provider [phone] Reason for Visit * Reason Comments Skin Check Encounter Details Date Type Department Care Team (Late st Contact Info) Description 01/03/2019 2:15 PM EDT Office Visit Dermatology at [address] [address] Joyce Beck MD [facility] [address] SKs (seborrheic keratoses); Seborrheic keratosis, inflamed; Solar [...] with surrounding erythema located on the right yazidi x1 C. Sun exposed areas: 0.3-0.6cm light-brown [...] MD. Joyce Beck MD Section of Dermatology [facility] documented in this encounter Plan of Treatment Not on file documented as of this encounter Visit Diagnoses Diagnosis SKs (seborrheic keratoses) Other seborrheic keratosis Seborrheic keratosis, inflamed Inflamed seborrheic keratosis Solar lentigo Other dyschromia Giordano angioma Nevus, non-neoplastic Skin tag Unspecified hypertrophic and atrophic condition of skin documented in this encounter Care Teams Linux Network Administrator Relationship Specialty Start Date End Date Roxy Mehta MD [address] [place] [address] PCP - General 02/23/10 documented as of this encounter
--- OUTSIDE RECORDS SUMMARY | 2023-11-06 03:10 | XMS_ITS | Encounter Summary ---
Author Organization [facility] Address [facility] [place] [address] Care Team Providers Care Gas Plumbing Inspector Name Role Phone Roxy Mehta MD Primary Care Provider [phone] Reason for Visit * Consultation (Routine) - Closed Specialty Diagnoses / Procedures Referred By Contac t Referred To Contact Dermatology Diagnoses Disorder of the skin and subcutaneous tissue, unspecified SK ON TENRIISM, GROWING Roxy Mehta MD [address] [place] [address] [facility] Dermatology [address] [place] [address] Referral ID Status Reason Start Date Expiration Date V isits Requested Visits Authorized [id number] Closed Consult, Test & Treat [facility] PCP Updated and/or Approved 03/04/2021 03/04/2022 6 6 Encounter Details Date Type Department Care Team (Late st Contact Info) Description 05/11/2021 11:30 AM EST Office Visit Dermatology at [facility] [address] [place] [address] Ramón Grijalva MD [facility] DR SYLV[place] [address] Seborrheic keratosis, inflamed; SK (seborrheic [...] brown stuck on papule on the right gnosticist -benign nature of lesions discussed -patient reassured. [...] treatment needed. RTC: PRN []Note routed to legal secretary []Recall placed in scheduling system []Appointment scheduled at checkout Scribe attestation: Delon Herzog CMA has performed the documentation for this encounter in the presence of and acting as a scribe for Ramón Grijalva MD. I performed the above scribed service and agree with the accuracy of the documentation in this encounter. Reviewed and signed by: Ramón Grijalva MD Dermatology [facility] documented in this encounter Plan of Treatment Not on file documented as of this encounter Visit Diagnoses Diagnosis Seborrheic keratosis, inflamed Inflamed seborrheic keratosis SK (seborrheic keratosis) Other seborrheic keratosis documented in this encounter Care Teams Gas Plumbing Inspector Relationship Specialty Start Date End Date Roxy Mehta MD [address] [address] PCP - General 02/23/10 documented as of this encounter
--- OUTSIDE RECORDS SUMMARY | 2023-11-06 03:10 | XMS_ITS | Encounter Summary ---
Author Organization [facility] Address [facility] [place] [address] Care Team Providers Care Editor House Organ Name Role Phone Roxy Mehta MD Primary Care Provider [phone] Encounter Details Date Type Department Care Team (Late st Contact Info) Description 12/10/2020 1:00 PM EDT Office Visit Hematology/Oncology at [address] [phone] Chris Jacobson MD [facility] DR [place] [address] Flor Coleman APRN [address] [place] [address] DR HEMATOLOGY ONCOLOGY [place], [place] [id number] Iron deficiency anemia, unspecified iron deficiency anemia [...] female who I am seeing in the [facility]. She has a history of chronic [...] fluticasone propionate (Flonase Allergy Relief) 50 mcg/actuation [place], Suspension, Daily, Disp: , Rfl: ??? levothyroxine [...] thrombocytosis documented in this encounter Care Teams Editor House Organ Relationship Specialty Start Date End Date Roxy Mehta MD [address] [facility] [place] [address] PCP - General 02/23/10 documented as of this encounter
--- OUTSIDE RECORDS SUMMARY | 2023-11-06 03:10 | XMS_ITS | Encounter Summary ---
Author Organization [facility] [place] [address] Care Team Providers Care Machinist Name Role Phone Roxy Mehta MD Primary Care Provider [phone] Encounter Details Date Type Department Care Team (Latest Contact Info) Description 06/17/2021 10:00 AM EDT Office Visit Hematology/Oncology at [address] [address] Chris Jacobson MD [facility] DR [place] [address] Samantha Pardo APRN [facility] DR [place] [address] Iron deficiency anemia, unspecified iron deficiency anemia [...] female who I am seeing in the [facility]. She has been followed by hematology intermittently [...] Rfl: ??? fluticasone propionate (Flonase) 50 mcg/actuation [place], Suspension, Daily, Disp: , Rfl: ??? levothyroxine [...] Results * (ABNORMAL) CBC (with Diff) (06/11/2021) White Blood Cell 8.00 Red Blood Cell 4.72 Hemoglobin 13.5 Hematocrit 42.6 Platelet 497(H) ANC 4.49 Ferritin 35 Iron 68 Blood 06/11/2021 Historical Provider HEMATOLOGY ORDERA BLES documented in this encounter Visit Diagnoses Diagnosis Iron deficiency anemia, unspecified iron deficiency anemia type Reactive thrombocytosis documented in this encounter Care Teams Machinist Relationship Specialty Start Date End Date Roxy Mehta MD [address] [place] [address] PCP - General 02/23/10 documented as of this encounter
--- OUTSIDE RECORDS SUMMARY | 2023-11-06 03:10 | XMS_ITS | Encounter Summary ---
Author Organization [facility] Address [facility] [place] [address] Care Team Providers Care Able Bodied Tankerman Name Role Phone Roxy Mehta MD Primary Care Provider [phone] Encounter Details Date Type Department Care Team (Late st Contact Info) Description 05/08/2020 [place] [phone] Abimael Mascorro MD [facility] [place] [address] REED (dyspnea on exertion); Acute pulmonary embolism [...] type documented in this encounter Care Teams Able Bodied Tankerman Relationship Specialty Start Date End Date Roxy Mehta MD [address] [place] [address] [address] [place] [address] PCP - General 02/23/10 documented as of this encounter
--- OUTSIDE RECORDS SUMMARY | 2023-11-06 03:10 | XMS_ITS | Encounter Summary ---
Author Organization [facility] Address [facility] [place] [address] Care Team Providers Care Media Sales Representative Name Role Phone Roxy Mehta MD Primary Care Provider [phone] Encounter Details Date Type Department Care Team (Late st Contact Info) Description 10/30/2017 Telephone Dermatology at [facility] [address] [place] [address] Joyce Truong MD [facility] [place] [address] Social History Tobacco Use Types Packs/Day Years [...] a call to the number provided of [phone] and left a message with the correct number to contact Yina at [phone]. documented in this encounter Plan of Treatment Not on file documented as of this encounter Visit Diagnoses Not on filedocumented in this encounter Care Teams Media Sales Representative Relationship Specialty Start Date End Date Roxy Mehta MD [address] [place] [address] PCP - General 02/23/10 documented as of this encounter
--- OUTSIDE RECORDS SUMMARY | 2023-11-06 03:10 | XMS_ITS | Encounter Summary ---
Author Organization [facility] [place] [address] Care Team Providers Care Senior Compensation Analyst Name Role Phone Roxy Mehta MD Primary Care Provider [phone] Encounter Details Date Type Department Care Team (Latest Contact Info) Description 09/02/2020 11:00 AM EDT TH Visit (TeleHealth) [place]ematology [place] [address] Wendy Espana MD [facility] [address] [place] [address] Recurrent pulmonary embolism; Iron deficiency anemia, unspecified [...] were not included. [facility] [place], [place] [address] THROMBOSIS CONSULTATION DATE OF VISIT 09/02/2020 Patient [...] epigastric discomfort since Thanksgiving last year. Around Karissa she hasstarted to not feeling well, fatigue [...] 2015 small capsule study [place] [facility] which revealed no sourceof chronic blood losses. [...] ENDOSCOPY performed by Darlyn Escalante MD at [facility] ENDOSCOPY ??? PRO BONE MARROW ASPIRATION W/BX THROUGH SAME INCISION/SITE Left 03/18/2015 ([facility]) BONE MARROW ASP PERFORMED W/BX THRU BX INCISION performed by Chris Jacobson MD at [facility] OSC ??? PRO BONE MARROW BX, NEEDLE/TROCAR Left 03/18/2015 ([facility]) BONE MARROW,BIOPSY performed by Chris Jacobson MD at [facility] OSC TKA Left MEDICATIONS Current Outpatient Medications on File Prior to Visit Medication Sig Dispense Refill ??? fluticasone propionate (Flonase Allergy Relief) 50 mcg/actuation [place], Suspension Daily ??? levothyroxine (Synthroid) 50 mcg [...] MD Verified: ??09/02/2020 11:32 ??Hematopathologist Performed at: ??-[facility] Dept. of Pathology, [place], [place] ADDITIONAL STUDIES TEST ?(REFERENCE RANGE) ?RESULT [...] antibodies ?(IgM </= 12.5 MPL) ?<9.4 MPL Ejxi-8-npxoiepdlrcx-1 antibodies ??(IgG </= 20 units) ?<9.4 units Ksgd-1-xbxihwibdbno-1 antibodies ??(IgM </= 20 units) ?<9.4 units Homocysteine, random, plasma ?(</=15 umol/L) ?11 umol/L Factor V Leiden Mutation ?(normal) ? Not performed Prothrombin (09712 G->A) mutation (normal) ?Not performed### * Functional [...] in the setting of moderate hiatal hernia. Piercy rectal malignancy should also be ruled out [...] Pardo APRN can see her up at [facility] for the lab testing. Otherwise Patricia has to come to [facility] for her testing. Wendy Espana MD documented in this encounter Plan of Treatment Not on file documented as of this encounter Visit Diagnoses Diagnosis Recurrent pulmonary embolism Other pulmonary embolism and infarction Iron deficiency anemia, unspecified iron deficiency anemia type Reactive thrombocytosis documented in this encounter Care Teams Senior Compensation Analyst Relationship Specialty Start Date End Date Roxy Mehta MD [address] [facility] [address] [place] [address] PCP - General 02/23/10 documented as of this encounter
--- OUTSIDE RECORDS SUMMARY | 2023-11-06 03:10 | XMS_ITS | Encounter Summary ---
Author Organization [facility] Address [facility] [place] [address] Care Team Providers Care Insurance Defense Attorney Name Role Phone Roxy Mehta MD Primary Care Provider [phone] Reason for Visit * Reason Comments Skin Check Skin Lesion spots on chest now s preading to face Encounter Details Date Type Department Care Team (Late st Contact Info) Description 01/05/2017 11:15 AM EDT Office Visit Dermatology at [facility] [address] [place] [address] Joyce Truong MD [facility] [address] SYLVIA [place] [address] Giordano angioma; Seborrheic keratosis; Solar lentigo Social [...] the presence of Dr. Truong. DENISE HYDE REEL ASSEMBLERJose Maria Burgos is documenting this encounter acting as the scribe for and in the presence of Joyce Truong MD. I performed the above scribed service and agree with the accuracy of the documentation in this encounter. Joyce Truong MD Section of Dermatology [facility] documented in this encounter Plan of Treatment Not on file documented as of this encounter Visit Diagnoses Diagnosis Giordano angioma Nevus, non-neoplastic Seborrheic keratosis Other seborrheic keratosis Solar lentigo Other dyschromia documented in this encounter Care Teams Insurance Defense Attorney Relationship Specialty Start Date End Date Roxy Mehta MD [address] [facility] [place] [address] PCP - General 02/23/10 documented as of this encounter
--- OUTSIDE RECORDS SUMMARY | 2023-11-06 03:10 | XMS_ITS | Encounter Summary ---
Author Organization [facility] Address [facility] [place] [address] Care Team Providers Care Claims Auditor Name Role Phone Roxy Mehta MD Primary Care Provider [phone] Encounter Details Date Type Department Care Team (Late st Contact Info) Description 03/11/2021 1:30 PM EST Office Visit Hematology/Oncology at [address] [phone] Chris Jacobson MD [facility] DR HEMATOLOGY [place] [address] Flor Coleman APRN [address] [place] [address] DR HEMATOLOGY ONCOLOGY [place], [place] [id number] Iron deficiency anemia, unspecified iron deficiency anemia [...] this encounter Progress Notes * Flor Coleman, COAL PULVERIZING OPERATOR - 03/11/2021 1:30 PM EST Subjective: Patient ID: Patricia Liu is a 80 y.o. female. Patient Active Problem List Diagnosis Code ??? Thrombocytosis D75.839 ??? Iron deficiency anemia D50.9 ??? Recurrent pulmonary embolism I26.99 HPI The patient is a 79-year-old female who I am seeing in the [facility]. She has a history of chronic [...] been scheduled by her PCP. Vania returns [facility] today for routine follow-up. Today she says she is doing well. She has been feeling a little more fatigued in recent weeks, and thinks she needs some iron. She also loses her appetite when her iron is low. She has been taking itorally QOD. She says her PCP has already scheduled her at [facility] next week for Iron. In the [...] fluticasone propionate (Flonase Allergy Relief) 50 mcg/actuation [place], Suspension ??? levothyroxine (Synthroid) 50 mcg Tablet [...] Exam Vitals reviewed. Exam conducted with a red cap present. Constitutional: General: She is not in [...] been scheduled [facility]. [facility]. Persistent reactive [...] thrombocytosis documented in this encounter Care Teams Claims Auditor Relationship Specialty Start Date End Date Roxy Mehta MD [address] [place] [address] PCP - General 02/23/10 documented as of this encounter
--- OUTSIDE RECORDS SUMMARY | 2023-11-06 03:10 | XMS_ITS | Encounter Summary ---
Author Organization [facility] Address [facility] [place] [address] Care Team Providers Care County Judge Name Role Phone Roxy Mehta MD Primary Care Provider [phone] Reason for Visit * Consultation (Urgent) - Closed Specialty Diagnoses / Procedures Referred By Contac t Referred To Contact Pulmonology Diagnoses Pulmonary hypertension, unspecified Multiple subsegmental pulmonary emboli without acute cor pulmonale Roxy Mehta MD [address] [place] [address] [facility] Pulmonology [address] [place] [id number] Referral ID Status Reason Start Date Expiration Date V isits Requested Visits Authorized [id number] Closed Consult, Test & Treat Connection [facility] PCP Updated and/or Approved 05/07/2020 05/07/2021 6 6 Encounter Details Date Type Department Care Team (Late st Contact Info) Description 08/04/2020 2:00 PM EDT Office [place] [address] Camryn Valdez MD [facility] [place] [address] Carlton Choi MD [facility] [place] [address] REED (dyspnea on exertion) Social [...] from the original note were not included. [facility] Section of Pulmonary and Critical Care Medicine Outpatient Consultation Date of Encounter: 08/03/2020 Referring Provider: Roxy Mehta MD [address] [place] [address] [address] [facility] [place] [address] PCP: Roxy Mehta MD Reason for Evaluation: [...] future problems arise. Carlton Choi MD N [facility] PULMONOLOGY AT [facility] [address] Dept: [phone] Loc: [phone] * Camryn Valdez MD - 08/04/2020 2:00 [...] abnormality documented in this encounter Care Teams County Judge Relationship Specialty Start Date End Date Roxy Mehta MD [address] [place] [address] PCP - General 02/23/10 documented as of this encounter
--- OUTSIDE RECORDS SUMMARY | 2023-11-06 03:10 | XMS_ITS | Encounter Summary ---
[place] [address] Care Team Providers Care Electrician Helper Name Role Phone Roxy Mehta MD Primary Care Provider [phone] Reason for Visit * Reason Comments Advice Only * Consultation (Urgent) - Closed Specialty Diagnoses / Procedures Referred By Contoziel t Referred To Contact Hematology and Oncology Diagnoses Multiple subsegmental pulmonary emboli without acute cor pulmonale Anemia, unspecified Essential (hemorrhagic) thrombocythemia Roxy Mehta MD [address] [place] [address] [facility] Hem Onc [address] [place] [address] Referral ID Status Reason Start Date Expiration Date V isits Requested Visits Authorized [id number] Closed Consult, Test & Treat Connection Center PCP Updated and/or Approved 05/11/2020 05/11/2021 1 1 Encounter Details Date Type Department Care Team (Latest Contact Info) Description 08/11/2020 11:00 AM EDT Office Visit Hematology [place] [address] Wendy Espana MD [facility] [address] [place] [address] VTE (venous thromboembolism) (Primary Dx); Iron deficiency [...] were not included. [facility] [place] [address] THROMBOSIS CONSULTATION DATE OF VISIT 08/11/2020 Patient [...] 2015 small capsule study was done at [facility] which revealed no sourceof chronic blood losses. [...] ENDOSCOPY performed by Darlyn Escalante MD at [facility] ENDOSCOPY ??? PRO BONE MARROW ASPIRATION W/BX THROUGH SAME INCISION/SITE Left 03/18/2015 ([facility]) BONE MARROW ASP PERFORMED W/BX THRU BX INCISION performed by Chris Jacobson MD at [facility] OSC ??? PRO BONE MARROW BX, NEEDLE/TROCAR Left 03/18/2015 ([facility]) BONE MARROW,BIOPSY performed by Chris Jacobson MD at [facility] OSC TKA Left MEDICATIONS Current Outpatient Medications on File Prior to Visit Medication Sig Dispense Refill ??? fluticasone propionate (Flonase Allergy Relief) 50 mcg/actuation [place], Suspension Daily ??? levothyroxine (Synthroid) 50 mcg [...] of recurrent pulmonary embolism, who was referred [facility] for evaluation of pulmonary [...] is reasonable. However, the result won't likely changer fixer. She is interested to proceed with the [...] Results * Ferritin (08/11/2020 12:37 PM EDT) [facility] Ferritin 32 30 - 400 ng/mL [facility] Comment: Pediatric reference ranges not verified at [facility], interpret with caution. Reference ranges for females greater than 50 years of age approach values for men, i.e., 30-400 ng/mL. Blood specimen (specimen) 08/11/2020 12:37 PM EDT 08/11/2020 1:14 PM EDT Narrative Resulting Agency Comment Spec In Lab Wendy Espana MD CHEMISTRY ORDERABLES Performing Organization Address City/[facility]/ZIP Co de Phone Number [facility] [place] [address] * Iron and TIBC (08/11/2020 12:37 PM [...] Espana MD CHEMISTRY ORDERABLES Performing Organization Address City/[facility] Co de Phone Number [facility] [place] [address] documented in this encounter Visit Diagnoses Diagnosis VTE (venous thromboembolism)- Primary Embolism and thrombosis of unspecified site Iron deficiency anemia, unspecified iron deficiency anemia type Reactive thrombocytosis documented in this encounter Care Teams Electrician Helper Relationship Specialty Start Date End Date Roxy Mehta MD [address] [place] [address] PCP - General 02/23/10 documented as of this encounter
--- OUTSIDE RECORDS SUMMARY | 2023-11-06 03:10 | XMS_ITS | Encounter Summary ---
Author Organization [place] [address] Care Team Providers Care Rim Technician Name Role Phone Roxy Mehta MD Primary Care Provider [phone] Encounter Details Date Type Department Care Team (Late st Contact Info) Description 04/28/2020 Ancillary Procedure [place] [id number] Roxy Mehta MD [address] [place] [address] Social History Tobacco Use Types [...] Abdomen Pelvis (04/28/2020 12:00 AM EST) Narrative [facility] - 05/07/2020 4:49 PM EST This exam is auto-finalizing. It's purpose is for storage only. Roxy Mehta MD [facility] FILM LIBRARY ORD ERABLES [facility] [place], [place] documented in this encounter Visit Diagnoses Not on filedocumented in this encounter Care Teams Rim Technician Relationship Specialty Start Date End Date Roxy Mehta MD [address] [place] [address] [address] [place] [address] PCP - General 02/23/10 documented as of this encounter
--- OUTSIDE RECORDS SUMMARY | 2023-11-06 03:10 | XMS_ITS | Encounter Summary ---
Author Organization [facility] Address [facility] [place] [address] Care Team Providers Care Transportation Director Name Role Phone Roxy Mehta MD Primary Care Provider [phone] Encounter Details Date Type Department Care Team (Late st Contact Info) Description 05/15/2020 Orders [place] [address] Jb Gross MD [facility] [place] [address] Pulmonary hypertension (Primary Dx) Social History Tobacco [...] / FVC LLN 63 % COMPAS PFT [id number] Actual Pre-BD 2.40 L/s COMPAS PFT [id number] Pre-BD % of Predicted 157 % COMPAS PFT [id number] Predicted 1.53 L/s COMPAS PFT [id number] Pre-BD Z-Score 1.14 COMPAS PFT DLCO Hb [...] diseases documented in this encounter Care Teams Transportation Director Relationship Specialty Start Date End Date Roxy Mehta MD [address] [place] [address] PCP - General 02/23/10 documented as of this encounter
--- OUTSIDE RECORDS SUMMARY | 2023-11-06 03:10 | XMS_ITS | Clinical Summary ---
Author Organization [facility] Address [facility] [place] [address] Care Team Providers Care Chinese Language Professor Name Role Phone Roxy Mehta MD Primary Care Provider [phone] Allergies No known active allergies Medications Medication Sig Dispensed Refills Start Date End Date Status apixaban (Eliquis) 5 mg Tablet Take 2.5 mg by mouth 2 times daily. Active ferrous sulfate 325 mg (65 mg iron) Tablet Take 325 mg by mouth daily (with breakfast). Active losartan potassium (LOSARTAN ORAL) Take 50 mg by mouth daily. Active fluticasone propionate (Flonase) 50 mcg/actuation [place], Suspension Daily 07/12/2012 Active levothyroxine (Synthroid) 50 [...] Care Team Description 10/19/2023 Telephone Hematology/Oncology at [address] [address] Enid Romero RN from Last [...] series) 12/03/2023 01/22/2008, 03/16/2006, 02/08/2005 Care Teams Chinese Language Professor Relationship Specialty Start Date End Date Roxy Mehta MD [address] [place], [place] [id number] PCP - General 02/23/10
--- OUTSIDE RECORDS SUMMARY | 2023-11-06 03:11 | XMS_ITS | Encounter Summary ---
Author Organization [facility] [place] [address] Care Team Providers Care Library Media Assistant Name Role Phone Roxy Mehta MD Primary Care Provider [phone] Encounter Details Date Type Department Care Team (Latest Contact Info) Description 09/12/2016 1:24 PM EDT - 09/12/2016 1:36 PM EDT Hospital Encounter Hematology [place] [address] Iron deficiency anemia due to chronic blood [...] End Date fluticasone propionate (Flonase) 50 mcg/actuation [place], Suspension Daily 07/12/2012 cholecalciferol, Vitamin D3, 50 [...] to chronic blood loss COMPREHENSIVE METABOLIC PANEL STAT 09/12/2016 1:47 PM EDT Iron deficiency anemia due to chronic blood loss documented in this encounter Results * T4, free (09/12/2016 1:47 PM EDT) [facility] Free T4 1.10 0.93 - 1.70 ng/dL [facility] Blood specimen (specimen) Venous Draw / Unknown 09/12/2016 1:47 PM EDT 09/12/2016 2:28 PM EDT Narrative Resulting Agency Comment Spec In Lab Samantha Pardo APRN CHEMISTRY ORDERABLES [facility] [place] [address] * Scan, Peripheral Blood (09/12/2016 1:47 PM EDT) [facility] Plat estimate Increased [facility] RBC Morphology Abnormal [facility] Microcyte 1-5 /HPF [facility] Hypochromia Slight [facility] Polychromasia Present >5/HPF [facility] Ovalocytes 1-5 /HPF [facility] Plat, Giant Less than 1 /HPF [facility] Blood specimen (specimen) 09/12/2016 1:47 PM EDT 09/12/2016 1:54 PM EDT Narrative Resulting Agency Comment Spec In Lab Samantha Pardo APRN HEMATOLOGY ORDERABLE S Performing Organization Address City/[facility]/ZIP Co de Phone Number [facility] [place] [address] * (ABNORMAL) Differential, Automated (09/12/2016 1:47 PM EDT) [facility] Neutrophil % 52.9 % [facility] Neutrophil Absolute 5.48 1.70 - 6.10 x10(3)/ L [facility] Lymph % 36.1 % [facility] Lymphocytes Abs 3.7(H) 0.9 - 3.2 x10(3)/ L [facility] Monocyte % 6.9 % [facility] Monocyte Abs 0.7 0.3 - 0.9 x10(3)/ L [facility] Eos % 2.7 % [facility] Eosinophils Abs 0.3 0.0 - 0.4 x10(3)/[facility] Basophil % 0.9 % [facility] Baso Absolute 0.1 0.0 - 0.1 x10(3)/[facility] Immature Gran % 0.50 % [facility] Comment: Immature granulocytes(IG's)percentage and absolute count will include metamyelocytes, myelocytes, and promyelocytes. Blood smears from CBCs yielding IG's will be scanned manually for concordance. If this scan disagrees with the automated IG or if promyelocytes are noted, a manual differential will be performed. Immature Gran Absolute 0.05(H) 0.00 - 0.04 x10(3)/ L [facility] Blood specimen (specimen) 09/12/2016 1:47 PM EDT 09/12/2016 1:54 PM EDT Narrative Resulting Agency Comment Spec In Lab Samantha Pardo ELEVATOR SERVICE MECHANIC HEMATOLOGY ORDERABLE S [facility] [place] [address] * (ABNORMAL) Hemogram (09/12/2016 1:47 PM EDT) White Blood Cell 10.3(H) 4.0 - 9.5 x10(3)/ L [facility] Red Blood Cell 3.34(L) 4.00 - 5.21 x10(6)/mc L [facility] Hemoglobin 8.5(L) 11.7 - 15.5 gm/dL [facility] Hematocrit 28.3(L) 35.7 - 45.8 % [facility] Mean Cell Volume 84.7 82.6 - 94.4 fL [facility] Mean Cell Hemoglobin 25.4(L) 27.1 - 32.0 pg [facility] Mean Cell Hemoglobin Concentration 30.0(L) 31.7 - 35.0 gm/dL [facility] Platelet 928(H) 145 - 357 x10(3)/mc L [facility] RDW Standard Deviation 47.8(H) 37.0 - 46.0 fL [facility] RDW coefficient of variation 15.8(H) 11.5 - 14.1 % [facility] Mean Platelet Volume 8.4 7.6 - 12.9 fL [facility] NRBC% auto 0.0 % [facility] NRBC Absolute 0.000 0.000 - 0.000 x10(3)/mc L [facility] Blood specimen (specimen) 09/12/2016 1:47 PM EDT 09/12/2016 1:54 PM EDT Narrative Resulting Agency Comment Spec In Lab Samantha Pardo APRN HEMATOLOGY ORDERABLE S Performing Organization Address City/State/[facility] Co de Phone Number [facility] [place] [address] * (ABNORMAL) TSH (09/12/2016 1:47 PM EDT) Thyroid Stimulating Hormone 4.27(H) 0.27 - 4.20 mlU/ML [facility] Blood specimen (specimen) 09/12/2016 1:47 PM EDT 09/12/2016 1:54 PM EDT Narrative Resulting Agency Comment Spec In Lab Samantha D Schaal ELEVATOR SERVICE MECHANIC CHEMISTRY ORDERABLES Performing Organization Address City/[facility]/ZIP Co de Phone Number [facility] [place] [address] * Lactate Dehydrogenase (09/12/2016 1:47 PM EDT) Lactate Dehydrogenase 163 110 - 220 unit/L [facility] Blood specimen (specimen) 09/12/2016 1:47 PM EDT 09/12/2016 1:54 PM EDT Narrative Resulting Agency Comment Spec In Lab Samantha Pardo ELEVATOR SERVICE MECHANIC CHEMISTRY ORDERABLES Performing Organization Address [facility] Co de Phone Number [facility] [place] [address] * (ABNORMAL) Reticulocyte Count (09/12/2016 1:47 PM EDT) Reticulocyte % 4.4(H) 0.7 - 2.5 % [facility] Retic Abs # 0.150(H) 0.020 - 0.110 x10(6)/mc L [facility] Immature Retic% 27.6(H) 0.5 - 13.8 % [facility] Reticulated Hgb 22.5(L) 29.8 - 39.4 pg [facility] Blood specimen (specimen) 09/12/2016 1:47 PM EDT 09/12/2016 1:54 PM EDT Narrative Resulting Agency Comment Spec In Lab Samantha Pardo ELEVATOR SERVICE MECHANIC HEMATOLOGY ORDERABLE S Performing Organization Address City/[facility]/ZIP Co de Phone Number [facility] [place] [address] * (ABNORMAL) Iron and TIBC (09/12/2016 1:47 PM EDT) Iron 20(L) 30 - 150 mcg/dL [facility] TIBC 456(H) 250 - 450 mcg/dL [facility] Iron Saturation 4(L) 20 - 50 % [facility] Blood specimen (specimen) 09/12/2016 1:47 PM EDT 09/12/2016 1:54 PM EDT Narrative Resulting Agency Comment Spec In Lab Samantha Pardo ELEVATOR SERVICE MECHANIC CHEMISTRY ORDERABLES Performing Organization Address [facility]/ZIP Co de Phone Number [facility] [place] [address] * (ABNORMAL) Ferritin (09/12/2016 1:47 PM EDT) Ferritin 25(L) 30 - 400 ng/mL [facility] Comment: Pediatric reference ranges not verified at [facility], interpret with caution. Reference ranges for females greater than 50 years of age approach values for men, i.e., 30-400 ng/mL. Blood specimen (specimen) 09/12/2016 1:47 PM EDT 09/12/2016 1:54 PM EDT Narrative Resulting Agency Comment Spec In Lab Samantha Pardo ELEVATOR SERVICE MECHANIC CHEMISTRY ORDERABLES Performing Organization Address [facility] Co de Phone Number [facility] [place] [address] * (ABNORMAL) Comprehensive metabolic panel (non-fasting) (09/12/2016 1:47 PM EDT) Pathologist [facility] Glucose 90 65 - 199 mg/dL [facility] Comment:Diabetes: >=200 mg/d L plus symptoms Blood Urea Nitrogen 22(H) 8 - 18 mg/dL [facility] Creatinine 0.89 0.70 - 1.20 mg/dL [facility] Comment: Please note that the pediatric reference intervals supplied above were not validated at [facility]. Results from pediatric patients should be interpreted in conjunction to the patient's age, height and muscle mass. Sodium 139 135 - 145 mmol/L [facility] Potassium 4.2 3.5 - 5.0 mmol/L [facility] Comment: Please note: ??Patients with WBC >100,000 may have falsely elevated Potassium levels. ??For accurate Potassium quantification in these patients send serum separator tube (gold top) for subsequent determinations. ??Contact the Clinical Chemistry Laboratory if there are any questions. Chloride 100 98 - 107 mmol/L [facility] Carbon Dioxide 20(L) 22 - 31 mmol/L [facility] Anion Gap 19(H) 5 - 15 mmol/L [facility] Calcium 9.5 8.5 - 10.5 mg/dL [facility] Protein, Total 7.4 6.1 - 8.0 gm/dL [facility] Albumin 4.4 3.2 - 5.2 gm/dL [facility] Aspartate Aminotransferase 19 0 - 30 unit/L [facility] Alanine Aminotransferase 13 0 - 30 unit/L [facility] Alkaline Phosphatase 131(H) 40 - 104 unit/L [facility] Bilirubin, Total <0.2(L) 0.2 - 1.3 mg/dL [facility] Bilirubin, Direct <0.1 0.0 - 0.3 mg/dL [facility] Est Glomerular Filtration Rate >60 >=60 [facility] Comment: This estimated GFR (eGFR) [...] the following links into your internet browser. [email or web address] Blood specimen (specimen) 09/12/2016 1:47 PM EDT 09/12/2016 1:54 PM EDT Narrative Resulting Agency Comment Spec In Lab Samantha Pardo APRN CHEMISTRY ORDERABLES [facility] [place] [address] documented in this encounter Visit Diagnoses Diagnosis Iron deficiency anemia due to chronic blood loss Iron deficiency anemia secondary to blood loss (chronic) documented in this encounter Care Teams Library Media Assistant Relationship Specialty Start Date End Date Roxy Mehta MD [address] [facility] [place] [address] PCP - General 02/23/10 documented as of this encounter
--- OUTSIDE RECORDS SUMMARY | 2023-11-06 03:11 | XMS_ITS | Encounter Summary ---
Author Organization [facility] Address [facility] [place] [address] Care Team Providers Care Executive Administrator Name Role Phone Roxy Mehta MD Primary Care Provider [phone] Reason for Visit * Auth/Cert Specialty Diagnoses / Procedures Referred By Kishore t Referred To Contact Diagnoses Thrombocythemia Procedures PRO BONE MARROW ASPIRATION W/BX THROUGH SAME INCISION/SITE PRO BONE MARROW BX, NEEDLE/TROCAR (OSC MSURG) BONE MARROW ASP PERFORMED W/BX THRU BX INCISION ([facility] MSURG) BONE MARROW,BIOPSY Referral ID Status Reason Start Date Expiration Date Visits Re quested Visits Authorized [id number] 1 1 Encounter Details Date Type Department Care Team (Latest Contact Info) Description 03/18/2015 10:08 AM EST - 03/18/2015 1:11 PM [facility] Hospital Encounter [place] [id number] Chris Jacobson MD [facility] [address] HEMATOLOGY [place] [address] Discharge Disposition: Home Social History Tobacco Use [...] or on a weekend: Call the [facility] frame table operator at and ask for the physician senior construction project manager covering for your doctor. Instructions following sedation [...] drainage occurs, please contact your M. D. [facility] [address] ??? [place] [address] ??? [phone] ??? [email or web address] ??? [facility] ??? [facility] ??? [facility] documented in this encounter Medications at Time of Discharge Medication Sig Dispensed Refills Start Date End Date fluticasone propionate (Flonase) 50 mcg/actuation [place], Suspension Daily 07/12/2012 aspirin 81 mg Tablet, [...] procedure. Discharge to: Home Pita Garland, MSN, PICKLING OPERATOR Nurse Practitioner Section of Hematology/Oncology [facility] Office phone: documented in this encounter Procedure Notes * Pita Garland APRN - 03/18/2015 12:33 PM ESTProcedure(s): BONE MARROW ASPIRATION W BIOPSY Pre-Procedure Diagnose(s): Thrombocytosis BONE MARROW BIOPSY AND ASPIRATION PROCEDURE NOTE Bone Marrow Biopsy & Aspiration with Conscious Sedation Date/Time of Procedure: 03/18/15 at 12:30pm Proceduralist: PITA GARLAND APRN, RN, MS, DRINKING WATER TECHNICIAN DIAGNOSIS: Thrombocytosis Pre-Procedure: (x) Consent signed and [...] with Physician as instructed. Pita Garland, MSN, PICKLING OPERATOR Nurse Practitioner Section of Hematology/Oncology [facility] Office phone: documented in this encounter Plan [...] chromo report acquired (03/18/2015 3:28 PM EST) [facility] [address] Cytogenetics Acquired Report Final Report ? [id number] Specimen Type: Bone Marrow Specimen Condition: ~3ml, [...] Ward SALCIDO, Ph.D., [facility] Director, Cytogenetics [facility] 03/18/2015 3:28 PM EST Chris Jacobson MD HEMATOLOGY ORDERABLE S [facility] * Bone Marrow Final Report (03/18/2015 12:31 PM EST) Final Diagnosis [id number] ?Location: The signing pathologist has (i) examined the relevant preparation(s) for the specimen(s) and (ii) rendered or confirmed the diagnosis(es). . ?Molecular Genetics RESULTS DIAGNOSIS 1. Thrombocytosis, by history 2. Normocellular marrow with maturing trilineage hematopoiesis. No morphologic features of involvement by a myeloproliferative neoplasm ??are seen. Cytogenetics and molecular studies pending. Myeloid Sequencing Panel (54-Gene Panel) SPECIMEN: ??[id number] Analysis: ??Examination of DNA extracted from peripheral blood or bone marrow aspirates for somatic mutation analysis. Results: ??This sample failed QC metrics post-sequencing. ?? If testing is warranted as per clinical indication, please contact the attending pathologist in order to resubmit an alternative tissue sample. Reviewed by: Ana Betts, PhD, Genomic Front Clerk ?04/10/15 16:41 Reviewed by: Tre Whitlock, PhD, [facility], [facility] (t, 04/13/15 15:34) Verified date: ??04/24/15 ??JERZY Verified by: ?Monica SALCIDO, Josesito ?(Electronic Signature) ? Bone Marrow Final DIAGNOSIS 1. Thrombocytosis, by history 2. Normocellular marrow with maturing trilineage hematopoiesis. No morphologic features of involvement by a myeloproliferative neoplasm ??are seen. Cytogenetics and molecular studies pending. 03/19/15 [facility] 03/20/15 Verified by: ? Monica SALCIDO, Josesito ?Hematopathologist ?(Electronic Signature) The attending pathologist whose signature appears on this report has reviewed all diagnostic slides and has edited the gross and/or microscopic portion of the report in rendering the final pathologic diagnosis. . DISCUSSION A 54 gene myeloid panel is ordered which includes JAK2, CALR, and BCR-ABL. Please correlate with results. PERIPHERAL SMEAR WBC 8.31K/ul; RBC 4.04b603/ul; Hgb 13.0; MCV 84.2; RDW 14.1; PLT [...] for myeloproliferative disorder 04/24/2015 4:46 PM EST [facility] BONE MARROW STRUCTURE / Unknown 03/18/2015 12:31 PM EST 03/18/2015 12:31 PM EST Chris Jacobson MD PATHOLOGY/CYTOLOGY O RDERABLES Performing Organization Address City/[facility]/ZIP Co de Phone Number [facility] ROM[facility] [place] [address] * Iron Stain, Bone Marrow (03/18/2015 12:31 PM EST) Bone Marrow Iron Stain See Comment [facility] Comment:See Bone Marrow Repo rt [id number] under Hematopathology Reports. Bone marrow specimen (specimen) 03/18/2015 12:31 PM EST 03/18/2015 12:53 PM EST Narrative Resulting Agency Comment Spec In Lab Chris Jacobson MD HEMATOLOGY ORDERABLE S [facility] MAKALEXANDRUIUM * Differential, Automated (03/18/2015 10:00 AM EST) Neutrophil % 51.6 % CERNER MILLENNIUM Neutrophil Absolute 4.29 1.50 - 6.30 x10(3)/mcL CERNER MILLENNIUM Lymph % 36.7 % CERNER MILLENNIUM Lymphocytes Abs 3.0 1.0 - 3.6 x10(3)/mcL CERNER MILLENNIUM Monocyte % 7.7 % CERNER MILLENNIUM Monocyte Abs 0.6 0.2 - 1.0 x10(3)/mcL CERNER MILLENNIUM Eos % 2.9 % CERNER MILLENNIUM Eosinophils Abs 0.2 0.0 - 0.5 x10(3)/mcL CERNER MILLENNIUM Basophil % 0.7 % CERNER MILLENNIUM Baso Absolute 0.1 0.0 - 0.2 x10(3)/mcL CERNER MILLENNIUM Immature Gran % 0.40 % CERN ER MILLENNIUM Comment: Immature granulocytes(IG's)percentage and absolute count will include metamyelocytes, myelocytes, and promyelocytes. Blood smears from CBCs yielding IG's will be scanned manually for concordance. If this scan disagrees with the automated IG or if promyelocytes are noted, a manual differential will be performed. Immature Gran Absolute 0.03 0.00 - 0.05 x10(3)/mcL CERNER MILLENNIUM Blood specimen (specimen) 03/18/2015 10:00 AM EST 03/18/2015 11:57 AM EST Narrative Resulting Agency Comment Spec In Lab Chris Jacobson MD HEMATOLOGY ORDERABLE S CERNER MILLENNIUM * (ABNORMAL) Hemogram (03/18/2015 10:00 AM EST) White Blood Cell 8.3 4.0 - 10.0 x10(3)/mc L CERNER MILLENNIUM Red Blood Cell 4.69 3.93 - 5.22 x10(6)/mc L CERNER MILLENNIUM Hemoglobin 13.0 11.2 - 15.7 gm/dL CERNER MILLENNIUM Hematocrit 39.5 34.0 - 45.0 % CERNER MILLENNIUM Mean Cell Volume 84.2 79.0 - 94.0 fL CERNER MILLENNIUM Mean Cell Hemoglobin 27.7 26.6 - 32.2 pg CERNER MILLENNIUM Mean Cell Hemoglobin Concentration 32.9 32.0 - 36.5 gm/dL CERNER MILLENNIUM Platelet 600(H) 145 - 370 x10(3)/mc L CERNER MILLENNIUM RDW Standard Deviation 43.1 35.0 - 46.0 fL CERNER MILLENNIUM RDW coefficient of variation 14.1 10.9 - 14.4 % CERNER MILLENNIUM Mean Platelet Volume 9.6 9.0 - 12.0 fL E[facility] ROMERO [...] RN) documented in this encounter Care Teams Executive Administrator Relationship Specialty Start Date End Date Roxy Mehta MD [address] [facility] [place] [address] PCP - General 02/23/10 documented as of this encounter
--- OUTSIDE RECORDS SUMMARY | 2023-11-06 03:11 | XMS_ITS | Encounter Summary ---
Author Organization [facility] Address [facility] [place] [address] Care Team Providers Care Gas Engine Performance Engineer Name Role Phone Roxy Mehta MD Primary Care Provider [phone] Encounter Details Date Type Department Care Team (Late st Contact Info) Description 06/24/2008 Orders [place] [address] Kimberley Coffman MD [facility] [place] [address] Social History Tobacco Use Types Packs/Day Years [...] 10:13 AM EDT) Surgical Pathology Report [id number] ? Location: OPW The signing pathologist has (i) examined the relevant preparation(s) for the specimen(s) and (ii) rendered or confirmed the diagnosis(es). . ?Pathology Surgical Pathology Final Report Clinical Information Specimen Submitted: A - Left breast Clinical History: New calcifications Clinical Diagnosis: FCD DCIS Report to: Roxy Mehta MD [facility] [address] [place], [place] ??[address] Gross Description Specimen: ?Received in two containers. [...] in rendering the final pathologic diagnosis. [facility] 06/24/2008 10:1 3 AM EDT Kimberley Rose MD PATHOLOG Y/CYTOLOGY ORDERABLES [facility] documented in this encounter Visit Diagnoses Not on filedocumented in this encounter Care Teams Gas Engine Performance Engineer Relationship Specialty Start Date End Date Roxy Mehta MD [address] [place] [address] PCP - General 02/23/10 documented as of this encounter
--- OUTSIDE RECORDS SUMMARY | 2023-11-06 03:11 | XMS_ITS | Encounter Summary ---
Author Organization [facility] [place] [address] Care Team Providers Care Bottom Pounder Cement Shoes Name Role Phone Roxy Mehta MD Primary Care Provider [phone] Reason for Visit * Reason Comments Anemia Encounter Details Date Type Department Care Team (Latest Contact Info) Description 09/15/2016 8:17 AM EDT - 09/15/2016 11:59 PM EDT Hospital Encounter [place] [address] Iron deficiency anemia, unspecified iron deficiency anemia [...] Date fluticasone propionate (Flonase) 50 mcg/actuation [place], Suspension Daily 07/12/2012 cholecalciferol, Vitamin D3, 50 [...] mL/hr documented in this encounter Care Teams Bottom Pounder Cement Shoes Relationship Specialty Start Date End Date Roxy Mehta MD [address] [place] [address] [address] [place] [address] PCP - General 02/23/10 documented as of this encounter
--- OUTSIDE RECORDS SUMMARY | 2023-11-06 03:11 | XMS_ITS | Encounter Summary ---
Author Organization [facility] [place] [address] Care Team Providers Care Ur Coordinator Name Role Phone Roxy Mehta MD Primary Care Provider [phone] Encounter Details Date Type Department Care Team (Late st Contact Info) Description 09/12/2016 2:45 PM EDT Office Visit Hematology [place] [address] Chris Jacobson MD [facility] [address] [place] [address] Samantha Pardo APRN [facility] [address] [place] [address] Shauna Cuadra [facility] DR HEMATOLOGY/[place] [address] Thrombocytosis; Elevated TSH Social History Tobacco Use [...] She was admitted for 2-[address] [facility]. She was started on apixaban for anticoagulation [...] knees 5. Pulmonary Emboli Medications Medications 09/12/16 8534 Medication Sig Taking? apixaban (ELIQUIS) 5 mg [...] cytogenetics Myeloid Sequencing Panel (54-Gene Panel) SPECIMEN: ??[id number] Analysis: ??Examination of DNA extracted from peripheral [...] questions/concerns. Shauna Cuadra DO Hematology-Oncology Fellow Pager [phone] 09/12/2016 4:31 PM CC. Roxy Mehta MD [...] Reticulocyte % 3.1(H) 0.7 - 2.5 % [facility] Retic Abs # 0.140(H) 0.020 - 0.110 x10(6)/mc L [facility] Immature Retic% 22.7(H) 0.5 - 13.8 % [facility] Reticulated Hgb 36.4 29.8 - 39.[address] [facility] Blood specimen (specimen) 10/03/2016 9:24 AM EDT 10/03/2016 9:27 AM EDT Narrative Resulting Agency Comment Spec In Lab Chris Jacobson MD HEMATOLOGY ORDERABLE S Performing Organization Address City/[facility]/ZIP Co de Phone Number [facility] [place] [address] * Ferritin (10/03/2016 9:24 AM EDT) Ferritin 400 30 - 400 ng/mL [facility] Comment: Pediatric reference ranges not verified at [facility], interpret with caution. Reference ranges for females greater than 50 years of age approach values for men, i.e., 30-400 ng/mL. Blood specimen (specimen) 10/03/2016 9:24 AM EDT 10/03/2016 9:27 AM EDT Narrative Resulting Agency Comment Spec In Lab Chris Jacobson MD CHEMISTRY ORDERABLES Performing Organization Address [facility]/ZIP Co de Phone Number [facility] [place] [address] * Iron and TIBC (10/03/2016 9:24 AM EDT) [facility] Iron 74 30 - 150 mcg/dL [facility] TIBC 358 250 - 450 mcg/dL [facility] Iron Saturation 21 20 - 50 % [facility] Blood specimen (specimen) 10/03/2016 9:24 AM EDT 10/03/2016 9:27 AM EDT Narrative Resulting Agency Comment Spec In Lab Chris Jacobson MD CHEMISTRY ORDERABLES Performing Organization Address City/[facility]/ZIP Co de Phone Number [facility] [place] [address] * (ABNORMAL) Comprehensive metabolic panel (non-fasting) (10/03/2016 9:24 AM EDT) [facility] Signature Glucose 106 65 - 199 mg/dL [facility] Comment:Diabetes: >=200 mg/d L plus symptoms Blood Urea Nitrogen 14 8 - 18 mg/dL [facility] Creatinine 0.90 0.70 - 1.20 mg/dL [facility] Comment: Please note that the pediatric reference intervals supplied above were not validated at [facility]. Results from pediatric patients should be interpreted in conjunction to the patient's age, height and muscle mass. Sodium 139 135 - 145 mmol/L [facility] Potassium 4.2 3.5 - 5.0 mmol/L [facility] Comment: Please note: ??Patients with WBC >100,000 may have falsely elevated Potassium levels. ??For accurate Potassium quantification in these patients send serum separator tube (gold top) for subsequent determinations. ??Contact the Clinical Chemistry Laboratory if there are any questions. Chloride 97(L) 98 - 107 mmol/L [facility] Carbon Dioxide 22 22 - 31 mmol/L [facility] Anion Gap 20(H) 5 - 15 mmol/L [facility] Calcium 9.8 8.5 - 10.5 mg/dL [facility] Protein, Total 7.5 6.1 - 8.0 gm/dL [facility] Albumin 4.3 3.2 - 5.2 gm/dL [facility] Aspartate Aminotransferase 13 0 - 30 unit/L [facility] Alanine Aminotransferase 16 0 - 30 unit/L [facility] Alkaline Phosphatase 115(H) 40 - 104 unit/L [facility] Bilirubin, Total <0.2(L) 0.2 - 1.3 mg/dL [facility] Bilirubin, Direct <0.1 0.0 - 0.3 mg/dL [facility] Est Glomerular Filtration Rate >60 >=60 [facility] Comment: This estimated GFR (eGFR) [...] the following links into your internet browser. [email or web address] Blood specimen (specimen) 10/03/2016 9:24 AM EDT 10/03/2016 9:27 AM EDT Narrative Resulting Agency Comment Spec In Lab Chris Jacobson MD CHEMISTRY ORDERABLES [facility] [place] [id number] documented in this encounter Visit Diagnoses Diagnosis Thrombocytosis Essential thrombocythemia Elevated TSH Other abnormal blood chemistry documented in this encounter Care Teams Ur Coordinator Relationship Specialty Start Date End Date Roxy Mehta MD [address] [place] [address] PCP - General 02/23/10 documented as of this encounter
--- OUTSIDE RECORDS SUMMARY | 2023-11-06 03:11 | XMS_ITS | Encounter Summary ---
Author Organization [place] [address] Care Team Providers Care Certified Health Education Specialist Name Role Phone Roxy Mehta MD Primary Care Provider [phone] Encounter Details Date Type Department Care Team (Latest Contact Info) Description 09/12/2016 1:37 PM EDT - 09/12/2016 11:59 PM EDT Hospital Encounter [place]ematology [place] [address] Discharge Disposition: Home Social History Tobacco Use [...] End Date fluticasone propionate (Flonase) 50 mcg/actuation [place], Suspension Daily 07/12/2012 cholecalciferol, Vitamin D3, 50 [...] U Albumin/Cre Ratio (09/12/2016 1:50 PM EDT) Albumin / Creatinin Ratio, Urine 6 0 - 29 mcg/mg Cr [facility] Comment: Reference Ranges: <30 mcg/mg: Normal [...] [employer] Supplements (2012) 2, 357? 362 Albumin, Urine 8.2 mg/L [facility] Creatinine, Urine 142 mg/dL [place] [facility] Urine specimen (specimen) Urine / Unknown 09/12/2016 1:50 PM EDT 09/12/2016 2:01 PM EDT Narrative Resulting Agency Comment Spec In Lab Roxy Mehta MD URINE ORDERABLES [facility] [place] [address] * (ABNORMAL) Hemoglobin A1c (09/12/2016 1:47 PM EDT) Hemoglobin A1c 5.9(H) 4.3 - 5.6 % [facility] Comment: Reference Range: 4.3 - 5.6% [...] Diabetes Care 2013; 36: Suppl. 1, S67-74 Estimated Average Glucose See note mg/dL [facility] Comment: Estimated Average Glucose not appropriate [...] into estimated average glucose values. ??Diabetes Care 2008:31(8):1102-6776. Blood specimen (specimen) Venous Draw / Unknown 09/12/2016 1:47 PM EDT 09/12/2016 1:54 PM EDT Narrative Resulting Agency Comment Spec In Lab Roxy Mehta MD CHEMISTRY ORDERABLES Performing Organization Address City/State/[facility] Co de Phone Number [facility] [address] * (ABNORMAL) Lipid Panel (09/12/2016 1:47 PM EDT) Cholesterol, Total 291(H) <=239 mg/dL [facility] Triglyceride 180 <=199 mg/dL [facility] HDL Cholesterol 72 >=40 mg/dL [facility] LDL Cholesterol 183 <=190 mg/dL [facility] Cholesterol/HDL Ratio 4.0 ratio [facility] Lipid Interpretation See Note [facility] Comment: Lipid management should be guided by a patient? s ASCVD risk, goals and preferences. ACC/AHA Guidelines recommend high intensity statin if clinical ASCVD or LDL greater than or equal to 190 mg/dL. [email or web address]-UJJ-[email or web address] Adults aged 40-75 with LDL 70-189 mg/dL should have their 10 year ASCVD risk estimated with the ACC/AHA ASCVD risk commercial estimator http://tools.acc.org/MGIJI-Peiu-Yyidadrrv/ Statin should be discussed if risk greater [...] In Lab Roxy Mehta MD CHEMISTRY ORDERABLES [facility] [place] [address] documented in this encounter Visit Diagnoses Not on filedocumented in this encounter Care Teams Certified Health Education Specialist Relationship Specialty Start Date End Date Roxy Mehta MD [address] [place] [address] PCP - General 02/23/10 documented as of this encounter
--- OUTSIDE RECORDS SUMMARY | 2023-11-06 03:11 | XMS_ITS | Encounter Summary ---
Author Organization [facility] Address [facility] [place] [address] Care Team Providers Care Digester Hand Name Role Phone Roxy Mehta MD Primary Care Provider [phone] Encounter Details Date Type Department Care Team (Late st Contact Info) Description 03/06/2015 Orders Only Hematology [place] [address] Argelia Teresa MD [facility] HEMATOLGY/[place] [address] Social History Tobacco Use Types Packs/Day Years [...] on filedocumented in this encounter Care Teams Digester Hand Relationship Specialty Start Date End Date Roxy Mehta MD [address] [place] [address] PCP - General 02/23/10 documented as of this encounter
--- OUTSIDE RECORDS SUMMARY | 2023-11-06 03:11 | XMS_ITS | Encounter Summary ---
Author Organization [facility] Address [facility] [place] [address] Care Team Providers Care Custom Van Converter Name Role Phone Willem Mehta MD Primary Care Provider [phone] Reason for Visit * Reason Comments Skin Check Encounter Details Date Type Department Care Team (Late st Contact Info) Description 01/07/2016 9:15 AM EDT Office Visit Dermatology at [address] [address] Joyce Truong MD [facility] [place] [address] [place] (actinic keratosis); Nevus; Giordano angioma; Seborrheic [...] Joyce Truong MD Section of Dermatology [facility] cc: No referring provider defined for this encounter. documented in this encounter Plan of Treatment Not on file documented as of this encounter Visit Diagnoses Diagnosis AK (actinic keratosis) Actinic keratosis Nevus Benign neoplasm of skin, site unspecified Giordano angioma Nevus, non-neoplastic Seborrheic keratosis Other seborrheic keratosis documented in this encounter Care Teams Custom Van Converter Relationship Specialty Start Date End Date Willem Mehta MD [address] [facility] [address] [address] PCP - General 02/23/10 documented as of this encounter
--- OUTSIDE RECORDS SUMMARY | 2023-11-06 03:11 | XMS_ITS | Encounter Summary ---
Author Organization [facility] [place] [address] Care Team Providers Care Refrigeration Insulator Name Role Phone Roxy Mehta MD Primary Care Provider [phone] Encounter Details Date Type Department Care Team (Late st Contact Info) Description 08/28/2016 Ancillary Procedure [place] [phone] Roxy Mehta MD [address] [place] [address] Social History Tobacco Use Types [...] CT Chest (08/28/2016 12:00 AM EDT) Narrative [facility] - 05/07/2020 4:43 PM EST This exam is auto-finalizing. It's purpose is for storage only. Roxy Mehta MD [facility]RARY ORD ERABLES [place], [place] documented in this encounter Visit Diagnoses Not on filedocumented in this encounter Care Teams Refrigeration Insulator Relationship Specialty Start Date End Date Roxy Mehta MD [address] [place] [address] PCP - General 02/23/10 documented as of this encounter
--- OUTSIDE RECORDS SUMMARY | 2023-11-06 03:11 | XMS_ITS | Encounter Summary ---
Author Organization [facility] [place] [address] Care Team Providers Care Damper Worker Name Role Phone Roxy Mehta MD Primary Care Provider Reason for Visit * Auth/Cert Specialty Diagnoses / Procedures Referred By Kishore t Referred To Contact Diagnoses FE Anemia Procedures PRG GI TRACT IMAGING, INTRALUMINAL, ESOPHAGUS THROUGH ILEUM, W INTERP & REPORT VIDEO CAPSULE ENDOSCOPY Referral ID Status Reason Start Date Expiration Date Visits Re quested Visits Authorized [id number] 1 1 Encounter Details Date Type Department Care Team (Latest Contact Info) Description 09/24/2015 7:30 AM EDT - 09/24/2015 4:03 PM EDT Hospital Encounter [place] [address] Darlyn Escalante MD [facility] [place] [address] Discharge Disposition: Home Social History Tobacco Use [...] End Date fluticasone propionate (Flonase) 50 mcg/actuation [place], Suspension Daily 07/12/2012 aspirin 81 mg Tablet, [...] Escalante MD - 09/25/2015 8:28 AM EDT [facility] [place] Patient Name: Patricia Liu : [id number] MR#: [id number] Case Date: 09/24/2015 Surgeon: Surgeon(s) and Role: [...] (09/24/2015 7:41 AM EDT) VIDEO CAPSULE ENDOSCOPY [facility] Endoscopy ___ Procedure Date: 09/24/2015 7:41 AM ? Patient Name: Patricia Liu ? Date of : 1940 ? Age: 74 ? Order #: [id number] ? Instrument Name: ? ___ Procedure: ? [...] on filedocumented in this encounter Care Teams Damper Worker Relationship Specialty Start Date End Date Roxy Mehta MD [address] [place] [address] PCP - General 02/23/10 documented as of this encounter
--- OUTSIDE RECORDS SUMMARY | 2023-11-06 03:11 | XMS_ITS | Encounter Summary ---
Author Organization [facility] [place] [place] [address] Care Team Providers Care Production Troubleshooter Name Role Phone Roxy Mehta MD Primary Care Provider [phone] Encounter Details Date Type Department Care Team (Latest Contact Info) Description 02/23/2015 11:17 AM EST - 02/23/2015 11:59 PM EST Hospital Encounter H[place] [address] Thrombocytosis; Leukocytosis Discharge Disposition: Home Social History [...] End Date fluticasone propionate (Flonase) 50 mcg/actuation [place], Suspension Daily 07/12/2012 DULoxetine (CYMBALTA) 30 mg [...] AM EST Thrombocytosis Leukocytosis COMPREHENSIVE METABOLIC PANEL Routine 02/23/2015 11:30 AM EST Thrombocytosis Leukocytosis documented in this encounter Results * JAK2 (02/23/2015 11:30 AM EST) JAK2 (Interp) Specimen Type: peripheral blood Indication for Study: progressive thrombocytosis. Question ET. Analysis: ??Examination of DNA extracted from peripheral blood leukocytes for the V617F somatic mutation in the Janus Kinase 2 (JAK2) gene. DNA is analyzed using primers and probes specific to the wild type and mutant sequence of the gene region of interest (V617F,)followed by SNP detection on an [employer] 7500 Sequence Detection System. Results: ??Negative for [...] from the submitted specimen using the Qiagen EZAnalyte Logic BioRobot. The real time PCR was performed on the BRAY[employer] 7500 system using fluorescently labeled probes for allelic discrimination References: ??Madan et al. Lancet 2005;365:2280-9035; Jose et al. Nature 2005;1-5; Dior et al. Lancet 2005;366:2578-5505; Solis et al. Blood 2005;106:1049-1686. CERNER MILLENNIUM Comment: [VERIFIED DATE]03.03.15 Verified By:Zeyad Hernandez PhD, Molecular Pathologist (Electronic Signature) Blood specimen (specimen) 02/23/2015 11:30 AM EST 02/23/2015 3:20 PM EST Narrative Resulting Agency Comment Spec In Lab Chris Jacobson MD HEMATOLOGY ORDERABLE S FILIPEGLORIA CORADOENNIUM * Differential, Automated (02/23/2015 11:30 AM EST) Neutrophil % 56.5 % CERNER MILLENNIUM Neutrophil Absolute 5.03 1.50 - 6.30 x10(3)/mcL [facility]ERN[facility] MILLENNIUM Lymph % 32.4 % CERNER MILLENNIUM Lymphocytes Abs 2.9 1.0 - 3.6 x10(3)/mcL [facility]ERN[facility] MILLENNIUM Monocyte % 8.0 % CERNER MILLENNIUM Monocyte Abs 0.7 0.2 - 1.0 x10(3)/mcL [facility]ERN[facility] MILLENNIUM Eos % 2.2 % CERNER MILLENNIUM Eosinophils Abs [...] performed. Immature Gran Absolute 0.02 0.00 - 0.05 x10(3)/mcL [facility] MILLENNIUM Blood specimen (specimen) 02/23/2015 11:30 AM EST 02/23/2015 11:40 AM EST Narrative Resulting Agency Comment Spec In Lab Chris Jacobson MD HEMATOLOGY ORDERABLE S CERNER MILLENNIUM * (ABNORMAL) Hemogram (02/23/2015 11:30 AM EST) White Blood Cell 8.9 4.0 - 10.0 x10(3)/mc L CERNER MILLENNIUM Red Blood Cell 4.36 3.93 - 5.22 x10(6)/mc L [facility]ERN[facility] MILLENNIUM Hemoglobin 12.2 11.2 - 15.7 gm/dL [facility]ERNER MILLENNIUM Hematocrit 37.6 34.0 - 45.0 % CERNER MILLENNIUM Mean Cell Volume 86.2 79.0 - 94.0 fL CERNER MILLENNIUM Mean Cell Hemoglobin 28.0 26.6 - 32.2 pg CERNER MILLENNIUM Mean Cell Hemoglobin Concentration 32.4 32.0 - 36.5 gm/dL CERNER MILLENNIUM Platelet 559(H) 145 - 370 x10(3)/mc L CERNER MILLENNIUM RDW Standard Deviation 43.4 35.0 - 46.0 fL CERNER MILLENNIUM RDW coefficient of variation 14.0 10.9 - 14.4 % CERNER MILLENNIUM Mean Platelet Volume 9.0 9.0 - 12.0 fL [facility]ERN[facility] MILLENNIUM Blood specimen (specimen) 02/23/2015 11:30 AM EST 02/23/2015 11:40 AM EST Narrative Resulting Agency Comment Spec In Lab Chris Jacobson MD HEMATOLOGY ORDERABLE S Performing Organization Address [facility] Co de Phone Number [facility] * (ABNORMAL) Ferritin (02/23/2015 11:30 AM EST) Ferritin 11(L) 30 - 400 ng/mL [facility] M[facility] Comment: Pediatric reference ranges not verified at [facility], interpret with caution. Reference ranges for females greater than 50 years of age approach values for men, i.e., 30-400 ng/mL. Blood specimen (specimen) 02/23/2015 11:30 AM EST 02/23/2015 11:40 AM EST Narrative Resulting Agency Comment Spec In Lab Chris Jacobson MD CHEMISTRY ORDERABLES Performing Organization Address [facility] Co de Phone Number [facility] MILLENNIUM * (ABNORMAL) Iron and TIBC (02/23/2015 11:30 AM EST) Iron 46 30 - 150 mcg/dL [facility] TIBC 449 250 - 450 mcg/dL [facility] Iron Saturation 10(L) 20 - 50 % CERN MILLENNIUM Blood specimen (specimen) 02/23/2015 11:30 AM EST 02/23/2015 11:40 AM EST Narrative Resulting Agency Comment Spec In Lab Chris Jacobson MD CHEMISTRY ORDERABLES Performing Organization Address [facility]/ZIP Co de Phone Number [facility] * (ABNORMAL) Comprehensive metabolic panel (non-fasting) (02/23/2015 11:30 AM EST) Glucose 111 65 - 199 mg/dL [facility] Comment:Diabetes: >=200 mg/d L plus symptoms Blood Urea Nitrogen 21(H) 8 - 18 mg/dL [facility] Creatinine 0.80 0.70 - 1.20 mg/dL [facility] MILLENNIUM Comment: Please note that the pediatric reference intervals supplied above were not validated at [facility]. Results from pediatric patients should be [...] 99 98 - 107 mmol/L [facility]ERN[facility] MILLENNIUM Carbon Dioxide 26 22 - 31 mmol/L [facility]ERNER MILLENNIUM Anion Gap 13 5 - 15 mmol/L CERNER MILLENNIUM Calcium 8.9 8.5 - 10.5 mg/dL [facility] MILLENNIUM Protein, Total 7.1 6.1 - 8.0 gm/dL [facility] MILLENNIUM Albumin 4.3 3.2 - 5.2 gm/dL [facility] MILLENNIUM Aspartate Aminotransferase 16 0 - 30 unit/L [facility]ERN[facility] MILLENNIUM Alanine Aminotransferase 14 0 - 30 unit/L CERNER MILLENNIUM Alkaline Phosphatase 104 40 - 104 unit/L CERNER MILLENNIUM Bilirubin, Total <0.2(L) 0.2 - 1.3 mg/dL [facility]ERNER MILLENNIUM Comment:result rechecked-NM Bilirubin, Direct <0.1 0.0 - 0.3 mg/dL [facility] MILLENNIUM Est Glomerular Filtration Rate >60 >=60 [facility]ERNER MILLENNIUM Comment: This estimated [...] the following links into your internet browser. [email or web address]/[email or web address] [email or web address]/[email or web address] Blood specimen (specimen) 02/23/2015 11:30 AM EST 02/23/2015 11:40 AM EST Narrative Resulting Agency Comment Spec In Lab Chris Jacobson MD CHEMISTRY ORDERABLES Performing Organization Address City/State/[facility] Co nd Phone Number [facility] documented in this encounter Visit Diagnoses Diagnosis Thrombocytosis Essential thrombocythemia Leukocytosis Leukocytosis, unspecified documented in this encounter Care Teams Production Troubleshooter Relationship Specialty Start Date End Date Roxy Mehta MD [address] [place] [address] PCP - General 02/23/10 documented as of this encounter
--- OUTSIDE RECORDS SUMMARY | 2023-11-06 03:11 | XMS_ITS | Encounter Summary ---
Author Organization [facility] Address [facility] [place] [address] Care Team Providers Care Plant Care Worker Name Role Phone Roxy Mehta MD Primary Care Provider [phone] Reason for Visit * Auth/Cert Specialty Diagnoses / Procedures Referred By Kishore rodriguez Referred To Contact Diagnoses Thrombocythemia Procedures PRO BONE MARROW ASPIRATION W/BX THROUGH SAME INCISION/SITE PRO BONE MARROW BX, NEEDLE/TROCAR (OSC MSURG) BONE MARROW ASP PERFORMED W/BX THRU BX INCISION (OSC MSURG) BONE MARROW,BIOPSY Referral ID Status Reason Start Date Expiration Date Visits Re quested Visits Authorized [id number] 1 1 Encounter Details Date Type Department Care Team (Late st Contact Info) Description 03/18/2015 11:30 AM EST - 03/18/2015 12:30 PM EST Surgery [place] [id number] Chris Jacobson MD [facility] [address] [place] [address] (OSC MSURG) BONE MARROW ASP PERFORMED W/BX [...] 5pm or on a weekend: Call the [facility] ball machine operator at and ask for the physician supervisor concrete pipe plant covering for your doctor. Instructions following sedation [...] occurs, please contact your M. D. [address] ??? [place] [address] ??? [phone] ??? [email or web address] [employer] ??? [facility] ??? [facility] ??? [facility] documented in this encounter Medications at Time of Discharge Medication Sig Dispensed Refills Start Date End Date fluticasone propionate (Flonase) 50 mcg/actuation [place], Suspension Daily 07/12/2012 aspirin 81 mg Tablet, [...] procedure. Discharge to: Home Pita Garland, MSN, HARDWARE TRAINER Nurse Practitioner Section of Hematology/Oncology [facility] Office phone: documented in this encounter Procedure Notes * Pita Garland APRN - 03/18/2015 12:33 PM ESTProcedure(s): BONE MARROW ASPIRATION W BIOPSY Pre-Procedure Diagnose(s): Thrombocytosis BONE MARROW BIOPSY AND ASPIRATION PROCEDURE NOTE Bone Marrow Biopsy & Aspiration with Conscious Sedation Date/Time of Procedure: 03/18/15 at 12:30pm Proceduralist: PITA GARLAND APRN, RN, MS, GIN FEEDER DIAGNOSIS: Thrombocytosis Pre-Procedure: (x) Consent signed and [...] with Physician as instructed. Pita Garland, MSN, HARDWARE TRAINER Nurse Practitioner Section of Hematology/Oncology [facility] Office phone: documented in [...] report acquired (03/18/2015 3:28 PM EST) Pathologist [facility] Cytogenetics Acquired Report Final Report ? [id number] Specimen Type: Bone Marrow Specimen Condition: ~3ml, [...] (Electronic Signature) Verified By: Ward SALCIDO, Ph.D., [facility] Director, Cytogenetics [facility] 03/18/2015 3:28 PM EST Chris Jacobson MD HEMATOLOGY ORDERABLE S [facility] * Bone Marrow Final Report (03/18/2015 12:31 PM EST) Final Diagnosis [id number] ?Location: The signing pathologist has (i) examined the relevant preparation(s) for the specimen(s) and (ii) rendered or confirmed the diagnosis(es). . ?Molecular Genetics RESULTS DIAGNOSIS 1. Thrombocytosis, by history 2. Normocellular marrow with maturing trilineage hematopoiesis. No morphologic features of involvement by a myeloproliferative neoplasm ??are seen. Cytogenetics and molecular studies pending. Myeloid Sequencing Panel (54-Gene Panel) SPECIMEN: ??[id number] Analysis: ??Examination of DNA extracted from peripheral blood or bone marrow aspirates for somatic mutation analysis. Results: ??This sample failed QC metrics post-sequencing. ?? If testing is warranted as per clinical indication, please contact the attending pathologist in order to resubmit an alternative tissue sample. Reviewed by: Ana Betts, PhD, Genomic Sanitation Inspector ?04/10/15 16:41 Reviewed by: Tre Whitlock, PhD, [facility], Director-[facility] ([facility], 04/13/15 15:34) Verified date: ??04/24/15 ??JERZY Verified by: ?Monica SALCIDO, Josesito ?(Electronic Signature) ? Bone Marrow Final DIAGNOSIS 1. Thrombocytosis, by history 2. Normocellular marrow with maturing trilineage hematopoiesis. No morphologic features of involvement by a myeloproliferative neoplasm ??are seen. Cytogenetics and molecular studies pending. 03/19/15 [facility] 03/20/15 Verified by: ? Josesito Anderson MD [...] with results. PERIPHERAL SMEAR WBC 8.31K/ul; RBC 4.25v364/ul; Hgb 13.0; MCV 84.2; RDW 14.1; PLT [...] for myeloproliferative disorder 04/24/2015 4:46 PM EST [facility] BONE MARROW STRUCTURE / Unknown 03/18/2015 12:31 PM EST 03/18/2015 12:31 PM EST Chris Jacobson MD PATHOLOGY/CYTOLOGY O RDERABLES Performing Organization Address City/[facility]/ZIP Co de Phone Number E[facility] ROM[facility] [place] [address] * Iron Stain, Bone Marrow (03/18/2015 12:31 PM EST) Bone Marrow Iron Stain See Comment [facility] Comment:See Bone Marrow Repo rt [id number] under Hematopathology Reports. Bone marrow specimen (specimen) 03/18/2015 12:31 PM EST 03/18/2015 12:53 PM EST Narrative Resulting Agency Comment Spec In Lab Chris Jacobson MD HEMATOLOGY ORDERABLE S [facility] GIBBSIUM * Differential, Automated (03/18/2015 10:00 AM EST) [...] of variation 14.1 10.9 - 14.4 % [facility] Mean Platelet Volume 9.6 9.0 - 12.0 [...] RN) documented in this encounter Care Teams Plant Care Worker Relationship Specialty Start Date End Date Roxy Mehta MD [address] [place] [address] PCP - General 02/23/10 documented as of this encounter
--- OUTSIDE RECORDS SUMMARY | 2023-11-06 03:11 | XMS_ITS | Encounter Summary ---
Author Organization [facility] Address [facility] [place] [address] Care Team Providers Care Pellet Press Operator Name Role Phone Roxy Mehta MD Primary Care Provider [phone] Encounter Details Date Type Department Care Team (Late st Contact Info) Description 09/14/2016 External Results [facility] [address] Samantha Pardo, TELEVISION OPERATOR [facility] [place] [address] Social History Tobacco Use Types Packs/Day Years [...] * Scan Doc: Chemotherapy (09/14/2016) Samantha Pardo TELEVISION OPERATOR MEDIA MGR SCAN EXT O RDR/RSLT documented in this encounter Visit Diagnoses Not on filedocumented in this encounter Care Teams Pellet Press Operator Relationship Specialty Start Date End Date Roxy Mehta MD [address] [place] [address] PCP - General 02/23/10 documented as of this encounter
--- OUTSIDE RECORDS SUMMARY | 2023-11-06 03:11 | XMS_ITS | Encounter Summary ---
Author Organization [facility] [place] [address] Care Team Providers Care Battery Builder Name Role Phone Roxy Mehta MD Primary Care Provider [phone] Encounter Details Date Type Department Care Team (Late st Contact Info) Description 09/07/2016 Orders Only Hematology [place] [address] Samantha aPrdo, BOILERS AND PRESSURE VESSELS INSPECTOR [facility] [address] [place] [address] Iron deficiency anemia due to chronic blood [...] Stimulating Hormone 4.27(H) 0.27 - 4.20 mlU/ML [facility] Blood specimen (specimen) 09/12/2016 1:47 PM EDT 09/12/2016 1:54 PM EDT Narrative Resulting Agency Comment Spec In Lab Samantha Pardo BOILERS AND PRESSURE VESSELS INSPECTOR CHEMISTRY ORDERABLES Performing Organization Address City/[facility]/ZIP Co de Phone Number [facility] [place] [address] * Lactate Dehydrogenase (09/12/2016 1:47 PM EDT) Lactate Dehydrogenase 163 110 - 220 unit/L [facility] Blood specimen (specimen) 09/12/2016 1:47 PM EDT 09/12/2016 1:54 PM EDT Narrative Resulting Agency Comment Spec In Lab Samantha Pardo BOILERS AND PRESSURE VESSELS INSPECTOR CHEMISTRY ORDERABLES Performing Organization Address [facility] Co de Phone Number [facility] [place] [address] * (ABNORMAL) Reticulocyte Count (09/12/2016 1:47 PM EDT) Reticulocyte % 4.4(H) 0.7 - 2.5 % [facility] Retic Abs # 0.150(H) 0.020 - 0.110 x10(6)/mc L [facility] Immature Retic% 27.6(H) 0.5 - 13.8 % [facility] Reticulated Hgb 22.5(L) 29.8 - 39.4 pg [facility] Blood specimen (specimen) 09/12/2016 1:47 PM EDT 09/12/2016 1:54 PM EDT Narrative Resulting Agency Comment Spec In Lab Samantha Pardo APRN HEMATOLOGY ORDERABLE S Performing Organization Address [facility]/ZIP Co de Phone Number [facility] [place] [address] * (ABNORMAL) Iron and TIBC (09/12/2016 1:47 PM EDT) Iron 20(L) 30 - 150 mcg/dL [facility] TIBC 456(H) 250 - 450 mcg/dL [facility] Iron Saturation 4(L) 20 - 50 % [facility] Blood specimen (specimen) 09/12/2016 1:47 PM EDT 09/12/2016 1:54 PM EDT Narrative Resulting Agency Comment Spec In Lab Samantha Pardo BOILERS AND PRESSURE VESSELS INSPECTOR CHEMISTRY ORDERABLES Performing Organization Address City/[facility]/ZIP Co de Phone Number [facility] [place] [address] * (ABNORMAL) Ferritin (09/12/2016 1:47 PM EDT) Ferritin 25(L) 30 - 400 ng/mL [facility] Comment: Pediatric reference ranges not verified at [facility], interpret with caution. Reference ranges for females greater than 50 years of age approach values for men, i.e., 30-400 ng/mL. Blood specimen (specimen) 09/12/2016 1:47 PM EDT 09/12/2016 1:54 PM EDT Narrative Resulting Agency Comment Spec In Lab Samantha Pardo BOILERS AND PRESSURE VESSELS INSPECTOR CHEMISTRY ORDERABLES Performing Organization Address [facility] Co de Phone Number [facility] [place] [address] * (ABNORMAL) Comprehensive metabolic panel (non-fasting) (09/12/2016 1:47 PM EDT) Glucose 90 65 - 199 mg/dL [facility] Comment:Diabetes: >=200 mg/d L plus symptoms Blood Urea Nitrogen 22(H) 8 - 18 mg/dL [facility] Creatinine 0.89 0.70 - 1.20 mg/dL [facility] Comment: Please note that the pediatric reference intervals supplied above were not validated at [facility]. Results from pediatric patients should be interpreted in conjunction to the patient's age, height and muscle mass. Sodium 139 135 - 145 mmol/L [facility] Potassium 4.2 3.5 - 5.0 mmol/L [facility] Comment: Please note: ??Patients with WBC >100,000 may have falsely elevated Potassium levels. ??For accurate Potassium quantification in these patients send serum separator tube (gold top) for subsequent determinations. ??Contact the Clinical Chemistry Laboratory if there are any questions. Chloride 100 98 - 107 mmol/L [facility] Carbon Dioxide 20(L) 22 - 31 mmol/L [facility] Anion Gap 19(H) 5 - 15 mmol/L [facility] Calcium 9.5 8.5 - 10.5 mg/dL [facility] Protein, Total 7.4 6.1 - 8.0 gm/dL [facility] Albumin 4.4 3.2 - 5.2 gm/dL [facility] Aspartate Aminotransferase 19 0 - 30 unit/L [facility] Alanine Aminotransferase 13 0 - 30 unit/L [facility] Alkaline Phosphatase 131(H) 40 - 104 unit/L [facility] Bilirubin, Total <0.2(L) 0.2 - 1.3 mg/dL [facility] Bilirubin, Direct <0.1 0.0 - 0.3 mg/dL [facility] Est Glomerular Filtration Rate >60 >=60 [facility] Comment: This estimated GFR (eGFR) [...] the following links into your internet browser. [email or web address] Blood specimen (specimen) 09/12/2016 1:47 PM EDT 09/12/2016 1:54 PM EDT Narrative Resulting Agency Comment Spec In Lab Samantha Parod APRN CHEMISTRY ORDERAB[place] [address] documented in this encounter Visit Diagnoses Diagnosis Iron deficiency anemia due to chronic blood loss Iron deficiency anemia secondary to blood loss (chronic) documented in this encounter Care Teams Battery Builder Relationship Specialty Start Date End Date Roxy Mehta MD [address] [place] [address] PCP - General 02/23/10 documented as of this encounter
--- OUTSIDE RECORDS SUMMARY | 2023-11-06 03:11 | XMS_ITS | Encounter Summary ---
Author Organization [facility] [place] [address] Care Team Providers Care Director Of Primary Care Name Role Phone Roxy Mehta MD Primary Care Provider [phone] Encounter Details Date Type Department Care Team (Late st Contact Info) Description 07/26/2016 Ancillary Procedure [place] [phone] Roxy Mehta MD [address] [place] [address] Social History Tobacco Use Types [...] CT Chest (07/26/2016 12:00 AM EDT) Narrative [facility] - 05/07/2020 4:40 PM EST This exam is auto-finalizing. It's purpose is for storage only. Roxy Mehta MD [facility] FILM LIBRARY ORD ERABLES [place], [place] documented in this encounter Visit Diagnoses Not on filedocumented in this encounter Care Teams Director Of Primary Care Relationship Specialty Start Date End Date Roxy Mehta MD [address] [place] [address] PCP - General 02/23/10 documented as of this encounter
--- OUTSIDE RECORDS SUMMARY | 2023-11-06 03:11 | XMS_ITS | Encounter Summary ---
Author Organization [facility] [place] [address] Care Team Providers Care Tractor Expert Name Role Phone Roxy Mehta MD Primary Care Provider [phone] Encounter Details Date Type Department Care Team (Latest Contact Info) Description 09/22/2016 8:14 AM EDT - 09/22/2016 11:59 PM EDT Hospital Encounter Hematology [place] [address] Anemia, unspecified type Discharge Disposition: Home Social [...] End Date fluticasone propionate (Flonase) 50 mcg/actuation [place], Suspension Daily 07/12/2012 cholecalciferol, Vitamin D3, 50 [...] mL/hr documented in this encounter Care Teams Tractor Expert Relationship Specialty Start Date End Date Roxy Mehta MD [address] [place] [address] PCP - General 02/23/10 documented as of this encounter
--- OUTSIDE RECORDS SUMMARY | 2023-11-06 03:11 | XMS_ITS | Encounter Summary ---
Author Organization [facility] [place] [address] Care Team Providers Care Hot Knife Cutter Name Role Phone Roxy Mehta MD Primary Care Provider [phone] Reason for Visit * Reason Comments Advice Only * Consultation (Routine) - Closed Specialty Diagnoses / Procedures Referred By Contoziel t Referred To Contact Hematology and Oncology Diagnoses elevated platelet count Roxy Mehta MD [address] [place] [address] [facility] Hem Onc [address] [place] [address] Referral ID Status Reason Start Date Expiration Date V isits Requested Visits Authorized [id number] Closed Consult, Test & Treat Connection Center 02/05/2015 02/05/2016 1 1 Encounter Details Date Type Department Care Team (Late st Contact Info) Description 02/23/2015 9:45 AM EST Office Visit [place]ematology [place] [address] Chris Jacobson MD [facility] DR HEMATOLOGY [place] [address] Samantha Pardo APRN [facility] DR HEMATOLOGY [place] [address] Argelia Feldman MD [facility] HEMATOLGY/[place] [address] Thrombocytosis Social History Tobacco Use [...] dual-fusion BCR-ABL1 fusion probe associated with t(9;22) ([employer] revealed 0% of the cells with a signal pattern consistent with the BCR-ABL1 fusion gene in 220 cells. This was within the normal limits (<1.0%). Thus, there was no evidence of the BCR-ABL1 fusion. ---Recommendation- -- Correlation with clinical and pathological studies is suggested. ---Disclaimer--- The FISH test was developed and its performance characteristics were determined by the [facility] ([facility]) Cytogenetics Laboratory as required by CLIA? 88 [...] the test? s accuracy and precision. The [facility] Cytogenetics Laboratory is certified under the CLIA? 88 as qualified to perform high complexity clinical laboratory testing. 11.26.15 (Electronic Signature) Verified By: Ward SALCIDO, Ph.D., Liming Director, Cytogenetics [facility] 02/23/2015 12:2 0 PM EST Argelia Feldman MD HEMATOLOGY ORDERABLE S [facility] * Miscellaneous Lab request (02/23/2015 11:30 AM EST) Label Request received in lab. [facility] Blood specimen (specimen) 02/23/2015 11:30 AM EST 02/23/2015 11:42 AM EST Narrative Resulting Agency Comment Spec In Lab Chris Jacobson MD LAB SEND OUT ORDERAB LES Performing Organization Address [facility] de Phone Number [facility] MAKENNIUM * (ABNORMAL) Ferritin (02/23/2015 11:30 AM EST) Ferritin 11(L) 30 - 400 ng/mL [facility] Comment: Pediatric reference ranges not verified at [facility], interpret with caution. Reference ranges for females greater than 50 years of age approach values for men, i.e., 30-400 ng/mL. Blood specimen (specimen) 02/23/2015 11:30 AM EST 02/23/2015 11:40 AM EST Narrative Resulting Agency Comment Spec In Lab Chris Jacobson MD CHEMISTRY ORDERABLES Performing Organization Address [facility] Phone Number [facility] MILLENNIUM * (ABNORMAL) Iron and TIBC (02/23/2015 11:30 AM EST) Iron 46 30 - 150 mcg/dL [facility]ILLENNIUM TIBC 449 250 - 450 mcg/dL [facility]ILL[facility] Iron Saturation 10(L) 20 - 50 % [facility] MILLENNIUM Blood specimen (specimen) 02/23/2015 11:30 AM EST 02/23/2015 11:40 AM EST Narrative Resulting Agency Comment Spec In Lab Chris Jacobson MD CHEMISTRY ORDERABLES Performing Organization Address [facility] de Phone Number [facility] MILLENNIUM * (ABNORMAL) Comprehensive metabolic panel (non-fasting) (02/23/2015 11:30 AM EST) Glucose 111 65 - 199 mg/dL [facility] MILLENNIUM Comment:Diabetes: >=200 mg/d L plus symptoms Blood Urea Nitrogen 21(H) 8 - 18 mg/dL [facility] MILLENNIUM Creatinine 0.80 0.70 - 1.20 mg/dL [facility]ILLENNI[facility] Comment: Please note that the pediatric reference intervals supplied above were not validated at [facility]. Results from pediatric patients should be interpreted [...] the following links into your internet browser. [email or web address] Blood specimen (specimen) 02/23/2015 11:30 AM EST 02/23/2015 11:40 AM EST Narrative Resulting Agency Comment Spec In Lab Chris Jacobson MD CHEMISTRY ORDERABLES Performing Organization Address City/State/[facility] Co de Phone Number [facility] documented in this encounter Visit Diagnoses Diagnosis Thrombocytosis Essential thrombocythemia documented in this encounter Care Teams Hot Knife Cutter Relationship Specialty Start Date End Date Roxy Mehta MD [address] [place] [address] PCP - General 02/23/10 documented as of this encounter
--- OUTSIDE RECORDS SUMMARY | 2023-11-06 03:11 | XMS_ITS | Encounter Summary ---
Author Organization [facility] Address [facility] [place] [address] Care Team Providers Care Spooling Supervisor Name Role Phone Willem Mehta MD Primary Care Provider [phone] Encounter Details Date Type Department Care Team (Late st Contact Info) Description 06/18/2015 Telephone Hematology [place] [address] Argelia Teresa MD [facility] HEMATOLGY/[place] [address] Social History Tobacco Use Types Packs/Day Years [...] WILLEM MEHTA MD that patient had normal [place] and EGD. She had plt elevated to [...] also be useful but this may not fruit picker intermittent bleeding. We will see her in follow up as needed documented in this encounter Plan of Treatment Not on file documented as of this encounter Visit Diagnoses Not on filedocumented in this encounter Care Teams Spooling Supervisor Relationship Specialty Start Date End Date Willem Mehta MD [address] [place] [address] PCP - General 02/23/10 documented as of this encounter
--- OUTSIDE RECORDS SUMMARY | 2023-11-06 03:11 | XMS_ITS | Encounter Summary ---
Author Organization [facility] [place] [address] Care Team Providers Care Casting Operator Name Role Phone Roxy Mehta MD Primary Care Provider [phone] Reason for Visit * Reason Comments Iron Deficiency Encounter Details Date Type Department Care Team (Latest Contact Info) Description 09/29/2016 8:12 AM EDT - 09/29/2016 11:59 PM EDT Hospital Encounter Hematology [place] [address] Iron deficiency anemia, unspecified iron deficiency anemia [...] End Date fluticasone propionate (Flonase) 50 mcg/actuation [place], Suspension Daily 07/12/2012 cholecalciferol, Vitamin D3, 50 [...] mL/hr documented in this encounter Care Teams Casting Operator Relationship Specialty Start Date End Date Roxy Mehta MD [address] [place] [address] PCP - General 02/23/10 documented as of this encounter
--- OUTSIDE RECORDS SUMMARY | 2023-11-06 03:11 | XMS_ITS | Encounter Summary ---
Author Organization [place] [address] Care Team Providers Care Elevator Service Technician Name Role Phone Roxy Mehta MD Primary Care Provider [phone] Reason for Visit * Auth/Cert Specialty Diagnoses / Procedures Referred By Kishore t Referred To Contact Diagnoses FE Anemia Procedures PRG GI TRACT IMAGING, INTRALUMINAL, ESOPHAGUS THROUGH ILEUM, W INTERP & REPORT VIDEO CAPSULE ENDOSCOPY Referral ID Status Reason Start Date Expiration Date Visits Re quested Visits Authorized [id number] 1 1 Encounter Details Date Type Department Care Team (Late st Contact Info) Description 09/24/2015 7:30 AM EDT - 09/24/2015 8:00 AM EDT Surgery [place] [address] Darlyn Escalante MD [facility] [place] [address] VIDEO CAPSULE ENDOSCOPY (WRVU 2.24) Social History [...] End Date fluticasone propionate (Flonase) 50 mcg/actuation [place], Suspension Daily 07/12/2012 aspirin 81 mg Tablet, [...] Escalante MD - 09/25/2015 8:28 AM EDT [facility] Operative Note Patient Name: Patricia Liu : [id number] MR#: [id number] Case Date: 09/24/2015 Surgeon: Surgeon(s) and Role: [...] CAPSULE ENDOSCOPY (09/24/2015 7:41 AM EDT) Pathologist [facility] VIDEO CAPSULE ENDOSCOPY [facility] Endoscopy ___ Procedure Date: 09/24/2015 7:41 AM ? Patient Name: Patricia Liu ? N: [id number] ? Date of : 1940 ? Age: 74 ? Order #: [id number] ? Instrument Name: ? ___ Procedure: ? [...] on filedocumented in this encounter Care Teams Elevator Service Technician Relationship Specialty Start Date End Date Roxy Mehta MD [address] [place] [address] PCP - General 02/23/10 documented as of this encounter
--- OUTSIDE RECORDS SUMMARY | 2023-11-06 03:11 | XMS_ITS | Encounter Summary ---
Author Organization [facility] [place] [address] Care Team Providers Care Die Keeper Name Role Phone Roxy Mehta MD Primary Care Provider [phone] Encounter Details Date Type Department Care Team (Late st Contact Info) Description 03/26/2015 Orders Only Hematology [place] [address] Argelia Teresa MD [facility] HEMATOLGY/[place] [address] Social History Tobacco Use Types Packs/Day Years [...] on filedocumented in this encounter Care Teams Die Keeper Relationship Specialty Start Date End Date Roxy Mehta MD [address] [place], [place] [id number] PCP - General 02/23/10 documented as of this encounter
[2023-11-06] MEDS: Normal Saline Flush 10 ML SYR IVP (11:48)
[2023-11-06] MEDS: SODIUM FER. GLUC./SUC. 125 MG in Normal Saline 100 ML 110 MG IVPB (11:48)
[2023-11-14] MEDS: Normal Saline Flush 10 ML SYR IVP (13:49)
[2023-11-14] MEDS: SODIUM FER. GLUC./SUC. 125 MG in Normal Saline 100 ML 110 MG IVPB (13:49)
[2023-11-21] MEDS: Normal Saline Flush 10 ML SYR IVP (13:48)
[2023-11-21] MEDS: SODIUM FER. GLUC./SUC. 125 MG in Normal Saline 100 ML 110 MG IVPB (13:48)
[2023-11-28] MEDS: SODIUM FER. GLUC./SUC. 125 MG in Normal Saline 100 ML 110 MG IVPB (13:37)
[2023-11-28] MEDS: Normal Saline Flush 10 ML SYR IVP (13:37)
== END 2023-12-02 23:59 | disposition home or self-care (01) ==
LOC: INF 02:32
PROVIDERS: PCP Family Medicine; Visit Provider Family Medicine
DX: D50.9 Iron deficiency anemia, unspecified (principal)
CPT/HCPCS: 96365; J2916

== ENCOUNTER 2023-11-30 04:34 | Outpatient (CLI) | payer MEDICARE, SELFPAY ==
[2023-11-30 13:12] LABS: Ferritin 451 ng/mL (8-252)
== END 2023-11-30 04:35 | disposition home or self-care (01) ==
LOC: LOS 04:35
PROVIDERS: PCP Family Medicine; Visit Provider Family Medicine
DX: D50.9 Iron deficiency anemia, unspecified (principal)
CPT/HCPCS: 36415; 82728

== ENCOUNTER 2024-01-05 02:59 | Outpatient (CLI) | payer MEDICARE, SELFPAY ==
--- OUTSIDE RECORDS SUMMARY | 2024-01-05 03:04 | XMS_ITS | Encounter Summary ---
Author Organization [facility] [address] Care Team Providers Care Storage Battery Inspector And Tester Name Role Phone Roxy Mehta MD Primary Care Provider [phone] Encounter Details Date Type Department Care Team (Latest Contact Info) Description 08/04/2020 1:30 PM EDT - 08/04/2020 11:59 PM EDT Hospital En[place] [address] Pulmonary hypertension Discharge Disposition: Home Social History [...] End Date fluticasone propionate (Flonase) 50 mcg/actuation [place], Suspension Daily 07/12/2012 levothyroxine (Synthroid) 50 mcg [...] / FVC LLN 63 % COMPAS PFT AYL83-55 Actual Pre-BD 2.40 L/s COMPAS PFT ZOZ37-36 Pre-BD % of Predicted 157 % COMPAS PFT VYG30-77 Predicted 1.53 L/s COMPAS PFT BQY12-56 Pre-BD Z-Score 1.14 COMPAS PFT DLCO Hb [...] diseases documented in this encounter Care Teams Storage Battery Inspector And Tester Relationship Specialty Start Date End Date Roxy Mehta MD [address] [place] [address] PCP - General 02/23/10 documented as of this encounter
--- OUTSIDE RECORDS SUMMARY | 2024-01-05 03:04 | XMS_ITS | Encounter Summary ---
[place] [address] Care Team Providers Care Verification Lead Name Role Phone Roxy Mehta MD Primary Care Provider [phone] Reason for Visit * Reason Comments Advice Only * Consultation (Urgent) - Closed Specialty Diagnoses / Procedures Referred By Contoziel t Referred To Contact Hematology and Oncology Diagnoses Multiple subsegmental thrombotic pulmonary emboli without acute cor pulmonale Anemia, unspecified Essential (hemorrhagic) thrombocythemia Roxy Mehta MD [address] [place] [address] [facility] Hem Onc [address] [place] [address] Referral ID Status Reason Start Date Expiration Date V isits Requested Visits Authorized [id number] Closed Consult, Test & Treat Connection Center PCP Updated and/or Approved 05/11/2020 05/11/2021 1 1 Encounter Details Date Type Department Care Team (Latest Contact Info) Description 08/11/2020 11:00 AM EDT Office Visit [place]ology [place] [address] Wendy Espana MD [facility] [place] [address] VTE (venous thromboembolism) (Primary Dx); Iron deficiency [...] were not included. [facility] [place] [address] THROMBOSIS CONSULTATION DATE OF VISIT 08/11/2020 Patient [...] 2015 small capsule study was done at [facility] which revealed no sourceof chronic blood losses. [...] ENDOSCOPY performed by Darlyn Escalante MD at [facility] ENDOSCOPY ??? PRO BONE MARROW ASPIRATION W/BX THROUGH SAME INCISION/SITE Left 03/18/2015 ([facility] MSURG) BONE MARROW ASP PERFORMED W/BX THRU BX INCISION performed by Chris Jacobson MD at [facility] OSC ??? PRO BONE MARROW BX, NEEDLE/TROCAR Left 03/18/2015 ([facility]URG) BONE MARROW,BIOPSY performed by Chris Jacobson MD at [facility] OSC TKA Left MEDICATIONS Current Outpatient Medications on File Prior to Visit Medication Sig Dispense Refill ??? fluticasone propionate (Flonase Allergy Relief) 50 mcg/actuation [place], Suspension Daily ??? levothyroxine (Synthroid) 50 mcg [...] of recurrent pulmonary embolism, who was referred [facility] for evaluation of pulmonary [...] is reasonable. However, the result won't likely warp changer. She is interested to proceed with [...] Results * Ferritin (08/11/2020 12:37 PM EDT) [facility] Ferritin 32 30 - 400 ng/mL [facility] Comment: Pediatric reference ranges not verified at [facility], interpret with caution. Reference ranges for females greater than 50 years of age approach values for men, i.e., 30-400 ng/mL. Blood specimen (specimen) 08/11/2020 12:37 PM EDT 08/11/2020 1:14 PM EDT Narrative Resulting Agency Comment Spec In Lab Wendy Espana MD CHEMISTRY ORDERABLES Performing Organization Address City/[facility]/ZIP Co de Phone Number [facility] [place] [address] * Iron and TIBC (08/11/2020 12:37 PM EDT) Iron 81 30 - 150 mcg/dL [facility] TIBC 383 250 - 450 mcg/dL [facility] Iron Saturation 21 20 - 50 % [facility] Blood specimen (specimen) 08/11/2020 12:37 PM EDT 08/11/2020 1:14 PM EDT Narrative Resulting Agency Comment Spec In Lab Wendy Espana MD CHEMISTRY ORDERABLES Performing Organization Address [facility] Co de Phone Number [facility] [place] [address] documented in this encounter Visit Diagnoses Diagnosis VTE (venous thromboembolism)- Primary Embolism and thrombosis of unspecified site Iron deficiency anemia, unspecified iron deficiency anemia type Reactive thrombocytosis documented in this encounter Care Teams Verification Lead Relationship Specialty Start Date End Date Roxy Mehta MD [address] [place] [address] PCP - General 02/23/10 documented as of this encounter
--- OUTSIDE RECORDS SUMMARY | 2024-01-05 03:04 | XMS_ITS | Clinical Summary ---
Author Organization [facility] Address [facility] [place] [address] Care Team Providers Care Cable Armorer Name Role Phone Roxy Mehta MD Primary Care Provider [phone] Allergies No known active allergies Medications Medication Sig Dispensed Refills Start Date End Date Status apixaban (Eliquis) 5 mg Tablet Take 2.5 mg by mouth 2 times daily. Active ferrous sulfate 325 mg (65 mg iron) Tablet Take 325 mg by mouth daily (with breakfast). Active losartan potassium (LOSARTAN ORAL) Take 50 mg by mouth daily. Active fluticasone propionate (Flonase) 50 mcg/actuation [place], Suspension Daily 07/12/2012 Active levothyroxine (Synthroid) 50 [...] Care Team Description 10/19/2023 Telephone Hematology/Oncology at [address] [address] Enid Romero RN from Last [...] Health Maintenance Due Date Last Done Comments Zoster vaccine (1 of 2) 12/27/1991 Advance Directive 1996 Tetanus/Diphtheria/Pertussis Vaccines (1 - Tdap) 04/08/2003 04/07/2003 Bone Density Scan 2006 Pneumoccocal Vaccine: 65+ (1 of 1 - PCV) 2006 Covid-19 Vaccine (1 - 24 season) 2023 Influenza (Flu) vaccine (1 o f 1 - Influenza standard series) 12/03/2023 01/22/2008, 03/16/2006, 02/08/2005 Care Teams Cable Armorer Relationship Specialty Start Date End Date Roxy Mehta MD [address] [place], [place] [id number] PCP - General 02/23/10
--- OUTSIDE RECORDS SUMMARY | 2024-01-05 03:04 | XMS_ITS | Encounter Summary ---
Author Organization [facility] [place] [address] Care Team Providers Care Review Assistant Name Role Phone Roxy Mehta MD Primary Care Provider [phone] Encounter Details Date Type Department Care Team (Late st Contact Info) Description 08/18/2020 Telephone Hematology [place] [address] Clarissa Zuleta RN Social History Tobacco Use [...] below this line=== ----- Message ----- From: Wedny Espana MD Sent: 08/17/2020 7:49 PM EDT [...] on filedocumented in this encounter Care Teams Review Assistant Relationship Specialty Start Date End Date Roxy Mehta MD [address] [place] [address] PCP - General 02/23/10 documented as of this encounter
--- OUTSIDE RECORDS SUMMARY | 2024-01-05 03:04 | XMS_ITS | Encounter Summary ---
Author Organization [facility] Address [facility] [place] [address] Care Team Providers Care Activity Aide Name Role Phone Roxy Mehta MD Primary Care Provider [phone] Encounter Details Date Type Department Care Team (Late st Contact Info) Description 10/19/2023 Telephone Hematology/Oncology at [address] [address] Enid Romero RN Social History [...] not included. Tried to call Maggie at [facility] back x 5 could not get past VM. Left VM. Dr. Jacobson referred Pt back to PCP management of DELMI on 06/17/[address] Pollock has been watching her Ferratin and last gave IV ferratin at [facility] infusion in April when ferratin level fell to the 30's. It looks like Pt is set up for Ferratin infusions at [facility] infusion Starting 10/29. Labs today: ----- Message from Marcia Moise sent at 10/19/2023 3:34 PM EDT ----- Just spoke with Maggie from [facility]. She was inquiring about Patricia being [...] to play phone tag. Her number is [phone] Thank you Marcia documented in this encounter Plan of Treatment Not on file documented as of this encounter Visit Diagnoses Not on filedocumented in this encounter Care Teams Activity Aide Relationship Specialty Start Date End Date Roxy Mehta MD [address] [place] [address] PCP - General 02/23/10 documented as of this encounter
--- OUTSIDE RECORDS SUMMARY | 2024-01-05 03:04 | XMS_ITS | Encounter Summary ---
Author Organization [facility] [place] [address] Care Team Providers Care Deputy Prosecuting Attorney Name Role Phone Roxy Mehta MD Primary Care Provider [phone] Reason for Visit * Reason Comments Follow-up Encounter Details Date Type Department Care Team (Late st Contact Info) Description 10/03/2016 10:45 AM EDT Office Visit [place]ematology [place] [address] Chris Jacobson MD [facility] [place] [address] Samantha Pardo, [place] [facility] [place] [address] Thrombocytosis; Iron deficiency anemia due to chronic [...] this encounter Progress Notes * Samantha Pardo, LACEWORKER - 10/03/2016 10:45 AM EDT Subjective: Patient [...] it is quite inconveniene tto travel to [place]. She has requested PCP follow up in the immediate future and if needed - perhaps hematology follow up in the future at [facility]. Would recommend Q3 months CBC and iron studies. If requires ongoing IV iron we could help to get her set up in [facility] for this. Regarding her thrombocytosis -this is better after iron infusions, (back to [facility]) however stillelevated. Previous marrow in 2014 [...] (chronic) documented in this encounter Care Teams Deputy Prosecuting Attorney Relationship Specialty Start Date End Date Roxy Mehta MD [address] [place] [address] PCP - General 02/23/10 documented as of this encounter
--- OUTSIDE RECORDS SUMMARY | 2024-01-05 03:04 | XMS_ITS | Encounter Summary ---
Author Organization [facility] Address [facility] [place] [address] Care Team Providers Care Machine Egg Washer Name Role Phone Roxy Mehta MD Primary Care Provider [phone] Reason for Visit * Consultation (Routine) - Closed Specialty Diagnoses / Procedures Referred By Contac t Referred To Contact Dermatology Diagnoses Disorder of the skin and subcutaneous tissue, unspecified SK ON MORAVIAN, GROWING Roxy Mehta MD [address] [place] [address] [facility] Dermatology [address] [place] [address] Referral ID Status Reason Start Date Expiration Date V isits Requested Visits Authorized [id number] Closed Consult, Test & Treat Connection Center PCP Updated and/or Approved 03/04/2021 03/04/2022 6 6 Encounter Details Date Type Department Care Team (Late st Contact Info) Description 05/11/2021 11:30 AM EST Office Visit Dermatology at [facility] [address] [place] [address] [facility] [address] [place] [address] Seborrheic keratosis, inflamed; SK (seborrheic [...] brown stuck on papule on the right latter day -benign nature of lesions discussed -patient reassured. [...] treatment needed. RTC: PRN []Note routed to paper tube machine operator []Recall placed in scheduling system []Appointment scheduled at checkout Scribe attestation: Delon Herzog CMA has performed the documentation for this encounter in the presence of and acting as a scribe for Ramón Grijalva MD. I performed the above scribed service and agree with the accuracy of the documentation in this encounter. Reviewed and signed by: Ramón Grijalva MD Dermatology [facility] documented in this encounter Plan of Treatment Not on file documented as of this encounter Visit Diagnoses Diagnosis Seborrheic keratosis, inflamed Inflamed seborrheic keratosis SK (seborrheic keratosis) Other seborrheic keratosis documented in this encounter Care Teams Machine Egg Washer Relationship Specialty Start Date End Date Roxy Mehta MD [address] [address] PCP - General 02/23/10 documented as of this encounter
--- OUTSIDE RECORDS SUMMARY | 2024-01-05 03:04 | XMS_ITS | Encounter Summary ---
Author Organization [facility] Address [facility] [place] [address] Care Team Providers Care Electrician Helper Powerhouse Name Role Phone Roxy Mehta MD Primary Care Provider [phone] Encounter Details Date Type Department Care Team (Late st Contact Info) Description 12/10/2020 1:00 PM EDT Office Visit Hematology/Oncology at [address] [phone] Chris Jacobson MD [facility] [address] [place] [address] Flor Coleman APRN [address] [place] [address] DR HEMATOLOGY ONCOLOGY [place], [place] [id number] Iron deficiency anemia, unspecified iron deficiency anemia [...] female who I am seeing in the [facility]. She has a history of chronic [...] fluticasone propionate (Flonase Allergy Relief) 50 mcg/actuation [place], Suspension, Daily, Disp: , Rfl: ??? levothyroxine [...] in this encounter Care Teams Electrician Helper Powerhouse Relationship Specialty Start Date End Date Roxy Mehta MD [address] [place] [address] PCP - General 02/23/10 documented as of this encounter
--- OUTSIDE RECORDS SUMMARY | 2024-01-05 03:04 | XMS_ITS | Encounter Summary ---
Author Organization [facility] Address [facility] [place] [address] Care Team Providers Care Die Press Operator Name Role Phone Roxy Mehta MD Primary Care Provider [phone] Encounter Details Date Type Department Care Team (Late st Contact Info) Description 05/15/2020 [place] [address] Jb Gross MD [facility] [place] [address] Pulmonary hypertension (Primary Dx) Social History Tobacco [...] / FVC LLN 63 % COMPAS PFT [id number] Actual Pre-BD 2.40 L/s COMPAS PFT FLP26-35 Pre-BD % of Predicted 157 % COMPAS PFT CUX11-70 Predicted 1.53 L/s COMPAS PFT ODK63-17 Pre-BD Z-Score 1.14 COMPAS PFT DLCO Hb [...] diseases documented in this encounter Care Teams Die Press Operator Relationship Specialty Start Date End Date Roxy Mehta MD [address] [place] [address] PCP - General 02/23/10 documented as of this encounter
--- OUTSIDE RECORDS SUMMARY | 2024-01-05 03:04 | XMS_ITS | Encounter Summary ---
Author Organization [facility] Address [facility] [place] [address] Care Team Providers Care Cardiology Consultants Name Role Phone Roxy Mehta MD Primary Care Provider [phone] Encounter Details Date Type Department Care Team (Late st Contact Info) Description 05/08/2020 [place] [address] Abimale Mascorro MD [facility] [place] [address] REED (dyspnea on exertion); Acute pulmonary embolism [...] type documented in this encounter Care Teams Cardiology Consultants Relationship Specialty Start Date End Date Roxy Mehta MD [address] [place] [address] [address] [place] [address] PCP - General 02/23/10 documented as of this encounter
--- OUTSIDE RECORDS SUMMARY | 2024-01-05 03:04 | XMS_ITS | Encounter Summary ---
Author Organization [facility] Address [facility] [place] [address] Care Team Providers Care Air Value Tester Name Role Phone Roxy Mehta MD Primary Care Provider Encounter Details Date Type Department Care Team (Late st Contact Info) Description 07/13/2020 Telephone Dermatology at [facility] [address] [place] [address] Joyce Truong MD [facility] DR [address] [address] Social History Tobacco Use Types Packs/Day Years [...] on filedocumented in this encounter Care Teams Air Value Tester Relationship Specialty Start Date End Date Roxy Mehta MD [address] [place] [address] PCP - General 02/23/10 documented as of this encounter
--- OUTSIDE RECORDS SUMMARY | 2024-01-05 03:04 | XMS_ITS | Encounter Summary ---
[place] [address] Care Team Providers Care Microbiological Lab Technician Name Role Phone Roxy Mehta MD Primary Care Provider [phone] Encounter Details Date Type Department Care Team (Late st Contact Info) Description 05/11/2020 [place] [phone] Lacey Cole Social History Tobacco Use Types [...] on filedocumented in this encounter Care Teams Microbiological Lab Technician Relationship Specialty Start Date End Date Roxy Mehta MD [address] [place], [place] [id number] PCP - General 02/23/10 documented as of this encounter
--- OUTSIDE RECORDS SUMMARY | 2024-01-05 03:04 | XMS_ITS | Encounter Summary ---
Author Organization [facility] [place] [address] Care Team Providers Care Liver Trimmer Name Role Phone Roxy Mehta MD Primary Care Provider Reason for Referral * Consultation (Priority 3) - Closed Specialty Diagnoses / Procedures Referred By Contac t Referred To Contact Dermatology Diagnoses Disorder of the skin and subcutaneous tissue, unspecified Roxy Mehta MD [address] [place] [address] [facility] Dermatology [address] [place] [address] Referral ID Status Reason Start Date Expiration Date V isits Requested Visits Authorized [id number] Closed Consult, Test & Treat PCP Updated and/or Approved 10/06/2022 10/06/2023 6 6 Encounter Details Date Type Department Care Team (Late st Contact Info) Description 10/06/2022 Transcribe Orders eDH Incoming Referrals [phone] Roxy Mehta MD [address] [place] [address] Disorder of the skin and [...] unspecified documented in this encounter Care Teams Liver Trimmer Relationship Specialty Start Date End Date Roxy Mehta MD [address] [place] [address] PCP - General 02/23/10 documented as of this encounter
--- OUTSIDE RECORDS SUMMARY | 2024-01-05 03:04 | XMS_ITS | Encounter Summary ---
Author Organization [facility] [place] [address] Care Team Providers Care Superintendent Sales Name Role Phone Roxy Mehta MD Primary Care Provider [phone] Encounter Details Date Type Department Care Team (Latest Contact Info) Description 09/02/2020 11:00 AM EDT TH Visit (TeleHealth) Hematology [place] [address] Wendy Espana MD [facility] DR HEMATOLOGY [place] [address] Recurrent pulmonary embolism; Iron deficiency anemia, unspecified [...] were not included. [facility] [place], [place] [address] THROMBOSIS CONSULTATION DATE OF VISIT 09/02/2020 Patient [...] epigastric discomfort since Thanksgiving last year. Around [place] she hasstarted to not feeling well, fatigue [...] 2015 small capsule study was done at [facility] which revealed no sourceof chronic blood losses. [...] ENDOSCOPY performed by Darlyn Escalante MD at [facility] ENDOSCOPY ??? PRO BONE MARROW ASPIRATION W/BX THROUGH SAME INCISION/SITE Left 03/18/2015 ([facility]) BONE MARROW ASP PERFORMED W/BX THRU BX INCISION performed by Chris Jacobson MD at [facility] OSC ??? PRO BONE MARROW BX, NEEDLE/TROCAR Left 03/18/2015 ([facility]) BONE MARROW,BIOPSY performed by Chris Jacobson MD at [facility] OSC TKA Left MEDICATIONS Current Outpatient Medications on File Prior to Visit Medication Sig Dispense Refill ??? fluticasone propionate (Flonase Allergy Relief) 50 mcg/actuation [place], Suspension Daily ??? levothyroxine (Synthroid) 50 mcg [...] MD Verified: ??09/02/2020 11:32 ??Hematopathologist Performed at: ??-[facility] Dept. of Pathology, [place], [place] ADDITIONAL STUDIES TEST ?(REFERENCE RANGE) ?RESULT [...] antibodies ?(IgM </= 12.5 MPL) ?<9.4 MPL Ydep-8-dfprcmygtoks-1 antibodies ??(IgG </= 20 units) ?<9.4 units Tfvs-4-gumjjrenyfnd-1 antibodies ??(IgM </= 20 units) ?<9.4 units Homocysteine, random, plasma ?(</=15 umol/L) ?11 umol/L Factor V Leiden Mutation ?(normal) ? Not performed Prothrombin (10333 G->A) mutation (normal) ?Not performed### * Functional [...] in the setting of moderate hiatal hernia. [place] rectal malignancy should also be ruled out [...] MD Addendum I personally talked to Dr. Mehat. She will talk to Patricia about GI [...] Pardo APRN can see her up at [facility] for the lab testing. Otherwise Patricia has to come to [facility] for her testing. Wendy Espana MD documented in this encounter Plan of Treatment Not on file documented as of this encounter Visit Diagnoses Diagnosis Recurrent pulmonary embolism Other pulmonary embolism and infarction Iron deficiency anemia, unspecified iron deficiency anemia type Reactive thrombocytosis documented in this encounter Care Teams Superintendent Sales Relationship Specialty Start Date End Date Roxy Mehta MD [address] [facility] [address] [place] [address] PCP - General 02/23/10 documented as of this encounter
--- OUTSIDE RECORDS SUMMARY | 2024-01-05 03:04 | XMS_ITS | Encounter Summary ---
Author Organization [facility] [place] [address] Care Team Providers Care Torpedoman'S Mate Name Role Phone Roxy Mehta MD Primary Care Provider [phone] Encounter Details Date Type Department Care Team (Latest Contact Info) Description 08/11/2020 12:18 PM EDT - 08/11/2020 11:59 PM EDT Hospital Encounter Hematology [place] [address] VTE (venous thromboembolism); Iron deficiency anemia, unspecified [...] End Date fluticasone propionate (Flonase) 50 mcg/actuation [place], Suspension Daily 07/12/2012 levothyroxine (Synthroid) 50 mcg [...] Act 129 64 - 149 % activity [facility] Blood specimen (specimen) Venous Draw / Unknown 08/11/2020 12:37 PM EDT 08/11/2020 1:14 PM EDT Narrative Resulting Agency Comment Spec In Lab Wendy Espana MD HEMATOLOGY ORDERABLE S [facility] [place] [place] [address] * (ABNORMAL) Protein C activity (08/11/2020 12:37 PM EDT) Protein C Activity >150(H) 70 - 140 % [facility] Blood specimen (specimen) Venous Draw / Unknown 08/11/2020 12:37 PM EDT 08/11/2020 1:14 PM EDT Narrative Resulting Agency Comment Spec In Lab Wendy Espana MD HEMATOLOGY ORDERABLE S [facility] [place] [address] * (ABNORMAL) Antithrombin (08/11/2020 12:37 PM EDT) Antithrombin III Assay >150(H) 83 - 128 % [facility] Blood specimen (specimen) Venous Draw / Unknown 08/11/2020 12:37 PM EDT 08/11/2020 1:14 PM EDT Narrative Resulting Agency Comment Spec In Lab Wendy Espana MD HEMATOLOGY ORDERABLE S [facility] [place] [address] * APC resistance (08/11/2020 12:37 PM EDT) [facility] Activated Protein C Resistance 3.10 >=2.54 [facility] Blood Venous Draw / Unknown 08/11/2020 12:37 PM EDT 08/11/2020 1:14 PM EDT Narrative Resulting Agency Comment Spec In Lab Wendy Espana MD HEMATOLOGY ORDERABLE S Performing Organization Address City/[facility] Co de Phone Number [facility] [place] [address] * Differential, Automated (08/11/2020 12:37 PM EDT) [facility] Neutrophil % 58.2 % [facility] Neutrophil Absolute 5.54 1.70 - 6.10 x10(3)/[facility] Lymph % 31.0 % [facility] Lymphocytes Abs 3.0 0.9 - 3.2 x10(3)/[facility] Monocyte % 8.9 % [facility] Monocyte Abs 0.8 0.3 - 0.9 x10(3)/[facility] Eos % 0.9 % [facility] Eosinophils Abs 0.1 0.0 - 0.4 x10(3)/[facility] Basophil % 0.8 % [facility] Baso Absolute 0.1 0.0 - 0.1 x10(3)/[facility] Immature Gran % 0.20 % [facility] Comment: Immature granulocytes(IG's)percentage and absolute count will include metamyelocytes, myelocytes, and promyelocytes. Blood smears from CBCs yielding IG's will be scanned manually for concordance. If this scan disagrees with the automated IG or if promyelocytes are noted, a manual differential will be performed. Immature Gran Absolute 0.02 0.00 - 0.04 x10(3)/mcL [facility] Blood specimen (specimen) 08/11/2020 12:37 PM EDT 08/11/2020 1:14 PM EDT Narrative Resulting Agency Comment Spec In Lab Wendy Espana MD HEMATOLOGY ORDERABLE S [facility] [place] [address] * (ABNORMAL) Hemogram (08/11/2020 12:37 PM EDT) White Blood Cell 9.5 4.0 - 9.5 x10(3)/mc L [facility] Red Blood Cell 5.13 4.00 - 5.21 x10(6)/mc L [facility] Hemoglobin 13.9 11.7 - 15.5 gm/dL [facility] Hematocrit 44.2 35.7 - 45.8 % [facility] Mean Cell Volume 86.2 82.6 - 94.4 fL [facility] Mean Cell Hemoglobin 27.1 27.1 - 32.0 pg [facility] Mean Cell Hemoglobin Concentration 31.4(L) 31.7 - 35.0 gm/dL [facility] Platelet 492(H) 145 - 357 x10(3)/mc L [facility] RDW Standard Deviation 59.7(H) 37.0 - 46.0 fL [facility] RDW coefficient of variation 18.6(H) 11.5 - 14.1 % [facility] Mean Platelet Volume 9.3 7.6 - 12.9 fL [facility] NRBC% auto 0.0 % [facility] NRBC Absolute 0.000 0.000 - 0.000 x10(3)/mc L [facility] Blood specimen (specimen) 08/11/2020 12:37 PM EDT 08/11/2020 1:14 PM EDT Narrative Resulting Agency Comment Spec In Lab Wendy Espana MD HEMATOLOGY ORDERABLE S [facility] [address] * Beta-2 glycoprotein antibodies (08/11/2020 12:37 PM EDT) Beta 2 Glycoprotein, IgG <9.4 <=20.0 unit(s) [facility] Beta 2 Glycoprotein, IgM <9.4 <=20.0 unit(s) [facility] B2GPI Interp See Thrombosis Screen Report [id number] Hematopatholo gy Reports. [facility] Blood specimen (specimen) 08/11/2020 12:37 PM EDT 08/12/2020 7:29 AM EDT Narrative Resulting Agency Comment Spec In Lab Wendy Espana MD IMMUNOLOGY ORDERABLE S Performing Organization Address City/[facility]/ZIP Co de Phone Number [facility] [address] * Homocysteine Total, Plasma (08/11/2020 12:37 PM EDT) Homocystine 11 <=15 mcmol/L [facility] Blood specimen (specimen) 08/11/2020 12:37 PM EDT 08/11/2020 1:14 PM EDT Narrative Resulting Agency Comment Spec In Lab Wendy Espana MD CHEMISTRY ORDERABLES Performing Organization Address City/[facility]/ZIP Co de Phone Number [facility] [place] [address] * Cardiolipin Antibody Screen (08/11/2020 12:37 PM EDT) Pathologist [facility] Cardiolipin Antibody IgG <9.4 <=14.9 GPL unit(s) [facility] Comment: Ranges ?? GPL ------ ?? --- Negative ?? <=14.9 Indeterminate ??15.0 - 20.0 Low/Medium Positive 20.1 - 80.0 High Positive ??>80.0 Cardiolipin Antibody IgM <9.4 <=12.5 MPL unit(s) [facility] Comment: Ranges ?? MPL ------ ?? --- Negative ?? <=12.5 Indeterminate ??12.6 - 20.0 Low/Medium Positive 20.1 - 80.0 High Positive ??>80.0 Blood specimen (specimen) 08/11/2020 12:37 PM EDT 08/12/2020 7:29 AM EDT Narrative Resulting Agency Comment Spec In Lab Wendy Espana MD IMMUNOLOGY ORDERABLE S Performing Organization Address City/[facility]/ZIP Co de Phone Number [facility] [address] * THS Report (08/11/2020 12:37 PM EDT) [facility] THS Report See Comment [facility] Comment:See Thrombosis Scree n Report [id number] under Hematopathology Reports. Blood 08/11/2020 12:3 7 PM EDT 08/11/2020 1:14 PM EDT Narrative Resulting Agency Comment Spec In Lab Wendy Espana MD HEMATOLOGY ORDERABLE S Performing Organization Address City/[facility]/ZIP Co de Phone Number [facility] [place] [address] * dRVVT (08/11/2020 12:37 PM EDT) [facility] dRVVT 0.86 <=1.20 IU/mL [facility] Comment: A result greater than [...] MD HEMATOLOGY ORDERABLE S Performing Organization Address [facility] Co de Phone Number [facility] [place] [address] * Silica Clotting Time (08/11/2020 12:37 PM EDT) Silica Clotting Time 1.13 <=1.16 ratio [facility] Comment: A result greater than [...] MD HEMATOLOGY ORDERABLE S Performing Organization Address [facility] Co de Phone Number [facility] [address] * TT (08/11/2020 12:37 PM EDT) Thrombin Time 14 10 - 17 sec [facility] Comment: A prolongation in the [...] MD HEMATOLOGY ORDERABLE S Performing Organization Address [facility]/ZIP Co de Phone Number [facility] [place] [address] * (ABNORMAL) FIBR (08/11/2020 12:37 PM EDT) Fibrinogen 465(H) 200 - 393 mg/dL [facility] Comment: A fibrinogen level >100 mg/dL is adequate for hemostasis in most patients without underlying bleeding disorders. Blood specimen (specimen) 08/11/2020 12:37 PM EDT 08/11/2020 1:14 PM EDT Narrative Resulting Agency Comment Spec In Lab Wendy Espana MD HEMATOLOGY ORDERABLE S Performing Organization Address [facility] Co de Phone Number [facility] [place] [address] * PTT (08/11/2020 12:37 PM EDT) Partial Thromboplastin Time 34 25 - 37 sec [facility] Comment: The PTT is NOT appropriate for heparin monitoring. Use the Anti-Xa level for heparin monitoring (HEP UFH) or LMWH monitoring (HEP LMW). A PTT less than 37 seconds generally indicates adequate hemostasis. Blood specimen (specimen) 08/11/2020 12:37 PM EDT 08/11/2020 1:14 PM EDT Narrative Resulting Agency Comment Spec In Lab Wendy Espana MD HEMATOLOGY ORDERABLE S Performing Organization Address [facility] Co de Phone Number [facility] [place] [address] * (ABNORMAL) PT (08/11/2020 12:37 PM EDT) [facility] Prothrombin Time 13.0(H) 9.4 - 12.5 sec [facility] International Normalization Ratio 1.1 [facility] Comment: An INR <2.0 indicates [...] City/[facility]/ZIP Co de Phone Number [facility] [place] [address] * Iron and TIBC (08/11/2020 12:37 PM EDT) [facility] Iron 81 30 - 150 mcg/dL [facility] TIBC 383 250 - 450 mcg/dL [facility] Iron Saturation 21 20 - 50 % [facility] Blood specimen (specimen) 08/11/2020 12:37 PM EDT 08/11/2020 1:14 PM EDT Narrative Resulting Agency Comment Spec In Lab Wendy Espana MD CHEMISTRY ORDERABLES [facility] [address] * Ferritin (08/11/2020 12:37 PM EDT) [facility] Ferritin 32 30 - 400 ng/mL [facility] Comment: Pediatric reference ranges not verified at [facility], interpret with caution. Reference ranges for females greater than 50 years of age approach values for men, i.e., 30-400 ng/mL. Blood specimen (specimen) 08/11/2020 12:37 PM EDT 08/11/2020 1:14 PM EDT Narrative Resulting Agency Comment Spec In Lab Wendy Espana MD CHEMISTRY ORDERABLES [facility] [place] [address] * Thrombosis Screen Report (08/11/2020 12:20 PM EDT) Thrombosis Screen Report [id number] ? Location: 3K The signing pathologist has [...] MD Verified: ??09/02/2020 11:32 ??Hematopathologist Performed at: ??-[facility] Dept. of Pathology, [place], [place] ADDITIONAL STUDIES TEST ?(REFERENCE RANGE) ?RESULT [...] antibodies ?(IgM </= 12.5 MPL) ?<9.4 MPL Onlc-6-diyjqpihvooa-1 antibodies ??(IgG </= 20 units) ?<9.4 units Dokn-6-zjhmftecqqgh-1 antibodies ??(IgM </= 20 units) ?<9.4 units Homocysteine, random, plasma ?(</=15 umol/L) ?11 umol/L Factor V Leiden Mutation ?(normal) ?Not performed Prothrombin (73222 G->A) mutation (normal) ?Not performed * Functional [...] with apixaban. No family history of VTE. [facility] 08/11/2020 12:2 0 PM EDT Wendy Espana MD PATHOLOGY/CYTOLOGY O RDERABLES [facility] [place] [address] documented in this encounter Visit Diagnoses Diagnosis VTE (venous thromboembolism) Embolism and thrombosis of unspecified site Iron deficiency anemia, unspecified iron deficiency anemia type documented in this encounter Care Teams Torpedoman'S Mate Relationship Specialty Start Date End Date Roxy Mehta MD [address] [place] [address] PCP - General 02/23/10 documented as of this encounter
--- OUTSIDE RECORDS SUMMARY | 2024-01-05 03:04 | XMS_ITS | Encounter Summary ---
Author Organization [facility] Address [facility] [place] [address] Care Team Providers Care Outside Sales Name Role Phone Roxy Mehta MD Primary Care Provider [phone] Encounter Details Date Type Department Care Team (Late st Contact Info) Description 04/28/2020 Ancillary Procedure Radiology Library at [facility] [place] [address] Roxy Mehta MD [address] [place] [address] Social History Tobacco Use Types [...] Abdomen Pelvis (04/28/2020 12:00 AM EST) Narrative [facility] - 05/07/2020 4:49 PM EST This exam is auto-finalizing. It's purpose is for storage only. Roxy Mehta MD [facility] FILM LIBRARY ORD ERABLES [place], [place] documented in this encounter Visit Diagnoses Not on filedocumented in this encounter Care Teams Outside Sales Relationship Specialty Start Date End Date Roxy Mehta MD [address] [place] [address] PCP - General 02/23/10 documented as of this encounter
--- OUTSIDE RECORDS SUMMARY | 2024-01-05 03:04 | XMS_ITS | Encounter Summary ---
Author Organization [facility] Address [facility] [place] [address] Care Team Providers Care Marketing Automation Analyst Name Role Phone Roxy Mehta MD Primary Care Provider [phone] Encounter Details Date Type Department Care Team (Late st Contact Info) Description 04/28/2020 12:05 AM EST Ancillary Procedure Radiology Library at [facility] [place] [address] Roxy Mehta MD [address] [place], [place] [id number] Social History Tobacco Use Types Packs/Day Years [...] CT Chest (04/28/2020 12:05 AM EST) Narrative [facility] - 05/07/2020 4:50 PM EST This exam is auto-finalizing. It's purpose is for storage only. Roxy Mehta MD [facility] FILM LIBRARY ORD ERABLES Performing Organization Address City/State/[facility] Co de Phone Number [place], [place] documented in this encounter Visit Diagnoses Not on filedocumented in this encounter Care Teams Marketing Automation Analyst Relationship Specialty Start Date End Date Roxy Mehta MD [address] [place] [address] PCP - General 02/23/10 documented as of this encounter
--- OUTSIDE RECORDS SUMMARY | 2024-01-05 03:04 | XMS_ITS | Encounter Summary ---
Author Organization [facility] Address [facility] [place] [address] Care Team Providers Care House Mother Name Role Phone Roxy Mehta MD Primary Care Provider [phone] Reason for Visit * Consultation (Urgent) - Closed Specialty Diagnoses / Procedures Referred By Contac t Referred To Contact Pulmonology Diagnoses Pulmonary hypertension, unspecified Multiple subsegmental thrombotic pulmonary emboli without acute cor pulmonale Roxy Mehta MD [address] [place] [address] [facility] [address] [place] [phone] Referral ID Status Reason Start Date Expiration Date V isits Requested Visits Authorized [id number] Closed Consult, Test & Treat Connection Center PCP Updated and/or Approved 05/07/2020 05/07/2021 6 6 Encounter Details Date Type Department Care Team (Late st Contact Info) Description 08/04/2020 2:00 PM EDT Office [place] [address] Camryn Valdez MD [facility] [place] [address] Carlton Choi MD [facility] [place] [address] REED (dyspnea on exertion) Social [...] from the original note were not included. [facility] Section of Pulmonary and Critical Care Medicine Outpatient Consultation Date of Encounter: 08/03/2020 Referring Provider: Roxy Mehta MD [address] [place] [address] PCP: Roxy Mehta MD Reason for Evaluation: [...] future problems arise. Carlton Choi MD [facility] PULMONOLOGY AT [facility] [address] Dept: [phone] Loc: [phone] * Camryn Valdez MD - 08/04/2020 2:00 [...] abnormality documented in this encounter Care Teams House Mother Relationship Specialty Start Date End Date Roxy Mehta MD [address] [place] [address] PCP - General 02/23/10 documented as of this encounter
--- OUTSIDE RECORDS SUMMARY | 2024-01-05 03:04 | XMS_ITS | Encounter Summary ---
Author Organization [facility] Address [facility] [place] [address] Care Team Providers Care Supervisor Prep Name Role Phone Roxy Mehta MD Primary Care Provider [phone] Reason for Visit * Reason Comments Skin Check Skin Lesion spots on chest now s preading to face Encounter Details Date Type Department Care Team (Late st Contact Info) Description 01/05/2017 11:15 AM EDT Office Visit Dermatology at [facility] [address] [place] [address] Joyce Truong MD [facility] [address] SY[place] [address] Giordano angioma; Seborrheic keratosis; Solar lentigo Social [...] the presence of Dr. Truong. DENISE HYDE ICE CREAM SHOP ASSOCIATEJose Maria Burgos is documenting this encounter acting as the scribe for and in the presence of Joyce Truong MD. I performed the above scribed service and agree with the accuracy of the documentation in this encounter. Joyce Truong MD Section of Dermatology [facility] documented in this encounter Plan of Treatment Not on file documented as of this encounter Visit Diagnoses Diagnosis Giordano angioma Nevus, non-neoplastic Seborrheic keratosis Other seborrheic keratosis Solar lentigo Other dyschromia documented in this encounter Care Teams Supervisor Prep Relationship Specialty Start Date End Date Roxy Mehta MD [address] [email or web address] [address] [place] [address] PCP - General 02/23/10 documented as of this encounter
--- OUTSIDE RECORDS SUMMARY | 2024-01-05 03:04 | XMS_ITS | Encounter Summary ---
Author Organization [facility] Address [facility] [place] [address] Care Team Providers Care Knit Goods Cutter Hand Name Role Phone Roxy Mehta MD Primary Care Provider Encounter Details Date Type Department Care Team (Late st Contact Info) Description 03/08/2019 Ancillary Procedure Radiology Library at [facility] [place] [address] Roxy Mehta MD [address] [place] [address] Social History Tobacco Use Types [...] Abdomen Pelvis (03/08/2019 12:00 AM EST) Narrative [facility] - 05/07/2020 4:47 PM EST This exam is auto-finalizing. It's purpose is for storage only. Roxy Mehta MD IM FILM LIBRARY ORD ERABLES Performing Organization Address City/State/[facility] Co de Phone Number [place], [place] documented in this encounter Visit Diagnoses Not on filedocumented in this encounter Care Teams Knit Goods Cutter Hand Relationship Specialty Start Date End Date Roxy Mehta MD [address] [place] [address] PCP - General 02/23/10 documented as of this encounter
--- OUTSIDE RECORDS SUMMARY | 2024-01-05 03:04 | XMS_ITS | Encounter Summary ---
Author Organization [facility] Address [facility] [place] [address] Care Team Providers Care Auto Tech Name Role Phone Roxy Mehta MD Primary Care Provider [phone] Reason for Visit * Reason Comments Skin Check Encounter Details Date Type Department Care Team (Late st Contact Info) Description 01/03/2019 2:15 PM EDT Office Visit Dermatology at [address] [address] [address] Beck [address] [facility] [address] SKs (seborrheic keratoses); Seborrheic keratosis, inflamed; Solar [...] with surrounding erythema located on the right [facility] x1 C. Sun exposed areas: 0.3-0.6cm light-brown [...] MD. Joyce Beck MD Section of Dermatology [facility] documented in this encounter Plan of Treatment Not on file documented as of this encounter Visit Diagnoses Diagnosis SKs (seborrheic keratoses) Other seborrheic keratosis Seborrheic keratosis, inflamed Inflamed seborrheic keratosis Solar lentigo Other dyschromia Giordano angioma Nevus, non-neoplastic Skin tag Unspecified hypertrophic and atrophic condition of skin documented in this encounter Care Teams Auto Tech Relationship Specialty Start Date End Date Roxy Mehta MD [address] [place] [address] PCP - General 02/23/10 documented as of this encounter
--- OUTSIDE RECORDS SUMMARY | 2024-01-05 03:04 | XMS_ITS | Encounter Summary ---
Author Organization [facility] Address [facility] [place] [address] Care Team Providers Care Tenderizer Tender Name Role Phone Roxy Mehta MD Primary Care Provider [phone] Reason for Visit * Reason Comments Skin Check rough areas on hairl ine Encounter Details Date Type Department Care Team (Late st Contact Info) Description 12/12/2017 9:30 AM EDT Office Visit Dermatology at [facility] [address] [place] [address] Moody Beck MD [facility] [address] SY[place] [address] Ainsley Perez PA [facility] DR [place] [address] Lentigines; SKs (seborrheic keratoses) Social History Tobacco [...] call if areas become inflamed or irritated. [facility] [address] RTC: 1 year for FSE. Routed for scheduling. Note initiated by NIKKI TAMEZ. I, Setphanie Renteria, have performed the documentation for this encounter in the presence of and acting as a scribe for Ainsley Fowler) MIRIAN Perez. I performed the services which were documented by the scribe, and I agree with the accuracy of the documentation in this encounter. Aisnley Perez PA-C Reviewed and signed by Ainsley Perez PA-C [facility] Patient seen in conjunction with staff machine bookkeeper: Moody Beck MD Section of Dermatology [facility] * Moody Beck MD - 12/12/2017 9:30 AM EDT Patient seen and examined. Scattered regular brown macules c/w solar lentigines- discussed suncare,reassured about benign nature. Scattered stuck on papules and plaques c/w SK's- reassured about benign nature. Patient seen in conjunction with Ainsley Perez PA-C (Bri) Signed by: MOODY BECK MD Section of Dermatology [facility] documented in this encounter Plan of Treatment Not on file documented as of this encounter Visit Diagnoses Diagnosis Lentigines Other dyschromia SKs (seborrheic keratoses) Other seborrheic keratosis documented in this encounter Care Teams Tenderizer Tender Relationship Specialty Start Date End Date Roxy Mehta MD [address] [place] [address] PCP - General 02/23/10 documented as of this encounter
--- OUTSIDE RECORDS SUMMARY | 2024-01-05 03:04 | XMS_ITS | Encounter Summary ---
Author Organization [facility] Address [facility] [place] [address] Care Team Providers Care Middle School Reading Teacher Name Role Phone Roxy Mehta MD Primary Care Provider [phone] Encounter Details Date Type Department Care Team (Late st Contact Info) Description 03/11/2021 1:30 PM EST Office Visit Hematology/Oncology at [address] [id number] Chris Jacobson MD [facility] DR HEMATOLOGY [place] [address] Flor Coleman APRN [address] [place] [address] DR HEMATOLOGY ONCOLOGY [place], [place] [id number] Iron deficiency anemia, unspecified iron deficiency anemia [...] this encounter Progress Notes * Flor Coleman, FREELANCE MAKEUP ARTIST - 03/11/2021 1:30 PM EST Subjective: Patient ID: Patricia Liu is a 80 y.o. female. Patient Active Problem List Diagnosis Code ??? Thrombocytosis D75.839 ??? Iron deficiency anemia D50.9 ??? 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 She has a history of [...] been scheduled by her PCP. Vania returns [facility] today for routine follow-up. Today she says she is doing well. She has been feeling a little more fatigued in recent weeks, and thinks she needs some iron. She also loses her appetite when her iron is low. She has been taking itorally QOD. She says her PCP has already scheduled her at [facility] next week for Iron. In the [...] fluticasone propionate (Flonase Allergy Relief) 50 mcg/actuation [place], Suspension ??? levothyroxine (Synthroid) 50 mcg Tablet [...] Exam Vitals reviewed. Exam conducted with a system safety engineer present. Constitutional: General: She is not in [...] scheduled by [facility]. Persistent reactive [...] thrombocytosis documented in this encounter Care Teams Middle School Reading Teacher Relationship Specialty Start Date End Date Roxy Mehta MD [address] [place] [address] PCP - General 02/23/10 documented as of this encounter
--- OUTSIDE RECORDS SUMMARY | 2024-01-05 03:04 | XMS_ITS | Encounter Summary ---
Author Organization [facility] Address [facility] [place] [address] Care Team Providers Care Professional Development Manager Name Role Phone Roxy Mehta MD Primary Care Provider [phone] Encounter Details Date Type Department Care Team (Late st Contact Info) Description 10/30/2017 Telephone Dermatology at [facility] [address] [place] [address] Joyce Truong MD [facility] DR SYLV[place] [address] Social History Tobacco Use Types Packs/Day Years [...] a call to the number provided of [phone] and left a message with the correct number to contact Yina at [phone]. documented in this encounter Plan of Treatment Not on file documented as of this encounter Visit Diagnoses Not on filedocumented in this encounter Care Teams Professional Development Manager Relationship Specialty Start Date End Date Roxy eMhta MD [address] [place] [address] PCP - General 02/23/10 documented as of this encounter
--- OUTSIDE RECORDS SUMMARY | 2024-01-05 03:04 | XMS_ITS | Encounter Summary ---
Author Organization [facility] [address] Care Team Providers Care Manager Ethics Name Role Phone Roxy Mehta MD Primary Care Provider [phone] Encounter Details Date Type Department Care Team (Latest Contact Info) Description 06/17/2021 10:00 AM EDT Office Visit Hematology/Oncology at [address] [address] Chris Jacobson MD [facility] DR HEMATOLOGY [place] [address] Samantha Pardo APRN [facility] DR [place]EMATOLOGY [place] [address] Iron deficiency anemia, unspecified iron deficiency anemia [...] female who I am seeing in the [facility]. She has been followed by hematology [...] Rfl: ??? fluticasone propionate (Flonase) 50 mcg/actuation [place], Suspension, Daily, Disp: , Rfl: ??? levothyroxine [...] 4.72 Hemoglobin 13.5 Hematocrit 42.6 Platelet 497(H) Neutrophil Absolute (ANC) - Automated 4.49 Ferritin 35 Iron 68 Blood 06/11/2021 Historical Provider HEMATOLOGY ORDERA BLES documented in this encounter Visit Diagnoses Diagnosis Iron deficiency anemia, unspecified iron deficiency anemia type Reactive thrombocytosis documented in this encounter Care Teams Manager Ethics Relationship Specialty Start Date End Date Roxy Mehta MD [address] [facility] [place] [address] PCP - General 02/23/10 documented as of this encounter
--- OUTSIDE RECORDS SUMMARY | 2024-01-05 03:05 | XMS_ITS | Encounter Summary ---
Author Organization [facility] [place] [address] Care Team Providers Care Stevedore Hold Name Role Phone Roxy Mehta MD Primary Care Provider [phone] Encounter Details Date Type Department Care Team (Latest Contact Info) Description 02/23/2015 11:17 AM EST - 02/23/2015 11:59 PM EST Hospital Encounter [place]ology [place] [address] Thrombocytosis; Leukocytosis Discharge Disposition: Home Social History [...] End Date fluticasone propionate (Flonase) 50 mcg/actuation [place], Suspension Daily 07/12/2012 DULoxetine (CYMBALTA) 30 mg [...] (V617F,)followed by SNP detection on an BRAY[employer] other things you bake 7500 Sequence Detection System. Results: ??Negative for [...] from the submitted specimen using the [employer] EZS[employer] BioRobot. The real time PCR was performed on the BRAYDEN 7500 system using fluorescently labeled probes for allelic discrimination References: ??Madan et al. Lancet 2005;365:6049-3421; Jose et al. Nature 2005;1-5; Dior et al. Lancet 2005;366:1148-9308; Solis et al. Blood 2005;106:3426-8521. CERNER MILLENNIUM Comment: [VERIFIED DATE]03.03.15 Verified By:Zeyad [...] ORDERABLE S Performing Organization Address [facility] Co de Phone Number [facility] * (ABNORMAL) Ferritin (02/23/2015 11:30 AM EST) Ferritin 11(L) 30 - 400 ng/mL [facility] MILLENNIUM Comment: Pediatric reference ranges not verified at [facility], interpret with caution. Reference ranges for females greater than 50 years of age approach values for men, i.e., 30-400 ng/mL. Blood specimen (specimen) 02/23/2015 11:30 AM EST 02/23/2015 11:40 AM EST Narrative Resulting Agency Comment Spec In Lab Chris Jacobson MD CHEMISTRY ORDERABLES Performing Organization Address [facility] Co de Phone Number [facility] MILLENNIUM * (ABNORMAL) Iron and TIBC (02/23/2015 11:30 AM EST) Iron 46 30 - 150 mcg/dL [facility] TIBC 449 250 - 450 mcg/dL [facility] Iron Saturation 10(L) 20 - 50 % CERN MILLENNIUM Blood specimen (specimen) 02/23/2015 11:30 AM EST 02/23/2015 11:40 AM EST Narrative Resulting Agency Comment Spec In Lab Chris Jacobson MD CHEMISTRY ORDERABLES Performing Organization Address [facility]/ZIP Co de Phone Number [facility] * (ABNORMAL) Comprehensive metabolic panel (non-fasting) (02/23/2015 11:30 AM EST) Glucose 111 65 - 199 mg/dL [facility] Comment:Diabetes: >=200 mg/d L plus symptoms Blood Urea Nitrogen 21(H) 8 - 18 mg/dL [facility] Creatinine 0.80 0.70 - 1.20 mg/dL [facility] MILLENNIUM Comment: Please note that the pediatric reference intervals supplied above were not validated at [facility]. Results from pediatric patients should be interpreted [...] the following links into your internet browser. [email or web address] Blood specimen (specimen) 02/23/2015 11:30 AM EST 02/23/2015 11:40 AM EST Narrative Resulting Agency Comment Spec In Lab Chris Jacobson MD CHEMISTRY ORDERABLES Performing Organization Address City/State/[facility] Co vt Phone Number [facility] documented in this encounter Visit Diagnoses Diagnosis Thrombocytosis Essential thrombocythemia Leukocytosis Leukocytosis, unspecified documented in this encounter Care Teams Stevedore Hold Relationship Specialty Start Date End Date Roxy Mehta MD [address] [place] [address] PCP - General 02/23/10 documented as of this encounter
--- OUTSIDE RECORDS SUMMARY | 2024-01-05 03:05 | XMS_ITS | Encounter Summary ---
Author Organization [facility] Address [facility] [place] [address] Care Team Providers Care Senior Cytogenetics Laboratory Director Name Role Phone Roxy Mehta MD Primary Care Provider [phone] Encounter Details Date Type Department Care Team (Late st Contact Info) Description 07/26/2016 Ancillary Procedure Radiology Library at [facility] [place] [id number] Roxy Mehta MD [address] [place] [address] Social History Tobacco Use Types [...] AM EDT) Narrative [facility] - 05/07/2020 4:40 PM EST This exam is auto-finalizing. It's purpose is for storage only. Roxy Mehta MD [facility] FILM LIBRARY ORD ERABLES [place], [place] documented in this encounter Visit Diagnoses Not on filedocumented in this encounter Care Teams Senior Cytogenetics Laboratory Director Relationship Specialty Start Date End Date Roxy Mehta MD [address] [place] [address] PCP - General 02/23/10 documented as of this encounter
--- OUTSIDE RECORDS SUMMARY | 2024-01-05 03:05 | XMS_ITS | Encounter Summary ---
Author Organization [facility] [place] [address] Care Team Providers Care Embalmer Apprentice Name Role Phone Roxy Mehta MD Primary Care Provider [phone] Reason for Visit * Reason Comments Anemia Encounter Details Date Type Department Care Team (Latest Contact Info) Description 09/15/2016 8:17 AM EDT - 09/15/2016 11:59 PM EDT Hospital Encounter Hematology [place] [address] Iron deficiency anemia, unspecified iron deficiency anemia [...] End Date fluticasone propionate (Flonase) 50 mcg/actuation [place], Suspension Daily 07/12/2012 cholecalciferol, Vitamin D3, 50 [...] mL/hr documented in this encounter Care Teams Embalmer Apprentice Relationship Specialty Start Date End Date Roxy Mehta MD [address] [place] [address] [address] [place] [address] PCP - General 02/23/10 documented as of this encounter
--- OUTSIDE RECORDS SUMMARY | 2024-01-05 03:05 | XMS_ITS | Encounter Summary ---
Author Organization [facility] [place] [address] Care Team Providers Care Event Sales Representative Name Role Phone Roxy Mehta MD Primary Care Provider [phone] Reason for Visit * Reason Comments Iron Deficiency Encounter Details Date Type Department Care Team (Latest Contact Info) Description 09/29/2016 8:12 AM EDT - 09/29/2016 11:59 PM EDT Hospital Encounter Hematology [place] [address] Iron deficiency anemia, unspecified iron deficiency anemia [...] End Date fluticasone propionate (Flonase) 50 mcg/actuation [place], Suspension Daily 07/12/2012 cholecalciferol, Vitamin D3, 50 [...] mL/hr documented in this encounter Care Teams Event Sales Representative Relationship Specialty Start Date End Date Roxy Mehta MD [address] [place] [address] PCP - General 02/23/10 documented as of this encounter
--- OUTSIDE RECORDS SUMMARY | 2024-01-05 03:05 | XMS_ITS | Encounter Summary ---
Author Organization [facility] [place] [address] Care Team Providers Care Diamond Setter Name Role Phone Roxy Mehta MD Primary Care Provider [phone] Encounter Details Date Type Department Care Team (Late st Contact Info) Description 09/12/2016 2:45 PM EDT Office Visit [place] [address] Chris Jacobson MD [facility] [address] [place] [address] Samantha Pardo APRN [facility] [address] [place] [address] Shauna Cuadra [facility] [address] HEMATOLOGY/[place] [address] Thrombocytosis; Elevated TSH Social History Tobacco Use [...] She was admitted for 2-3 days at [facility]. She was started on apixaban for [...] knees 5. Pulmonary Emboli Medications Medications 09/12/16 0524 Medication Sig Taking? apixaban (ELIQUIS) 5 mg [...] cytogenetics Myeloid Sequencing Panel (54-Gene Panel) SPECIMEN: ??[id number] Analysis: ??Examination of DNA extracted from peripheral [...] questions/concerns. Shauna Cuadra DO Hematology-Oncology Fellow Pager [phone] 09/12/2016 4:31 PM CC. Roxy Mehta MD [...] Reticulocyte % 3.1(H) 0.7 - 2.5 % [facility] Retic Abs # 0.140(H) 0.020 - 0.110 x10(6)/mc L [facility] Immature Retic% 22.7(H) 0.5 - 13.8 % [facility] Reticulated Hgb 36.4 29.8 - 39.4 pg [facility] Blood specimen (specimen) 10/03/2016 9:24 AM EDT 10/03/2016 9:27 AM EDT Narrative Resulting Agency Comment Spec In Lab Chris Jacobson MD HEMATOLOGY ORDERABLE S Performing Organization Address City/[facility]/ZIP Co de Phone Number [facility] [place] [address] * Ferritin (10/03/2016 9:24 AM EDT) Ferritin 400 30 - 400 ng/mL [facility] [...] Jacobson MD CHEMISTRY ORDERABLES Performing Organization Address [facility]/ZIP Co de Phone Number [facility] [place] [address] * Iron and TIBC (10/03/2016 9:24 AM EDT) [facility] Iron 74 30 - 150 mcg/dL [facility] TIBC 358 250 - 450 mcg/dL [facility] Iron Saturation 21 20 - 50 % [facility] Blood specimen (specimen) 10/03/2016 9:24 AM EDT 10/03/2016 9:27 AM EDT Narrative Resulting Agency Comment Spec In Lab Chris Jacobson MD CHEMISTRY ORDERABLES Performing Organization Address City/[facility]/ZIP Co de Phone Number [facility] [place] [address] * (ABNORMAL) Comprehensive metabolic panel (non-fasting) (10/03/2016 9:24 AM EDT) [facility] Signature Glucose 106 65 - 199 mg/dL [facility] Comment:Diabetes: >=200 mg/d L plus symptoms Blood Urea Nitrogen 14 8 - 18 mg/dL [facility] Creatinine 0.90 0.70 - 1.20 mg/dL [facility] [...] questions. Chloride 97(L) 98 - 107 mmol/L [facility] Carbon Dioxide 22 22 - 31 mmol/L [facility] Anion Gap 20(H) 5 - 15 mmol/L [facility] Calcium 9.8 8.5 - 10.5 mg/dL [facility] Protein, Total 7.5 6.1 - 8.0 gm/dL [facility] Albumin 4.3 3.2 - 5.2 gm/dL [facility] Aspartate Aminotransferase 13 0 - 30 unit/L [facility] Alanine Aminotransferase 16 0 - 30 unit/L [facility] Alkaline Phosphatase 115(H) 40 - 104 unit/L [facility] [...] the following links into your internet browser. [email or web address] Blood specimen (specimen) 10/03/2016 9:24 AM EDT 10/03/2016 9:27 AM EDT Narrative Resulting Agency Comment Spec In Lab Chris Jacobson MD CHEMISTRY ORDERABLES [facility] [place] [id number] documented in this encounter Visit Diagnoses Diagnosis Thrombocytosis Essential thrombocythemia Elevated TSH Other abnormal blood chemistry documented in this encounter Care Teams Diamond Setter Relationship Specialty Start Date End Date Roxy Mehta MD [address] [place] [address] PCP - General 02/23/10 documented as of this encounter
--- OUTSIDE RECORDS SUMMARY | 2024-01-05 03:05 | XMS_ITS | Encounter Summary ---
Author Organization [facility] [place] [address] Care Team Providers Care Secretary Receptionist Name Role Phone Roxy Mehta MD Primary Care Provider [phone] Encounter Details Date Type Department Care Team (Late st Contact Info) Description 03/06/2015 Orders Only [place]ematology [place] [address] Argelia Teresa MD [facility] HEMATOLGY/[place] [address] Social History Tobacco Use Types Packs/Day Years [...] on filedocumented in this encounter Care Teams Secretary Receptionist Relationship Specialty Start Date End Date Roxy Mehta MD [address] [place] [address] PCP - General 02/23/10 documented as of this encounter
--- OUTSIDE RECORDS SUMMARY | 2024-01-05 03:05 | XMS_ITS | Encounter Summary ---
Author Organization [facility] Address [facility] [place] [address] Care Team Providers Care Wholesaler Name Role Phone Willem Mehta MD Primary Care Provider [phone] Encounter Details Date Type Department Care Team (Late st Contact Info) Description 06/18/2015 Telephone Hematology [place] [address] Argelia Teresa MD [facility] HEMATOLGY/[place] [address] Social History Tobacco Use Types Packs/Day Years [...] WILLEM MEHTA MD that patient had normal [place] and EGD. She had plt elevated to [...] also be useful but this may not order picker/assembler intermittent bleeding. We will see her in follow up as needed documented in this encounter Plan of Treatment Not on file documented as of this encounter Visit Diagnoses Not on filedocumented in this encounter Care Teams Wholesaler Relationship Specialty Start Date End Date Willem Mehta MD [address] [place] [address] PCP - General 02/23/10 documented as of this encounter
--- OUTSIDE RECORDS SUMMARY | 2024-01-05 03:05 | XMS_ITS | Encounter Summary ---
Author Organization [facility] [place] [address] Care Team Providers Care Diamond Selector Name Role Phone Roxy Mehta MD Primary Care Provider [phone] Encounter Details Date Type Department Care Team (Late st Contact Info) Description 09/07/2016 Orders Only [place]ology [place] [address] Samantha Pardo, SENIOR ANIMATOR [facility] [address] [place] [address] Iron deficiency anemia due to chronic blood [...] Agency Comment Spec In Lab Samantha Pardo SENIOR ANIMATOR CHEMISTRY ORDERABLES Performing Organization Address City/[facility]/ZIP Co de Phone Number [facility] [place] [address] * Lactate Dehydrogenase (09/12/2016 1:47 PM EDT) Lactate Dehydrogenase 163 110 - 220 unit/L [facility] Blood specimen (specimen) 09/12/2016 1:47 PM EDT 09/12/2016 1:54 PM EDT Narrative Resulting Agency Comment Spec In Lab Samantha Pardo SENIOR ANIMATOR CHEMISTRY ORDERABLES Performing Organization Address [facility] Co de Phone Number [facility] [place] [address] * (ABNORMAL) Reticulocyte Count (09/12/2016 1:47 PM [...] APRN HEMATOLOGY ORDERABLE S Performing Organization Address [facility]/ZIP Co de Phone Number [facility] [place] [address] * (ABNORMAL) Iron and TIBC (09/12/2016 1:47 PM EDT) Iron 20(L) 30 - 150 mcg/dL [facility] TIBC 456(H) 250 - 450 mcg/dL [facility] Iron Saturation 4(L) 20 - 50 % [facility] Blood specimen (specimen) 09/12/2016 1:47 PM EDT 09/12/2016 1:54 PM EDT Narrative Resulting Agency Comment Spec In Lab Samantha Pardo SENIOR ANIMATOR CHEMISTRY ORDERABLES Performing Organization Address City/[facility]/ZIP Co de Phone Number [facility] [place] [address] * (ABNORMAL) Ferritin (09/12/2016 1:47 PM EDT) Ferritin 25(L) 30 - 400 ng/mL [facility] Comment: Pediatric reference ranges not verified at [facility], interpret with caution. Reference ranges for females greater than 50 years of age approach values for men, i.e., 30-400 ng/mL. Blood specimen (specimen) 09/12/2016 1:47 PM EDT 09/12/2016 1:54 PM EDT Narrative Resulting Agency Comment Spec In Lab Samantha Pardo SENIOR ANIMATOR CHEMISTRY ORDERABLES Performing Organization Address [facility] Co de Phone Number [facility] [place] [address] * (ABNORMAL) Comprehensive metabolic panel (non-fasting) (09/12/2016 1:47 PM EDT) Glucose 90 65 - 199 mg/dL [facility] Comment:Diabetes: >=200 mg/d L plus symptoms Blood Urea Nitrogen 22(H) 8 - 18 mg/dL [facility] Creatinine 0.89 0.70 - 1.20 mg/dL [facility] Comment: Please note that the pediatric reference intervals supplied above were not validated at [facility]. Results from pediatric patients should be interpreted [...] the following links into your internet browser. [email or web address] Blood specimen (specimen) 09/12/2016 1:47 PM EDT 09/12/2016 1:54 PM EDT Narrative Resulting Agency Comment Spec In Lab Samantha Pardo APRN CHEMISTRY ORDERAB[place] [address] documented in this encounter Visit Diagnoses Diagnosis Iron deficiency anemia due to chronic blood loss Iron deficiency anemia secondary to blood loss (chronic) documented in this encounter Care Teams Diamond Selector Relationship Specialty Start Date End Date Roxy Mehta MD [address] [place] [address] PCP - General 02/23/10 documented as of this encounter
--- OUTSIDE RECORDS SUMMARY | 2024-01-05 03:05 | XMS_ITS | Encounter Summary ---
Author Organization [facility] Address [facility] [place] [address] Care Team Providers Care Pediatric Anesthesiologist Name Role Phone Roxy Mehta MD Primary Care Provider [phone] Encounter Details Date Type Department Care Team (Late st Contact Info) Description 08/28/2016 Ancillary Procedure Radiology Library [place] [facility] [id number] Roxy Mehta MD [address] [place] [address] Social History Tobacco Use Types [...] Chest (08/28/2016 12:00 AM EDT) Narrative [facility] - 05/07/2020 4:43 PM EST This exam is auto-finalizing. It's purpose is for storage only. Roxy Mehta MD [facility] FILM LIBRARY ORD ERABLES [place], [place] documented in this encounter Visit Diagnoses Not on filedocumented in this encounter Care Teams Pediatric Anesthesiologist Relationship Specialty Start Date End Date Roxy Mehta MD [address] [place] [address] PCP - General 02/23/10 documented as of this encounter
--- OUTSIDE RECORDS SUMMARY | 2024-01-05 03:05 | XMS_ITS | Encounter Summary ---
Author Organization [facility] [place] [address] Care Team Providers Care Curing Bin Operator Name Role Phone Roxy Mehta MD Primary Care Provider [phone] Encounter Details Date Type Department Care Team (Latest Contact Info) Description 09/12/2016 1:24 PM EDT - 09/12/2016 1:36 PM EDT Hospital Encounter [place]ology [place] [address] Iron deficiency anemia due to chronic blood [...] End Date fluticasone propionate (Flonase) 50 mcg/actuation [place], Suspension Daily 07/12/2012 cholecalciferol, Vitamin D3, 50 [...] * T4, free (09/12/2016 1:47 PM EDT) [facility] Free T4 1.10 0.93 - 1.70 ng/dL [facility] Blood specimen (specimen) Venous Draw / Unknown 09/12/2016 1:47 PM EDT 09/12/2016 2:28 PM EDT Narrative Resulting Agency Comment Spec In Lab Samantha Pardo APRN CHEMISTRY ORDERABLES [facility] [place] [address] * Scan, Peripheral Blood (09/12/2016 1:47 PM EDT) [facility] Plat estimate Increased [facility] RBC Morphology Abnormal [facility] Microcyte 1-5 /HPF [facility] Hypochromia Slight [facility] Polychromasia Present >5/HPF [facility] Ovalocytes 1-5 /HPF [facility] Plat, Giant Less than 1 /HPF [facility] Blood specimen (specimen) 09/12/2016 1:47 PM EDT 09/12/2016 1:54 PM EDT Narrative Resulting Agency Comment Spec In Lab Samantha Pardo APRN HEMATOLOGY ORDERABLE S Performing Organization Address City/[facility]/ZIP Co de Phone Number [facility] [place] [address] * (ABNORMAL) Differential, Automated (09/12/2016 1:47 PM EDT) [facility] Neutrophil % 52.9 % [facility] Neutrophil Absolute 5.48 1.70 - 6.10 x10(3)/ L [facility] Lymph % 36.1 % [facility] Lymphocytes Abs 3.7(H) 0.9 - 3.2 x10(3)/ L [facility] Monocyte % 6.9 % [facility] Monocyte Abs 0.7 0.3 - 0.9 x10(3)/ L [facility] Eos % 2.7 % [facility] Eosinophils Abs 0.3 0.0 - 0.4 x10(3)/[facility] Basophil % 0.9 % [facility] Baso Absolute 0.1 0.0 - 0.1 x10(3)/[facility] Immature Gran % 0.50 % [facility] Comment: Immature granulocytes(IG's)percentage and absolute count will include metamyelocytes, myelocytes, and promyelocytes. Blood smears from CBCs yielding IG's will be scanned manually for concordance. If this scan disagrees with the automated IG or if promyelocytes are noted, a manual differential will be performed. Immature Gran Absolute 0.05(H) 0.00 - 0.04 x10(3)/ L [facility] Blood specimen (specimen) 09/12/2016 1:47 PM EDT 09/12/2016 1:54 PM EDT Narrative Resulting Agency Comment Spec In Lab Samantha Pardo SALES SUPPORT ADVISOR HEMATOLOGY ORDERABLE S [facility] [place] [address] * (ABNORMAL) Hemogram (09/12/2016 1:47 PM EDT) White Blood Cell 10.3(H) 4.0 - 9.5 x10(3)/ L [facility] Red Blood Cell 3.34(L) 4.00 - 5.21 x10(6)/mc L [facility] Hemoglobin 8.5(L) 11.7 - 15.5 gm/dL [facility] Hematocrit 28.3(L) 35.7 - 45.8 % [facility] Mean Cell Volume 84.7 82.6 - 94.4 fL [facility] Mean Cell Hemoglobin 25.4(L) 27.1 - 32.0 pg [facility] Mean Cell Hemoglobin Concentration 30.0(L) 31.7 - 35.0 gm/dL [facility] Platelet 928(H) 145 - 357 x10(3)/mc L [facility] RDW Standard Deviation 47.8(H) 37.0 - 46.0 fL [facility] RDW coefficient of variation 15.8(H) 11.5 - 14.1 % [facility] Mean Platelet Volume 8.4 7.6 - 12.9 fL [facility] NRBC% auto 0.0 % [facility] NRBC Absolute 0.000 0.000 - 0.000 x10(3)/mc L [facility] Blood specimen (specimen) 09/12/2016 1:47 PM EDT 09/12/2016 1:54 PM EDT Narrative Resulting Agency Comment Spec In Lab Samantha Pardo APRN HEMATOLOGY ORDERABLE S Performing Organization Address City/State/[facility] Co de Phone Number [facility] [place] [address] * (ABNORMAL) TSH (09/12/2016 1:47 PM EDT) Thyroid Stimulating Hormone 4.27(H) 0.27 - 4.20 mlU/ML [facility] Blood specimen (specimen) 09/12/2016 1:47 PM EDT 09/12/2016 1:54 PM EDT Narrative Resulting Agency Comment Spec In Lab Samantha D Schaal SALES SUPPORT ADVISOR CHEMISTRY ORDERABLES Performing Organization Address City/[facility]/ZIP Co de Phone Number [facility] [place] [address] * Lactate Dehydrogenase (09/12/2016 1:47 PM EDT) Lactate Dehydrogenase 163 110 - 220 unit/L [facility] Blood specimen (specimen) 09/12/2016 1:47 PM EDT 09/12/2016 1:54 PM EDT Narrative Resulting Agency Comment Spec In Lab Samantha Pardo SALES SUPPORT ADVISOR CHEMISTRY ORDERABLES Performing Organization Address [facility] Co de Phone Number [facility] [place] [address] * (ABNORMAL) Reticulocyte Count (09/12/2016 1:47 PM EDT) Reticulocyte % 4.4(H) 0.7 - 2.5 % [facility] Retic Abs # 0.150(H) 0.020 - 0.110 x10(6)/mc L [facility] Immature Retic% 27.6(H) 0.5 - 13.8 % [facility] Reticulated Hgb 22.5(L) 29.8 - 39.4 pg [facility] Blood specimen (specimen) 09/12/2016 1:47 PM EDT 09/12/2016 1:54 PM EDT Narrative Resulting Agency Comment Spec In Lab Samantha Pardo SALES SUPPORT ADVISOR HEMATOLOGY ORDERABLE S Performing Organization Address City/[facility]/ZIP Co de Phone Number [facility] [place] [address] * (ABNORMAL) Iron and TIBC (09/12/2016 1:47 PM EDT) Iron 20(L) 30 - 150 mcg/dL [facility] TIBC 456(H) 250 - 450 mcg/dL [facility] Iron Saturation 4(L) 20 - 50 % [facility] Blood specimen (specimen) 09/12/2016 1:47 PM EDT 09/12/2016 1:54 PM EDT Narrative Resulting Agency Comment Spec In Lab Samantha Pardo SALES SUPPORT ADVISOR CHEMISTRY ORDERABLES Performing Organization Address [facility]/ZIP Co de Phone Number [facility] [place] [address] * (ABNORMAL) Ferritin (09/12/2016 1:47 PM EDT) Ferritin 25(L) 30 - 400 ng/mL [facility] Comment: Pediatric reference ranges not verified at [facility], interpret with caution. Reference ranges for females greater than 50 years of age approach values for men, i.e., 30-400 ng/mL. Blood specimen (specimen) 09/12/2016 1:47 PM EDT 09/12/2016 1:54 PM EDT Narrative Resulting Agency Comment Spec In Lab Samantha Pardo SALES SUPPORT ADVISOR CHEMISTRY ORDERABLES Performing Organization Address [facility] Co de Phone Number [facility] [place] [address] * (ABNORMAL) Comprehensive metabolic panel (non-fasting) (09/12/2016 1:47 PM EDT) Pathologist [facility] Glucose 90 65 - 199 mg/dL [facility] Comment:Diabetes: >=200 mg/d L plus symptoms Blood Urea Nitrogen 22(H) 8 - 18 mg/dL [facility] Creatinine 0.89 0.70 - 1.20 mg/dL [facility] Comment: Please note that the pediatric reference intervals supplied above were not validated at [facility]. Results from pediatric patients should be interpreted in conjunction to the patient's age, height and muscle mass. Sodium 139 135 - 145 mmol/L [facility] Potassium 4.2 3.5 - 5.0 mmol/L [facility] Comment: Please note: ??Patients with WBC >100,000 may have falsely elevated Potassium levels. ??For accurate Potassium quantification in these patients send serum separator tube (gold top) for subsequent determinations. ??Contact the Clinical Chemistry Laboratory if there are any questions. Chloride 100 98 - 107 mmol/L [facility] Carbon Dioxide 20(L) 22 - 31 mmol/L [facility] Anion Gap 19(H) 5 - 15 mmol/L [facility] Calcium 9.5 8.5 - 10.5 mg/dL [facility] Protein, Total 7.4 6.1 - 8.0 gm/dL [facility] Albumin 4.4 3.2 - 5.2 gm/dL [facility] Aspartate Aminotransferase 19 0 - 30 unit/L [facility] Alanine Aminotransferase 13 0 - 30 unit/L [facility] Alkaline Phosphatase 131(H) 40 - 104 unit/L [facility] Bilirubin, Total <0.2(L) 0.2 - 1.3 mg/dL [facility] Bilirubin, Direct <0.1 0.0 - 0.3 mg/dL [facility] Est Glomerular Filtration Rate >60 >=60 [facility] Comment: This estimated GFR (eGFR) [...] the following links into your internet browser. [email or web address] Blood specimen (specimen) 09/12/2016 1:47 PM EDT 09/12/2016 1:54 PM EDT Narrative Resulting Agency Comment Spec In Lab Samantha Pardo APRN CHEMISTRY ORDERABLES [facility] [place] [address] documented in this encounter Visit Diagnoses Diagnosis Iron deficiency anemia due to chronic blood loss Iron deficiency anemia secondary to blood loss (chronic) documented in this encounter Care Teams Curing Bin Operator Relationship Specialty Start Date End Date Roxy Mehta MD [address] [facility] [place] [address] PCP - General 02/23/10 documented as of this encounter
--- OUTSIDE RECORDS SUMMARY | 2024-01-05 03:05 | XMS_ITS | Encounter Summary ---
Author Organization [facility] [place] [address] Care Team Providers Care Semiautomatic Taper Operator Name Role Phone Roxy Mehta MD Primary Care Provider [phone] Reason for Visit * Auth/Cert Specialty Diagnoses / Procedures Referred By Kishore t Referred To Contact Diagnoses FE Anemia Procedures PRG GI TRACT IMAGING, INTRALUMINAL, ESOPHAGUS THROUGH ILEUM, W INTERP & REPORT VIDEO CAPSULE ENDOSCOPY Referral ID Status Reason Start Date Expiration Date Visits Re quested Visits Authorized [id number] 1 1 Encounter Details Date Type Department Care Team (Late st Contact Info) Description 09/24/2015 7:30 AM EDT - 09/24/2015 8:00 AM EDT [place] [address] Darlyn Escalante MD [facility] [place] [address] VIDEO CAPSULE ENDOSCOPY (WRVU 2.24) Social History [...] End Date fluticasone propionate (Flonase) 50 mcg/actuation [place], Suspension Daily 07/12/2012 aspirin 81 mg Tablet, [...] Escalante MD - 09/25/2015 8:28 AM EDT [facility] Operative Note Patient Name: Patricia Liu : [id number] MR#: [id number] Case Date: 09/24/2015 Surgeon: Surgeon(s) and Role: [...] CAPSULE ENDOSCOPY (09/24/2015 7:41 AM EDT) Pathologist [facility] VIDEO CAPSULE ENDOSCOPY [facility] Endoscopy ___ Procedure Date: 09/24/2015 7:41 AM ? Patient Name: Patricia Liu ? N: [id number] ? Date of : 1940 ? Age: 74 ? Order #: [id number] ? Instrument Name: ? ___ Procedure: ? [...] on filedocumented in this encounter Care Teams Semiautomatic Taper Operator Relationship Specialty Start Date End Date Roxy Mehta MD [address] [place] [address] PCP - General 02/23/10 documented as of this encounter
--- OUTSIDE RECORDS SUMMARY | 2024-01-05 03:05 | XMS_ITS | Encounter Summary ---
Author Organization [facility] Address [facility] [address] Care Team Providers Care Adjunct Lecturer Name Role Phone Roxy Mehta MD Primary Care Provider [phone] Encounter Details Date Type Department Care Team (Late st Contact Info) Description 06/24/2008 [place] [address] Kimberley Coffman MD [facility] [place] [address] Social History Tobacco Use Types Packs/Day Years [...] 10:13 AM EDT) Surgical Pathology Report [id number] ? Location: OPW The signing pathologist has (i) examined the relevant preparation(s) for the specimen(s) and (ii) rendered or confirmed the diagnosis(es). . ?Pathology Surgical Pathology Final Report Clinical Information Specimen Submitted: A - Left breast Clinical History: New calcifications Clinical Diagnosis: FCD DCIS Report to: Roxy Mehta MD [facility] [address] [place], [place] ??[address] Gross Description Specimen: ?Received in two containers. [...] in rendering the final pathologic diagnosis. [facility] 06/24/2008 10:1 3 AM EDT Kimberley Rose MD PATHOLOG Y/CYTOLOGY ORDERABLES [facility] documented in this encounter Visit Diagnoses Not on filedocumented in this encounter Care Teams Adjunct Lecturer Relationship Specialty Start Date End Date Roxy Mehta MD [address] [place] [address] PCP - General 02/23/10 documented as of this encounter
--- OUTSIDE RECORDS SUMMARY | 2024-01-05 03:05 | XMS_ITS | Encounter Summary ---
Author Organization [facility] [place] [address] Care Team Providers Care Business Objects Developer Name Role Phone Roxy Mehta MD Primary Care Provider [phone] Encounter Details Date Type Department Care Team (Late st Contact Info) Description 03/26/2015 Orders Only [place]ology [place] [address] Argelia Teresa MD [facility] HEMATOLGY/[place] [address] Social History Tobacco Use Types Packs/Day Years [...] on filedocumented in this encounter Care Teams Business Objects Developer Relationship Specialty Start Date End Date Roxy Mehta MD [address] [place], [place] [id number] PCP - General 02/23/10 documented as of this encounter
--- OUTSIDE RECORDS SUMMARY | 2024-01-05 03:05 | XMS_ITS | Encounter Summary ---
Author Organization [facility] [place] [address] Care Team Providers Care Meat Hostess Name Role Phone Roxy Mehta MD Primary Care Provider [phone] Reason for Visit * Auth/Cert Specialty Diagnoses / Procedures Referred By Kishore t Referred To Contact Diagnoses FE Anemia Procedures PRG GI TRACT IMAGING, INTRALUMINAL, ESOPHAGUS THROUGH ILEUM, W INTERP & REPORT VIDEO CAPSULE ENDOSCOPY Referral ID Status Reason Start Date Expiration Date Visits Re quested Visits Authorized [id number] 1 1 Encounter Details Date Type Department Care Team (Latest Contact Info) Description 09/24/2015 7:30 AM EDT - 09/24/2015 4:03 PM EDT Hospital Encounter [place] [address] Darlyn Escalante MD [facility] [place] [address] Discharge Disposition: Home Social History Tobacco Use [...] End Date fluticasone propionate (Flonase) 50 mcg/actuation [place], Suspension Daily 07/12/2012 aspirin 81 mg Tablet, [...] Escalante MD - 09/25/2015 8:28 AM EDT [facility] Operative Note Patient Name: Patricia Liu : [id number] MR#: [id number] Case Date: 09/24/2015 Surgeon: Surgeon(s) and Role: [...] (09/24/2015 7:41 AM EDT) VIDEO CAPSULE ENDOSCOPY [facility] Endoscopy ___ Procedure Date: 09/24/2015 7:41 AM ? Patient Name: Patricia Liu ? Date of : 1940 ? Age: 74 ? Order #: [id number] ? Instrument Name: ? ___ Procedure: ? [...] on filedocumented in this encounter Care Teams Meat Hostess Relationship Specialty Start Date End Date Roxy Mehta MD [address] [place] [address] PCP - General 02/23/10 documented as of this encounter
--- OUTSIDE RECORDS SUMMARY | 2024-01-05 03:05 | XMS_ITS | Encounter Summary ---
Author Organization [facility] [place] [address] Care Team Providers Care Paint Spray Inspector Name Role Phone Roxy Mehta MD Primary Care Provider [phone] Encounter Details Date Type Department Care Team (Latest Contact Info) Description 09/12/2016 1:37 PM EDT - 09/12/2016 11:59 PM EDT Hospital Encounter Hematology [place] [address] Discharge Disposition: Home Social History Tobacco Use [...] End Date fluticasone propionate (Flonase) 50 mcg/actuation [place], Suspension Daily 07/12/2012 cholecalciferol, Vitamin D3, 50 [...] Urine 6 0 - 29 mcg/mg Cr [facility] Comment: Reference Ranges: <30 mcg/mg: [...] 2, 357? 362 Albumin, Urine 8.2 mg/L [facility] Creatinine, Urine 142 mg/dL [facility] Urine specimen (specimen) Urine / Unknown 09/12/2016 1:50 PM EDT 09/12/2016 2:01 PM EDT Narrative Resulting Agency Comment Spec In Lab Roxy Mehta MD URINE ORDERABLES [facility] [place] [address] * (ABNORMAL) Hemoglobin A1c (09/12/2016 1:47 PM EDT) Hemoglobin A1c 5.9(H) 4.3 - 5.6 % [facility] Comment: Reference Range: 4.3 - [...] [id number] Estimated Average Glucose See note mg/dL [facility] Comment: Estimated Average Glucose not [...] into estimated average glucose values. ??Diabetes Care 2008:31(8):0089-7702. Blood specimen (specimen) Venous Draw / Unknown 09/12/2016 1:47 PM EDT 09/12/2016 1:54 PM EDT Narrative Resulting Agency Comment Spec In Lab Roxy Mehta MD CHEMISTRY ORDERABLES Performing Organization Address City/State/[facility] Co de Phone Number [facility] [place] [address] * (ABNORMAL) Lipid Panel (09/12/2016 1:47 PM EDT) Cholesterol, Total 291(H) <=239 mg/dL [facility] Triglyceride 180 <=199 mg/dL [facility] HDL Cholesterol 72 >=40 mg/dL [facility] LDL Cholesterol 183 <=190 mg/dL [facility] Cholesterol/HDL Ratio 4.0 ratio [facility] Lipid Interpretation See Note [facility] Comment: Lipid management should be guided by a patient? s ASCVD risk, goals and preferences. ACC/AHA Guidelines recommend high intensity statin if clinical ASCVD or LDL greater than or equal to 190 mg/dL. http://[employer] ([employer])urLiveBid.com/QOO-CQN-Yoztkdxwk Adults aged 40-75 with LDL 70-189 mg/dL should have their 10 year ASCVD risk estimated with the ACC/AHA ASCVD risk automotive collision estimator http://tools.acc.org/FBDDY-Nirk-Ohebnvaul/ Statin should be discussed if risk greater [...] In Lab Roxy Mehta MD CHEMISTRY ORDERABLES [facility] [place] [address] documented in this encounter Visit Diagnoses Not on filedocumented in this encounter Care Teams Paint Spray Inspector Relationship Specialty Start Date End Date Roxy Mehta MD [address] [place] [address] PCP - General 02/23/10 documented as of this encounter
--- OUTSIDE RECORDS SUMMARY | 2024-01-05 03:05 | XMS_ITS | Encounter Summary ---
Author Organization [facility] [place] [address] Care Team Providers Care Cs Associate Name Role Phone Roxy Mehta MD Primary Care Provider [phone] Encounter Details Date Type Department Care Team (Latest Contact Info) Description 10/03/2016 9:14 AM EDT - 10/03/2016 11:59 PM EDT Hospital Encounter [place]ology [place] [address] Thrombocytosis Discharge Disposition: Home Social History Tobacco [...] End Date fluticasone propionate (Flonase) 50 mcg/actuation [place], Suspension Daily 07/12/2012 cholecalciferol, Vitamin D3, 50 [...] LABORATORY Neutrophil Absolute 4.34 1.70 - 6.10 x10(3)/[facility] Lymph % 32.9 % [facility] Lymphocytes Abs 2.6 0.9 - 3.2 x10(3)/[facility] LABORATORY Monocyte % 8.4 % [facility] Monocyte Abs 0.7 0.3 - 0.9 x10(3)/[facility] LABORATORY Eos % 1.5 % [facility] Eosinophils Abs 0.1 0.0 - 0.4 x10(3)/[facility] LABORATORY Basophil % 1.3 % [facility] Baso Absolute 0.1 0.0 - 0.1 x10(3)/[facility] Immature Gran % 0.50 % [facility] Comment: Immature granulocytes(IG's)percentage and absolute count will include metamyelocytes, myelocytes, and promyelocytes. Blood smears from CBCs yielding IG's will be scanned manually for concordance. If this scan disagrees with the automated IG or if promyelocytes are noted, a manual differential will be performed. Immature Gran Absolute 0.04 0.00 - 0.04 x10(3)/[facility] Blood specimen (specimen) 10/03/2016 9:24 AM EDT 10/03/2016 9:27 AM EDT Narrative Resulting Agency Comment Spec In Lab Chris Jacobson MD HEMATOLOGY ORDERABLE S [facility] [place] [address] * (ABNORMAL) Hemogram (10/03/2016 9:24 AM EDT) White Blood Cell 7.8 4.0 - 9.5 x10(3)/mc L [facility] Red Blood Cell 4.40 4.00 - 5.21 x10(6)/ L [facility] Hemoglobin 11.6(L) 11.7 - 15.5 gm/dL [facility] Hematocrit 38.1 35.7 - 45.8 % [facility] Mean Cell Volume 86.6 82.6 - 94.4 fL [facility] Mean Cell Hemoglobin 26.4(L) 27.1 - 32.0 pg [facility] Mean Cell Hemoglobin Concentration 30.4(L) 31.7 - 35.0 gm/dL [facility] Platelet 688(H) 145 - 357 x10(3)/mc L [facility] RDW Standard Deviation 60.5(H) 37.0 - 46.0 fL [facility] RDW coefficient of variation 19.4(H) 11.5 - 14.1 % [facility] Mean Platelet Volume 8.6 7.6 - 12.9 fL [facility] NRBC% auto 0.0 % [facility] NRBC Absolute 0.000 0.000 - 0.000 x10(3)/mc L [facility] Blood specimen (specimen) 10/03/2016 9:24 AM EDT 10/03/2016 9:27 AM EDT Narrative Resulting Agency Comment Spec In Lab Chris Jacobson MD HEMATOLOGY ORDERABLE S [facility] [place] [address] * (ABNORMAL) Reticulocyte Count (10/03/2016 9:24 AM [...] MD HEMATOLOGY ORDERABLE S Performing Organization Address [facility]/ZIP Co de Phone Number [facility] [place] [address] * Ferritin (10/03/2016 9:24 AM EDT) [facility] Signature Ferritin 400 30 - 400 ng/mL [facility] Comment: Pediatric reference ranges not verified at [facility], interpret with caution. Reference ranges for females greater than 50 years of age approach values for men, i.e., 30-400 ng/mL. Blood specimen (specimen) 10/03/2016 9:24 AM EDT 10/03/2016 9:27 AM EDT Narrative Resulting Agency Comment Spec In Lab Chris Jacobson MD CHEMISTRY ORDERABLES Performing Organization Address [facility]/ZIP Co de Phone Number [facility] [place] [address] * Iron and TIBC (10/03/2016 9:24 AM EDT) [facility] Iron 74 30 - 150 mcg/dL [facility] TIBC 358 250 - 450 mcg/dL [facility] Iron Saturation 21 20 - 50 % [facility] Blood specimen (specimen) 10/03/2016 9:24 AM EDT 10/03/2016 9:27 AM EDT Narrative Resulting Agency Comment Spec In Lab Chris Jacobson MD CHEMISTRY ORDERABLES Performing Organization Address [facility]/ZIP Co de Phone Number [facility] [place] [address] * (ABNORMAL) Comprehensive metabolic panel (non-fasting) (10/03/2016 9:24 AM EDT) [facility] Signature Glucose 106 65 - 199 mg/dL [facility] Comment:Diabetes: >=200 mg/d L plus symptoms Blood Urea Nitrogen 14 8 - 18 mg/dL [facility] Creatinine 0.90 0.70 - 1.20 mg/dL [facility] Comment: Please note that the pediatric reference intervals supplied above were not validated at [facility]. Results from pediatric patients should be interpreted in conjunction to the patient's age, height and muscle mass. Sodium 139 135 - 145 mmol/L [facility] Potassium 4.2 3.5 - 5.0 mmol/L [facility] Comment: Please note: ??Patients with WBC >100,000 may have falsely elevated Potassium levels. ??For accurate Potassium quantification in these patients send serum separator tube ([facility] top) for subsequent determinations. ??Contact the [...] the following links into your internet browser. [email or web address] Blood specimen (specimen) 10/03/2016 9:24 AM EDT 10/03/2016 9:27 AM EDT Narrative Resulting Agency Comment Spec In Lab Chris Jacobson MD CHEMISTRY ORDERABLES Performing Organization Address City/[facility] Co de Phone Number [facility] [place] [address] documented in this encounter Visit Diagnoses Diagnosis Thrombocytosis Essential thrombocythemia documented in this encounter Care Teams Cs Associate Relationship Specialty Start Date End Date Roxy Mehta MD [address] [place] [address] PCP - General 02/23/10 documented as of this encounter
--- OUTSIDE RECORDS SUMMARY | 2024-01-05 03:05 | XMS_ITS | Encounter Summary ---
Author Organization [facility] [place] [address] Care Team Providers Care Isotope Technician Name Role Phone Roxy Mehta MD Primary Care Provider [phone] Reason for Visit * Reason Comments Advice Only * Consultation (Routine) - Closed Specialty Diagnoses / Procedures Referred By Contoziel t Referred To Contact Hematology and Oncology Diagnoses elevated platelet count Roxy Mehta MD [address] [place] [address] [facility] Onc [address] [place] [address] Referral ID Status Reason Start Date Expiration Date V isits Requested Visits Authorized [id number] Closed Consult, Test & Treat Connection Center 02/05/2015 02/05/2016 1 1 Encounter Details Date Type Department Care Team (Late st Contact Info) Description 02/23/2015 9:45 AM EST Office Visit [place]ology [place] [address] Chris Jacobson MD [facility] [address] [place] [address] Samantha Pardo APRN [facility] [address] [place] [address] Argelia Feldman MD [facility] HEMATOLGY/[place] [address] Thrombocytosis Social History Tobacco Use [...] report acquired (02/23/2015 12:20 PM EST) Pathologist [facility] Cytogenetics Acquired Report Final Report Specimen [...] dual-fusion BCR-ABL1 fusion probe associated with t(9;22) ([employer] revealed 0% of the cells with a signal pattern consistent with the BCR-ABL1 fusion gene in 220 cells. This was within the normal limits (<1.0%). Thus, there was no evidence of the BCR-ABL1 fusion. ---Recommendation- -- Correlation with clinical and pathological studies is suggested. ---Disclaimer--- The FISH test was developed and its performance characteristics were determined by the [facility] Cytogenetics Laboratory as required by CLIA? 88 [...] the test? s accuracy and precision. The [facility] Cytogenetics Laboratory is certified under the CLIA? [...] SEND OUT ORDERAB LES Performing Organization Address [facility] de Phone Number [facility] * (ABNORMAL) Ferritin (02/23/2015 11:30 AM EST) Ferritin 11(L) 30 - 400 ng/mL [facility] Comment: Pediatric reference ranges not verified at [facility], interpret with caution. Reference ranges for females greater than 50 years of age approach values for men, i.e., 30-400 ng/mL. Blood specimen (specimen) 02/23/2015 11:30 AM EST 02/23/2015 11:40 AM EST Narrative Resulting Agency Comment Spec In Lab Chris Jacobson MD CHEMISTRY ORDERABLES Performing Organization Address [facility] Phone Number [facility] MILLENNIUM * (ABNORMAL) Iron and TIBC (02/23/2015 11:30 AM EST) Iron 46 30 - 150 mcg/dL [facility] TIBC 449 250 - 450 mcg/dL [facility] Iron Saturation 10(L) 20 - 50 % [facility] Blood specimen (specimen) 02/23/2015 11:30 AM EST 02/23/2015 11:40 AM EST Narrative Resulting Agency Comment Spec In Lab Chris Jacobson MD CHEMISTRY ORDERABLES Performing Organization Address [facility] de Phone Number [facility] MILLENNIUM * (ABNORMAL) Comprehensive metabolic panel (non-fasting) (02/23/2015 11:30 AM EST) Glucose 111 65 - 199 mg/dL [facility] Comment:Diabetes: >=200 mg/d L plus symptoms Blood Urea Nitrogen 21(H) 8 - 18 mg/dL [facility]ILLENNIUM Creatinine 0.80 0.70 - 1.20 mg/dL [facility] Comment: Please note that the pediatric reference intervals supplied above were not validated at [facility]. Results from pediatric patients should [...] the following links into your internet browser. [email or web address] Blood specimen (specimen) 02/23/2015 11:30 AM EST 02/23/2015 11:40 AM EST Narrative Resulting Agency Comment Spec In Lab Chris Jacobson MD CHEMISTRY ORDERABLES Performing Organization Address City/State/[facility] Co de Phone Number [facility] documented in this encounter Visit Diagnoses Diagnosis Thrombocytosis Essential thrombocythemia documented in this encounter Care Teams Isotope Technician Relationship Specialty Start Date End Date Roxy Mehta MD [address] [place] [address] PCP - General 02/23/10 documented as of this encounter
--- OUTSIDE RECORDS SUMMARY | 2024-01-05 03:05 | XMS_ITS | Encounter Summary ---
Author Organization [facility]ending [facility] Address [facility] [place] [address] Care Team Providers Care Hunting Sales Leader Name Role Phone Roxy Mehta MD Primary Care Provider [phone] Reason for Visit * Auth/Cert Specialty Diagnoses / Procedures Referred By Kishore rodriguez Referred To Contact Diagnoses Thrombocythemia Procedures PRO BONE MARROW ASPIRATION W/BX THROUGH SAME INCISION/SITE PRO BONE MARROW BX, NEEDLE/TROCAR (OSC MSURG) BONE MARROW ASP PERFORMED W/BX THRU BX INCISION (OSC MSURG) BONE MARROW,BIOPSY Referral ID Status Reason Start Date Expiration Date Visits Re quested Visits Authorized [id number] 1 1 Encounter Details Date Type Department Care Team (Late st Contact Info) Description 03/18/2015 11:30 AM EST - 03/18/2015 12:30 PM EST Surgery Outpatient [place] [id number] Chris Jacobson MD [facility] [address] [place] [address] (OSC MSURG) BONE MARROW ASP PERFORMED W/BX [...] 5pm or on a weekend: Call the [facility] regasification plant operator at and ask for the physician coal gasification technician covering for your doctor. Instructions following sedation [...] occurs, please contact your M. D. [facility] [address] ??? [place] [address] ??? [phone] ??? [email or web address] [employer] ??? [facility] ??? [facility] ??? [facility] documented in this encounter Medications at Time of Discharge Medication Sig Dispensed Refills Start Date End Date fluticasone propionate (Flonase) 50 mcg/actuation [place], Suspension Daily 07/12/2012 aspirin 81 mg Tablet, [...] procedure. Discharge to: Home Pita Garland, MSN, CURED MEATS SUPERVISOR Nurse Practitioner Section of Hematology/Oncology [facility] Office phone: documented in this encounter Procedure Notes * Pita Garland APRN - 03/18/2015 12:33 PM ESTProcedure(s): BONE MARROW ASPIRATION W BIOPSY Pre-Procedure Diagnose(s): Thrombocytosis BONE MARROW BIOPSY AND ASPIRATION PROCEDURE NOTE Bone Marrow Biopsy & Aspiration with Conscious Sedation Date/Time of Procedure: 03/18/15 at 12:30pm Proceduralist: PITA GARLAND APRN, RN, MS, METER REPAIRER HELPER DIAGNOSIS: Thrombocytosis Pre-Procedure: (x) Consent signed and [...] with Physician as instructed. Pita Garland, MSN, CURED MEATS SUPERVISOR Nurse Practitioner Section of Hematology/Oncology [facility] Office phone: documented in this [...] report acquired (03/18/2015 3:28 PM EST) Pathologist [facility] Cytogenetics Acquired Report Final Report ? [id number] Specimen Type: Bone Marrow Specimen Condition: ~3ml, [...] (Electronic Signature) Verified By: Ward SALCIDO, Ph.D., [facility] Director, Cytogenetics [facility] 03/18/2015 3:28 PM EST Chris Jacobson MD HEMATOLOGY ORDERABLE S E[facility] ROMERO * Bone Marrow Final Report (03/18/2015 12:31 PM EST) Final Diagnosis [id number] ?Location: The signing pathologist has (i) examined the relevant preparation(s) for the specimen(s) and (ii) rendered or confirmed the diagnosis(es). . ?Molecular Genetics RESULTS DIAGNOSIS 1. Thrombocytosis, by history 2. Normocellular marrow with maturing trilineage hematopoiesis. No morphologic features of involvement by a myeloproliferative neoplasm ??are seen. Cytogenetics and molecular studies pending. Myeloid Sequencing Panel (54-Gene Panel) SPECIMEN: ??[id number] Analysis: ??Examination of DNA extracted from peripheral blood or bone marrow aspirates for somatic mutation analysis. Results: ??This sample failed QC metrics post-sequencing. ?? If testing is warranted as per clinical indication, please contact the attending pathologist in order to resubmit an alternative tissue sample. Reviewed by: Ana Betts, PhD, [employer] Van Truck Driver ?04/10/15 16:41 Reviewed by: Tre Whitlock, PhD, [facility], Director-[facility] ([facility], 04/13/15 15:34) Verified date: ??04/24/15 ??JERZY Verified by: ?Monica SALCIDO, Josesito ?(Electronic Signature) ? Bone Marrow Final DIAGNOSIS 1. Thrombocytosis, by history 2. Normocellular marrow with maturing trilineage hematopoiesis. No morphologic features of involvement by a myeloproliferative neoplasm ??are seen. Cytogenetics and molecular studies pending. 03/19/15 [facility] 03/20/15 Verified by: ? Josesito Anderson [...] with results. PERIPHERAL SMEAR WBC 8.31K/ul; RBC 4.49d619/ul; Hgb 13.0; MCV 84.2; RDW 14.1; PLT [...] 04/24/2015 4:46 PM EST [facility] BONE MARROW STRUCTURE / Unknown 03/18/2015 12:31 PM EST 03/18/2015 12:31 PM EST Chris Jacobson MD PATHOLOGY/CYTOLOGY O RDERABLES Performing Organization Address City/[facility]/ZIP Co de Phone Number EDNA ROMERO [facility] [place] [address] * Iron Stain, Bone Marrow (03/18/2015 12:31 PM EST) Bone Marrow Iron Stain See Comment EDAN ROMERO Comment:See Bone Marrow Repo rt [id number] under Hematopathology Reports. Bone marrow specimen (specimen) [...] RN) documented in this encounter Care Teams Hunting Sales Leader Relationship Specialty Start Date End Date Roxy Mehta MD [address] [place] [address] PCP - General 02/23/10 documented as of this encounter
--- OUTSIDE RECORDS SUMMARY | 2024-01-05 03:05 | XMS_ITS | Encounter Summary ---
Author Organization [facility] [place] [address] Care Team Providers Care Electrical Journeyman Name Role Phone Roxy Mehta MD Primary Care Provider [phone] Encounter Details Date Type Department Care Team (Latest Contact Info) Description 09/22/2016 8:14 AM EDT - 09/22/2016 11:59 PM EDT Hospital Encounter Hematology [place] [address] Anemia, unspecified type Discharge Disposition: Home Social [...] End Date fluticasone propionate (Flonase) 50 mcg/actuation [place], Suspension Daily 07/12/2012 cholecalciferol, Vitamin D3, 50 [...] mL/hr documented in this encounter Care Teams Electrical Journeyman Relationship Specialty Start Date End Date Roxy Mehta MD [address] [place] [address] PCP - General 02/23/10 documented as of this encounter
--- OUTSIDE RECORDS SUMMARY | 2024-01-05 03:05 | XMS_ITS | Encounter Summary ---
Author Organization [facility] Address [facility] [place] [address] Care Team Providers Care Carbon Brushes Assembler Name Role Phone Willem Mehta MD Primary Care Provider [phone] Reason for Visit * Reason Comments Skin Check Encounter Details Date Type Department Care Team (Late st Contact Info) Description 01/07/2016 9:15 AM EDT Office Visit Dermatology at [address] [address] [facility] DR WARD [place] [address] [place] (actinic keratosis); Nevus; Giordano angioma; Seborrheic [...] keratosis documented in this encounter Care Teams Carbon Brushes Assembler Relationship Specialty Start Date End Date Willem Mehta MD [address] [address] PCP - General 02/23/10 documented as of this encounter
--- OUTSIDE RECORDS SUMMARY | 2024-01-05 03:05 | XMS_ITS | Encounter Summary ---
Author Organization [facility] Address [facility] [place] [address] Care Team Providers Care Liquefaction Supervisor Name Role Phone Roxy Mehta MD Primary Care Provider [phone] Reason for Visit * Auth/Cert Specialty Diagnoses / Procedures Referred By Kishore t Referred To Contact Diagnoses Thrombocythemia Procedures PRO BONE MARROW ASPIRATION W/BX THROUGH SAME INCISION/SITE PRO BONE MARROW BX, NEEDLE/TROCAR (OSC MSURG) BONE MARROW ASP PERFORMED W/BX THRU BX INCISION (OSC MSURG) BONE MARROW,BIOPSY Referral ID Status Reason Start Date Expiration Date Visits Re quested Visits Authorized [id number] 1 1 Encounter Details Date Type Department Care Team (Latest Contact Info) Description 03/18/2015 10:08 AM EST - 03/18/2015 1:11 PM [facility] [[email or web address] Hospital Encounter Outpatient [place] [phone] Chris Jacobson MD [facility] DR [place] [address] Discharge Disposition: Home Social History Tobacco Use [...] 5pm or on a weekend: Call the [facility] wheel press operator at and ask for the physician nutritional chemist covering for your doctor. Instructions following sedation [...] drainage occurs, please contact your M. D. [facility] [address] ??? [place] [address] ??? [phone] ??? [email or web address] ??? [facility] ??? [facility] ??? [facility] documented in this encounter Medications at Time of Discharge Medication Sig Dispensed Refills Start Date End Date fluticasone propionate (Flonase) 50 mcg/actuation [place], Suspension Daily 07/12/2012 aspirin 81 mg Tablet, [...] procedure. Discharge to: Home Pita Garland, MSN, CROWNING INSPECTOR Nurse Practitioner Section of Hematology/Oncology [facility] Office phone: documented in this encounter Procedure Notes * Pita Garland APRN - 03/18/2015 12:33 PM ESTProcedure(s): BONE MARROW ASPIRATION W BIOPSY Pre-Procedure Diagnose(s): Thrombocytosis BONE MARROW BIOPSY AND ASPIRATION PROCEDURE NOTE Bone Marrow Biopsy & Aspiration with Conscious Sedation Date/Time of Procedure: 03/18/15 at 12:30pm Proceduralist: PITA GARLAND APRN, RN, MS, WEED CUTTER DIAGNOSIS: Thrombocytosis Pre-Procedure: (x) Consent signed and [...] with Physician as instructed. Pita Garland, MSN, CROWNING INSPECTOR Nurse Practitioner Section of Hematology/Oncology [facility] Office phone: documented in this [...] chromo report acquired (03/18/2015 3:28 PM EST) [facility] Cytogenetics Acquired Report Final Report ? [id number] Specimen Type: Bone Marrow Specimen Condition: ~3ml, [...] (Electronic Signature) Verified By: Ward SALCIDO, Ph.D., [facility] Director, Cytogenetics E[facility] ROMERO 03/18/2015 3:28 PM EST Chris Jacobson MD HEMATOLOGY ORDERABLE S EDNA ROMERO * Bone Marrow Final Report (03/18/2015 12:31 PM EST) Final Diagnosis [id number] ?Location: The signing pathologist has (i) examined the relevant preparation(s) for the specimen(s) and (ii) rendered or confirmed the diagnosis(es). . ?Molecular Genetics RESULTS DIAGNOSIS 1. Thrombocytosis, by history 2. Normocellular marrow with maturing trilineage hematopoiesis. No morphologic features of involvement by a myeloproliferative neoplasm ??are seen. Cytogenetics and molecular studies pending. Myeloid Sequencing Panel (54-Gene Panel) SPECIMEN: ??[id number] Analysis: ??Examination of DNA extracted from peripheral blood or bone marrow aspirates for somatic mutation analysis. Results: ??This sample failed QC metrics post-sequencing. ?? If testing is warranted as per clinical indication, please contact the attending pathologist in order to resubmit an alternative tissue sample. Reviewed by: Ana Betts, PhD, [employer] Elevator Constructor Electric ?04/10/15 16:41 Reviewed by: Tre Whitlock, PhD, [facility], Director-[facility] (t, 04/13/15 15:34) Verified date: ??04/24/15 ??JERZY Verified by: ?Monica SALCIDO, Josesito ?(Electronic Signature) ? Bone Marrow Final DIAGNOSIS 1. Thrombocytosis, by history 2. Normocellular marrow with maturing trilineage hematopoiesis. No morphologic features of involvement by a myeloproliferative neoplasm ??are seen. Cytogenetics and molecular studies pending. 03/19/15 [facility] 03/20/15 Verified by: ? Monica SALCIDO, Josesito [...] with results. PERIPHERAL SMEAR WBC 8.31K/ul; RBC 4.89c601/ul; Hgb 13.0; MCV 84.2; RDW 14.1; PLT [...] for myeloproliferative disorder 04/24/2015 4:46 PM EST [facility] BONE MARROW STRUCTURE / Unknown 03/18/2015 12:31 PM EST 03/18/2015 12:31 PM EST Chris Jacobson MD PATHOLOGY/CYTOLOGY O RDERABLES Performing Organization Address City/[facility]/ZIP Co de Phone Number EDNA ROMERO [facility] [place] [address] * Iron Stain, Bone Marrow (03/18/2015 12:31 PM EST) Bone Marrow Iron Stain See Comment EDNA ROMERO Comment:See Bone Marrow Repo rt [id number] under Hematopathology Reports. Bone marrow specimen (specimen) [...] RN) documented in this encounter Care Teams Liquefaction Supervisor Relationship Specialty Start Date End Date Roxy Mehta MD [address] [facility] [address] [place] [address] PCP - General 02/23/10 documented as of this encounter
--- OUTSIDE RECORDS SUMMARY | 2024-01-05 03:05 | XMS_ITS | Encounter Summary ---
Author Organization [facility] Address [facility] [place] [address] Care Team Providers Care Contact Center Agent Name Role Phone Roxy Mehta MD Primary Care Provider [phone] Encounter Details Date Type Department Care Team (Late st Contact Info) Description 09/14/2016 External Results [facility] [place] [address] Samantha Pardo, SPECIALIST WOUND CARE [facility] [address] [place] [address] Social History Tobacco Use Types Packs/Day Years [...] * Scan Doc: Chemotherapy (09/14/2016) Samantha Pardo SPECIALIST WOUND CARE MEDIA MGR SCAN EXT O RDR/RSLT documented in this encounter Visit Diagnoses Not on filedocumented in this encounter Care Teams Contact Center Agent Relationship Specialty Start Date End Date Roxy Mehta MD [address] [place] [address] PCP - General 02/23/10 documented as of this encounter
[2024-01-05 12:33] LABS: Ferritin 212 ng/mL (8-252)
== END 2024-01-05 03:00 | disposition home or self-care (01) ==
LOC: LOS 03:02
PROVIDERS: PCP Family Medicine; Visit Provider Family Medicine
DX: D50.9 Iron deficiency anemia, unspecified
CPT/HCPCS: 36415; 82728

== ENCOUNTER 2024-02-06 02:29 | Outpatient (CLI) | payer MEDICARE, SELFPAY ==
[2024-02-06 13:03] LABS: Ferritin 204 ng/mL (8-252)
== END 2024-02-06 02:30 | disposition home or self-care (01) ==
LOC: LOS 02:29
PROVIDERS: PCP Family Medicine; Visit Provider Family Medicine
DX: D50.9 Iron deficiency anemia, unspecified (principal)
CPT/HCPCS: 36415; 82728

== ENCOUNTER 2024-03-11 02:44 | Outpatient (CLI) | payer MEDICARE, SELFPAY ==
[2024-03-11 12:26] LABS: HCT 42.1 % (36.0-46.0); HGB 13.9 g/dL (11.2-15.7); MCH 30.3 pg (27.0-33.0); MCV 92 fL (80-95); MPV 9.5 fL (8.0-11.0); Platelet Count 504 10^3/uL (130-400); RBC 4.59 10^6/uL (3.93-5.22); RDW 13.5 % (11.7-14.6); RDW-SD 45.5 fL; WBC 8.39 10^3/uL (4.4-10.8)
[2024-03-11 12:45] LABS: ALT 26 U/L (14-59); AST 19 U/L (15-37); Albumin 3.2 g/dL (3.4-5.0); Alkaline Phosphatase 146 U/L (46-116); Anion Gap 7.8 mmol/L (3-11); BUN 19 mg/dL (7-18); Bilirubin, Total 0.32 mg/dL (0.2-1.0); CO2 28.2 mmol/L (21.0-32.0); CREATININE 0.9 mg/dL (0.55-1.02); Calcium 8.9 mg/dL (8.5-10.1); Calculated LDL 70 mg/dL (<100); Chloride 107 mmol/L (98-107); Cholesterol 174 mg/dL (<200); Estimated GFR 63.83 (mL/min/1.73m2); Ferritin 172 ng/mL (8-252); Glucose 106 mg/dL (74-106); HDL Cholesterol 75 mg/dL (40-60); Potassium 3.8 mmol/L (3.5-5.1); Sodium 143 mmol/L (136-145); TSH (W/Ref FT4) 2.05 uIU/mL (0.36-3.74); Total Protein 7.1 g/dL (6.4-8.2); Triglyceride 145 mg/dL (<150)
[2024-03-11 14:27] LABS: Hemoglobin A1C 6.2 % (<5.7)
== END 2024-03-11 02:45 | disposition home or self-care (01) ==
LOC: LOS 02:44
PROVIDERS: PCP Family Medicine; Visit Provider Family Medicine
DX: D64.9 Anemia, unspecified (principal); E03.9 Hypothyroidism, unspecified; E11.9 Type 2 diabetes mellitus without complications; E78.5 Hyperlipidemia, unspecified; D47.3 Essential (hemorrhagic) thrombocythemia; I10 Essential (primary) hypertension
CPT/HCPCS: 36415; 80053; 80061; 85027; 82043; 82570; 82728; 83036; 84443

== ENCOUNTER 2024-04-10 03:26 | Outpatient (CLI) | payer MEDICARE, SELFPAY ==
--- NOTE | 2024-04-10 10:45 | DI.US_ITS ---
Exam(s) US CAROTID EXAM: US CAROTID CLINICAL HISTORY: dizziness,r42. TECHNIQUE: Ultrasound carotids performed using grayscale, color-flow, and spectral Doppler imaging. COMPARISON: No exams were available for comparison FINDINGS: RIGHT CAROTID ARTERY: Plaque: Mild to moderate calcific plaque is seen in the proximal and mid ICA. Velocity elevation: None. LEFT CAROTID ARTERY: Plaque: Mild calcific plaque is seen in the carotid bulb and proximal ICA. Velocity elevation: None. VERTEBRAL ARTERIES: Antegrade flow. Measurements: R Bulb: 59.5cm/s PS / 7.6cm/s ED R CCA: 88cm/s PS / 16.7cm/s ED R ECA: 90.6cm/s PS / 7.6cm/s ED R ICA Prox: 53cm/s PS / 10.2cm/s ED R ICA Mid: 64.6cm/s PS / 15.4cm/s ED R ICA Distal: 64.6cm/s PS /16.7cm/s ED R Vert: 44.9cm/s PS / 7.6cm/s ED R SVR: 0.7 R DVR: 0.9 L Bulb: 93.6cm/s PS / 17.9cm/s ED L CCA: 82.1cm/s PS / 19.1cm/s ED L ECA: 82.1cm/s PS / 0cm/s ED L ICA Prox: 84.6cm/s PS / 19.1cm/s ED L ICA Mid: 89.8cm/s PS / 19.1cm/s ED L ICA Distal: 57.4cm/s PS / 19cm/s ED L Vert: 65cm/s PS / 13.9cm/s ED L SVR: 1.1 L DVR: 0.9 IMPRESSION: No evidence for hemodynamically significant carotid stenosis. Criteria for Carotid Stenosis: Normal: ICA PSV <125 cm/s no plaque or intimal thickening is visible. <50% stenosis: ICA PSV <125 cm/s and plaque or intimal thickening is visible. 50-69% stenosis: ICA PSV is 125-250 cm/s and plaque is visible. >70% stenosis to near occlusion: ICA PSV >250 cm/s with visible plaque and luminal narrowing. DATA REPOSITORY:
== END 2024-04-10 03:46 ==
LOC: DI 03:26
PROVIDERS: PCP Family Medicine; Visit Provider Family Medicine
DX: R42 Dizziness and giddiness (principal)
CPT/HCPCS: 93880

== ENCOUNTER 2024-05-02 04:48 | Outpatient (CLI) | payer MEDICARE, SELFPAY ==
[2024-05-02 13:18] LABS: Ferritin 140 ng/mL (8-252)
== END 2024-05-02 04:49 | disposition home or self-care (01) ==
LOC: LOS 04:48
PROVIDERS: PCP Family Medicine; Visit Provider Family Medicine
DX: D50.9 Iron deficiency anemia, unspecified (principal)
CPT/HCPCS: 36415; 82728

== ENCOUNTER 2024-06-06 03:02 | Outpatient (CLI) | payer MEDICARE, SELFPAY ==
[2024-06-06 13:09] LABS: Ferritin 149 ng/mL (8-252)
== END 2024-06-06 03:03 | disposition home or self-care (01) ==
LOC: LOS 03:02
PROVIDERS: PCP Family Medicine; Visit Provider Family Medicine
DX: D50.9 Iron deficiency anemia, unspecified (principal)
CPT/HCPCS: 36415; 82728

== ENCOUNTER 2024-09-11 05:09 | Outpatient (CLI) | payer MEDICARE, SELFPAY ==
[2024-09-11 13:03] LABS: Ferritin 177 ng/mL (8-252)
== END 2024-09-11 05:10 | disposition home or self-care (01) ==
LOC: LOS 05:09
PROVIDERS: PCP Family Medicine; Visit Provider Family Medicine
DX: D50.9 Iron deficiency anemia, unspecified (principal)
CPT/HCPCS: 36415; 82728

== ENCOUNTER 2024-12-26 00:50 | Outpatient (CLI) | payer MEDICARE, SELFPAY ==
[2024-12-26 14:25] LABS: HCT 45.1 % (36.0-46.0); HGB 14.7 g/dL (11.2-15.7); MCH 29.8 pg (27.0-33.0); MCHC 32.6 % (32.0-36.0); MCV 91 fL (80-95); MPV 9.3 fL (8.0-11.0); Platelet Count 457 10^3/uL (130-400); RBC 4.94 10^6/uL (3.93-5.22); RDW 13.0 % (11.7-14.6); RDW-SD 43.6 fL; WBC 8.14 10^3/uL (4.4-10.8)
[2024-12-26 14:54] LABS: ALT 28 U/L (14-59); AST 23 U/L (15-37); Albumin 3.6 g/dL (3.4-5.0); Alkaline Phosphatase 134 U/L (46-116); Anion Gap 7.8 mmol/L (3-11); BUN 21 mg/dL (7-18); Bilirubin, Total 0.4 mg/dL (0.2-1.0); CO2 28.2 mmol/L (21.0-32.0); Calcium 8.7 mg/dL (8.5-10.1); Calculated LDL 89 mg/dL (<100); Chloride 105 mmol/L (98-107); Cholesterol 193 mg/dL (<200); Estimated GFR 73.06 (mL/min/1.73m2); Glucose 118 mg/dL (74-106); HDL Cholesterol 76 mg/dL (>or=50); Potassium 3.8 mmol/L (3.5-5.1); Sodium 141 mmol/L (136-145); TSH (W/Ref FT4) 1.22 uIU/mL (0.36-3.74); Total Protein 7.2 g/dL (6.4-8.2); Triglyceride 141 mg/dL (<150)
[2024-12-26 19:40] LABS: Ferritin 186 ng/mL (8-252)
[2024-12-26 19:42] LABS: Hemoglobin A1C 5.8 % (<5.7)
[2024-12-27 16:20] LABS: COMMENT (LAB VIEW ONLY) 184.63 mg/dL
== END 2024-12-26 00:51 | disposition home or self-care (01) ==
LOC: LOS 00:50
PROVIDERS: PCP Family Medicine; Visit Provider Family Medicine
DX: E11.9 Type 2 diabetes mellitus without complications (principal); Z79.01 Long term (current) use of anticoagulants; I10 Essential (primary) hypertension; E03.9 Hypothyroidism, unspecified; D50.9 Iron deficiency anemia, unspecified
CPT/HCPCS: 36415; 80053; 80061; 85027; 82043; 82570; 82728; 83036; 84443